=== PATIENT | male | born 1945 | race Caucasian/White ===

== ENCOUNTER → 2019-01-25 | Day surgery (SDC) | payer MEDICARE ==
[~2019-01-25] MED LIST: LACTATED RINGERS 1,000 ML IV SCH; LIDOCAINE 1% 20 ML VIAL (10MG/ML) FOR IV START INTRADERMA PRN; PROPOFOL 10 MG/ML 20 ML VIAL IV ONE
[2019-01-25 07:41] VITALS: TEMP 97.3
[2019-01-25 07:56] LABS: Glucose,Whole Blood 77 mg/dL (75-99)
[2019-01-25 08:38] VITALS: RESP 17
--- NOTE | 2019-01-25 08:40 | P.PCN ---
Date of Procedure: 01/25/19 Procedure(s) Performed: BRIEF HISTORY: Patient is a 73-year-old pleasant male, scheduled for an elective colonoscopy as a part of surveillance of prior history of colon polyps. Last colonoscopy was 5 years ago. PROCEDURE PERFORMED: Colonoscopy with snare polypectomy and Endo Clip placement. PREOPERATIVE DIAGNOSIS: History of colon polyps. IV sedation per Anesthesia. PROCEDURE: After informed consent was obtained, the patient, was brought into the endoscopy unit. IV sedation was administered by Anesthesia under continuous monitoring. Digital rectal examination was normal. Initially the Olympus CF-160 flexible video colonoscope was then inserted in the rectum, gradually advanced into the cecum without any difficulty. Careful examination was performed as the scope was gradually being withdrawn. Ileocecal valve and the appendiceal orifice were visualized and appeared normal. Prep was excellent. In the base of the cecum there was a 3 cm broad-based polyp that was removed by piecemeal snare polypectomy following which an Endo Clip was placed. Almost complete polypectomy was accomplished. Mucosa of the cecum, ascending colon, appeared normal. The transverse colon there was a 5 mm polyp that was removed by snare polypectomy. In the sigmoid colon there was a 1 cm pegylated polyp removed by snare polypectomy. In the mid rectum there was another 1 m polyp removed by snare polypectomy. The rest of the transverse colon, descending colon, sigmoid colon, and rectum appeared normal scattered diffuse diverticulosis seen.. Retroflexion was performed in the rectum and no lesions were seen. The patient tolerated the procedure well. IMPRESSION: 3 cm broad-based cecal polyp in the base of the cecum status post piecemeal snare polypectomy followed by Endo Clip placement 5 mm transverse colon polyp status post polypectomy 1 cm sigmoid colon polyp status post polypectomy 1 cm mid rectal polyp status post polypectomy Diffuse diverticulosis RECOMMENDATIONS: Findings of this examination were discussed with the patient as well as his family. He was advised to follow with the biopsy results. He'll be seen in the office in 10 days and based on the biopsy results will plan a repeat colonoscopy in 3-6 months to ensure complete polypectomy.
[2019-01-25 08:48] VITALS: BP 117/74; PULSE 74
== END ==
LOC: ORWHC2ENDO 07:13
PROVIDERS: ATTEND Internal Medicine Gastroenterology
DX: Z12.11 Encounter for screening for malignant neoplasm of colon (principal); D12.0 Benign neoplasm of cecum; K62.1 Rectal polyp; K62.89 Other specified diseases of anus and rectum; K63.89 Other specified diseases of intestine; K63.3 Ulcer of intestine; K57.90 Diverticulosis of intestine, part unspecified, without perforation or abscess without bleeding; Z86.010 Personal history of colon polyps; I10 Essential (primary) hypertension; E78.5 Hyperlipidemia, unspecified; R60.0 Localized edema; G47.33 Obstructive sleep apnea (adult) (pediatric); E11.9 Type 2 diabetes mellitus without complications; H40.9 Unspecified glaucoma; Z79.84 Long term (current) use of oral hypoglycemic drugs; Z79.82 Long term (current) use of aspirin; Z79.899 Other long term (current) drug therapy; Z91.041 Radiographic dye allergy status
CPT/HCPCS: 45385; 88305; J2704; 45382

== ENCOUNTER → 2024-04-03 | Outpatient (CLI) | payer MEDICARE ==
[2024-04-03 10:26] LABS: African American GFR (CKD) 50 (>60 ml/min/1.73 sqM); Blood Urea Nitrogen 37 mg/dL (9-20); Non-African American GFR(CKD) 43 (>60 ml/min/1.73 sqM)
--- NOTE | 2024-04-03 11:49 | XR ---
EXAMINATION TYPE: XR chest 2V DATE OF EXAM: 04/03/2024 11:14 AM COMPARISON: Chest radiographs from CLINICAL INDICATION: Male, 78 years old with history of, concern for pancreatic cancer, looking for m etastatic disease. TECHNIQUE: XR chest 2V Frontal and lateral views of the chest. FINDINGS: Lungs/Pleura: There is no evidence of pleural effusion, focal consolidation, or pneumothorax. Pulmonary vascularity: Unremarkable. Heart/mediastinum: Cardiomediastinal silhouette is unremarkable. Musculoskeletal: No acute osseous pathology. Other findings: None IMPRESSION: No acute cardiopulmonary disease/process. [facility], , 04/03/2024 11:46 AM
--- NOTE | 2024-04-03 17:27 | CT ---
EXAMINATION TYPE: CT urogram wo/w con CT DLP: 4545 mGycm, Automated exposure control for dose reduction was used. DATE OF EXAM: 04/03/2024 11:13 AM COMPARISON: None CLINICAL INDICATION:Male, 78 years old with history of C61 PROSTATE CANCER; PHH, prostate ca TECHNIQUE: Urogram of the abdomen and pelvis was performed before and after the administration of 80 cc of IV co ntrast Isovue 300 contrast. Delayed imaging was performed. Coronal and sagittal reformats were perfor med. One or more CT dose reduction strategies were utilized during this examination. 2D and 3D recons tructions are performed to assist visualization of the urinary tract on a separate workstation. FINDINGS: GENITOURINARY: RIGHT KIDNEY AND URETER: Couple of nonobstructive calculi with largest measuring up to 3 mm. No hydro nephrosis or hydroureter. Upper pole thin-walled peripherally calcified 3.2 cm nonenhancing cyst. The wall measures up to 3 mm in thickness. Exophytic right lower pole nonenhancing 5.1 cm cyst. No uroth elial lesions: no filling defect, dilation, stricture or wall thickening. LEFT KIDNEY AND URETER: Nonobstructive lower pole 2 mm calculus. No hydronephrosis or hydroureter. Po sterior left mid kidney exophytic 1.8 cm nonenhancing cyst. Additional superior pole nonenhancing 1.1 cm cyst. No urothelial lesions: no filling defect, dilation, stricture or wall thickening. URINARY BLADDER: Not optimally distended. Normal, no calculi, mass or other lesions. REPRODUCTIVE: Mildly enlarged prostate gland measuring 5.0 cm in transverse dimension. Median lobe in dents upon the urinary bladder base. There is some subtle patchy heterogenous enhancement within the left lateral aspect of the prostate gland. Right-sided hydrocele partially visualized. ABDOMEN LIVER: Calcified granuloma within the right hepatic dome. Couple of hepatic cysts with largest measur ing up to 3.2 cm.. Liver is diffusely hypodense tendon consistent with steatosis. GALLBLADDER AND BILE DUCTS: Unremarkable PANCREAS: Unremarkable. SPLEEN: Scattered calcified granulomas. ADRENAL GLANDS: Unremarkable. STOMACH AND BOWEL: Pancolonic diverticulosis. No focal bowel wall thickening or surrounding inflammat ory changes. The appendix is within normal limits. No evidence of bowel obstruction. PERITONEUM: No evidence of pneumoperitoneum, free fluid. No enlarged lymph nodes greater than 1 cent imeter short axis. VASCULATURE: Mild atherosclerotic calcifications are present throughout the abdominal aorta and its b ranches. No abdominal aortic aneurysm. MUSCULOSKELETAL: No acute osseous abnormalities. No aggressive osseous lesion. Postsurgical changes f rom lumbar fusion at L1-S1 with bilateral pedicular screws and rods and disc spaces. Laminectomy post ges identified at L3. [facility] of the lower thoracic spine. Grade 1 anterolisthesis of L3 on L4. Mild ret rolisthesis of L1 on L2. SOFT TISSUE/ABDOMINAL WALL: Small fat filled umbilical hernia. LOWER CHEST: Cardiomegaly. Moderate coronary artery calcifications. Aortic valvular calcifications. B ilateral gynecomastia.. Calcified granuloma within the left lung base. Bibasilar linear scarring or a telectasis. IMPRESSION: 1. No evidence of enhancing renal/urothelial neoplasm. Bilateral simple renal cysts with a right carlos l upper pole 3.2 cm Bosniak IIF cyst without evidence of enhancement. Follow-up CT or MR abdomen (court al mass protocol) in 6 months is recommended. Additional nonobstructive bilateral renal calculi. 2. Prostatomegaly with some patchy enhancement within the left lateral aspect which may represent pro state cancer. No lymphadenopathy. 3. Pancolonic diverticulosis. 4. Sequelae of prior granulomatous disease. 5. Hepatic steatosis. [facility], , 04/03/2024 5:24 PM
== END | disposition home or self-care (01) ==
LOC: RADCTMAIN 09:19
PROVIDERS: ATTEND Urology
CPT/HCPCS: 36415; 71046; 74178; 74400; 82565; 84520

== ENCOUNTER → 2024-05-09 | Outpatient (CLI) | payer MEDICARE ==
--- NOTE | 2024-05-09 21:14 | NM ---
EXAMINATION TYPE: NM bone scan whole body DATE OF EXAM: 05/09/2024 2:04 PM CLINICAL INDICATION:Male, 78 years old with history of C61 PROSTATE CX; COMPARISON: 04/03/2024 TECHNIQUE: Intravenous administration 21.5 mCi Tc 99m MDP followed by multiple scintigraphic images o f the appendicular and axial skeleton. Images acquired 4 hours post injection. FINDINGS: No abnormal uptake is identified within the appendicular or axial skeleton to suggest metastatic dise ase. There is increased uptake within the bilateral shoulder, sternoclavicular, and sacroiliac joints con sistent with degenerative changes. No other photopenic areas or areas of increased activity are ident ified. Physiologic radiotracer activity is demonstrated in the kidneys and bladder. IMPRESSION: Nothing to suggest metastatic disease. [facility], , 05/09/2024 9:12 PM
== END | disposition home or self-care (01) ==
LOC: RADNMMAIN 09:05
PROVIDERS: ATTEND Urology
DX: C61 Malignant neoplasm of prostate (principal)
CPT/HCPCS: 78306; A9503

== ENCOUNTER 2024-08-12 20:22 | Inpatient (IN) | payer MEDICARE ==
--- NOTE | 2024-08-12 20:42 | ED ---
Abdominal Pain HPI - General Chief Complaint: Abdominal Pain Stated Complaint: Abd Pain Time Seen by Provider: 08/12/24 20:41 Source: patient, EMS Mode of arrival: EMS Limitations: no limitations - History of Present Illness Initial Comments: 79-year-old male presented the ER via EMS for evaluation of abdominal pain. 3 hours prior to arrival patient started to experience a sharp epigastric abdominal discomfort. He states it is consistent and rating his pain currently a 10 out of 10. He denies any nausea, vomiting, fevers, chills, diarrhea or urinary complaints. Patient reports his last bowel movement was approximately 3 days ago. He denies any chest pain, shortness of breath, dizziness, lightheadedness, cough, congestion or peripheral edema. Upon examination, patient appears to be in pain and is requesting pain medication. Patient did receive 50 mcg of fentanyl and 4 mg of Zofran by EMS. Patient has prostate cancer and is currently scheduled to begin radiation soon. He is unsure who his oncologist is. No other complaints. - Related Data Home Medications Medication Instructions Recorded Confirmed Aspirin [Adult Low Dose Aspirin EC] 81 mg PO DAILY 01/24/19 01/25/19 Atorvastatin [Lipitor] 20 mg PO QAM 01/24/19 01/25/19 Furosemide [Lasix] 20 mg PO QAM 01/24/19 01/25/19 Glimepiride [Amaryl] 4 mg PO BID 01/24/19 01/25/19 Latanoprost/Pf [Latanoprost 0.005% 1 drops BOTH EYES HS 01/24/19 01/25/19 Eye Drop] Metoprolol Tartrate [Lopressor] 50 g PO BID 01/24/19 01/25/19 Potassium Chloride [K-Tab ER] 10 meq PO QAM 01/24/19 01/25/19 Timolol 0.5% Ophth Soln [Timoptic 1 drop BOTH EYES BID 01/24/19 01/25/19 0.5% Ophth Soln] metFORMIN HCL [Glucophage] 1,000 mg PO BID 01/24/19 01/25/19 Allergies Allergy/AdvReac Type Severity Reaction Status Date / Time Iodinated Contrast Media Allergy Swelling Verified 08/12/24 20:29 [Iodinated Contrast- Oral and IV Dye] Review of Systems ROS Statement: Those systems with pertinent positive or pertinent negative responses have been documented in the HPI. ROS Other: All systems not noted in ROS Statement are negative. Past Medical History Past Medical History: Cancer, Diabetes Mellitus, Eye Disorder, Hyperlipidemia, Hypertension Additional Past Medical History / Comment(s): Glaucoma, Stage 3 pancreatic ca History of Any Multi-Drug Resistant Organisms: None Reported Additional Past Surgical History / Comment(s): NASAL POLYPS. Past Anesthesia/Blood Transfusion Reactions: No Reported Reaction Additional Past Anesthesia/Blood Transfusion Reaction / Comment(s): DAD, POST DENTAL PROCESS (SYNCOPE) Past Psychological History: No Psychological Hx Reported Smoking Status: Never smoker Past Alcohol Use History: Rare Past Drug Use History: None Reported General Exam Limitations: no limitations General appearance: alert, in no apparent distress, other (Appears uncomfortable and in pain) Respiratory exam: Present: normal lung sounds bilaterally. Absent: respiratory distress, wheezes, rales, rhonchi, stridor Cardiovascular Exam: Present: normal rhythm, irregular rhythm, normal heart sounds. Absent: systolic murmur, diastolic murmur, rubs, gallop, clicks GI/Abdominal exam: Present: soft, tenderness (Exquisite epigastric), normal bowel sounds Extremities exam: Present: normal inspection, full ROM, normal capillary refill. Absent: tenderness, pedal edema, joint swelling, calf tenderness Neurological exam: Present: alert, oriented X3, CN II-XII intact Skin exam: Present: warm, dry, intact, normal color. Absent: rash Course Vital Signs 08/12/24 08/12/24 08/12/24 20:25 21:35 22:23 Temperature 98.1 F Pulse Rate 61 71 78 Respiratory 18 18 10 L Rate Blood Pressure 94/47 115/58 93/67 O2 Sat by Pulse 94 L 97 95 Oximetry - Reevaluation(s) Reevaluation #1: 08/12/24 21:45 Case discussed with on-call general surgery, Dr. Raymond, who advised on emergent surgical intervention. Requesting ICU bed post op. 08/12/24 21:47 Patient reevaluated. Family at bedside. No signs of acute distress. Patient currently rating pain 9-10. Patient and family are agreeable for surgical intervention at this time. Medical Decision Making - Medical Decision Making Was pt. sent in by a medical professional or institution (, PA, SLUBBER TENDER, urgent care, hospital, or senior living...) When possible be specific @ -No Did you speak to anyone other than the patient for history (EMS, parent, family, police, friend...)? What history was obtained from this source @ -Family, at bedside, aiding in HPI and past medical history. Did you review nursing and triage notes (agree or disagree)? Why? @ -I reviewed and agree with nursing and triage notes Were old charts reviewed (outside hosp., previous admission, EMS record, old EKG, old radiological studies, urgent care reports/EKG's, senior living records)? Report findings @ -No old charts were reviewed Differential Diagnosis (chest pain, altered mental status, abdominal pain women, abdominal pain men, vaginal bleeding, weakness, fever, dyspnea, syncope, headache, dizziness, GI bleed, back pain, seizure, CVA, palpatations, mental health, musculoskeletal)? @ -Differential Abdominal Pain Men:Appendicitis, cholecystitis, diverticulosis, ischemic bowel, pancreatitis, hepatitis, UTI, gastroenteritis, AAA, incarcerated hernia, bowel obstruction, constipation, inflammatory bowel, hepatitis, peptic ulcer disease, splenic infarction, perforated viscus, testicular torsion, this is not meant to be an all-inclusive list EKG interpreted by me (3pts min.). @ -As above X-rays interpreted by me (1pt min.). @ -None done CT interpreted by me (1pt min.). @ -CT abdomen pelvis showing extensive pneumoperitoneum throughout the abdomen. Likely due to perforation of either the stomach or proximal duodenum. U/S interpreted by me (1pt. min.). @ -None done What testing was considered but not performed or refused? (CT, X-rays, U/S, labs)? Why? @ -None What meds were considered but not given or refused? Why? @ -None Did you discuss the management of the patient with other professionals (professionals i.e. DrJuan José, PA, SLUBBER TENDER, lab, RT, psych nurse, social media sr strategy manager, brilliandeer looper, teacher, deputy juvenile officer, egg caser)? Give summary @ -Yes, case discussed with on-call surgery, Dr. Raymond, who advised on emergent surgical intervention. Also, requesting ICU bed post op. Dr. Le discussed ICU admission, post op, with Dr. Carbajal. Was smoking cessation discussed for >3mins.? @ -No Was critical care preformed (if so, how long)? @ -Yes, 31 minutes Were there social determinants of health that impacted care today? How? (Homelessness, low income, unemployed, alcoholism, drug addiction, transp ortation, low edu. Level, literacy, decrease access to med. care, detention, rehab)? @ -No Was there de-escalation of care discussed even if they declined (Discuss DNR or withdrawal of care, Hospice)? DNR status @ -No What co-morbidities impacted this encounter? (DM, HTN, Smoking, COPD, CAD, Cancer, CVA, ARF, Chemo, Hep., AIDS, mental health diagnosis, sleep apnea, morbid obesity)? @ -Diabetes mellitus, atrial fibrillation on Xarelto, hypertension, prostate cancer not currently on radiation or chemotherapy, Hyperlipidemia Was patient admitted / discharged? Hospital course, mention meds given and route, prescriptions, significant lab abnormalities, going to OR and other pe rtinent info. @ -To OR. 79 year old male presenting to the ER via EMS for evaluation for sudden onset abdominal pain. Vitals upon arrival remarkable for temperature 98.1F, heart rate 61, respiratory rate 18, blood pressure 94/47, oxygen saturation 94% on room air. Patient appears extremely uncomfortable screaming in pain requesting pain medicine upon evaluation. There is exquisite epigastric abdominal tenderness noted. Laboratory studies obtained showing a leukocytosis of 11.0. Microcytic hypochromic anemia with a hemoglobin of 7.0. PT 14.5, INR 1.4, PT APTT 22.5. Lactic 2.3. TY with a BUN of 93, creatinine 2.55 with a GFR 23. Lipase 1098. Troponin elevated at 0.045. EKG showing atrial fibrillation ventricular rate 71. CT abdomen pelvis showing extensive pneumoperitoneum. Laboratory and CT findings discussed with on-call surgery, Dr. Raymond, who advised on emergent surgical intervention. Family is agreeable. Surgery also requesting ICU bed after surgery. Patient given 1 L IV fluid bolus, Toradol, Dilaudid in the emergency department for pain control. Blood pressure improvement to 115/58 after IV fluid bolus. Blood cultures obtained and patient started on Unasyn for infection prophylaxis. Given hemoglobin of 7, 2 units of packed red blood cells ordered. Patient will go to the OR from the emergency department for surgical intervention. Case discussed with ED attending, Dr. Le, who spoke with Dr. Carbajal for ICU admission. Undiagnosed new problem with uncertain prognosis? @ -No Drug Therapy requiring intensive monitoring for toxicity (Heparin, Nitro, Insulin, Cardizem)? @ -No Were any procedures done? @ -No Diagnosis/symptom? @ -Pneumoperitoneum Acute, or Chronic, or Acute on Chronic? @ -Acute Uncomplicated (without systemic symptoms) or Complicated (systemic symptoms)? @ -Complicated Side effects of treatment? @ -No Exacerbation, Progression, or Severe Exacerbation? @ -No Poses a threat to life or bodily function? How? (Chest pain, [place], [place], pneumonia, PE, COPD, DKA, ARF, appy, cholecystitis, CVA, Diverticulitis, Homicidal, Suicidal, threat to staff... and all critical care pts) @ -Yes - Lab Data Result diagrams: 08/12/24 20:30 08/12/24 20:30 Lab Results 08/12/24 08/12/24 08/12/24 Range/Units 20:30 20:30 20:30 WBC 11.0 H (3.8-10.6) k/uL RBC 3.04 L (4.30-5.90) m/uL Hgb 7.0 L (13.0-17.5) gm/dL Hct 23.7 L (39.0-53.0) % MCV 78.1 L (80.0-100.0) fL MCH 23.2 L (25.0-35.0) pg MCHC 29.6 L (31.0-37.0) g/dL RDW 21.6 H (11.5-15.5) % Plt Count 500 H (150-450) k/uL MPV 6.7 Neutrophils % (Manual) 89 % Lymphocytes % (Manual) 9 % Eosinophils % (Manual) 2 % Neutrophils # (Manual) 9.79 H (1.3-7.7) k/uL Lymphocytes # (Manual) 0.99 L (1.0-4.8) k/uL Eosinophils # (Manual) 0.22 (0-0.7) k/uL Nucleated RBCs 0 (0-0) /100 WBC Manual Slide Review Performed Polychromasia Present Hypochromasia Marked Poikilocytosis Slight Poikilocytosis (manual Present Anisocytosis Moderate Anisocytosis (manual) Present Microcytosis Moderate Ovalocytes Present Fragmented RBCs Present PT (10.0-12.5) sec INR (<1.2) APTT (22.0-30.0) sec Sodium 137 (137-145) mmol/L Potassium 4.0 (3.5-5.1) mmol/L Chloride 95 L (98-107) mmol/L Carbon Dioxide 31 H (22-30) mmol/L Anion Gap 11 mmol/L BUN 93 H (9-20) mg/dL Creatinine 2.55 H (0.66-1.25) mg/dL Est GFR (CKD-EPI)AfAm 27 (>60 ml/min/1.73 sqM) Est GFR (CKD-EPI)NonAf 23 (>60 ml/min/1.73 sqM) Glucose 198 H (74-99) mg/dL Plasma Lactic Acid Amari 2.3 H* (0.7-2.0) mmol/L Calcium 8.5 (8.4-10.2) mg/dL Total Bilirubin 1.1 (0.2-1.3) mg/dL AST 25 (17-59) U/L ALT 15 (4-49) U/L Alkaline Phosphatase 70 (38-126) U/L Troponin I (0.000-0.034) ng/mL Total Protein 6.0 L (6.3-8.2) g/dL Albumin 2.9 L (3.5-5.0) g/dL Amylase 66 (30-110) U/L Lipase 1098 H (23-300) U/L Blood Type Recheck Bld Type Recheck Status Crossmatch Spec Expiration Date 08/12/24 08/12/24 08/12/24 Range/Units 20:30 20:30 21:25 WBC (3.8-10.6) k/uL RBC (4.30-5.90) m/uL Hgb (13.0-17.5) gm/dL Hct (39.0-53.0) % MCV (80.0-100.0) fL MCH (25.0-35.0) pg MCHC (31.0-37.0) g/dL RDW (11.5-15.5) % Plt Count (150-450) k/uL MPV Neutrophils % (Manual) % Lymphocytes % (Manual) % Eosinophils % (Manual) % Neutrophils # (Manual) (1.3-7.7) k/uL Lymphocytes # (Manual) (1.0-4.8) k/uL Eosinophils # (Manual) (0-0.7) k/uL Nucleated RBCs (0-0) /100 WBC Manual Slide Review Polychromasia Hypochromasia Poikilocytosis Poikilocytosis (manual Anisocytosis Anisocytosis (manual) Microcytosis Ovalocytes Fragmented RBCs PT 14.5 H (10.0-12.5) sec INR 1.4 H (<1.2) APTT 22.5 (22.0-30.0) sec Sodium (137-145) mmol/L Potassium (3.5-5.1) mmol/L Chloride (98-107) mmol/L Carbon Dioxide (22-30) mmol/L Anion Gap mmol/L BUN (9-20) mg/dL Creatinine (0.66-1.25) mg/dL Est GFR (CKD-EPI)AfAm (>60 ml/min/1.73 sqM) Est GFR (CKD-EPI)NonAf (>60 ml/min/1.73 sqM) Glucose (74-99) mg/dL Plasma Lactic Acid Amari (0.7-2.0) mmol/L Calcium (8.4-10.2) mg/dL Total Bilirubin (0.2-1.3) mg/dL AST (17-59) U/L ALT (4-49) U/L Alkaline Phosphatase (38-126) U/L Troponin I 0.045 H* (0.000-0.034) ng/mL Total Protein (6.3-8.2) g/dL Albumin (3.5-5.0) g/dL Amylase (30-110) U/L Lipase (23-300) U/L Blood Type Recheck No Previous Record Bld Type Recheck Status CABO Indicated Crossmatch See Detail Spec Expiration Date 08/15/2024 2574 - Radiology Data Radiology results: report reviewed, image reviewed Disposition Clinical Impression: Pneumoperitoneum Disposition: ADMITTED IP TO THIS [facility] Condition: Serious Time of Disposition: 21:44
[2024-08-12] MEDS: HYDROmorphone 1 MG/ML 1 ML SYRINGE IVP STA ×2 (20:49→21:50)
[2024-08-12] MEDS: KETOROLAC 15 MG/ML 1 ML VIAL IVP STA (20:49)
[2024-08-12] MEDS: SODIUM CHLORIDE 0.9% 1,000 ML IV ONE ×3 (20:50→23:43)
[2024-08-12 21:03] LABS: Anisocytosis Moderate; HCT 23.7 % (39.0-53.0); Hypochromasia Marked; MCH 23.2 pg (25.0-35.0); MCHC 29.6 g/dL (31.0-37.0); MCV 78.1 fL (80.0-100.0); Mean Platelet Volume 6.7; Microcytosis Moderate; Platelet Count 500 k/uL (150-450); Poikilocytosis Slight; RBC 3.04 m/uL (4.30-5.90); RDW 21.6 % (11.5-15.5)
[2024-08-12 21:13] LABS: INR 1.4 (<1.2); Partial Thromboplastin Time 22.5 sec (22.0-30.0); Prothrombin Time 14.5 sec (10.0-12.5)
[2024-08-12 21:29] LABS: ALT 15 U/L (4-49); AST 25 U/L (17-59); African American GFR (CKD) 27 (>60 ml/min/1.73 sqM); Albumin 2.9 g/dL (3.5-5.0); Alkaline Phosphatase 70 U/L (38-126); Amylase 66 U/L (30-110); Anion Gap 11 mmol/L; Blood Urea Nitrogen 93 mg/dL (9-20); Calcium 8.5 mg/dL (8.4-10.2); Carbon Dioxide 31 mmol/L (22-30); Chloride 95 mmol/L (98-107); Glucose 198 mg/dL (74-99); Lipase 1098 U/L (23-300); Non-African American GFR(CKD) 23 (>60 ml/min/1.73 sqM); Sodium 137 mmol/L (137-145); Total Bilirubin 1.1 mg/dL (0.2-1.3)
--- NOTE | 2024-08-12 21:33 | CT ---
EXAMINATION TYPE: CT abdomen pelvis wo con DATE OF EXAM: 08/12/2024 9:19 PM COMPARISON: PET CT 11/11/2024. CLINICAL INDICATION: Male, 79 years old with history of abdominal pain; Pt presents to ER via EMS. Pt complains of abdominal pain x3 hours, infrequent bowel movements recently. UNABLE TO BRING ARMS ABOV E HEAD DUE TO CONDITION TECHNIQUE: Axial CT abdomen pelvis wo con;Sagittal and coronal reformats were created on a separate workstation. Oral contrast used: without Oral Contrast (none if empty) CT DLP: 1400 mGycm, Automated exposure control for dose reduction was used. FINDINGS: LOWER CHEST: Cardiomegaly and lower lobe atelectasis. ABDOMEN LIVER: Unremarkable GALLBLADDER AND BILE DUCTS: Unremarkable. PANCREAS: Unremarkable. SPLEEN: Unremarkable. ADRENAL GLANDS: Unremarkable. KIDNEYS AND URETERS: No evidence of hydronephrosis or renal calculus. The ureters are unremarkable. Stable peripherally calcified exophytic lesion in the superior right kidney. Additional hypodense les ion in the left kidney. PELVIS BLADDER: No evidence for wall thickening or mass given limitations of exam. REPRODUCTIVE: Unremarkable. ABDOMEN & PELVIS STOMACH AND BOWEL: Extensive colonic diverticulosis without acute diverticulitis. Wall thickening of the distal stomach and proximal duodenum with extensive surrounding free air/pneumoperitoneum. PERITONEUM/RETROPERITONEUM: Extensive free air/pneumoperitoneum. No drainable abscess. VASCULATURE: No evidence of aortic aneurysm. MUSCULOSKELETAL: Multilevel thoracic or lumbar spine degenerative changes with extensive posterior fu enzo hardware visualized spanning L1-S1 with multilevel intervertebral disc spacer devices. LYMPH NODES: No gross evidence for lymphadenopathy. SOFT TISSUE/ABDOMINAL WALL: Unremarkable IMPRESSION: Extensive pneumoperitoneum throughout the abdomen, likely due to perforation of either the stomach or proximal duodenum. Recommend emergent surgical consultation. *Critical findings were relayed to [facility] PAC at approximately 9:25 PM on 08/12/2024. [facility], , 08/12/2024 9:30 PM
[2024-08-12] MEDS: AMPICILLIN-SULBACTAM 3 GM in SODIUM CHLORIDE 0.9% 100 ML IVPB STA (21:54)
[2024-08-12] MEDS ORDERED: NALOXONE 0.4 MG/ML 1 ML VIAL IV PRN (22:01)
[2024-08-12 22:25] LABS: Anisocytosis (M) Present; Eosinophils # (M) 0.22 k/uL (0-0.7); Lymphocytes # (M) 0.99 k/uL (1.0-4.8); Neutrophils # (M) 9.79 k/uL (1.3-7.7); Neutrophils % (M) 89 %; Nucleated Red Blood Cells 0 /100 WBC (0-0); Poikilocytosis (M) Present; Total Cells Counted 100
[2024-08-12 22:26] LABS: Polychromasia Present
[2024-08-12 22:27] LABS: Ovalocytes Present; RBC Fragments Present
[2024-08-12 23:25] LABS: Glucose,Whole Blood 180 mg/dL (70-110)
[2024-08-12] MEDS ORDERED: ROCURONIUM 10 MG/ML (5 ML VIAL) IV ONE (23:42)
[2024-08-12] MEDS ORDERED: PHENYLEPHRINE 10 MG/ML VIAL ONE (23:42)
[2024-08-12] MEDS ORDERED: SUCCINYLCHOLINE CHLORIDE 200 MG/10 ML VIAL IV ONE (23:42)
[2024-08-12] MEDS ORDERED: PROPOFOL 10 MG/ML 20 ML VIAL IV ONE (23:42)
[2024-08-12] MEDS ORDERED: MIDAZOLAM 2 MG/2 ML VIAL ONE (23:42)
[2024-08-12] MEDS ORDERED: LIDOCAINE 1% INJ 10MG/ML (20 ML MDV) ONE (23:42)
[2024-08-12] MEDS ORDERED: fentaNYL (PF) 50 MCG/ML 2 ML AMP ONE (23:42)
[2024-08-13 01:23] LABS: Glucose,Whole Blood 148 mg/dL (70-110)
--- NOTE | 2024-08-13 01:26 | P.ANPRN ---
Procedure Note - Anesthesia - Invasive Line Left Arterial Line Time Out Performed: Yes (2345) Date of Procedure: 08/12/24 Time of Procedure: 23:46 Location of Patient: OR Preparation: Sterile Prep, Sterile Dressing Arterial Line Location: Radial (left) Ultrasound Used: No Purpose - Visualization and Identification of Vasculature: No Needle Guage: 20g Image Stored and Saved: No Narrative: Invasive line placement per sterile protocol utilized. Sterile protocol. Lumen blood and flushed. Secured and dressed
--- NOTE | 2024-08-13 01:27 | P.ANPRN ---
Procedure Note - Anesthesia - Invasive Line Right Central Line Time Out Performed: Yes (1300) Date of Procedure: 08/13/24 Time of Procedure: 13:01 Location of Patient: OR Preparation: Sterile Prep, Sterile Dressing Central Line Location: Internal Jugular (right ij) Ultrasound Used: Yes Purpose - Visualization and Identification of Vasculature: Yes Needle Guage: 18-gauge angio Image Stored and Saved: Yes Narrative: Invasive line placement per sterile protocol utilized. Anesthesia note Procedure: Right internal jugular central venous catheter insertion: Triple- lumen catheter Sterile protocol followed. Right neck prepped. Ultrasound used. Lidocaine 1% used. Using ultrasound local anesthetic was instilled site over right Internal Jugular vein. Angiocath was used to gain access via ultrasound. Once free flow non-pulsatile blood flow was confirmed, 12 inch extension tubing was then placed on Angiocath. Once central venous pressure was confirmed, J-wire was then placed through Angiocath. Angiocath was then withdrawn. Local was instilled at J-wire site. Small skin sreekanth was then made with provided sterile scalpel. After dilating with the dilator, right IJ triple-lumen catheter was then inserted over the wire while maintaining control of wire at all times. Uneventful insertion . Free flow nonpulsatile blood flow through Cordis. Hooked up to IV tubing. Secured with suture. Dressings applied. Drapes Removed. Attempts x1.
[2024-08-13 01:34] LABS: ABG Base Excess -1.1 mmol/L; ABG HCO3 23 mmol/L (21-25); ABG Oxygen Saturation >100.0 % (94-97); ABG PCO2 36 mmHg (35-45); ABG PH 7.42 (7.35-7.45); ABG TCO2 24 mmol/L (19-24); Allen Test Performed? Yes
[2024-08-13 01:36] LABS: ABG PO2 >420 mmHg (83-108)
[2024-08-13] MEDS: NOREPINEPHRINE 4 MG in SODIUM CHLORIDE 0.9% 250 ML IV SCH (01:45)
--- NOTE | 2024-08-13 01:54 | P.GSHP ---
History of Present Illness H&P Date: 08/12/24 79-year-old male presented the ER via EMS for evaluation of abdominal pain. 3 hours prior to arrival patient started to experience a sharp epigastric abdominal discomfort. He states it is consistent and rating his pain currently a 10 out of 10. He denies any nausea, vomiting, fevers, chills, diarrhea or urinary complaints. Patient reports his last bowel movement was approximately 3 days ago. He denies any chest pain, shortness of breath, dizziness, lightheadedness, cough, congestion or peripheral edema. Upon examination, patient appears to be in pain and is requesting pain medication. Patient did receive 50 mcg of fentanyl and 4 mg of Zofran by EMS. Patient has [facility] er and is currently scheduled to begin radiation soon. He is unsure who his oncologist is. No other complaints. CT-AP shows pneumoperitoneum concerning for perforated ulcer. Review of Systems ROS Statement: Those systems with pertinent positive or pertinent negative responses have been documented in the HPI. ROS Other: All systems not noted in ROS Statement are negative. Past Medical History Past Medical History: Cancer, Diabetes Mellitus, Eye Disorder, Hyperlipidemia, Hypertension Additional Past Medical History / Comment(s): Glaucoma, Stage 3 pancreatic ca History of Any Multi-Drug Resistant Organisms: None Reported Additional Past Surgical History / Comment(s): NASAL POLYPS. Past Anesthesia/Blood Transfusion Reactions: No Reported Reaction Additional Past Anesthesia/Blood Transfusion Reaction / Comment(s): DAD, POST DENTAL PROCESS (SYNCOPE) Past Psychological History: No Psychological Hx Reported Smoking Status: Never smoker Past Alcohol Use History: Rare Past Drug Use History: None Reported General Exam Limitations: no limitations General appearance: alert, in no apparent distress, other (Appears uncomfortable and in pain) Respiratory exam: Present: normal lung sounds bilaterally. Absent: respiratory distress, wheezes, rales, rhonchi, stridor Cardiovascular Exam: Present: normal rhythm, irregular rhythm, normal heart sounds. Absent: systolic murmur, diastolic murmur, rubs, gallop, clicks GI/Abdominal exam: Present: soft, tenderness (Exquisite epigastric), normal bowel sounds Extremities exam: Present: normal inspection, full ROM, normal capillary refill. Absent: tenderness, pedal edema, joint swelling, calf tenderness Neurological exam: Present: alert, oriented X3, CN II-XII intact Skin exam: Present: warm, dry, intact, normal color. Absent: rash 79 year old male with Pneumoperitoneum concerning for Perforated Ulcer -OR for Exploratory Laparotomy -Unasyn -Will transfuse 2 units PRBCs [facility] [phone] Past Medical History Past Medical History: Cancer, Diabetes Mellitus, Eye Disorder, Hyperlipidemia, Hypertension Additional Past Medical History / Comment(s): Glaucoma, Stage 3 pancreatic ca History of Any Multi-Drug Resistant Organisms: None Reported Additional Past Surgical History / Comment(s): NASAL POLYPS. Past Anesthesia/Blood Transfusion Reactions: No Reported Reaction Additional Past Anesthesia/Blood Transfusion Reaction / Comment(s): DAD, POST DENTAL PROCESS (SYNCOPE) Past Psychological History: No Psychological Hx Reported Smoking Status: Never smoker Past Alcohol Use History: Rare Past Drug Use History: None Reported Medications and Allergies Home Medications Medication Instructions Recorded Confirmed Type Aspirin [Adult Low Dose Aspirin EC] 81 mg PO DAILY 01/24/19 01/25/19 History Atorvastatin [Lipitor] 20 mg PO QAM 01/24/19 01/25/19 History Furosemide [Lasix] 20 mg PO QAM 01/24/19 01/25/19 History Glimepiride [Amaryl] 4 mg PO BID 01/24/19 01/25/19 History Latanoprost/Pf [Latanoprost 0.005% 1 drops BOTH EYES HS 01/24/19 01/25/19 History Eye Drop] Metoprolol Tartrate [Lopressor] 50 g PO BID 01/24/19 01/25/19 History Potassium Chloride [K-Tab ER] 10 meq PO QAM 01/24/19 01/25/19 History Timolol 0.5% Ophth Soln [Timoptic 1 drop BOTH EYES BID 01/24/19 01/25/19 History 0.5% Ophth Soln] metFORMIN HCL [Glucophage] 1,000 mg PO BID 01/24/19 01/25/19 History Allergies Allergy/AdvReac Type Severity Reaction Status Date / Time Iodinated Contrast Media Allergy Swelling Verified 08/12/24 20:29 [Iodinated Contrast- Oral and IV Dye] Surgical - Exam Vital Signs Temp Pulse Resp BP Pulse Ox 98.1 F 61 18 94/47 94 L 08/12/24 20:25 08/12/24 20:25 08/12/24 20:25 08/12/24 20:25 08/12/24 20:25 Results - Labs 08/12/24 20:30 08/12/24 20:30 Abnormal Lab Results - Last 24 Hours (Table) 08/12/24 08/12/24 08/12/24 Range/Units 20:30 20:30 20:30 WBC 11.0 H (3.8-10.6) k/uL RBC 3.04 L (4.30-5.90) m/uL Hgb 7.0 L (13.0-17.5) gm/dL Hct 23.7 L (39.0-53.0) % MCV 78.1 L (80.0-100.0) fL MCH 23.2 L (25.0-35.0) pg MCHC 29.6 L (31.0-37.0) g/dL RDW 21.6 H (11.5-15.5) % Plt Count 500 H (150-450) k/uL Neutrophils # (Manual) 9.79 H (1.3-7.7) k/uL Lymphocytes # (Manual) 0.99 L (1.0-4.8) k/uL PT (10.0-12.5) sec INR (<1.2) ABG pO2 (83-108) mmHg ABG O2 Saturation (94-97) % Hemoglobin (13.0-17.5) gm/dL Chloride 95 L (98-107) mmol/L Carbon Dioxide 31 H (22-30) mmol/L BUN 93 H (9-20) mg/dL Creatinine 2.55 H (0.66-1.25) mg/dL Glucose 198 H (74-99) mg/dL POC Glucose (mg/dL) (70-110) mg/dL Plasma Lactic Acid Amari 2.3 H* (0.7-2.0) mmol/L Troponin I (0.000-0.034) ng/mL Total Protein 6.0 L (6.3-8.2) g/dL Albumin 2.9 L (3.5-5.0) g/dL Lipase 1098 H (23-300) U/L Crossmatch 08/12/24 08/12/24 08/12/24 Range/Units 20:30 20:30 21:25 WBC (3.8-10.6) k/uL RBC (4.30-5.90) m/uL Hgb (13.0-17.5) gm/dL Hct (39.0-53.0) % MCV (80.0-100.0) fL MCH (25.0-35.0) pg MCHC (31.0-37.0) g/dL RDW (11.5-15.5) % Plt Count (150-450) k/uL Neutrophils # (Manual) (1.3-7.7) k/uL Lymphocytes # (Manual) (1.0-4.8) k/uL PT 14.5 H (10.0-12.5) sec INR 1.4 H (<1.2) ABG pO2 (83-108) mmHg ABG O2 Saturation (94-97) % Hemoglobin (13.0-17.5) gm/dL Chloride (98-107) mmol/L Carbon Dioxide (22-30) mmol/L BUN (9-20) mg/dL Creatinine (0.66-1.25) mg/dL Glucose (74-99) mg/dL POC Glucose (mg/dL) (70-110) mg/dL Plasma Lactic Acid Amari (0.7-2.0) mmol/L Troponin I 0.045 H* (0.000-0.034) ng/mL Total Protein (6.3-8.2) g/dL Albumin (3.5-5.0) g/dL Lipase (23-300) U/L Crossmatch See Detail 08/12/24 08/13/24 08/13/24 Range/Units 23:23 01:22 01:30 WBC (3.8-10.6) k/uL RBC (4.30-5.90) m/uL Hgb (13.0-17.5) gm/dL Hct (39.0-53.0) % MCV (80.0-100.0) fL MCH (25.0-35.0) pg MCHC (31.0-37.0) g/dL RDW (11.5-15.5) % Plt Count (150-450) k/uL Neutrophils # (Manual) (1.3-7.7) k/uL Lymphocytes # (Manual) (1.0-4.8) k/uL PT (10.0-12.5) sec INR (<1.2) ABG pO2 >420 H (83-108) mmHg ABG O2 Saturation >100.0 H (94-97) % Hemoglobin 7.6 L (13.0-17.5) gm/dL Chloride (98-107) mmol/L Carbon Dioxide (22-30) mmol/L BUN (9-20) mg/dL Creatinine (0.66-1.25) mg/dL Glucose (74-99) mg/dL POC Glucose (mg/dL) 180 H 148 H (70-110) mg/dL Plasma Lactic Acid Amari (0.7-2.0) mmol/L Troponin I (0.000-0.034) ng/mL Total Protein (6.3-8.2) g/dL Albumin (3.5-5.0) g/dL Lipase (23-300) U/L Crossmatch Diabetes panel 08/12/24 Range/Units 20:30 Sodium 137 (137-145) mmol/L Potassium 4.0 (3.5-5.1) mmol/L Chloride 95 L (98-107) mmol/L Carbon Dioxide 31 H (22-30) mmol/L BUN 93 H (9-20) mg/dL Creatinine 2.55 H (0.66-1.25) mg/dL Glucose 198 H (74-99) mg/dL Calcium 8.5 (8.4-10.2) mg/dL AST 25 (17-59) U/L ALT 15 (4-49) U/L Alkaline Phosphatase 70 (38-126) U/L Total Protein 6.0 L (6.3-8.2) g/dL Albumin 2.9 L (3.5-5.0) g/dL Calcium panel 08/12/24 Range/Units 20:30 Calcium 8.5 (8.4-10.2) mg/dL Albumin 2.9 L (3.5-5.0) g/dL Pituitary panel 08/12/24 Range/Units 20:30 Sodium 137 (137-145) mmol/L Potassium 4.0 (3.5-5.1) mmol/L Chloride 95 L (98-107) mmol/L Carbon Dioxide 31 H (22-30) mmol/L BUN 93 H (9-20) mg/dL Creatinine 2.55 H (0.66-1.25) mg/dL Glucose 198 H (74-99) mg/dL Calcium 8.5 (8.4-10.2) mg/dL Adrenal panel 08/12/24 Range/Units 20:30 Sodium 137 (137-145) mmol/L Potassium 4.0 (3.5-5.1) mmol/L Chloride 95 L (98-107) mmol/L Carbon Dioxide 31 H (22-30) mmol/L BUN 93 H (9-20) mg/dL Creatinine 2.55 H (0.66-1.25) mg/dL Glucose 198 H (74-99) mg/dL Calcium 8.5 (8.4-10.2) mg/dL Total Bilirubin 1.1 (0.2-1.3) mg/dL AST 25 (17-59) U/L ALT 15 (4-49) U/L Alkaline Phosphatase 70 (38-126) U/L Total Protein 6.0 L (6.3-8.2) g/dL Albumin 2.9 L (3.5-5.0) g/dL
--- NOTE | 2024-08-13 03:12 | P.OP ---
Date of Procedure: 08/13/24 Preoperative Diagnosis: Pneumoperitoneum Postoperative Diagnosis: Perforated Gastric Ulcer Procedure(s) Performed: 1. Exploratory Laparotomy 2. Modified Kiet Patch Anesthesia: RODDY Surgeon: Maik Raymond Estimated Blood Loss (ml): 50 Pathology: none sent Condition: critical Disposition: ICU Description of Procedure: The patient was brought to the operating suite and placed in the supine position. Anesthesia was given and endotracheal intubation was performed. A rosenberg catheter was placed. The abdomen was prepped and draped in usual sterile fashion. A timeout was performed. A #10 blade was used to make a midline incision. Bovie electrocautery was used to dissect through the subcutaenous tissue, fascia, and safely into the peritoneal cavity. There was murky free fluid immediately encountered. The abdomen was thoroughly irrigated. A perforated gastric ulcer was observed. The gastrostomy was closed with interrupted #2-0 Silk Sutures. After this was completed, a piece of omentum was mobilized with a ligasure device and this omentum was laid as a patch over the previously closed gastrostomy. The omentum was sutured in place with #2-0 Silk Suture completing the Modified Kiet Patch Repair. The abdomen was again irrigated with copious amount of saline. There was no active bleeding noted. A #19 F drain was placed in close proximity to the repair and sutured to the abdominal wall with #2-0 Silk Suture. The midline fascia was closed with #1 Looped PDS Suture. The skin was approximated with a skin stapler. A sterile dressing was applied. The patient tolerated the procedure and was sent to the ICU in critical condition.
[2024-08-13 03:13] LABS: Anisocytosis Moderate; HCT 25.7 % (39.0-53.0); HGB 7.9 gm/dL (13.0-17.5); Hypochromasia Marked; MCH 24.6 pg (25.0-35.0); MCHC 30.6 g/dL (31.0-37.0); MCV 80.4 fL (80.0-100.0); Mean Platelet Volume 6.8; Microcytosis Slight; Platelet Count 359 k/uL (150-450); Poikilocytosis Slight; WBC 8.1 k/uL (3.8-10.6)
--- NOTE | 2024-08-13 03:26 | XR ---
EXAM: XR Chest, 1 View CLINICAL HISTORY: ITS.REASON XR Reason: tube placement, central line, og tube TECHNIQUE: Frontal view of the chest. COMPARISON: No relevant prior studies available. IMPRESSION: ET tube, NG tube, and right central line in good position
[2024-08-13] MEDS: LACTATED RINGERS 1,000 ML IV SCH (03:48)
[2024-08-13] MEDS: LACTATED RINGERS 1,000 ML IV ONE (03:56)
[2024-08-13 04:26] LABS: Band Neutrophils % 33 %; Lymphocytes # (M) 0.32 k/uL (1.0-4.8); Metamyelocytes # (M) 0.16 k/uL (0); Metamyelocytes % 2 %; Mixed Population RBC Present; Monocytes # (M) 0.16 k/uL (0-1.0); Neutrophils % (M) 60 %; Nucleated Red Blood Cells 0 /100 WBC (0-0); Ovalocytes Present; Total Cells Counted 200
[2024-08-13 04:27] LABS: Anisocytosis (M) Present; Hypochromasia (M) Present; Poikilocytosis (M) Present; Polychromasia Present
[2024-08-13 04:48] LABS: Anisocytosis Slight; HCT 26.8 % (39.0-53.0); HGB 8.2 gm/dL (13.0-17.5); Hypochromasia Marked; MCH 24.5 pg (25.0-35.0); MCHC 30.5 g/dL (31.0-37.0); MCV 80.3 fL (80.0-100.0); Mean Platelet Volume 7.3; Microcytosis Slight; Platelet Count 386 k/uL (150-450); Poikilocytosis Slight; RBC 3.34 m/uL (4.30-5.90); RDW 19.9 % (11.5-15.5); WBC 7.4 k/uL (3.8-10.6)
[2024-08-13 04:58] LABS: African American GFR (CKD) 30 (>60 ml/min/1.73 sqM); Anion Gap 10 mmol/L; Blood Urea Nitrogen 83 mg/dL (9-20); Calcium 7.2 mg/dL (8.4-10.2); Carbon Dioxide 22 mmol/L (22-30); Chloride 105 mmol/L (98-107); Glucose 117 mg/dL (74-99); Non-African American GFR(CKD) 26 (>60 ml/min/1.73 sqM); Potassium 3.2 mmol/L (3.5-5.1); Sodium 137 mmol/L (137-145)
[2024-08-13 05:25] LABS: Amorphous Sediment,Urine Rare /hpf; Appearance,Urine Cloudy (Clear); Bacteria,Urine Rare /hpf; Bilirubin,Urine Negative (Negative); Blood,Urine Negative (Negative); Color,Urine Yellow; Glucose,Urine (UA) 1+ (Negative); Hyaline Casts,Urine 39 /lpf (0-2); Ketones,Urine Negative (Negative); Leukocyte Esterase,Urine Negative (Negative); Mucus,Urine Occasional /hpf; Nitrite,Urine Negative (Negative); Protein,Urine Trace (Negative); RBC,Urine 7 /hpf (0-5); Squamous Epithelial Cell,Urine 2 /hpf (0-4); WBC,Urine 3 /hpf (0-5)
[2024-08-13] MEDS: POTASSIUM CHLORIDE 10 MEQ in WATER FOR INJECTION 1 100ML.BAG IVPB SCH (05:48)
[2024-08-13 05:55] LABS: ABG Base Excess -1.1 mmol/L; ABG HCO3 23 mmol/L (21-25); ABG Oxygen Saturation 99.9 % (94-97); ABG PCO2 34 mmHg (35-45); ABG PH 7.43 (7.35-7.45); ABG PO2 153 mmHg (83-108); ABG TCO2 24 mmol/L (19-24); Allen Test Performed? Yes
[2024-08-13 06:10] LABS: Band Neutrophils % 33 %; Eosinophils # (M) 0.07 k/uL (0-0.7); Lymphocytes # (M) 0.22 k/uL (1.0-4.8); Metamyelocytes % 4 %; Monocytes # (M) 0.37 k/uL (0-1.0); Myelocytes # (M) 0.07 k/uL (0); Myelocytes % 1 %; Neutrophils % (M) 55 %; Nucleated Red Blood Cells 0 /100 WBC (0-0); Total Cells Counted 200
[2024-08-13 06:11] LABS: Anisocytosis (M) Present; Hypochromasia (M) Present; Mixed Population RBC Present; Ovalocytes Present; Poikilocytosis (M) Present; Polychromasia Present
[2024-08-13] MEDS: IPRATROPIUM-ALBUTEROL 3 ML NEB INHALATION SCH (07:51)
[2024-08-13] MEDS: PIPERACILLIN-TAZOBACTAM 3.375 GM in SODIUM CHLORIDE 0.9% 100 ML IVPB SCH (08:03)
[2024-08-13] MEDS ORDERED: FLUCONAZOLE IN NACL,ISO-OSM 200 MG in SALINE 1 200ML.BAG IVPB SCH (09:00)
[2024-08-13] MEDS: VASOPRESSIN 60 UNIT in SODIUM CHLORIDE 0.9% 150 ML IV SCH (09:34)
--- NOTE | 2024-08-13 10:01 | P.PN ---
Progress Note - Text Progress Note Date: 08/13/24 Patient seen and examined. He is POD #1 Exploratory Laparotomy, Modified Kiet Patch, and Abdominal Washout for Perforated Gastric Ulcer. He remains intubated and sedated. He is hypotensive requiring some levophed. The second unit of blood just finish transfusing. No fevers per nursing staff. ABDIAZIZ is serosang VSS General-NAD Abdomen-soft, NT, minimal distention, Incision C/D/I 79 year old male s/p Modified Kiet Patch for Perforated Ulcer -ICU care regarding extubation -Will check post transfusion hgb. Transfuse prn -NPO -NGT-LIS -IV fluids -Zosyn/Diflucan -Monitor ABDIAZIZ drain -Recommend PICC and TPN Maik Raymond [facility] [phone]
[2024-08-13 10:09] LABS: Anisocytosis Slight; HCT 31.4 % (39.0-53.0); HGB 9.4 gm/dL (13.0-17.5); Hypochromasia Marked; MCH 24.7 pg (25.0-35.0); MCHC 30.1 g/dL (31.0-37.0); MCV 82.1 fL (80.0-100.0); Mean Platelet Volume 7.4; Microcytosis Slight; Platelet Count 453 k/uL (150-450); Poikilocytosis Slight; RBC 3.82 m/uL (4.30-5.90); RDW 19.8 % (11.5-15.5); WBC 17.9 k/uL (3.8-10.6)
[2024-08-13] MEDS: CHLORHEXIDINE GLUCONATE 15 ML CUP MUCOUS MEM SCH (10:09)
[2024-08-13] MEDS: FLUCONAZOLE IN NACL,ISO-OSM 200 MG in SALINE 1 100ML.BAG IVPB SCH (10:09)
--- NOTE | 2024-08-13 11:24 | P.CONS ---
History of Present Illness - History of Present Illness This is a pleasant 79 years old male with past medical history of multiple medical problems. Patient currently cannot provide information as he is intubated and on mechanical ventilation. There is no family members at bedside patient presents last night because of abdominal pain documented for 3 hours on presentation. Patient was afebrile but labs reviewed showing mildly elevated lactic acid 2.3 and 2.9, hemoglobin 8.2 and creatinine 2.3. Troponin mildly elevated at 0.04 and elevated lipase 1098. He had CT of the abdomen and pelvis showing extensive pneumoperitoneum throughout the abdomen due to perforated gastric ulcers versus duodenal ulcers. Chest x-ray showing ET tube, NG tube and right side transfer catheter are in good position. EKG showing A-fib with aberrant conduction or PVC, heart rate was around 71. Patient underwent extensive laparotomy with closure of the gastric ulcer perforation. Currently patient is intubated and sedated, his abdomen looks soft and there is dressing in place. Patient already started on fluconazole, Zosyn normal saline/Ringer lactate at 125 as well as pressors Levophed and vasopressin Review of Systems ROS unobtainable: due to endotracheal tube Past Medical History Past Medical History: Cancer, Diabetes Mellitus, Eye Disorder, Hyperlipidemia, Hypertension Additional Past Medical History / Comment(s): Glaucoma, Stage 3 pancreatic ca History of Any Multi-Drug Resistant Organisms: None Reported Additional Past Surgical History / Comment(s): NASAL POLYPS. Past Anesthesia/Blood Transfusion Reactions: No Reported Reaction Additional Past Anesthesia/Blood Transfusion Reaction / Comm: DAD, POST DENTAL PROCESS (SYNCOPE) Past Psychological History: No Psychological Hx Reported Smoking Status: Never smoker Past Alcohol Use History: Rare Past Drug Use History: None Reported Medications and Allergies Home Medications Medication Instructions Recorded Confirmed Type Aspirin [Adult Low Dose Aspirin EC] 81 mg PO DAILY 01/24/19 01/25/19 History Atorvastatin [Lipitor] 20 mg PO QAM 01/24/19 01/25/19 History Furosemide [Lasix] 20 mg PO QAM 01/24/19 01/25/19 History Glimepiride [Amaryl] 4 mg PO BID 01/24/19 01/25/19 History Latanoprost/Pf [Latanoprost 0.005% 1 drops BOTH EYES HS 01/24/19 01/25/19 History Eye Drop] Metoprolol Tartrate [Lopressor] 50 g PO BID 01/24/19 01/25/19 History Potassium Chloride [K-Tab ER] 10 meq PO QAM 01/24/19 01/25/19 History Timolol 0.5% Ophth Soln [Timoptic 1 drop BOTH EYES BID 01/24/19 01/25/19 History 0.5% Ophth Soln] metFORMIN HCL [Glucophage] 1,000 mg PO BID 01/24/19 01/25/19 History Allergies Allergy/AdvReac Type Severity Reaction Status Date / Time Iodinated Contrast Media Allergy Swelling Verified 08/12/24 20:29 [Iodinated Contrast- Oral and IV Dye] Physical Exam Vitals: Vital Signs Temp Pulse Resp BP Pulse Ox FiO2 08/13/24 09:12 30 08/13/24 09:00 80 18 98 40 08/13/24 08:30 80 18 98 40 08/13/24 08:15 82 08/13/24 08:00 98.0 F 74 18 98/52 98 40 08/13/24 07:51 81 08/13/24 07:30 74 18 91/51 99 08/13/24 07:00 66 18 99 08/13/24 06:53 97.4 F L 75 18 100/51 08/13/24 06:45 73 18 99 08/13/24 06:30 74 18 99 08/13/24 06:15 70 18 100 08/13/24 06:00 79 18 100 08/13/24 05:45 66 18 99 08/13/24 05:41 97.1 F L 69 18 96/47 100 08/13/24 05:30 64 18 100 08/13/24 05:21 97.0 F L 76 18 102/49 100 08/13/24 05:15 66 18 90/56 100 08/13/24 05:00 69 18 100 08/13/24 04:45 71 18 100 08/13/24 04:30 68 18 100 08/13/24 04:15 70 17 95/53 99 08/13/24 04:12 40 08/13/24 04:00 98.0 F 67 18 98 40 08/13/24 03:45 61 18 77/42 100 08/13/24 03:30 61 18 100 08/13/24 03:15 71 18 77/42 100 08/13/24 03:02 62 18 100 08/13/24 01:45 64 18 100 08/13/24 01:36 40 08/13/24 01:30 97.9 F 64 18 100 08/13/24 01:26 100 08/13/24 01:18 67 14 100 08/13/24 00:59 100 08/13/24 00:22 96.9 F L 71 18 109/52 100 08/12/24 23:03 75 12 100/54 96 08/12/24 22:23 78 10 L 93/67 95 08/12/24 21:35 71 18 115/58 97 08/12/24 20:25 98.1 F 61 18 94/47 94 L Intake and Output 08/12/24 08/13/24 08/13/24 21:59 06:59 14:59 Intake Total 766.593 Output Total 140 Balance 626.593 Intake: IV 375 Lactated Ringers 1,000 ml 375 @ 125 mls/hr IV .Q8H [facility] Rx#:[id number] Lactated Ringers 1,000 ml @ 999 mls/hr IV .Q1H1M ONE Rx#:[id number] Intake, IV Titration 391.593 Amount Norepinephrine 4 mg In 217.895 Sodium Chloride 0.9% 250 ml @ 0.03 MCG/KG/MIN 11. 302 mls/hr IV .[id number] [facility] Rx#:[id number] Piperacillin-Tazobactam 3 25 .375 gm In Sodium Chloride 0.9% 100 ml @ 25 mls/hr IVPB Q8HR [facility] Rx# :[id number] Potassium Chloride 10 meq 100 In Water For Injection 1 100ml.bag @ 100 mls/hr IVPB Q1H [facility] Rx#: [id number] propofoL 1,000 mg In 48.698 Empty Bag 1 bag @ 15 MCG/ KG/MIN 8.9 mls/hr IV . [id number] [facility] Rx#:[id number] Blood Product Rc As-1 Unit [id number] Rc As-1 Unit [id number] Output: Drainage Right Anterior Urine 130 Oral Regurgitation 10 Other: Voiding Method Weight ABP, PAP, CO, CI - Last 8 Hours Arterial Blood Pressure 94/42 Arterial Blood Pressure 89/44 Arterial Blood Pressure 94/49 Arterial Blood Pressure 96/48 Arterial Blood Pressure 102/47 Arterial Blood Pressure 101/50 Arterial Blood Pressure 107/49 Arterial Blood Pressure 95/47 Arterial Blood Pressure 101/51 Arterial Blood Pressure 98/48 Arterial Blood Pressure 96/47 Arterial Blood Pressure 106/48 Arterial Blood Pressure 98/46 Arterial Blood Pressure 108/50 Arterial Blood Pressure 103/50 Arterial Blood Pressure 103/51 Arterial Blood Pressure 105/48 Arterial Blood Pressure 67/36 Arterial Blood Pressure 89/43 Arterial Blood Pressure 100/45 Arterial Blood Pressure 126/56 Arterial Blood Pressure 108/51 Arterial Blood Pressure 57/18 -GENERAL: The patient is a intubated HEENT: Pupils are round and equally reacting to light. EOMI. No scleral icterus. No conjunctival pallor. Normocephalic, atraumatic. No pharyngeal erythema. No thyromegaly. CARDIOVASCULAR: S1 and S2 present. No murmurs, rubs, or gallops. PULMONARY: Chest is clear to auscultation, no wheezing , no crackles. -ABDOMEN: Soft, nontender, nondistended, normoactive bowel sounds. No palpable organomegaly. Surgical wound with dressing in place MUSCULOSKELETAL: No joint swelling or deformity. EXTREMITIES: No cyanosis, clubbing, or pedal edema. NEUROLOGICAL: Gross neurological examination did not reveal any focal deficits. SKIN: No rashes. no petechiae. Results CBC & Chem 7: 08/13/24 09:57 08/13/24 04:33 Labs: Abnormal Lab Results - Last 24 Hours (Table) 08/12/24 08/12/24 08/12/24 Range/Units 20:30 20:30 20:30 WBC 11.0 H (3.8-10.6) k/uL RBC 3.04 L (4.30-5.90) m/uL Hgb 7.0 L (13.0-17.5) gm/dL Hct 23.7 L (39.0-53.0) % MCV 78.1 L (80.0-100.0) fL MCH 23.2 L (25.0-35.0) pg MCHC 29.6 L (31.0-37.0) g/dL RDW 21.6 H (11.5-15.5) % Plt Count 500 H (150-450) k/uL Neutrophils # (Manual) 9.79 H (1.3-7.7) k/uL Lymphocytes # (Manual) 0.99 L (1.0-4.8) k/uL Metamyelocytes # (Man) (0) k/uL Myelocytes # (Manual) (0) k/uL PT (10.0-12.5) sec INR (<1.2) ABG pCO2 (35-45) mmHg ABG pO2 (83-108) mmHg ABG O2 Saturation (94-97) % Hemoglobin (13.0-17.5) gm/dL Potassium (3.5-5.1) mmol/L Chloride 95 L (98-107) mmol/L Carbon Dioxide 31 H (22-30) mmol/L BUN 93 H (9-20) mg/dL Creatinine 2.55 H (0.66-1.25) mg/dL Glucose 198 H (74-99) mg/dL POC Glucose (mg/dL) (70-110) mg/dL Plasma Lactic Acid Amari 2.3 H* (0.7-2.0) mmol/L Calcium (8.4-10.2) mg/dL Troponin I (0.000-0.034) ng/mL Total Protein 6.0 L (6.3-8.2) g/dL Albumin 2.9 L (3.5-5.0) g/dL Lipase 1098 H (23-300) U/L Urine Protein (Negative) Urine Glucose (UA) (Negative) Urine RBC (0-5) /hpf Amorphous Sediment (None) /hpf Urine Bacteria (None) /hpf Hyaline Casts (0-2) /lpf Urine Mucus (None) /hpf Crossmatch 08/12/24 08/12/24 08/12/24 Range/Units 20:30 20:30 21:25 WBC (3.8-10.6) k/uL RBC (4.30-5.90) m/uL Hgb (13.0-17.5) gm/dL Hct (39.0-53.0) % MCV (80.0-100.0) fL MCH (25.0-35.0) pg MCHC (31.0-37.0) g/dL RDW (11.5-15.5) % Plt Count (150-450) k/uL Neutrophils # (Manual) (1.3-7.7) k/uL Lymphocytes # (Manual) (1.0-4.8) k/uL Metamyelocytes # (Man) (0) k/uL Myelocytes # (Manual) (0) k/uL PT 14.5 H (10.0-12.5) sec INR 1.4 H (<1.2) ABG pCO2 (35-45) mmHg ABG pO2 (83-108) mmHg ABG O2 Saturation (94-97) % Hemoglobin (13.0-17.5) gm/dL Potassium (3.5-5.1) mmol/L Chloride (98-107) mmol/L Carbon Dioxide (22-30) mmol/L BUN (9-20) mg/dL Creatinine (0.66-1.25) mg/dL Glucose (74-99) mg/dL POC Glucose (mg/dL) (70-110) mg/dL Plasma Lactic Acid Amari (0.7-2.0) mmol/L Calcium (8.4-10.2) mg/dL Troponin I 0.045 H* (0.000-0.034) ng/mL Total Protein (6.3-8.2) g/dL Albumin (3.5-5.0) g/dL Lipase (23-300) U/L Urine Protein (Negative) Urine Glucose (UA) (Negative) Urine RBC (0-5) /hpf Amorphous Sediment (None) /hpf Urine Bacteria (None) /hpf Hyaline Casts (0-2) /lpf Urine Mucus (None) /hpf Crossmatch See Detail 08/12/24 08/13/24 08/13/24 Range/Units 23:23 01:22 01:30 WBC (3.8-10.6) k/uL RBC (4.30-5.90) m/uL Hgb (13.0-17.5) gm/dL Hct (39.0-53.0) % MCV (80.0-100.0) fL MCH (25.0-35.0) pg MCHC (31.0-37.0) g/dL RDW (11.5-15.5) % Plt Count (150-450) k/uL Neutrophils # (Manual) (1.3-7.7) k/uL Lymphocytes # (Manual) (1.0-4.8) k/uL Metamyelocytes # (Man) (0) k/uL Myelocytes # (Manual) (0) k/uL PT (10.0-12.5) sec INR (<1.2) ABG pCO2 (35-45) mmHg ABG pO2 >420 H (83-108) mmHg ABG O2 Saturation >100.0 H (94-97) % Hemoglobin 7.6 L (13.0-17.5) gm/dL Potassium (3.5-5.1) mmol/L Chloride (98-107) mmol/L Carbon Dioxide (22-30) mmol/L BUN (9-20) mg/dL Creatinine (0.66-1.25) mg/dL Glucose (74-99) mg/dL POC Glucose (mg/dL) 180 H 148 H (70-110) mg/dL Plasma Lactic Acid Amari (0.7-2.0) mmol/L Calcium (8.4-10.2) mg/dL Troponin I (0.000-0.034) ng/mL Total Protein (6.3-8.2) g/dL Albumin (3.5-5.0) g/dL Lipase (23-300) U/L Urine Protein (Negative) Urine Glucose (UA) (Negative) Urine RBC (0-5) /hpf Amorphous Sediment (None) /hpf Urine Bacteria (None) /hpf Hyaline Casts (0-2) /lpf Urine Mucus (None) /hpf Crossmatch 08/13/24 08/13/24 08/13/24 Range/Units 01:34 03:15 04:28 WBC (3.8-10.6) k/uL RBC 3.20 L (4.30-5.90) m/uL Hgb 7.9 L (13.0-17.5) gm/dL Hct 25.7 L (39.0-53.0) % MCV (80.0-100.0) fL MCH 24.6 L (25.0-35.0) pg MCHC 30.6 L (31.0-37.0) g/dL RDW 20.0 H (11.5-15.5) % Plt Count (150-450) k/uL Neutrophils # (Manual) (1.3-7.7) k/uL Lymphocytes # (Manual) 0.32 L (1.0-4.8) k/uL Metamyelocytes # (Man) 0.16 H (0) k/uL Myelocytes # (Manual) (0) k/uL PT (10.0-12.5) sec INR (<1.2) ABG pCO2 (35-45) mmHg ABG pO2 (83-108) mmHg ABG O2 Saturation (94-97) % Hemoglobin (13.0-17.5) gm/dL Potassium (3.5-5.1) mmol/L Chloride (98-107) mmol/L Carbon Dioxide (22-30) mmol/L BUN (9-20) mg/dL Creatinine (0.66-1.25) mg/dL Glucose (74-99) mg/dL POC Glucose (mg/dL) (70-110) mg/dL Plasma Lactic Acid Amari 2.9 H* (0.7-2.0) mmol/L Calcium (8.4-10.2) mg/dL Troponin I (0.000-0.034) ng/mL Total Protein (6.3-8.2) g/dL Albumin (3.5-5.0) g/dL Lipase (23-300) U/L Urine Protein Trace H (Negative) Urine Glucose (UA) 1+ H (Negative) Urine RBC 7 H (0-5) /hpf Amorphous Sediment Rare H (None) /hpf Urine Bacteria Rare H (None) /hpf Hyaline Casts 39 H (0-2) /lpf Urine Mucus Occasional H (None) /hpf Crossmatch 08/13/24 08/13/24 08/13/24 Range/Units 04:33 04:33 05:49 WBC (3.8-10.6) k/uL RBC 3.34 L (4.30-5.90) m/uL Hgb 8.2 L (13.0-17.5) gm/dL Hct 26.8 L (39.0-53.0) % MCV (80.0-100.0) fL MCH 24.5 L (25.0-35.0) pg MCHC 30.5 L (31.0-37.0) g/dL RDW 19.9 H (11.5-15.5) % Plt Count (150-450) k/uL Neutrophils # (Manual) (1.3-7.7) k/uL Lymphocytes # (Manual) 0.22 L (1.0-4.8) k/uL Metamyelocytes # (Man) 0.30 H (0) k/uL Myelocytes # (Manual) 0.07 H (0) k/uL PT (10.0-12.5) sec INR (<1.2) ABG pCO2 34 L (35-45) mmHg ABG pO2 153 H (83-108) mmHg ABG O2 Saturation 99.9 H (94-97) % Hemoglobin 8.5 L (13.0-17.5) gm/dL Potassium 3.2 L (3.5-5.1) mmol/L Chloride (98-107) mmol/L Carbon Dioxide (22-30) mmol/L BUN 83 H (9-20) mg/dL Creatinine 2.31 H (0.66-1.25) mg/dL Glucose 117 H (74-99) mg/dL POC Glucose (mg/dL) (70-110) mg/dL Plasma Lactic Acid Amari (0.7-2.0) mmol/L Calcium 7.2 L (8.4-10.2) mg/dL Troponin I (0.000-0.034) ng/mL Total Protein (6.3-8.2) g/dL Albumin (3.5-5.0) g/dL Lipase (23-300) U/L Urine Protein (Negative) Urine Glucose (UA) (Negative) Urine RBC (0-5) /hpf Amorphous Sediment (None) /hpf Urine Bacteria (None) /hpf Hyaline Casts (0-2) /lpf Urine Mucus (None) /hpf Crossmatch Assessment and Plan Assessment: Perforated gastric ulcers with extensive pneumoperitoneum throughout the abdomen status post exploratory laparotomy and closure of the ulcer. Elevated lactic acid secondary to above Patient required intubation and mechanical ventilation because of above and because of his septic shock. Septic shock secondary to above, secondary to intra-abdominal infection A-fib, chronic with controlled heart rate Plan: continue with broad-spectrum antibiotics, currently on Zosyn and fluconazole Continue on on mechanical ventilation Surgery primary team following closely Pulmonary/critical care team consult Continue with extensive IV hydration Continue with pressors as needed Further recommendation based on the clinical course GI prophylaxis: Protonix DVT prophylaxis: Deferred to surgery primary team continue mechanical now Prognosis is guarded
[2024-08-13 11:32] LABS: Glucose,Whole Blood 191 mg/dL (70-110)
--- NOTE | 2024-08-13 12:03 | P.NPCON ---
History of Present Illness - Reason for Consult Consult date: 08/13/24 - Chief Complaint abdominal pain - History of Present Illness 79 yo male patient, presented to ED with severe abdominal pain, CT of the abdomen and pelvis showing extensive pneumoperitoneum throughout the abdomen due to perforated gastric ulcers versus duodenal ulcers. he emergently underwent exploratory laparotomy with closure of the gastric ulcer perforation on 08/13. he is currently intubated and sedated, history was obtained from chart review and RN as no family by bedside. He was started on fluconazole, Zosyn normal saline/Ringer lactate at 130 , he is on 2 vasopressors Levophed and vasopressin. nephrology is consulted for TY, he is making minimal Urine 10-15 ml/hr, cr. 2.5 on admission, now 2.3 Review of Systems as above Past Medical History Past Medical History: Cancer, Diabetes Mellitus, Eye Disorder, Hyperlipidemia, Hypertension Additional Past Medical History / Comment(s): Glaucoma, Stage 3 pancreatic ca History of Any Multi-Drug Resistant Organisms: None Reported Additional Past Surgical History / Comment(s): NASAL POLYPS. Past Anesthesia/Blood Transfusion Reactions: No Reported Reaction Additional Past Anesthesia/Blood Transfusion Reaction / Comment(s): DAD, POST DENTAL PROCESS (SYNCOPE) Past Psychological History: No Psychological Hx Reported Smoking Status: Never smoker Past Alcohol Use History: Rare Past Drug Use History: None Reported Medications and Allergies Home Medications Medication Instructions Recorded Confirmed Type Aspirin [Adult Low Dose Aspirin EC] 81 mg PO DAILY 01/24/19 01/25/19 History Atorvastatin [Lipitor] 20 mg PO QAM 01/24/19 01/25/19 History Furosemide [Lasix] 20 mg PO QAM 01/24/19 01/25/19 History Glimepiride [Amaryl] 4 mg PO BID 01/24/19 01/25/19 History Latanoprost/Pf [Latanoprost 0.005% 1 drops BOTH EYES HS 01/24/19 01/25/19 History Eye Drop] Metoprolol Tartrate [Lopressor] 50 g PO BID 01/24/19 01/25/19 History Potassium Chloride [K-Tab ER] 10 meq PO QAM 01/24/19 01/25/19 History Timolol 0.5% Ophth Soln [Timoptic 1 drop BOTH EYES BID 01/24/19 01/25/19 History 0.5% Ophth Soln] metFORMIN HCL [Glucophage] 1,000 mg PO BID 01/24/19 01/25/19 History Allergies Allergy/AdvReac Type Severity Reaction Status Date / Time Iodinated Contrast Media Allergy Swelling Verified 08/12/24 20:29 [Iodinated Contrast- Oral and IV Dye] Physical Exam Vitals: Vital Signs Temp Pulse Resp BP Pulse Ox FiO2 08/13/24 11:24 30 08/13/24 11:22 77 08/13/24 11:00 79 18 30 08/13/24 10:00 68 18 89/55 98 30 08/13/24 09:12 30 08/13/24 09:00 80 18 98 40 08/13/24 08:30 80 18 98 40 08/13/24 08:15 82 08/13/24 08:00 98.0 F 74 18 98/52 98 30 08/13/24 07:51 81 08/13/24 07:30 74 18 91/51 99 08/13/24 07:00 66 18 99 08/13/24 06:53 97.4 F L 75 18 100/51 08/13/24 06:45 73 18 99 08/13/24 06:30 74 18 99 08/13/24 06:15 70 18 100 08/13/24 06:00 79 18 100 08/13/24 05:45 66 18 99 08/13/24 05:41 97.1 F L 69 18 96/47 100 08/13/24 05:30 64 18 100 08/13/24 05:21 97.0 F L 76 18 102/49 100 08/13/24 05:15 66 18 90/56 100 08/13/24 05:00 69 18 100 08/13/24 04:45 71 18 100 08/13/24 04:30 68 18 100 08/13/24 04:15 70 17 95/53 99 08/13/24 04:12 40 08/13/24 04:00 98.0 F 67 18 98 40 08/13/24 03:45 61 18 77/42 100 08/13/24 03:30 61 18 100 08/13/24 03:15 71 18 77/42 100 08/13/24 03:02 62 18 100 08/13/24 01:45 64 18 100 08/13/24 01:36 40 03/09/25 01:30 97.9 F 64 18 100 08/13/24 01:26 100 08/13/24 01:18 67 14 100 08/13/24 00:59 100 08/13/24 00:22 96.9 F L 71 18 109/52 100 08/12/24 23:03 75 12 100/54 96 08/12/24 22:23 78 10 L 93/67 95 08/12/24 21:35 71 18 115/58 97 08/12/24 20:25 98.1 F 61 18 94/47 94 L Intake and Output 08/12/24 08/13/24 08/13/24 21:59 06:59 14:59 Intake Total 1154.616 Output Total 155 Balance 999.616 Intake: IV 500 Lactated Ringers 1,000 ml 500 @ 125 mls/hr IV .Q8H [facility] Rx#:[id number] Lactated Ringers 1,000 ml @ 999 mls/hr IV .Q1H1M ONE Rx#:[id number] Intake, IV Titration 654.616 Amount Fluconazole in NaCl,Iso- 100 Osm 200 mg In Saline 1 100ml.bag @ 100 mls/hr IVPB DAILY [facility] Rx#: [id number] Norepinephrine 4 mg In 330.918 Sodium Chloride 0.9% 250 ml @ 0.03 MCG/KG/MIN 11. 302 mls/hr IV .[id number] [facility] Rx#:[id number] Piperacillin-Tazobactam 3 75 .375 gm In Sodium Chloride 0.9% 100 ml @ 25 mls/hr IVPB Q8HR [facility] Rx# :[id number] Potassium Chloride 10 meq 100 In Water For Injection 1 100ml.bag @ 100 mls/hr IVPB Q1H [facility] Rx#: [id number] propofoL 1,000 mg In 48.698 Empty Bag 1 bag @ 15 MCG/ KG/MIN 8.9 mls/hr IV . [id number] [facility] Rx#:[id number] Blood Product Rc As-1 Unit [id number] Rc As-1 Unit [id number] Output: Drainage Right Anterior Urine 145 Oral Regurgitation 10 Other: Voiding Method Indwelling Catheter Weight ABP, PAP, CO, CI - Last 8 Hours Arterial Blood Pressure 114/53 Arterial Blood Pressure 99/44 Arterial Blood Pressure 94/42 Arterial Blood Pressure 89/44 Arterial Blood Pressure 94/49 Arterial Blood Pressure 96/48 Arterial Blood Pressure 102/47 Arterial Blood Pressure 101/50 Arterial Blood Pressure 107/49 Arterial Blood Pressure 95/47 Arterial Blood Pressure 101/51 Arterial Blood Pressure 98/48 Arterial Blood Pressure 96/47 Arterial Blood Pressure 106/48 Arterial Blood Pressure 98/46 Arterial Blood Pressure 108/50 Arterial Blood Pressure 103/50 Arterial Blood Pressure 103/51 Arterial Blood Pressure 105/48 Arterial Blood Pressure 67/36 GENERAL: intubated and sedated HEENT: Pupils are round and equally reacting to light. EOMI. No scleral icterus. No conjunctival pallor. Normocephalic, atraumatic. No pharyngeal erythema. No thyromegaly. CARDIOVASCULAR: S1 and S2 present. No murmurs, rubs, or gallops. PULMONARY: Chest is clear to auscultation, no wheezing , no crackles. ABDOMEN: Surgical wound with dressing in place MUSCULOSKELETAL: No joint swelling or deformity. EXTREMITIES: No cyanosis, clubbing, or pedal edema. NEUROLOGICAL: Gross neurological examination did not reveal any focal deficits. SKIN: No rashes. no petechiae. Results - Lab Results Most recent lab results ABG pH 7.43 (7.35-7.45) 08/13/24 05:49 ABG pCO2 34 mmHg (35-45) L 08/13/24 05:49 ABG pO2 153 mmHg (83-108) H 08/13/24 05:49 ABG HCO3 23 mmol/L (21-25) 08/13/24 05:49 ABG O2 Saturation 99.9 % (94-97) H 08/13/24 05:49 Calcium 7.2 mg/dL (8.4-10.2) L 08/13/24 04:33 08/13/24 09:57 08/13/24 04:33 Assessment and Plan Assessment: # oliguric acute kidney injury likely ischemic ATN, creatinine in 01/2024 1.5, presented with cr. 2.5-> 2.3 mg/dl, UA +39 hyaline casts, 7 RBC , trace proteins , CT abdomen ruled out hydronephrosis, stable calcified exophytic lesion on the right side, hypodense lesion o the left side. # perforated gastric ulcers with extensive pneumoperitoneum s/p exploratory laparotomy and closure of the ulcer 08/13 # septic shock , on 2 vasopressors # acute anemia s/p blood transfusion # acute respiratory failure, on mechanical ventilator Plan: -no urgent need to start renal replacement therapy -hypokalemia, received supplement -continue vasopressors and IVF to maintain BP MAP >65 -strict I/O -ABx per primary team -daily renal panel Guarded prognosis Thank you for consulting nephrology, we will continue to follow Time with Patient: Greater than 30
--- NOTE | 2024-08-13 12:16 | P.CNPUL ---
History of Present Illness Consult date: 08/13/24 Requesting physician: Maik Raymond Reason for consult: other (Mechanical ventilator/critical care management) Chief complaint: Abdominal pain History of present illness: This is a 79-year-old male patient with a history of diabetes mellitus, hypertension, hyperlipidemia who presented to the emergency room yesterday with a 3-hour history of sharp epigastric abdominal discomfort. His pain was a 10 out of a 10. CT scan of the abdomen revealed extensive pneumoperitoneum throughout the abdomen likely secondary to perforation of either the stomach or proximal duodenum. Emergent surgery consultation was placed. Exploratory laparotomy and was found to have a perforated gastric ulcer. He had undergone an abdominal washout and modified Kiet patch. Transferred into the intensive care unit after midnight. He is seen today in consultation in the ICU. He remains intubated on the mechanical ventilator currently in assist-control mode at a rate of 18, tidal volume 500, FiO2 40% and a PEEP of 5. Morning blood gases revealed a PaO2 of 153, pCO2 of 34 and a pH of 7.43. He is sedated on propofol 25 mcg/kg/min. Currently on norepinephrine at 31 mcg/min. Lactated Ringer's at 125 mL/h. He remains NPO. White count 17.9. Hemoglobin 9.4. Platelets 453. Sodium 137. Potassium 3.2. Bicarb 22. BUN 83. Creatinine 2.31. Glucose 117. He is currently on Zosyn and fluconazole. He did receive 2 units of packed red blood cells. Review of Systems ROS unobtainable: due to endotracheal tube Past Medical History Past Medical History: Cancer, Diabetes Mellitus, Eye Disorder, Hyperlipidemia, Hypertension Additional Past Medical History / Comment(s): Glaucoma, Stage 3 pancreatic ca History of Any Multi-Drug Resistant Organisms: None Reported Additional Past Surgical History / Comment(s): NASAL POLYPS. Past Anesthesia/Blood Transfusion Reactions: No Reported Reaction Additional Past Anesthesia/Blood Transfusion Reaction / Comment(s): DAD, POST DENTAL PROCESS (SYNCOPE) Past Psychological History: No Psychological Hx Reported Smoking Status: Never smoker Past Alcohol Use History: Rare Past Drug Use History: None Reported Medications and Allergies Home Medications Medication Instructions Recorded Confirmed Type Aspirin [Adult Low Dose Aspirin EC] 81 mg PO DAILY 01/24/19 01/25/19 History Atorvastatin [Lipitor] 20 mg PO QAM 01/24/19 01/25/19 History Furosemide [Lasix] 20 mg PO QAM 01/24/19 01/25/19 History Glimepiride [Amaryl] 4 mg PO BID 01/24/19 01/25/19 History Latanoprost/Pf [Latanoprost 0.005% 1 drops BOTH EYES HS 01/24/19 01/25/19 History Eye Drop] Metoprolol Tartrate [Lopressor] 50 g PO BID 01/24/19 01/25/19 History Potassium Chloride [K-Tab ER] 10 meq PO QAM 01/24/19 01/25/19 History Timolol 0.5% Ophth Soln [Timoptic 1 drop BOTH EYES BID 01/24/19 01/25/19 History 0.5% Ophth Soln] metFORMIN HCL [Glucophage] 1,000 mg PO BID 01/24/19 01/25/19 History Allergies Allergy/AdvReac Type Severity Reaction Status Date / Time Iodinated Contrast Media Allergy Swelling Verified 08/12/24 20:29 [Iodinated Contrast- Oral and IV Dye] Physical Exam Vitals: Vital Signs Temp Pulse Resp BP Pulse Ox FiO2 08/13/24 11:41 84 08/13/24 11:24 30 08/13/24 11:22 77 08/13/24 11:00 79 18 30 08/13/24 10:00 68 18 89/55 98 30 08/13/24 09:12 30 08/13/24 09:00 80 18 98 40 08/13/24 08:30 80 18 98 40 08/13/24 08:15 82 08/13/24 08:00 98.0 F 74 18 98/52 98 30 08/13/24 07:51 81 08/13/24 07:30 74 18 91/51 99 08/13/24 07:00 66 18 99 08/13/24 06:53 97.4 F L 75 18 100/51 08/13/24 06:45 73 18 99 08/13/24 06:30 74 18 99 08/13/24 06:15 70 18 100 08/13/24 06:00 79 18 100 08/13/24 05:45 66 18 99 08/13/24 05:41 97.1 F L 69 18 96/47 100 08/13/24 05:30 64 18 100 08/13/24 05:21 97.0 F L 76 18 102/49 100 08/13/24 05:15 66 18 90/56 100 08/13/24 05:00 69 18 100 08/13/24 04:45 71 18 100 08/13/24 04:30 68 18 100 08/13/24 04:15 70 17 95/53 99 08/13/24 04:12 40 08/13/24 04:00 98.0 F 67 18 98 40 08/13/24 03:45 61 18 77/42 100 08/13/24 03:30 61 18 100 08/13/24 03:15 71 18 77/42 100 08/13/24 03:02 62 18 100 08/13/24 01:45 64 18 100 08/13/24 01:36 40 08/13/24 01:30 97.9 F 64 18 100 08/13/24 01:26 100 08/13/24 01:18 67 14 100 08/13/24 00:59 100 08/13/24 00:22 96.9 F L 71 18 109/52 100 08/12/24 23:03 75 12 100/54 96 08/12/24 22:23 78 10 L 93/67 95 08/12/24 21:35 71 18 115/58 97 08/12/24 20:25 98.1 F 61 18 94/47 94 L Intake and Output 08/12/24 08/13/24 08/13/24 21:59 06:59 14:59 Intake Total 1154.616 Output Total 155 Balance 999.616 Intake: IV 500 Lactated Ringers 1,000 ml 500 @ 125 mls/hr IV .Q8H [facility] Rx#:[id number] Lactated Ringers 1,000 ml @ 999 mls/hr IV .Q1H1M [facility] Rx#:[id number] Intake, IV Titration 654.616 Amount Fluconazole in NaCl,Iso- 100 Osm 200 mg In Saline 1 100ml.bag @ 100 mls/hr IVPB DAILY [facility] Rx#: [id number] Norepinephrine 4 mg In 330.918 Sodium Chloride 0.9% 250 ml @ 0.03 MCG/KG/MIN 11. 302 mls/hr IV .[id number] [facility] Rx#:[id number] Piperacillin-Tazobactam 3 75 .375 gm In Sodium Chloride 0.9% 100 ml @ 25 mls/hr IVPB Q8HR [facility] Rx# :[id number] Potassium Chloride 10 meq 100 In Water For Injection 1 100ml.bag @ 100 mls/hr IVPB Q1H [facility] Rx#: [id number] propofoL 1,000 mg In 48.698 Empty Bag 1 bag @ 15 MCG/ KG/MIN 8.9 mls/hr IV . [id number] [facility] Rx#:[id number] Blood Product As-1 Unit [id number] Rc As-1 Unit [id number] Output: Drainage Right Anterior Urine 145 Oral Regurgitation 10 Other: Voiding Method Indwelling Catheter Weight ABP, PAP, CO, CI - Last 8 Hours Arterial Blood Pressure 114/53 Arterial Blood Pressure 99/44 Arterial Blood Pressure 94/42 Arterial Blood Pressure 89/44 Arterial Blood Pressure 94/49 Arterial Blood Pressure 96/48 Arterial Blood Pressure 102/47 Arterial Blood Pressure 101/50 Arterial Blood Pressure 107/49 Arterial Blood Pressure 95/47 Arterial Blood Pressure 101/51 Arterial Blood Pressure 98/48 Arterial Blood Pressure 96/47 Arterial Blood Pressure 106/48 Arterial Blood Pressure 98/46 Arterial Blood Pressure 108/50 Arterial Blood Pressure 103/50 Arterial Blood Pressure 103/51 GENERAL EXAM: Intubated, sedated 79-year-old male patient, on mechanical ventilator. HEAD: Normocephalic. EYES: Sluggish reaction of pupils, equal size. NOSE: Clear with pink turbinates. THROAT: Oral endotracheal and gastric tube secured in place. No erythema or exudates. NECK: No masses, no JVD. Right IJ triple-lumen catheter in place. CHEST: No chest wall deformity. LUNGS: Equal air entry with no crackles, wheeze, rhonchi or dullness. CVS: S1 and S2 normal with no audible murmur, irregular rhythm. ABDOMEN: Abdominal dressing dry and intact. ABDIAZIZ drain in place. No hepatospleno megaly. SPINE: No scoliosis or deformity SKIN: No rashes CENTRAL NERVOUS SYSTEM: Sedated, tone is normal in all 4 extremities. EXTREMITIES: Left radial arterial line in place. There is no peripheral edema. No clubbing, no cyanosis. Peripheral pulses are intact. Results - Laboratory Findings CBC and BMP: 08/13/24 09:57 08/13/24 04:33 ABG ABG pH 7.43 (7.35-7.45) 08/13/24 05:49 ABG pCO2 34 mmHg (35-45) L 08/13/24 05:49 ABG pO2 153 mmHg (83-108) H 08/13/24 05:49 ABG O2 Saturation 99.9 % (94-97) H 08/13/24 05:49 PT/INR, D-dimer PT 14.5 sec (10.0-12.5) H 08/12/24 20:30 INR 1.4 (<1.2) H 08/12/24 20:30 Abnormal lab findings: Abnormal Labs 08/12/24 08/12/24 08/12/24 20:30 20:30 20:30 WBC 11.0 H RBC 3.04 L Hgb 7.0 L Hct 23.7 L MCV 78.1 L MCH 23.2 L MCHC 29.6 L RDW 21.6 H Plt Count 500 H Neutrophils # (Manual) 9.79 H Lymphocytes # (Manual) 0.99 L Metamyelocytes # (Man) Myelocytes # (Manual) PT INR ABG pCO2 ABG pO2 ABG O2 Saturation ABG Lactic Acid Hemoglobin Potassium Chloride 95 L Carbon Dioxide 31 H BUN 93 H Creatinine 2.55 H Glucose 198 H POC Glucose (mg/dL) Plasma Lactic Acid Amari 2.3 H* Calcium Troponin I Total Protein 6.0 L Albumin 2.9 L Lipase 1098 H Urine Protein Urine Glucose (UA) Urine RBC Amorphous Sediment Urine Bacteria Hyaline Casts Urine Mucus Crossmatch 08/12/24 08/12/24 08/12/24 20:30 20:30 21:25 WBC RBC Hgb Hct MCV MCH MCHC RDW Plt Count Neutrophils # (Manual) Lymphocytes # (Manual) Metamyelocytes # (Man) Myelocytes # (Manual) PT 14.5 H INR 1.4 H ABG pCO2 ABG pO2 ABG O2 Saturation ABG Lactic Acid Hemoglobin Potassium Chloride Carbon Dioxide BUN Creatinine Glucose POC Glucose (mg/dL) Plasma Lactic Acid Amari Calcium Troponin I 0.045 H* Total Protein Albumin Lipase Urine Protein Urine Glucose (UA) Urine RBC Amorphous Sediment Urine Bacteria Hyaline Casts Urine Mucus Crossmatch See Detail 08/12/24 08/13/24 08/13/24 23:23 01:22 01:30 WBC RBC Hgb Hct MCV MCH MCHC RDW Plt Count Neutrophils # (Manual) Lymphocytes # (Manual) Metamyelocytes # (Man) Myelocytes # (Manual) PT INR ABG pCO2 ABG pO2 >420 H ABG O2 Saturation >100.0 H ABG Lactic Acid Hemoglobin 7.6 L Potassium Chloride Carbon Dioxide BUN Creatinine Glucose POC Glucose (mg/dL) 180 H 148 H Plasma Lactic Acid Amari Calcium Troponin I Total Protein Albumin Lipase Urine Protein Urine Glucose (UA) Urine RBC Amorphous Sediment Urine Bacteria Hyaline Casts Urine Mucus Crossmatch 08/13/24 08/13/24 08/13/24 01:34 03:15 04:28 WBC RBC 3.20 L Hgb 7.9 L Hct 25.7 L MCV MCH 24.6 L MCHC 30.6 L RDW 20.0 H Plt Count Neutrophils # (Manual) Lymphocytes # (Manual) 0.32 L Metamyelocytes # (Man) 0.16 H Myelocytes # (Manual) PT INR ABG pCO2 ABG pO2 ABG O2 Saturation ABG Lactic Acid Hemoglobin Potassium Chloride Carbon Dioxide BUN Creatinine Glucose POC Glucose (mg/dL) Plasma Lactic Acid Amari 2.9 H* Calcium Troponin I Total Protein Albumin Lipase Urine Protein Trace H Urine Glucose (UA) 1+ H Urine RBC 7 H Amorphous Sediment Rare H Urine Bacteria Rare H Hyaline Casts 39 H Urine Mucus Occasional H Crossmatch 08/13/24 08/13/24 08/13/24 04:33 04:33 05:49 WBC RBC 3.34 L Hgb 8.2 L Hct 26.8 L MCV MCH 24.5 L MCHC 30.5 L RDW 19.9 H Plt Count Neutrophils # (Manual) Lymphocytes # (Manual) 0.22 L Metamyelocytes # (Man) 0.30 H Myelocytes # (Manual) 0.07 H PT INR ABG pCO2 34 L ABG pO2 153 H ABG O2 Saturation 99.9 H ABG Lactic Acid Hemoglobin 8.5 L Potassium 3.2 L Chloride Carbon Dioxide BUN 83 H Creatinine 2.31 H Glucose 117 H POC Glucose (mg/dL) Plasma Lactic Acid Amari Calcium 7.2 L Troponin I Total Protein Albumin Lipase Urine Protein Urine Glucose (UA) Urine RBC Amorphous Sediment Urine Bacteria Hyaline Casts Urine Mucus Crossmatch 08/13/24 08/13/24 08/13/24 09:57 10:01 11:30 WBC 17.9 H RBC 3.82 L Hgb 9.4 L Hct 31.4 L MCV MCH 24.7 L MCHC 30.1 L RDW 19.8 H Plt Count 453 H Neutrophils # (Manual) Lymphocytes # (Manual) Metamyelocytes # (Man) Myelocytes # (Manual) PT INR ABG pCO2 ABG pO2 ABG O2 Saturation ABG Lactic Acid 1.8 H Hemoglobin Potassium Chloride Carbon Dioxide BUN Creatinine Glucose POC Glucose (mg/dL) 191 H Plasma Lactic Acid Amari Calcium Troponin I Total Protein Albumin Lipase Urine Protein Urine Glucose (UA) Urine RBC Amorphous Sediment Urine Bacteria Hyaline Casts Urine Mucus Crossmatch - Diagnostic Findings Chest x-ray: image reviewed Assessment and Plan Assessment: Acute abdominal pain secondary to perforated gastric ulcer with pneumoperitoneum. Status post exploratory laparotomy, abdominal washout and modified Kiet patch. Postoperative day #1 Acute sepsis with hypotension secondary to above Hypotension requiring pressor support Acute blood loss anemia, received 2 units of packed red blood cells Leukocytosis secondary to above Acute kidney injury secondary to above She will fibrillation Mechanical ventilator management, expected outcome of surgery History of hypertension Non-smoker History of prostate cancer Plan: The patient was seen and evaluated Imaging, labs and medications reviewed ABGs were reviewed Decrease the FiO2 to 30% Add DuoNeb and elations every 4 hours Continue norepinephrine Add vasopressin Continue propofol Lactated Ringer's at 125 mL/h Continue Zosyn and fluconazole Received 2 units of packed red blood cells Plan is for PICC line placement and TPN for nutritional support We will continue to follow and make further recommendations based on his clinical status I have personally seen and examined the patient, performed the documentation and the assessment and plan as written. Number of minutes spent on the visit: 20 Dictation was produced using [employer] dictation software. Please excuse any grammatical, word or spelling errors.
[2024-08-13 17:38] LABS: Glucose,Whole Blood 244 mg/dL (70-110)
[2024-08-13] MEDS ORDERED: DEXTROSE 50% SYRINGE 50 ML IVP PRN ×2 (18:39)
[2024-08-13] MEDS: INSULIN LISPRO (HumaLOG) 100 UNIT/ML 10 mL VL SQ SCH (19:00)
[2024-08-13] MEDS ORDERED: CHLORHEXIDINE GLUCONATE 15 ML CUP MUCOUS MEM SCH (21:00)
[2024-08-13] MEDS: NOREPINEPHRINE 32 MG in SODIUM CHLORIDE 0.9% 218 ML IV SCH (21:44)
[2024-08-13] MEDS: HYDROmorphone 1 MG/ML 1 ML SYRINGE IVP PRN (23:08)
[2024-08-13 23:13] LABS: Glucose,Whole Blood 203 mg/dL (70-110)
[2024-08-14 00:34] LABS: Glucose,Whole Blood 193 mg/dL (70-110)
[2024-08-14 05:19] LABS: Glucose,Whole Blood 219 mg/dL (70-110)
[2024-08-14 05:28] LABS: ABG Base Excess -4.8 mmol/L; ABG HCO3 20 mmol/L (21-25); ABG Oxygen Saturation 96.1 % (94-97); ABG PCO2 33 mmHg (35-45); ABG PH 7.38 (7.35-7.45); ABG PO2 79 mmHg (83-108); ABG TCO2 21 mmol/L (19-24); Allen Test Performed? Yes
[2024-08-14 05:51] LABS: African American GFR (CKD) 27 (>60 ml/min/1.73 sqM); Anion Gap 12 mmol/L; Blood Urea Nitrogen 71 mg/dL (9-20); Calcium 6.8 mg/dL (8.4-10.2); Carbon Dioxide 18 mmol/L (22-30); Chloride 109 mmol/L (98-107); Glucose 199 mg/dL (74-99); Non-African American GFR(CKD) 23 (>60 ml/min/1.73 sqM); Potassium 4.1 mmol/L (3.5-5.1); Sodium 139 mmol/L (137-145)
--- NOTE | 2024-08-14 06:00 | XR ---
EXAMINATION TYPE: XR chest 1V portable DATE OF EXAM: 08/14/2024 CLINICAL INDICATION: Male, 79 years old with history of Tube placement, progress study. TECHNIQUE: Single AP portable semiupright view of the chest is obtained. COMPARISON: Chest x-ray from one day earlier. FINDINGS: Stable endotracheal and orogastric tubes. Stable right internal jugular central venous cat heter. Persistent low lung volumes with mild central vascular congestion and small bilateral pleural effusio ns along with cardiomegaly. Osseous structures are intact. IMPRESSION: Findings suggest continued CHF exacerbation/fluid overload state. No significant change f rom one day earlier. Correlate clinically. [facility], , 08/14/2024 5:58 AM
[2024-08-14 06:18] LABS: Anisocytosis Slight; HCT 32.5 % (39.0-53.0); HGB 9.5 gm/dL (13.0-17.5); Hypochromasia Marked; MCH 24.3 pg (25.0-35.0); MCHC 29.1 g/dL (31.0-37.0); MCV 83.5 fL (80.0-100.0); Mean Platelet Volume 8.1; Microcytosis Slight; Platelet Count 457 k/uL (150-450); Poikilocytosis Moderate; RDW 19.8 % (11.5-15.5); WBC 26.7 k/uL (3.8-10.6)
[2024-08-14 08:51] LABS: Monocytes # (M) 1.07 k/uL (0-1.0); Nucleated Red Blood Cells 0 /100 WBC (0-0)
[2024-08-14 08:55] LABS: Band Neutrophils % 12 %; Metamyelocytes # (M) 0.27 k/uL (0); Metamyelocytes % 1 %; Neutrophils % (M) 81 %; Total Cells Counted 200
[2024-08-14 08:59] LABS: Basophilic Stippling Present; Polychromasia Present
--- NOTE | 2024-08-14 10:12 | P.PN ---
Subjective Progress Note Date: 08/14/24 On 08/14/2024, this patient is being seen for a follow-up. The patient is postop day #2. The patient was found to have a perforated gastric ulcer with pneumoperitoneum. The patient underwent expected laparotomy abdominal washout and a modified Kiet patch. The patient is postop day #2. This morning, the patient remains intubated on mechanical ventilator. The patient on propofol running at 40 mcg/kg/min. Remains on active drinking at 125 cc an hour. Remains on norepinephrine running at 0.11 mcg/kg/min and vasopressin physiologic dose. On a mechanical ventilator, assist-control mode with rate of 18, tidal volume of 500, FiO2 30% with a PEEP of 5. Blood gas with a pH of 7.38 with a pCO2 of 33 and pO2 of 79. The patient's rhythm is atrial fibrillation. The patient has a ABDIAZIZ drain output is minimal at this point, the patient is covered with a combination of Zosyn and Diflucan. The patient received a total of 2 units of packed RBC postop. Blood work from today shows a WBC count of 26, hemoglobin 9.5 and a platelet count of 457. Sodium is at 139, BUN is 18 with a creatinine of 2.5 and a BUN of 71. Serum bicarbonate of 18. The patient does have an underlying acute on top of chronic kidney disease. He is febrile with a temperature of 101.7. He remains tachycardic. Objective - Vital Signs Vital signs: Vital Signs Temp 98.7 F 08/14/24 06:00 Pulse 112 H 08/14/24 07:56 Resp 18 08/14/24 07:00 BP 108/58 08/13/24 19:00 Pulse Ox 93 L 08/14/24 07:00 FiO2 30 08/14/24 07:38 Intake & Output 08/13/24 08/14/24 08/14/24 18:59 06:59 18:59 Intake Total 3295.356 2448.295 Output Total 410 730 Balance 2885.356 1718.295 Intake: IV 1375 1625 Lactated Ringers 1,000 ml 1375 1625 @ 125 mls/hr IV .Q8H [facility] Rx#:[id number] Intake, IV Titration 1560.356 823.295 Amount Fluconazole in NaCl,Iso- 100 Osm 200 mg In Saline 1 100ml.bag @ 100 mls/hr IVPB DAILY [facility] Rx#: [id number] Norepinephrine 32 mg In 111.315 Sodium Chloride 0.9% 218 ml @ 0.03 MCG/KG/MIN 2.06 mls/hr IV .Q24H [facility] Rx#: [id number] Norepinephrine 4 mg In 1067.475 434.258 Sodium Chloride 0.9% 250 ml @ 0.03 MCG/KG/MIN 11. 302 mls/hr IV .[id number] [facility] Rx#:[id number] Piperacillin-Tazobactam 3 150 25 .375 gm In Sodium Chloride 0.9% 100 ml @ 25 mls/hr IVPB Q8HR [facility] Rx# :[id number] Potassium Chloride 10 meq 100 In Water For Injection 1 100ml.bag @ 100 mls/hr IVPB Q1H [facility] Rx#: [id number] propofoL 1,000 mg In 142.881 252.722 Empty Bag 1 bag @ 15 MCG/ KG/MIN 8.9 mls/hr IV . [id number] [facility] Rx#:[id number] Blood Product 310 Rc As-1 Unit 310 [id number] Other 50 Rc As-1 Unit 50 [id number] Output: Drainage 50 Right abdominal ABDIAZIZ drain 50 Urine 400 680 Oral Regurgitation 10 Other: Voiding Method Indwelling Catheter Indwelling Catheter ABP, PAP, CO, CI - Last Documented Arterial Blood Pressure 122/46 - Exam GENERAL EXAM: Intubated, sedated 79-year-old male patient, on mechanical ventilator. HEAD: Normocephalic. EYES: Sluggish reaction of pupils, equal size. NOSE: Clear with pink turbinates. THROAT: Oral endotracheal and gastric tube secured in place. No erythema or exudates. NECK: No masses, no JVD. Right IJ triple-lumen catheter in place. CHEST: No chest wall deformity. LUNGS: Equal air entry with no crackles, wheeze, rhonchi or dullness. CVS: S1 and S irregular consistent with atrial fibrillation with no audible murmur, irregular rhythm. ABDOMEN: Abdominal dressing dry and intact. ABDIAZIZ drain in place. No hepat osplenomegaly. SPINE: No scoliosis or deformity SKIN: No rashes CENTRAL NERVOUS SYSTEM: Sedated, tone is normal in all 4 extremities. EXTREMITIES: Left radial arterial line in place. There is no peripheral edema. No clubbing, no cyanosis. Peripheral pulses are intact. - Labs CBC & Chem 7: 08/14/24 04:40 08/14/24 04:40 Labs: Abnormal Lab Results - Last 24 Hours (Table) 08/12/24 08/13/24 08/13/24 Range/Units 21:25 09:57 09:57 WBC 17.9 H (3.8-10.6) k/uL RBC 3.82 L (4.30-5.90) m/uL Hgb 9.4 L (13.0-17.5) gm/dL Hct 31.4 L (39.0-53.0) % MCH 24.7 L (25.0-35.0) pg MCHC 30.1 L (31.0-37.0) g/dL RDW 19.8 H (11.5-15.5) % Plt Count 453 H (150-450) k/uL ABG pCO2 (35-45) mmHg ABG pO2 (83-108) mmHg ABG HCO3 (21-25) mmol/L ABG Lactic Acid (0.5-1.6) mmol/L Hemoglobin (13.0-17.5) gm/dL Chloride (98-107) mmol/L Carbon Dioxide (22-30) mmol/L BUN (9-20) mg/dL Creatinine (0.66-1.25) mg/dL Glucose (74-99) mg/dL POC Glucose (mg/dL) (70-110) mg/dL Calcium (8.4-10.2) mg/dL Cortisol 45.5 H (3.1-22.4) UG/DL Crossmatch See Detail 08/13/24 08/13/24 08/13/24 Range/Units 10:01 11:30 17:36 WBC (3.8-10.6) k/uL RBC (4.30-5.90) m/uL Hgb (13.0-17.5) gm/dL Hct (39.0-53.0) % MCH (25.0-35.0) pg MCHC (31.0-37.0) g/dL RDW (11.5-15.5) % Plt Count (150-450) k/uL ABG pCO2 (35-45) mmHg ABG pO2 (83-108) mmHg ABG HCO3 (21-25) mmol/L ABG Lactic Acid 1.8 H (0.5-1.6) mmol/L Hemoglobin (13.0-17.5) gm/dL Chloride (98-107) mmol/L Carbon Dioxide (22-30) mmol/L BUN (9-20) mg/dL Creatinine (0.66-1.25) mg/dL Glucose (74-99) mg/dL POC Glucose (mg/dL) 191 H 244 H (70-110) mg/dL Calcium (8.4-10.2) mg/dL Cortisol (3.1-22.4) UG/DL Crossmatch 08/13/24 08/14/24 08/14/24 Range/Units 23:11 00:32 04:40 WBC 26.7 H (3.8-10.6) k/uL RBC 3.90 L (4.30-5.90) m/uL Hgb 9.5 L (13.0-17.5) gm/dL Hct 32.5 L (39.0-53.0) % MCH 24.3 L (25.0-35.0) pg MCHC 29.1 L (31.0-37.0) g/dL RDW 19.8 H (11.5-15.5) % Plt Count 457 H (150-450) k/uL ABG pCO2 (35-45) mmHg ABG pO2 (83-108) mmHg ABG HCO3 (21-25) mmol/L ABG Lactic Acid (0.5-1.6) mmol/L Hemoglobin (13.0-17.5) gm/dL Chloride (98-107) mmol/L Carbon Dioxide (22-30) mmol/L BUN (9-20) mg/dL Creatinine (0.66-1.25) mg/dL Glucose (74-99) mg/dL POC Glucose (mg/dL) 203 H 193 H (70-110) mg/dL Calcium (8.4-10.2) mg/dL Cortisol (3.1-22.4) UG/DL Crossmatch 08/14/24 08/14/24 08/14/24 Range/Units 04:40 05:17 05:25 WBC (3.8-10.6) k/uL RBC (4.30-5.90) m/uL Hgb (13.0-17.5) gm/dL Hct (39.0-53.0) % MCH (25.0-35.0) pg MCHC (31.0-37.0) g/dL RDW (11.5-15.5) % Plt Count (150-450) k/uL ABG pCO2 33 L (35-45) mmHg ABG pO2 79 L (83-108) mmHg ABG HCO3 20 L (21-25) mmol/L ABG Lactic Acid (0.5-1.6) mmol/L Hemoglobin 9.5 L (13.0-17.5) gm/dL Chloride 109 H (98-107) mmol/L Carbon Dioxide 18 L (22-30) mmol/L BUN 71 H (9-20) mg/dL Creatinine 2.52 H (0.66-1.25) mg/dL Glucose 199 H (74-99) mg/dL POC Glucose (mg/dL) 219 H (70-110) mg/dL Calcium 6.8 L (8.4-10.2) mg/dL Cortisol (3.1-22.4) UG/DL Crossmatch Assessment and Plan Plan: Acute abdominal pain secondary to perforated gastric ulcer with pneumoperitoneum. Status post exploratory laparotomy, abdominal washout and modified Kiet patch. Postoperative day # 2 Acute sepsis with hypotension secondary to above, patient remains hypotensive and the patient continues to have leukocytosis. Covered with a combination of Zosyn and Diflucan. Has been adequately fluid resuscitated. Hypotension requiring pressor support, currently on norepinephrine and vasopressin Acute hypoxic respiratory failure secondary to above. This is an expected outcome of gastric perforation and sepsis. Acute blood loss anemia, received 2 units of packed red blood cells Leukocytosis secondary to above Acute kidney injury secondary to above on top of chronic kidney disease Chronic atrial fibrillation History of hypertension Non-smoker History of prostate cancer Plan: Continue vent support no changes Continue LR at the rate of 125 cc an hour Monitor renal function Monitor white cell count Monitor cultures Continue Zosyn and Diflucan Continue norepinephrine and vasopressin physiologic dose Keep the patient sedated on propofol Transfused with 2 units of packed RBCs Patient is atrial fibrillation. The patient will be seen by cardiology. Not using any anticoagulants yet. Will start the patient on IV heparin once cleared by general surgery. Obtain echocardiogram We will continue to follow and make further recommendations based on his clinical status Critical care evaluation, 32 minutes. Time with Patient: Greater than 30
[2024-08-14] MEDS: ACETAMINOPHEN IV (For NPO) 1,000 MG in EMPTY BAG 1 BAG IVPB PRN (10:19)
[2024-08-14] MEDS: SODIUM BICARB 8.4% 50 ML SYR (1 MEQ/ML) IV STA (10:20)
[2024-08-14] MEDS: PANTOPRAZOLE 40 MG/10 ML VIAL IVP SCH (10:20)
--- NOTE | 2024-08-14 10:25 | P.PN ---
Subjective Patient is seen in follow-up for acute kidney injury. Renal function fairly stable. Nonoliguric. On Levophed and vasopressin. Receiving IV fluids. Vital signs -in A-fib. On vasopressor support. General: Resting in bed. HEENT: Intubated. LUNGS: Scattered rhonchi. HEART: Irregular rate and rhythm. ABDOMEN: ABDIAZIZ drain noted. EXTREMITITES: 1+ edema. Objective - Vital Signs Vital signs: Vital Signs Temp 101.7 F H 08/14/24 09:00 Pulse 121 H 08/14/24 09:15 Resp 18 08/14/24 09:15 BP 122/70 08/14/24 09:15 Pulse Ox 93 L 08/14/24 09:15 FiO2 30 08/14/24 09:00 Intake & Output 08/13/24 08/14/24 08/14/24 18:59 06:59 18:59 Intake Total 3295.356 2448.295 298.255 Output Total 410 730 160 Balance 2885.356 1718.295 138.255 Intake: IV 1375 1625 250 Lactated Ringers 1,000 ml 1375 1625 250 @ 125 mls/hr IV .Q8H [facility] Rx#:[id number] Intake, IV Titration 1560.356 823.295 48.255 Amount Fluconazole in NaCl,Iso- 100 Osm 200 mg In Saline 1 100ml.bag @ 100 mls/hr IVPB DAILY [facility] Rx#: [id number] Norepinephrine 32 mg In 111.315 Sodium Chloride 0.9% 218 ml @ 0.03 MCG/KG/MIN 2.06 mls/hr IV .Q24H [facility] Rx#: [id number] Norepinephrine 4 mg In 1067.475 434.258 Sodium Chloride 0.9% 250 ml @ 0.03 MCG/KG/MIN 11. 302 mls/hr IV .[id number] [facility] Rx#:[id number] Piperacillin-Tazobactam 3 150 25 .375 gm In Sodium Chloride 0.9% 100 ml @ 25 mls/hr IVPB Q8HR [facility] Rx# :[id number] Potassium Chloride 10 meq 100 In Water For Injection 1 100ml.bag @ 100 mls/hr IVPB Q1H [facility] Rx#: [id number] propofoL 1,000 mg In 142.881 252.722 48.255 Empty Bag 1 bag @ 15 MCG/ KG/MIN 8.9 mls/hr IV . [id number] [facility] Rx#:[id number] Blood Product 310 Rc As-1 Unit 310 [id number] Other 50 Rc As-1 Unit 50 [id number] Output: Drainage 50 Right abdominal ABDIAZIZ drain 50 Urine 400 680 160 Oral Regurgitation 10 Other: Voiding Method Indwelling Catheter Indwelling Catheter ABP, PAP, CO, CI - Last Documented Arterial Blood Pressure 131/49 - Labs CBC & Chem 7: 08/14/24 04:40 08/14/24 04:40 Labs: Abnormal Lab Results - Last 24 Hours (Table) 08/12/24 08/13/24 08/13/24 Range/Units 21:25 09:57 10:01 WBC (3.8-10.6) k/uL RBC (4.30-5.90) m/uL Hgb (13.0-17.5) gm/dL Hct (39.0-53.0) % MCH (25.0-35.0) pg MCHC (31.0-37.0) g/dL RDW (11.5-15.5) % Plt Count (150-450) k/uL Neutrophils # (Manual) (1.3-7.7) k/uL Lymphocytes # (Manual) (1.0-4.8) k/uL Monocytes # (Manual) (0-1.0) k/uL Metamyelocytes # (Man) (0) k/uL ABG pCO2 (35-45) mmHg ABG pO2 (83-108) mmHg ABG HCO3 (21-25) mmol/L ABG Lactic Acid 1.8 H (0.5-1.6) mmol/L Hemoglobin (13.0-17.5) gm/dL Chloride (98-107) mmol/L Carbon Dioxide (22-30) mmol/L BUN (9-20) mg/dL Creatinine (0.66-1.25) mg/dL Glucose (74-99) mg/dL POC Glucose (mg/dL) (70-110) mg/dL Calcium (8.4-10.2) mg/dL Cortisol 45.5 H (3.1-22.4) UG/DL Crossmatch See Detail 08/13/24 08/13/24 08/13/24 Range/Units 11:30 17:36 23:11 WBC (3.8-10.6) k/uL RBC (4.30-5.90) m/uL Hgb (13.0-17.5) gm/dL Hct (39.0-53.0) % MCH (25.0-35.0) pg MCHC (31.0-37.0) g/dL RDW (11.5-15.5) % Plt Count (150-450) k/uL Neutrophils # (Manual) (1.3-7.7) k/uL Lymphocytes # (Manual) (1.0-4.8) k/uL Monocytes # (Manual) (0-1.0) k/uL Metamyelocytes # (Man) (0) k/uL ABG pCO2 (35-45) mmHg ABG pO2 (83-108) mmHg ABG HCO3 (21-25) mmol/L ABG Lactic Acid (0.5-1.6) mmol/L Hemoglobin (13.0-17.5) gm/dL Chloride (98-107) mmol/L Carbon Dioxide (22-30) mmol/L BUN (9-20) mg/dL Creatinine (0.66-1.25) mg/dL Glucose (74-99) mg/dL POC Glucose (mg/dL) 191 H 244 H 203 H (70-110) mg/dL Calcium (8.4-10.2) mg/dL Cortisol (3.1-22.4) UG/DL Crossmatch 08/14/24 08/14/24 08/14/24 Range/Units 00:32 04:40 04:40 WBC 26.7 H (3.8-10.6) k/uL RBC 3.90 L (4.30-5.90) m/uL Hgb 9.5 L (13.0-17.5) gm/dL Hct 32.5 L (39.0-53.0) % MCH 24.3 L (25.0-35.0) pg MCHC 29.1 L (31.0-37.0) g/dL RDW 19.8 H (11.5-15.5) % Plt Count 457 H (150-450) k/uL Neutrophils # (Manual) 24.80 H (1.3-7.7) k/uL Lymphocytes # (Manual) 0.80 L (1.0-4.8) k/uL Monocytes # (Manual) 1.07 H (0-1.0) k/uL Metamyelocytes # (Man) 0.27 H (0) k/uL ABG pCO2 (35-45) mmHg ABG pO2 (83-108) mmHg ABG HCO3 (21-25) mmol/L ABG Lactic Acid (0.5-1.6) mmol/L Hemoglobin (13.0-17.5) gm/dL Chloride 109 H (98-107) mmol/L Carbon Dioxide 18 L (22-30) mmol/L BUN 71 H (9-20) mg/dL Creatinine 2.52 H (0.66-1.25) mg/dL Glucose 199 H (74-99) mg/dL POC Glucose (mg/dL) 193 H (70-110) mg/dL Calcium 6.8 L (8.4-10.2) mg/dL Cortisol (3.1-22.4) UG/DL Crossmatch 08/14/24 08/14/24 Range/Units 05:17 05:25 WBC (3.8-10.6) k/uL RBC (4.30-5.90) m/uL Hgb (13.0-17.5) gm/dL Hct (39.0-53.0) % MCH (25.0-35.0) pg MCHC (31.0-37.0) g/dL RDW (11.5-15.5) % Plt Count (150-450) k/uL Neutrophils # (Manual) (1.3-7.7) k/uL Lymphocytes # (Manual) (1.0-4.8) k/uL Monocytes # (Manual) (0-1.0) k/uL Metamyelocytes # (Man) (0) k/uL ABG pCO2 33 L (35-45) mmHg ABG pO2 79 L (83-108) mmHg ABG HCO3 20 L (21-25) mmol/L ABG Lactic Acid (0.5-1.6) mmol/L Hemoglobin 9.5 L (13.0-17.5) gm/dL Chloride (98-107) mmol/L Carbon Dioxide (22-30) mmol/L BUN (9-20) mg/dL Creatinine (0.66-1.25) mg/dL Glucose (74-99) mg/dL POC Glucose (mg/dL) 219 H (70-110) mg/dL Calcium (8.4-10.2) mg/dL Cortisol (3.1-22.4) UG/DL Crossmatch Assessment and Plan Plan: Assessment: 1. Acute kidney injury secondary to ATN. Creatinine 1.5 in January 2024 and 2.5 this admission. Fairly stable today. Nonoliguric. No hydronephrosis noted on CT. 2. Perforated gastric ulcer with pneumoperitoneum status post ex lap with closure of ulcer August 13, 2024. 3. Septic shock on vasopressor support. 4. Metabolic acidosis secondary to acute kidney injury and lactic acidosis. 5. Diabetes mellitus. 6. A-fib with RVR. Cardizem drip being started today. Cardiology following. Plan: Maintain IV fluids. Wean FiO2 and vasopressors. 2 amp sodium bicarb IV push today. Continue to monitor renal function and urine output.
--- NOTE | 2024-08-14 11:17 | CONS ---
CONSULTATION HISTORY OF PRESENT ILLNESS: Clinton is a 79-year-old gentleman with history of diabetes, hypertension, dyslipidemia, who presented to the hospital with severe abdominal pain and had pneumoperitoneum and underwent surgery for perforated viscus. He had a perforated gastric ulcer. He developed atrial fibrillation with rapid ventricular rate, for which Cardiology has been consulted. He is hypotensive and is currently on pressors for the same. At the time of my evaluation this morning, the patient is in atrial fibrillation with a heart rate of 126 beats per minute. I am not able to obtain any information from him. I am starting him on IV intravenous Cardizem for rate control. He is not a candidate for anticoagulation at this time. We are awaiting for surgeon rosa it. PAST MEDICAL HISTORY: Significant for ozm-wrggclu-riievwpfc diabetes, paroxysmal atrial fibrillation, hypertension, dyslipidemia. MEDICATIONS AT HOME: Include: 1. Metformin 1000 b.i.d. 2. Flomax. 3. Xarelto. 4. Lopressor. 5. Lexapro. 6. Farxiga. 7. Lipitor. 8. Lanoxin. ALLERGIES: Allergic to IV dye. FAMILY HISTORY: I am unable to obtain from the patient. SOCIAL HISTORY: I am unable to obtain from the patient. REVIEW OF SYSTEMS: I am unable to obtain from the patient. PHYSICAL EXAMINATION: VITAL SIGNS: T-max is 101.7, heart rate is 120 beats per minute, blood pressure is 100/73, respiratory rate of 18, O2 saturation is 93% with mechanical ventilation. CHEST: Reveals good air entry bilaterally. HEART: Reveals first and second heart sounds. No gallop. No murmur. ABDOMEN: Soft. EXTREMITIES: Did not reveal any edema. LABORATORY DATA: Labs show a BUN of 70, creatinine of 2.5, potassium is 4.1. Hemoglobin is 9.5, platelet count is 457. ASSESSMENT AND PLAN: Persistent atrial fibrillation with rapid ventricular rate. I will start the patient on Cardizem. Obtain an echocardiogram and find out from surgeon when we can start the patient on anticoagulant. MMODL / HERBERTN: [id number] /
[2024-08-14] MEDS: DILTIAZEM DRIP BOLUS FROM BAG 1 MG SOLN IV ONE (11:57)
[2024-08-14] MEDS: DILTIAZEM 125 MG in SODIUM CHLORIDE 0.9% 100 ML IV SCH (11:57)
[2024-08-14 12:06] LABS: Glucose,Whole Blood 222 mg/dL (70-110)
[2024-08-14] MEDS: INSULIN LISPRO (HumaLOG) 100 UNIT/ML 10 mL VL SQ SCH (12:15)
[2024-08-14] MEDS: TIMOLOL 0.5% OPHTH DROPS 5 ML BTL BOTH EYES SCH (12:41)
[2024-08-14] MEDS: CALCIUM GLUCONATE IN NACL 1 GM in SALINE 1 100ML.BAG IVPB ONE (13:45)
--- NOTE | 2024-08-14 15:10 | P.PN ---
Subjective Progress Note Date: 08/14/24 This is a 79-year-old male who was monitored in the intensive care unit. He is postoperative day #2 repair of perforated gastric ulcer with Kiet patch. He remains sedated and intubated on the mechanical ventilator. Patient has been febrile with a Tmax of 101.7 axillary in the last 24 hours. He was noted to be in atrial fibrillation with RVR and has been started on IV Cardizem. Eliquis remains on hold postsurgically. Patient continues on multiple antibiotic therapy including IV fluconazole IV Zosyn with infectious disease following closely. He is currently sedated with propofol he is requiring Levophed and vasopressin support. Blood culture remains negative so far. Labs reveal a white blood cell complement 3.7, hemoglobin 9.5, sodium 139, potassium 4.1, BUN of 31 creatinine 3.52 calcium of 6.8 chest x-ray today reveals continued CHF exacerbation and fluid overload state with no significant for 1 day earlier. Patient does have hypotensive bowel sounds. To complete a review of systems as patient is currently intubated and sedated in the intensive care unit PHYSICAL EXAMINATION: GENERAL: The patient is sedated, not in any acute distress. Well developed, well nourished. Pale HEENT: Pupils are round and equally reacting to light. EOMI. No scleral icterus. No conjunctival pallor. Normocephalic, atraumatic. No pharyngeal erythema. No thyromegaly. CARDIOVASCULAR: S1 and S2 present. No murmurs, rubs, or gallops. PULMONARY: Chest is clear to auscultation, no wheezing or crackles. ABDOMEN: Soft, nontender, nondistended, Hypoactive bowel sounds. No palpable organomegaly. Mid line incision intact no surrounding erythema or drainage MUSCULOSKELETAL: No joint swelling or deformity. EXTREMITIES: No cyanosis, clubbing, or pedal edema. NEUROLOGICAL: Gross neurological examination did not reveal any focal deficits. SKIN: No rashes. Assessment and plan Perforated gastric ulcer pneumoperitoneum postoperative day #2 surgical repair with Kiet patch Septic shock secondary to above Acute kidney injury due to acute tubular necrosis from infection Atrial fibrillation with rapid ventricular rate History of fibrillation anticoagulant Eliquis Diabetes mellitus type 2 History of stage III pancreatic cancer History hypertension Hyperlipidemia VTE prophylaxis as per primary GI prophylaxis Full code Plan Patient has been started on IV cardizem Continue IV fluconazole IV Zosyn; ID following cultures Mechanical ventilator per portfolio management marketing Continue pressor support Monitor renal function The impression and plan of care has been dictated by Linda Keenan, Nurse Practitioner as directed. Dr. Cam MD I have performed a history and physical examination and medical decision making of this patient, discussed the same with the dictator, and agree with the dictators assessment and plan as written, documented as a scribe. Based on total visit time, I have performed more than 50% of this visit. Objective - Vital Signs Vital signs: Vital Signs Temp 101.4 F H 08/14/24 12:00 Pulse 102 H 08/14/24 13:00 Resp 19 08/14/24 13:00 BP 135/65 08/14/24 12:15 Pulse Ox 94 L 08/14/24 13:00 FiO2 30 08/14/24 13:00 Intake & Output 08/13/24 08/14/24 08/14/24 18:59 06:59 18:59 Intake Total 3295.356 2448.295 1347.610 Output Total 410 730 680 Balance 2885.356 1718.295 667.610 Weight 146.5 kg Intake: IV 1375 1625 1050 ACETAMINOPHEN IV (For NPO 100 ) 1,000 mg In Empty Bag 1 bag @ 400 mls/hr IVPB Q6HR PRN Rx#:[id number] Fluconazole in NaCl,Iso- 100 Osm 200 mg In Saline 1 100ml.bag @ 100 mls/hr IVPB DAILY [facility] Rx#: [id number] Lactated Ringers 1,000 ml 1375 1625 750 @ 125 mls/hr IV .Q8H [facility] Rx#:[id number] Piperacillin-Tazobactam 3 100 .375 gm In Sodium Chloride 0.9% 100 ml @ 25 mls/hr IVPB Q8HR [facility] Rx# :[id number] Intake, IV Titration 1560.356 823.295 297.610 Amount Fluconazole in NaCl,Iso- 100 Osm 200 mg In Saline 1 100ml.bag @ 100 mls/hr IVPB DAILY [facility] Rx#: [id number] Norepinephrine 32 mg In 111.315 42.348 Sodium Chloride 0.9% 218 ml @ 0.03 MCG/KG/MIN 2.06 mls/hr IV .Q24H [facility] Rx#: [id number] Norepinephrine 4 mg In 1067.475 434.258 Sodium Chloride 0.9% 250 ml @ 0.03 MCG/KG/MIN 11. 302 mls/hr IV .[id number] [facility] Rx#:[id number] Piperacillin-Tazobactam 3 150 25 .375 gm In Sodium Chloride 0.9% 100 ml @ 25 mls/hr IVPB Q8HR [facility] Rx# :[id number] Potassium Chloride 10 meq 100 In Water For Injection 1 100ml.bag @ 100 mls/hr IVPB Q1H [facility] Rx#: [id number] Vasopressin 60 unit In 121.176 Sodium Chloride 0.9% 150 ml @ 0.03 UNITS/MIN 4.59 mls/hr IV .Q24H [facility] Rx#: [id number] propofoL 1,000 mg In 142.881 252.722 134.086 Empty Bag 1 bag @ 15 MCG/ KG/MIN 8.9 mls/hr IV . [id number] [facility] Rx#:[id number] Blood Product 310 Rc As-1 Unit 310 [id number] Other 50 Rc As-1 Unit 50 [id number] Output: Gastric Drainage 250 Drainage 50 20 Right abdominal ABDIAZIZ drain 50 20 Urine 400 680 410 Oral Regurgitation 10 Other: Voiding Method Indwelling Catheter Indwelling Catheter ABP, PAP, CO, CI - Last Documented Arterial Blood Pressure 123/44 - Labs CBC & Chem 7: 08/14/24 04:40 08/14/24 04:40 Labs: Abnormal Lab Results - Last 24 Hours (Table) 08/13/24 08/13/24 08/14/24 Range/Units 17:36 23:11 00:32 WBC (3.8-10.6) k/uL RBC (4.30-5.90) m/uL Hgb (13.0-17.5) gm/dL Hct (39.0-53.0) % MCH (25.0-35.0) pg MCHC (31.0-37.0) g/dL RDW (11.5-15.5) % Plt Count (150-450) k/uL Neutrophils # (Manual) (1.3-7.7) k/uL Lymphocytes # (Manual) (1.0-4.8) k/uL Monocytes # (Manual) (0-1.0) k/uL Metamyelocytes # (Man) (0) k/uL ABG pCO2 (35-45) mmHg ABG pO2 (83-108) mmHg ABG HCO3 (21-25) mmol/L Hemoglobin (13.0-17.5) gm/dL Chloride (98-107) mmol/L Carbon Dioxide (22-30) mmol/L BUN (9-20) mg/dL Creatinine (0.66-1.25) mg/dL Glucose (74-99) mg/dL POC Glucose (mg/dL) 244 H 203 H 193 H (70-110) mg/dL Calcium (8.4-10.2) mg/dL Ionized Calcium Yohannes (4.5-5.3) mg/dL 08/14/24 08/14/24 08/14/24 Range/Units 04:40 04:40 05:17 WBC 26.7 H (3.8-10.6) k/uL RBC 3.90 L (4.30-5.90) m/uL Hgb 9.5 L (13.0-17.5) gm/dL Hct 32.5 L (39.0-53.0) % MCH 24.3 L (25.0-35.0) pg MCHC 29.1 L (31.0-37.0) g/dL RDW 19.8 H (11.5-15.5) % Plt Count 457 H (150-450) k/uL Neutrophils # (Manual) 24.80 H (1.3-7.7) k/uL Lymphocytes # (Manual) 0.80 L (1.0-4.8) k/uL Monocytes # (Manual) 1.07 H (0-1.0) k/uL Metamyelocytes # (Man) 0.27 H (0) k/uL ABG pCO2 (35-45) mmHg ABG pO2 (83-108) mmHg ABG HCO3 (21-25) mmol/L Hemoglobin (13.0-17.5) gm/dL Chloride 109 H (98-107) mmol/L Carbon Dioxide 18 L (22-30) mmol/L BUN 71 H (9-20) mg/dL Creatinine 2.52 H (0.66-1.25) mg/dL Glucose 199 H (74-99) mg/dL POC Glucose (mg/dL) 219 H (70-110) mg/dL Calcium 6.8 L (8.4-10.2) mg/dL Ionized Calcium Yohannes (4.5-5.3) mg/dL 08/14/24 08/14/24 08/14/24 Range/Units 05:25 12:05 12:13 WBC (3.8-10.6) k/uL RBC (4.30-5.90) m/uL Hgb (13.0-17.5) gm/dL Hct (39.0-53.0) % MCH (25.0-35.0) pg MCHC (31.0-37.0) g/dL RDW (11.5-15.5) % Plt Count (150-450) k/uL Neutrophils # (Manual) (1.3-7.7) k/uL Lymphocytes # (Manual) (1.0-4.8) k/uL Monocytes # (Manual) (0-1.0) k/uL Metamyelocytes # (Man) (0) k/uL ABG pCO2 33 L (35-45) mmHg ABG pO2 79 L (83-108) mmHg ABG HCO3 20 L (21-25) mmol/L Hemoglobin 9.5 L (13.0-17.5) gm/dL Chloride (98-107) mmol/L Carbon Dioxide (22-30) mmol/L BUN (9-20) mg/dL Creatinine (0.66-1.25) mg/dL Glucose (74-99) mg/dL POC Glucose (mg/dL) 222 H (70-110) mg/dL Calcium (8.4-10.2) mg/dL Ionized Calcium Yohannes 3.9 L (4.5-5.3) mg/dL Microbiology - Last 24 Hours (Table) 08/12/24 21:50 Blood Culture - Preliminary Blood Assessment and Plan Time with Patient: Less than 30
--- NOTE | 2024-08-14 16:09 | P.PN ---
Progress Note - Text Progress Note Date: 08/14/24 Patient seen and examined. He is POD #2 Exploratory Laparotomy, Modified Kiet Patch, and Abdominal Washout for Perforated Gastric Ulcer. He remains intubated and sedated. He is hypotensive requiring some levophed. Patient is having fevers per nursing staff. ABDIAZIZ is serosang VSS General-NAD Abdomen-soft, NT, minimal distention, Incision C/D/I 79 year old male s/p Modified Kiet Patch for Perforated Ulcer -ICU care regarding extubation -Monitor Hemoglobin -NPO -NGT-LIS -IV fluids -Zosyn/Diflucan -Monitor ABDIAZIZ drain -PICC line ordered for TPN Maik Raymond DO [facility] [phone]
--- NOTE | 2024-08-14 17:00 | CA ---
Transthoracic Echo Report Name: Clinton Simmons Age: 79 Gender: M : 1945 Exam Date: 08/14/2024 11:25 Exam Location: [place] [facility] Ht (in): 70 Wt (lb): 322 Ordering Physician: Alley Gu Attending/Referring Phys: [id number], Brittanie Managed Care Specialist Vicki Sanchez RDCS Procedure CPT: Indications: LVF Cardiac Hx: Technical Quality: Poor, Technically difficult study, Pt supine and on vent Contrast 1: Definity Total Dose (mL): 2 Contrast 2: Total Dose (mL): MEASUREMENTS (Male / Female) Normal Values 2D ECHO LV Diastolic Diameter PLAX 4.5 cm 4.2 - 5.9 / 3.9 - 5.3 cm LV Systolic Diameter PLAX 3.8 cm IVS Diastolic Thickness 1.3 cm 0.6 - 1.0 / 0.6 - 0.9 cm LVPW Diastolic Thickness 1.5 cm 0.6 - 1.0 / 0.6 - 0.9 cm LV Relative Wall Thickness 0.6 RV Internal Dim ED PLAX 2.1 cm LA Systolic Diameter LX 4.4 cm 3.0 - 4.0 / 2.7 - 3.8 cm M-MODE Aortic Root Diameter MM 3.6 cm LA Systolic Diameter MM 3.9 cm LA Ao Ratio MM 1.1 AV Cusp Separation MM 2.2 cm DOPPLER AV Peak Velocity 160.3 cm/s AV Peak Gradient 10.3 mmHg MV E' Velocity 7.3 cm/s TR Peak Velocity 313.8 cm/s TR Peak Gradient 39.4 mmHg Right Atrial Pressure 15.0 mmHg Pulmonary Artery Systolic Pressu 54.4 mmHg Right Ventricular Systolic Press 54.4 mmHg FINDINGS Left Ventricle Left ventricular ejection fraction is estimated at 35-40 %. Mildly increased septal wall thickness. Moderately reduced global left ventricular systolic function. Left ventricular cavity size normal. Right Ventricle Mild right ventricular dilatation. Moderate to severe pulmonary hypertension. Right Atrium Mild right atrial dilatation. Left Atrium Mildly increased left atrial diameter. Mitral Valve Structurally normal mitral valve. Mild mitral regurgitation. No mitral stenosis. Aortic Valve Trileaflet aortic valve. Diffuse thickening (sclerosis) of the aortic valve cusps without reduced excursion. No aortic regurgitation. Tricuspid Valve Structurally normal tricuspid valve. Mild tricuspid regurgitation. No tricuspid stenosis. Pulmonic Valve Structurally normal pulmonic valve. No pulmonic stenosis. Trace pulmonic regurgitation. Pericardium Echo free space anterior to the right ventricle likely represents a fat pad. Aorta Aorta at upper limits of normal. CONCLUSIONS Left ventricular ejection fraction 35-40% Mildly dilated left atrium RVSP 54 Mild tricuspid regurgitation Trace pulmonic regurgitation Previewed by: Dr. Acosta Grewal DO (Electronically Signed) Final Date: 14 August 2024 16:59
[2024-08-14 17:07] LABS: INR 1.3 (<1.2); Prothrombin Time 13.4 sec (10.0-12.5)
[2024-08-14] MEDS: HEPARIN SOD,PORK IN 0.45% NACL 25,000 UNIT in 0.45% NACL 1 250ML.BAG IV SCH (17:34)
[2024-08-14 17:56] LABS: Glucose,Whole Blood 220 mg/dL (70-110)
[2024-08-14 20:54] LABS: African American GFR (CKD) 31 (>60 ml/min/1.73 sqM); Anion Gap 11 mmol/L; Blood Urea Nitrogen 64 mg/dL (9-20); Carbon Dioxide 23 mmol/L (22-30); Chloride 107 mmol/L (98-107); Glucose 174 mg/dL (74-99); Magnesium 1.9 mg/dL (1.6-2.3); Non-African American GFR(CKD) 27 (>60 ml/min/1.73 sqM); Potassium 3.6 mmol/L (3.5-5.1); Sodium 141 mmol/L (137-145)
[2024-08-14] MEDS: POTASSIUM CHLORIDE 10 MEQ in WATER FOR INJECTION 1 100ML.BAG IVPB SCH (21:58)
[2024-08-15 00:25] LABS: Glucose,Whole Blood 196 mg/dL (70-110)
[2024-08-15 04:42] LABS: ABG Base Excess 0.8 mmol/L; ABG HCO3 25 mmol/L (21-25); ABG Oxygen Saturation 96.5 % (94-97); ABG PCO2 35 mmHg (35-45); ABG PH 7.45 (7.35-7.45); ABG PO2 75 mmHg (83-108); ABG TCO2 26 mmol/L (19-24)
[2024-08-15 05:33] LABS: Allen Test Performed? no
[2024-08-15 05:37] LABS: Anisocytosis Slight; HCT 28.7 % (39.0-53.0); HGB 8.5 gm/dL (13.0-17.5); Hypochromasia Marked; MCH 24.4 pg (25.0-35.0); MCHC 29.7 g/dL (31.0-37.0); MCV 82.1 fL (80.0-100.0); Mean Platelet Volume 7.5; Microcytosis Slight; Platelet Count 407 k/uL (150-450); Poikilocytosis Moderate; RBC 3.49 m/uL (4.30-5.90); RDW 19.8 % (11.5-15.5); WBC 27.7 k/uL (3.8-10.6)
[2024-08-15 05:44] LABS: INR 1.2 (<1.2); Prothrombin Time 12.8 sec (10.0-12.5)
[2024-08-15 06:02] LABS: African American GFR (CKD) 34 (>60 ml/min/1.73 sqM); Anion Gap 9 mmol/L; Blood Urea Nitrogen 58 mg/dL (9-20); Carbon Dioxide 23 mmol/L (22-30); Chloride 109 mmol/L (98-107); Glucose 170 mg/dL (74-99); Non-African American GFR(CKD) 29 (>60 ml/min/1.73 sqM); Potassium 3.9 mmol/L (3.5-5.1); Sodium 141 mmol/L (137-145)
[2024-08-15 06:08] LABS: Glucose,Whole Blood 184 mg/dL (70-110)
--- NOTE | 2024-08-15 06:09 | XR ---
EXAMINATION TYPE: XR chest 1V portable DATE OF EXAM: 08/15/2024 CLINICAL INDICATION: Male, 79 years old with history of Tube placement, progress study. TECHNIQUE: Single AP portable semiupright view of the chest is obtained. COMPARISON: Chest x-ray from one day earlier. FINDINGS: Stable endotracheal and orogastric tubes. Stable right internal jugular central venous cat heter. Persistent low lung volumes with mild central vascular congestion and left basilar opacity along with cardiomegaly. Osseous structures are intact. IMPRESSION: Findings suggest continued CHF exacerbation/fluid overload state. Worsening left basilar opacity could reflect acute infiltrate and/or atelectasis. Correlate clinically. [facility], , 08/15/2024 6:07 AM
[2024-08-15 06:33] LABS: Band Neutrophils % 9 %; Lymphocytes # (M) 1.66 k/uL (1.0-4.8); Metamyelocytes # (M) 0.83 k/uL (0); Metamyelocytes % 3 %; Monocytes # (M) 1.66 k/uL (0-1.0); Myelocytes # (M) 0.83 k/uL (0); Myelocytes % 3 %; Neutrophils % (M) 76 %; Nucleated Red Blood Cells 0 /100 WBC (0-0); Total Cells Counted 200
[2024-08-15 06:34] LABS: Anisocytosis (M) Present; Hypochromasia (M) Present; Mixed Population RBC Present; Ovalocytes Present; Polychromasia Present; RBC Fragments Present
[2024-08-15] MEDS: ATORVASTATIN 20 MG TAB PO SCH (08:10)
[2024-08-15] MEDS: ESCITALOPRAM 10 MG TAB PO SCH (08:11)
[2024-08-15 10:12] LABS: Magnesium 1.8 mg/dL (1.6-2.3); Phosphorus 3.9 mg/dL (2.5-4.5)
--- NOTE | 2024-08-15 10:32 | PN ---
PROGRESS NOTE SUBJECTIVE: Clinton is a 79-year-old gentleman, who is admitted to hospital with perforated bowel and underwent surgery for the same. We are involved in his care because of atrial fibrillation. He had an echocardiogram on this admission that revealed an ejection fraction of 35% to 40% with moderate pulmonary hypertension. The patient is intubated on vent. Heart rate is much better controlled on Cardizem 5 mg. I am going to cut it down to 2.5. He is on Lipitor, Levophed, and blood pressures have improved compared to where we were yesterday. The patient is currently on IV heparin. OBJECTIVE: VITAL SIGNS: Heart rate is 70 to 80 beats per minute, blood pressure is 130/50, respiratory rate is 18. He is mechanically ventilated with an O2 saturation of 94%. CHEST: Reveals bilateral occasional rhonchi and diminished air entry. HEART: Reveals first and second heart sounds. No gallop. ABDOMEN: Soft. EXTREMITIES: Reveals mild edema. LABORATORY DATA: Show a white cell count of 27, platelet count of 407, hemoglobin is 8.5. Potassium is 3.9, BUN is 58, creatinine is 2.1. ASSESSMENT: 1. Persistent atrial fibrillation with controlled ventricular rate. 2. Perforated gastric ulcer, status post surgery. PLAN: I will continue the patient on heparin and Cardizem. MMODL / IJN: [id number] /
--- NOTE | 2024-08-15 10:34 | CDI ---
Documentation Clarification Form Date: 08/15/2024 10:07:46 AM From: Kathy Mauricio RN CCDS Phone: [phone] Admit Date: 08/12/2024 10:10:00 PM Patient Name: Clinton Simmons Visit Number: [id number] Discharge Date: ATTENTION: The Clinical Documentation Specialists (CDI) and [facility] Coding Staff appreciate your assistance in clarifying documentation. Please respond to the clarification below the line at the bottom and electronically sign. The CDI & [facility] Coding staff will review the response and follow-up if needed. Please note: Queries are made part of the Legal Health Record. If you have any questions, please contact the author of this message via ITS. Doctor: Maik Raymond The patient has Acute sepsis with hypotension secondary to Acute perforated gastric ulcer with pneumoperitoneum 08/13, Pulmonary consult. Based on this information and the findings below, is there an additional diagnosis that is clinically appropriate for this patient? History/Risk Factors: 79 year old male presents to the ED for evaluation for abdominal pain, three hours prior to arrival started to experience a sharp epigastric abdominal discomfort. Medical History: Prostate cancer, DM, HLD, HTN Clinical Indicators: Labs, 08/13: WBC 11.0; Lactic acid 2.3 Blood cultures: 08/14 No growth after 24 hours Vitals signs, 08/12: B/P 94/47; HR 61; Temp 98.1F Oral; RR 18; SpO2 94% ra Medicine Consult, 08/13: Septic shock secondary to perforated gastric ulcers with extensive pneumoperitoneum throughout the abdomen, secondary to intra-abdominal infection. Treatment: 08/13 Propfol IV; 08/13 Norepinephrine Bitrartrate IV; 08/13- Lactated Ringers 125cc/hr IV; 08/13 Fluconazole IVPB Daily; 08/13 Vasopressin IV; Antibiotics: 08/12 Apicillin IVPB x 1; 08/13 Piperacillin [id number]; IV Bolus: 08/12 0.9NS 1L IV Bolus x 1; 08/13 1L Lactated Ringers IV x 1; Is there an additional diagnosis that is clinically appropriate for this patient? [ ] Sepsis, with septic shock present on admission [ ] Severe Sepsis with organ failure [ ] No additional diagnosis/not clinically significant [ ] Other, please specify [ x ] Unable to determine SIRS Criteria: 2 or more of the following may indicate SIRS Temperature < 96.8F (36C) or > 101.0F (38.3C) Heart Rate > 90 bpm Respiratory Rate > 20 breaths/min or PaCO2 < 32 mmHg White Blood Cell Count > 12,000 or < 4,000 cells/mm3 or > 10% bands (Template Last Reviewed: June 2022) MTDD
--- NOTE | 2024-08-15 11:05 | P.PN ---
Subjective Patient is seen in follow-up for acute kidney injury. Renal function improving. Nonoliguric. On Levophed. Off vasopressin. Receiving IV fluids. TPN to be started later today. On Cardizem drip for A-fib. Vital signs - On vasopressor support. General: Resting in bed. HEENT: Intubated. LUNGS: Scattered rhonchi. HEART: Regular rate and rhythm. ABDOMEN: ABDIAZIZ drain noted. EXTREMITITES: 1+ edema. Objective - Vital Signs Vital signs: Vital Signs Temp 99.6 F 08/15/24 08:00 Pulse 86 08/15/24 08:45 Resp 18 08/15/24 08:45 BP 104/51 08/15/24 08:00 Pulse Ox 94 L 08/15/24 08:45 FiO2 30 08/15/24 08:00 Intake & Output 08/14/24 08/15/24 08/15/24 18:59 06:59 18:59 Intake Total 2323.189 2139.738 545 Output Total 1145 910 160 Balance 2358.191 5738.738 385 Weight 146.5 kg 142.3 kg Intake: IV 1900 1675 525 ACETAMINOPHEN IV (For NPO 100 ) 1,000 mg In Empty Bag 1 bag @ 400 mls/hr IVPB Q6HR PRN Rx#:[id number] Fluconazole in NaCl,Iso- 100 100 Osm 200 mg In Saline 1 100ml.bag @ 100 mls/hr IVPB DAILY [facility] Rx#: [id number] Lactated Ringers 1,000 ml 1500 1375 375 @ 125 mls/hr IV .Q8H [facility] Rx#:[id number] Piperacillin-Tazobactam 3 200 50 .375 gm In Sodium Chloride 0.9% 100 ml @ 25 mls/hr IVPB Q8HR [facility] Rx# :[id number] Potassium Chloride 10 meq 300 In Water For Injection 1 100ml.bag @ 100 mls/hr IVPB Q1H [facility] Rx#: [id number] Intake, IV Titration 423.189 464.738 20 Amount Diltiazem 125 mg In 79 20 Sodium Chloride 0.9% 100 ml @ Per Protocol IV .Q0M [facility] Rx#:[id number] Norepinephrine 32 mg In 42.348 117.637 Sodium Chloride 0.9% 218 ml @ 0.03 MCG/KG/MIN 2.06 mls/hr IV .Q24H [facility] Rx#: [id number] Vasopressin 60 unit In 152.618 Sodium Chloride 0.9% 150 ml @ 0.03 UNITS/MIN 4.59 mls/hr IV .Q24H [facility] Rx#: [id number] propofoL 1,000 mg In 228.223 268.101 Empty Bag 1 bag @ 15 MCG/ KG/MIN 8.9 mls/hr IV . [id number] [facility]A Rx#:[id number] Output: Gastric Drainage 250 Drainage 40 Right abdominal ABDIAZIZ drain 40 Urine 855 910 160 Other: Voiding Method Indwelling Catheter Indwelling Catheter ABP, PAP, CO, CI - Last Documented Arterial Blood Pressure 131/51 - Labs CBC & Chem 7: 08/15/24 05:30 08/15/24 06:00 Labs: Abnormal Lab Results - Last 24 Hours (Table) 08/14/24 08/14/24 08/14/24 Range/Units 12:05 12:13 16:30 WBC (3.8-10.6) k/uL RBC (4.30-5.90) m/uL Hgb (13.0-17.5) gm/dL Hct (39.0-53.0) % MCH (25.0-35.0) pg MCHC (31.0-37.0) g/dL RDW (11.5-15.5) % Neutrophils # (Manual) (1.3-7.7) k/uL Monocytes # (Manual) (0-1.0) k/uL Metamyelocytes # (Man) (0) k/uL Myelocytes # (Manual) (0) k/uL PT 13.4 H (10.0-12.5) sec INR 1.3 H (<1.2) APTT (22.0-30.0) sec ABG pO2 (83-108) mmHg ABG Total CO2 (19-24) mmol/L Hemoglobin (13.0-17.5) gm/dL Chloride (98-107) mmol/L BUN (9-20) mg/dL Creatinine (0.66-1.25) mg/dL Glucose (74-99) mg/dL POC Glucose (mg/dL) 222 H (70-110) mg/dL Calcium (8.4-10.2) mg/dL Ionized Calcium Yohannes 3.9 L (4.5-5.3) mg/dL Albumin (3.5-5.0) g/dL 08/14/24 08/14/24 08/15/24 Range/Units 17:54 20:15 00:24 WBC (3.8-10.6) k/uL RBC (4.30-5.90) m/uL Hgb (13.0-17.5) gm/dL Hct (39.0-53.0) % MCH (25.0-35.0) pg MCHC (31.0-37.0) g/dL RDW (11.5-15.5) % Neutrophils # (Manual) (1.3-7.7) k/uL Monocytes # (Manual) (0-1.0) k/uL Metamyelocytes # (Man) (0) k/uL Myelocytes # (Manual) (0) k/uL PT (10.0-12.5) sec INR (<1.2) APTT (22.0-30.0) sec ABG pO2 (83-108) mmHg ABG Total CO2 (19-24) mmol/L Hemoglobin (13.0-17.5) gm/dL Chloride (98-107) mmol/L BUN 64 H (9-20) mg/dL Creatinine 2.27 H (0.66-1.25) mg/dL Glucose 174 H (74-99) mg/dL POC Glucose (mg/dL) 220 H 196 H (70-110) mg/dL Calcium 7.0 L (8.4-10.2) mg/dL Ionized Calcium Yohannes (4.5-5.3) mg/dL Albumin (3.5-5.0) g/dL 08/15/24 08/15/24 08/15/24 Range/Units 00:24 04:40 05:00 WBC (3.8-10.6) k/uL RBC (4.30-5.90) m/uL Hgb (13.0-17.5) gm/dL Hct (39.0-53.0) % MCH (25.0-35.0) pg MCHC (31.0-37.0) g/dL RDW (11.5-15.5) % Neutrophils # (Manual) (1.3-7.7) k/uL Monocytes # (Manual) (0-1.0) k/uL Metamyelocytes # (Man) (0) k/uL Myelocytes # (Manual) (0) k/uL PT 12.8 H (10.0-12.5) sec INR 1.2 H (<1.2) APTT 47.7 H (22.0-30.0) sec ABG pO2 75 L (83-108) mmHg ABG Total CO2 26 H (19-24) mmol/L Hemoglobin 8.4 L (13.0-17.5) gm/dL Chloride (98-107) mmol/L BUN (9-20) mg/dL Creatinine (0.66-1.25) mg/dL Glucose (74-99) mg/dL POC Glucose (mg/dL) (70-110) mg/dL Calcium (8.4-10.2) mg/dL Ionized Calcium Yohannes (4.5-5.3) mg/dL Albumin (3.5-5.0) g/dL 08/15/24 08/15/24 08/15/24 Range/Units 05:06 05:30 06:00 WBC 27.7 H (3.8-10.6) k/uL RBC 3.49 L (4.30-5.90) m/uL Hgb 8.5 L (13.0-17.5) gm/dL Hct 28.7 L (39.0-53.0) % MCH 24.4 L (25.0-35.0) pg MCHC 29.7 L (31.0-37.0) g/dL RDW 19.8 H (11.5-15.5) % Neutrophils # (Manual) 23.50 H (1.3-7.7) k/uL Monocytes # (Manual) 1.66 H (0-1.0) k/uL Metamyelocytes # (Man) 0.83 H (0) k/uL Myelocytes # (Manual) 0.83 H (0) k/uL PT (10.0-12.5) sec INR (<1.2) APTT 44.5 H (22.0-30.0) sec ABG pO2 (83-108) mmHg ABG Total CO2 (19-24) mmol/L Hemoglobin (13.0-17.5) gm/dL Chloride 109 H (98-107) mmol/L BUN 58 H (9-20) mg/dL Creatinine 2.10 H (0.66-1.25) mg/dL Glucose 170 H (74-99) mg/dL POC Glucose (mg/dL) (70-110) mg/dL Calcium 7.0 L (8.4-10.2) mg/dL Ionized Calcium Yohannes (4.5-5.3) mg/dL Albumin (3.5-5.0) g/dL 08/15/24 08/15/24 Range/Units 06:00 06:06 WBC (3.8-10.6) k/uL RBC (4.30-5.90) m/uL Hgb (13.0-17.5) gm/dL Hct (39.0-53.0) % MCH (25.0-35.0) pg MCHC (31.0-37.0) g/dL RDW (11.5-15.5) % Neutrophils # (Manual) (1.3-7.7) k/uL Monocytes # (Manual) (0-1.0) k/uL Metamyelocytes # (Man) (0) k/uL Myelocytes # (Manual) (0) k/uL PT (10.0-12.5) sec INR (<1.2) APTT (22.0-30.0) sec ABG pO2 (83-108) mmHg ABG Total CO2 (19-24) mmol/L Hemoglobin (13.0-17.5) gm/dL Chloride (98-107) mmol/L BUN (9-20) mg/dL Creatinine (0.66-1.25) mg/dL Glucose (74-99) mg/dL POC Glucose (mg/dL) 184 H (70-110) mg/dL Calcium (8.4-10.2) mg/dL Ionized Calcium Yohannes (4.5-5.3) mg/dL Albumin 2.0 L (3.5-5.0) g/dL Microbiology - Last 24 Hours (Table) 08/12/24 21:50 Blood Culture - Preliminary Blood Assessment and Plan Plan: Assessment: 1. Acute kidney injury secondary to ATN. Creatinine 1.5 in January 2024 and 2.5 this admission. Fairly stable at 2.1 today. Nonoliguric. No hydronephrosis noted on CT. 2. Perforated gastric ulcer with pneumoperitoneum status post ex lap with closure of ulcer August 13, 2024. 3. Septic shock on vasopressor support. 4. Metabolic acidosis secondary to acute kidney injury and lactic acidosis. Improved. 5. Diabetes mellitus. 6. A-fib with RVR. On Cardizem drip. Cardiology following. Plan: Maintain IV fluids. Decrease rate to 50 cc an hour. TPN pending. Wean FiO2 and vasopressors. Continue to monitor renal function and urine output. Monitor volume status closely. Will need diuresis once off vasopressors.
[2024-08-15 11:41] LABS: Glucose,Whole Blood 181 mg/dL (70-110)
[2024-08-15] MEDS: MVI, ADULT NO.4 WITH VIT K 10 ML, TRACE (CONC-1ML/DOSE) 1 ML, SODIUM ACETATE 30 MEQ, PO... IV SCH (12:55)
--- NOTE | 2024-08-15 15:12 | P.PN ---
Subjective Progress Note Date: 08/15/24 On 08/14/2024, this patient is being seen for a follow-up. The patient is postop day #2. The patient was found to have a perforated gastric ulcer with pneumoperitoneum. The patient underwent expected laparotomy abdominal washout and a modified Kiet patch. The patient is postop day #2. This morning, the patient remains intubated on mechanical ventilator. The patient on propofol running at 40 mcg/kg/min. Remains on active drinking at 125 cc an hour. Remains on norepinephrine running at 0.11 mcg/kg/min and vasopressin physiologic dose. On a mechanical ventilator, assist-control mode with rate of 18, tidal volume of 500, FiO2 30% with a PEEP of 5. Blood gas with a pH of 7.38 with a pCO2 of 33 and pO2 of 79. The patient's rhythm is atrial fibrillation. The patient has a ABDIAZIZ drain output is minimal at this point, the patient is covered with a combination of Zosyn and Diflucan. The patient received a total of 2 units of packed RBC postop. Blood work from today shows a WBC count of 26, hemoglobin 9.5 and a platelet count of 457. Sodium is at 139, BUN is 18 with a creatinine of 2.5 and a BUN of 71. Serum bicarbonate of 18. The patient does have an underlying acute on top of chronic kidney disease. He is febrile with a temperature of 101.7. He remains tachycardic. On 08/15/2024, the patient is being seen for a follow-up. This morning, the patient is still intubated on the mechanical ventilator. The patient sedated on propofol which is running at 40 mcg/kg/min. Remains on a mechanical ventilator assist-control mode at rate of 18, tidal volume of 500, FiO2 of 30% with a PEEP of 5. Blood gas from today showed a pH of 7.45 with a pCO2 of 35 and pO2 of 75. Chest x-ray from today shows ET tube in adequate location. Findings are consistent with CHF and volume overload and some worsening in the left basilar opacity/atelectasis. Hemodynamically, the patient remains in atrial fibrillation. Heart rate is under better control. The patient is on Cardizem drip that this has been weaned down to 2.5 mg an hour and the patient remains on IV heparin this was tolerated yesterday. At the same time, the patient remains on norepinephrine running at 0.1 mcg/kg/min and vasopressin physiologic dose. Lactated Ringer's running at a rate of 125 cc an hour and the patient is a positive fluid balance of 2.4 L. ABDIAZIZ output is minimal in the order of 5 to 10 cc over the past 12 hours. NG output is also minimal. Rest of the blood work showed a white cell count of 27.7, hemoglobin 8.5 and a platelet count of 407. The sodium levels at 141, BUN 58 with a creatinine of 2.1. Serum bicarb is at 23 and the chloride is 109. Glucose is 870. The blood cultures are still negat venkata.Echocardiogram showed a impaired LV function with ejection fraction of 35 to 40%. Right ventricular systolic pressure is at 54. Objective - Vital Signs Vital signs: Vital Signs Temp 99.6 F 08/15/24 08:00 Pulse 86 08/15/24 08:45 Resp 18 08/15/24 08:45 BP 104/51 08/15/24 08:00 Pulse Ox 94 L 08/15/24 08:45 FiO2 30 08/15/24 08:00 Intake & Output 08/14/24 08/15/24 08/15/24 18:59 06:59 18:59 Intake Total 2323.189 2139.738 545 Output Total 1145 910 160 Balance 1468.488 3707.738 385 Weight 146.5 kg 142.3 kg Intake: IV 1900 1675 525 ACETAMINOPHEN IV (For NPO 100 ) 1,000 mg In Empty Bag 1 bag @ 400 mls/hr IVPB Q6HR PRN Rx#:[id number] Fluconazole in NaCl,Iso- 100 100 Osm 200 mg In Saline 1 100ml.bag @ 100 mls/hr IVPB DAILY ROSA Rx#: [id number] Lactated Ringers 1,000 ml 1500 1375 375 @ 125 mls/hr IV .Q8H [facility]A Rx#:[id number] Piperacillin-Tazobactam 3 200 50 .375 gm In Sodium Chloride 0.9% 100 ml @ 25 mls/hr IVPB Q8HR [facility] Rx# :[id number] Potassium Chloride 10 meq 300 In Water For Injection 1 100ml.bag @ 100 mls/hr IVPB Q1H [facility] Rx#: [id number] Intake, IV Titration 423.189 464.738 20 Amount Diltiazem 125 mg In 79 20 Sodium Chloride 0.9% 100 ml @ Per Protocol IV .Q0M [facility]A Rx#:[id number] Norepinephrine 32 mg In 42.348 117.637 Sodium Chloride 0.9% 218 ml @ 0.03 MCG/KG/MIN 2.06 mls/hr IV .Q24H [facility] Rx#: [id number] Vasopressin 60 unit In 152.618 Sodium Chloride 0.9% 150 ml @ 0.03 UNITS/MIN 4.59 mls/hr IV .Q24H [facility]A Rx#: [id number] propofoL 1,000 mg In 228.223 268.101 Empty Bag 1 bag @ 15 MCG/ KG/MIN 8.9 mls/hr IV . [id number] [facility]A Rx#:[id number] Output: Gastric Drainage 250 Drainage 40 Right abdominal ABDIAZIZ drain 40 Urine 855 910 160 Other: Voiding Method Indwelling Catheter Indwelling Catheter ABP, PAP, CO, CI - Last Documented Arterial Blood Pressure 131/51 - Exam GENERAL EXAM: Intubated, sedated 79-year-old male patient, on mechanical ventilator. HEAD: Normocephalic. EYES: Sluggish reaction of pupils, equal size. NOSE: Clear with pink turbinates. THROAT: Oral endotracheal and gastric tube secured in place. No erythema or exudates. NECK: No masses, no JVD. Right IJ triple-lumen catheter in place. CHEST: No chest wall deformity. LUNGS: Equal air entry with no crackles, wheeze, rhonchi or dullness. CVS: S1 and S irregular consistent with atrial fibrillation with no audible murmur, irregular rhythm. ABDOMEN: Abdominal dressing dry and intact. ABDIAZIZ drain in place. No hepatosplenomegaly. SPINE: No scoliosis or deformity SKIN: No rashes CENTRAL NERVOUS SYSTEM: Sedated, tone is normal in all 4 extremities. EXTREMITIES: Left radial arterial line in place. There is no peripheral edema. No clubbing, no cyanosis. Peripheral pulses are intact. - Labs CBC & Chem 7: 08/15/24 05:30 08/15/24 06:00 Labs: Abnormal Lab Results - Last 24 Hours (Table) 08/14/24 08/14/24 08/14/24 Range/Units 12:05 12:13 16:30 WBC (3.8-10.6) k/uL RBC (4.30-5.90) m/uL Hgb (13.0-17.5) gm/dL Hct (39.0-53.0) % MCH (25.0-35.0) pg MCHC (31.0-37.0) g/dL RDW (11.5-15.5) % Neutrophils # (Manual) (1.3-7.7) k/uL Monocytes # (Manual) (0-1.0) k/uL Metamyelocytes # (Man) (0) k/uL Myelocytes # (Manual) (0) k/uL PT 13.4 H (10.0-12.5) sec INR 1.3 H (<1.2) APTT (22.0-30.0) sec ABG pO2 (83-108) mmHg ABG Total CO2 (19-24) mmol/L Hemoglobin (13.0-17.5) gm/dL Chloride (98-107) mmol/L BUN (9-20) mg/dL Creatinine (0.66-1.25) mg/dL Glucose (74-99) mg/dL POC Glucose (mg/dL) 222 H (70-110) mg/dL Calcium (8.4-10.2) mg/dL Ionized Calcium Yohannes 3.9 L (4.5-5.3) mg/dL 08/14/24 08/14/24 08/15/24 Range/Units 17:54 20:15 00:24 WBC (3.8-10.6) k/uL RBC (4.30-5.90) m/uL Hgb (13.0-17.5) gm/dL Hct (39.0-53.0) % MCH (25.0-35.0) pg MCHC (31.0-37.0) g/dL RDW (11.5-15.5) % Neutrophils # (Manual) (1.3-7.7) k/uL Monocytes # (Manual) (0-1.0) k/uL Metamyelocytes # (Man) (0) k/uL Myelocytes # (Manual) (0) k/uL PT (10.0-12.5) sec INR (<1.2) APTT (22.0-30.0) sec ABG pO2 (83-108) mmHg ABG Total CO2 (19-24) mmol/L Hemoglobin (13.0-17.5) gm/dL Chloride (98-107) mmol/L BUN 64 H (9-20) mg/dL Creatinine 2.27 H (0.66-1.25) mg/dL Glucose 174 H (74-99) mg/dL POC Glucose (mg/dL) 220 H 196 H (70-110) mg/dL Calcium 7.0 L (8.4-10.2) mg/dL Ionized Calcium Yohannes (4.5-5.3) mg/dL 08/15/24 08/15/24 08/15/24 Range/Units 00:24 04:40 05:00 WBC (3.8-10.6) k/uL RBC (4.30-5.90) m/uL Hgb (13.0-17.5) gm/dL Hct (39.0-53.0) % MCH (25.0-35.0) pg MCHC (31.0-37.0) g/dL RDW (11.5-15.5) % Neutrophils # (Manual) (1.3-7.7) k/uL Monocytes # (Manual) (0-1.0) k/uL Metamyelocytes # (Man) (0) k/uL Myelocytes # (Manual) (0) k/uL PT 12.8 H (10.0-12.5) sec INR 1.2 H (<1.2) APTT 47.7 H (22.0-30.0) sec ABG pO2 75 L (83-108) mmHg ABG Total CO2 26 H (19-24) mmol/L Hemoglobin 8.4 L (13.0-17.5) gm/dL Chloride (98-107) mmol/L BUN (9-20) mg/dL Creatinine (0.66-1.25) mg/dL Glucose (74-99) mg/dL POC Glucose (mg/dL) (70-110) mg/dL Calcium (8.4-10.2) mg/dL Ionized Calcium Yohannes (4.5-5.3) mg/dL 08/15/24 08/15/24 08/15/24 Range/Units 05:06 05:30 06:00 WBC 27.7 H (3.8-10.6) k/uL RBC 3.49 L (4.30-5.90) m/uL Hgb 8.5 L (13.0-17.5) gm/dL Hct 28.7 L (39.0-53.0) % MCH 24.4 L (25.0-35.0) pg MCHC 29.7 L (31.0-37.0) g/dL RDW 19.8 H (11.5-15.5) % Neutrophils # (Manual) 23.50 H (1.3-7.7) k/uL Monocytes # (Manual) 1.66 H (0-1.0) k/uL Metamyelocytes # (Man) 0.83 H (0) k/uL Myelocytes # (Manual) 0.83 H (0) k/uL PT (10.0-12.5) sec INR (<1.2) APTT 44.5 H (22.0-30.0) sec ABG pO2 (83-108) mmHg ABG Total CO2 (19-24) mmol/L Hemoglobin (13.0-17.5) gm/dL Chloride 109 H (98-107) mmol/L BUN 58 H (9-20) mg/dL Creatinine 2.10 H (0.66-1.25) mg/dL Glucose 170 H (74-99) mg/dL POC Glucose (mg/dL) (70-110) mg/dL Calcium 7.0 L (8.4-10.2) mg/dL Ionized Calcium Yohannes (4.5-5.3) mg/dL 08/15/24 Range/Units 06:06 WBC (3.8-10.6) k/uL RBC (4.30-5.90) m/uL Hgb (13.0-17.5) gm/dL Hct (39.0-53.0) % MCH (25.0-35.0) pg MCHC (31.0-37.0) g/dL RDW (11.5-15.5) % Neutrophils # (Manual) (1.3-7.7) k/uL Monocytes # (Manual) (0-1.0) k/uL Metamyelocytes # (Man) (0) k/uL Myelocytes # (Manual) (0) k/uL PT (10.0-12.5) sec INR (<1.2) APTT (22.0-30.0) sec ABG pO2 (83-108) mmHg ABG Total CO2 (19-24) mmol/L Hemoglobin (13.0-17.5) gm/dL Chloride (98-107) mmol/L BUN (9-20) mg/dL Creatinine (0.66-1.25) mg/dL Glucose (74-99) mg/dL POC Glucose (mg/dL) 184 H (70-110) mg/dL Calcium (8.4-10.2) mg/dL Ionized Calcium Yohannes (4.5-5.3) mg/dL Microbiology - Last 24 Hours (Table) 08/12/24 21:50 Blood Culture - Preliminary Blood Assessment and Plan Plan: Acute abdominal pain secondary to perforated gastric ulcer with pneumoperitoneum. Status post exploratory laparotomy, abdominal washout and modified Kiet patch. Postoperative day # 3 Acute sepsis with hypotension secondary to above, patient remains hypotensive and the patient continues to have leukocytosis. Covered with a combination of Zosyn and Diflucan. Has been adequately fluid resuscitated. The patient continues to be on pressors and a combination of norepinephrine and vasopressin and the patient is also on lactated Ringer at rate of 125 cc an hour Hypotension requiring pressor support, currently on norepinephrine and vasopressin Acute hypoxic respiratory failure secondary to above. This is an expected outcome of gastric perforation and sepsis. The patient remains intubated on the mechanical ventilator Systolic heart failure with ejection fraction of 35% Acute blood loss anemia, received 2 units of packed red blood cells Leukocytosis secondary to above Acute kidney injury secondary to above on top of chronic kidney disease Chronic atrial fibrillation, rate controlled on Cardizem drip at 2.5 mg an hour and the patient is also on IV heparin History of hypertension Non-smoker History of prostate cancer Plan: Continue vent support no changes Continue LR at the rate of 125 cc an hour Continue Cardizem drip at 2.5 mg an hour Continue IV heparin watch for any signs of bleeding The patient remains on pressors and the patient is on a combination of norepinephrine and vasopressin physiologic dose Monitor renal function Monitor white cell count Monitor cultures Continue Zosyn and Diflucan Keep the patient sedated on propofol, give the patient a sedation holiday TPN to be initiated for nutritional support The patient remains septic and hemodynamically unstable. Not ready for weaning at this point in time. Monitor the NG output and the output from the ABDIAZIZ drain We will continue to follow and make further recommendations based on his clinical status Critical care evaluation, 32 minutes. Time with Patient: Greater than 30
[2024-08-15 17:36] LABS: Glucose,Whole Blood 198 mg/dL (70-110)
--- NOTE | 2024-08-15 20:52 | P.PN ---
Subjective Patient seen and evaluated at bedside. resting comfortably, no reported issues. Objective - Vital Signs Vital signs: Vital Signs Temp 98.9 F 08/15/24 20:00 Pulse 70 08/15/24 20:00 Resp 18 08/15/24 20:00 BP 106/56 08/15/24 20:00 Pulse Ox 95 08/15/24 20:00 FiO2 30 08/15/24 20:00 Intake & Output 08/15/24 08/15/24 08/16/24 06:59 18:59 06:59 Intake Total 2139.738 2049.225 172.892 Output Total 910 910 170 Balance 9080.405 2995.225 2.892 Weight 142.3 kg Intake: IV 1675 1550 50 Fluconazole in NaCl,Iso- 100 Osm 200 mg In Saline 1 100ml.bag @ 100 mls/hr IVPB DAILY [facility] Rx#: [id number] Lactated Ringers 1,000 ml 1375 1250 50 @ 50 mls/hr IV .Q20H [facility] Rx#:[id number] Piperacillin-Tazobactam 3 200 .375 gm In Sodium Chloride 0.9% 100 ml @ 25 mls/hr IVPB Q8HR [facility] Rx# :[id number] Potassium Chloride 10 meq 300 In Water For Injection 1 100ml.bag @ 100 mls/hr IVPB Q1H [facility] Rx#: [id number] Intake, IV Titration 464.738 499.225 122.892 Amount Diltiazem 125 mg In 79 20 Sodium Chloride 0.9% 100 ml @ Per Protocol IV .Q0M [facility] Rx#:[id number] Heparin Sod,Pork in 0.45% 225.5 NaCl 25,000 unit In 0.45 % NaCl 1 250ml.bag @ 6. 826 UNITS/KG/HR 10 mls/hr IV .Q24H [facility] Rx#: [id number] Norepinephrine 32 mg In 117.637 63.863 32.710 Sodium Chloride 0.9% 218 ml @ 0.03 MCG/KG/MIN 2.06 mls/hr IV .Q24H [facility] Rx#: [id number] Vasopressin 60 unit In 89.862 Sodium Chloride 0.9% 150 ml @ 0.03 UNITS/MIN 4.59 mls/hr IV .Q24H [facility] Rx#: [id number] propofoL 1,000 mg In 268.101 100 90.182 Empty Bag 1 bag @ 15 MCG/ KG/MIN 8.9 mls/hr IV . [id number] [facility] Rx#:[id number] Output: Drainage 10 20 Right abdominal ABDIAZIZ drain 10 20 Urine 910 900 150 Other: Voiding Method Indwelling Catheter Indwelling Catheter Indwelling Catheter ABP, PAP, CO, CI - Last Documented Arterial Blood Pressure 110/39 - Exam gen: nad cv: rrr pul: non labored on vent abd: soft, distended, tenderness to palpation - Labs CBC & Chem 7: 08/15/24 05:30 08/15/24 06:00 Labs: Abnormal Lab Results - Last 24 Hours (Table) 08/14/24 08/15/24 08/15/24 Range/Units 20:15 00:24 00:24 WBC (3.8-10.6) k/uL RBC (4.30-5.90) m/uL Hgb (13.0-17.5) gm/dL Hct (39.0-53.0) % MCH (25.0-35.0) pg MCHC (31.0-37.0) g/dL RDW (11.5-15.5) % Neutrophils # (Manual) (1.3-7.7) k/uL Monocytes # (Manual) (0-1.0) k/uL Metamyelocytes # (Man) (0) k/uL Myelocytes # (Manual) (0) k/uL PT (10.0-12.5) sec INR (<1.2) APTT 47.7 H (22.0-30.0) sec ABG pO2 (83-108) mmHg ABG Total CO2 (19-24) mmol/L Hemoglobin (13.0-17.5) gm/dL Chloride (98-107) mmol/L BUN 64 H (9-20) mg/dL Creatinine 2.27 H (0.66-1.25) mg/dL Glucose 174 H (74-99) mg/dL POC Glucose (mg/dL) 196 H (70-110) mg/dL Calcium 7.0 L (8.4-10.2) mg/dL Albumin (3.5-5.0) g/dL 08/15/24 08/15/24 08/15/24 Range/Units 04:40 05:00 05:06 WBC (3.8-10.6) k/uL RBC (4.30-5.90) m/uL Hgb (13.0-17.5) gm/dL Hct (39.0-53.0) % MCH (25.0-35.0) pg MCHC (31.0-37.0) g/dL RDW (11.5-15.5) % Neutrophils # (Manual) (1.3-7.7) k/uL Monocytes # (Manual) (0-1.0) k/uL Metamyelocytes # (Man) (0) k/uL Myelocytes # (Manual) (0) k/uL PT 12.8 H (10.0-12.5) sec INR 1.2 H (<1.2) APTT 44.5 H (22.0-30.0) sec ABG pO2 75 L (83-108) mmHg ABG Total CO2 26 H (19-24) mmol/L Hemoglobin 8.4 L (13.0-17.5) gm/dL Chloride (98-107) mmol/L BUN (9-20) mg/dL Creatinine (0.66-1.25) mg/dL Glucose (74-99) mg/dL POC Glucose (mg/dL) (70-110) mg/dL Calcium (8.4-10.2) mg/dL Albumin (3.5-5.0) g/dL 08/15/24 08/15/24 08/15/24 Range/Units 05:30 06:00 06:00 WBC 27.7 H (3.8-10.6) k/uL RBC 3.49 L (4.30-5.90) m/uL Hgb 8.5 L (13.0-17.5) gm/dL Hct 28.7 L (39.0-53.0) % MCH 24.4 L (25.0-35.0) pg MCHC 29.7 L (31.0-37.0) g/dL RDW 19.8 H (11.5-15.5) % Neutrophils # (Manual) 23.50 H (1.3-7.7) k/uL Monocytes # (Manual) 1.66 H (0-1.0) k/uL Metamyelocytes # (Man) 0.83 H (0) k/uL Myelocytes # (Manual) 0.83 H (0) k/uL PT (10.0-12.5) sec INR (<1.2) APTT (22.0-30.0) sec ABG pO2 (83-108) mmHg ABG Total CO2 (19-24) mmol/L Hemoglobin (13.0-17.5) gm/dL Chloride 109 H (98-107) mmol/L BUN 58 H (9-20) mg/dL Creatinine 2.10 H (0.66-1.25) mg/dL Glucose 170 H (74-99) mg/dL POC Glucose (mg/dL) (70-110) mg/dL Calcium 7.0 L (8.4-10.2) mg/dL Albumin 2.0 L (3.5-5.0) g/dL 08/15/24 08/15/24 08/15/24 Range/Units 06:06 11:40 17:34 WBC (3.8-10.6) k/uL RBC (4.30-5.90) m/uL Hgb (13.0-17.5) gm/dL Hct (39.0-53.0) % MCH (25.0-35.0) pg MCHC (31.0-37.0) g/dL RDW (11.5-15.5) % Neutrophils # (Manual) (1.3-7.7) k/uL Monocytes # (Manual) (0-1.0) k/uL Metamyelocytes # (Man) (0) k/uL Myelocytes # (Manual) (0) k/uL PT (10.0-12.5) sec INR (<1.2) APTT (22.0-30.0) sec ABG pO2 (83-108) mmHg ABG Total CO2 (19-24) mmol/L Hemoglobin (13.0-17.5) gm/dL Chloride (98-107) mmol/L BUN (9-20) mg/dL Creatinine (0.66-1.25) mg/dL Glucose (74-99) mg/dL POC Glucose (mg/dL) 184 H 181 H 198 H (70-110) mg/dL Calcium (8.4-10.2) mg/dL Albumin (3.5-5.0) g/dL Microbiology - Last 24 Hours (Table) 08/12/24 21:50 Blood Culture - Preliminary Blood Assessment and Plan Assessment: 79 year old male s/p Modified Kiet Patch for Perforated Ulcer -ICU care regarding extubation -Monitor Hemoglobin -NPO -NGT-LIS -IV fluids -Zosyn/Diflucan -Monitor ABDIAZIZ drain -PICC line ordered for TPN General Surgery [facility] Román Lucero DO [id number] Time with Patient: Less than 30
[2024-08-15 23:17] LABS: Glucose,Whole Blood 231 mg/dL (70-110)
[2024-08-16 04:17] LABS: ABG Base Excess 1.5 mmol/L; ABG HCO3 25 mmol/L (21-25); ABG Oxygen Saturation 95.2 % (94-97); ABG PCO2 36 mmHg (35-45); ABG PH 7.46 (7.35-7.45); ABG PO2 71 mmHg (83-108); ABG TCO2 27 mmol/L (19-24)
[2024-08-16 04:27] LABS: Anisocytosis Slight; HCT 26.7 % (39.0-53.0); Hypochromasia Marked; MCH 24.6 pg (25.0-35.0); MCHC 29.8 g/dL (31.0-37.0); MCV 82.5 fL (80.0-100.0); Microcytosis Slight; Platelet Count 345 k/uL (150-450); Poikilocytosis Moderate; RBC 3.23 m/uL (4.30-5.90); RDW 19.7 % (11.5-15.5); WBC 20.9 k/uL (3.8-10.6)
[2024-08-16 04:36] LABS: African American GFR (CKD) 39 (>60 ml/min/1.73 sqM); Anion Gap 8 mmol/L; Blood Urea Nitrogen 49 mg/dL (9-20); Calcium 7.3 mg/dL (8.4-10.2); Carbon Dioxide 24 mmol/L (22-30); Chloride 110 mmol/L (98-107); Glucose 224 mg/dL (74-99); Non-African American GFR(CKD) 34 (>60 ml/min/1.73 sqM); Phosphorus 3.1 mg/dL (2.5-4.5); Potassium 3.4 mmol/L (3.5-5.1); Sodium 142 mmol/L (137-145)
[2024-08-16 05:10] LABS: Glucose,Whole Blood 241 mg/dL (70-110)
[2024-08-16 05:21] LABS: Allen Test Performed? no
[2024-08-16] MEDS: HEPARIN SODIUM 1,000 UN/ML (10ML VL) IV PRN (05:51)
[2024-08-16] MEDS ORDERED: POTASSIUM CHLORIDE 10 MEQ in WATER FOR INJECTION 1 100ML.BAG IVPB SCH (06:00)
--- NOTE | 2024-08-16 06:03 | XR ---
EXAMINATION TYPE: XR chest 1V portable DATE OF EXAM: 08/16/2024 CLINICAL INDICATION: Male, 79 years old with history of mechanical ventilation, progress study. Shor tness of breath TECHNIQUE: Single AP portable semiupright view of the chest is obtained. COMPARISON: Chest x-ray from one day earlier. FINDINGS: Stable endotracheal and orogastric tubes. Stable right internal jugular central venous cat heter. Persistent low lung volumes with more prominent central vascular congestion and new small to borderli ne moderate size bilateral pleural effusions. Associated bibasilar opacity favors compressive atelect asis. Osseous structures are intact. IMPRESSION: Findings suggest worsening CHF exacerbation/fluid overload state. Correlate clinically. [facility], , 08/16/2024 6:01 AM
[2024-08-16] MEDS: POTASSIUM CHLORIDE 10 MEQ in WATER FOR INJECTION 1 100ML.BAG IVPB SCH ×3 (06:34→20:29)
--- NOTE | 2024-08-16 07:03 | P.PN ---
Subjective Progress Note Date: 08/15/24 This is a 79-year-old male who was monitored in the intensive care unit. He is postoperative day #2 repair of perforated gastric ulcer with Kiet patch. He remains sedated and intubated on the mechanical ventilator. Patient has been febrile with a Tmax of 101.7 axillary in the last 24 hours. He was noted to be in atrial fibrillation with RVR and has been started on IV Cardizem. Eliquis remains on hold postsurgically. Patient continues on multiple antibiotic therapy including IV fluconazole IV Zosyn with infectious disease following closely. He is currently sedated with propofol he is requiring Levophed and vasopressin support. Blood culture remains negative so far. Labs reveal a white blood cell complement 3.7, hemoglobin 9.5, sodium 139, potassium 4.1, BUN of 31 creatinine 3.52 calcium of 6.8 chest x-ray today reveals continued CHF exacerbation and fluid overload state with no significant for 1 day earlier. Patient does have hypotensive bowel sounds. 08/15/2024 Patient is evaluated in the ICU he remains on the mechanical ventilator with PEEP of 5 and FiO2 of 30%. He is postoperative day #3 repair of perforated gastric ulcer with kiet patch. Currently sedated with propofol. Chest xray findings suggest continued CHF exacerbation fluid over load state. worsening left basilar opacity could reflect acute infiltrate and or atelectasis. Correlate clinically. White blood cell count 27.7, hgb 8.5, sodium 141, potassium 3.9, BUN 58, creatinine 2.10. Magnesium 1.8. To complete a review of systems as patient is currently intubated and sedated in the intensive care unit PHYSICAL EXAMINATION: GENERAL: The patient is sedated, not in any acute distress. Well developed, well nourished. Pale HEENT: Pupils are round and equally reacting to light. EOMI. No scleral icterus. No conjunctival pallor. Normocephalic, atraumatic. No pharyngeal erythema. No thyromegaly. CARDIOVASCULAR: S1 and S2 present. No murmurs, rubs, or gallops. PULMONARY: Chest is clear to auscultation, no wheezing or crackles. ABDOMEN: Soft, nontender, nondistended, Hypoactive bowel sounds. No palpable organomegaly. Mid line incision intact no surrounding erythema or drainage MUSCULOSKELETAL: No joint swelling or deformity. EXTREMITIES: No cyanosis, clubbing, or pedal edema. NEUROLOGICAL: Gross neurological examination did not reveal any focal deficits. SKIN: No rashes. Assessment and plan Perforated gastric ulcer pneumoperitoneum postoperative day #2 surgical repair with Kiet patch Septic shock secondary to above Acute kidney injury due to acute tubular necrosis from infection Atrial fibrillation with rapid ventricular rate History of fibrillation anticoagulant Eliquis Diabetes mellitus type 2 History of stage III pancreatic cancer History hypertension Hyperlipidemia VTE prophylaxis as per primary GI prophylaxis Full code Plan Patient has been started on IV cardizem, heart rate now controlled Patient on IV heparin Continue IV fluconazole IV Zosyn; ID following cultures Mechanical ventilator per diabetes education coordinator Continue pressor support Monitor renal function Patient to be started on TPN The impression and plan of care has been dictated by Linda Keenan, Nurse Practitioner as directed. Dr. Cam MD I have performed a history and physical examination and medical decision making of this patient, discussed the same with the dictator, and agree with the dictators assessment and plan as written, documented as a scribe. Based on total visit time, I have performed more than 50% of this visit. Objective - Vital Signs Vital signs: Vital Signs Temp 99.0 F 08/16/24 04:00 Pulse 70 08/16/24 06:00 Resp 18 08/16/24 06:00 BP 113/56 08/15/24 23:00 Pulse Ox 93 L 08/16/24 06:00 FiO2 30 08/16/24 04:00 Intake & Output 08/15/24 08/15/24 08/16/24 06:59 18:59 06:59 Intake Total 2139.738 2049.225 1080.776 Output Total 444 178 1439 Balance 0899.702 4526.225 -194.224 Weight 142.3 kg 141.5 kg Intake: IV 1675 1550 550 Fluconazole in NaCl,Iso- 100 Osm 200 mg In Saline 1 100ml.bag @ 100 mls/hr IVPB DAILY [facility] Rx#: [id number] Lactated Ringers 1,000 ml 1375 1250 550 @ 50 mls/hr IV .Q20H [facility] Rx#:[id number] Piperacillin-Tazobactam 3 200 .375 gm In Sodium Chloride 0.9% 100 ml @ 25 mls/hr IVPB Q8HR [facility] Rx# :[id number] Potassium Chloride 10 meq 300 In Water For Injection 1 100ml.bag @ 100 mls/hr IVPB Q1H [facility] Rx#: [id number] Intake, IV Titration 464.738 499.225 530.776 Amount Diltiazem 125 mg In 79 20 Sodium Chloride 0.9% 100 ml @ Per Protocol IV .Q0M [facility] Rx#:[id number] Heparin Sod,Pork in 0.45% 225.5 137.333 NaCl 25,000 unit In 0.45 % NaCl 1 250ml.bag @ 6. 826 UNITS/KG/HR 10 mls/hr IV .Q24H [facility] Rx#: [id number] Norepinephrine 32 mg In 117.637 63.863 80.576 Sodium Chloride 0.9% 218 ml @ 0.03 MCG/KG/MIN 2.06 mls/hr IV .Q24H [facility] Rx#: [id number] Vasopressin 60 unit In 89.862 Sodium Chloride 0.9% 150 ml @ 0.03 UNITS/MIN 4.59 mls/hr IV .Q24H [facility] Rx#: [id number] propofoL 1,000 mg In 268.101 100 312.867 Empty Bag 1 bag @ 15 MCG/ KG/MIN 8.9 mls/hr IV . [id number] [facility] Rx#:[id number] Output: Drainage 10 20 Right abdominal ABDIAZIZ drain 10 20 Urine 742 107 2721 Other: Voiding Method Indwelling Catheter Indwelling Catheter Indwelling Catheter ABP, PAP, CO, CI - Last Documented Arterial Blood Pressure 127/43 - Labs CBC & Chem 7: 08/16/24 04:08 08/16/24 04:08 Labs: Abnormal Lab Results - Last 24 Hours (Table) 08/15/24 08/15/24 08/15/24 Range/Units 05:06 06:00 11:40 WBC (3.8-10.6) k/uL RBC (4.30-5.90) m/uL Hgb (13.0-17.5) gm/dL Hct (39.0-53.0) % MCH (25.0-35.0) pg MCHC (31.0-37.0) g/dL RDW (11.5-15.5) % APTT 44.5 H (22.0-30.0) sec ABG pH (7.35-7.45) ABG pO2 (83-108) mmHg ABG Total CO2 (19-24) mmol/L Hemoglobin (13.0-17.5) gm/dL Potassium (3.5-5.1) mmol/L Chloride (98-107) mmol/L BUN (9-20) mg/dL Creatinine (0.66-1.25) mg/dL Glucose (74-99) mg/dL POC Glucose (mg/dL) 181 H (70-110) mg/dL Calcium (8.4-10.2) mg/dL Albumin 2.0 L (3.5-5.0) g/dL 08/15/24 08/15/24 08/16/24 Range/Units 17:34 23:16 04:08 WBC (3.8-10.6) k/uL RBC (4.30-5.90) m/uL Hgb (13.0-17.5) gm/dL Hct (39.0-53.0) % MCH (25.0-35.0) pg MCHC (31.0-37.0) g/dL RDW (11.5-15.5) % APTT (22.0-30.0) sec ABG pH (7.35-7.45) ABG pO2 (83-108) mmHg ABG Total CO2 (19-24) mmol/L Hemoglobin (13.0-17.5) gm/dL Potassium 3.4 L (3.5-5.1) mmol/L Chloride 110 H (98-107) mmol/L BUN 49 H (9-20) mg/dL Creatinine 1.87 H (0.66-1.25) mg/dL Glucose 224 H (74-99) mg/dL POC Glucose (mg/dL) 198 H 231 H (70-110) mg/dL Calcium 7.3 L (8.4-10.2) mg/dL Albumin (3.5-5.0) g/dL 08/16/24 08/16/24 08/16/24 Range/Units 04:08 04:08 04:13 WBC 20.9 H (3.8-10.6) k/uL RBC 3.23 L (4.30-5.90) m/uL Hgb 8.0 L (13.0-17.5) gm/dL Hct 26.7 L (39.0-53.0) % MCH 24.6 L (25.0-35.0) pg MCHC 29.8 L (31.0-37.0) g/dL RDW 19.7 H (11.5-15.5) % APTT 38.8 H (22.0-30.0) sec ABG pH 7.46 H (7.35-7.45) ABG pO2 71 L (83-108) mmHg ABG Total CO2 27 H (19-24) mmol/L Hemoglobin 7.8 L (13.0-17.5) gm/dL Potassium (3.5-5.1) mmol/L Chloride (98-107) mmol/L BUN (9-20) mg/dL Creatinine (0.66-1.25) mg/dL Glucose (74-99) mg/dL POC Glucose (mg/dL) (70-110) mg/dL Calcium (8.4-10.2) mg/dL Albumin (3.5-5.0) g/dL 08/16/24 Range/Units 05:09 WBC (3.8-10.6) k/uL RBC (4.30-5.90) m/uL Hgb (13.0-17.5) gm/dL Hct (39.0-53.0) % MCH (25.0-35.0) pg MCHC (31.0-37.0) g/dL RDW (11.5-15.5) % APTT (22.0-30.0) sec ABG pH (7.35-7.45) ABG pO2 (83-108) mmHg ABG Total CO2 (19-24) mmol/L Hemoglobin (13.0-17.5) gm/dL Potassium (3.5-5.1) mmol/L Chloride (98-107) mmol/L BUN (9-20) mg/dL Creatinine (0.66-1.25) mg/dL Glucose (74-99) mg/dL POC Glucose (mg/dL) 241 H (70-110) mg/dL Calcium (8.4-10.2) mg/dL Albumin (3.5-5.0) g/dL Microbiology - Last 24 Hours (Table) 08/12/24 21:50 Blood Culture - Preliminary Blood Assessment and Plan Time with Patient: Less than 30
[2024-08-16 08:39] LABS: Lymphocytes # (M) 1.46 k/uL (1.0-4.8); Monocytes # (M) 0.84 k/uL (0-1.0); Neutrophils % (M) 89 %; Nucleated Red Blood Cells 0 /100 WBC (0-0); Total Cells Counted 100
[2024-08-16] MEDS: LACTATED RINGERS 1,000 ML IV SCH (09:48)
--- NOTE | 2024-08-16 09:52 | P.PN ---
Subjective Patient is seen in follow-up for acute kidney injury. Renal function improving. Nonoliguric. On Levophed. Off vasopressin. Receiving IV fluids. Receiving TPN. On Cardizem drip for A-fib. Vital signs - On vasopressor support. General: Resting in bed. HEENT: Intubated. LUNGS: Scattered rhonchi. HEART: Regular rate and rhythm. ABDOMEN: ABDIAZIZ drain noted. EXTREMITITES: 1+ edema. Objective - Vital Signs Vital signs: Vital Signs Temp 99.6 F 08/16/24 08:00 Pulse 72 08/16/24 09:24 Resp 18 08/16/24 08:45 BP 106/52 08/16/24 08:15 Pulse Ox 93 L 08/16/24 08:45 FiO2 30 08/16/24 09:05 Intake & Output 08/15/24 08/16/24 08/16/24 18:59 06:59 18:59 Intake Total 2049.225 1080.776 569.909 Output Total 910 1275 250 Balance 1139.225 -194.224 319.909 Weight 141.5 kg Intake: IV 1550 550 150 Fluconazole in NaCl,Iso- 100 Osm 200 mg In Saline 1 100ml.bag @ 100 mls/hr IVPB DAILY [facility] Rx#: [id number] Lactated Ringers 1,000 ml 1250 550 150 @ 50 mls/hr IV .Q20H [facility] Rx#:[id number] Piperacillin-Tazobactam 3 200 .375 gm In Sodium Chloride 0.9% 100 ml @ 25 mls/hr IVPB Q8HR [facility] Rx# :[id number] Intake, IV Titration 499.225 530.776 419.909 Amount Diltiazem 125 mg In 20 Sodium Chloride 0.9% 100 ml @ Per Protocol IV .Q0M [facility] Rx#:[id number] Heparin Sod,Pork in 0.45% 225.5 137.333 NaCl 25,000 unit In 0.45 % NaCl 1 250ml.bag @ 6. 826 UNITS/KG/HR 10 mls/hr IV .Q24H [facility] Rx#: [id number] Mvi, Adult No.4 with Vit 90 K 10 ml Trace (Conc-1Ml/ Dose) 1 ml Sodium Acetate 30 meq Potassium Phosphate 15 mmol Magnesium Sulfate gm 1 gm Calcium Gluconate 1 gm In Amino Acids 5 %/ Dextrose 20 % 1,000 ml @ 30 mls/hr IV .Q24H [facility] Rx #:[id number] Norepinephrine 32 mg In 63.863 80.576 48.034 Sodium Chloride 0.9% 218 ml @ 0.03 MCG/KG/MIN 2.06 mls/hr IV .Q24H [facility] Rx#: [id number] Potassium Chloride 10 meq 200 In Water For Injection 1 100ml.bag @ 100 mls/hr IVPB Q1HR [facility] Rx#: [id number] Vasopressin 60 unit In 89.862 Sodium Chloride 0.9% 150 ml @ 0.03 UNITS/MIN 4.59 mls/hr IV .Q24H [facility] Rx#: [id number] propofoL 1,000 mg In 100 312.867 81.875 Empty Bag 1 bag @ 15 MCG/ KG/MIN 8.9 mls/hr IV . [id number] [facility] Rx#:[id number] Output: Gastric Drainage 10 Drainage 10 20 Right abdominal ABDIAZIZ drain 10 20 Urine 900 1255 240 Other: Voiding Method Indwelling Catheter Indwelling Catheter ABP, PAP, CO, CI - Last Documented Arterial Blood Pressure 138/47 - Labs CBC & Chem 7: 08/16/24 04:08 08/16/24 04:08 Labs: Abnormal Lab Results - Last 24 Hours (Table) 08/15/24 08/15/24 08/15/24 Range/Units 06:00 11:40 17:34 WBC (3.8-10.6) k/uL RBC (4.30-5.90) m/uL Hgb (13.0-17.5) gm/dL Hct (39.0-53.0) % MCH (25.0-35.0) pg MCHC (31.0-37.0) g/dL RDW (11.5-15.5) % Neutrophils # (Manual) (1.3-7.7) k/uL APTT (22.0-30.0) sec ABG pH (7.35-7.45) ABG pO2 (83-108) mmHg ABG Total CO2 (19-24) mmol/L Hemoglobin (13.0-17.5) gm/dL Potassium (3.5-5.1) mmol/L Chloride (98-107) mmol/L BUN (9-20) mg/dL Creatinine (0.66-1.25) mg/dL Glucose (74-99) mg/dL POC Glucose (mg/dL) 181 H 198 H (70-110) mg/dL Calcium (8.4-10.2) mg/dL Albumin 2.0 L (3.5-5.0) g/dL Triglycerides (0.00-149.00) mg/dL 08/15/24 08/16/24 08/16/24 Range/Units 23:16 04:08 04:08 WBC (3.8-10.6) k/uL RBC (4.30-5.90) m/uL Hgb (13.0-17.5) gm/dL Hct (39.0-53.0) % MCH (25.0-35.0) pg MCHC (31.0-37.0) g/dL RDW (11.5-15.5) % Neutrophils # (Manual) (1.3-7.7) k/uL APTT (22.0-30.0) sec ABG pH (7.35-7.45) ABG pO2 (83-108) mmHg ABG Total CO2 (19-24) mmol/L Hemoglobin (13.0-17.5) gm/dL Potassium 3.4 L (3.5-5.1) mmol/L Chloride 110 H (98-107) mmol/L BUN 49 H (9-20) mg/dL Creatinine 1.87 H (0.66-1.25) mg/dL Glucose 224 H (74-99) mg/dL POC Glucose (mg/dL) 231 H (70-110) mg/dL Calcium 7.3 L (8.4-10.2) mg/dL Albumin (3.5-5.0) g/dL Triglycerides 359.00 H (0.00-149.00) mg/dL 08/16/24 08/16/24 08/16/24 Range/Units 04:08 04:08 04:13 WBC 20.9 H (3.8-10.6) k/uL RBC 3.23 L (4.30-5.90) m/uL Hgb 8.0 L (13.0-17.5) gm/dL Hct 26.7 L (39.0-53.0) % MCH 24.6 L (25.0-35.0) pg MCHC 29.8 L (31.0-37.0) g/dL RDW 19.7 H (11.5-15.5) % Neutrophils # (Manual) 18.60 H (1.3-7.7) k/uL APTT 38.8 H (22.0-30.0) sec ABG pH 7.46 H (7.35-7.45) ABG pO2 71 L (83-108) mmHg ABG Total CO2 27 H (19-24) mmol/L Hemoglobin 7.8 L (13.0-17.5) gm/dL Potassium (3.5-5.1) mmol/L Chloride (98-107) mmol/L BUN (9-20) mg/dL Creatinine (0.66-1.25) mg/dL Glucose (74-99) mg/dL POC Glucose (mg/dL) (70-110) mg/dL Calcium (8.4-10.2) mg/dL Albumin (3.5-5.0) g/dL Triglycerides (0.00-149.00) mg/dL 08/16/24 Range/Units 05:09 WBC (3.8-10.6) k/uL RBC (4.30-5.90) m/uL Hgb (13.0-17.5) gm/dL Hct (39.0-53.0) % MCH (25.0-35.0) pg MCHC (31.0-37.0) g/dL RDW (11.5-15.5) % Neutrophils # (Manual) (1.3-7.7) k/uL APTT (22.0-30.0) sec ABG pH (7.35-7.45) ABG pO2 (83-108) mmHg ABG Total CO2 (19-24) mmol/L Hemoglobin (13.0-17.5) gm/dL Potassium (3.5-5.1) mmol/L Chloride (98-107) mmol/L BUN (9-20) mg/dL Creatinine (0.66-1.25) mg/dL Glucose (74-99) mg/dL POC Glucose (mg/dL) 241 H (70-110) mg/dL Calcium (8.4-10.2) mg/dL Albumin (3.5-5.0) g/dL Triglycerides (0.00-149.00) mg/dL Microbiology - Last 24 Hours (Table) 08/12/24 21:50 Blood Culture - Preliminary Blood Assessment and Plan Plan: Assessment: 1. Acute kidney injury secondary to ATN. Creatinine 1.5 in January 2024 and 2.5 this admission. Improved to 1.87 today. Nonoliguric. No hydronephrosis noted on CT. 2. Perforated gastric ulcer with pneumoperitoneum status post ex lap with closure of ulcer August 13, 2024. 3. Septic shock on vasopressor support. 4. Metabolic acidosis secondary to acute kidney injury and lactic acidosis. Improved. 5. Diabetes mellitus. 6. A-fib with RVR. On Cardizem drip. Cardiology following. 7. Volume overload. Plan: Hep-Lock IV fluids. Lasix 20 mg IV once today. TPN per surgery. Potassium replaced. Wean FiO2 and vasopressors. Continue to monitor renal function and urine output.
[2024-08-16] MEDS: FUROSEMIDE 10 MG/ML 2 ML VIAL IV ONE (10:07)
[2024-08-16] MEDS: INSULIN GLARGINE (LANTUS) 100 UNIT/ML SYR SQ SCH (10:07)
[2024-08-16] MEDS: METOPROLOL TARTRATE 5 MG/5 ML VIAL IVP SCH (10:27)
[2024-08-16 11:50] LABS: Glucose,Whole Blood 244 mg/dL (70-110)
[2024-08-16] MEDS ORDERED: 1: MVI, ADULT NO.4 WITH VIT K 10 ML, TRACE (CONC-1ML/DOSE) 1 ML, SODIUM ACETATE 30 MEQ, IV SCH (12:00)
--- NOTE | 2024-08-16 12:21 | PN ---
PROGRESS NOTE SUBJECTIVE: A 79-year-old gentleman, who is admitted to the hospital with a perforated viscus. We are following because of atrial fibrillation. His heart rate is well controlled, but he is having frequent ventricular ectopy and runs of nonsustained VT. I am going to stop the IV Cardizem and start him on IV Lopressor. He is also on IV heparin. PHYSICAL EXAMINATION: VITAL SIGNS: Heart rate is 77 beats per minute, blood pressure is 134/52, respiratory rate is 18, CHEST: Reveals diminished air entry at the bases. HEART: Reveals first and second heart sounds. Irregular rhythm. EXTREMITIES: Examination of the extremities reveals mild edema bilaterally. Labs show a hemoglobin of 8, platelet count is 345. Potassium is 3.4, creatinine is 1.8. ASSESSMENT: 1. Atrial fibrillation with controlled ventricular rate. 2. Frequent ventricular ectopy. 3. Status post bowel perforation. PLAN: I will start him on IV Lopressor, stop the Cardizem, continue the heparin. MMODL / IJN: [id number] /
[2024-08-16] MEDS ORDERED: Potassium Replacement Protocol 1 EACH MISC MISCELLANE PRN (12:49)
--- NOTE | 2024-08-16 14:20 | P.PN ---
Subjective Progress Note Date: 08/16/24 SURGICAL PROGRESS NOTE CHIEF COMPLAINT: Perforated gastric ulcer HISTORY OF PRESENT ILLNESS: Patient is postop day #3 status post exploratory laparotomy and modified Kiet patch for perforated gastric ulcer. Patient remains in the ICU intubated. NG tube output 300 mL. ABDIAZIZ drain 30 mL serosanguineous output. He remains on Levophed. He has TPN for nutrition support. Afebrile. White count is down from 27-20. Creatinine is down from 2.10-1.87. Cardiology following in regards to his A-fib and runs of nonsustained V. tach. They have adjusted medications. Patient is on IV heparin. Patient receiving Lasix for fluid overload. Chest x-ray had reported findings worsening of CHF. They have hep-locked fluids. PHYSICAL EXAM: VITAL SIGNS: Reviewed. GENERAL: no acute distress. ABDOMEN: Soft. Nondistended. Incisional dressing clean dry and intact NEUROLOGIC: Intubated and sedated ASSESSMENT: 1. Perforated gastric ulcer status post exploratory laparotomy and modified Kiet patch 2. Hypokalemia improved PLAN: -Recommend upper GI on postop day #5 if patient is extubated -Continue TPN for nutrition support -Continue ICU management -Continue supportive care -Continue NG tube to low intermittent suction -Keep n.p.o. -Continue antibiotics -Continue to monitor ABDIAZIZ drain -Continue IV Protonix Physician [employer] Working Supervisor note has been reviewed by physician. Signing provider agrees with the documented findings, assessment, and plan of care. Objective - Vital Signs Vital signs: Vital Signs Temp 99.9 F H 08/16/24 12:30 Pulse 96 08/16/24 13:00 Resp 19 08/16/24 13:00 BP 106/52 08/16/24 08:15 Pulse Ox 93 L 08/16/24 13:00 FiO2 30 08/16/24 13:00 Intake & Output 08/15/24 08/16/24 08/16/24 18:59 06:59 18:59 Intake Total 2049.225 4122.157 8542.118 Output Total 910 1275 1030 Balance 1139.225 -194.224 343.118 Weight 141.5 kg 141.5 kg Intake: IV 1550 550 430 Fluconazole in NaCl,Iso- 100 100 Osm 200 mg In Saline 1 100ml.bag @ 100 mls/hr IVPB DAILY [facility] Rx#: [id number] Lactated Ringers 1,000 ml 80 @ 20 mls/hr IV .Q24H [facility] Rx#:[id number] Lactated Ringers 1,000 ml 1250 550 150 @ 50 mls/hr IV .Q20H [facility] Rx#:[id number] Piperacillin-Tazobactam 3 200 100 .375 gm In Sodium Chloride 0.9% 100 ml @ 25 mls/hr IVPB Q8HR [facility] Rx# :[id number] Intake, IV Titration 499.225 530.776 943.118 Amount Diltiazem 125 mg In 20 Sodium Chloride 0.9% 100 ml @ Per Protocol IV .Q0M [facility] Rx#:[id number] Heparin Sod,Pork in 0.45% 225.5 137.333 102.363 NaCl 25,000 unit In 0.45 % NaCl 1 250ml.bag @ 6. 826 UNITS/KG/HR 10 mls/hr IV .Q24H [facility] Rx#: [id number] Mvi, Adult No.4 with Vit 120 K 10 ml Trace (Conc-1Ml/ Dose) 1 ml Sodium Acetate 30 meq Potassium Phosphate 15 mmol Magnesium Sulfate gm 1 gm Calcium Gluconate 1 gm In Amino Acids 5 %/ Dextrose 20 % 1,000 ml @ 30 mls/hr IV .Q24H [facility] Rx #:[id number] Mvi, Adult No.4 with Vit 30 K 10 ml Trace (Conc-1Ml/ Dose) 1 ml Sodium Acetate 30 meq Potassium Phosphate 15 mmol Magnesium Sulfate gm 1 gm Calcium Gluconate 1 gm In Amino Acids 5 %/ Dextrose 20 % 1,000 ml @ 65 mls/hr IV .BY DURATION [facility] Rx#:[id number] Norepinephrine 32 mg In 63.863 80.576 60.280 Sodium Chloride 0.9% 218 ml @ 0.03 MCG/KG/MIN 2.06 mls/hr IV .Q24H [facility] Rx#: [id number] Potassium Chloride 10 meq 100 In Water For Injection 1 100ml.bag @ 100 mls/hr IVPB Q1H [facility] Rx#: [id number] Potassium Chloride 10 meq 300 In Water For Injection 1 100ml.bag @ 100 mls/hr IVPB Q1HR [facility] Rx#: [id number] Sodium Acetate 30 meq 60 Potassium Phosphate 15 mmol Magnesium Sulfate gm 1 gm Calcium Gluconate 1 gm In Amino Acids 5 %/ Dextrose 20 % 1,000 ml @ 65 mls/hr IV .BY DURATION [facility] Rx#:[id number] Vasopressin 60 unit In 89.862 Sodium Chloride 0.9% 150 ml @ 0.03 UNITS/MIN 4.59 mls/hr IV .Q24H [facility] Rx#: [id number] propofoL 1,000 mg In 100 312.867 170.475 Empty Bag 1 bag @ 15 MCG/ KG/MIN 8.9 mls/hr IV . [id number] [facility] Rx#:[id number] Output: Gastric Drainage 10 Drainage 10 20 30 Right abdominal ABDIAZIZ drain 10 20 30 Urine 900 1255 990 Other: Voiding Method Indwelling Catheter Indwelling Catheter Indwelling Catheter ABP, PAP, CO, CI - Last Documented Arterial Blood Pressure 135/43 - Labs CBC & Chem 7: 08/16/24 04:08 08/16/24 17:33 Labs: Abnormal Lab Results - Last 24 Hours (Table) 08/15/24 08/15/24 08/16/24 Range/Units 17:34 23:16 04:08 WBC (3.8-10.6) k/uL RBC (4.30-5.90) m/uL Hgb (13.0-17.5) gm/dL Hct (39.0-53.0) % MCH (25.0-35.0) pg MCHC (31.0-37.0) g/dL RDW (11.5-15.5) % Neutrophils # (Manual) (1.3-7.7) k/uL APTT (22.0-30.0) sec ABG pH (7.35-7.45) ABG pO2 (83-108) mmHg ABG Total CO2 (19-24) mmol/L Hemoglobin (13.0-17.5) gm/dL Potassium 3.4 L (3.5-5.1) mmol/L Chloride 110 H (98-107) mmol/L BUN 49 H (9-20) mg/dL Creatinine 1.87 H (0.66-1.25) mg/dL Glucose 224 H (74-99) mg/dL POC Glucose (mg/dL) 198 H 231 H (70-110) mg/dL Calcium 7.3 L (8.4-10.2) mg/dL Triglycerides (0.00-149.00) mg/dL 08/16/24 08/16/24 08/16/24 Range/Units 04:08 04:08 04:08 WBC 20.9 H (3.8-10.6) k/uL RBC 3.23 L (4.30-5.90) m/uL Hgb 8.0 L (13.0-17.5) gm/dL Hct 26.7 L (39.0-53.0) % MCH 24.6 L (25.0-35.0) pg MCHC 29.8 L (31.0-37.0) g/dL RDW 19.7 H (11.5-15.5) % Neutrophils # (Manual) 18.60 H (1.3-7.7) k/uL APTT 38.8 H (22.0-30.0) sec ABG pH (7.35-7.45) ABG pO2 (83-108) mmHg ABG Total CO2 (19-24) mmol/L Hemoglobin (13.0-17.5) gm/dL Potassium (3.5-5.1) mmol/L Chloride (98-107) mmol/L BUN (9-20) mg/dL Creatinine (0.66-1.25) mg/dL Glucose (74-99) mg/dL POC Glucose (mg/dL) (70-110) mg/dL Calcium (8.4-10.2) mg/dL Triglycerides 359.00 H (0.00-149.00) mg/dL 08/16/24 08/16/24 08/16/24 Range/Units 04:13 05:09 11:48 WBC (3.8-10.6) k/uL RBC (4.30-5.90) m/uL Hgb (13.0-17.5) gm/dL Hct (39.0-53.0) % MCH (25.0-35.0) pg MCHC (31.0-37.0) g/dL RDW (11.5-15.5) % Neutrophils # (Manual) (1.3-7.7) k/uL APTT (22.0-30.0) sec ABG pH 7.46 H (7.35-7.45) ABG pO2 71 L (83-108) mmHg ABG Total CO2 27 H (19-24) mmol/L Hemoglobin 7.8 L (13.0-17.5) gm/dL Potassium (3.5-5.1) mmol/L Chloride (98-107) mmol/L BUN (9-20) mg/dL Creatinine (0.66-1.25) mg/dL Glucose (74-99) mg/dL POC Glucose (mg/dL) 241 H 244 H (70-110) mg/dL Calcium (8.4-10.2) mg/dL Triglycerides (0.00-149.00) mg/dL 08/16/24 Range/Units 12:05 WBC (3.8-10.6) k/uL RBC (4.30-5.90) m/uL Hgb (13.0-17.5) gm/dL Hct (39.0-53.0) % MCH (25.0-35.0) pg MCHC (31.0-37.0) g/dL RDW (11.5-15.5) % Neutrophils # (Manual) (1.3-7.7) k/uL APTT 52.4 H (22.0-30.0) sec ABG pH (7.35-7.45) ABG pO2 (83-108) mmHg ABG Total CO2 (19-24) mmol/L Hemoglobin (13.0-17.5) gm/dL Potassium (3.5-5.1) mmol/L Chloride (98-107) mmol/L BUN (9-20) mg/dL Creatinine (0.66-1.25) mg/dL Glucose (74-99) mg/dL POC Glucose (mg/dL) (70-110) mg/dL Calcium (8.4-10.2) mg/dL Triglycerides (0.00-149.00) mg/dL Microbiology - Last 24 Hours (Table) 08/12/24 21:50 Blood Culture - Preliminary Blood Assessment and Plan Assessment: still intubated plan for ugi on pod#5 to test/evaluate integrity of repair continue tpn Time with Patient: Less than 30
[2024-08-16] MEDS: MVI, ADULT NO.4 WITH VIT K 10 ML, TRACE (CONC-1ML/DOSE) 1 ML, SODIUM ACETATE 30 MEQ, PO... IV SCH (15:08)
--- NOTE | 2024-08-16 15:48 | P.PN ---
Subjective Progress Note Date: 08/16/24 This is a 79-year-old male who was monitored in the intensive care unit. He is postoperative day #2 repair of perforated gastric ulcer with Kiet patch. He remains sedated and intubated on the mechanical ventilator. Patient has been febrile with a Tmax of 101.7 axillary in the last 24 hours. He was noted to be in atrial fibrillation with RVR and has been started on IV Cardizem. Eliquis remains on hold postsurgically. Patient continues on multiple antibiotic therapy including IV fluconazole IV Zosyn with infectious disease following closely. He is currently sedated with propofol he is requiring Levophed and vasopressin support. Blood culture remains negative so far. Labs reveal a white blood cell complement 3.7, hemoglobin 9.5, sodium 139, potassium 4.1, BUN of 31 creatinine 3.52 calcium of 6.8 chest x-ray today reveals continued CHF exacerbation and fluid overload state with no significant for 1 day earlier. Patient does have hypotensive bowel sounds. 08/15/2024 Patient is evaluated in the ICU he remains on the mechanical ventilator with PEEP of 5 and FiO2 of 30%. He is postoperative day #3 repair of perforated gastric ulcer with kiet patch. Currently sedated with propofol. Chest xray findings suggest continued CHF exacerbation fluid over load state. worsening left basilar opacity could reflect acute infiltrate and or atelectasis. Correlate clinically. White blood cell count 27.7, hgb 8.5, sodium 141, potassium 3.9, BUN 58, creatinine 2.10. Magnesium 1.8. 08/16/2024 Patient is evaluated today in the intensive care unit he is postoperative day #4 to get with Kiet patch. Patient remains sedated with propofol. He is currently intubated and on mechanical ventilator with a PEEP of 5 and FiO2 of 30%. Chest x-ray today reveals worsening CHF. His white blood cell count today is 20.9, hemoglobin 8, BUN of 49 creatinine of 1.87. Patient remains on room. He was having runs of V. tach and was taken off IV Cardizem started on an oral metoprolol on an outpatient basis. his heart rate is controlled. He continues on IV Zosyn. He remains on IV fluconazole. Blood sugars are elevated after the start of TPN. He was started on a small dose of Lantus and we will continue to monitor and make adjustments as needed. To complete a review of systems as patient is currently intubated and sedated in the intensive care unit PHYSICAL EXAMINATION: GENERAL: The patient is sedated, not in any acute distress. Well developed, well nourished. Pale HEENT: Pupils are round and equally reacting to light. EOMI. No scleral icterus. No conjunctival pallor. Normocephalic, atraumatic. No pharyngeal erythema. No thyromegaly. CARDIOVASCULAR: S1 and S2 present. No murmurs, rubs, or gallops. PULMONARY: Chest is clear to auscultation, no wheezing or crackles. ABDOMEN: Soft, nontender, nondistended, Hypoactive bowel sounds. No palpable organomegaly. Mid line incision intact no surrounding erythema or drainage MUSCULOSKELETAL: No joint swelling or deformity. EXTREMITIES: No cyanosis, clubbing, or pedal edema. NEUROLOGICAL: Gross neurological examination did not reveal any focal deficits. SKIN: No rashes. Assessment and plan Perforated gastric ulcer pneumoperitoneum postoperative day #4 surgical repair with Kiet patch Septic shock secondary to above Acute kidney injury due to acute tubular necrosis from infection Atrial fibrillation with rapid ventricular rate History of fibrillation anticoagulant Eliquis Diabetes mellitus type 2 History of stage III pancreatic cancer History hypertension Hyperlipidemia VTE prophylaxis as per primary GI prophylaxis Xarelto remains on hold and patient continues on IV heparin Full code Plan Due to runs of V. tach Cardizem has been discontinued patient is been started on IV push Lopressor Cardiology following Patient on IV heparin Continue IV fluconazole IV Zosyn; ID following cultures Mechanical ventilator per strip cutter Continue pressor support Patient remains n.p.o. and unable to take his oral home medications at this time Patient to be started on TPN blood sugars are elevated patient was started on Lantus 10 units daily and will continue to monitor blood glucose remains elevated will increase Lantus continues on Accu-Cheks every 6 hours sliding scale insulin. Monitor electrolytes and renal function. The impression and plan of care has been dictated by Linda Keenan Nurse Practitioner as directed. Dr. Cam MD I have performed a history and physical examination and medical decision making of this patient, discussed the same with the dictator, and agree with the dictators assessment and plan as written, documented as a scribe. Based on total visit time, I have performed more than 50% of this visit. Objective - Vital Signs Vital signs: Vital Signs Temp 99.6 F 08/16/24 08:00 Pulse 72 08/16/24 09:24 Resp 18 08/16/24 08:45 BP 106/52 08/16/24 08:15 Pulse Ox 93 L 08/16/24 08:45 FiO2 30 08/16/24 09:05 Intake & Output 08/15/24 08/16/24 08/16/24 18:59 06:59 18:59 Intake Total 2049.225 1080.776 569.909 Output Total 910 1275 250 Balance 1139.225 -194.224 319.909 Weight 141.5 kg Intake: IV 1550 550 150 Fluconazole in NaCl,Iso- 100 Osm 200 mg In Saline 1 100ml.bag @ 100 mls/hr IVPB DAILY [facility] Rx#: [id number] Lactated Ringers 1,000 ml 1250 550 150 @ 50 mls/hr IV .Q20H [facility] Rx#:[id number] Piperacillin-Tazobactam 3 200 .375 gm In Sodium Chloride 0.9% 100 ml @ 25 mls/hr IVPB Q8HR [facility] Rx# :[id number] Intake, IV Titration 499.225 530.776 419.909 Amount Diltiazem 125 mg In 20 Sodium Chloride 0.9% 100 ml @ Per Protocol IV .Q0M [facility] Rx#:[id number] Heparin Sod,Pork in 0.45% 225.5 137.333 NaCl 25,000 unit In 0.45 % NaCl 1 250ml.bag @ 6. 826 UNITS/KG/HR 10 mls/hr IV .Q24H [facility] Rx#: [id number] Mvi, Adult No.4 with Vit 90 K 10 ml Trace (Conc-1Ml/ Dose) 1 ml Sodium Acetate 30 meq Potassium Phosphate 15 mmol Magnesium Sulfate gm 1 gm Calcium Gluconate 1 gm In Amino Acids 5 %/ Dextrose 20 % 1,000 ml @ 30 mls/hr IV .Q24H [facility] Rx #:[id number] Norepinephrine 32 mg In 63.863 80.576 48.034 Sodium Chloride 0.9% 218 ml @ 0.03 MCG/KG/MIN 2.06 mls/hr IV .Q24H [facility] Rx#: [id number] Potassium Chloride 10 meq 200 In Water For Injection 1 100ml.bag @ 100 mls/hr IVPB Q1HR [facility] Rx#: [id number] Vasopressin 60 unit In 89.862 Sodium Chloride 0.9% 150 ml @ 0.03 UNITS/MIN 4.59 mls/hr IV .Q24H [facility] Rx#: [id number] propofoL 1,000 mg In 100 312.867 81.875 Empty Bag 1 bag @ 15 MCG/ KG/MIN 8.9 mls/hr IV . [id number] [facility] Rx#:[id number] Output: Gastric Drainage 10 Drainage 10 20 Right abdominal ABDIAZIZ drain 10 20 Urine 900 1255 240 Other: Voiding Method Indwelling Catheter Indwelling Catheter ABP, PAP, CO, CI - Last Documented Arterial Blood Pressure 138/47 - Labs CBC & Chem 7: 08/16/24 04:08 08/16/24 12:05 Labs: Abnormal Lab Results - Last 24 Hours (Table) 08/15/24 08/15/24 08/15/24 Range/Units 06:00 11:40 17:34 WBC (3.8-10.6) k/uL RBC (4.30-5.90) m/uL Hgb (13.0-17.5) gm/dL Hct (39.0-53.0) % MCH (25.0-35.0) pg MCHC (31.0-37.0) g/dL RDW (11.5-15.5) % Neutrophils # (Manual) (1.3-7.7) k/uL APTT (22.0-30.0) sec ABG pH (7.35-7.45) ABG pO2 (83-108) mmHg ABG Total CO2 (19-24) mmol/L Hemoglobin (13.0-17.5) gm/dL Potassium (3.5-5.1) mmol/L Chloride (98-107) mmol/L BUN (9-20) mg/dL Creatinine (0.66-1.25) mg/dL Glucose (74-99) mg/dL POC Glucose (mg/dL) 181 H 198 H (70-110) mg/dL Calcium (8.4-10.2) mg/dL Albumin 2.0 L (3.5-5.0) g/dL Triglycerides (0.00-149.00) mg/dL 08/15/24 08/16/24 08/16/24 Range/Units 23:16 04:08 04:08 WBC (3.8-10.6) k/uL RBC (4.30-5.90) m/uL Hgb (13.0-17.5) gm/dL Hct (39.0-53.0) % MCH (25.0-35.0) pg MCHC (31.0-37.0) g/dL RDW (11.5-15.5) % Neutrophils # (Manual) (1.3-7.7) k/uL APTT (22.0-30.0) sec ABG pH (7.35-7.45) ABG pO2 (83-108) mmHg ABG Total CO2 (19-24) mmol/L Hemoglobin (13.0-17.5) gm/dL Potassium 3.4 L (3.5-5.1) mmol/L Chloride 110 H (98-107) mmol/L BUN 49 H (9-20) mg/dL Creatinine 1.87 H (0.66-1.25) mg/dL Glucose 224 H (74-99) mg/dL POC Glucose (mg/dL) 231 H (70-110) mg/dL Calcium 7.3 L (8.4-10.2) mg/dL Albumin (3.5-5.0) g/dL Triglycerides 359.00 H (0.00-149.00) mg/dL 08/16/24 08/16/24 08/16/24 Range/Units 04:08 04:08 04:13 WBC 20.9 H (3.8-10.6) k/uL RBC 3.23 L (4.30-5.90) m/uL Hgb 8.0 L (13.0-17.5) gm/dL Hct 26.7 L (39.0-53.0) % MCH 24.6 L (25.0-35.0) pg MCHC 29.8 L (31.0-37.0) g/dL RDW 19.7 H (11.5-15.5) % Neutrophils # (Manual) 18.60 H (1.3-7.7) k/uL APTT 38.8 H (22.0-30.0) sec ABG pH 7.46 H (7.35-7.45) ABG pO2 71 L (83-108) mmHg ABG Total CO2 27 H (19-24) mmol/L Hemoglobin 7.8 L (13.0-17.5) gm/dL Potassium (3.5-5.1) mmol/L Chloride (98-107) mmol/L BUN (9-20) mg/dL Creatinine (0.66-1.25) mg/dL Glucose (74-99) mg/dL POC Glucose (mg/dL) (70-110) mg/dL Calcium (8.4-10.2) mg/dL Albumin (3.5-5.0) g/dL Triglycerides (0.00-149.00) mg/dL 08/16/24 Range/Units 05:09 WBC (3.8-10.6) k/uL RBC (4.30-5.90) m/uL Hgb (13.0-17.5) gm/dL Hct (39.0-53.0) % MCH (25.0-35.0) pg MCHC (31.0-37.0) g/dL RDW (11.5-15.5) % Neutrophils # (Manual) (1.3-7.7) k/uL APTT (22.0-30.0) sec ABG pH (7.35-7.45) ABG pO2 (83-108) mmHg ABG Total CO2 (19-24) mmol/L Hemoglobin (13.0-17.5) gm/dL Potassium (3.5-5.1) mmol/L Chloride (98-107) mmol/L BUN (9-20) mg/dL Creatinine (0.66-1.25) mg/dL Glucose (74-99) mg/dL POC Glucose (mg/dL) 241 H (70-110) mg/dL Calcium (8.4-10.2) mg/dL Albumin (3.5-5.0) g/dL Triglycerides (0.00-149.00) mg/dL Microbiology - Last 24 Hours (Table) 08/12/24 21:50 Blood Culture - Preliminary Blood Assessment and Plan Time with Patient: Less than 30
--- NOTE | 2024-08-16 16:11 | P.PN ---
Subjective Progress Note Date: 08/16/24 On 08/14/2024, this patient is being seen for a follow-up. The patient is postop day #2. The patient was found to have a perforated gastric ulcer with pneumoperitoneum. The patient underwent expected laparotomy abdominal washout and a modified Kiet patch. The patient is postop day #2. This morning, the patient remains intubated on mechanical ventilator. The patient on propofol running at 40 mcg/kg/min. Remains on active drinking at 125 cc an hour. Remains on norepinephrine running at 0.11 mcg/kg/min and vasopressin physiologic dose. On a mechanical ventilator, assist-control mode with rate of 18, tidal volume of 500, FiO2 30% with a PEEP of 5. Blood gas with a pH of 7.38 with a pCO2 of 33 and pO2 of 79. The patient's rhythm is atrial fibrillation. The patient has a ABDIAZIZ drain output is minimal at this point, the patient is covered with a combination of Zosyn and Diflucan. The patient received a total of 2 units of packed RBC postop. Blood work from today shows a WBC count of 26, hemoglobin 9.5 and a platelet count of 457. Sodium is at 139, BUN is 18 with a creatinine of 2.5 and a BUN of 71. Serum bicarbonate of 18. The patient does have an underlying acute on top of chronic kidney disease. He is febrile with a temperature of 101.7. He remains tachycardic. On 08/15/2024, the patient is being seen for a follow-up. This morning, the patient is still intubated on the mechanical ventilator. The patient sedated on propofol which is running at 40 mcg/kg/min. Remains on a mechanical ventilator assist-control mode at rate of 18, tidal volume of 500, FiO2 of 30% with a PEEP of 5. Blood gas from today showed a pH of 7.45 with a pCO2 of 35 and pO2 of 75. Chest x-ray from today shows ET tube in adequate location. Findings are consistent with CHF and volume overload and some worsening in the left basilar opacity/atelectasis. Hemodynamically, the patient remains in atrial fibrillation. Heart rate is under better control. The patient is on Cardizem drip that this has been weaned down to 2.5 mg an hour and the patient remains on IV heparin this was tolerated yesterday. At the same time, the patient remains on norepinephrine running at 0.1 mcg/kg/min and vasopressin physiologic dose. Lactated Ringer's running at a rate of 125 cc an hour and the patient is a positive fluid balance of 2.4 L. ABDIAZIZ output is minimal in the order of 5 to 10 cc over the past 12 hours. NG output is also minimal. Rest of the blood work showed a white cell count of 27.7, hemoglobin 8.5 and a platelet count of 407. The sodium levels at 141, BUN 58 with a creatinine of 2.1. Serum bicarb is at 23 and the chloride is 109. Glucose is 870. The blood cultures are still negat venkata.Echocardiogram showed a impaired LV function with ejection fraction of 35 to 40%. Right ventricular systolic pressure is at 54. 08/16/2024, patient is being seen for a follow-up in the intensive care unit. This morning, the patient remains intubated on mechanical ventilator. The patient sedated on propofol running at 40 mcg/kg/min. The patient is on assist- control mode with rate of 18, tidal volume of 500, FiO2 30% with a PEEP of 5. Blood gas showed a pH of 7.46 with a pCO2 of 37 and pO2 of 71. Chest x-ray from this morning shows worsening pulmonary vascular congestion and cardiomegaly with development of bilateral pleural effusions. There are some atelectatic changes in lung bases bilaterally. The patient was started on TPN which is currently running at 30 cc an hour. IV fluids are currently at KVO. Output from the NG tube is minimal in the order of 10 cc over the past 8 hours, output from the ABDIAZIZ is minimal in the order of 10 cc an hour. The patient is in atrial fibrill ation. The patient is having occasional PVCs. Remains on Cardizem drip at 2.5 mg an hour and the patient is also on IV heparin. Norepinephrine is running at 0.09 mcg/kg/min. The white cell count is improved and is currently down to 20 with a hemoglobin of 8 and a platelet count of 345. BUN is 49 with a creatinine of 1.87. Sodium levels at 142, potassium level is at 3.7, chloride is 110. Rem ains on a combination of Zosyn and Diflucan. Objective - Vital Signs Vital signs: Vital Signs Temp 99.6 F 08/16/24 08:00 Pulse 78 08/16/24 08:45 Resp 18 08/16/24 08:45 BP 106/52 08/16/24 08:15 Pulse Ox 93 L 08/16/24 08:45 FiO2 30 08/16/24 09:05 Intake & Output 08/15/24 08/16/24 08/16/24 18:59 06:59 18:59 Intake Total 2049.225 1080.776 560.330 Output Total 910 1275 250 Balance 1139.225 -194.224 310.330 Weight 141.5 kg Intake: IV 1550 550 150 Fluconazole in NaCl,Iso- 100 Osm 200 mg In Saline 1 100ml.bag @ 100 mls/hr IVPB DAILY [facility] Rx#: [id number] Lactated Ringers 1,000 ml 1250 550 150 @ 50 mls/hr IV .Q20H [facility] Rx#:[id number] Piperacillin-Tazobactam 3 200 .375 gm In Sodium Chloride 0.9% 100 ml @ 25 mls/hr IVPB Q8HR [facility] Rx# :[id number] Intake, IV Titration 499.225 530.776 410.330 Amount Diltiazem 125 mg In 20 Sodium Chloride 0.9% 100 ml @ Per Protocol IV .Q0M [facility] Rx#:[id number] Heparin Sod,Pork in 0.45% 225.5 137.333 NaCl 25,000 unit In 0.45 % NaCl 1 250ml.bag @ 6. 826 UNITS/KG/HR 10 mls/hr IV .Q24H [facility] Rx#: [id number] Mvi, Adult No.4 with Vit 90 K 10 ml Trace (Conc-1Ml/ Dose) 1 ml Sodium Acetate 30 meq Potassium Phosphate 15 mmol Magnesium Sulfate gm 1 gm Calcium Gluconate 1 gm In Amino Acids 5 %/ Dextrose 20 % 1,000 ml @ 30 mls/hr IV .Q24H [facility] Rx #:[id number] Norepinephrine 32 mg In 63.863 80.576 38.455 Sodium Chloride 0.9% 218 ml @ 0.03 MCG/KG/MIN 2.06 mls/hr IV .Q24H [facility] Rx#: [id number] Potassium Chloride 10 meq 200 In Water For Injection 1 100ml.bag @ 100 mls/hr IVPB Q1HR [facility] Rx#: [id number] Vasopressin 60 unit In 89.862 Sodium Chloride 0.9% 150 ml @ 0.03 UNITS/MIN 4.59 mls/hr IV .Q24H [facility] Rx#: [id number] propofoL 1,000 mg In 100 312.867 81.875 Empty Bag 1 bag @ 15 MCG/ KG/MIN 8.9 mls/hr IV . [id number] [facility] Rx#:[id number] Output: Gastric Drainage 10 Drainage 10 20 Right abdominal ABDIAZIZ drain 10 20 Urine 900 1255 240 Other: Voiding Method Indwelling Catheter Indwelling Catheter ABP, PAP, CO, CI - Last Documented Arterial Blood Pressure 138/47 - Exam GENERAL EXAM: Intubated, sedated 79-year-old male patient, on mechanical ventilator. HEAD: Normocephalic. EYES: Sluggish reaction of pupils, equal size. NOSE: Clear with pink turbinates. THROAT: Oral endotracheal and gastric tube secured in place. No erythema or exudates. NECK: No masses, no JVD. Right IJ triple-lumen catheter in place. CHEST: No chest wall deformity. LUNGS: Equal air entry with no crackles, wheeze, rhonchi or dullness. CVS: S1 and S irregular consistent with atrial fibrillation with no audible murmur, irregular rhythm. ABDOMEN: Abdominal dressing dry and intact. ABDIAZIZ drain in place. No hepatosplenomegaly. SPINE: No scoliosis or deformity SKIN: No rashes CENTRAL NERVOUS SYSTEM: Sedated, tone is normal in all 4 extremities. EXTREMITIES: Left radial arterial line in place. There is no peripheral edema. No clubbing, no cyanosis. Peripheral pulses are intact. - Labs CBC & Chem 7: 08/16/24 04:08 08/16/24 12:05 Labs: Abnormal Lab Results - Last 24 Hours (Table) 08/15/24 08/15/24 08/15/24 Range/Units 06:00 11:40 17:34 WBC (3.8-10.6) k/uL RBC (4.30-5.90) m/uL Hgb (13.0-17.5) gm/dL Hct (39.0-53.0) % MCH (25.0-35.0) pg MCHC (31.0-37.0) g/dL RDW (11.5-15.5) % Neutrophils # (Manual) (1.3-7.7) k/uL APTT (22.0-30.0) sec ABG pH (7.35-7.45) ABG pO2 (83-108) mmHg ABG Total CO2 (19-24) mmol/L Hemoglobin (13.0-17.5) gm/dL Potassium (3.5-5.1) mmol/L Chloride (98-107) mmol/L BUN (9-20) mg/dL Creatinine (0.66-1.25) mg/dL Glucose (74-99) mg/dL POC Glucose (mg/dL) 181 H 198 H (70-110) mg/dL Calcium (8.4-10.2) mg/dL Albumin 2.0 L (3.5-5.0) g/dL Triglycerides (0.00-149.00) mg/dL 08/15/24 08/16/24 08/16/24 Range/Units 23:16 04:08 04:08 WBC (3.8-10.6) k/uL RBC (4.30-5.90) m/uL Hgb (13.0-17.5) gm/dL Hct (39.0-53.0) % MCH (25.0-35.0) pg MCHC (31.0-37.0) g/dL RDW (11.5-15.5) % Neutrophils # (Manual) (1.3-7.7) k/uL APTT (22.0-30.0) sec ABG pH (7.35-7.45) ABG pO2 (83-108) mmHg ABG Total CO2 (19-24) mmol/L Hemoglobin (13.0-17.5) gm/dL Potassium 3.4 L (3.5-5.1) mmol/L Chloride 110 H (98-107) mmol/L BUN 49 H (9-20) mg/dL Creatinine 1.87 H (0.66-1.25) mg/dL Glucose 224 H (74-99) mg/dL POC Glucose (mg/dL) 231 H (70-110) mg/dL Calcium 7.3 L (8.4-10.2) mg/dL Albumin (3.5-5.0) g/dL Triglycerides 359.00 H (0.00-149.00) mg/dL 08/16/24 08/16/24 08/16/24 Range/Units 04:08 04:08 04:13 WBC 20.9 H (3.8-10.6) k/uL RBC 3.23 L (4.30-5.90) m/uL Hgb 8.0 L (13.0-17.5) gm/dL Hct 26.7 L (39.0-53.0) % MCH 24.6 L (25.0-35.0) pg MCHC 29.8 L (31.0-37.0) g/dL RDW 19.7 H (11.5-15.5) % Neutrophils # (Manual) 18.60 H (1.3-7.7) k/uL APTT 38.8 H (22.0-30.0) sec ABG pH 7.46 H (7.35-7.45) ABG pO2 71 L (83-108) mmHg ABG Total CO2 27 H (19-24) mmol/L Hemoglobin 7.8 L (13.0-17.5) gm/dL Potassium (3.5-5.1) mmol/L Chloride (98-107) mmol/L BUN (9-20) mg/dL Creatinine (0.66-1.25) mg/dL Glucose (74-99) mg/dL POC Glucose (mg/dL) (70-110) mg/dL Calcium (8.4-10.2) mg/dL Albumin (3.5-5.0) g/dL Triglycerides (0.00-149.00) mg/dL 08/16/24 Range/Units 05:09 WBC (3.8-10.6) k/uL RBC (4.30-5.90) m/uL Hgb (13.0-17.5) gm/dL Hct (39.0-53.0) % MCH (25.0-35.0) pg MCHC (31.0-37.0) g/dL RDW (11.5-15.5) % Neutrophils # (Manual) (1.3-7.7) k/uL APTT (22.0-30.0) sec ABG pH (7.35-7.45) ABG pO2 (83-108) mmHg ABG Total CO2 (19-24) mmol/L Hemoglobin (13.0-17.5) gm/dL Potassium (3.5-5.1) mmol/L Chloride (98-107) mmol/L BUN (9-20) mg/dL Creatinine (0.66-1.25) mg/dL Glucose (74-99) mg/dL POC Glucose (mg/dL) 241 H (70-110) mg/dL Calcium (8.4-10.2) mg/dL Albumin (3.5-5.0) g/dL Triglycerides (0.00-149.00) mg/dL Microbiology - Last 24 Hours (Table) 08/12/24 21:50 Blood Culture - Preliminary Blood Assessment and Plan Plan: Acute abdominal pain secondary to perforated gastric ulcer with pneumoperitoneum. Status post exploratory laparotomy, abdominal washout and modified Kiet patch. Postoperative day # 4 Acute sepsis with hypotension secondary to above, patient remains hypotensive and the patient continues to have leukocytosis. Covered with a combination of Zosyn and Diflucan. Has been adequately fluid resuscitated. The patient is currently on low-dose norepinephrine. Vasopressin has been discontinued Hypotension requiring pressor support, still on low-dose norepinephrine Acute hypoxic respiratory failure secondary to above. This is an expected outcome of gastric perforation and sepsis. The patient remains intubated on the mechanical ventilator and the patient has developed bilateral pleural effusion and atelectatic change in lung bases along with pulm vessel congestion. Systolic heart failure with ejection fraction of 35% Acute blood loss anemia, received 2 units of packed red blood cells, hemoglobin stable at 8 Leukocytosis secondary to above, improving Acute kidney injury secondary to above on top of chronic kidney disease, improving Chronic atrial fibrillation, rate controlled on Cardizem drip at 2.5 mg an hour and the patient is also on IV heparin History of hypertension Non-smoker History of prostate cancer Plan: Continue vent support no changes Change IV fluids to KVO Continue Cardizem drip at 2.5 mg an hour Continue IV heparin watch for any signs of bleeding The patient remains on pressors and the patient is on low-dose norepinephrine Monitor renal function, improving Monitor white cell count, improving Monitor cultures Continue Zosyn and Diflucan Keep the patient sedated on propofol, give the patient a sedation holiday TPN initiated currently at rate of 30 cc an hour Monitor the NG output and the output from the ABDIAZIZ drain Started Lantus insulin 10 units daily along with a sliding scale coverage We will continue to follow and make further recommendations based on his clinical status Critical care evaluation, 32 minutes. Time with Patient: Greater than 30
[2024-08-16 17:33] LABS: Glucose,Whole Blood 236 mg/dL (70-110)
[2024-08-16 23:15] LABS: Glucose,Whole Blood 233 mg/dL (70-110)
[2024-08-17 03:58] LABS: Glucose,Whole Blood 247 mg/dL (70-110)
[2024-08-17 04:10] LABS: Anisocytosis Slight; HCT 25.9 % (39.0-53.0); HGB 7.5 gm/dL (13.0-17.5); Hypochromasia Marked; MCH 23.7 pg (25.0-35.0); MCHC 28.7 g/dL (31.0-37.0); MCV 82.5 fL (80.0-100.0); Mean Platelet Volume 9.1; Microcytosis Slight; Platelet Count 305 k/uL (150-450); Poikilocytosis Moderate; RBC 3.14 m/uL (4.30-5.90); RDW 19.9 % (11.5-15.5)
[2024-08-17 04:40] LABS: Band Neutrophils % 2 %; Eosinophils # (M) 0.18 k/uL (0-0.7); Lymphocytes # (M) 1.62 k/uL (1.0-4.8); Monocytes # (M) 1.08 k/uL (0-1.0); Neutrophils % (M) 82 %; Nucleated Red Blood Cells 0 /100 WBC (0-0); Total Cells Counted 100
[2024-08-17 04:42] LABS: ALT 10 U/L (4-49); AST 15 U/L (17-59); African American GFR (CKD) 46 (>60 ml/min/1.73 sqM); Albumin 1.8 g/dL (3.5-5.0); Alkaline Phosphatase 81 U/L (38-126); Anion Gap 6 mmol/L; Blood Urea Nitrogen 39 mg/dL (9-20); Calcium 7.3 mg/dL (8.4-10.2); Carbon Dioxide 24 mmol/L (22-30); Chloride 112 mmol/L (98-107); Glucose 217 mg/dL (74-99); Magnesium 2.1 mg/dL (1.6-2.3); Non-African American GFR(CKD) 40 (>60 ml/min/1.73 sqM); Phosphorus 2.8 mg/dL (2.5-4.5); Potassium 3.7 mmol/L (3.5-5.1); Sodium 142 mmol/L (137-145); Total Bilirubin 0.4 mg/dL (0.2-1.3); Total Protein 4.4 g/dL (6.3-8.2)
[2024-08-17 04:43] LABS: Anisocytosis (M) Present; Polychromasia Present
[2024-08-17] MEDS: POTASSIUM CHLORIDE 10 MEQ in WATER FOR INJECTION 1 100ML.BAG IVPB SCH ×3 (05:02→21:47)
[2024-08-17 05:13] LABS: ABG Base Excess 0.9 mmol/L; ABG HCO3 25 mmol/L (21-25); ABG Oxygen Saturation 95.2 % (94-97); ABG PCO2 35 mmHg (35-45); ABG PH 7.46 (7.35-7.45); ABG PO2 70 mmHg (83-108); ABG TCO2 26 mmol/L (19-24)
[2024-08-17 05:31] LABS: Allen Test Performed? no
[2024-08-17 05:56] LABS: Glucose,Whole Blood 259 mg/dL (70-110)
--- NOTE | 2024-08-17 06:01 | XR ---
EXAMINATION TYPE: XR chest 1V portable DATE OF EXAM: 08/17/2024 CLINICAL INDICATION: Male, 79 years old with history of mechanical ventilation, progress study. SOB. TECHNIQUE: Single AP portable upright view of the chest is obtained. COMPARISON: Chest x-ray from one day earlier. FINDINGS: Stable endotracheal and orogastric tubes. Stable right internal jugular central venous cat heter. Persistent low lung volumes with central vascular congestion and small to borderline moderate size bi lateral pleural effusions. Associated bibasilar opacity redemonstrated. Osseous structures are intact . IMPRESSION: Findings suggest continued CHF exacerbation/fluid overload state. Correlate clinically. [facility], , 08/17/2024 5:59 AM
[2024-08-17] MEDS: INSULIN GLARGINE (LANTUS) 100 UNIT/ML SYR SQ ONE (09:25)
[2024-08-17] MEDS ORDERED: INSULIN GLARGINE (LANTUS) 100 UNIT/ML SYR SQ ONE (09:40)
[2024-08-17] MEDS: FUROSEMIDE 10 MG/ML 4 ML VIAL IV SCH (10:02)
--- NOTE | 2024-08-17 11:14 | P.PN ---
Subjective Patient is seen in follow-up for acute kidney injury. Renal function improving. Nonoliguric. On low-dose Levophed. Receiving TPN. Receiving TPN. Intubated. Vital signs - On vasopressor support. General: Resting in bed. HEENT: Intubated. LUNGS: Scattered rhonchi. HEART: Regular rate and rhythm. ABDOMEN: ABDIAZIZ drain noted. EXTREMITITES: 1+ edema. Objective - Vital Signs Vital signs: Vital Signs Temp 99.1 F 08/17/24 08:00 Pulse 86 08/17/24 09:15 Resp 19 08/17/24 09:15 BP 101/63 08/17/24 04:45 Pulse Ox 94 L 08/17/24 09:15 FiO2 30 08/17/24 08:00 Intake & Output 08/16/24 08/17/24 08/17/24 18:59 06:59 18:59 Intake Total 2100.328 1054.780 621.097 Output Total 1690 1390 305 Balance 410.328 -335.220 316.097 Weight 141.5 kg Intake: IV 630 520 285 .9NS KVO 60 Fluconazole in NaCl,Iso- 100 50 Osm 200 mg In Saline 1 100ml.bag @ 100 mls/hr IVPB DAILY [facility] Rx#: [id number] Lactated Ringers 1,000 ml 180 20 @ 20 mls/hr IV .Q24H [facility] Rx#:[id number] Lactated Ringers 1,000 ml 150 @ 50 mls/hr IV .Q20H [facility] Rx#:[id number] Piperacillin-Tazobactam 3 200 100 75 .375 gm In Sodium Chloride 0.9% 100 ml @ 25 mls/hr IVPB Q8HR [facility] Rx# :[id number] Potassium Chloride 10 meq 400 100 In Water For Injection 1 100ml.bag @ 100 mls/hr IVPB Q1H [facility] Rx#: [id number] Intake, IV Titration 1470.328 534.780 336.097 Amount Heparin Sod,Pork in 0.45% 102.363 205.156 39.813 NaCl 25,000 unit In 0.45 % NaCl 1 250ml.bag @ 6. 826 UNITS/KG/HR 10 mls/hr IV .Q24H [facility] Rx#: [id number] Mvi, Adult No.4 with Vit 240 K 10 ml Trace (Conc-1Ml/ Dose) 1 ml Sodium Acetate 30 meq Potassium Phosphate 15 mmol Magnesium Sulfate gm 1 gm Calcium Gluconate 1 gm In Amino Acids 5 %/ Dextrose 20 % 1,000 ml @ 30 mls/hr IV .Q24H [facility] Rx #:[id number] Mvi, Adult No.4 with Vit 100 100 150 K 10 ml Trace (Conc-1Ml/ Dose) 1 ml Sodium Acetate 30 meq Potassium Phosphate 15 mmol Magnesium Sulfate gm 1 gm Calcium Gluconate 1 gm In Amino Acids 5 %/ Dextrose 20 % 1,000 ml @ 50 mls/hr IV .[id number] [facility] Rx#:[id number] Mvi, Adult No.4 with Vit 30 K 10 ml Trace (Conc-1Ml/ Dose) 1 ml Sodium Acetate 30 meq Potassium Phosphate 15 mmol Magnesium Sulfate gm 1 gm Calcium Gluconate 1 gm In Amino Acids 5 %/ Dextrose 20 % 1,000 ml @ 65 mls/hr IV .BY DURATION [facility] Rx#:[id number] Norepinephrine 32 mg In 67.490 42.933 5.721 Sodium Chloride 0.9% 218 ml @ 0.03 MCG/KG/MIN 2.06 mls/hr IV .Q24H [facility] Rx#: [id number] Potassium Chloride 10 meq 300 In Water For Injection 1 100ml.bag @ 100 mls/hr IVPB Q1H [facility] Rx#: [id number] Potassium Chloride 10 meq 300 In Water For Injection 1 100ml.bag @ 100 mls/hr IVPB Q1HR [facility] Rx#: [id number] Sodium Acetate 30 meq 60 Potassium Phosphate 15 mmol Magnesium Sulfate gm 1 gm Calcium Gluconate 1 gm In Amino Acids 5 %/ Dextrose 20 % 1,000 ml @ 65 mls/hr IV .BY DURATION [facility] Rx#:[id number] propofoL 1,000 mg In 270.475 186.691 140.563 Empty Bag 1 bag @ 15 MCG/ KG/MIN 8.9 mls/hr IV . [id number] [facility] Rx#:[id number] Output: Gastric Drainage 110 200 Drainage 30 60 Right abdominal ABDIAZIZ drain 30 60 Urine 1550 1130 305 Other: Voiding Method Indwelling Catheter Indwelling Catheter ABP, PAP, CO, CI - Last Documented Arterial Blood Pressure 111/44 - Labs CBC & Chem 7: 08/17/24 04:00 08/17/24 04:00 Labs: Abnormal Lab Results - Last 24 Hours (Table) 08/16/24 08/16/24 08/16/24 Range/Units 11:48 12:05 17:31 WBC (3.8-10.6) k/uL RBC (4.30-5.90) m/uL Hgb (13.0-17.5) gm/dL Hct (39.0-53.0) % MCH (25.0-35.0) pg MCHC (31.0-37.0) g/dL RDW (11.5-15.5) % Neutrophils # (Manual) (1.3-7.7) k/uL Monocytes # (Manual) (0-1.0) k/uL APTT 52.4 H (22.0-30.0) sec ABG pH (7.35-7.45) ABG pO2 (83-108) mmHg ABG Total CO2 (19-24) mmol/L Hemoglobin (13.0-17.5) gm/dL Chloride (98-107) mmol/L BUN (9-20) mg/dL Creatinine (0.66-1.25) mg/dL Glucose (74-99) mg/dL POC Glucose (mg/dL) 244 H 236 H (70-110) mg/dL Calcium (8.4-10.2) mg/dL AST (17-59) U/L Total Protein (6.3-8.2) g/dL Albumin (3.5-5.0) g/dL 08/16/24 08/17/24 08/17/24 Range/Units 23:14 03:56 04:00 WBC (3.8-10.6) k/uL RBC (4.30-5.90) m/uL Hgb (13.0-17.5) gm/dL Hct (39.0-53.0) % MCH (25.0-35.0) pg MCHC (31.0-37.0) g/dL RDW (11.5-15.5) % Neutrophils # (Manual) (1.3-7.7) k/uL Monocytes # (Manual) (0-1.0) k/uL APTT (22.0-30.0) sec ABG pH (7.35-7.45) ABG pO2 (83-108) mmHg ABG Total CO2 (19-24) mmol/L Hemoglobin (13.0-17.5) gm/dL Chloride 112 H (98-107) mmol/L BUN 39 H (9-20) mg/dL Creatinine 1.64 H (0.66-1.25) mg/dL Glucose 217 H (74-99) mg/dL POC Glucose (mg/dL) 233 H 247 H (70-110) mg/dL Calcium 7.3 L (8.4-10.2) mg/dL AST 15 L (17-59) U/L Total Protein 4.4 L (6.3-8.2) g/dL Albumin 1.8 L (3.5-5.0) g/dL 08/17/24 08/17/24 08/17/24 Range/Units 04:00 05:05 05:11 WBC 18.0 H (3.8-10.6) k/uL RBC 3.14 L (4.30-5.90) m/uL Hgb 7.5 L (13.0-17.5) gm/dL Hct 25.9 L (39.0-53.0) % MCH 23.7 L (25.0-35.0) pg MCHC 28.7 L (31.0-37.0) g/dL RDW 19.9 H (11.5-15.5) % Neutrophils # (Manual) 15.10 H (1.3-7.7) k/uL Monocytes # (Manual) 1.08 H (0-1.0) k/uL APTT 36.8 H (22.0-30.0) sec ABG pH 7.46 H (7.35-7.45) ABG pO2 70 L (83-108) mmHg ABG Total CO2 26 H (19-24) mmol/L Hemoglobin 7.3 L (13.0-17.5) gm/dL Chloride (98-107) mmol/L BUN (9-20) mg/dL Creatinine (0.66-1.25) mg/dL Glucose (74-99) mg/dL POC Glucose (mg/dL) (70-110) mg/dL Calcium (8.4-10.2) mg/dL AST (17-59) U/L Total Protein (6.3-8.2) g/dL Albumin (3.5-5.0) g/dL 08/17/24 Range/Units 05:55 WBC (3.8-10.6) k/uL RBC (4.30-5.90) m/uL Hgb (13.0-17.5) gm/dL Hct (39.0-53.0) % MCH (25.0-35.0) pg MCHC (31.0-37.0) g/dL RDW (11.5-15.5) % Neutrophils # (Manual) (1.3-7.7) k/uL Monocytes # (Manual) (0-1.0) k/uL APTT (22.0-30.0) sec ABG pH (7.35-7.45) ABG pO2 (83-108) mmHg ABG Total CO2 (19-24) mmol/L Hemoglobin (13.0-17.5) gm/dL Chloride (98-107) mmol/L BUN (9-20) mg/dL Creatinine (0.66-1.25) mg/dL Glucose (74-99) mg/dL POC Glucose (mg/dL) 259 H (70-110) mg/dL Calcium (8.4-10.2) mg/dL AST (17-59) U/L Total Protein (6.3-8.2) g/dL Albumin (3.5-5.0) g/dL Microbiology - Last 24 Hours (Table) 08/12/24 21:50 Blood Culture - Preliminary Blood Assessment and Plan Plan: Assessment: 1. Acute kidney injury secondary to ATN. Creatinine 1.5 in January 2024 and 2.5 this admission. Improved to 1.64 today. Nonoliguric. No hydronephrosis noted on CT. 2. Perforated gastric ulcer with pneumoperitoneum status post ex lap with closure of ulcer August 13, 2024. 3. Septic shock on vasopressor support. 4. Metabolic acidosis secondary to acute kidney injury and lactic acidosis. Improved. 5. Diabetes mellitus. 6. A-fib with RVR. On Cardizem drip. Cardiology following. 7. Volume overload. Plan: Add IV Lasix. TPN per surgery. Replace potassium as needed. Wean FiO2 and vasopressors. Continue to monitor renal function and urine output.
[2024-08-17 12:03] LABS: Glucose,Whole Blood 282 mg/dL (70-110)
--- NOTE | 2024-08-17 12:23 | PN ---
PROGRESS NOTE SUBJECTIVE: Clinton is a 79-year-old gentleman, who is admitted to hospital with perforated bowel and pneumoperitoneum, whom we are following because of atrial fibrillation. He had frequent ventricular ectopy that has improved ever since I started him on IV Lopressor. He is also on IV heparin. PHYSICAL EXAMINATION: VITAL SIGNS: Heart rate is 86 beats per minute, blood pressure is 111/44, respiratory rate is 18, O2 saturation is 94%. CHEST: Reveals good air entry bilaterally. HEART: Reveals first and second heart sounds, irregular rhythm. ABDOMEN: Soft. EXTREMITIES: Did not reveal any edema. Peripheral pulses are felt. LABORATORY DATA: Recent labs showed BUN is 39, creatinine is 1.6, potassium is 3.7. Hemoglobin is 7.5. ASSESSMENT: 1. Vent requiring respiratory failure. 2. Perforated gastric ulcer. 3. Persistent atrial fibrillation. PLAN: The patient will continue with the IV heparin along with IV Lopressor. MMODL / IJN: [id number] /
--- NOTE | 2024-08-17 14:14 | P.PN ---
Subjective Progress Note Date: 08/17/24 SURGICAL PROGRESS NOTE CHIEF COMPLAINT: Perforated gastric ulcer HISTORY OF PRESENT ILLNESS: Patient is postop day #4 status post exploratory laparotomy and modified Kiet patch for perforated gastric ulcer. Patient remains in the ICU intubated. Patient undergoing weaning trial today. He did receive a dose of Lasix for fluid overload. Remains on a small dose of Levophed. ABDIAZIZ drain 60 mL serous output. Afebrile. WBC down from 20-18 Hgb 8- 7.5 creatinine 1.6. NG tube 300 mL output PHYSICAL EXAM: VITAL SIGNS: Reviewed. GENERAL: no acute distress. ABDOMEN: Soft. Nondistended. Incisional dressing clean dry and intact. ABDIAZIZ drain serous output NEUROLOGIC: Intubated and sedated ASSESSMENT: 1. Perforated gastric ulcer status post exploratory laparotomy and modified Kiet patch 2. Hypokalemia improved 3. A-fib on IV heparin PLAN: -Recommend upper GI on postop day #5 if patient is extubated -Continue TPN for nutrition support -Continue ICU management -Continue supportive care -Continue NG tube to low intermittent suction -Keep n.p.o. -Continue antibiotics -Continue to monitor ABDIAZIZ drain -Continue IV Protonix -Continue to monitor hemoglobin Physician Want Ad Clerk note has been reviewed by physician. Signing provider agrees with the documented findings, assessment, and plan of care. Objective - Vital Signs Vital signs: Vital Signs Temp 99.3 F 08/17/24 12:00 Pulse 98 08/17/24 13:15 Resp 15 08/17/24 13:15 BP 101/63 08/17/24 04:45 Pulse Ox 93 L 08/17/24 13:15 FiO2 30 08/17/24 12:00 Intake & Output 08/16/24 08/17/24 08/17/24 18:59 06:59 18:59 Intake Total 2100.328 1905.543 1097.344 Output Total 1690 1390 1830 Balance 410.328 -335.220 -778.656 Weight 141.5 kg Intake: IV 630 520 515 .9NS KVO 140 Fluconazole in NaCl,Iso- 100 50 Osm 200 mg In Saline 1 100ml.bag @ 100 mls/hr IVPB DAILY [facility] Rx#: [id number] Lactated Ringers 1,000 ml 180 20 @ 20 mls/hr IV .Q24H [facility] Rx#:[id number] Lactated Ringers 1,000 ml 150 @ 50 mls/hr IV .Q20H [facility] Rx#:[id number] Piperacillin-Tazobactam 3 200 100 125 .375 gm In Sodium Chloride 0.9% 100 ml @ 25 mls/hr IVPB Q8HR [facility] Rx# :[id number] Potassium Chloride 10 meq 400 200 In Water For Injection 1 100ml.bag @ 100 mls/hr IVPB Q1H [facility] Rx#: [id number] Intake, IV Titration 1470.328 534.780 536.344 Amount Heparin Sod,Pork in 0.45% 102.363 205.156 39.813 NaCl 25,000 unit In 0.45 % NaCl 1 250ml.bag @ 6. 826 UNITS/KG/HR 10 mls/hr IV .Q24H [facility] Rx#: [id number] Mvi, Adult No.4 with Vit 200 K 10 ml Trace (Conc-1Ml/ Dose) 1 ml Sodium Acetate 16 meq Potassium Acetate 14 meq Potassium Phosphate 21 mmol Magnesium Sulfate gm 0.75 gm Calcium Gluconate 1 gm In Amino Acids 5 %/ Dextrose 20 % 1,000 ml @ 50 mls/hr IV .[id number] [facility] Rx#:[id number] Mvi, Adult No.4 with Vit 240 K 10 ml Trace (Conc-1Ml/ Dose) 1 ml Sodium Acetate 30 meq Potassium Phosphate 15 mmol Magnesium Sulfate gm 1 gm Calcium Gluconate 1 gm In Amino Acids 5 %/ Dextrose 20 % 1,000 ml @ 30 mls/hr IV .Q24H [facility] Rx #:[id number] Mvi, Adult No.4 with Vit 100 100 150 K 10 ml Trace (Conc-1Ml/ Dose) 1 ml Sodium Acetate 30 meq Potassium Phosphate 15 mmol Magnesium Sulfate gm 1 gm Calcium Gluconate 1 gm In Amino Acids 5 %/ Dextrose 20 % 1,000 ml @ 50 mls/hr IV .[id number] [facility] Rx#:[id number] Mvi, Adult No.4 with Vit 30 K 10 ml Trace (Conc-1Ml/ Dose) 1 ml Sodium Acetate 30 meq Potassium Phosphate 15 mmol Magnesium Sulfate gm 1 gm Calcium Gluconate 1 gm In Amino Acids 5 %/ Dextrose 20 % 1,000 ml @ 65 mls/hr IV .BY DURATION [facility] Rx#:[id number] Norepinephrine 32 mg In 67.490 42.933 5.721 Sodium Chloride 0.9% 218 ml @ 0.03 MCG/KG/MIN 2.06 mls/hr IV .Q24H [facility] Rx#: [id number] Potassium Chloride 10 meq 300 In Water For Injection 1 100ml.bag @ 100 mls/hr IVPB Q1H [facility] Rx#: [id number] Potassium Chloride 10 meq 300 In Water For Injection 1 100ml.bag @ 100 mls/hr IVPB Q1HR [facility] Rx#: [id number] Sodium Acetate 30 meq 60 Potassium Phosphate 15 mmol Magnesium Sulfate gm 1 gm Calcium Gluconate 1 gm In Amino Acids 5 %/ Dextrose 20 % 1,000 ml @ 65 mls/hr IV .BY DURATION [facility] Rx#:[id number] propofoL 1,000 mg In 270.475 186.691 140.810 Empty Bag 1 bag @ 15 MCG/ KG/MIN 8.9 mls/hr IV . [id number] [facility] Rx#:[id number] Output: Gastric Drainage 110 200 Drainage 30 60 Right abdominal ABDIAZIZ drain 30 60 Urine 1550 1130 1830 Other: Voiding Method Indwelling Catheter Indwelling Catheter Indwelling Catheter ABP, PAP, CO, CI - Last Documented Arterial Blood Pressure 132/40 - Labs CBC & Chem 7: 08/17/24 04:00 08/17/24 12:01 Labs: Abnormal Lab Results - Last 24 Hours (Table) 08/16/24 08/16/24 08/17/24 Range/Units 17:31 23:14 03:56 WBC (3.8-10.6) k/uL RBC (4.30-5.90) m/uL Hgb (13.0-17.5) gm/dL Hct (39.0-53.0) % MCH (25.0-35.0) pg MCHC (31.0-37.0) g/dL RDW (11.5-15.5) % Neutrophils # (Manual) (1.3-7.7) k/uL Monocytes # (Manual) (0-1.0) k/uL APTT (22.0-30.0) sec ABG pH (7.35-7.45) ABG pO2 (83-108) mmHg ABG Total CO2 (19-24) mmol/L Hemoglobin (13.0-17.5) gm/dL Chloride (98-107) mmol/L BUN (9-20) mg/dL Creatinine (0.66-1.25) mg/dL Glucose (74-99) mg/dL POC Glucose (mg/dL) 236 H 233 H 247 H (70-110) mg/dL Calcium (8.4-10.2) mg/dL AST (17-59) U/L Total Protein (6.3-8.2) g/dL Albumin (3.5-5.0) g/dL 08/17/24 08/17/24 08/17/24 Range/Units 04:00 04:00 05:05 WBC 18.0 H (3.8-10.6) k/uL RBC 3.14 L (4.30-5.90) m/uL Hgb 7.5 L (13.0-17.5) gm/dL Hct 25.9 L (39.0-53.0) % MCH 23.7 L (25.0-35.0) pg MCHC 28.7 L (31.0-37.0) g/dL RDW 19.9 H (11.5-15.5) % Neutrophils # (Manual) 15.10 H (1.3-7.7) k/uL Monocytes # (Manual) 1.08 H (0-1.0) k/uL APTT 36.8 H (22.0-30.0) sec ABG pH (7.35-7.45) ABG pO2 (83-108) mmHg ABG Total CO2 (19-24) mmol/L Hemoglobin (13.0-17.5) gm/dL Chloride 112 H (98-107) mmol/L BUN 39 H (9-20) mg/dL Creatinine 1.64 H (0.66-1.25) mg/dL Glucose 217 H (74-99) mg/dL POC Glucose (mg/dL) (70-110) mg/dL Calcium 7.3 L (8.4-10.2) mg/dL AST 15 L (17-59) U/L Total Protein 4.4 L (6.3-8.2) g/dL Albumin 1.8 L (3.5-5.0) g/dL 08/17/24 08/17/24 08/17/24 Range/Units 05:11 05:55 11:59 WBC (3.8-10.6) k/uL RBC (4.30-5.90) m/uL Hgb (13.0-17.5) gm/dL Hct (39.0-53.0) % MCH (25.0-35.0) pg MCHC (31.0-37.0) g/dL RDW (11.5-15.5) % Neutrophils # (Manual) (1.3-7.7) k/uL Monocytes # (Manual) (0-1.0) k/uL APTT (22.0-30.0) sec ABG pH 7.46 H (7.35-7.45) ABG pO2 70 L (83-108) mmHg ABG Total CO2 26 H (19-24) mmol/L Hemoglobin 7.3 L (13.0-17.5) gm/dL Chloride (98-107) mmol/L BUN (9-20) mg/dL Creatinine (0.66-1.25) mg/dL Glucose (74-99) mg/dL POC Glucose (mg/dL) 259 H 282 H (70-110) mg/dL Calcium (8.4-10.2) mg/dL AST (17-59) U/L Total Protein (6.3-8.2) g/dL Albumin (3.5-5.0) g/dL 08/17/24 Range/Units 12:01 WBC (3.8-10.6) k/uL RBC (4.30-5.90) m/uL Hgb (13.0-17.5) gm/dL Hct (39.0-53.0) % MCH (25.0-35.0) pg MCHC (31.0-37.0) g/dL RDW (11.5-15.5) % Neutrophils # (Manual) (1.3-7.7) k/uL Monocytes # (Manual) (0-1.0) k/uL APTT 53.0 H (22.0-30.0) sec ABG pH (7.35-7.45) ABG pO2 (83-108) mmHg ABG Total CO2 (19-24) mmol/L Hemoglobin (13.0-17.5) gm/dL Chloride (98-107) mmol/L BUN (9-20) mg/dL Creatinine (0.66-1.25) mg/dL Glucose (74-99) mg/dL POC Glucose (mg/dL) (70-110) mg/dL Calcium (8.4-10.2) mg/dL AST (17-59) U/L Total Protein (6.3-8.2) g/dL Albumin (3.5-5.0) g/dL Microbiology - Last 24 Hours (Table) 08/12/24 21:50 Blood Culture - Preliminary Blood
[2024-08-17 17:33] LABS: Glucose,Whole Blood 238 mg/dL (70-110)
--- NOTE | 2024-08-17 17:55 | P.PN ---
Subjective Progress Note Date: 08/17/24 On 08/14/2024, this patient is being seen for a follow-up. The patient is postop day #2. The patient was found to have a perforated gastric ulcer with pneumoperitoneum. The patient underwent expected laparotomy abdominal washout and a modified Kiet patch. The patient is postop day #2. This morning, the patient remains intubated on mechanical ventilator. The patient on propofol running at 40 mcg/kg/min. Remains on active drinking at 125 cc an hour. Remains on norepinephrine running at 0.11 mcg/kg/min and vasopressin physiologic dose. On a mechanical ventilator, assist-control mode with rate of 18, tidal volume of 500, FiO2 30% with a PEEP of 5. Blood gas with a pH of 7.38 with a pCO2 of 33 and pO2 of 79. The patient's rhythm is atrial fibrillation. The patient has a ABDIAZIZ drain output is minimal at this point, the patient is covered with a combination of Zosyn and Diflucan. The patient received a total of 2 units of packed RBC postop. Blood work from today shows a WBC count of 26, hemoglobin 9.5 and a platelet count of 457. Sodium is at 139, BUN is 18 with a creatinine of 2.5 and a BUN of 71. Serum bicarbonate of 18. The patient does have an underlying acute on top of chronic kidney disease. He is febrile with a temperature of 101.7. He remains tachycardic. On 08/15/2024, the patient is being seen for a follow-up. This morning, the patient is still intubated on the mechanical ventilator. The patient sedated on propofol which is running at 40 mcg/kg/min. Remains on a mechanical ventilator assist-control mode at rate of 18, tidal volume of 500, FiO2 of 30% with a PEEP of 5. Blood gas from today showed a pH of 7.45 with a pCO2 of 35 and pO2 of 75. Chest x-ray from today shows ET tube in adequate location. Findings are consistent with CHF and volume overload and some worsening in the left basilar opacity/atelectasis. Hemodynamically, the patient remains in atrial fibrillation. Heart rate is under better control. The patient is on Cardizem drip that this has been weaned down to 2.5 mg an hour and the patient remains on IV heparin this was tolerated yesterday. At the same time, the patient remains on norepinephrine running at 0.1 mcg/kg/min and vasopressin physiologic dose. Lactated Ringer's running at a rate of 125 cc an hour and the patient is a positive fluid balance of 2.4 L. ABDIAZIZ output is minimal in the order of 5 to 10 cc over the past 12 hours. NG output is also minimal. Rest of the blood work showed a white cell count of 27.7, hemoglobin 8.5 and a platelet count of 407. The sodium levels at 141, BUN 58 with a creatinine of 2.1. Serum bicarb is at 23 and the chloride is 109. Glucose is 870. The blood cultures are still negat venkata.Echocardiogram showed a impaired LV function with ejection fraction of 35 to 40%. Right ventricular systolic pressure is at 54. 08/16/2024, patient is being seen for a follow-up in the intensive care unit. This morning, the patient remains intubated on mechanical ventilator. The patient sedated on propofol running at 40 mcg/kg/min. The patient is on assist- control mode with rate of 18, tidal volume of 500, FiO2 30% with a PEEP of 5. Blood gas showed a pH of 7.46 with a pCO2 of 37 and pO2 of 71. Chest x-ray from this morning shows worsening pulmonary vascular congestion and cardiomegaly with development of bilateral pleural effusions. There are some atelectatic changes in lung bases bilaterally. The patient was started on TPN which is currently running at 30 cc an hour. IV fluids are currently at KVO. Output from the NG tube is minimal in the order of 10 cc over the past 8 hours, output from the ABDIAZIZ is minimal in the order of 10 cc an hour. The patient is in atrial fibrill ation. The patient is having occasional PVCs. Remains on Cardizem drip at 2.5 mg an hour and the patient is also on IV heparin. Norepinephrine is running at 0.09 mcg/kg/min. The white cell count is improved and is currently down to 20 with a hemoglobin of 8 and a platelet count of 345. BUN is 49 with a creatinine of 1.87. Sodium levels at 142, potassium level is at 3.7, chloride is 110. Rem ains on a combination of Zosyn and Diflucan. On 08/17/2024, patient is being seen for a follow-up. This morning, the patient remains on propofol which is running at 40 mcg/kg/min. The patient was given sedation holiday yesterday. This was reported as the patient started having significant activities. The cardiac rhythm remains atrial fibrillation with controlled rate. This morning, the patient is calm and comfortable on propofol. He is on assist-control mode of mechanical ventilation at rate of 14, tidal volume of 500, FiO2 of 30% with a PEEP of 5. IV fluids are currently at KVO and the patient remains on TPN at a rate of 50 cc an hour. The patient is on low- dose norepinephrine running at 0.01 mcg/kg/min. The blood gas showed a pH of 7.46 with a pCO2 35 and pO2 of 70. Chest x-ray shows atelectatic changes and bilateral pleural effusions. NG tube output is in order of 100 cc over the past 8 hours. ABDIAZIZ output is in the order of 60 cc over the past 12 hours. The patient remains on IV heparin. The patient is off the Cardizem drip for now. The rest of the blood work shows a white cell count of 18, hemoglobin of 7.5 and a platelet count of 305. The sodium levels at 142, potassium level 3.8, chloride 112 and the bicarbonate is a 24. BUN 39 and a creatinine of 1.6. Blood sugars are elevated and the Lantus insulin dose will be further adjusted. No fever. No other significant events. Abdominal wound is dry clean and intact. Objective - Vital Signs Vital signs: Vital Signs Temp 99.1 F 08/17/24 08:00 Pulse 86 08/17/24 09:15 Resp 19 08/17/24 09:15 BP 101/63 08/17/24 04:45 Pulse Ox 94 L 08/17/24 09:15 FiO2 30 08/17/24 08:00 Intake & Output 08/16/24 08/17/24 08/17/24 18:59 06:59 18:59 Intake Total 2100.328 1054.780 428.036 Output Total 1690 1390 255 Balance 410.328 -335.220 173.036 Weight 141.5 kg Intake: IV 630 520 190 .9NS KVO 40 Fluconazole in NaCl,Iso- 100 Osm 200 mg In Saline 1 100ml.bag @ 100 mls/hr IVPB DAILY [facility] Rx#: [id number] Lactated Ringers 1,000 ml 180 20 @ 20 mls/hr IV .Q24H [facility] Rx#:[id number] Lactated Ringers 1,000 ml 150 @ 50 mls/hr IV .Q20H [facility] Rx#:[id number] Piperacillin-Tazobactam 3 200 100 50 .375 gm In Sodium Chloride 0.9% 100 ml @ 25 mls/hr IVPB Q8HR [facility] Rx# :[id number] Potassium Chloride 10 meq 400 100 In Water For Injection 1 100ml.bag @ 100 mls/hr IVPB Q1H [facility] Rx#: [id number] Intake, IV Titration 1470.328 534.780 238.036 Amount Heparin Sod,Pork in 0.45% 102.363 205.156 39.813 NaCl 25,000 unit In 0.45 % NaCl 1 250ml.bag @ 6. 826 UNITS/KG/HR 10 mls/hr IV .Q24H [facility] Rx#: [id number] Mvi, Adult No.4 with Vit 240 K 10 ml Trace (Conc-1Ml/ Dose) 1 ml Sodium Acetate 30 meq Potassium Phosphate 15 mmol Magnesium Sulfate gm 1 gm Calcium Gluconate 1 gm In Amino Acids 5 %/ Dextrose 20 % 1,000 ml @ 30 mls/hr IV .Q24H [facility] Rx #:[id number] Mvi, Adult No.4 with Vit 100 100 100 K 10 ml Trace (Conc-1Ml/ Dose) 1 ml Sodium Acetate 30 meq Potassium Phosphate 15 mmol Magnesium Sulfate gm 1 gm Calcium Gluconate 1 gm In Amino Acids 5 %/ Dextrose 20 % 1,000 ml @ 50 mls/hr IV .[id number] [facility] Rx#:[id number] Mvi, Adult No.4 with Vit 30 K 10 ml Trace (Conc-1Ml/ Dose) 1 ml Sodium Acetate 30 meq Potassium Phosphate 15 mmol Magnesium Sulfate gm 1 gm Calcium Gluconate 1 gm In Amino Acids 5 %/ Dextrose 20 % 1,000 ml @ 65 mls/hr IV .BY DURATION [facility] Rx#:[id number] Norepinephrine 32 mg In 67.490 42.933 3.295 Sodium Chloride 0.9% 218 ml @ 0.03 MCG/KG/MIN 2.06 mls/hr IV .Q24H [facility] Rx#: [id number] Potassium Chloride 10 meq 300 In Water For Injection 1 100ml.bag @ 100 mls/hr IVPB Q1H [facility] Rx#: [id number] Potassium Chloride 10 meq 300 In Water For Injection 1 100ml.bag @ 100 mls/hr IVPB Q1HR [facility] Rx#: [id number] Sodium Acetate 30 meq 60 Potassium Phosphate 15 mmol Magnesium Sulfate gm 1 gm Calcium Gluconate 1 gm In Amino Acids 5 %/ Dextrose 20 % 1,000 ml @ 65 mls/hr IV .BY DURATION [facility] Rx#:[id number] propofoL 1,000 mg In 270.475 186.691 94.928 Empty Bag 1 bag @ 15 MCG/ KG/MIN 8.9 mls/hr IV . [id number] [facility] Rx#:[id number] Output: Gastric Drainage 110 200 Drainage 30 60 Right abdominal ABDIAZIZ drain 30 60 Urine 1550 1130 255 Other: Voiding Method Indwelling Catheter Indwelling Catheter ABP, PAP, CO, CI - Last Documented Arterial Blood Pressure 111/44 - Exam GENERAL EXAM: Intubated, sedated 79-year-old male patient, on mechanical ventilator. Calm and comfortable on propofol. HEAD: Normocephalic. EYES: Sluggish reaction of pupils, equal size. NOSE: Clear with pink turbinates. THROAT: Oral endotracheal and gastric tube secured in place. No erythema or exu dates. NECK: No masses, no JVD. Right IJ triple-lumen catheter in place. CHEST: No chest wall deformity. LUNGS: Equal air entry with no crackles, wheeze, rhonchi or dullness. CVS: S1 and S irregular consistent with atrial fibrillation with no audible murmur, irregular rhythm. The rate is controlled. No significant ectopy is on today's evaluation. ABDOMEN: Abdominal dressing dry and intact. ABDIAZIZ drain in place. No hepatosplenomegaly. SPINE: No scoliosis or deformity SKIN: No rashes CENTRAL NERVOUS SYSTEM: Sedated, tone is normal in all 4 extremities. EXTREMITIES: Left radial arterial line in place. There is no peripheral edema. No clubbing, no cyanosis. Peripheral pulses are intact. - Labs CBC & Chem 7: 08/17/24 04:00 08/17/24 12:01 Labs: Abnormal Lab Results - Last 24 Hours (Table) 08/16/24 08/16/24 08/16/24 Range/Units 11:48 12:05 17:31 WBC (3.8-10.6) k/uL RBC (4.30-5.90) m/uL Hgb (13.0-17.5) gm/dL Hct (39.0-53.0) % MCH (25.0-35.0) pg MCHC (31.0-37.0) g/dL RDW (11.5-15.5) % Neutrophils # (Manual) (1.3-7.7) k/uL Monocytes # (Manual) (0-1.0) k/uL APTT 52.4 H (22.0-30.0) sec ABG pH (7.35-7.45) ABG pO2 (83-108) mmHg ABG Total CO2 (19-24) mmol/L Hemoglobin (13.0-17.5) gm/dL Chloride (98-107) mmol/L BUN (9-20) mg/dL Creatinine (0.66-1.25) mg/dL Glucose (74-99) mg/dL POC Glucose (mg/dL) 244 H 236 H (70-110) mg/dL Calcium (8.4-10.2) mg/dL AST (17-59) U/L Total Protein (6.3-8.2) g/dL Albumin (3.5-5.0) g/dL 08/16/24 08/17/24 08/17/24 Range/Units 23:14 03:56 04:00 WBC (3.8-10.6) k/uL RBC (4.30-5.90) m/uL Hgb (13.0-17.5) gm/dL Hct (39.0-53.0) % MCH (25.0-35.0) pg MCHC (31.0-37.0) g/dL RDW (11.5-15.5) % Neutrophils # (Manual) (1.3-7.7) k/uL Monocytes # (Manual) (0-1.0) k/uL APTT (22.0-30.0) sec ABG pH (7.35-7.45) ABG pO2 (83-108) mmHg ABG Total CO2 (19-24) mmol/L Hemoglobin (13.0-17.5) gm/dL Chloride 112 H (98-107) mmol/L BUN 39 H (9-20) mg/dL Creatinine 1.64 H (0.66-1.25) mg/dL Glucose 217 H (74-99) mg/dL POC Glucose (mg/dL) 233 H 247 H (70-110) mg/dL Calcium 7.3 L (8.4-10.2) mg/dL AST 15 L (17-59) U/L Total Protein 4.4 L (6.3-8.2) g/dL Albumin 1.8 L (3.5-5.0) g/dL 08/17/24 08/17/24 08/17/24 Range/Units 04:00 05:05 05:11 WBC 18.0 H (3.8-10.6) k/uL RBC 3.14 L (4.30-5.90) m/uL Hgb 7.5 L (13.0-17.5) gm/dL Hct 25.9 L (39.0-53.0) % MCH 23.7 L (25.0-35.0) pg MCHC 28.7 L (31.0-37.0) g/dL RDW 19.9 H (11.5-15.5) % Neutrophils # (Manual) 15.10 H (1.3-7.7) k/uL Monocytes # (Manual) 1.08 H (0-1.0) k/uL APTT 36.8 H (22.0-30.0) sec ABG pH 7.46 H (7.35-7.45) ABG pO2 70 L (83-108) mmHg ABG Total CO2 26 H (19-24) mmol/L Hemoglobin 7.3 L (13.0-17.5) gm/dL Chloride (98-107) mmol/L BUN (9-20) mg/dL Creatinine (0.66-1.25) mg/dL Glucose (74-99) mg/dL POC Glucose (mg/dL) (70-110) mg/dL Calcium (8.4-10.2) mg/dL AST (17-59) U/L Total Protein (6.3-8.2) g/dL Albumin (3.5-5.0) g/dL 08/17/24 Range/Units 05:55 WBC (3.8-10.6) k/uL RBC (4.30-5.90) m/uL Hgb (13.0-17.5) gm/dL Hct (39.0-53.0) % MCH (25.0-35.0) pg MCHC (31.0-37.0) g/dL RDW (11.5-15.5) % Neutrophils # (Manual) (1.3-7.7) k/uL Monocytes # (Manual) (0-1.0) k/uL APTT (22.0-30.0) sec ABG pH (7.35-7.45) ABG pO2 (83-108) mmHg ABG Total CO2 (19-24) mmol/L Hemoglobin (13.0-17.5) gm/dL Chloride (98-107) mmol/L BUN (9-20) mg/dL Creatinine (0.66-1.25) mg/dL Glucose (74-99) mg/dL POC Glucose (mg/dL) 259 H (70-110) mg/dL Calcium (8.4-10.2) mg/dL AST (17-59) U/L Total Protein (6.3-8.2) g/dL Albumin (3.5-5.0) g/dL Microbiology - Last 24 Hours (Table) 08/12/24 21:50 Blood Culture - Preliminary Blood Assessment and Plan Plan: Acute abdominal pain secondary to perforated gastric ulcer with pneumoperitoneum. Status post exploratory laparotomy, abdominal washout and modified Kiet patch. Postoperative day # 5 Acute sepsis with hypotension secondary to above, patient remains hypotensive and the patient continues to have leukocytosis. Covered with a combination of Zosyn and Diflucan. Has been adequately fluid resuscitated. The patient is currently on low-dose norepinephrine. Vasopressin has been discontinued Hypotension requiring pressor support, still on low-dose norepinephrine Acute hypoxic respiratory failure secondary to above. This is an expected outcome of gastric perforation and sepsis. The patient remains intubated on the mechanical ventilator and the patient has developed bilateral pleural effusion and atelectatic change in lung bases along with pulm vessel congestion. Systolic heart failure with ejection fraction of 35% Acute blood loss anemia, received 2 units of packed red blood cells, hemoglobin stable at 7.5 Leukocytosis secondary to above, improving Acute kidney injury secondary to above on top of chronic kidney disease, improving Chronic atrial fibrillation, rate controlled on IV Lopressor 5 mg every 8 hours and IV heparin History of hypertension Non-smoker History of prostate cancer Plan: Continue vent support no changes Change IV fluids to KVO Continue IV heparin watch for any signs of bleeding The patient remains on pressors and the patient is on low-dose norepinephrine Monitor renal function, improving Monitor white cell count, improving Monitor cultures Continue Zosyn and Diflucan Start the patient on Lasix 40 mg IV every 12 hours Keep the patient sedated on propofol, give the patient a sedation holiday TPN at a rate of 50 cc an hour Monitor the NG output and the output from the ABDIAZIZ drain Change Lantus to 20 units a day along with a sliding scale insulin coverage Sedation holiday and assess mentation We will continue to follow and make further recommendations based on his clinical status Critical care evaluation, 32 minutes. Time with Patient: Greater than 30
--- NOTE | 2024-08-17 18:57 | P.PN ---
Subjective Progress Note Date: 08/17/24 This is a 79-year-old male who was monitored in the intensive care unit. He is postoperative day #2 repair of perforated gastric ulcer with Kiet patch. He remains sedated and intubated on the mechanical ventilator. Patient has been febrile with a Tmax of 101.7 axillary in the last 24 hours. He was noted to be in atrial fibrillation with RVR and has been started on IV Cardizem. Eliquis remains on hold postsurgically. Patient continues on multiple antibiotic therapy including IV fluconazole IV Zosyn with infectious disease following closely. He is currently sedated with propofol he is requiring Levophed and vasopressin support. Blood culture remains negative so far. Labs reveal a white blood cell complement 3.7, hemoglobin 9.5, sodium 139, potassium 4.1, BUN of 31 creatinine 3.52 calcium of 6.8 chest x-ray today reveals continued CHF exacerbation and fluid overload state with no significant for 1 day earlier. Patient does have hypotensive bowel sounds. 08/15/2024 Patient is evaluated in the ICU he remains on the mechanical ventilator with PEEP of 5 and FiO2 of 30%. He is postoperative day #3 repair of perforated gastric ulcer with kiet patch. Currently sedated with propofol. Chest xray findings suggest continued CHF exacerbation fluid over load state. worsening left basilar opacity could reflect acute infiltrate and or atelectasis. Correlate clinically. White blood cell count 27.7, hgb 8.5, sodium 141, potassium 3.9, BUN 58, creatinine 2.10. Magnesium 1.8. 08/16/2024 Patient is evaluated today in the intensive care unit he is postoperative day #4 to get with Kiet patch. Patient remains sedated with propofol. He is currently intubated and on mechanical ventilator with a PEEP of 5 and FiO2 of 30%. Chest x-ray today reveals worsening CHF. His white blood cell count today is 20.9, hemoglobin 8, BUN of 49 creatinine of 1.87. Patient remains on room. He was having runs of V. tach and was taken off IV Cardizem started on an oral metoprolol on an outpatient basis. his heart rate is controlled. He continues on IV Zosyn. He remains on IV fluconazole. Blood sugars are elevated after the start of TPN. He was started on a small dose of Lantus and we will continue to monitor and make adjustments as needed. 08/17/2024 Patient is evaluated today in the ICU. He remains sedated and intubated on the mechanical ventilator. PEEP of 5 and FiO2 of 40%. Patient currently undergoing sedation holiday and has not been responsive. Patient received IV lasix x 1 and has since been started on IV lasix 40 mg [id number]. Patient remains on IV heparin. Continues on IV metoprolol and no further reports of ectopi noted. White blood cell count 18.0, hgb 7.5, BUN 39, creatinine 1.64. Blood glucose remains elevated in the 200s. Chest xray today reveals continued CHF. To complete a review of systems as patient is currently intubated and sedated in the intensive care unit PHYSICAL EXAMINATION: GENERAL: The patient is sedated, not in any acute distress. Well developed, well nourished. Pale HEENT: Pupils are round and equally reacting to light. EOMI. No scleral icterus. No conjunctival pallor. Normocephalic, atraumatic. No pharyngeal erythema. No thyromegaly. CARDIOVASCULAR: S1 and S2 present. No murmurs, rubs, or gallops. PULMONARY: Chest is clear to auscultation, no wheezing or crackles. ABDOMEN: Soft, nontender, nondistended, Hypoactive bowel sounds. No palpable organomegaly. Mid line incision intact no surrounding erythema or drainage MUSCULOSKELETAL: No joint swelling or deformity. EXTREMITIES: No cyanosis, clubbing, or pedal edema. NEUROLOGICAL: Gross neurological examination did not reveal any focal deficits. SKIN: No rashes. Assessment and plan Perforated gastric ulcer pneumoperitoneum postoperative day #4 surgical repair with Kiet patch Septic shock secondary to above Acute kidney injury due to acute tubular necrosis from infection Atrial fibrillation with rapid ventricular rate Acute CHF exacerbation, systolic dysfunction EF 35-40%. History of fibrillation anticoagulant Eliquis Diabetes mellitus type 2 History of stage III pancreatic cancer History hypertension Hyperlipidemia VTE prophylaxis as per primary GI prophylaxis Xarelto remains on hold and patient continues on IV heparin Full code Plan Due to runs of V. tach Cardizem has been discontinued patient is been started on IV push Lopressor Cardiology following Patient on IV heparin Started on IV lasix 40 mg Q12 hour Continue IV fluconazole IV Zosyn; ID following cultures Mechanical ventilator per counter stitcher Patient remains n.p.o. and unable to take his oral home medications at this time Patient to be started on TPN blood sugars are elevated patient was started on Lantus 10 units daily and will continue to monitor blood glucose remains elevated will increase Lantus continues on Accu-Cheks every 6 hours sliding scale insulin. Monitor electrolytes and renal function. The impression and plan of care has been dictated by Linda Keenan, Nurse Practitioner as directed. Dr. Cam MD I have performed a history and physical examination and medical decision making of this patient, discussed the same with the dictator, and agree with the dictators assessment and plan as written, documented as a scribe. Based on total visit time, I have performed more than 50% of this visit. Objective - Vital Signs Vital signs: Vital Signs Temp 99.3 F 08/17/24 12:00 Pulse 106 H 08/17/24 12:01 Resp 22 08/17/24 12:00 BP 101/63 08/17/24 04:45 Pulse Ox 94 L 08/17/24 12:00 FiO2 30 08/17/24 11:42 Intake & Output 08/16/24 08/17/24 08/17/24 18:59 06:59 18:59 Intake Total 2100.328 1054.780 881.344 Output Total 1690 1390 1530 Balance 410.328 -335.220 -648.656 Weight 141.5 kg Intake: IV 630 520 395 .9NS KVO 120 Fluconazole in NaCl,Iso- 100 50 Osm 200 mg In Saline 1 100ml.bag @ 100 mls/hr IVPB DAILY [facility] Rx#: [id number] Lactated Ringers 1,000 ml 180 20 @ 20 mls/hr IV .Q24H [facility] Rx#:[id number] Lactated Ringers 1,000 ml 150 @ 50 mls/hr IV .Q20H [facility] Rx#:[id number] Piperacillin-Tazobactam 3 200 100 125 .375 gm In Sodium Chloride 0.9% 100 ml @ 25 mls/hr IVPB Q8HR [facility] Rx# :[id number] Potassium Chloride 10 meq 400 100 In Water For Injection 1 100ml.bag @ 100 mls/hr IVPB Q1H [facility] Rx#: [id number] Intake, IV Titration 1470.328 534.780 486.344 Amount Heparin Sod,Pork in 0.45% 102.363 205.156 39.813 NaCl 25,000 unit In 0.45 % NaCl 1 250ml.bag @ 6. 826 UNITS/KG/HR 10 mls/hr IV .Q24H [facility] Rx#: [id number] Mvi, Adult No.4 with Vit 150 K 10 ml Trace (Conc-1Ml/ Dose) 1 ml Sodium Acetate 16 meq Potassium Acetate 14 meq Potassium Phosphate 21 mmol Magnesium Sulfate gm 0.75 gm Calcium Gluconate 1 gm In Amino Acids 5 %/ Dextrose 20 % 1,000 ml @ 50 mls/hr IV .[id number] [facility] Rx#:[id number] Mvi, Adult No.4 with Vit 240 K 10 ml Trace (Conc-1Ml/ Dose) 1 ml Sodium Acetate 30 meq Potassium Phosphate 15 mmol Magnesium Sulfate gm 1 gm Calcium Gluconate 1 gm In Amino Acids 5 %/ Dextrose 20 % 1,000 ml @ 30 mls/hr IV .Q24H [facility] Rx #:[id number] Mvi, Adult No.4 with Vit 100 100 150 K 10 ml Trace (Conc-1Ml/ Dose) 1 ml Sodium Acetate 30 meq Potassium Phosphate 15 mmol Magnesium Sulfate gm 1 gm Calcium Gluconate 1 gm In Amino Acids 5 %/ Dextrose 20 % 1,000 ml @ 50 mls/hr IV .[id number] [facility] Rx#:[id number] Mvi, Adult No.4 with Vit 30 K 10 ml Trace (Conc-1Ml/ Dose) 1 ml Sodium Acetate 30 meq Potassium Phosphate 15 mmol Magnesium Sulfate gm 1 gm Calcium Gluconate 1 gm In Amino Acids 5 %/ Dextrose 20 % 1,000 ml @ 65 mls/hr IV .BY DURATION [facility] Rx#:[id number] Norepinephrine 32 mg In 67.490 42.933 5.721 Sodium Chloride 0.9% 218 ml @ 0.03 MCG/KG/MIN 2.06 mls/hr IV .Q24H [facility] Rx#: [id number] Potassium Chloride 10 meq 300 In Water For Injection 1 100ml.bag @ 100 mls/hr IVPB Q1H [facility] Rx#: [id number] Potassium Chloride 10 meq 300 In Water For Injection 1 100ml.bag @ 100 mls/hr IVPB Q1HR [facility] Rx#: [id number] Sodium Acetate 30 meq 60 Potassium Phosphate 15 mmol Magnesium Sulfate gm 1 gm Calcium Gluconate 1 gm In Amino Acids 5 %/ Dextrose 20 % 1,000 ml @ 65 mls/hr IV .BY DURATION [facility] Rx#:[id number] propofoL 1,000 mg In 270.475 186.691 140.810 Empty Bag 1 bag @ 15 MCG/ KG/MIN 8.9 mls/hr IV . [id number] [facility] Rx#:[id number] Output: Gastric Drainage 110 200 Drainage 30 60 Right abdominal ABDIAZIZ drain 30 60 Urine 1550 1130 1530 Other: Voiding Method Indwelling Catheter Indwelling Catheter ABP, PAP, CO, CI - Last Documented Arterial Blood Pressure 130/47 - Labs CBC & Chem 7: 08/17/24 04:00 08/17/24 12:01 Labs: Abnormal Lab Results - Last 24 Hours (Table) 08/16/24 08/16/24 08/17/24 Range/Units 17:31 23:14 03:56 WBC (3.8-10.6) k/uL RBC (4.30-5.90) m/uL Hgb (13.0-17.5) gm/dL Hct (39.0-53.0) % MCH (25.0-35.0) pg MCHC (31.0-37.0) g/dL RDW (11.5-15.5) % Neutrophils # (Manual) (1.3-7.7) k/uL Monocytes # (Manual) (0-1.0) k/uL APTT (22.0-30.0) sec ABG pH (7.35-7.45) ABG pO2 (83-108) mmHg ABG Total CO2 (19-24) mmol/L Hemoglobin (13.0-17.5) gm/dL Chloride (98-107) mmol/L BUN (9-20) mg/dL Creatinine (0.66-1.25) mg/dL Glucose (74-99) mg/dL POC Glucose (mg/dL) 236 H 233 H 247 H (70-110) mg/dL Calcium (8.4-10.2) mg/dL AST (17-59) U/L Total Protein (6.3-8.2) g/dL Albumin (3.5-5.0) g/dL 08/17/24 08/17/24 08/17/24 Range/Units 04:00 04:00 05:05 WBC 18.0 H (3.8-10.6) k/uL RBC 3.14 L (4.30-5.90) m/uL Hgb 7.5 L (13.0-17.5) gm/dL Hct 25.9 L (39.0-53.0) % MCH 23.7 L (25.0-35.0) pg MCHC 28.7 L (31.0-37.0) g/dL RDW 19.9 H (11.5-15.5) % Neutrophils # (Manual) 15.10 H (1.3-7.7) k/uL Monocytes # (Manual) 1.08 H (0-1.0) k/uL APTT 36.8 H (22.0-30.0) sec ABG pH (7.35-7.45) ABG pO2 (83-108) mmHg ABG Total CO2 (19-24) mmol/L Hemoglobin (13.0-17.5) gm/dL Chloride 112 H (98-107) mmol/L BUN 39 H (9-20) mg/dL Creatinine 1.64 H (0.66-1.25) mg/dL Glucose 217 H (74-99) mg/dL POC Glucose (mg/dL) (70-110) mg/dL Calcium 7.3 L (8.4-10.2) mg/dL AST 15 L (17-59) U/L Total Protein 4.4 L (6.3-8.2) g/dL Albumin 1.8 L (3.5-5.0) g/dL 08/17/24 08/17/24 08/17/24 Range/Units 05:11 05:55 11:59 WBC (3.8-10.6) k/uL RBC (4.30-5.90) m/uL Hgb (13.0-17.5) gm/dL Hct (39.0-53.0) % MCH (25.0-35.0) pg MCHC (31.0-37.0) g/dL RDW (11.5-15.5) % Neutrophils # (Manual) (1.3-7.7) k/uL Monocytes # (Manual) (0-1.0) k/uL APTT (22.0-30.0) sec ABG pH 7.46 H (7.35-7.45) ABG pO2 70 L (83-108) mmHg ABG Total CO2 26 H (19-24) mmol/L Hemoglobin 7.3 L (13.0-17.5) gm/dL Chloride (98-107) mmol/L BUN (9-20) mg/dL Creatinine (0.66-1.25) mg/dL Glucose (74-99) mg/dL POC Glucose (mg/dL) 259 H 282 H (70-110) mg/dL Calcium (8.4-10.2) mg/dL AST (17-59) U/L Total Protein (6.3-8.2) g/dL Albumin (3.5-5.0) g/dL 08/17/24 Range/Units 12:01 WBC (3.8-10.6) k/uL RBC (4.30-5.90) m/uL Hgb (13.0-17.5) gm/dL Hct (39.0-53.0) % MCH (25.0-35.0) pg MCHC (31.0-37.0) g/dL RDW (11.5-15.5) % Neutrophils # (Manual) (1.3-7.7) k/uL Monocytes # (Manual) (0-1.0) k/uL APTT 53.0 H (22.0-30.0) sec ABG pH (7.35-7.45) ABG pO2 (83-108) mmHg ABG Total CO2 (19-24) mmol/L Hemoglobin (13.0-17.5) gm/dL Chloride (98-107) mmol/L BUN (9-20) mg/dL Creatinine (0.66-1.25) mg/dL Glucose (74-99) mg/dL POC Glucose (mg/dL) (70-110) mg/dL Calcium (8.4-10.2) mg/dL AST (17-59) U/L Total Protein (6.3-8.2) g/dL Albumin (3.5-5.0) g/dL Microbiology - Last 24 Hours (Table) 08/12/24 21:50 Blood Culture - Preliminary Blood Assessment and Plan Time with Patient: Less than 30
[2024-08-17 23:40] LABS: Glucose,Whole Blood 230 mg/dL (70-110)
[2024-08-18] MEDS: HYDROmorphone 0.5 MG/0.5 ML SYRINGE IVP PRN (00:34)
[2024-08-18 04:11] LABS: ABG Base Excess 1.1 mmol/L; ABG HCO3 26 mmol/L (21-25); ABG Oxygen Saturation 97.7 % (94-97); ABG PCO2 39 mmHg (35-45); ABG PH 7.43 (7.35-7.45); ABG PO2 88 mmHg (83-108); ABG TCO2 27 mmol/L (19-24)
[2024-08-18 04:14] LABS: Allen Test Performed? no
[2024-08-18 04:31] LABS: Anisocytosis Moderate; HCT 25.6 % (39.0-53.0); HGB 7.4 gm/dL (13.0-17.5); Hypochromasia Marked; MCH 24.2 pg (25.0-35.0); MCHC 29.1 g/dL (31.0-37.0); MCV 83.3 fL (80.0-100.0); Mean Platelet Volume 8.8; Microcytosis Slight; Platelet Count 335 k/uL (150-450); Poikilocytosis Moderate; RBC 3.08 m/uL (4.30-5.90); RDW 20.1 % (11.5-15.5); WBC 18.4 k/uL (3.8-10.6)
[2024-08-18 04:34] LABS: African American GFR (CKD) 53 (>60 ml/min/1.73 sqM); Anion Gap 6 mmol/L; Blood Urea Nitrogen 38 mg/dL (9-20); Calcium 7.5 mg/dL (8.4-10.2); Carbon Dioxide 24 mmol/L (22-30); Chloride 112 mmol/L (98-107); Glucose 227 mg/dL (74-99); Non-African American GFR(CKD) 46 (>60 ml/min/1.73 sqM); Phosphorus 3.3 mg/dL (2.5-4.5); Potassium 3.9 mmol/L (3.5-5.1); Sodium 142 mmol/L (137-145)
[2024-08-18] MEDS: POTASSIUM CHLORIDE 10 MEQ in WATER FOR INJECTION 1 100ML.BAG IVPB SCH (05:12)
[2024-08-18 06:02] LABS: Glucose,Whole Blood 275 mg/dL (70-110)
[2024-08-18] MEDS: INSULIN GLARGINE (LANTUS) 100 UNIT/ML SYR SQ SCH ×2 (06:23→20:36)
[2024-08-18 06:26] LABS: Eosinophils # (M) 0.18 k/uL (0-0.7); Lymphocytes # (M) 2.02 k/uL (1.0-4.8); Monocytes # (M) 0.37 k/uL (0-1.0); Neutrophils # (M) 15.82 k/uL (1.3-7.7); Neutrophils % (M) 86 %; Nucleated Red Blood Cells 0 /100 WBC (0-0); Total Cells Counted 100
--- NOTE | 2024-08-18 07:01 | XR ---
EXAMINATION TYPE: XR chest 1V portable DATE OF EXAM: 08/18/2024 CLINICAL INDICATION: Male, 79 years old with history of mechanical ventilation, progress study. TECHNIQUE: Single AP portable semiupright view of the chest is obtained. COMPARISON: Chest x-ray from one day earlier and older studies. FINDINGS: Stable endotracheal and orogastric tubes. Stable right internal jugular central venous cat heter. Persistent low lung volumes with central vascular congestion and small to borderline moderate size bi lateral pleural effusions. Associated bibasilar opacity redemonstrated. Surgical changes in the lumba r spine is partially imaged. IMPRESSION: Findings suggest continued CHF exacerbation/fluid overload state. Correlate clinically. N o significant change from one day earlier. [facility], , 08/18/2024 6:59 AM
--- NOTE | 2024-08-18 09:50 | P.PN ---
Subjective Patient is seen in follow-up for acute kidney injury. Renal function improving. Nonoliguric. On low-dose Levophed. Receiving TPN. Intubated. Vital signs - On vasopressor support. General: Resting in bed. HEENT: Intubated. LUNGS: Scattered rhonchi. HEART: Regular rate and rhythm. ABDOMEN: ABDIAZIZ drain noted. EXTREMITITES: 1+ edema. Objective - Vital Signs Vital signs: Vital Signs Temp 98.8 F 08/18/24 08:00 Pulse 105 H 08/18/24 09:15 Resp 19 08/18/24 09:15 BP 90/48 08/18/24 09:00 Pulse Ox 95 08/18/24 09:15 FiO2 30 08/18/24 08:15 Intake & Output 08/17/24 08/18/24 08/18/24 18:59 06:59 18:59 Intake Total 8913.169 6014.857 439.540 Output Total 2330 1715 250 Balance -910.922 -477.143 189.540 Weight 111.8 kg Intake: IV 670 185 345 .9NS KVO 220 160 45 Fluconazole in NaCl,Iso- 50 100 Osm 200 mg In Saline 1 100ml.bag @ 100 mls/hr IVPB DAILY [facility] Rx#: [id number] Mvi, Adult No.4 with Vit 100 K 10 ml Trace (Conc-1Ml/ Dose) 1 ml Sodium Acetate 16 meq Potassium Acetate 14 meq Potassium Phosphate 21 mmol Magnesium Sulfate gm 0.75 gm Calcium Gluconate 1 gm In Amino Acids 5 %/ Dextrose 20 % 1,000 ml @ 50 mls/hr IV .[id number] [facility] Rx#:[id number] Piperacillin-Tazobactam 3 200 25 100 .375 gm In Sodium Chloride 0.9% 100 ml @ 25 mls/hr IVPB Q8HR [facility] Rx# :[id number] Potassium Chloride 10 meq 200 In Water For Injection 1 100ml.bag @ 100 mls/hr IVPB Q1H [facility] Rx#: [id number] Intake, IV Titration 997.093 6356.857 94.540 Amount Heparin Sod,Pork in 0.45% 39.813 310.285 NaCl 25,000 unit In 0.45 % NaCl 1 250ml.bag @ 6. 826 UNITS/KG/HR 10 mls/hr IV .Q24H [facility] Rx#: [id number] Mvi, Adult No.4 with Vit 400 600 50 K 10 ml Trace (Conc-1Ml/ Dose) 1 ml Sodium Acetate 16 meq Potassium Acetate 14 meq Potassium Phosphate 21 mmol Magnesium Sulfate gm 0.75 gm Calcium Gluconate 1 gm In Amino Acids 5 %/ Dextrose 20 % 1,000 ml @ 50 mls/hr IV .[id number] [facility] Rx#:[id number] Mvi, Adult No.4 with Vit 150 K 10 ml Trace (Conc-1Ml/ Dose) 1 ml Sodium Acetate 30 meq Potassium Phosphate 15 mmol Magnesium Sulfate gm 1 gm Calcium Gluconate 1 gm In Amino Acids 5 %/ Dextrose 20 % 1,000 ml @ 50 mls/hr IV .[id number] [facility] Rx#:[id number] Norepinephrine 32 mg In 6.786 13.850 7.954 Sodium Chloride 0.9% 218 ml @ 0.03 MCG/KG/MIN 2.06 mls/hr IV .Q24H [facility] Rx#: [id number] propofoL 1,000 mg In 152.479 128.722 36.586 Empty Bag 1 bag @ 15 MCG/ KG/MIN 8.9 mls/hr IV . [id number] [facility] Rx#:[id number] Output: Drainage 45 Right abdominal ABDIAZIZ drain 45 Urine 2330 1670 250 Other: Voiding Method Indwelling Catheter Indwelling Catheter ABP, PAP, CO, CI - Last Documented Arterial Blood Pressure 93/35 - Labs CBC & Chem 7: 08/18/24 04:02 08/18/24 04:02 Labs: Abnormal Lab Results - Last 24 Hours (Table) 08/17/24 08/17/24 08/17/24 Range/Units 11:59 12:01 17:32 WBC (3.8-10.6) k/uL RBC (4.30-5.90) m/uL Hgb (13.0-17.5) gm/dL Hct (39.0-53.0) % MCH (25.0-35.0) pg MCHC (31.0-37.0) g/dL RDW (11.5-15.5) % Neutrophils # (Manual) (1.3-7.7) k/uL APTT 53.0 H (22.0-30.0) sec ABG HCO3 (21-25) mmol/L ABG Total CO2 (19-24) mmol/L ABG O2 Saturation (94-97) % Hemoglobin (13.0-17.5) gm/dL Chloride (98-107) mmol/L BUN (9-20) mg/dL Creatinine (0.66-1.25) mg/dL Glucose (74-99) mg/dL POC Glucose (mg/dL) 282 H 238 H (70-110) mg/dL Calcium (8.4-10.2) mg/dL 08/17/24 08/18/24 08/18/24 Range/Units 23:38 04:02 04:02 WBC 18.4 H (3.8-10.6) k/uL RBC 3.08 L (4.30-5.90) m/uL Hgb 7.4 L (13.0-17.5) gm/dL Hct 25.6 L (39.0-53.0) % MCH 24.2 L (25.0-35.0) pg MCHC 29.1 L (31.0-37.0) g/dL RDW 20.1 H (11.5-15.5) % Neutrophils # (Manual) 15.82 H (1.3-7.7) k/uL APTT (22.0-30.0) sec ABG HCO3 (21-25) mmol/L ABG Total CO2 (19-24) mmol/L ABG O2 Saturation (94-97) % Hemoglobin (13.0-17.5) gm/dL Chloride 112 H (98-107) mmol/L BUN 38 H (9-20) mg/dL Creatinine 1.45 H (0.66-1.25) mg/dL Glucose 227 H (74-99) mg/dL POC Glucose (mg/dL) 230 H (70-110) mg/dL Calcium 7.5 L (8.4-10.2) mg/dL 08/18/24 08/18/24 08/18/24 Range/Units 04:02 04:09 06:01 WBC (3.8-10.6) k/uL RBC (4.30-5.90) m/uL Hgb (13.0-17.5) gm/dL Hct (39.0-53.0) % MCH (25.0-35.0) pg MCHC (31.0-37.0) g/dL RDW (11.5-15.5) % Neutrophils # (Manual) (1.3-7.7) k/uL APTT 38.3 H (22.0-30.0) sec ABG HCO3 26 H (21-25) mmol/L ABG Total CO2 27 H (19-24) mmol/L ABG O2 Saturation 97.7 H (94-97) % Hemoglobin 7.5 L (13.0-17.5) gm/dL Chloride (98-107) mmol/L BUN (9-20) mg/dL Creatinine (0.66-1.25) mg/dL Glucose (74-99) mg/dL POC Glucose (mg/dL) 275 H (70-110) mg/dL Calcium (8.4-10.2) mg/dL Assessment and Plan Plan: Assessment: 1. Acute kidney injury secondary to ATN. Creatinine 1.5 in January 2024 and 2.5 this admission. Improved to 1.45 today. Nonoliguric. No hydronephrosis noted on CT. 2. Perforated gastric ulcer with pneumoperitoneum status post ex lap with closure of ulcer August 13, 2024. 3. Septic shock on vasopressor support. 4. Metabolic acidosis secondary to acute kidney injury and lactic acidosis. Improved. 5. Diabetes mellitus. 6. A-fib with RVR. On oral meds. Cardiology following. 7. Volume overload. Plan: Maintain Lasix. TPN per surgery. Replace potassium as needed. Wean FiO2 and vasopressors. Continue to monitor renal function and urine output.
[2024-08-18 10:44] LABS: Glucose,Whole Blood 230 mg/dL (70-110)
--- NOTE | 2024-08-18 15:03 | P.PN ---
Subjective Progress Note Date: 08/18/24 SURGICAL PROGRESS NOTE CHIEF COMPLAINT: Perforated gastric ulcer HISTORY OF PRESENT ILLNESS: Patient is postop day #5 status post exploratory laparotomy and modified Kiet patch for perforated gastric ulcer. Patient remains in the ICU intubated. Patient undergoing a sedation holiday today. He is on IV heparin for A-fib. ABDIAZIZ drain with 45 mL serous output. NG tube with 250 mL output. He did have a low-grade temp of 100.1 last night. White count remaining the same at 18.4. Hgb 7.4 creatinine improving 1.45 PHYSICAL EXAM: VITAL SIGNS: Reviewed. GENERAL: no acute distress. ABDOMEN: Soft. Nondistended. Incisional dressing clean dry and intact. ABDIAZIZ drain serous output NEUROLOGIC: Intubated and sedated ASSESSMENT: 1. Perforated gastric ulcer status post exploratory laparotomy and modified Kiet patch 2. Hypokalemia improved 3. A-fib on IV heparin PLAN: -Recommend upper GI after patient is extubated -Continue TPN for nutrition support -Continue ICU management -Continue supportive care -Continue NG tube to low intermittent suction -Keep n.p.o. -Continue antibiotics -Continue to monitor ABDIAZIZ drain -Continue IV Protonix -Continue to monitor hemoglobin Physician [employer] note has been reviewed by physician. Signing provider agrees with the documented findings, assessment, and plan of care. Attestation Patient seen and examined at bedside in the ICU. Status post laparotomy and modified Kiet patch repair for perforated gastric ulcer. ABDIAZIZ drain with serous output. Sedation holiday by ICU. IV heparin for atrial fibrillation. TPN for nutritional support at this time. When patient is extubated, plan for upper GI prior to advancing diet. Will continue nasogastric tube during intubation. Continue IV antibiotics. Alise Gallardo DO Objective - Vital Signs Vital signs: Vital Signs Temp 98.9 F 08/18/24 12:00 Pulse 112 H 08/18/24 13:00 Resp 20 08/18/24 13:00 BP 90/48 08/18/24 09:00 Pulse Ox 95 08/18/24 13:00 FiO2 30 08/18/24 12:00 Intake & Output 08/17/24 08/18/24 08/18/24 18:59 06:59 18:59 Intake Total 7509.450 9274.857 1983.014 Output Total 2330 1715 1275 Balance -910.922 -477.143 708.014 Weight 111.8 kg 111.8 kg Intake: IV 670 185 655 .9NS KVO 220 160 105 Fluconazole in NaCl,Iso- 50 100 Osm 200 mg In Saline 1 100ml.bag @ 100 mls/hr IVPB DAILY [facility] Rx#: [id number] Mvi, Adult No.4 with Vit 350 K 10 ml Trace (Conc-1Ml/ Dose) 1 ml Sodium Acetate 16 meq Potassium Acetate 14 meq Potassium Phosphate 21 mmol Magnesium Sulfate gm 0.75 gm Calcium Gluconate 1 gm In Amino Acids 5 %/ Dextrose 20 % 1,000 ml @ 75 mls/hr IV .[id number] [facility] Rx#:[id number] Piperacillin-Tazobactam 3 200 25 100 .375 gm In Sodium Chloride 0.9% 100 ml @ 25 mls/hr IVPB Q8HR [facility] Rx# :[id number] Potassium Chloride 10 meq 200 In Water For Injection 1 100ml.bag @ 100 mls/hr IVPB Q1H [facility] Rx#: [id number] Intake, IV Titration 240.081 5969.857 1328.014 Amount Heparin Sod,Pork in 0.45% 39.813 310.285 170.544 NaCl 25,000 unit In 0.45 % NaCl 1 250ml.bag @ 6. 826 UNITS/KG/HR 10 mls/hr IV .Q24H [facility] Rx#: [id number] Mvi, Adult No.4 with Vit 065 776 3359.167 K 10 ml Trace (Conc-1Ml/ Dose) 1 ml Sodium Acetate 16 meq Potassium Acetate 14 meq Potassium Phosphate 21 mmol Magnesium Sulfate gm 0.75 gm Calcium Gluconate 1 gm In Amino Acids 5 %/ Dextrose 20 % 1,000 ml @ 75 mls/hr IV .[id number] [facility] Rx#:[id number] Mvi, Adult No.4 with Vit 150 K 10 ml Trace (Conc-1Ml/ Dose) 1 ml Sodium Acetate 30 meq Potassium Phosphate 15 mmol Magnesium Sulfate gm 1 gm Calcium Gluconate 1 gm In Amino Acids 5 %/ Dextrose 20 % 1,000 ml @ 50 mls/hr IV .[id number] [facility] Rx#:[id number] Norepinephrine 32 mg In 6.786 13.850 16.581 Sodium Chloride 0.9% 218 ml @ 0.03 MCG/KG/MIN 2.06 mls/hr IV .Q24H [facility] Rx#: [id number] propofoL 1,000 mg In 152.479 128.722 46.722 Empty Bag 1 bag @ 15 MCG/ KG/MIN 8.9 mls/hr IV . [id number] [facility] Rx#:[id number] Output: Drainage 45 Right abdominal ABDIAZIZ drain 45 Urine 2330 1670 1275 Other: Voiding Method Indwelling Catheter Indwelling Catheter Indwelling Catheter ABP, PAP, CO, CI - Last Documented Arterial Blood Pressure 143/49 - Labs CBC & Chem 7: 08/18/24 04:02 08/18/24 04:02 Labs: Abnormal Lab Results - Last 24 Hours (Table) 08/17/24 08/17/24 08/18/24 Range/Units 17:32 23:38 04:02 WBC 18.4 H (3.8-10.6) k/uL RBC 3.08 L (4.30-5.90) m/uL Hgb 7.4 L (13.0-17.5) gm/dL Hct 25.6 L (39.0-53.0) % MCH 24.2 L (25.0-35.0) pg MCHC 29.1 L (31.0-37.0) g/dL RDW 20.1 H (11.5-15.5) % Neutrophils # (Manual) 15.82 H (1.3-7.7) k/uL APTT (22.0-30.0) sec ABG HCO3 (21-25) mmol/L ABG Total CO2 (19-24) mmol/L ABG O2 Saturation (94-97) % Hemoglobin (13.0-17.5) gm/dL Chloride (98-107) mmol/L BUN (9-20) mg/dL Creatinine (0.66-1.25) mg/dL Glucose (74-99) mg/dL POC Glucose (mg/dL) 238 H 230 H (70-110) mg/dL Calcium (8.4-10.2) mg/dL 08/18/24 08/18/24 08/18/24 Range/Units 04:02 04:02 04:09 WBC (3.8-10.6) k/uL RBC (4.30-5.90) m/uL Hgb (13.0-17.5) gm/dL Hct (39.0-53.0) % MCH (25.0-35.0) pg MCHC (31.0-37.0) g/dL RDW (11.5-15.5) % Neutrophils # (Manual) (1.3-7.7) k/uL APTT 38.3 H (22.0-30.0) sec ABG HCO3 26 H (21-25) mmol/L ABG Total CO2 27 H (19-24) mmol/L ABG O2 Saturation 97.7 H (94-97) % Hemoglobin 7.5 L (13.0-17.5) gm/dL Chloride 112 H (98-107) mmol/L BUN 38 H (9-20) mg/dL Creatinine 1.45 H (0.66-1.25) mg/dL Glucose 227 H (74-99) mg/dL POC Glucose (mg/dL) (70-110) mg/dL Calcium 7.5 L (8.4-10.2) mg/dL 08/18/24 08/18/24 08/18/24 Range/Units 06:01 10:43 10:45 WBC (3.8-10.6) k/uL RBC (4.30-5.90) m/uL Hgb (13.0-17.5) gm/dL Hct (39.0-53.0) % MCH (25.0-35.0) pg MCHC (31.0-37.0) g/dL RDW (11.5-15.5) % Neutrophils # (Manual) (1.3-7.7) k/uL APTT 47.1 H (22.0-30.0) sec ABG HCO3 (21-25) mmol/L ABG Total CO2 (19-24) mmol/L ABG O2 Saturation (94-97) % Hemoglobin (13.0-17.5) gm/dL Chloride (98-107) mmol/L BUN (9-20) mg/dL Creatinine (0.66-1.25) mg/dL Glucose (74-99) mg/dL POC Glucose (mg/dL) 275 H 230 H (70-110) mg/dL Calcium (8.4-10.2) mg/dL Microbiology - Last 24 Hours (Table) 08/12/24 21:50 Blood Culture - Final Blood
--- NOTE | 2024-08-18 15:50 | P.PN ---
Subjective Progress Note Date: 08/18/24 On 08/14/2024, this patient is being seen for a follow-up. The patient is postop day #2. The patient was found to have a perforated gastric ulcer with pneumoperitoneum. The patient underwent expected laparotomy abdominal washout and a modified Kiet patch. The patient is postop day #2. This morning, the patient remains intubated on mechanical ventilator. The patient on propofol running at 40 mcg/kg/min. Remains on active drinking at 125 cc an hour. Remains on norepinephrine running at 0.11 mcg/kg/min and vasopressin physiologic dose. On a mechanical ventilator, assist-control mode with rate of 18, tidal volume of 500, FiO2 30% with a PEEP of 5. Blood gas with a pH of 7.38 with a pCO2 of 33 and pO2 of 79. The patient's rhythm is atrial fibrillation. The patient has a ABDIAZIZ drain output is minimal at this point, the patient is covered with a combination of Zosyn and Diflucan. The patient received a total of 2 units of packed RBC postop. Blood work from today shows a WBC count of 26, hemoglobin 9.5 and a platelet count of 457. Sodium is at 139, BUN is 18 with a creatinine of 2.5 and a BUN of 71. Serum bicarbonate of 18. The patient does have an underlying acute on top of chronic kidney disease. He is febrile with a temperature of 101.7. He remains tachycardic. On 08/15/2024, the patient is being seen for a follow-up. This morning, the patient is still intubated on the mechanical ventilator. The patient sedated on propofol which is running at 40 mcg/kg/min. Remains on a mechanical ventilator assist-control mode at rate of 18, tidal volume of 500, FiO2 of 30% with a PEEP of 5. Blood gas from today showed a pH of 7.45 with a pCO2 of 35 and pO2 of 75. Chest x-ray from today shows ET tube in adequate location. Findings are consistent with CHF and volume overload and some worsening in the left basilar opacity/atelectasis. Hemodynamically, the patient remains in atrial fibrillation. Heart rate is under better control. The patient is on Cardizem drip that this has been weaned down to 2.5 mg an hour and the patient remains on IV heparin this was tolerated yesterday. At the same time, the patient remains on norepinephrine running at 0.1 mcg/kg/min and vasopressin physiologic dose. Lactated Ringer's running at a rate of 125 cc an hour and the patient is a positive fluid balance of 2.4 L. ABDIAZIZ output is minimal in the order of 5 to 10 cc over the past 12 hours. NG output is also minimal. Rest of the blood work showed a white cell count of 27.7, hemoglobin 8.5 and a platelet count of 407. The sodium levels at 141, BUN 58 with a creatinine of 2.1. Serum bicarb is at 23 and the chloride is 109. Glucose is 870. The blood cultures are still negat venkata.Echocardiogram showed a impaired LV function with ejection fraction of 35 to 40%. Right ventricular systolic pressure is at 54. 08/16/2024, patient is being seen for a follow-up in the intensive care unit. This morning, the patient remains intubated on mechanical ventilator. The patient sedated on propofol running at 40 mcg/kg/min. The patient is on assist- control mode with rate of 18, tidal volume of 500, FiO2 30% with a PEEP of 5. Blood gas showed a pH of 7.46 with a pCO2 of 37 and pO2 of 71. Chest x-ray from this morning shows worsening pulmonary vascular congestion and cardiomegaly with development of bilateral pleural effusions. There are some atelectatic changes in lung bases bilaterally. The patient was started on TPN which is currently running at 30 cc an hour. IV fluids are currently at KVO. Output from the NG tube is minimal in the order of 10 cc over the past 8 hours, output from the ABDIAZIZ is minimal in the order of 10 cc an hour. The patient is in atrial fibrill ation. The patient is having occasional PVCs. Remains on Cardizem drip at 2.5 mg an hour and the patient is also on IV heparin. Norepinephrine is running at 0.09 mcg/kg/min. The white cell count is improved and is currently down to 20 with a hemoglobin of 8 and a platelet count of 345. BUN is 49 with a creatinine of 1.87. Sodium levels at 142, potassium level is at 3.7, chloride is 110. Rem ains on a combination of Zosyn and Diflucan. On 08/17/2024, patient is being seen for a follow-up. This morning, the patient remains on propofol which is running at 40 mcg/kg/min. The patient was given sedation holiday yesterday. This was reported as the patient started having significant activities. The cardiac rhythm remains atrial fibrillation with controlled rate. This morning, the patient is calm and comfortable on propofol. He is on assist-control mode of mechanical ventilation at rate of 14, tidal volume of 500, FiO2 of 30% with a PEEP of 5. IV fluids are currently at KVO and the patient remains on TPN at a rate of 50 cc an hour. The patient is on low- dose norepinephrine running at 0.01 mcg/kg/min. The blood gas showed a pH of 7.46 with a pCO2 35 and pO2 of 70. Chest x-ray shows atelectatic changes and bilateral pleural effusions. NG tube output is in order of 100 cc over the past 8 hours. ABDIAZIZ output is in the order of 60 cc over the past 12 hours. The patient remains on IV heparin. The patient is off the Cardizem drip for now. The rest of the blood work shows a white cell count of 18, hemoglobin of 7.5 and a platelet count of 305. The sodium levels at 142, potassium level 3.8, chloride 112 and the bicarbonate is a 24. BUN 39 and a creatinine of 1.6. Blood sugars are elevated and the Lantus insulin dose will be further adjusted. No fever. No other significant events. Abdominal wound is dry clean and intact. 08/18/2024, the patient is being seen for a follow-up. She had another sedation holiday because of tachypnea and restlessness and asynchrony with a mechanical ventilator. This morning, he is on propofol. Will do a gradual propofol wean and use Precedex if needed. He is currently on propofol running at 20 mcg/kg/min. Remains on assist-control mode at rate of 14, tidal volume of 500, FiO2 of 30% with a PEEP of 5. Blood gas showed a pH of 7.43 with a pCO2 of 39 and pO2 of 88. Chest x-ray is unchanged and there is atelectatic change in the fusion lung base bilaterally. Remains on TPN for nutritional support with rate of 50 cc an hour. IV fluids are KVO. NG output is in the order of 200 cc over the past 24 hours. ABDIAZIZ output is in the order of 45 cc. Remains on norepinephrine at a dose of 0.01 mcg/kg/min. The fluid balance is -1.2 L over the past 24 hours and the patient remains on IV Lasix 40 mg every 12 hours. The patient is also on Zosyn and Diflucan. Afebrile. Hemodynamically stable with low-dose pressors. The white cell count is 18, hemoglobin 7.4 and a platelet count of 335. The BUN is 38 with a creatinine of 1.4. Sodium is at 142, bicarb is at 24. Blood sugars at 230 and Lantus dose has been modified. No other significant events overnight. Objective - Vital Signs Vital signs: Vital Signs Temp 98.9 F 08/18/24 12:00 Pulse 99 08/18/24 15:00 Resp 21 08/18/24 15:00 BP 121/80 08/18/24 15:00 Pulse Ox 95 08/18/24 15:00 FiO2 30 08/18/24 12:00 Intake & Output 08/17/24 08/18/24 08/18/24 18:59 06:59 18:59 Intake Total 2556.834 4664.857 2163.014 Output Total 2330 1715 1550 Balance -910.922 -477.143 613.014 Weight 111.8 kg 111.8 kg Intake: IV 670 185 835 .9NS KVO 220 160 135 Fluconazole in NaCl,Iso- 50 100 Osm 200 mg In Saline 1 100ml.bag @ 100 mls/hr IVPB DAILY [facility] Rx#: [id number] Mvi, Adult No.4 with Vit 500 K 10 ml Trace (Conc-1Ml/ Dose) 1 ml Sodium Acetate 16 meq Potassium Acetate 14 meq Potassium Phosphate 21 mmol Magnesium Sulfate gm 0.75 gm Calcium Gluconate 1 gm In Amino Acids 5 %/ Dextrose 20 % 1,000 ml @ 75 mls/hr IV .[id number] [facility] Rx#:[id number] Piperacillin-Tazobactam 3 200 25 100 .375 gm In Sodium Chloride 0.9% 100 ml @ 25 mls/hr IVPB Q8HR [facility] Rx# :[id number] Potassium Chloride 10 meq 200 In Water For Injection 1 100ml.bag @ 100 mls/hr IVPB Q1H [facility] Rx#: [id number] Intake, IV Titration 950.714 6596.857 1328.014 Amount Heparin Sod,Pork in 0.45% 39.813 310.285 170.544 NaCl 25,000 unit In 0.45 % NaCl 1 250ml.bag @ 6. 826 UNITS/KG/HR 10 mls/hr IV .Q24H [facility] Rx#: [id number] Mvi, Adult No.4 with Vit 826 167 1228.167 K 10 ml Trace (Conc-1Ml/ Dose) 1 ml Sodium Acetate 16 meq Potassium Acetate 14 meq Potassium Phosphate 21 mmol Magnesium Sulfate gm 0.75 gm Calcium Gluconate 1 gm In Amino Acids 5 %/ Dextrose 20 % 1,000 ml @ 75 mls/hr IV .[id number] [facility] Rx#:[id number] Mvi, Adult No.4 with Vit 150 K 10 ml Trace (Conc-1Ml/ Dose) 1 ml Sodium Acetate 30 meq Potassium Phosphate 15 mmol Magnesium Sulfate gm 1 gm Calcium Gluconate 1 gm In Amino Acids 5 %/ Dextrose 20 % 1,000 ml @ 50 mls/hr IV .[id number] [facility] Rx#:[id number] Norepinephrine 32 mg In 6.786 13.850 16.581 Sodium Chloride 0.9% 218 ml @ 0.03 MCG/KG/MIN 2.06 mls/hr IV .Q24H [facility] Rx#: [id number] propofoL 1,000 mg In 152.479 128.722 46.722 Empty Bag 1 bag @ 15 MCG/ KG/MIN 8.9 mls/hr IV . [id number] [facility] Rx#:[id number] Output: Drainage 45 Right abdominal ABDIAZIZ drain 45 Urine 2330 1670 1550 Other: Voiding Method Indwelling Catheter Indwelling Catheter Indwelling Catheter ABP, PAP, CO, CI - Last Documented Arterial Blood Pressure 125/46 - Exam GENERAL EXAM: Intubated, sedated 79-year-old male patient, on mechanical venti lator. Calm and comfortable on propofol. HEAD: Normocephalic. EYES: Sluggish reaction of pupils, equal size. NOSE: Clear with pink turbinates. THROAT: Oral endotracheal and gastric tube secured in place. No erythema or exudates. NECK: No masses, no JVD. Right IJ triple-lumen catheter in place. CHEST: No chest wall deformity. LUNGS: Equal air entry with no crackles, wheeze, rhonchi or dullness. CVS: S1 and S irregular consistent with atrial fibrillation with no audible murmur, irregular rhythm. The rate is controlled. No significant ectopy is on today's evaluation. ABDOMEN: Abdominal dressing dry and intact. ABDIAZIZ drain in place. No hepatosplenomegaly. SPINE: No scoliosis or deformity SKIN: No rashes CENTRAL NERVOUS SYSTEM: Sedated, tone is normal in all 4 extremities. EXTREMITIES: Left radial arterial line in place. There is no peripheral edema. No clubbing, no cyanosis. Peripheral pulses are intact. - Labs CBC & Chem 7: 08/18/24 04:02 08/18/24 04:02 Labs: Abnormal Lab Results - Last 24 Hours (Table) 08/17/24 08/17/24 08/18/24 Range/Units 17:32 23:38 04:02 WBC 18.4 H (3.8-10.6) k/uL RBC 3.08 L (4.30-5.90) m/uL Hgb 7.4 L (13.0-17.5) gm/dL Hct 25.6 L (39.0-53.0) % MCH 24.2 L (25.0-35.0) pg MCHC 29.1 L (31.0-37.0) g/dL RDW 20.1 H (11.5-15.5) % Neutrophils # (Manual) 15.82 H (1.3-7.7) k/uL APTT (22.0-30.0) sec ABG HCO3 (21-25) mmol/L ABG Total CO2 (19-24) mmol/L ABG O2 Saturation (94-97) % Hemoglobin (13.0-17.5) gm/dL Chloride (98-107) mmol/L BUN (9-20) mg/dL Creatinine (0.66-1.25) mg/dL Glucose (74-99) mg/dL POC Glucose (mg/dL) 238 H 230 H (70-110) mg/dL Calcium (8.4-10.2) mg/dL 08/18/24 08/18/24 08/18/24 Range/Units 04:02 04:02 04:09 WBC (3.8-10.6) k/uL RBC (4.30-5.90) m/uL Hgb (13.0-17.5) gm/dL Hct (39.0-53.0) % MCH (25.0-35.0) pg MCHC (31.0-37.0) g/dL RDW (11.5-15.5) % Neutrophils # (Manual) (1.3-7.7) k/uL APTT 38.3 H (22.0-30.0) sec ABG HCO3 26 H (21-25) mmol/L ABG Total CO2 27 H (19-24) mmol/L ABG O2 Saturation 97.7 H (94-97) % Hemoglobin 7.5 L (13.0-17.5) gm/dL Chloride 112 H (98-107) mmol/L BUN 38 H (9-20) mg/dL Creatinine 1.45 H (0.66-1.25) mg/dL Glucose 227 H (74-99) mg/dL POC Glucose (mg/dL) (70-110) mg/dL Calcium 7.5 L (8.4-10.2) mg/dL 08/18/24 08/18/24 08/18/24 Range/Units 06:01 10:43 10:45 WBC (3.8-10.6) k/uL RBC (4.30-5.90) m/uL Hgb (13.0-17.5) gm/dL Hct (39.0-53.0) % MCH (25.0-35.0) pg MCHC (31.0-37.0) g/dL RDW (11.5-15.5) % Neutrophils # (Manual) (1.3-7.7) k/uL APTT 47.1 H (22.0-30.0) sec ABG HCO3 (21-25) mmol/L ABG Total CO2 (19-24) mmol/L ABG O2 Saturation (94-97) % Hemoglobin (13.0-17.5) gm/dL Chloride (98-107) mmol/L BUN (9-20) mg/dL Creatinine (0.66-1.25) mg/dL Glucose (74-99) mg/dL POC Glucose (mg/dL) 275 H 230 H (70-110) mg/dL Calcium (8.4-10.2) mg/dL Microbiology - Last 24 Hours (Table) 08/12/24 21:50 Blood Culture - Final Blood Assessment and Plan Plan: Acute abdominal pain secondary to perforated gastric ulcer with pneumoperitoneum. Status post exploratory laparotomy, abdominal washout and modified Kiet patch. Postoperative day # 6 Acute sepsis with hypotension secondary to above, patient remains hypotensive and the patient continues to have leukocytosis. Covered with a combination of Zosyn and Diflucan. Has been adequately fluid resuscitated. The patient is currently on low-dose norepinephrine. Vasopressin has been discontinued Hypotension requiring pressor support, still on low-dose norepinephrine Acute hypoxic respiratory failure secondary to above. This is an expected outcome of gastric perforation and sepsis. The patient remains intubated on the mechanical ventilator and the patient has developed bilateral pleural effusion and atelectatic change in lung bases along with pulm vessel congestion. Systolic heart failure with ejection fraction of 35% Acute blood loss anemia, received 2 units of packed red blood cells, hemoglobin stable at 7.4 Leukocytosis secondary to above,, white cell count remains elevated Acute kidney injury secondary to above on top of chronic kidney disease, improving Chronic atrial fibrillation, rate controlled on IV Lopressor 5 mg every 8 hours and IV heparin History of hypertension Non-smoker History of prostate cancer Plan: Continue vent support no changes Change IV fluids to KVO Continue IV heparin watch for any signs of bleeding The patient remains on pressors and the patient is on low-dose norepinephrine Monitor renal function, improving Monitor white cell count, improving Monitor cultures Continue Zosyn and Diflucan Continue Lasix 40 mg IV every 12 hours Keep the patient sedated on propofol, give the patient a sedation holiday and use Precedex if needed TPN at a rate of 50 cc an hour Monitor the NG output and the output from the ABDIAZIZ drain Change Lantus to 20 units twice daily along with a sliding scale insulin coverage Sedation holiday and assess mentation We will continue to follow and make further recommendations based on his clinical status Critical care evaluation, 33 minutes. Time with Patient: Greater than 30
--- NOTE | 2024-08-18 16:10 | P.PN ---
Subjective Progress Note Date: 08/18/24 This is a 79-year-old male who was monitored in the intensive care unit. He is postoperative day #2 repair of perforated gastric ulcer with Kiet patch. He remains sedated and intubated on the mechanical ventilator. Patient has been febrile with a Tmax of 101.7 axillary in the last 24 hours. He was noted to be in atrial fibrillation with RVR and has been started on IV Cardizem. Eliquis remains on hold postsurgically. Patient continues on multiple antibiotic therapy including IV fluconazole IV Zosyn with infectious disease following closely. He is currently sedated with propofol he is requiring Levophed and vasopressin support. Blood culture remains negative so far. Labs reveal a white blood cell complement 3.7, hemoglobin 9.5, sodium 139, potassium 4.1, BUN of 31 creatinine 3.52 calcium of 6.8 chest x-ray today reveals continued CHF exacerbation and fluid overload state with no significant for 1 day earlier. Patient does have hypotensive bowel sounds. 08/15/2024 Patient is evaluated in the ICU he remains on the mechanical ventilator with PEEP of 5 and FiO2 of 30%. He is postoperative day #3 repair of perforated gastric ulcer with kiet patch. Currently sedated with propofol. Chest xray findings suggest continued CHF exacerbation fluid over load state. worsening left basilar opacity could reflect acute infiltrate and or atelectasis. Correlate clinically. White blood cell count 27.7, hgb 8.5, sodium 141, potassium 3.9, BUN 58, creatinine 2.10. Magnesium 1.8. 08/16/2024 Patient is evaluated today in the intensive care unit he is postoperative day #4 to get with Kiet patch. Patient remains sedated with propofol. He is currently intubated and on mechanical ventilator with a PEEP of 5 and FiO2 of 30%. Chest x-ray today reveals worsening CHF. His white blood cell count today is 20.9, hemoglobin 8, BUN of 49 creatinine of 1.87. Patient remains on room. He was having runs of V. tach and was taken off IV Cardizem started on an oral metoprolol on an outpatient basis. his heart rate is controlled. He continues on IV Zosyn. He remains on IV fluconazole. Blood sugars are elevated after the start of TPN. He was started on a small dose of Lantus and we will continue to monitor and make adjustments as needed. 08/17/2024 Patient is evaluated today in the ICU. He remains sedated and intubated on the mechanical ventilator. PEEP of 5 and FiO2 of 40%. Patient currently undergoing sedation holiday and has not been responsive. Patient received IV lasix x 1 and has since been started on IV lasix 40 mg [id number]. Patient remains on IV heparin. Continues on IV metoprolol and no further reports of ectopi noted. White blood cell count 18.0, hgb 7.5, BUN 39, creatinine 1.64. Blood glucose remains elevated in the 200s. Chest xray today reveals continued CHF. 08/18/2024 Patient is evaluated in follow-up in the intensive care unit. He remains sedated and intubated on mechanical ventilator. Patient is a PEEP of 5 and FiO2 of 40%. Labs today reveals white blood cell count 18.4, hgb 7.4, BUN 38, creatinine 1.45. Blood glucose in the 200s. Patient remains on IV fluconazole and IV zosyn. Remains on IV heparin. Patient on small dose of levo. Continues on TPN. Patient had low grade fever 100.1 overnight. To complete a review of systems as patient is currently intubated and sedated in the intensive care unit PHYSICAL EXAMINATION: GENERAL: The patient is sedated, not in any acute distress. Well developed, well nourished. Pale HEENT: Pupils are round and equally reacting to light. EOMI. No scleral icterus. No conjunctival pallor. Normocephalic, atraumatic. No pharyngeal erythema. No thyromegaly. CARDIOVASCULAR: S1 and S2 present. No murmurs, rubs, or gallops. PULMONARY: Chest is clear to auscultation, no wheezing or crackles. ABDOMEN: Soft, nontender, nondistended, Hypoactive bowel sounds. No palpable organomegaly. Mid line incision intact no surrounding erythema or drainage MUSCULOSKELETAL: No joint swelling or deformity. EXTREMITIES: No cyanosis, clubbing, or pedal edema. NEUROLOGICAL: Gross neurological examination did not reveal any focal deficits. SKIN: No rashes. Assessment and plan Perforated gastric ulcer pneumoperitoneum postoperative day #6 surgical repair with Kiet patch Septic shock secondary to above Acute kidney injury due to acute tubular necrosis from infection Atrial fibrillation with rapid ventricular rate Acute CHF exacerbation, systolic dysfunction EF 35-40%. History of fibrillation anticoagulant Eliquis Diabetes mellitus type 2 History of stage III pancreatic cancer History hypertension Hyperlipidemia VTE prophylaxis as per primary GI prophylaxis Xarelto remains on hold and patient continues on IV heparin Full code Plan Due to runs of V. tach Cardizem has been discontinued patient is been started on IV push Lopressor Cardiology following Patient on IV heparin Started on IV lasix 40 mg Q12 hour Continue IV fluconazole IV Zosyn; ID following cultures Mechanical ventilator per machine heel sprayer Patient remains n.p.o. and unable to take his oral home medications at this time Patient to be started on TPN blood sugars are elevated patient was started on Lantus 10 units daily and will continue to monitor blood glucose remains elevated will increase Lantus continues on Accu-Cheks every 6 hours sliding scale insulin. Monitor electrolytes and renal function. The impression and plan of care has been dictated by Linda Keenan, Nurse Practitioner as directed. Dr. Cam MD I have performed a history and physical examination and medical decision making of this patient, discussed the same with the dictator, and agree with the dictators assessment and plan as written, documented as a scribe. Based on total visit time, I have performed more than 50% of this visit. Objective - Vital Signs Vital signs: Vital Signs Temp 98.9 F 08/18/24 12:00 Pulse 104 H 08/18/24 15:58 Resp 21 08/18/24 15:00 BP 121/80 08/18/24 15:00 Pulse Ox 95 08/18/24 15:00 FiO2 30 08/18/24 15:58 Intake & Output 08/17/24 08/18/24 08/18/24 18:59 06:59 18:59 Intake Total 2383.606 4489.857 2166.001 Output Total 2330 1715 1550 Balance -910.922 -477.143 616.001 Weight 111.8 kg 111.8 kg Intake: IV 670 185 835 .9NS KVO 220 160 135 Fluconazole in NaCl,Iso- 50 100 Osm 200 mg In Saline 1 100ml.bag @ 100 mls/hr IVPB DAILY [facility] Rx#: [id number] Mvi, Adult No.4 with Vit 500 K 10 ml Trace (Conc-1Ml/ Dose) 1 ml Sodium Acetate 16 meq Potassium Acetate 14 meq Potassium Phosphate 21 mmol Magnesium Sulfate gm 0.75 gm Calcium Gluconate 1 gm In Amino Acids 5 %/ Dextrose 20 % 1,000 ml @ 75 mls/hr IV .[id number] [facility] Rx#:[id number] Piperacillin-Tazobactam 3 200 25 100 .375 gm In Sodium Chloride 0.9% 100 ml @ 25 mls/hr IVPB Q8HR [facility] Rx# :[id number] Potassium Chloride 10 meq 200 In Water For Injection 1 100ml.bag @ 100 mls/hr IVPB Q1H [facility] Rx#: [id number] Intake, IV Titration 604.069 6055.857 1331.001 Amount Heparin Sod,Pork in 0.45% 39.813 310.285 170.544 NaCl 25,000 unit In 0.45 % NaCl 1 250ml.bag @ 6. 826 UNITS/KG/HR 10 mls/hr IV .Q24H [facility] Rx#: [id number] Mvi, Adult No.4 with Vit 663 180 6340.167 K 10 ml Trace (Conc-1Ml/ Dose) 1 ml Sodium Acetate 16 meq Potassium Acetate 14 meq Potassium Phosphate 21 mmol Magnesium Sulfate gm 0.75 gm Calcium Gluconate 1 gm In Amino Acids 5 %/ Dextrose 20 % 1,000 ml @ 75 mls/hr IV .[id number] [facility] Rx#:[id number] Mvi, Adult No.4 with Vit 150 K 10 ml Trace (Conc-1Ml/ Dose) 1 ml Sodium Acetate 30 meq Potassium Phosphate 15 mmol Magnesium Sulfate gm 1 gm Calcium Gluconate 1 gm In Amino Acids 5 %/ Dextrose 20 % 1,000 ml @ 50 mls/hr IV .[id number] [facility] Rx#:[id number] Norepinephrine 32 mg In 6.786 13.850 19.568 Sodium Chloride 0.9% 218 ml @ 0.03 MCG/KG/MIN 2.06 mls/hr IV .Q24H [facility] Rx#: [id number] propofoL 1,000 mg In 152.479 128.722 46.722 Empty Bag 1 bag @ 15 MCG/ KG/MIN 8.9 mls/hr IV . [id number] [facility] Rx#:[id number] Output: Drainage 45 Right abdominal ABDIAZIZ drain 45 Urine 2330 1670 1550 Other: Voiding Method Indwelling Catheter Indwelling Catheter Indwelling Catheter ABP, PAP, CO, CI - Last Documented Arterial Blood Pressure 125/46 - Labs CBC & Chem 7: 08/18/24 04:02 08/18/24 04:02 Labs: Abnormal Lab Results - Last 24 Hours (Table) 08/17/24 08/17/24 08/18/24 Range/Units 17:32 23:38 04:02 WBC 18.4 H (3.8-10.6) k/uL RBC 3.08 L (4.30-5.90) m/uL Hgb 7.4 L (13.0-17.5) gm/dL Hct 25.6 L (39.0-53.0) % MCH 24.2 L (25.0-35.0) pg MCHC 29.1 L (31.0-37.0) g/dL RDW 20.1 H (11.5-15.5) % Neutrophils # (Manual) 15.82 H (1.3-7.7) k/uL APTT (22.0-30.0) sec ABG HCO3 (21-25) mmol/L ABG Total CO2 (19-24) mmol/L ABG O2 Saturation (94-97) % Hemoglobin (13.0-17.5) gm/dL Chloride (98-107) mmol/L BUN (9-20) mg/dL Creatinine (0.66-1.25) mg/dL Glucose (74-99) mg/dL POC Glucose (mg/dL) 238 H 230 H (70-110) mg/dL Calcium (8.4-10.2) mg/dL 08/18/24 08/18/24 08/18/24 Range/Units 04:02 04:02 04:09 WBC (3.8-10.6) k/uL RBC (4.30-5.90) m/uL Hgb (13.0-17.5) gm/dL Hct (39.0-53.0) % MCH (25.0-35.0) pg MCHC (31.0-37.0) g/dL RDW (11.5-15.5) % Neutrophils # (Manual) (1.3-7.7) k/uL APTT 38.3 H (22.0-30.0) sec ABG HCO3 26 H (21-25) mmol/L ABG Total CO2 27 H (19-24) mmol/L ABG O2 Saturation 97.7 H (94-97) % Hemoglobin 7.5 L (13.0-17.5) gm/dL Chloride 112 H (98-107) mmol/L BUN 38 H (9-20) mg/dL Creatinine 1.45 H (0.66-1.25) mg/dL Glucose 227 H (74-99) mg/dL POC Glucose (mg/dL) (70-110) mg/dL Calcium 7.5 L (8.4-10.2) mg/dL 08/18/24 08/18/24 08/18/24 Range/Units 06:01 10:43 10:45 WBC (3.8-10.6) k/uL RBC (4.30-5.90) m/uL Hgb (13.0-17.5) gm/dL Hct (39.0-53.0) % MCH (25.0-35.0) pg MCHC (31.0-37.0) g/dL RDW (11.5-15.5) % Neutrophils # (Manual) (1.3-7.7) k/uL APTT 47.1 H (22.0-30.0) sec ABG HCO3 (21-25) mmol/L ABG Total CO2 (19-24) mmol/L ABG O2 Saturation (94-97) % Hemoglobin (13.0-17.5) gm/dL Chloride (98-107) mmol/L BUN (9-20) mg/dL Creatinine (0.66-1.25) mg/dL Glucose (74-99) mg/dL POC Glucose (mg/dL) 275 H 230 H (70-110) mg/dL Calcium (8.4-10.2) mg/dL Microbiology - Last 24 Hours (Table) 08/12/24 21:50 Blood Culture - Final Blood Assessment and Plan Time with Patient: Less than 30
[2024-08-18 17:41] LABS: Glucose,Whole Blood 320 mg/dL (70-110)
[2024-08-18 17:41] LABS: Glucose,Whole Blood 340 mg/dL (70-110)
[2024-08-18 20:33] LABS: Glucose,Whole Blood 289 mg/dL (70-110)
--- NOTE | 2024-08-18 22:23 | PN ---
PROGRESS NOTE SUBJECTIVE: Clinton is a 79-year-old gentleman admitted to hospital with perforated gastric ulcer and we are following because of atrial fibrillation with rapid ventricular rate. He remains in atrial fibrillation with a heart rate of around 100 beats per minute. OBJECTIVE: VITAL SIGNS: Blood pressure is 114/45, respiratory rate is 18. CHEST: Reveals diminished air entry at the bases. HEART: Reveals first and second heart sounds, irregular rhythm. ABDOMEN: Soft. EXTREMITIES: Reveals mild edema bilaterally. Labs show a potassium of 3.9, creatinine of 1.4. Hemoglobin is 7.4. ASSESSMENT: 1. Persistent atrial fibrillation. 2. Perforated gastric ulcer, status post surgery. 3. Anemia. PLAN: The patient will continue the heparin and beta blockers. Heparin has been okayed by Surgery. MMILANAL / HERBERTN: [id number] /
[2024-08-18 23:55] LABS: Glucose,Whole Blood 274 mg/dL (70-110)
[2024-08-19 04:32] LABS: ABG Base Excess 1.5 mmol/L; ABG HCO3 26 mmol/L (21-25); ABG PCO2 39 mmHg (35-45); ABG PH 7.43 (7.35-7.45); ABG PO2 95 mmHg (83-108); ABG TCO2 27 mmol/L (19-24)
[2024-08-19 04:33] LABS: Allen Test Performed? No
[2024-08-19 05:14] LABS: Anisocytosis Moderate; HCT 25.2 % (39.0-53.0); HGB 7.3 gm/dL (13.0-17.5); Hypochromasia Marked; MCH 24.2 pg (25.0-35.0); MCHC 28.9 g/dL (31.0-37.0); MCV 83.7 fL (80.0-100.0); Mean Platelet Volume 8.7; Microcytosis Slight; Platelet Count 319 k/uL (150-450); Poikilocytosis Slight; RBC 3.01 m/uL (4.30-5.90); RDW 20.5 % (11.5-15.5); WBC 17.2 k/uL (3.8-10.6)
[2024-08-19 05:38] LABS: ALT 11 U/L (4-49); AST 21 U/L (17-59); African American GFR (CKD) 53 (>60 ml/min/1.73 sqM); Albumin 1.9 g/dL (3.5-5.0); Alkaline Phosphatase 108 U/L (38-126); Anion Gap 7 mmol/L; Blood Urea Nitrogen 37 mg/dL (9-20); Calcium 7.8 mg/dL (8.4-10.2); Carbon Dioxide 26 mmol/L (22-30); Chloride 110 mmol/L (98-107); Glucose 238 mg/dL (74-99); Non-African American GFR(CKD) 46 (>60 ml/min/1.73 sqM); Phosphorus 3.8 mg/dL (2.5-4.5); Sodium 143 mmol/L (137-145); Total Bilirubin 0.5 mg/dL (0.2-1.3); Total Protein 4.7 g/dL (6.3-8.2)
[2024-08-19 05:48] LABS: Glucose,Whole Blood 281 mg/dL (70-110)
--- NOTE | 2024-08-19 07:13 | XR ---
EXAMINATION TYPE: XR chest 1V portable DATE OF EXAM: 08/19/2024 4:38 AM COMPARISON: Multiple radiographs, with the most recent on 08/18/2024. TECHNIQUE: XR chest 1V portable Portable AP radiograph of the chest. CLINICAL INDICATION:Male, 79 years old with history of tube placement; FINDINGS: Lungs/Pleura: Persistent low lung volumes with small left and moderate right pleural effusions. Pulmonary vascularity: Similar central vascular congestion. Heart/mediastinum: Cardiomediastinal silhouette is enlarged and stable. Musculoskeletal: No acute osseous pathology. Multilevel degenerative disc disease. Other findings: None Lines/Tubes: Endotracheal tube with distal tip 3.2 cm above the shakira Nasogastric tube with its distal tip and side-port projecting under the diaphragm. Stable right IJ central venous catheter at the low SVC. IMPRESSION: 1. Overall similar finding suggestive continued CHF exacerbation/fluid overload state. 2. Stable support lines and tubes. [facility], , 08/19/2024 7:10 AM
--- NOTE | 2024-08-19 09:50 | P.PN ---
Subjective Patient is seen in follow-up for acute kidney injury. Renal function stable. Nonoliguric. On Levophed. Receiving TPN. Intubated. Vital signs - On vasopressor support. General: Resting in bed. HEENT: Intubated. LUNGS: Scattered rhonchi. HEART: Regular rate and rhythm. ABDOMEN: ABDIAZIZ drain noted. EXTREMITITES: 2+ edema. Objective - Vital Signs Vital signs: Vital Signs Temp 99.8 F H 08/19/24 08:00 Pulse 98 08/19/24 09:04 Resp 16 08/19/24 09:00 BP 108/62 08/19/24 09:00 Pulse Ox 96 08/19/24 09:00 FiO2 30 08/19/24 09:00 Intake & Output 08/18/24 08/19/24 08/19/24 18:59 06:59 18:59 Intake Total 2538.005 1433.923 325 Output Total 2230 1980 607 Balance 308.005 -546.077 -282 Weight 111.8 kg 113.6 kg Intake: IV 1205 730 245 .9NS KVO 180 180 35 Fluconazole in NaCl,Iso- 100 Osm 200 mg In Saline 1 100ml.bag @ 100 mls/hr IVPB DAILY [facility] Rx#: [id number] Mvi, Adult No.4 with Vit 725 450 160 K 10 ml Trace (Conc-1Ml/ Dose) 1 ml Sodium Acetate 16 meq Potassium Acetate 14 meq Potassium Phosphate 21 mmol Magnesium Sulfate gm 0.75 gm Calcium Gluconate 1 gm In Amino Acids 5 %/ Dextrose 20 % 1,000 ml @ 75 mls/hr IV .[id number] [facility] Rx#:[id number] Piperacillin-Tazobactam 3 200 100 50 .375 gm In Sodium Chloride 0.9% 100 ml @ 25 mls/hr IVPB Q8HR [facility] Rx# :[id number] Intake, IV Titration 1333.005 703.923 80 Amount Heparin Sod,Pork in 0.45% 170.544 269.953 NaCl 25,000 unit In 0.45 % NaCl 1 250ml.bag @ 6. 826 UNITS/KG/HR 10 mls/hr IV .Q24H [facility] Rx#: [id number] Mvi, Adult No.4 with Vit 1094.167 K 10 ml Trace (Conc-1Ml/ Dose) 1 ml Sodium Acetate 16 meq Potassium Acetate 14 meq Potassium Phosphate 21 mmol Magnesium Sulfate gm 0.75 gm Calcium Gluconate 1 gm In Amino Acids 5 %/ Dextrose 20 % 1,000 ml @ 75 mls/hr IV .[id number] [facility] Rx#:[id number] Norepinephrine 32 mg In 21.572 33.970 Sodium Chloride 0.9% 218 ml @ 0.03 MCG/KG/MIN 2.06 mls/hr IV .Q24H [facility] Rx#: [id number] Sodium Acetate 16 meq 400 80 Potassium Acetate 14 meq Potassium Phosphate 9 mmol Magnesium Sulfate gm 0.5 gm Calcium Gluconate 1 gm In Amino Acid 5%- D15w 1,000 ml @ 80 mls/hr IV .BY DURATION [facility] Rx#: [id number] propofoL 1,000 mg In 46.722 Empty Bag 1 bag @ 15 MCG/ KG/MIN 8.9 mls/hr IV . [id number] [facility] Rx#:[id number] Oral 0 Output: Gastric Drainage 250 100 Drainage 50 10 2 Right abdominal ABDIAZIZ drain 50 10 2 Urine 1930 1870 605 Other: Voiding Method Indwelling Catheter Indwelling Catheter # Voids 100 ABP, PAP, CO, CI - Last Documented Arterial Blood Pressure 125/53 - Labs CBC & Chem 7: 08/19/24 04:36 08/19/24 04:36 Labs: Abnormal Lab Results - Last 24 Hours (Table) 08/18/24 08/18/24 08/18/24 Range/Units 10:43 10:45 17:38 WBC (3.8-10.6) k/uL RBC (4.30-5.90) m/uL Hgb (13.0-17.5) gm/dL Hct (39.0-53.0) % MCH (25.0-35.0) pg MCHC (31.0-37.0) g/dL RDW (11.5-15.5) % APTT 47.1 H (22.0-30.0) sec ABG HCO3 (21-25) mmol/L ABG Total CO2 (19-24) mmol/L ABG O2 Saturation (94-97) % Hemoglobin (13.0-17.5) gm/dL Chloride (98-107) mmol/L BUN (9-20) mg/dL Creatinine (0.66-1.25) mg/dL Glucose (74-99) mg/dL POC Glucose (mg/dL) 230 H 320 H (70-110) mg/dL Calcium (8.4-10.2) mg/dL Total Protein (6.3-8.2) g/dL Albumin (3.5-5.0) g/dL 08/18/24 08/18/24 08/18/24 Range/Units 17:39 20:31 23:48 WBC (3.8-10.6) k/uL RBC (4.30-5.90) m/uL Hgb (13.0-17.5) gm/dL Hct (39.0-53.0) % MCH (25.0-35.0) pg MCHC (31.0-37.0) g/dL RDW (11.5-15.5) % APTT (22.0-30.0) sec ABG HCO3 (21-25) mmol/L ABG Total CO2 (19-24) mmol/L ABG O2 Saturation (94-97) % Hemoglobin (13.0-17.5) gm/dL Chloride (98-107) mmol/L BUN (9-20) mg/dL Creatinine (0.66-1.25) mg/dL Glucose (74-99) mg/dL POC Glucose (mg/dL) 340 H 289 H 274 H (70-110) mg/dL Calcium (8.4-10.2) mg/dL Total Protein (6.3-8.2) g/dL Albumin (3.5-5.0) g/dL 08/19/24 08/19/24 08/19/24 Range/Units 04:24 04:36 04:36 WBC (3.8-10.6) k/uL RBC (4.30-5.90) m/uL Hgb (13.0-17.5) gm/dL Hct (39.0-53.0) % MCH (25.0-35.0) pg MCHC (31.0-37.0) g/dL RDW (11.5-15.5) % APTT 36.8 H (22.0-30.0) sec ABG HCO3 26 H (21-25) mmol/L ABG Total CO2 27 H (19-24) mmol/L ABG O2 Saturation 98.0 H (94-97) % Hemoglobin 7.4 L (13.0-17.5) gm/dL Chloride 110 H (98-107) mmol/L BUN 37 H (9-20) mg/dL Creatinine 1.45 H (0.66-1.25) mg/dL Glucose 238 H (74-99) mg/dL POC Glucose (mg/dL) (70-110) mg/dL Calcium 7.8 L (8.4-10.2) mg/dL Total Protein 4.7 L (6.3-8.2) g/dL Albumin 1.9 L (3.5-5.0) g/dL 08/19/24 08/19/24 Range/Units 04:36 05:47 WBC 17.2 H (3.8-10.6) k/uL RBC 3.01 L (4.30-5.90) m/uL Hgb 7.3 L (13.0-17.5) gm/dL Hct 25.2 L (39.0-53.0) % MCH 24.2 L (25.0-35.0) pg MCHC 28.9 L (31.0-37.0) g/dL RDW 20.5 H (11.5-15.5) % APTT (22.0-30.0) sec ABG HCO3 (21-25) mmol/L ABG Total CO2 (19-24) mmol/L ABG O2 Saturation (94-97) % Hemoglobin (13.0-17.5) gm/dL Chloride (98-107) mmol/L BUN (9-20) mg/dL Creatinine (0.66-1.25) mg/dL Glucose (74-99) mg/dL POC Glucose (mg/dL) 281 H (70-110) mg/dL Calcium (8.4-10.2) mg/dL Total Protein (6.3-8.2) g/dL Albumin (3.5-5.0) g/dL Microbiology - Last 24 Hours (Table) 08/12/24 21:50 Blood Culture - Final Blood Assessment and Plan Plan: Assessment: 1. Acute kidney injury secondary to ATN. Creatinine 1.5 in January 2024 and 2.5 this admission. Stable at 1.45 today. Nonoliguric. No hydronephrosis noted on CT. 2. Perforated gastric ulcer with pneumoperitoneum status post ex lap with closure of ulcer August 13, 2024. 3. Septic shock on vasopressor support. 4. Metabolic acidosis secondary to acute kidney injury and lactic acidosis. Improved. 5. Diabetes mellitus. 6. A-fib with RVR. On oral meds. Cardiology following. 7. Volume overload. Plan: Maintain Lasix. Frequency increased to every 8 hours. TPN per surgery. Replace potassium as needed. Wean FiO2 and vasopressors. Continue to monitor renal function and urine output.
[2024-08-19 12:12] LABS: Glucose,Whole Blood 283 mg/dL (70-110)
--- NOTE | 2024-08-19 12:39 | P.PN ---
Subjective Progress Note Date: 08/19/24 On 08/14/2024, this patient is being seen for a follow-up. The patient is postop day #2. The patient was found to have a perforated gastric ulcer with pneumoperitoneum. The patient underwent expected laparotomy abdominal washout and a modified Kiet patch. The patient is postop day #2. This morning, the patient remains intubated on mechanical ventilator. The patient on propofol running at 40 mcg/kg/min. Remains on active drinking at 125 cc an hour. Remains on norepinephrine running at 0.11 mcg/kg/min and vasopressin physiologic dose. On a mechanical ventilator, assist-control mode with rate of 18, tidal volume of 500, FiO2 30% with a PEEP of 5. Blood gas with a pH of 7.38 with a pCO2 of 33 and pO2 of 79. The patient's rhythm is atrial fibrillation. The patient has a ABDIAZIZ drain output is minimal at this point, the patient is covered with a combination of Zosyn and Diflucan. The patient received a total of 2 units of packed RBC postop. Blood work from today shows a WBC count of 26, hemoglobin 9.5 and a platelet count of 457. Sodium is at 139, BUN is 18 with a creatinine of 2.5 and a BUN of 71. Serum bicarbonate of 18. The patient does have an underlying acute on top of chronic kidney disease. He is febrile with a temperature of 101.7. He remains tachycardic. On 08/15/2024, the patient is being seen for a follow-up. This morning, the patient is still intubated on the mechanical ventilator. The patient sedated on propofol which is running at 40 mcg/kg/min. Remains on a mechanical ventilator assist-control mode at rate of 18, tidal volume of 500, FiO2 of 30% with a PEEP of 5. Blood gas from today showed a pH of 7.45 with a pCO2 of 35 and pO2 of 75. Chest x-ray from today shows ET tube in adequate location. Findings are consistent with CHF and volume overload and some worsening in the left basilar opacity/atelectasis. Hemodynamically, the patient remains in atrial fibrillation. Heart rate is under better control. The patient is on Cardizem drip that this has been weaned down to 2.5 mg an hour and the patient remains on IV heparin this was tolerated yesterday. At the same time, the patient remains on norepinephrine running at 0.1 mcg/kg/min and vasopressin physiologic dose. Lactated Ringer's running at a rate of 125 cc an hour and the patient is a positive fluid balance of 2.4 L. ABDIAZIZ output is minimal in the order of 5 to 10 cc over the past 12 hours. NG output is also minimal. Rest of the blood work showed a white cell count of 27.7, hemoglobin 8.5 and a platelet count of 407. The sodium levels at 141, BUN 58 with a creatinine of 2.1. Serum bicarb is at 23 and the chloride is 109. Glucose is 870. The blood cultures are still negat venkata.Echocardiogram showed a impaired LV function with ejection fraction of 35 to 40%. Right ventricular systolic pressure is at 54. 08/16/2024, patient is being seen for a follow-up in the intensive care unit. This morning, the patient remains intubated on mechanical ventilator. The patient sedated on propofol running at 40 mcg/kg/min. The patient is on assist- control mode with rate of 18, tidal volume of 500, FiO2 30% with a PEEP of 5. Blood gas showed a pH of 7.46 with a pCO2 of 37 and pO2 of 71. Chest x-ray from this morning shows worsening pulmonary vascular congestion and cardiomegaly with development of bilateral pleural effusions. There are some atelectatic changes in lung bases bilaterally. The patient was started on TPN which is currently running at 30 cc an hour. IV fluids are currently at KVO. Output from the NG tube is minimal in the order of 10 cc over the past 8 hours, output from the ABDIAZIZ is minimal in the order of 10 cc an hour. The patient is in atrial fibrill ation. The patient is having occasional PVCs. Remains on Cardizem drip at 2.5 mg an hour and the patient is also on IV heparin. Norepinephrine is running at 0.09 mcg/kg/min. The white cell count is improved and is currently down to 20 with a hemoglobin of 8 and a platelet count of 345. BUN is 49 with a creatinine of 1.87. Sodium levels at 142, potassium level is at 3.7, chloride is 110. Rem ains on a combination of Zosyn and Diflucan. On 08/17/2024, patient is being seen for a follow-up. This morning, the patient remains on propofol which is running at 40 mcg/kg/min. The patient was given sedation holiday yesterday. This was reported as the patient started having significant activities. The cardiac rhythm remains atrial fibrillation with controlled rate. This morning, the patient is calm and comfortable on propofol. He is on assist-control mode of mechanical ventilation at rate of 14, tidal volume of 500, FiO2 of 30% with a PEEP of 5. IV fluids are currently at KVO and the patient remains on TPN at a rate of 50 cc an hour. The patient is on low- dose norepinephrine running at 0.01 mcg/kg/min. The blood gas showed a pH of 7.46 with a pCO2 35 and pO2 of 70. Chest x-ray shows atelectatic changes and bilateral pleural effusions. NG tube output is in order of 100 cc over the past 8 hours. ABDIAZIZ output is in the order of 60 cc over the past 12 hours. The patient remains on IV heparin. The patient is off the Cardizem drip for now. The rest of the blood work shows a white cell count of 18, hemoglobin of 7.5 and a platelet count of 305. The sodium levels at 142, potassium level 3.8, chloride 112 and the bicarbonate is a 24. BUN 39 and a creatinine of 1.6. Blood sugars are elevated and the Lantus insulin dose will be further adjusted. No fever. No other significant events. Abdominal wound is dry clean and intact. 08/18/2024, the patient is being seen for a follow-up. She had another sedation holiday because of tachypnea and restlessness and asynchrony with a mechanical ventilator. This morning, he is on propofol. Will do a gradual propofol wean and use Precedex if needed. He is currently on propofol running at 20 mcg/kg/min. Remains on assist-control mode at rate of 14, tidal volume of 500, FiO2 of 30% with a PEEP of 5. Blood gas showed a pH of 7.43 with a pCO2 of 39 and pO2 of 88. Chest x-ray is unchanged and there is atelectatic change in the fusion lung base bilaterally. Remains on TPN for nutritional support with rate of 50 cc an hour. IV fluids are KVO. NG output is in the order of 200 cc over the past 24 hours. ABDIAZIZ output is in the order of 45 cc. Remains on norepinephrine at a dose of 0.01 mcg/kg/min. The fluid balance is -1.2 L over the past 24 hours and the patient remains on IV Lasix 40 mg every 12 hours. The patient is also on Zosyn and Diflucan. Afebrile. Hemodynamically stable with low-dose pressors. The white cell count is 18, hemoglobin 7.4 and a platelet count of 335. The BUN is 38 with a creatinine of 1.4. Sodium is at 142, bicarb is at 24. Blood sugars at 230 and Lantus dose has been modified. No other significant events overnight. On 08/19/2024, the patient is being seen for a follow-up. Remains intubated on mechanical ventilatory patient has been off propofol for the past 24 hours. He is opening his eyes and moving. Nevertheless, is not following commands yet. He continues to be quite sedated. As such, no weaning trials have been done awaiting further improvement in his mentation. Cardiac rhythm is atrial fibrillation and the patient remains on IV heparin. Rate is controlled. Remains on low-dose norepinephrine which is running at 0.05 mcg/kg/min. He is on TPN at rate of 80 cc an hour. He is on the IV Lasix 40 mg every 12 hours and the fluid balance -238 cc over the past 24 hours. He is on the mechanical ventilator assist-control mode at rate of 14, tidal volume of 500, FiO2 of 30% with a PEEP of 5. Blood gas showed a pH of 7.43 with a pCO2 of 39 and pO2 of 95. NG tube output has been 50 cc over the past 12 hours. ABDIAZIZ output is minimal. Blood work from today shows a white cell count of 17, hemoglobin 7.3 and a platelet count of 319. Sodium is at 143, BUN 37 and the creatinine is at 1.45. Remains on Zosyn and Diflucan. Blood sugar control with Lantus. Objective - Vital Signs Vital signs: Vital Signs Temp 99.8 F H 08/19/24 08:00 Pulse 96 08/19/24 08:51 Resp 13 08/19/24 08:45 BP 108/62 08/19/24 08:45 Pulse Ox 97 08/19/24 08:45 FiO2 30 08/19/24 08:00 Intake & Output 08/18/24 08/19/24 08/19/24 18:59 06:59 18:59 Intake Total 2538.005 1433.923 325 Output Total 9710 5855 607 Balance 308.005 -546.077 -282 Weight 111.8 kg 113.6 kg Intake: IV 1205 730 245 .9NS KVO 180 180 35 Fluconazole in NaCl,Iso- 100 Osm 200 mg In Saline 1 100ml.bag @ 100 mls/hr IVPB DAILY [facility] Rx#: [id number] Mvi, Adult No.4 with Vit 725 450 160 K 10 ml Trace (Conc-1Ml/ Dose) 1 ml Sodium Acetate 16 meq Potassium Acetate 14 meq Potassium Phosphate 21 mmol Magnesium Sulfate gm 0.75 gm Calcium Gluconate 1 gm In Amino Acids 5 %/ Dextrose 20 % 1,000 ml @ 75 mls/hr IV .[id number] [facility] Rx#:[id number] Piperacillin-Tazobactam 3 200 100 50 .375 gm In Sodium Chloride 0.9% 100 ml @ 25 mls/hr IVPB Q8HR [facility] Rx# :[id number] Intake, IV Titration 1333.005 703.923 80 Amount Heparin Sod,Pork in 0.45% 170.544 269.953 NaCl 25,000 unit In 0.45 % NaCl 1 250ml.bag @ 6. 826 UNITS/KG/HR 10 mls/hr IV .Q24H [facility] Rx#: [id number] Mvi, Adult No.4 with Vit 1094.167 K 10 ml Trace (Conc-1Ml/ Dose) 1 ml Sodium Acetate 16 meq Potassium Acetate 14 meq Potassium Phosphate 21 mmol Magnesium Sulfate gm 0.75 gm Calcium Gluconate 1 gm In Amino Acids 5 %/ Dextrose 20 % 1,000 ml @ 75 mls/hr IV .[id number] [facility] Rx#:[id number] Norepinephrine 32 mg In 21.572 33.970 Sodium Chloride 0.9% 218 ml @ 0.03 MCG/KG/MIN 2.06 mls/hr IV .Q24H [facility] Rx#: [id number] Sodium Acetate 16 meq 400 80 Potassium Acetate 14 meq Potassium Phosphate 9 mmol Magnesium Sulfate gm 0.5 gm Calcium Gluconate 1 gm In Amino Acid 5%- D15w 1,000 ml @ 80 mls/hr IV .BY DURATION [facility] Rx#: [id number] propofoL 1,000 mg In 46.722 Empty Bag 1 bag @ 15 MCG/ KG/MIN 8.9 mls/hr IV . [id number] [facility] Rx#:[id number] Oral 0 Output: Gastric Drainage 250 100 Drainage 50 10 2 Right abdominal ABDIAZIZ drain 50 10 2 Urine 1929 1870 605 Other: Voiding Method Indwelling Catheter Indwelling Catheter # Voids 100 ABP, PAP, CO, CI - Last Documented Arterial Blood Pressure 125/51 - Exam GENERAL EXAM: Intubated, sedated 79-year-old male patient, on mechanical ventilator. Calm and comfortable on propofol. HEAD: Normocephalic. EYES: Sluggish reaction of pupils, equal size. NOSE: Clear with pink turbinates. THROAT: Oral endotracheal and gastric tube secured in place. No erythema or exudates. NECK: No masses, no JVD. Right IJ triple-lumen catheter in place. CHEST: No chest wall deformity. LUNGS: Equal air entry with no crackles, wheeze, rhonchi or dullness. CVS: S1 and S irregular consistent with atrial fibrillation with no audible murmur, irregular rhythm. The rate is controlled. No significant ectopy is on today's evaluation. ABDOMEN: Abdominal dressing dry and intact. ABDIAZIZ drain in place. No hepatosplenomegaly. SPINE: No scoliosis or deformity SKIN: No rashes CENTRAL NERVOUS SYSTEM: Sedated, tone is normal in all 4 extremities. EXTREMITIES: Left radial arterial line in place. There is no peripheral edema. No clubbing, no cyanosis. Peripheral pulses are intact. - Labs CBC & Chem 7: 08/19/24 04:36 08/19/24 04:36 Labs: Abnormal Lab Results - Last 24 Hours (Table) 08/18/24 08/18/24 08/18/24 Range/Units 10:43 10:45 17:38 WBC (3.8-10.6) k/uL RBC (4.30-5.90) m/uL Hgb (13.0-17.5) gm/dL Hct (39.0-53.0) % MCH (25.0-35.0) pg MCHC (31.0-37.0) g/dL RDW (11.5-15.5) % APTT 47.1 H (22.0-30.0) sec ABG HCO3 (21-25) mmol/L ABG Total CO2 (19-24) mmol/L ABG O2 Saturation (94-97) % Hemoglobin (13.0-17.5) gm/dL Chloride (98-107) mmol/L BUN (9-20) mg/dL Creatinine (0.66-1.25) mg/dL Glucose (74-99) mg/dL POC Glucose (mg/dL) 230 H 320 H (70-110) mg/dL Calcium (8.4-10.2) mg/dL Total Protein (6.3-8.2) g/dL Albumin (3.5-5.0) g/dL 08/18/24 08/18/24 08/18/24 Range/Units 17:39 20:31 23:48 WBC (3.8-10.6) k/uL RBC (4.30-5.90) m/uL Hgb (13.0-17.5) gm/dL Hct (39.0-53.0) % MCH (25.0-35.0) pg MCHC (31.0-37.0) g/dL RDW (11.5-15.5) % APTT (22.0-30.0) sec ABG HCO3 (21-25) mmol/L ABG Total CO2 (19-24) mmol/L ABG O2 Saturation (94-97) % Hemoglobin (13.0-17.5) gm/dL Chloride (98-107) mmol/L BUN (9-20) mg/dL Creatinine (0.66-1.25) mg/dL Glucose (74-99) mg/dL POC Glucose (mg/dL) 340 H 289 H 274 H (70-110) mg/dL Calcium (8.4-10.2) mg/dL Total Protein (6.3-8.2) g/dL Albumin (3.5-5.0) g/dL 08/19/24 08/19/24 08/19/24 Range/Units 04:24 04:36 04:36 WBC (3.8-10.6) k/uL RBC (4.30-5.90) m/uL Hgb (13.0-17.5) gm/dL Hct (39.0-53.0) % MCH (25.0-35.0) pg MCHC (31.0-37.0) g/dL RDW (11.5-15.5) % APTT 36.8 H (22.0-30.0) sec ABG HCO3 26 H (21-25) mmol/L ABG Total CO2 27 H (19-24) mmol/L ABG O2 Saturation 98.0 H (94-97) % Hemoglobin 7.4 L (13.0-17.5) gm/dL Chloride 110 H (98-107) mmol/L BUN 37 H (9-20) mg/dL Creatinine 1.45 H (0.66-1.25) mg/dL Glucose 238 H (74-99) mg/dL POC Glucose (mg/dL) (70-110) mg/dL Calcium 7.8 L (8.4-10.2) mg/dL Total Protein 4.7 L (6.3-8.2) g/dL Albumin 1.9 L (3.5-5.0) g/dL 08/19/24 08/19/24 Range/Units 04:36 05:47 WBC 17.2 H (3.8-10.6) k/uL RBC 3.01 L (4.30-5.90) m/uL Hgb 7.3 L (13.0-17.5) gm/dL Hct 25.2 L (39.0-53.0) % MCH 24.2 L (25.0-35.0) pg MCHC 28.9 L (31.0-37.0) g/dL RDW 20.5 H (11.5-15.5) % APTT (22.0-30.0) sec ABG HCO3 (21-25) mmol/L ABG Total CO2 (19-24) mmol/L ABG O2 Saturation (94-97) % Hemoglobin (13.0-17.5) gm/dL Chloride (98-107) mmol/L BUN (9-20) mg/dL Creatinine (0.66-1.25) mg/dL Glucose (74-99) mg/dL POC Glucose (mg/dL) 281 H (70-110) mg/dL Calcium (8.4-10.2) mg/dL Total Protein (6.3-8.2) g/dL Albumin (3.5-5.0) g/dL Microbiology - Last 24 Hours (Table) 08/12/24 21:50 Blood Culture - Final Blood Assessment and Plan Plan: Acute abdominal pain secondary to perforated gastric ulcer with pneumoperitoneum. Status post exploratory laparotomy, abdominal washout and modified Kiet patch. Postoperative day # 7. Hemodynamically improved and the patient is currently off sedation. Mental status is gradually recovering. The patient is quite sleepy and is not following simple commands yet. He has been off propofol for the past 24 hours. Acute sepsis with hypotension secondary to above, patient remains hypotensive a nd the patient continues to have leukocytosis. Covered with a combination of Zosyn and Diflucan. Has been adequately fluid resuscitated. The patient is currently on low-dose norepinephrine. Vasopressin has been discontinued Hypotension requiring pressor support, still on low-dose norepinephrine Third spacing and edema in all 4 extremities, currently on IV Lasix. Chest x- ray also shows some atelectatic changes and bilateral pleural effusions. Acute hypoxic respiratory failure secondary to above. This is an expected outcome of gastric perforation and sepsis. The patient remains intubated on the mechanical ventilator and the patient has developed bilateral pleural effusion and atelectatic change in lung bases along with pulm vessel congestion. Systolic heart failure with ejection fraction of 35% Acute blood loss anemia, received 2 units of packed red blood cells, hemoglobin stable Leukocytosis secondary to above,, white cell count remains elevated, slowly improving Acute kidney injury secondary to above on top of chronic kidney disease, creatinine stable on today's evaluation Chronic atrial fibrillation, rate controlled on IV Lopressor 5 mg every 8 hours and IV heparin History of hypertension Non-smoker History of prostate cancer Plan: Keep the patient off propofol and monitor mentation. Continue vent support no changes Chest x-ray findings are stable and the patient could be potentially weaned off to mechanical ventilator once he is mental status further recovers. Change IV fluids to KVO Continue IV heparin watch for any signs of bleeding The patient remains on pressors and the patient is on low-dose norepinephrine Monitor renal function, improving Monitor white cell count, improving Monitor cultures Continue Zosyn and Diflucan Continue Lasix 40 mg IV every 8 hours and a dose of the increased Keep the patient sedated on propofol, give the patient a sedation holiday and use Precedex if needed TPN at a rate of 80 cc an hour Monitor the NG output and the output from the ABDIAZIZ drain Change Lantus to 20 units twice daily along with a sliding scale insulin coverage Sedation holiday and assess mentation We will continue to follow and make further recommendations based on his clinical status Critical care evaluation, 33 minutes. Time with Patient: Greater than 30
--- NOTE | 2024-08-19 12:52 | P.PN ---
Progress Note - Text Progress Note Date: 08/19/24 CHIEF COMPLAINT: Perforated gastric ulcer HISTORY OF PRESENT ILLNESS: Patient is postop day #6 status post exploratory laparotomy and modified Kiet patch for perforated gastric ulcer. Patient remains in the ICU intubated. He is on IV heparin for A-fib. ABDIAZIZ drain with serous output. No acute events overnight. PHYSICAL EXAM: VITAL SIGNS: Reviewed. GENERAL: no acute distress. ABDOMEN: Soft. Nondistended. Incisional dressing clean dry and intact. ABDIAZIZ drain serous output NEUROLOGIC: Intubated and sedated ASSESSMENT: 1. Perforated gastric ulcer status post exploratory laparotomy and modified Kiet patch 2. Hypokalemia improved 3. A-fib on IV heparin PLAN: -Recommend upper GI after patient is extubated -Continue TPN for nutrition support -Continue ICU management -Continue supportive care -Continue NG tube to low intermittent suction -Keep NPO -Continue antibiotics -Continue to monitor ABDIAZIZ drain -Continue IV Protonix -Continue to monitor hemoglobin Maik Raymond DO [facility] [phone]
[2024-08-19] MEDS: FUROSEMIDE 10 MG/ML 4 ML VIAL IV SCH (16:03)
--- NOTE | 2024-08-19 16:43 | P.PN ---
Subjective Progress Note Date: 08/19/24 This is a 79-year-old male who was monitored in the intensive care unit. He is postoperative day #2 repair of perforated gastric ulcer with Kiet patch. He remains sedated and intubated on the mechanical ventilator. Patient has been febrile with a Tmax of 101.7 axillary in the last 24 hours. He was noted to be in atrial fibrillation with RVR and has been started on IV Cardizem. Eliquis remains on hold postsurgically. Patient continues on multiple antibiotic therapy including IV fluconazole IV Zosyn with infectious disease following closely. He is currently sedated with propofol he is requiring Levophed and vasopressin support. Blood culture remains negative so far. Labs reveal a white blood cell complement 3.7, hemoglobin 9.5, sodium 139, potassium 4.1, BUN of 31 creatinine 3.52 calcium of 6.8 chest x-ray today reveals continued CHF exacerbation and fluid overload state with no significant for 1 day earlier. Patient does have hypotensive bowel sounds. 08/15/2024 Patient is evaluated in the ICU he remains on the mechanical ventilator with PEEP of 5 and FiO2 of 30%. He is postoperative day #3 repair of perforated gastric ulcer with kiet patch. Currently sedated with propofol. Chest xray findings suggest continued CHF exacerbation fluid over load state. worsening left basilar opacity could reflect acute infiltrate and or atelectasis. Correlate clinically. White blood cell count 27.7, hgb 8.5, sodium 141, potassium 3.9, BUN 58, creatinine 2.10. Magnesium 1.8. 08/16/2024 Patient is evaluated today in the intensive care unit he is postoperative day #4 to get with Kiet patch. Patient remains sedated with propofol. He is currently intubated and on mechanical ventilator with a PEEP of 5 and FiO2 of 30%. Chest x-ray today reveals worsening CHF. His white blood cell count today is 20.9, hemoglobin 8, BUN of 49 creatinine of 1.87. Patient remains on room. He was having runs of V. tach and was taken off IV Cardizem started on an oral metoprolol on an outpatient basis. his heart rate is controlled. He continues on IV Zosyn. He remains on IV fluconazole. Blood sugars are elevated after the start of TPN. He was started on a small dose of Lantus and we will continue to monitor and make adjustments as needed. 08/17/2024 Patient is evaluated today in the ICU. He remains sedated and intubated on the mechanical ventilator. PEEP of 5 and FiO2 of 40%. Patient currently undergoing sedation holiday and has not been responsive. Patient received IV lasix x 1 and has since been started on IV lasix 40 mg [id number]. Patient remains on IV heparin. Continues on IV metoprolol and no further reports of ectopi noted. White blood cell count 18.0, hgb 7.5, BUN 39, creatinine 1.64. Blood glucose remains elevated in the 200s. Chest xray today reveals continued CHF. 08/18/2024 Patient is evaluated in follow-up in the intensive care unit. He remains sedated and intubated on mechanical ventilator. Patient is a PEEP of 5 and FiO2 of 40%. Labs today reveals white blood cell count 18.4, hgb 7.4, BUN 38, creatinine 1.45. Blood glucose in the 200s. Patient remains on IV fluconazole and IV zosyn. Remains on IV heparin. Patient on small dose of levo. Continues on TPN. Patient had low grade fever 100.1 overnight. 08/19/2024 Patient is eval seen in follow-up in the intensive care unit. He remains sedated and intubated on mechanical ventilator. He is any sedation held today and is more awake alert with spontaneous eye opening and tracking. His daughter is at the bedside. Ventilator settings were adjusted and he continues on a PEEP of 5 with an FiO2 of 30%. He remains on IV fluconazole and IV Zosyn. Chest x- ray today reveals stable findings suggestive of CHF overload state. He continues on IV Lasix which was increased to 40 mg every 8 hours. He continues on IV heparin. He is on a small dose of Levophed. To complete a review of systems as patient is currently intubated and sedated in the intensive care unit PHYSICAL EXAMINATION: GENERAL: The patient is sedated, not in any acute distress. Well developed, well nourished. Pale HEENT: Pupils are round and equally reacting to light. EOMI. No scleral icterus. No conjunctival pallor. Normocephalic, atraumatic. No pharyngeal erythema. No thyromegaly. CARDIOVASCULAR: S1 and S2 present. No murmurs, rubs, or gallops. PULMONARY: Chest is clear to auscultation, no wheezing or crackles. ABDOMEN: Soft, nontender, nondistended, Hypoactive bowel sounds. No palpable organomegaly. Mid line incision intact no surrounding erythema or drainage MUSCULOSKELETAL: No joint swelling or deformity. EXTREMITIES: No cyanosis, clubbing, or pedal edema. NEUROLOGICAL: Gross neurological examination did not reveal any focal deficits. SKIN: No rashes. Assessment and plan Perforated gastric ulcer pneumoperitoneum postoperative day #7 surgical repair with Kiet patch Septic shock secondary to above Acute kidney injury due to acute tubular necrosis from infection Atrial fibrillation with rapid ventricular rate Acute CHF exacerbation, systolic dysfunction EF 35-40%. History of fibrillation anticoagulant Eliquis Diabetes mellitus type 2 History of stage III pancreatic cancer History hypertension Hyperlipidemia VTE prophylaxis as per primary GI prophylaxis Xarelto remains on hold and patient continues on IV heparin Full code Plan Due to runs of V. tach Cardizem has been discontinued patient is been started on IV push Lopressor Cardiology following Patient on IV heparin Started on IV lasix 40 mg Q8 hour Continue IV fluconazole IV Zosyn; ID following cultures Mechanical ventilator per tank terminal gauger Patient remains n.p.o. and unable to take his oral home medications at this time Patient to be started on TPN blood sugars are elevated patient was started on Lantus 10 units daily and will continue to monitor blood glucose remains elevated will increase Lantus continues on Accu-Cheks every 6 hours sliding scale insulin. Monitor electrolytes and renal function. The impression and plan of care has been dictated by Linda Keenan Nurse Practitioner as directed. Dr. Cam MD I have performed a history and physical examination and medical decision making of this patient, discussed the same with the dictator, and agree with the dictators assessment and plan as written, documented as a scribe. Based on total visit time, I have performed more than 50% of this visit. Objective - Vital Signs Vital signs: Vital Signs Temp 99.6 F 08/19/24 16:00 Pulse 93 08/19/24 16:00 Resp 14 08/19/24 16:00 BP 103/63 08/19/24 16:00 Pulse Ox 97 08/19/24 16:00 FiO2 30 08/19/24 16:00 Intake & Output 08/18/24 08/19/24 08/19/24 18:59 06:59 18:59 Intake Total 2538.005 4066.838 7809.502 Output Total 2230 1980 1582 Balance 308.005 -546.077 -339.498 Weight 111.8 kg 113.6 kg Intake: IV 1205 730 935 .9NS KVO 180 180 95 Fluconazole in NaCl,Iso- 100 100 Osm 200 mg In Saline 1 100ml.bag @ 100 mls/hr IVPB DAILY [facility] Rx#: [id number] Mvi, Adult No.4 with Vit 725 450 640 K 10 ml Trace (Conc-1Ml/ Dose) 1 ml Sodium Acetate 16 meq Potassium Acetate 14 meq Potassium Phosphate 21 mmol Magnesium Sulfate gm 0.75 gm Calcium Gluconate 1 gm In Amino Acids 5 %/ Dextrose 20 % 1,000 ml @ 75 mls/hr IV .[id number] [facility] Rx#:[id number] Piperacillin-Tazobactam 3 200 100 100 .375 gm In Sodium Chloride 0.9% 100 ml @ 25 mls/hr IVPB Q8HR [facility] Rx# :[id number] Intake, IV Titration 1333.005 703.923 307.502 Amount Heparin Sod,Pork in 0.45% 170.544 269.953 213.423 NaCl 25,000 unit In 0.45 % NaCl 1 250ml.bag @ 6. 826 UNITS/KG/HR 10 mls/hr IV .Q24H [facility] Rx#: [id number] Mvi, Adult No.4 with Vit 1094.167 K 10 ml Trace (Conc-1Ml/ Dose) 1 ml Sodium Acetate 16 meq Potassium Acetate 14 meq Potassium Phosphate 21 mmol Magnesium Sulfate gm 0.75 gm Calcium Gluconate 1 gm In Amino Acids 5 %/ Dextrose 20 % 1,000 ml @ 75 mls/hr IV .[id number] [facility] Rx#:[id number] Norepinephrine 32 mg In 21.572 33.970 14.079 Sodium Chloride 0.9% 218 ml @ 0.03 MCG/KG/MIN 2.06 mls/hr IV .Q24H [facility] Rx#: [id number] Sodium Acetate 16 meq 400 80 Potassium Acetate 14 meq Potassium Phosphate 9 mmol Magnesium Sulfate gm 0.5 gm Calcium Gluconate 1 gm In Amino Acid 5%- D15w 1,000 ml @ 80 mls/hr IV .BY DURATION [facility] Rx#: [id number] propofoL 1,000 mg In 46.722 Empty Bag 1 bag @ 15 MCG/ KG/MIN 8.9 mls/hr IV . [id number] [facility] Rx#:[id number] Oral 0 Output: Gastric Drainage 250 100 Drainage 50 10 2 Right abdominal ABDIAZIZ drain 50 10 2 Urine 1930 1870 1580 Other: Voiding Method Indwelling Catheter Indwelling Catheter Indwelling Catheter # Voids 100 ABP, PAP, CO, CI - Last Documented Arterial Blood Pressure 122/48 - Labs CBC & Chem 7: 08/19/24 04:36 08/19/24 04:36 Labs: Abnormal Lab Results - Last 24 Hours (Table) 08/18/24 08/18/24 08/18/24 Range/Units 17:38 17:39 20:31 WBC (3.8-10.6) k/uL RBC (4.30-5.90) m/uL Hgb (13.0-17.5) gm/dL Hct (39.0-53.0) % MCH (25.0-35.0) pg MCHC (31.0-37.0) g/dL RDW (11.5-15.5) % APTT (22.0-30.0) sec ABG HCO3 (21-25) mmol/L ABG Total CO2 (19-24) mmol/L ABG O2 Saturation (94-97) % Hemoglobin (13.0-17.5) gm/dL Chloride (98-107) mmol/L BUN (9-20) mg/dL Creatinine (0.66-1.25) mg/dL Glucose (74-99) mg/dL POC Glucose (mg/dL) 320 H 340 H 289 H (70-110) mg/dL Calcium (8.4-10.2) mg/dL Total Protein (6.3-8.2) g/dL Albumin (3.5-5.0) g/dL 08/18/24 08/19/24 08/19/24 Range/Units 23:48 04:24 04:36 WBC (3.8-10.6) k/uL RBC (4.30-5.90) m/uL Hgb (13.0-17.5) gm/dL Hct (39.0-53.0) % MCH (25.0-35.0) pg MCHC (31.0-37.0) g/dL RDW (11.5-15.5) % APTT (22.0-30.0) sec ABG HCO3 26 H (21-25) mmol/L ABG Total CO2 27 H (19-24) mmol/L ABG O2 Saturation 98.0 H (94-97) % Hemoglobin 7.4 L (13.0-17.5) gm/dL Chloride 110 H (98-107) mmol/L BUN 37 H (9-20) mg/dL Creatinine 1.45 H (0.66-1.25) mg/dL Glucose 238 H (74-99) mg/dL POC Glucose (mg/dL) 274 H (70-110) mg/dL Calcium 7.8 L (8.4-10.2) mg/dL Total Protein 4.7 L (6.3-8.2) g/dL Albumin 1.9 L (3.5-5.0) g/dL 08/19/24 08/19/24 08/19/24 Range/Units 04:36 04:36 05:47 WBC 17.2 H (3.8-10.6) k/uL RBC 3.01 L (4.30-5.90) m/uL Hgb 7.3 L (13.0-17.5) gm/dL Hct 25.2 L (39.0-53.0) % MCH 24.2 L (25.0-35.0) pg MCHC 28.9 L (31.0-37.0) g/dL RDW 20.5 H (11.5-15.5) % APTT 36.8 H (22.0-30.0) sec ABG HCO3 (21-25) mmol/L ABG Total CO2 (19-24) mmol/L ABG O2 Saturation (94-97) % Hemoglobin (13.0-17.5) gm/dL Chloride (98-107) mmol/L BUN (9-20) mg/dL Creatinine (0.66-1.25) mg/dL Glucose (74-99) mg/dL POC Glucose (mg/dL) 281 H (70-110) mg/dL Calcium (8.4-10.2) mg/dL Total Protein (6.3-8.2) g/dL Albumin (3.5-5.0) g/dL 08/19/24 08/19/24 Range/Units 12:11 13:49 WBC (3.8-10.6) k/uL RBC (4.30-5.90) m/uL Hgb (13.0-17.5) gm/dL Hct (39.0-53.0) % MCH (25.0-35.0) pg MCHC (31.0-37.0) g/dL RDW (11.5-15.5) % APTT 49.2 H (22.0-30.0) sec ABG HCO3 (21-25) mmol/L ABG Total CO2 (19-24) mmol/L ABG O2 Saturation (94-97) % Hemoglobin (13.0-17.5) gm/dL Chloride (98-107) mmol/L BUN (9-20) mg/dL Creatinine (0.66-1.25) mg/dL Glucose (74-99) mg/dL POC Glucose (mg/dL) 283 H (70-110) mg/dL Calcium (8.4-10.2) mg/dL Total Protein (6.3-8.2) g/dL Albumin (3.5-5.0) g/dL Microbiology - Last 24 Hours (Table) 08/12/24 21:50 Blood Culture - Final Blood Assessment and Plan Time with Patient: Less than 30
[2024-08-19 18:10] LABS: Glucose,Whole Blood 284 mg/dL (70-110)
--- NOTE | 2024-08-19 19:50 | PN ---
PROGRESS NOTE SUBJECTIVE: Clinton is a 79-year-old gentleman with history of perforated gastric ulcer, pneumoperitoneum, whom we are following because of atrial fibrillation. He is intubated on vent. Remains in atrial fibrillation with at times poorly controlled ventricular rate. He is on Lopressor 5 mg IV q.8 and also on IV heparin. PHYSICAL EXAMINATION: VITAL SIGNS: Heart rate is around 90 to 110 beats per minute, blood pressure is 130/70, respiratory rate is 18. CHEST: Reveals occasional rhonchi bilaterally. HEART: Reveals first and second heart sounds are regular rhythm. EXTREMITIES: Reveal mild edema bilaterally. LABORATORY DATA: Shows a hemoglobin of 7.3, platelet count is 319. Potassium is 4, BUN is 37, creatinine is 1.45. ASSESSMENT: 1. Persistent atrial fibrillation with controlled ventricular rate. 2. Vent requiring respiratory failure. 3. History of perforated gastric ulcer, status post surgery. PLAN: I will continue the patient on Lopressor and IV heparin. MMODL / IJN: [id number] /
[2024-08-19 20:21] LABS: Glucose,Whole Blood 282 mg/dL (70-110)
[2024-08-19 23:42] LABS: Glucose,Whole Blood 258 mg/dL (70-110)
[2024-08-20] MEDS: HYDROmorphone 1 MG/ML 1 ML SYRINGE IVP PRN (00:22)
[2024-08-20 05:01] LABS: ABG Base Excess 3.1 mmol/L; ABG HCO3 28 mmol/L (21-25); ABG Oxygen Saturation 98.4 % (94-97); ABG PCO2 41 mmHg (35-45); ABG PH 7.44 (7.35-7.45); ABG PO2 97 mmHg (83-108); ABG TCO2 29 mmol/L (19-24)
[2024-08-20 05:02] LABS: Allen Test Performed? No
[2024-08-20 05:26] LABS: Glucose,Whole Blood 261 mg/dL (70-110)
[2024-08-20 06:08] LABS: ALT 11 U/L (4-49); AST 41 U/L (17-59); African American GFR (CKD) 60 (>60 ml/min/1.73 sqM); Alkaline Phosphatase 105 U/L (38-126); Anion Gap 9 mmol/L; Blood Urea Nitrogen 42 mg/dL (9-20); Carbon Dioxide 27 mmol/L (22-30); Chloride 107 mmol/L (98-107); Glucose 229 mg/dL (74-99); Magnesium 1.9 mg/dL (1.6-2.3); Non-African American GFR(CKD) 52 (>60 ml/min/1.73 sqM); Phosphorus 3.5 mg/dL (2.5-4.5); Potassium 3.6 mmol/L (3.5-5.1); Sodium 143 mmol/L (137-145); Total Bilirubin 0.4 mg/dL (0.2-1.3); Total Protein 4.8 g/dL (6.3-8.2)
[2024-08-20] MEDS ORDERED: Potassium Replacement Protocol 1 EACH MISC MISCELLANE PRN (06:15)
[2024-08-20] MEDS: POTASSIUM CHLORIDE 10 MEQ in WATER FOR INJECTION 1 100ML.BAG IVPB SCH (06:43)
--- NOTE | 2024-08-20 07:22 | XR ---
EXAMINATION TYPE: XR chest 1V DATE OF EXAM: 08/20/2024 4:36 AM COMPARISON: Multiple radiographs, with the most recent on 08/19/2024 TECHNIQUE: XR chest 1V Portable AP radiograph of the chest. CLINICAL INDICATION:Male, 79 years old with history of vent; FINDINGS: The patient is rotated which limits evaluation. Lungs/Pleura: Persistent low lung volumes with small left and small to moderate right pleural effusio ns. Elevation of the right hemidiaphragm. Pulmonary vascularity: Similar central vascular congestion. Heart/mediastinum: Cardiomediastinal silhouette is enlarged and stable. Musculoskeletal: No acute osseous pathology. Multilevel degenerative disc disease. Other findings: None Lines/Tubes: Endotracheal tube with distal tip 4.1 cm above the shakira Nasogastric tube with its distal tip and side-port projecting under the diaphragm. Stable right IJ central venous catheter at the low SVC. IMPRESSION: 1. Overall similar findings suggestive of continued CHF exacerbation/fluid overload state. 2. Stable support lines and tubes. [facility], , 08/20/2024 7:20 AM
[2024-08-20] MEDS: MAGNESIUM SULFATE-D5W PMX 1 GM in DEXTROSE/WATER 1 100ML.BAG IVPB ONE (07:30)
[2024-08-20 07:34] LABS: Anisocytosis Moderate; HCT 25.6 % (39.0-53.0); HGB 7.1 gm/dL (13.0-17.5); Hypochromasia Marked; MCH 23.4 pg (25.0-35.0); MCHC 27.6 g/dL (31.0-37.0); MCV 84.6 fL (80.0-100.0); Mean Platelet Volume 9.4; Microcytosis Slight; Platelet Count 352 k/uL (150-450); Poikilocytosis Slight; RBC 3.03 m/uL (4.30-5.90); RDW 20.1 % (11.5-15.5); WBC 14.8 k/uL (3.8-10.6)
[2024-08-20 08:22] LABS: Band Neutrophils % 3 %; Lymphocytes # (M) 1.33 k/uL (1.0-4.8); Monocytes # (M) 0.74 k/uL (0-1.0); Neutrophils % (M) 81 %; Nucleated Red Blood Cells 0 /100 WBC (0-0); Total Cells Counted 100
--- NOTE | 2024-08-20 09:26 | P.PN ---
Progress Note - Text Progress Note Date: 08/20/24 HISTORY OF PRESENT ILLNESS: Patient is postop day #7 status post exploratory laparotomy and modified Kiet patch for perforated gastric ulcer. Patient remains in the ICU intubated. He is on IV heparin for A-fib. ABDIAZIZ drain with serous output. No acute events overnight. PHYSICAL EXAM: VITAL SIGNS: Reviewed. GENERAL: no acute distress. ABDOMEN: Soft. Nondistended. Incisional dressing clean dry and intact. ABDIAZIZ drain serous output NEUROLOGIC: Intubated and sedated ASSESSMENT: 1. Perforated gastric ulcer status post exploratory laparotomy and modified Kiet patch 2. Hypokalemia improved 3. A-fib on IV heparin PLAN: -Recommend upper GI after patient is extubated -Continue TPN for nutrition support -Continue ICU management -Continue supportive care -Continue NG tube to low intermittent suction -Keep NPO -Continue antibiotics -Continue to monitor ABDIAZIZ drain -Continue IV Protonix -Continue to monitor hemoglobin Maik Raymond DO [facility] [phone]
--- NOTE | 2024-08-20 09:50 | P.PN ---
Subjective Patient is seen in follow-up for acute kidney injury. Renal function better. Nonoliguric. On IV Lasix. On low-dose Levophed. Receiving TPN. Intubated. Vital signs - On vasopressor support. General: Resting in bed. HEENT: Intubated. LUNGS: Scattered rhonchi. HEART: Regular rate and rhythm. ABDOMEN: ABDIAZIZ drain noted. EXTREMITITES: 1+ edema. Objective - Vital Signs Vital signs: Vital Signs Temp 100.1 F H 08/20/24 08:00 Pulse 99 08/20/24 09:30 Resp 15 08/20/24 09:30 BP 131/74 08/20/24 09:00 Pulse Ox 95 08/20/24 09:30 FiO2 30 08/20/24 08:00 Intake & Output 08/19/24 08/20/24 08/20/24 18:59 06:59 18:59 Intake Total 2640.035 1455 598.359 Output Total 2087 2220 475 Balance 553.035 -765 123.359 Weight 114 kg Intake: IV 1280 1205 570 .9NS KVO 125 120 30 Fluconazole in NaCl,Iso- 100 100 Osm 200 mg In Saline 1 100ml.bag @ 100 mls/hr IVPB DAILY [facility] Rx#: [id number] Magnesium Sulfate-D5w Pmx 100 1 gm In Dextrose/Water 1 100ml.bag @ 100 mls/hr IVPB ONCE [facility] Rx#: [id number] Mvi, Adult No.4 with Vit 880 960 240 K 10 ml Trace (Conc-1Ml/ Dose) 1 ml Sodium Acetate 16 meq Potassium Acetate 14 meq Potassium Phosphate 21 mmol Magnesium Sulfate gm 0.75 gm Calcium Gluconate 1 gm In Amino Acids 5 %/ Dextrose 20 % 1,000 ml @ 75 mls/hr IV .[id number] [facility] Rx#:[id number] Piperacillin-Tazobactam 3 175 125 .375 gm In Sodium Chloride 0.9% 100 ml @ 25 mls/hr IVPB Q8HR [facility] Rx# :[id number] Potassium Chloride 10 meq 100 In Water For Injection 1 100ml.bag @ 100 mls/hr IVPB Q1H [facility] Rx#: [id number] Intake, IV Titration 1360.035 250 28.359 Amount Heparin Sod,Pork in 0.45% 213.423 250 NaCl 25,000 unit In 0.45 % NaCl 1 250ml.bag @ 6. 826 UNITS/KG/HR 10 mls/hr IV .Q24H [facility] Rx#: [id number] Norepinephrine 32 mg In 37.612 28.359 Sodium Chloride 0.9% 218 ml @ 0.03 MCG/KG/MIN 2.06 mls/hr IV .Q24H [facility] Rx#: [id number] Sodium Acetate 16 meq 1109 Potassium Acetate 14 meq Potassium Phosphate 9 mmol Magnesium Sulfate gm 0.5 gm Calcium Gluconate 1 gm In Amino Acid 5%- D15w 1,000 ml @ 80 mls/hr IV .BY DURATION [facility] Rx#: [id number] Output: Gastric Drainage 150 Drainage 2 20 Right abdominal ABDIAZIZ drain 2 20 Urine 2084 2049 475 Other: Voiding Method Indwelling Catheter Indwelling Catheter ABP, PAP, CO, CI - Last Documented Arterial Blood Pressure 107/43 - Labs CBC & Chem 7: 08/20/24 04:45 08/20/24 04:45 Labs: Abnormal Lab Results - Last 24 Hours (Table) 08/19/24 08/19/24 08/19/24 Range/Units 12:11 13:49 18:09 WBC (3.8-10.6) k/uL RBC (4.30-5.90) m/uL Hgb (13.0-17.5) gm/dL Hct (39.0-53.0) % MCH (25.0-35.0) pg MCHC (31.0-37.0) g/dL RDW (11.5-15.5) % Neutrophils # (Manual) (1.3-7.7) k/uL APTT 49.2 H (22.0-30.0) sec ABG HCO3 (21-25) mmol/L ABG Total CO2 (19-24) mmol/L ABG O2 Saturation (94-97) % Hemoglobin (13.0-17.5) gm/dL BUN (9-20) mg/dL Creatinine (0.66-1.25) mg/dL Glucose (74-99) mg/dL POC Glucose (mg/dL) 283 H 284 H (70-110) mg/dL Calcium (8.4-10.2) mg/dL Total Protein (6.3-8.2) g/dL Albumin (3.5-5.0) g/dL 08/19/24 08/19/24 08/20/24 Range/Units 20:19 23:39 04:45 WBC (3.8-10.6) k/uL RBC (4.30-5.90) m/uL Hgb (13.0-17.5) gm/dL Hct (39.0-53.0) % MCH (25.0-35.0) pg MCHC (31.0-37.0) g/dL RDW (11.5-15.5) % Neutrophils # (Manual) (1.3-7.7) k/uL APTT (22.0-30.0) sec ABG HCO3 (21-25) mmol/L ABG Total CO2 (19-24) mmol/L ABG O2 Saturation (94-97) % Hemoglobin (13.0-17.5) gm/dL BUN 42 H (9-20) mg/dL Creatinine 1.31 H (0.66-1.25) mg/dL Glucose 229 H (74-99) mg/dL POC Glucose (mg/dL) 282 H 258 H (70-110) mg/dL Calcium 8.0 L (8.4-10.2) mg/dL Total Protein 4.8 L (6.3-8.2) g/dL Albumin 2.0 L (3.5-5.0) g/dL 08/20/24 08/20/24 08/20/24 Range/Units 04:45 04:53 05:25 WBC 14.8 H (3.8-10.6) k/uL RBC 3.03 L (4.30-5.90) m/uL Hgb 7.1 L (13.0-17.5) gm/dL Hct 25.6 L (39.0-53.0) % MCH 23.4 L (25.0-35.0) pg MCHC 27.6 L (31.0-37.0) g/dL RDW 20.1 H (11.5-15.5) % Neutrophils # (Manual) 12.40 H (1.3-7.7) k/uL APTT (22.0-30.0) sec ABG HCO3 28 H (21-25) mmol/L ABG Total CO2 29 H (19-24) mmol/L ABG O2 Saturation 98.4 H (94-97) % Hemoglobin 7.1 L (13.0-17.5) gm/dL BUN (9-20) mg/dL Creatinine (0.66-1.25) mg/dL Glucose (74-99) mg/dL POC Glucose (mg/dL) 261 H (70-110) mg/dL Calcium (8.4-10.2) mg/dL Total Protein (6.3-8.2) g/dL Albumin (3.5-5.0) g/dL 08/20/24 Range/Units 06:55 WBC (3.8-10.6) k/uL RBC (4.30-5.90) m/uL Hgb (13.0-17.5) gm/dL Hct (39.0-53.0) % MCH (25.0-35.0) pg MCHC (31.0-37.0) g/dL RDW (11.5-15.5) % Neutrophils # (Manual) (1.3-7.7) k/uL APTT 54.4 H (22.0-30.0) sec ABG HCO3 (21-25) mmol/L ABG Total CO2 (19-24) mmol/L ABG O2 Saturation (94-97) % Hemoglobin (13.0-17.5) gm/dL BUN (9-20) mg/dL Creatinine (0.66-1.25) mg/dL Glucose (74-99) mg/dL POC Glucose (mg/dL) (70-110) mg/dL Calcium (8.4-10.2) mg/dL Total Protein (6.3-8.2) g/dL Albumin (3.5-5.0) g/dL Assessment and Plan Plan: Assessment: 1. Acute kidney injury secondary to ATN. Creatinine 1.5 in January 2024 and 2.5 this admission. Renal function improving. Creatinine 1.31. Nonoliguric. No hydronephrosis noted on CT. 2. Perforated gastric ulcer with pneumoperitoneum status post ex lap with closure of ulcer August 13, 2024. 3. Septic shock on vasopressor support. 4. Metabolic acidosis secondary to acute kidney injury and lactic acidosis. Improved. 5. Diabetes mellitus. 6. A-fib with RVR. On oral meds. Cardiology following. 7. Volume overload. Improving with diuresis. Plan: Maintain Lasix. TPN per surgery. Potassium being replaced. Wean FiO2 and vasopressors. Continue to monitor renal function and urine output.
[2024-08-20 12:18] LABS: Glucose,Whole Blood 265 mg/dL (70-110)
--- NOTE | 2024-08-20 12:29 | P.PN ---
Subjective Progress Note Date: 08/20/24 On 08/14/2024, this patient is being seen for a follow-up. The patient is postop day #2. The patient was found to have a perforated gastric ulcer with pneumoperitoneum. The patient underwent expected laparotomy abdominal washout and a modified Kiet patch. The patient is postop day #2. This morning, the patient remains intubated on mechanical ventilator. The patient on propofol running at 40 mcg/kg/min. Remains on active drinking at 125 cc an hour. Remains on norepinephrine running at 0.11 mcg/kg/min and vasopressin physiologic dose. On a mechanical ventilator, assist-control mode with rate of 18, tidal volume of 500, FiO2 30% with a PEEP of 5. Blood gas with a pH of 7.38 with a pCO2 of 33 and pO2 of 79. The patient's rhythm is atrial fibrillation. The patient has a ABDIAZIZ drain output is minimal at this point, the patient is covered with a combination of Zosyn and Diflucan. The patient received a total of 2 units of packed RBC postop. Blood work from today shows a WBC count of 26, hemoglobin 9.5 and a platelet count of 457. Sodium is at 139, BUN is 18 with a creatinine of 2.5 and a BUN of 71. Serum bicarbonate of 18. The patient does have an underlying acute on top of chronic kidney disease. He is febrile with a temperature of 101.7. He remains tachycardic. On 08/15/2024, the patient is being seen for a follow-up. This morning, the patient is still intubated on the mechanical ventilator. The patient sedated on propofol which is running at 40 mcg/kg/min. Remains on a mechanical ventilator assist-control mode at rate of 18, tidal volume of 500, FiO2 of 30% with a PEEP of 5. Blood gas from today showed a pH of 7.45 with a pCO2 of 35 and pO2 of 75. Chest x-ray from today shows ET tube in adequate location. Findings are consistent with CHF and volume overload and some worsening in the left basilar opacity/atelectasis. Hemodynamically, the patient remains in atrial fibrillation. Heart rate is under better control. The patient is on Cardizem drip that this has been weaned down to 2.5 mg an hour and the patient remains on IV heparin this was tolerated yesterday. At the same time, the patient remains on norepinephrine running at 0.1 mcg/kg/min and vasopressin physiologic dose. Lactated Ringer's running at a rate of 125 cc an hour and the patient is a positive fluid balance of 2.4 L. ABDIAZIZ output is minimal in the order of 5 to 10 cc over the past 12 hours. NG output is also minimal. Rest of the blood work showed a white cell count of 27.7, hemoglobin 8.5 and a platelet count of 407. The sodium levels at 141, BUN 58 with a creatinine of 2.1. Serum bicarb is at 23 and the chloride is 109. Glucose is 870. The blood cultures are still negat venkata.Echocardiogram showed a impaired LV function with ejection fraction of 35 to 40%. Right ventricular systolic pressure is at 54. 08/16/2024, patient is being seen for a follow-up in the intensive care unit. This morning, the patient remains intubated on mechanical ventilator. The patient sedated on propofol running at 40 mcg/kg/min. The patient is on assist- control mode with rate of 18, tidal volume of 500, FiO2 30% with a PEEP of 5. Blood gas showed a pH of 7.46 with a pCO2 of 37 and pO2 of 71. Chest x-ray from this morning shows worsening pulmonary vascular congestion and cardiomegaly with development of bilateral pleural effusions. There are some atelectatic changes in lung bases bilaterally. The patient was started on TPN which is currently running at 30 cc an hour. IV fluids are currently at KVO. Output from the NG tube is minimal in the order of 10 cc over the past 8 hours, output from the ABDIAZIZ is minimal in the order of 10 cc an hour. The patient is in atrial fibrill ation. The patient is having occasional PVCs. Remains on Cardizem drip at 2.5 mg an hour and the patient is also on IV heparin. Norepinephrine is running at 0.09 mcg/kg/min. The white cell count is improved and is currently down to 20 with a hemoglobin of 8 and a platelet count of 345. BUN is 49 with a creatinine of 1.87. Sodium levels at 142, potassium level is at 3.7, chloride is 110. Rem ains on a combination of Zosyn and Diflucan. On 08/17/2024, patient is being seen for a follow-up. This morning, the patient remains on propofol which is running at 40 mcg/kg/min. The patient was given sedation holiday yesterday. This was reported as the patient started having significant activities. The cardiac rhythm remains atrial fibrillation with controlled rate. This morning, the patient is calm and comfortable on propofol. He is on assist-control mode of mechanical ventilation at rate of 14, tidal volume of 500, FiO2 of 30% with a PEEP of 5. IV fluids are currently at KVO and the patient remains on TPN at a rate of 50 cc an hour. The patient is on low- dose norepinephrine running at 0.01 mcg/kg/min. The blood gas showed a pH of 7.46 with a pCO2 35 and pO2 of 70. Chest x-ray shows atelectatic changes and bilateral pleural effusions. NG tube output is in order of 100 cc over the past 8 hours. ABDIAZIZ output is in the order of 60 cc over the past 12 hours. The patient remains on IV heparin. The patient is off the Cardizem drip for now. The rest of the blood work shows a white cell count of 18, hemoglobin of 7.5 and a platelet count of 305. The sodium levels at 142, potassium level 3.8, chloride 112 and the bicarbonate is a 24. BUN 39 and a creatinine of 1.6. Blood sugars are elevated and the Lantus insulin dose will be further adjusted. No fever. No other significant events. Abdominal wound is dry clean and intact. 08/18/2024, the patient is being seen for a follow-up. She had another sedation holiday because of tachypnea and restlessness and asynchrony with a mechanical ventilator. This morning, he is on propofol. Will do a gradual propofol wean and use Precedex if needed. He is currently on propofol running at 20 mcg/kg/min. Remains on assist-control mode at rate of 14, tidal volume of 500, FiO2 of 30% with a PEEP of 5. Blood gas showed a pH of 7.43 with a pCO2 of 39 and pO2 of 88. Chest x-ray is unchanged and there is atelectatic change in the fusion lung base bilaterally. Remains on TPN for nutritional support with rate of 50 cc an hour. IV fluids are KVO. NG output is in the order of 200 cc over the past 24 hours. ABDIAZIZ output is in the order of 45 cc. Remains on norepinephrine at a dose of 0.01 mcg/kg/min. The fluid balance is -1.2 L over the past 24 hours and the patient remains on IV Lasix 40 mg every 12 hours. The patient is also on Zosyn and Diflucan. Afebrile. Hemodynamically stable with low-dose pressors. The white cell count is 18, hemoglobin 7.4 and a platelet count of 335. The BUN is 38 with a creatinine of 1.4. Sodium is at 142, bicarb is at 24. Blood sugars at 230 and Lantus dose has been modified. No other significant events overnight. On 08/19/2024, the patient is being seen for a follow-up. Remains intubated on mechanical ventilatory patient has been off propofol for the past 24 hours. He is opening his eyes and moving. Nevertheless, is not following commands yet. He continues to be quite sedated. As such, no weaning trials have been done awaiting further improvement in his mentation. Cardiac rhythm is atrial fibrillation and the patient remains on IV heparin. Rate is controlled. Remains on low-dose norepinephrine which is running at 0.05 mcg/kg/min. He is on TPN at rate of 80 cc an hour. He is on the IV Lasix 40 mg every 12 hours and the fluid balance -238 cc over the past 24 hours. He is on the mechanical ventilator assist-control mode at rate of 14, tidal volume of 500, FiO2 of 30% with a PEEP of 5. Blood gas showed a pH of 7.43 with a pCO2 of 39 and pO2 of 95. NG tube output has been 50 cc over the past 12 hours. ABDIAZIZ output is minimal. Blood work from today shows a white cell count of 17, hemoglobin 7.3 and a platelet count of 319. Sodium is at 143, BUN 37 and the creatinine is at 1.45. Remains on Zosyn and Diflucan. Blood sugar control with Lantus. On 08/20/2024, the patient is off sedation the patient has been off propofol for the past 48 hours. He is still not fully awake. He moves around. Withdraws to painful stimulation. At times, he gets slightly restless. Nevertheless, he is not awake and he is not following any commands and his level of alertness remains quite diminished. For that reason, I recommended a CAT scan of the head to investigate ongoing altered mentation. The patient remains on the mechanical ventilator assist-control mode rate of 14, tidal volume of 500, FiO2 30% with a PEEP of 5. Blood gas showed a pH of 7.44 with pCO2 41 and pO2 of 97. Fluid balance is negative to 11 cc over the past 24 hours. Hemoglobin stable at 7.1 and the creatinine is down to 1.3. The patient remains on low-dose norepinephrine running at 0.02 mcg/kg/min. NG tube output is in the order of 150 cc over the past 24 hours and the patient was started on TPN for additional support. IV fluids are currently at KVO. The patient continues to be in atrial fibrillation with a controlled rate. The patient is having frequent ectopies. The patient remains on IV heparin. Antibiotic coverage include Zosyn and anticoagulation with Diflucan. He is being diuresed with IV Lasix 40 mg p.o. 12 hours and a dose will be modified. The patient is on Lantus insulin 20 units twice a day and sliding scale coverage. No other significant events overnight. Objective - Vital Signs Vital signs: Vital Signs Temp 98.6 F 08/20/24 04:00 Pulse 104 H 08/20/24 08:14 Resp 12 08/20/24 07:45 BP 118/66 08/20/24 07:45 Pulse Ox 96 08/20/24 07:45 FiO2 30 08/20/24 07:59 Intake & Output 08/19/24 08/20/24 08/20/24 18:59 06:59 18:59 Intake Total 2640.035 1455 90 Output Total 2087 2220 150 Balance 553.035 -765 -60 Weight 114 kg Intake: IV 1280 1205 90 .9NS KVO 125 120 10 Fluconazole in NaCl,Iso- 100 Osm 200 mg In Saline 1 100ml.bag @ 100 mls/hr IVPB DAILY [facility] Rx#: [id number] Mvi, Adult No.4 with Vit 880 960 80 K 10 ml Trace (Conc-1Ml/ Dose) 1 ml Sodium Acetate 16 meq Potassium Acetate 14 meq Potassium Phosphate 21 mmol Magnesium Sulfate gm 0.75 gm Calcium Gluconate 1 gm In Amino Acids 5 %/ Dextrose 20 % 1,000 ml @ 75 mls/hr IV .[id number] [facility] Rx#:[id number] Piperacillin-Tazobactam 3 175 125 .375 gm In Sodium Chloride 0.9% 100 ml @ 25 mls/hr IVPB Q8HR [facility] Rx# :[id number] Intake, IV Titration 1360.035 250 Amount Heparin Sod,Pork in 0.45% 213.423 250 NaCl 25,000 unit In 0.45 % NaCl 1 250ml.bag @ 6. 826 UNITS/KG/HR 10 mls/hr IV .Q24H [facility] Rx#: [id number] Norepinephrine 32 mg In 37.612 Sodium Chloride 0.9% 218 ml @ 0.03 MCG/KG/MIN 2.06 mls/hr IV .Q24H [facility] Rx#: [id number] Sodium Acetate 16 meq 1109 Potassium Acetate 14 meq Potassium Phosphate 9 mmol Magnesium Sulfate gm 0.5 gm Calcium Gluconate 1 gm In Amino Acid 5%- D15w 1,000 ml @ 80 mls/hr IV .BY DURATION [facility] Rx#: [id number] Output: Gastric Drainage 50 Drainage 2 20 Right abdominal ABDIAZIZ drain 2 20 Urine 2084 2049 150 Emesis 100 Other: Voiding Method Indwelling Catheter Indwelling Catheter ABP, PAP, CO, CI - Last Documented Arterial Blood Pressure 81/57 - Exam GENERAL EXAM: Intubated, sedated 79-year-old male patient, on mechanical alphonso tilator. Calm and comfortable off propofol, mental status clear remains quite diminished and the patient is not following any commands yet. He moves all 4 extremities without any limitation. HEAD: Normocephalic. EYES: Sluggish reaction of pupils, equal size. NOSE: Clear with pink turbinates. THROAT: Oral endotracheal and gastric tube secured in place. No erythema or exudates. NECK: No masses, no JVD. Right IJ triple-lumen catheter in place. CHEST: No chest wall deformity. LUNGS: Equal air entry with no crackles, wheeze, rhonchi or dullness. CVS: S1 and S irregular consistent with atrial fibrillation with no audible murmur, irregular rhythm. The rate is controlled. No significant ectopy is on today's evaluation. ABDOMEN: Abdominal dressing dry and intact. ABDIAZIZ drain in place. No hepat osplenomegaly. SPINE: No scoliosis or deformity SKIN: No rashes CENTRAL NERVOUS SYSTEM: Sedated, tone is normal in all 4 extremities. EXTREMITIES: Left radial arterial line in place. There is no peripheral edema. No clubbing, no cyanosis. Peripheral pulses are intact. - Labs CBC & Chem 7: 08/20/24 04:45 08/20/24 04:45 Labs: Abnormal Lab Results - Last 24 Hours (Table) 08/19/24 08/19/24 08/19/24 Range/Units 12:11 13:49 18:09 WBC (3.8-10.6) k/uL RBC (4.30-5.90) m/uL Hgb (13.0-17.5) gm/dL Hct (39.0-53.0) % MCH (25.0-35.0) pg MCHC (31.0-37.0) g/dL RDW (11.5-15.5) % Neutrophils # (Manual) (1.3-7.7) k/uL APTT 49.2 H (22.0-30.0) sec ABG HCO3 (21-25) mmol/L ABG Total CO2 (19-24) mmol/L ABG O2 Saturation (94-97) % Hemoglobin (13.0-17.5) gm/dL BUN (9-20) mg/dL Creatinine (0.66-1.25) mg/dL Glucose (74-99) mg/dL POC Glucose (mg/dL) 283 H 284 H (70-110) mg/dL Calcium (8.4-10.2) mg/dL Total Protein (6.3-8.2) g/dL Albumin (3.5-5.0) g/dL 08/19/24 08/19/24 08/20/24 Range/Units 20:19 23:39 04:45 WBC (3.8-10.6) k/uL RBC (4.30-5.90) m/uL Hgb (13.0-17.5) gm/dL Hct (39.0-53.0) % MCH (25.0-35.0) pg MCHC (31.0-37.0) g/dL RDW (11.5-15.5) % Neutrophils # (Manual) (1.3-7.7) k/uL APTT (22.0-30.0) sec ABG HCO3 (21-25) mmol/L ABG Total CO2 (19-24) mmol/L ABG O2 Saturation (94-97) % Hemoglobin (13.0-17.5) gm/dL BUN 42 H (9-20) mg/dL Creatinine 1.31 H (0.66-1.25) mg/dL Glucose 229 H (74-99) mg/dL POC Glucose (mg/dL) 282 H 258 H (70-110) mg/dL Calcium 8.0 L (8.4-10.2) mg/dL Total Protein 4.8 L (6.3-8.2) g/dL Albumin 2.0 L (3.5-5.0) g/dL 08/20/24 08/20/24 08/20/24 Range/Units 04:45 04:53 05:25 WBC 14.8 H (3.8-10.6) k/uL RBC 3.03 L (4.30-5.90) m/uL Hgb 7.1 L (13.0-17.5) gm/dL Hct 25.6 L (39.0-53.0) % MCH 23.4 L (25.0-35.0) pg MCHC 27.6 L (31.0-37.0) g/dL RDW 20.1 H (11.5-15.5) % Neutrophils # (Manual) 12.40 H (1.3-7.7) k/uL APTT (22.0-30.0) sec ABG HCO3 28 H (21-25) mmol/L ABG Total CO2 29 H (19-24) mmol/L ABG O2 Saturation 98.4 H (94-97) % Hemoglobin 7.1 L (13.0-17.5) gm/dL BUN (9-20) mg/dL Creatinine (0.66-1.25) mg/dL Glucose (74-99) mg/dL POC Glucose (mg/dL) 261 H (70-110) mg/dL Calcium (8.4-10.2) mg/dL Total Protein (6.3-8.2) g/dL Albumin (3.5-5.0) g/dL 08/20/24 Range/Units 06:55 WBC (3.8-10.6) k/uL RBC (4.30-5.90) m/uL Hgb (13.0-17.5) gm/dL Hct (39.0-53.0) % MCH (25.0-35.0) pg MCHC (31.0-37.0) g/dL RDW (11.5-15.5) % Neutrophils # (Manual) (1.3-7.7) k/uL APTT 54.4 H (22.0-30.0) sec ABG HCO3 (21-25) mmol/L ABG Total CO2 (19-24) mmol/L ABG O2 Saturation (94-97) % Hemoglobin (13.0-17.5) gm/dL BUN (9-20) mg/dL Creatinine (0.66-1.25) mg/dL Glucose (74-99) mg/dL POC Glucose (mg/dL) (70-110) mg/dL Calcium (8.4-10.2) mg/dL Total Protein (6.3-8.2) g/dL Albumin (3.5-5.0) g/dL Assessment and Plan Plan: Acute abdominal pain secondary to perforated gastric ulcer with pneumoperitoneum. Status post exploratory laparotomy, abdominal washout and modified Kiet patch. Postoperative day # 8. Hemodynamically improved and the patient is currently off sedation for the past 48 hours.. Mental status is not fully recovered and the patient is not following commands yet. Acute sepsis with hypotension secondary to above, patient remains hypotensive and the patient continues to have leukocytosis. Covered with a combination of Zosyn and Diflucan. Has been adequately fluid resuscitated. The patient remains on low-dose norepinephrine running at 0.02 mcg/kg/min. Hypotension requiring pressor support, still on low-dose norepinephrine Third spacing and edema in all 4 extremities, currently on IV Lasix. Chest x- ray also shows some atelectatic changes and bilateral pleural effusions. The patient is currently on IV Lasix Acute hypoxic respiratory failure secondary to above. This is an expected outcome of gastric perforation and sepsis. The patient remains intubated on the mechanical ventilator and the patient has developed bilateral pleural effusion and atelectatic change in lung bases along with pulm vessel congestion. Systolic heart failure with ejection fraction of 35% Acute blood loss anemia, received 2 units of packed red blood cells, hemoglobin stable Leukocytosis secondary to above,, white cell count remains elevated, slowly improving Acute kidney injury secondary to above on top of chronic kidney disease, creatinine is improving and the creatinine is down to 1.3 Chronic atrial fibrillation, rate controlled on IV Lopressor 5 mg every 8 hours and IV heparin History of hypertension Non-smoker History of prostate cancer Plan: Keep the patient off propofol and monitor mentation. Obtain a noncontrast CAT scan of the chest Continue vent support no changes Chest x-ray findings are stable Change IV fluids to KVO Continue IV heparin watch for any signs of bleeding The patient remains on pressors and the patient is on low-dose norepinephrine Monitor renal function, improving Monitor white cell count, improving Monitor cultures Continue Zosyn and Diflucan Continue Lasix 40 mg IV every 8 hours and a dose of the increased TPN at a rate of 80 cc an hour Monitor the NG output and the output from the ABDIAZIZ drain Change Lantus to 20 units twice daily along with a sliding scale insulin coverage We will continue to follow and make further recommendations based on his clinical status Critical care evaluation, 33 minutes. Time with Patient: Greater than 30
--- NOTE | 2024-08-20 13:24 | CT ---
EXAMINATION TYPE: CT brain wo con CT DLP: 1261.4 mGycm, Automated exposure control for dose reduction was used. DATE OF EXAM: 08/20/2024 1:19 PM COMPARISON: PET CT 07/13/2024 CLINICAL INDICATION:Male, 79 years old with history of altered mental status, no sedation >48 hours, AMS no sedation > 48 hours post op TECHNIQUE: Brain: Multiple axial CT images of the brain were obtained without IV contrast. . Coronal and sagitta l reformats reviewed. FINDINGS: Brain: Extra-axial spaces: No abnormal extra-axial fluid collections. Ventricular system: Dilatation in proportion to cerebral atrophy. Cerebral parenchyma: Cerebral atrophy. No acute intraparenchymal hemorrhage or mass effect. The carrasquillo -white junction is well differentiated. Confluent hypoattenuating areas are seen within the subcortic al and periventricular white matter. Cerebellum: Unremarkable. Mass effect: No evidence of midline shift. Intracranial vasculature: Atherosclerotic calcifications of the intracranial vessels. Soft tissues: Normal. Calvarium/osseous structures: No depressed skull fracture. Paranasal sinuses and mastoid air cells: Mild scattered paranasal sinus disease. The mastoid air cell s are clear. Visualized orbits: Orbital contents are intact. Other: Partial visualization of NG and endotracheal tubes. IMPRESSION: 1. No acute intracranial process. 2. Advanced nonspecific white matter changes, likely secondary to chronic small vessel ischemic disea se. [facility], , 08/20/2024 1:22 PM
--- NOTE | 2024-08-20 14:10 | P.PN ---
Subjective Progress Note Date: 08/20/24 This is a 79-year-old male who was monitored in the intensive care unit. He is postoperative day #2 repair of perforated gastric ulcer with Kiet patch. He remains sedated and intubated on the mechanical ventilator. Patient has been febrile with a Tmax of 101.7 axillary in the last 24 hours. He was noted to be in atrial fibrillation with RVR and has been started on IV Cardizem. Eliquis remains on hold postsurgically. Patient continues on multiple antibiotic therapy including IV fluconazole IV Zosyn with infectious disease following closely. He is currently sedated with propofol he is requiring Levophed and vasopressin support. Blood culture remains negative so far. Labs reveal a white blood cell complement 3.7, hemoglobin 9.5, sodium 139, potassium 4.1, BUN of 31 creatinine 3.52 calcium of 6.8 chest x-ray today reveals continued CHF exacerbation and fluid overload state with no significant for 1 day earlier. Patient does have hypotensive bowel sounds. 08/15/2024 Patient is evaluated in the ICU he remains on the mechanical ventilator with PEEP of 5 and FiO2 of 30%. He is postoperative day #3 repair of perforated gastric ulcer with kiet patch. Currently sedated with propofol. Chest xray findings suggest continued CHF exacerbation fluid over load state. worsening left basilar opacity could reflect acute infiltrate and or atelectasis. Correlate clinically. White blood cell count 27.7, hgb 8.5, sodium 141, potassium 3.9, BUN 58, creatinine 2.10. Magnesium 1.8. 08/16/2024 Patient is evaluated today in the intensive care unit he is postoperative day #4 to get with Kiet patch. Patient remains sedated with propofol. He is currently intubated and on mechanical ventilator with a PEEP of 5 and FiO2 of 30%. Chest x-ray today reveals worsening CHF. His white blood cell count today is 20.9, hemoglobin 8, BUN of 49 creatinine of 1.87. Patient remains on room. He was having runs of V. tach and was taken off IV Cardizem started on an oral metoprolol on an outpatient basis. his heart rate is controlled. He continues on IV Zosyn. He remains on IV fluconazole. Blood sugars are elevated after the start of TPN. He was started on a small dose of Lantus and we will continue to monitor and make adjustments as needed. 08/17/2024 Patient is evaluated today in the ICU. He remains sedated and intubated on the mechanical ventilator. PEEP of 5 and FiO2 of 40%. Patient currently undergoing sedation holiday and has not been responsive. Patient received IV lasix x 1 and has since been started on IV lasix 40 mg [id number]. Patient remains on IV heparin. Continues on IV metoprolol and no further reports of ectopi noted. White blood cell count 18.0, hgb 7.5, BUN 39, creatinine 1.64. Blood glucose remains elevated in the 200s. Chest xray today reveals continued CHF. 08/18/2024 Patient is evaluated in follow-up in the intensive care unit. He remains sedated and intubated on mechanical ventilator. Patient is a PEEP of 5 and FiO2 of 40%. Labs today reveals white blood cell count 18.4, hgb 7.4, BUN 38, creatinine 1.45. Blood glucose in the 200s. Patient remains on IV fluconazole and IV zosyn. Remains on IV heparin. Patient on small dose of levo. Continues on TPN. Patient had low grade fever 100.1 overnight. 08/19/2024 Patient is eval seen in follow-up in the intensive care unit. He remains sedated and intubated on mechanical ventilator. He is any sedation held today and is more awake alert with spontaneous eye opening and tracking. His daughter is at the bedside. Ventilator settings were adjusted and he continues on a PEEP of 5 with an FiO2 of 30%. He remains on IV fluconazole and IV Zosyn. Chest x- ray today reveals stable findings suggestive of CHF overload state. He continues on IV Lasix which was increased to 40 mg every 8 hours. He continues on IV heparin. He is on a small dose of Levophed. 08/20/2024 Patient is evaluated in follow-up in the intensive care unit. Patient remains a sedated intubated on the mechanical ventilator his FiO2 remains at 30%. He is more awake alert and oriented. Family at the bedside. Patient continues on a course of IV fluconazole and IV Zosyn. ID following closely. He remains on IV heparin. Patient continues with TPN. He remains on IV Lasix 40 mg every 8 hours. Chest x-ray today reveals CHF. Labs today white blood cell count 14.8, hemoglobin 7.1, BUN of 42 creatinine of 1.31 sodium of 143. To complete a review of systems as patient is currently intubated and sedated in the intensive care unit PHYSICAL EXAMINATION: GENERAL: The patient is sedated, not in any acute distress. Well developed, well nourished. Pale HEENT: Pupils are round and equally reacting to light. EOMI. No scleral icterus. No conjunctival pallor. Normocephalic, atraumatic. No pharyngeal erythema. No thyromegaly. CARDIOVASCULAR: S1 and S2 present. No murmurs, rubs, or gallops. PULMONARY: Chest is clear to auscultation, no wheezing or crackles. ABDOMEN: Soft, nontender, nondistended, Hypoactive bowel sounds. No palpable organomegaly. Mid line incision intact no surrounding erythema or drainage MUSCULOSKELETAL: No joint swelling or deformity. EXTREMITIES: No cyanosis, clubbing, or pedal edema. NEUROLOGICAL: Gross neurological examination did not reveal any focal deficits. SKIN: No rashes. Assessment and plan Perforated gastric ulcer pneumoperitoneum postoperative day #7 surgical repair with Kiet patch Septic shock secondary to above Acute kidney injury due to acute tubular necrosis from infection Atrial fibrillation with rapid ventricular rate Acute CHF exacerbation, systolic dysfunction EF 35-40%. History of fibrillation anticoagulant Eliquis Diabetes mellitus type 2 History of stage III pancreatic cancer History hypertension Hyperlipidemia VTE prophylaxis as per primary GI prophylaxis Xarelto remains on hold and patient continues on IV heparin Full code Plan Due to runs of V. tach Cardizem has been discontinued patient is been started on IV push Lopressor Cardiology following Patient on IV heparin Started on IV lasix 40 mg Q8 hour Continue IV fluconazole IV Zosyn; ID following cultures Mechanical ventilator per fast food sales assistant Patient remains n.p.o. and unable to take his oral home medications at this time Continue on TPN Patient to be started on TPN blood sugars are elevated patient was started on Lantus 10 units daily and will continue to monitor blood glucose remains elevated will increase Lantus continues on Accu-Cheks every 6 hours sliding scale insulin. Monitor electrolytes and renal function. The impression and plan of care has been dictated by Linda Keenan Nurse Practitioner as directed. Dr. Cam MD I have performed a history and physical examination and medical decision making of this patient, discussed the same with the dictator, and agree with the dictators assessment and plan as written, documented as a scribe. Based on total visit time, I have performed more than 50% of this visit. Objective - Vital Signs Vital signs: Vital Signs Temp 98.6 F 08/20/24 04:00 Pulse 104 H 08/20/24 08:14 Resp 12 08/20/24 07:45 BP 118/66 08/20/24 07:45 Pulse Ox 96 08/20/24 07:45 FiO2 30 08/20/24 07:59 Intake & Output 08/19/24 08/20/24 08/20/24 18:59 06:59 18:59 Intake Total 2640.035 1455 118.359 Output Total 2087 2220 150 Balance 553.035 -765 -31.641 Weight 114 kg Intake: IV 1280 1205 90 .9NS KVO 125 120 10 Fluconazole in NaCl,Iso- 100 Osm 200 mg In Saline 1 100ml.bag @ 100 mls/hr IVPB DAILY [facility] Rx#: [id number] Mvi, Adult No.4 with Vit 880 960 80 K 10 ml Trace (Conc-1Ml/ Dose) 1 ml Sodium Acetate 16 meq Potassium Acetate 14 meq Potassium Phosphate 21 mmol Magnesium Sulfate gm 0.75 gm Calcium Gluconate 1 gm In Amino Acids 5 %/ Dextrose 20 % 1,000 ml @ 75 mls/hr IV .[id number] [facility] Rx#:[id number] Piperacillin-Tazobactam 3 175 125 .375 gm In Sodium Chloride 0.9% 100 ml @ 25 mls/hr IVPB Q8HR [facility] Rx# :[id number] Intake, IV Titration 1360.035 250 28.359 Amount Heparin Sod,Pork in 0.45% 213.423 250 NaCl 25,000 unit In 0.45 % NaCl 1 250ml.bag @ 6. 826 UNITS/KG/HR 10 mls/hr IV .Q24H [facility] Rx#: [id number] Norepinephrine 32 mg In 37.612 28.359 Sodium Chloride 0.9% 218 ml @ 0.03 MCG/KG/MIN 2.06 mls/hr IV .Q24H [facility] Rx#: [id number] Sodium Acetate 16 meq 1109 Potassium Acetate 14 meq Potassium Phosphate 9 mmol Magnesium Sulfate gm 0.5 gm Calcium Gluconate 1 gm In Amino Acid 5%- D15w 1,000 ml @ 80 mls/hr IV .BY DURATION [facility] Rx#: [id number] Output: Gastric Drainage 50 Drainage 2 20 Right abdominal ABDIAZIZ drain 2 20 Urine 2084 2049 150 Emesis 100 Other: Voiding Method Indwelling Catheter Indwelling Catheter ABP, PAP, CO, CI - Last Documented Arterial Blood Pressure 81/57 - Labs CBC & Chem 7: 08/20/24 04:45 08/20/24 04:45 Labs: Abnormal Lab Results - Last 24 Hours (Table) 08/19/24 08/19/24 08/19/24 Range/Units 12:11 13:49 18:09 WBC (3.8-10.6) k/uL RBC (4.30-5.90) m/uL Hgb (13.0-17.5) gm/dL Hct (39.0-53.0) % MCH (25.0-35.0) pg MCHC (31.0-37.0) g/dL RDW (11.5-15.5) % Neutrophils # (Manual) (1.3-7.7) k/uL APTT 49.2 H (22.0-30.0) sec ABG HCO3 (21-25) mmol/L ABG Total CO2 (19-24) mmol/L ABG O2 Saturation (94-97) % Hemoglobin (13.0-17.5) gm/dL BUN (9-20) mg/dL Creatinine (0.66-1.25) mg/dL Glucose (74-99) mg/dL POC Glucose (mg/dL) 283 H 284 H (70-110) mg/dL Calcium (8.4-10.2) mg/dL Total Protein (6.3-8.2) g/dL Albumin (3.5-5.0) g/dL 08/19/24 08/19/24 08/20/24 Range/Units 20:19 23:39 04:45 WBC (3.8-10.6) k/uL RBC (4.30-5.90) m/uL Hgb (13.0-17.5) gm/dL Hct (39.0-53.0) % MCH (25.0-35.0) pg MCHC (31.0-37.0) g/dL RDW (11.5-15.5) % Neutrophils # (Manual) (1.3-7.7) k/uL APTT (22.0-30.0) sec ABG HCO3 (21-25) mmol/L ABG Total CO2 (19-24) mmol/L ABG O2 Saturation (94-97) % Hemoglobin (13.0-17.5) gm/dL BUN 42 H (9-20) mg/dL Creatinine 1.31 H (0.66-1.25) mg/dL Glucose 229 H (74-99) mg/dL POC Glucose (mg/dL) 282 H 258 H (70-110) mg/dL Calcium 8.0 L (8.4-10.2) mg/dL Total Protein 4.8 L (6.3-8.2) g/dL Albumin 2.0 L (3.5-5.0) g/dL 08/20/24 08/20/24 08/20/24 Range/Units 04:45 04:53 05:25 WBC 14.8 H (3.8-10.6) k/uL RBC 3.03 L (4.30-5.90) m/uL Hgb 7.1 L (13.0-17.5) gm/dL Hct 25.6 L (39.0-53.0) % MCH 23.4 L (25.0-35.0) pg MCHC 27.6 L (31.0-37.0) g/dL RDW 20.1 H (11.5-15.5) % Neutrophils # (Manual) 12.40 H (1.3-7.7) k/uL APTT (22.0-30.0) sec ABG HCO3 28 H (21-25) mmol/L ABG Total CO2 29 H (19-24) mmol/L ABG O2 Saturation 98.4 H (94-97) % Hemoglobin 7.1 L (13.0-17.5) gm/dL BUN (9-20) mg/dL Creatinine (0.66-1.25) mg/dL Glucose (74-99) mg/dL POC Glucose (mg/dL) 261 H (70-110) mg/dL Calcium (8.4-10.2) mg/dL Total Protein (6.3-8.2) g/dL Albumin (3.5-5.0) g/dL 08/20/24 Range/Units 06:55 WBC (3.8-10.6) k/uL RBC (4.30-5.90) m/uL Hgb (13.0-17.5) gm/dL Hct (39.0-53.0) % MCH (25.0-35.0) pg MCHC (31.0-37.0) g/dL RDW (11.5-15.5) % Neutrophils # (Manual) (1.3-7.7) k/uL APTT 54.4 H (22.0-30.0) sec ABG HCO3 (21-25) mmol/L ABG Total CO2 (19-24) mmol/L ABG O2 Saturation (94-97) % Hemoglobin (13.0-17.5) gm/dL BUN (9-20) mg/dL Creatinine (0.66-1.25) mg/dL Glucose (74-99) mg/dL POC Glucose (mg/dL) (70-110) mg/dL Calcium (8.4-10.2) mg/dL Total Protein (6.3-8.2) g/dL Albumin (3.5-5.0) g/dL Assessment and Plan Time with Patient: Less than 30
--- NOTE | 2024-08-20 17:29 | PN ---
PROGRESS NOTE SUBJECTIVE: Clinton is a 79-year-old gentleman, who is admitted to hospital with perforated gastric ulcer and vent requiring respiratory failure. He remains intubated on vent, remains on IV heparin. Heart rate is reasonably well controlled on intravenous Lopressor. PHYSICAL EXAMINATION: VITAL SIGNS: Heart rate is 90 beats per minute, blood pressure is , respiratory rate is 18, O2, saturation is 97%. CHEST: Reveals good air entry bilaterally. HEART: Reveals first and second heart sounds. No gallop. EXTREMITIES: Reveals 1+ edema. LABORATORY DATA: Labs show a potassium of 3.6, creatinine is 1.3, hemoglobin is 7.1, which has remained stable over the last several days. ASSESSMENT AND PLAN: 1. Persistent atrial fibrillation. 2. Perforated gastric ulcer, status post surgery. 3. Vent requiring respiratory failure. MMODL / IJN: [id number] /
[2024-08-20 18:08] LABS: Glucose,Whole Blood 300 mg/dL (70-110)
[2024-08-21 01:17] LABS: Glucose,Whole Blood 258 mg/dL (70-110)
[2024-08-21 04:44] LABS: ABG Base Excess 4.9 mmol/L; ABG HCO3 29 mmol/L (21-25); ABG Oxygen Saturation 99.8 % (94-97); ABG PCO2 40 mmHg (35-45); ABG PH 7.47 (7.35-7.45); ABG PO2 136 mmHg (83-108); ABG TCO2 30 mmol/L (19-24); Allen Test Performed? Yes
[2024-08-21 05:06] LABS: Anisocytosis Moderate; HCT 24.1 % (39.0-53.0); Hypochromasia Marked; MCHC 28.6 g/dL (31.0-37.0); MCV 83.9 fL (80.0-100.0); Mean Platelet Volume 8.6; Microcytosis Slight; Platelet Count 315 k/uL (150-450); Poikilocytosis Slight; RBC 2.88 m/uL (4.30-5.90); RDW 20.3 % (11.5-15.5); WBC 13.7 k/uL (3.8-10.6)
[2024-08-21 05:10] LABS: HGB 6.9 gm/dL (13.0-17.5)
[2024-08-21 05:13] LABS: ALT 11 U/L (4-49); AST 23 U/L (17-59); African American GFR (CKD) 62 (>60 ml/min/1.73 sqM); Alkaline Phosphatase 93 U/L (38-126); Anion Gap 3 mmol/L; Blood Urea Nitrogen 44 mg/dL (9-20); Carbon Dioxide 32 mmol/L (22-30); Chloride 105 mmol/L (98-107); Glucose 178 mg/dL (74-99); Non-African American GFR(CKD) 53 (>60 ml/min/1.73 sqM); Phosphorus 3.5 mg/dL (2.5-4.5); Potassium 3.5 mmol/L (3.5-5.1); Sodium 140 mmol/L (137-145); Total Bilirubin 0.4 mg/dL (0.2-1.3); Total Protein 4.8 g/dL (6.3-8.2)
[2024-08-21 05:34] LABS: Band Neutrophils % 12 %; Eosinophils # (M) 0.14 k/uL (0-0.7); Lymphocytes # (M) 0.82 k/uL (1.0-4.8); Monocytes # (M) 0.41 k/uL (0-1.0); Neutrophils % (M) 78 %; Nucleated Red Blood Cells 0 /100 WBC (0-0); Total Cells Counted 200
[2024-08-21 05:36] LABS: Polychromasia Present
[2024-08-21] MEDS: POTASSIUM CHLORIDE 20 MEQ in WATER FOR INJECTION 1 100ML.BAG IVPB SCH (06:06)
[2024-08-21 06:21] LABS: Glucose,Whole Blood 245 mg/dL (70-110)
--- NOTE | 2024-08-21 07:11 | XR ---
EXAMINATION TYPE: XR chest 1V portable DATE OF EXAM: 08/21/2024 4:16 AM COMPARISON: Chest radiograph from one day prior. CLINICAL INDICATION: Male, 79 years old with history of Intubated; [facility] TECHNIQUE: XR chest 1V portable Frontal view of the chest. FINDINGS: Lungs/Pleura: Blunting of the right costophrenic angle. There is no evidence of left pleural effusio n, focal consolidation, or pneumothorax Pulmonary vascularity: Unremarkable. Heart/mediastinum: Cardiomediastinal silhouette is unremarkable. Musculoskeletal: No acute osseous pathology. Other findings: None Lines/Tubes: Endotracheal tube with distal tip 3.1 cm above the shakira. Nasogastric tube with its distal tip and side-port projecting under the diaphragm. Right internal jugular central venous catheter with distal tip at the cavoatrial junction. IMPRESSION: 1. Right pleural effusion. 2. Stable support jorge and tubes. [facility], , 08/21/2024 7:09 AM
--- NOTE | 2024-08-21 09:31 | P.PN ---
Subjective Progress Note Date: 08/21/24 The patient is a 79-year-old male who is currently admitted for perforated gastric ulcer. Patient remains intubated in the ICU. Cardiology has been consulted for atrial fibrillation management. He is currently on a heparin drip, as well as as needed metoprolol. Heart rates remain reasonably well-controlled. Echocardiogram revealed EF at 35 to 40%. GENERAL: Well-appearing, well-nourished and in no acute distress. Currently sedated on ventilator NECK: Supple without JVD or thyromegaly. LUNGS: Breath sounds clear to auscultation bilaterally. Respiration equal and unlabored. No wheezes, rales or rhonchi. HEART: Irregular rate and rhythm without murmurs, rubs or gallops. S1 and S2 heard. EXTREMITIES: Normal range of motion, mild edema. No clubbing or cyanosis. Peripheral pulses intact and strong. TELEMETRY: Atrial fibrillation, rate controlled LABS: WBC 13.7, hemoglobin 6.9, hematocrit 24.1, sodium 140, potassium 3.5, BUN 44, creatinine 1.28 IMPRESSION: Persistent atrial fibrillation Perforated gastric ulcer, status post exploratory laparotomy with modified Kiet patch repair Cardiomyopathy, EF 35 to 40% Pulmonary hypertension Hypoxic respiratory failure, currently ventilated Anemia, defer to primary team PLAN: Continue supportive treatment and wean from ventilator Continue heparin drip and transition to oral anticoagulation when able to take p.o. medications Further recommendations to be based on clinical course I am dictating on behalf of Dr Rui Pham's history/physical and assessment/plan. Objective - Vital Signs Vital signs: Vital Signs Temp 99.1 F 08/21/24 09:19 Pulse 97 08/21/24 09:19 Resp 14 08/21/24 09:19 BP 81/44 08/21/24 09:19 Pulse Ox 98 08/21/24 09:19 FiO2 30 08/21/24 04:28 Intake & Output 08/20/24 08/21/24 08/21/24 18:59 06:59 18:59 Intake Total 0585.120 9863.171 195 Output Total 1875 1620 100 Balance -168.849 -129.829 95 Weight 111.5 kg Intake: IV 1415 1240 195 .9NS KVO 155 180 15 Fluconazole in NaCl,Iso- 100 Osm 200 mg In Saline 1 100ml.bag @ 100 mls/hr IVPB DAILY [facility] Rx#: [id number] Magnesium Sulfate-D5w Pmx 100 1 gm In Dextrose/Water 1 100ml.bag @ 100 mls/hr IVPB ONCE ONE Rx#: [id number] Mvi, Adult No.4 with Vit 960 960 80 K 10 ml Trace (Conc-1Ml/ Dose) 1 ml Sodium Acetate 16 meq Potassium Acetate 14 meq Potassium Phosphate 21 mmol Magnesium Sulfate gm 0.75 gm Calcium Gluconate 1 gm In Amino Acids 5 %/ Dextrose 20 % 1,000 ml @ 75 mls/hr IV .[id number] [facility] Rx#:[id number] Potassium Chloride 10 meq 100 In Water For Injection 1 100ml.bag @ 100 mls/hr IVPB Q1H [facility] Rx#: [id number] Potassium Chloride 20 meq 100 100 In Water For Injection 1 100ml.bag @ 50 mls/hr IVPB Q2H [facility] Rx#: [id number] Intake, IV Titration 291.151 250.171 Amount Heparin Sod,Pork in 0.45% 250 250 NaCl 25,000 unit In 0.45 % NaCl 1 250ml.bag @ 6. 826 UNITS/KG/HR 10 mls/hr IV .Q24H [facility] Rx#: [id number] Norepinephrine 32 mg In 41.151 0.171 Sodium Chloride 0.9% 218 ml @ 0.03 MCG/KG/MIN 2.06 mls/hr IV .Q24H [facility] Rx#: [id number] Blood Product 0 Unit 0 Output: Drainage 20 Right abdominal ABDIAZIZ drain 20 Urine 1875 1600 100 Other: Voiding Method Indwelling Catheter Indwelling Catheter ABP, PAP, CO, CI - Last Documented Arterial Blood Pressure 126/54 - Labs CBC & Chem 7: 08/21/24 04:09 08/21/24 04:09 Labs: Abnormal Lab Results - Last 24 Hours (Table) 08/20/24 08/20/24 08/21/24 Range/Units 12:17 18:07 01:16 WBC (3.8-10.6) k/uL RBC (4.30-5.90) m/uL Hgb (13.0-17.5) gm/dL Hct (39.0-53.0) % MCH (25.0-35.0) pg MCHC (31.0-37.0) g/dL RDW (11.5-15.5) % Neutrophils # (Manual) (1.3-7.7) k/uL Lymphocytes # (Manual) (1.0-4.8) k/uL APTT (22.0-30.0) sec ABG pH (7.35-7.45) ABG pO2 (83-108) mmHg ABG HCO3 (21-25) mmol/L ABG Total CO2 (19-24) mmol/L ABG O2 Saturation (94-97) % Hemoglobin (13.0-17.5) gm/dL Carbon Dioxide (22-30) mmol/L BUN (9-20) mg/dL Creatinine (0.66-1.25) mg/dL Glucose (74-99) mg/dL POC Glucose (mg/dL) 265 H 300 H 258 H (70-110) mg/dL Calcium (8.4-10.2) mg/dL Total Protein (6.3-8.2) g/dL Albumin (3.5-5.0) g/dL Crossmatch 08/21/24 08/21/24 08/21/24 Range/Units 03:31 04:09 04:09 WBC 13.7 H (3.8-10.6) k/uL RBC 2.88 L (4.30-5.90) m/uL Hgb 6.9 L* (13.0-17.5) gm/dL Hct 24.1 L (39.0-53.0) % MCH 24.0 L (25.0-35.0) pg MCHC 28.6 L (31.0-37.0) g/dL RDW 20.3 H (11.5-15.5) % Neutrophils # (Manual) 12.30 H (1.3-7.7) k/uL Lymphocytes # (Manual) 0.82 L (1.0-4.8) k/uL APTT (22.0-30.0) sec ABG pH 7.47 H (7.35-7.45) ABG pO2 136 H (83-108) mmHg ABG HCO3 29 H (21-25) mmol/L ABG Total CO2 30 H (19-24) mmol/L ABG O2 Saturation 99.8 H (94-97) % Hemoglobin 6.7 L* (13.0-17.5) gm/dL Carbon Dioxide 32 H (22-30) mmol/L BUN 44 H (9-20) mg/dL Creatinine 1.28 H (0.66-1.25) mg/dL Glucose 178 H (74-99) mg/dL POC Glucose (mg/dL) (70-110) mg/dL Calcium 8.0 L (8.4-10.2) mg/dL Total Protein 4.8 L (6.3-8.2) g/dL Albumin 2.0 L (3.5-5.0) g/dL Crossmatch 08/21/24 08/21/24 08/21/24 Range/Units 04:09 05:29 06:19 WBC (3.8-10.6) k/uL RBC (4.30-5.90) m/uL Hgb (13.0-17.5) gm/dL Hct (39.0-53.0) % MCH (25.0-35.0) pg MCHC (31.0-37.0) g/dL RDW (11.5-15.5) % Neutrophils # (Manual) (1.3-7.7) k/uL Lymphocytes # (Manual) (1.0-4.8) k/uL APTT 43.0 H (22.0-30.0) sec ABG pH (7.35-7.45) ABG pO2 (83-108) mmHg ABG HCO3 (21-25) mmol/L ABG Total CO2 (19-24) mmol/L ABG O2 Saturation (94-97) % Hemoglobin (13.0-17.5) gm/dL Carbon Dioxide (22-30) mmol/L BUN (9-20) mg/dL Creatinine (0.66-1.25) mg/dL Glucose (74-99) mg/dL POC Glucose (mg/dL) 245 H (70-110) mg/dL Calcium (8.4-10.2) mg/dL Total Protein (6.3-8.2) g/dL Albumin (3.5-5.0) g/dL Crossmatch See Detail
[2024-08-21] MEDS: HYDROmorphone 0.5 MG/0.5 ML SYRINGE IVP PRN (11:31)
[2024-08-21 12:19] LABS: Glucose,Whole Blood 254 mg/dL (70-110)
--- NOTE | 2024-08-21 12:44 | P.PN ---
Subjective Progress Note Date: 08/21/24 Principal diagnosis: Acute pneumoperitoneum secondary to perforated gastric ulcer status post exploratory laparotomy, abdominal washout and modified Kiet patch procedure postoperative day #9 On 08/14/2024, this patient is being seen for a follow-up. The patient is postop day #2. The patient was found to have a perforated gastric ulcer with pneumoperitoneum. The patient underwent expected laparotomy abdominal washout and a modified Kiet patch. The patient is postop day #2. This morning, the patient remains intubated on mechanical ventilator. The patient on propofol running at 40 mcg/kg/min. Remains on active drinking at 125 cc an hour. Remains on norepinephrine running at 0.11 mcg/kg/min and vasopressin physiologic dose. On a mechanical ventilator, assist-control mode with rate of 18, tidal volume of 500, FiO2 30% with a PEEP of 5. Blood gas with a pH of 7.38 with a pCO2 of 33 and pO2 of 79. The patient's rhythm is atrial fibrillation. The patient has a ABDIAZIZ drain output is minimal at this point, the patient is covered with a combination of Zosyn and Diflucan. The patient received a total of 2 units of packed RBC postop. Blood work from today shows a WBC count of 26, hemoglobin 9.5 and a platelet count of 457. Sodium is at 139, BUN is 18 with a creatinine of 2.5 and a BUN of 71. Serum bicarbonate of 18. The patient does have an underlying acute on top of chronic kidney disease. He is febrile with a temperature of 101.7. He remains tachycardic. On 08/15/2024, the patient is being seen for a follow-up. This morning, the patient is still intubated on the mechanical ventilator. The patient sedated on propofol which is running at 40 mcg/kg/min. Remains on a mechanical ventilator assist-control mode at rate of 18, tidal volume of 500, FiO2 of 30% with a PEEP of 5. Blood gas from today showed a pH of 7.45 with a pCO2 of 35 and pO2 of 75. Chest x-ray from today shows ET tube in adequate location. Findings are consistent with CHF and volume overload and some worsening in the left basilar opacity/atelectasis. Hemodynamically, the patient remains in atrial fibrillation. Heart rate is under better control. The patient is on Cardizem drip that this has been weaned down to 2.5 mg an hour and the patient remains on IV heparin this was tolerated yesterday. At the same time, the patient remains on norepinephrine running at 0.1 mcg/kg/min and vasopressin physiologic dose. Lactated Ringer's running at a rate of 125 cc an hour and the patient is a positive fluid balance of 2.4 L. ABDIAZIZ output is minimal in the order of 5 to 10 cc over the past 12 hours. NG output is also minimal. Rest of the blood work showed a white cell count of 27.7, hemoglobin 8.5 and a platelet count of 407. The sodium levels at 141, BUN 58 with a creatinine of 2.1. Serum bicarb is at 23 and the chloride is 109. Glucose is 870. The blood cultures are still negative.Echocardiogram showed a impaired LV function with ejection fraction of 35 to 40%. Right ventricular systolic pressure is at 54. 08/16/2024, patient is being seen for a follow-up in the intensive care unit. This morning, the patient remains intubated on mechanical ventilator. The patient sedated on propofol running at 40 mcg/kg/min. The patient is on assist- control mode with rate of 18, tidal volume of 500, FiO2 30% with a PEEP of 5. Blood gas showed a pH of 7.46 with a pCO2 of 37 and pO2 of 71. Chest x-ray from this morning shows worsening pulmonary vascular congestion and cardiomegaly with development of bilateral pleural effusions. There are some atelectatic changes in lung bases bilaterally. The patient was started on TPN which is currently running at 30 cc an hour. IV fluids are currently at KVO. Output from the NG tube is minimal in the order of 10 cc over the past 8 hours, output from the ABDIAZIZ is minimal in the order of 10 cc an hour. The patient is in atrial fibrillation. The patient is having occasional PVCs. Remains on Cardizem drip at 2.5 mg an hour and the patient is also on IV heparin. Norepinephrine is running at 0.09 mcg/kg/min. The white cell count is improved and is currently down to 20 with a hemoglobin of 8 and a platelet count of 345. BUN is 49 with a creatinine of 1.87. Sodium levels at 142, potassium level is at 3.7, chloride is 110. Remains on a combination of Zosyn and Diflucan. On 08/17/2024, patient is being seen for a follow-up. This morning, the patient remains on propofol which is running at 40 mcg/kg/min. The patient was given sedation holiday yesterday. This was reported as the patient started having significant activities. The cardiac rhythm remains atrial fibrillation with controlled rate. This morning, the patient is calm and comfortable on propofol. He is on assist-control mode of mechanical ventilation at rate of 14, tidal volume of 500, FiO2 of 30% with a PEEP of 5. IV fluids are currently at KVO and the patient remains on TPN at a rate of 50 cc an hour. The patient is on low-dose norepinephrine running at 0.01 mcg/kg/min. The blood gas showed a pH of 7.46 with a pCO2 35 and pO2 of 70. Chest x-ray shows atelectatic changes and bilateral pleural effusions. NG tube output is in order of 100 cc over the past 8 hours. ABDIAZIZ output is in the order of 60 cc over the past 12 hours. The patient remains on IV heparin. The patient is off the Cardizem drip for now. The rest of the blood work shows a white cell count of 18, hemoglobin of 7.5 and a platelet count of 305. The sodium levels at 142, potassium level 3.8, chloride 112 and the bicarbonate is a 24. BUN 39 and a creatinine of 1.6. Blood sugars are elevated and the Lantus insulin dose will be further adjusted. No fever. No other significant events. Abdominal wound is dry clean and intact. 08/18/2024, the patient is being seen for a follow-up. She had another sedation holiday because of tachypnea and restlessness and asynchrony with a mechanical ventilator. This morning, he is on propofol. Will do a gradual propofol wean and use Precedex if needed. He is currently on propofol running at 20 mcg/kg/min. Remains on assist-control mode at rate of 14, tidal volume of 500, FiO2 of 30% with a PEEP of 5. Blood gas showed a pH of 7.43 with a pCO2 of 39 and pO2 of 88. Chest x-ray is unchanged and there is atelectatic change in the fusion lung base bilaterally. Remains on TPN for nutritional support with rate of 50 cc an hour. IV fluids are KVO. NG output is in the order of 200 cc over the past 24 hours. ABDIAZIZ output is in the order of 45 cc. Remains on norepinephrine at a dose of 0.01 mcg/kg/min. The fluid balance is -1.2 L over the past 24 hours and the patient remains on IV Lasix 40 mg every 12 hours. The patient is also on Zosyn and Diflucan. Afebrile. Hemodynamically stable with low-dose pressors. The white cell count is 18, hemoglobin 7.4 and a platelet count of 335. The BUN is 38 with a creatinine of 1.4. Sodium is at 142, bicarb is at 24. Blood sugars at 230 and Lantus dose has been modified. No other significant events overnight. On 08/19/2024, the patient is being seen for a follow-up. Remains intubated on mechanical ventilatory patient has been off propofol for the past 24 hours. He is opening his eyes and moving. Nevertheless, is not following commands yet. He continues to be quite sedated. As such, no weaning trials have been done awaiting further improvement in his mentation. Cardiac rhythm is atrial fibrillation and the patient remains on IV heparin. Rate is controlled. Remains on low-dose norepinephrine which is running at 0.05 mcg/kg/min. He is on TPN at rate of 80 cc an hour. He is on the IV Lasix 40 mg every 12 hours and the fluid balance -238 cc over the past 24 hours. He is on the mechanical ventilator assist-control mode at rate of 14, tidal volume of 500, FiO2 of 30% with a PEEP of 5. Blood gas showed a pH of 7.43 with a pCO2 of 39 and pO2 of 95. NG tube output has been 50 cc over the past 12 hours. ABDIAZIZ output is minimal. Blood work from today shows a white cell count of 17, hemoglobin 7.3 and a platelet count of 319. Sodium is at 143, BUN 37 and the creatinine is at 1.45. Remains on Zosyn and Diflucan. Blood sugar control with Lantus. On 08/20/2024, the patient is off sedation the patient has been off propofol for the past 48 hours. He is still not fully awake. He moves around. Withdraws to painful stimulation. At times, he gets slightly restless. Nevertheless, he is not awake and he is not following any commands and his level of alertness remains quite diminished. For that reason, I recommended a CAT scan of the head to investigate ongoing altered mentation. The patient remains on the mechanical ventilator assist-control mode rate of 14, tidal volume of 500, FiO2 30% with a PEEP of 5. Blood gas showed a pH of 7.44 with pCO2 41 and pO2 of 97. Fluid balance is negative to 11 cc over the past 24 hours. Hemoglobin stable at 7.1 and the creatinine is down to 1.3. The patient remains on low-dose norepinephrine running at 0.02 mcg/kg/min. NG tube output is in the order of 150 cc over the past 24 hours and the patient was started on TPN for additional support. IV fluids are currently at KVO. The patient continues to be in atrial fibrillation with a controlled rate. The patient is having frequent ectopies. The patient remains on IV heparin. Antibiotic coverage include Zosyn and anticoagulation with Diflucan. He is being diuresed with IV Lasix 40 mg p.o. 12 hours and a dose will be modified. The patient is on Lantus insulin 20 units twice a day and sliding scale coverage. No other significant events overnight. Patient was evaluated today on 08/21/2024, remains in the ICU intubated and mechanically ventilated, on assist-control rate of 14 tidal volume 500 FiO2 30% and PEEP of 5. Patient is now postoperative day #8, his ABG showed a pO2 of 136 pCO2 4 0 pH of 7.47 hence I did not make any ventilator changes. Patient remains on TPN, he is off propofol today, and I would like to give him a trial of weaning if we need to place on Precedex, will keep placed on Precedex, and give the patient a trial of weaning possibly today. We tried this today, and the patient became extremely agitated restless, he had to be placed back on mechanical ventilation/assist-control rate, he was tried on a pressure support of 10 and CPAP, tolerated for less than half an hour. But then as he got agitated patient required Dilaudid, and now I am recommending Precedex trial on this patient. His hemoglobin today is 6.9, hence he will receive 1 unit of packed RBCs. Remains on Zosyn and Diflucan, remains on Lasix 40 mg IV push every 8 hours. His ABDIAZIZ drain is showing minimal drainage, CT of the abdomen is negative. Patient is now postoperative day #8, had a perforated gastric ulcer. The goal today is to hopefully address weaning, his chest x-ray shows a good sized right-sided pleural effusion, may eventually require thoracentesis. Continues to have leukocytosis with WC BC count of 13.7 hemoglobin 6.9 basic metabolic profile is normal bicarb is 32 BUN is 44 creatinine 1.28, steadily improving compared to creatinine of 2.55 on admission. Objective - Vital Signs Vital signs: Vital Signs Temp 98.6 F 08/21/24 11:45 Pulse 98 08/21/24 11:45 Resp 14 08/21/24 11:45 BP 118/85 08/21/24 11:45 Pulse Ox 98 08/21/24 11:45 FiO2 30 08/21/24 10:03 Intake & Output 08/20/24 08/21/24 08/21/24 18:59 06:59 18:59 Intake Total 8066.601 1492.171 489.592 Output Total 1875 1620 100 Balance -168.849 -129.829 389.592 Weight 111.5 kg Intake: IV 1415 1240 195 .9NS KVO 155 180 15 Fluconazole in NaCl,Iso- 100 Osm 200 mg In Saline 1 100ml.bag @ 100 mls/hr IVPB DAILY [facility] Rx#: [id number] Magnesium Sulfate-D5w Pmx 100 1 gm In Dextrose/Water 1 100ml.bag @ 100 mls/hr IVPB ONCE ONE Rx#: [id number] Mvi, Adult No.4 with Vit 960 960 80 K 10 ml Trace (Conc-1Ml/ Dose) 1 ml Sodium Acetate 16 meq Potassium Acetate 14 meq Potassium Phosphate 21 mmol Magnesium Sulfate gm 0.75 gm Calcium Gluconate 1 gm In Amino Acids 5 %/ Dextrose 20 % 1,000 ml @ 75 mls/hr IV .[id number] [facility] Rx#:[id number] Potassium Chloride 10 meq 100 In Water For Injection 1 100ml.bag @ 100 mls/hr IVPB Q1H [facility] Rx#: [id number] Potassium Chloride 20 meq 100 100 In Water For Injection 1 100ml.bag @ 50 mls/hr IVPB Q2H [facility] Rx#: [id number] Intake, IV Titration 291.151 250.171 6.592 Amount Heparin Sod,Pork in 0.45% 250 250 NaCl 25,000 unit In 0.45 % NaCl 1 250ml.bag @ 6. 826 UNITS/KG/HR 10 mls/hr IV .Q24H [facility] Rx#: [id number] Norepinephrine 32 mg In 41.151 0.171 6.592 Sodium Chloride 0.9% 218 ml @ 0.03 MCG/KG/MIN 2.06 mls/hr IV .Q24H [facility] Rx#: [id number] Blood Product 288 Rc Pheresis 2 As3 Unit 288 [id number] Output: Drainage 20 Right abdominal ABDIAZIZ drain 20 Urine 1875 1600 100 Other: Voiding Method Indwelling Catheter Indwelling Catheter ABP, PAP, CO, CI - Last Documented Arterial Blood Pressure 126/54 - Exam GENERAL EXAM: Revealed 79-year-old white male intubated mechanically ventilated, follows simple instructions remains on propofol which I plan to hold and use Precedex instead. HEAD: Normocephalic. EYES: Sluggish reaction of pupils, equal size. NOSE: Clear with pink turbinates. THROAT: No erythema or exudates. Orogastric tube and endotracheal tube are intact. NECK: No masses, no JVD. Right IJ triple-lumen catheter in place. CHEST: No chest wall deformity. LUNGS: Diminished breath sounds at the right base no crackles rhonchi or wheezes CVS: S1 and S irregular consistent with atrial fibrillation with no audible murmur, irregular rhythm. The rate is controlled. Yeah ABDOMEN: Abdominal dressing dry and intact. ABDIAZIZ drain in place. No hepa tosplenomegaly. NERVOUS SYSTEM: Sedated, tone is normal in all 4 extremities. EXTREMITIES: Left radial arterial line in place. 1+ bipedal edema - Labs CBC & Chem 7: 08/21/24 04:09 08/21/24 04:09 Labs: Abnormal Lab Results - Last 24 Hours (Table) 08/20/24 08/21/24 08/21/24 Range/Units 18:07 01:16 03:31 WBC (3.8-10.6) k/uL RBC (4.30-5.90) m/uL Hgb (13.0-17.5) gm/dL Hct (39.0-53.0) % MCH (25.0-35.0) pg MCHC (31.0-37.0) g/dL RDW (11.5-15.5) % Neutrophils # (Manual) (1.3-7.7) k/uL Lymphocytes # (Manual) (1.0-4.8) k/uL APTT (22.0-30.0) sec ABG pH 7.47 H (7.35-7.45) ABG pO2 136 H (83-108) mmHg ABG HCO3 29 H (21-25) mmol/L ABG Total CO2 30 H (19-24) mmol/L ABG O2 Saturation 99.8 H (94-97) % Hemoglobin 6.7 L* (13.0-17.5) gm/dL Carbon Dioxide (22-30) mmol/L BUN (9-20) mg/dL Creatinine (0.66-1.25) mg/dL Glucose (74-99) mg/dL POC Glucose (mg/dL) 300 H 258 H (70-110) mg/dL Calcium (8.4-10.2) mg/dL Total Protein (6.3-8.2) g/dL Albumin (3.5-5.0) g/dL Crossmatch 08/21/24 08/21/24 08/21/24 Range/Units 04:09 04:09 04:09 WBC 13.7 H (3.8-10.6) k/uL RBC 2.88 L (4.30-5.90) m/uL Hgb 6.9 L* (13.0-17.5) gm/dL Hct 24.1 L (39.0-53.0) % MCH 24.0 L (25.0-35.0) pg MCHC 28.6 L (31.0-37.0) g/dL RDW 20.3 H (11.5-15.5) % Neutrophils # (Manual) 12.30 H (1.3-7.7) k/uL Lymphocytes # (Manual) 0.82 L (1.0-4.8) k/uL APTT 43.0 H (22.0-30.0) sec ABG pH (7.35-7.45) ABG pO2 (83-108) mmHg ABG HCO3 (21-25) mmol/L ABG Total CO2 (19-24) mmol/L ABG O2 Saturation (94-97) % Hemoglobin (13.0-17.5) gm/dL Carbon Dioxide 32 H (22-30) mmol/L BUN 44 H (9-20) mg/dL Creatinine 1.28 H (0.66-1.25) mg/dL Glucose 178 H (74-99) mg/dL POC Glucose (mg/dL) (70-110) mg/dL Calcium 8.0 L (8.4-10.2) mg/dL Total Protein 4.8 L (6.3-8.2) g/dL Albumin 2.0 L (3.5-5.0) g/dL Crossmatch 08/21/24 08/21/24 08/21/24 Range/Units 05:29 06:19 12:18 WBC (3.8-10.6) k/uL RBC (4.30-5.90) m/uL Hgb (13.0-17.5) gm/dL Hct (39.0-53.0) % MCH (25.0-35.0) pg MCHC (31.0-37.0) g/dL RDW (11.5-15.5) % Neutrophils # (Manual) (1.3-7.7) k/uL Lymphocytes # (Manual) (1.0-4.8) k/uL APTT (22.0-30.0) sec ABG pH (7.35-7.45) ABG pO2 (83-108) mmHg ABG HCO3 (21-25) mmol/L ABG Total CO2 (19-24) mmol/L ABG O2 Saturation (94-97) % Hemoglobin (13.0-17.5) gm/dL Carbon Dioxide (22-30) mmol/L BUN (9-20) mg/dL Creatinine (0.66-1.25) mg/dL Glucose (74-99) mg/dL POC Glucose (mg/dL) 245 H 254 H (70-110) mg/dL Calcium (8.4-10.2) mg/dL Total Protein (6.3-8.2) g/dL Albumin (3.5-5.0) g/dL Crossmatch See Detail Assessment and Plan Assessment: Impression: Acute hypoxic respiratory failure secondary to acute surgical abdomen and abdominal sepsis with septic shock Acute pneumoperitoneum secondary to perforated gastric ulcer, status post exploratory laparotomy abdominal washout and modified Kiet patch postoperative day #9 Acute abdominal sepsis and septic shock remains on antibiotics, remains on norepinephrine at 0.03 mcg/kg/min., Remains on antibiotics including Zosyn and Diflucan Hypotension, secondary to abdominal sepsis and septic shock still requiring norepinephrine Right-sided pleural effusion and bipedal edema patient is demonstrating third spacing most likely secondary to hypoalbuminemia Severe LV dysfunction with ejection fraction of 35% Acute blood loss anemia patient received so far 2 units of packed RBCs since admission Leukocytosis secondary to abdominal sepsis Acute kidney injury secondary to sepsis and septic shock Chronic atrial fibrillation, rate controlled History of hypertension History of prostate cancer Recommendation: Continue to monitor in the ICU Continue ventilatory support however the patient will be given trials of weaning if possible assuming the patient could do well with pressure support and CPAP without requiring propofol may consider using Precedex Continue antibiotics and antifungal for his abdominal sepsis Continue GI and DVT prophylaxis, Continue to monitor renal status and address accordingly and monitor electrolytes Continue Lasix as the patient seems to be quite edematous he is on Lasix 40 mg IV push every 8 hours Continue TPN at 80 cc/h Continue to closely monitor I's and O's. Continue insulin and sliding scale coverage Continue hemodynamic support/norepinephrine and titrate accordingly Continue to monitor all cultures Continue to monitor hemoglobin Daily x-rays and daily labs Consider ultrasound of the right chest and possible right-sided thoracentesis Patient remains critically ill. Critical care time is 32 minutes Time with Patient: Greater than 30
--- NOTE | 2024-08-21 12:44 | P.PN ---
Subjective Progress Note Date: 08/21/24 SURGICAL PROGRESS NOTE CHIEF COMPLAINT: Perforated gastric ulcer HISTORY OF PRESENT ILLNESS: Patient is postop day #8 status post exploratory laparotomy and modified Kiet patch for perforated gastric ulcer. Patient remains in the ICU intubated. Patient may be extubated today. He is on Levophed. He is on IV heparin for his A-fib. He did have about 50 mL bright red blood from the NG tube yesterday. This has now resolved. Hemoglobin low at 6.9 and is getting a unit of blood today. WBC down from 14 to 13.7. ABDIAZIZ drain 20 mL serosanguineous output. Patient has been requiring IV Dilaudid. Patient did go into SVT and cardiology has added metoprolol. Patient also given pain medication. PHYSICAL EXAM: VITAL SIGNS: Reviewed. GENERAL: no acute distress. ABDOMEN: Soft. Nondistended. Incisional dressing clean dry and intact. ABDIAZIZ drain serosanguineous output NEUROLOGIC: Intubated ASSESSMENT: 1. Perforated gastric ulcer status post exploratory laparotomy and modified Kiet patch 2. Hypokalemia improved 3. A-fib on IV heparin PLAN: -Recommend upper GI after patient is extubated -Continue TPN for nutrition support -Continue ICU management -Continue supportive care -Continue NG tube to low intermittent suction -Keep n.p.o. -Continue antibiotics -Continue to monitor ABDIAZIZ drain -Continue IV Protonix -Continue to monitor hemoglobin -IV Tylenol added for pain management Physician Optometry Assistant note has been reviewed by physician. Signing provider agrees with the documented findings, assessment, and plan of care. Attestation Patient seen and examined at bedside. Still intubated and working on extubation. Per nursing, weaning from Levophed. Started on Precedex. White count at 13.7. ABDIAZIZ drain with minimal output. Once extubated, plan for upper GI study for evaluation of any leak. Continue ICU management at this time. Alise Gallardo, Objective - Vital Signs Vital signs: Vital Signs Temp 98.6 F 08/21/24 11:45 Pulse 86 08/21/24 12:40 Resp 14 08/21/24 11:45 BP 118/85 08/21/24 11:45 Pulse Ox 98 08/21/24 11:45 FiO2 30 08/21/24 10:03 Intake & Output 08/20/24 08/21/24 08/21/24 18:59 06:59 18:59 Intake Total 7326.615 1094.171 489.592 Output Total 1875 1620 100 Balance -168.849 -129.829 389.592 Weight 111.5 kg Intake: IV 1415 1240 195 .9NS KVO 155 180 15 Fluconazole in NaCl,Iso- 100 Osm 200 mg In Saline 1 100ml.bag @ 100 mls/hr IVPB DAILY [facility] Rx#: [id number] Magnesium Sulfate-D5w Pmx 100 1 gm In Dextrose/Water 1 100ml.bag @ 100 mls/hr IVPB ONCE ONE Rx#: [id number] Mvi, Adult No.4 with Vit 960 960 80 K 10 ml Trace (Conc-1Ml/ Dose) 1 ml Sodium Acetate 16 meq Potassium Acetate 14 meq Potassium Phosphate 21 mmol Magnesium Sulfate gm 0.75 gm Calcium Gluconate 1 gm In Amino Acids 5 %/ Dextrose 20 % 1,000 ml @ 75 mls/hr IV .[id number] [facility] Rx#:[id number] Potassium Chloride 10 meq 100 In Water For Injection 1 100ml.bag @ 100 mls/hr IVPB Q1H [facility] Rx#: [id number] Potassium Chloride 20 meq 100 100 In Water For Injection 1 100ml.bag @ 50 mls/hr IVPB Q2H [facility] Rx#: [id number] Intake, IV Titration 291.151 250.171 6.592 Amount Heparin Sod,Pork in 0.45% 250 250 NaCl 25,000 unit In 0.45 % NaCl 1 250ml.bag @ 6. 826 UNITS/KG/HR 10 mls/hr IV .Q24H [facility] Rx#: [id number] Norepinephrine 32 mg In 41.151 0.171 6.592 Sodium Chloride 0.9% 218 ml @ 0.03 MCG/KG/MIN 2.06 mls/hr IV .Q24H [facility] Rx#: [id number] Blood Product 288 Rc Pheresis 2 As3 Unit 288 [id number] Output: Drainage 20 Right abdominal ABDIAZIZ drain 20 Urine 1875 1600 100 Other: Voiding Method Indwelling Catheter Indwelling Catheter ABP, PAP, CO, CI - Last Documented Arterial Blood Pressure 126/54 - Labs CBC & Chem 7: 08/22/24 05:19 08/22/24 05:19 Labs: Abnormal Lab Results - Last 24 Hours (Table) 08/20/24 08/21/24 08/21/24 Range/Units 18:07 01:16 03:31 WBC (3.8-10.6) k/uL RBC (4.30-5.90) m/uL Hgb (13.0-17.5) gm/dL Hct (39.0-53.0) % MCH (25.0-35.0) pg MCHC (31.0-37.0) g/dL RDW (11.5-15.5) % Neutrophils # (Manual) (1.3-7.7) k/uL Lymphocytes # (Manual) (1.0-4.8) k/uL APTT (22.0-30.0) sec ABG pH 7.47 H (7.35-7.45) ABG pO2 136 H (83-108) mmHg ABG HCO3 29 H (21-25) mmol/L ABG Total CO2 30 H (19-24) mmol/L ABG O2 Saturation 99.8 H (94-97) % Hemoglobin 6.7 L* (13.0-17.5) gm/dL Carbon Dioxide (22-30) mmol/L BUN (9-20) mg/dL Creatinine (0.66-1.25) mg/dL Glucose (74-99) mg/dL POC Glucose (mg/dL) 300 H 258 H (70-110) mg/dL Calcium (8.4-10.2) mg/dL Total Protein (6.3-8.2) g/dL Albumin (3.5-5.0) g/dL Crossmatch 08/21/24 08/21/24 08/21/24 Range/Units 04:09 04:09 04:09 WBC 13.7 H (3.8-10.6) k/uL RBC 2.88 L (4.30-5.90) m/uL Hgb 6.9 L* (13.0-17.5) gm/dL Hct 24.1 L (39.0-53.0) % MCH 24.0 L (25.0-35.0) pg MCHC 28.6 L (31.0-37.0) g/dL RDW 20.3 H (11.5-15.5) % Neutrophils # (Manual) 12.30 H (1.3-7.7) k/uL Lymphocytes # (Manual) 0.82 L (1.0-4.8) k/uL APTT 43.0 H (22.0-30.0) sec ABG pH (7.35-7.45) ABG pO2 (83-108) mmHg ABG HCO3 (21-25) mmol/L ABG Total CO2 (19-24) mmol/L ABG O2 Saturation (94-97) % Hemoglobin (13.0-17.5) gm/dL Carbon Dioxide 32 H (22-30) mmol/L BUN 44 H (9-20) mg/dL Creatinine 1.28 H (0.66-1.25) mg/dL Glucose 178 H (74-99) mg/dL POC Glucose (mg/dL) (70-110) mg/dL Calcium 8.0 L (8.4-10.2) mg/dL Total Protein 4.8 L (6.3-8.2) g/dL Albumin 2.0 L (3.5-5.0) g/dL Crossmatch 08/21/24 08/21/24 08/21/24 Range/Units 05:29 06:19 12:18 WBC (3.8-10.6) k/uL RBC (4.30-5.90) m/uL Hgb (13.0-17.5) gm/dL Hct (39.0-53.0) % MCH (25.0-35.0) pg MCHC (31.0-37.0) g/dL RDW (11.5-15.5) % Neutrophils # (Manual) (1.3-7.7) k/uL Lymphocytes # (Manual) (1.0-4.8) k/uL APTT (22.0-30.0) sec ABG pH (7.35-7.45) ABG pO2 (83-108) mmHg ABG HCO3 (21-25) mmol/L ABG Total CO2 (19-24) mmol/L ABG O2 Saturation (94-97) % Hemoglobin (13.0-17.5) gm/dL Carbon Dioxide (22-30) mmol/L BUN (9-20) mg/dL Creatinine (0.66-1.25) mg/dL Glucose (74-99) mg/dL POC Glucose (mg/dL) 245 H 254 H (70-110) mg/dL Calcium (8.4-10.2) mg/dL Total Protein (6.3-8.2) g/dL Albumin (3.5-5.0) g/dL Crossmatch See Detail
--- NOTE | 2024-08-21 13:43 | P.PN ---
Subjective Patient is seen for follow-up for acute kidney injury. Maintained on IV Lasix Serum creatinine at 1.2 mg/dL up from 1.3 yesterday. Maintained on the vent FiO2 at 30%. Good urine output noted. Objective - Vital Signs Vital signs: Vital Signs Temp 98.6 F 08/21/24 11:45 Pulse 89 08/21/24 12:53 Resp 14 08/21/24 11:45 BP 118/85 08/21/24 11:45 Pulse Ox 98 08/21/24 11:45 FiO2 30 08/21/24 12:40 Intake & Output 08/20/24 08/21/24 08/21/24 18:59 06:59 18:59 Intake Total 8073.893 6941.171 489.592 Output Total 1875 1620 100 Balance -168.849 -129.829 389.592 Weight 111.5 kg Intake: IV 1415 1240 195 .9NS KVO 155 180 15 Fluconazole in NaCl,Iso- 100 Osm 200 mg In Saline 1 100ml.bag @ 100 mls/hr IVPB DAILY [facility] Rx#: [id number] Magnesium Sulfate-D5w Pmx 100 1 gm In Dextrose/Water 1 100ml.bag @ 100 mls/hr IVPB ONCE ONE Rx#: [id number] Mvi, Adult No.4 with Vit 960 960 80 K 10 ml Trace (Conc-1Ml/ Dose) 1 ml Sodium Acetate 16 meq Potassium Acetate 14 meq Potassium Phosphate 21 mmol Magnesium Sulfate gm 0.75 gm Calcium Gluconate 1 gm In Amino Acids 5 %/ Dextrose 20 % 1,000 ml @ 75 mls/hr IV .[id number] [facility] Rx#:[id number] Potassium Chloride 10 meq 100 In Water For Injection 1 100ml.bag @ 100 mls/hr IVPB Q1H [facility] Rx#: [id number] Potassium Chloride 20 meq 100 100 In Water For Injection 1 100ml.bag @ 50 mls/hr IVPB Q2H [facility] Rx#: [id number] Intake, IV Titration 291.151 250.171 6.592 Amount Heparin Sod,Pork in 0.45% 250 250 NaCl 25,000 unit In 0.45 % NaCl 1 250ml.bag @ 6. 826 UNITS/KG/HR 10 mls/hr IV .Q24H [facility] Rx#: [id number] Norepinephrine 32 mg In 41.151 0.171 6.592 Sodium Chloride 0.9% 218 ml @ 0.03 MCG/KG/MIN 2.06 mls/hr IV .Q24H [facility] Rx#: [id number] Blood Product 288 Rc Pheresis 2 As3 Unit 288 [id number] Output: Drainage 20 Right abdominal ABDIAZIZ drain 20 Urine 1875 1600 100 Other: Voiding Method Indwelling Catheter Indwelling Catheter ABP, PAP, CO, CI - Last Documented Arterial Blood Pressure 126/54 - Exam Patient is sedated and on the vent. Examination of the heart S1 and S2 Examination of the lungs bilateral breath sounds are heard Abdomen is dressed Examination lower extremity shows edema 1+ bilateral - Labs CBC & Chem 7: 08/21/24 04:09 08/21/24 04:09 Labs: Abnormal Lab Results - Last 24 Hours (Table) 08/20/24 08/21/24 08/21/24 Range/Units 18:07 01:16 03:31 WBC (3.8-10.6) k/uL RBC (4.30-5.90) m/uL Hgb (13.0-17.5) gm/dL Hct (39.0-53.0) % MCH (25.0-35.0) pg MCHC (31.0-37.0) g/dL RDW (11.5-15.5) % Neutrophils # (Manual) (1.3-7.7) k/uL Lymphocytes # (Manual) (1.0-4.8) k/uL APTT (22.0-30.0) sec ABG pH 7.47 H (7.35-7.45) ABG pO2 136 H (83-108) mmHg ABG HCO3 29 H (21-25) mmol/L ABG Total CO2 30 H (19-24) mmol/L ABG O2 Saturation 99.8 H (94-97) % Hemoglobin 6.7 L* (13.0-17.5) gm/dL Carbon Dioxide (22-30) mmol/L BUN (9-20) mg/dL Creatinine (0.66-1.25) mg/dL Glucose (74-99) mg/dL POC Glucose (mg/dL) 300 H 258 H (70-110) mg/dL Calcium (8.4-10.2) mg/dL Total Protein (6.3-8.2) g/dL Albumin (3.5-5.0) g/dL Crossmatch 08/21/24 08/21/24 08/21/24 Range/Units 04:09 04:09 04:09 WBC 13.7 H (3.8-10.6) k/uL RBC 2.88 L (4.30-5.90) m/uL Hgb 6.9 L* (13.0-17.5) gm/dL Hct 24.1 L (39.0-53.0) % MCH 24.0 L (25.0-35.0) pg MCHC 28.6 L (31.0-37.0) g/dL RDW 20.3 H (11.5-15.5) % Neutrophils # (Manual) 12.30 H (1.3-7.7) k/uL Lymphocytes # (Manual) 0.82 L (1.0-4.8) k/uL APTT 43.0 H (22.0-30.0) sec ABG pH (7.35-7.45) ABG pO2 (83-108) mmHg ABG HCO3 (21-25) mmol/L ABG Total CO2 (19-24) mmol/L ABG O2 Saturation (94-97) % Hemoglobin (13.0-17.5) gm/dL Carbon Dioxide 32 H (22-30) mmol/L BUN 44 H (9-20) mg/dL Creatinine 1.28 H (0.66-1.25) mg/dL Glucose 178 H (74-99) mg/dL POC Glucose (mg/dL) (70-110) mg/dL Calcium 8.0 L (8.4-10.2) mg/dL Total Protein 4.8 L (6.3-8.2) g/dL Albumin 2.0 L (3.5-5.0) g/dL Crossmatch 08/21/24 08/21/24 08/21/24 Range/Units 05:29 06:19 12:18 WBC (3.8-10.6) k/uL RBC (4.30-5.90) m/uL Hgb (13.0-17.5) gm/dL Hct (39.0-53.0) % MCH (25.0-35.0) pg MCHC (31.0-37.0) g/dL RDW (11.5-15.5) % Neutrophils # (Manual) (1.3-7.7) k/uL Lymphocytes # (Manual) (1.0-4.8) k/uL APTT (22.0-30.0) sec ABG pH (7.35-7.45) ABG pO2 (83-108) mmHg ABG HCO3 (21-25) mmol/L ABG Total CO2 (19-24) mmol/L ABG O2 Saturation (94-97) % Hemoglobin (13.0-17.5) gm/dL Carbon Dioxide (22-30) mmol/L BUN (9-20) mg/dL Creatinine (0.66-1.25) mg/dL Glucose (74-99) mg/dL POC Glucose (mg/dL) 245 H 254 H (70-110) mg/dL Calcium (8.4-10.2) mg/dL Total Protein (6.3-8.2) g/dL Albumin (3.5-5.0) g/dL Crossmatch See Detail Assessment and Plan Assessment: 1. Acute kidney injury secondary to ATN. Creatinine 1.5 in January 2024 and 2.5 this admission. Renal function improving. Creatinine 1.2. Nonoliguric. No hydronephrosis noted on CT. 2. Perforated gastric ulcer with pneumoperitoneum status post ex lap with closure of ulcer August 13, 2024. 3. Septic shock on vasopressor support. 4. Metabolic acidosis secondary to acute kidney injury and lactic acidosis. Improved. 5. Diabetes mellitus. 6. A-fib with RVR. On oral meds. Cardiology following. 7. Volume overload. Improving with diuresis. Plan: Continue with IV Lasix Maintained on TPN Monitor electrolytes
[2024-08-21] MEDS: DEXMEDETOMIDINE/0.9% NACL(PMX) 400 MCG in EMPTY BAG 1 BAG IV SCH (14:20)
[2024-08-21 14:43] LABS: Anisocytosis Slight; HCT 28.4 % (39.0-53.0); HGB 8.2 gm/dL (13.0-17.5); Hypochromasia Marked; MCH 24.2 pg (25.0-35.0); MCV 83.7 fL (80.0-100.0); Mean Platelet Volume 8.9; Microcytosis Slight; Platelet Count 331 k/uL (150-450); Poikilocytosis Moderate
[2024-08-21 15:05] LABS: Amylase 42 U/L (30-110); Lipase 168 U/L (23-300)
[2024-08-21] MEDS: PIPERACILLIN-TAZOBACTAM 3.375 GM in SODIUM CHLORIDE 0.9% 100 ML IVPB SCH (15:36)
[2024-08-21 15:39] LABS: Eosinophils # (M) 0.47 k/uL (0-0.7); Lymphocytes # (M) 1.55 k/uL (1.0-4.8); Monocytes # (M) 0.31 k/uL (0-1.0); Neutrophils # (M) 13.33 k/uL (1.3-7.7); Neutrophils % (M) 86 %; Nucleated Red Blood Cells 0 /100 WBC (0-0); Total Cells Counted 200
[2024-08-21 15:40] LABS: Stomatocytes Present
[2024-08-21 15:59] LABS: WBC 15.5 k/uL (3.8-10.6)
[2024-08-21] MEDS: METOPROLOL TARTRATE 5 MG/5 ML VIAL IVP SCH (17:11)
[2024-08-21] MEDS: ACETAMINOPHEN IV (For NPO) 1,000 MG in EMPTY BAG 1 BAG IVPB SCH (17:12)
[2024-08-21 17:54] LABS: Glucose,Whole Blood 177 mg/dL (70-110)
[2024-08-21 20:25] LABS: Anisocytosis Slight; HCT 30.5 % (39.0-53.0); Hypochromasia Marked; MCH 24.9 pg (25.0-35.0); MCHC 29.6 g/dL (31.0-37.0); MCV 84.3 fL (80.0-100.0); Mean Platelet Volume 8.8; Microcytosis Slight; Platelet Count 337 k/uL (150-450); Poikilocytosis Moderate; RBC 3.61 m/uL (4.30-5.90); RDW 19.3 % (11.5-15.5); WBC 17.1 k/uL (3.8-10.6)
[2024-08-22 00:51] LABS: Glucose,Whole Blood 278 mg/dL (70-110)
[2024-08-22 04:30] LABS: ABG Base Excess 3.8 mmol/L; ABG HCO3 28 mmol/L (21-25); ABG PCO2 37 mmHg (35-45); ABG PH 7.48 (7.35-7.45); ABG PO2 79 mmHg (83-108); ABG TCO2 29 mmol/L (19-24); Allen Test Performed? Yes
--- NOTE | 2024-08-22 05:38 | P.PN ---
Subjective Progress Note Date: 08/21/24 This is a 79-year-old male who was monitored in the intensive care unit. He is postoperative day #2 repair of perforated gastric ulcer with Kiet patch. He remains sedated and intubated on the mechanical ventilator. Patient has been febrile with a Tmax of 101.7 axillary in the last 24 hours. He was noted to be in atrial fibrillation with RVR and has been started on IV Cardizem. Eliquis remains on hold postsurgically. Patient continues on multiple antibiotic therapy including IV fluconazole IV Zosyn with infectious disease following closely. He is currently sedated with propofol he is requiring Levophed and vasopressin support. Blood culture remains negative so far. Labs reveal a white blood cell complement 3.7, hemoglobin 9.5, sodium 139, potassium 4.1, BUN of 31 creatinine 3.52 calcium of 6.8 chest x-ray today reveals continued CHF exacerbation and fluid overload state with no significant for 1 day earlier. Patient does have hypotensive bowel sounds. 08/15/2024 Patient is evaluated in the ICU he remains on the mechanical ventilator with PEEP of 5 and FiO2 of 30%. He is postoperative day #3 repair of perforated gastric ulcer with kiet patch. Currently sedated with propofol. Chest xray findings suggest continued CHF exacerbation fluid over load state. worsening left basilar opacity could reflect acute infiltrate and or atelectasis. Correlate clinically. White blood cell count 27.7, hgb 8.5, sodium 141, potassium 3.9, BUN 58, creatinine 2.10. Magnesium 1.8. 08/16/2024 Patient is evaluated today in the intensive care unit he is postoperative day #4 to get with Kiet patch. Patient remains sedated with propofol. He is currently intubated and on mechanical ventilator with a PEEP of 5 and FiO2 of 30%. Chest x-ray today reveals worsening CHF. His white blood cell count today is 20.9, hemoglobin 8, BUN of 49 creatinine of 1.87. Patient remains on room. He was having runs of V. tach and was taken off IV Cardizem started on an oral metoprolol on an outpatient basis. his heart rate is controlled. He continues on IV Zosyn. He remains on IV fluconazole. Blood sugars are elevated after the start of TPN. He was started on a small dose of Lantus and we will continue to monitor and make adjustments as needed. 08/17/2024 Patient is evaluated today in the ICU. He remains sedated and intubated on the mechanical ventilator. PEEP of 5 and FiO2 of 40%. Patient currently undergoing sedation holiday and has not been responsive. Patient received IV lasix x 1 and has since been started on IV lasix 40 mg [id number]. Patient remains on IV heparin. Continues on IV metoprolol and no further reports of ectopi noted. White blood cell count 18.0, hgb 7.5, BUN 39, creatinine 1.64. Blood glucose remains elevated in the 200s. Chest xray today reveals continued CHF. 08/18/2024 Patient is evaluated in follow-up in the intensive care unit. He remains sedated and intubated on mechanical ventilator. Patient is a PEEP of 5 and FiO2 of 40%. Labs today reveals white blood cell count 18.4, hgb 7.4, BUN 38, creatinine 1.45. Blood glucose in the 200s. Patient remains on IV fluconazole and IV zosyn. Remains on IV heparin. Patient on small dose of levo. Continues on TPN. Patient had low grade fever 100.1 overnight. 08/19/2024 Patient is eval seen in follow-up in the intensive care unit. He remains sedated and intubated on mechanical ventilator. He is any sedation held today and is more awake alert with spontaneous eye opening and tracking. His daughter is at the bedside. Ventilator settings were adjusted and he continues on a PEEP of 5 with an FiO2 of 30%. He remains on IV fluconazole and IV Zosyn. Chest x- ray today reveals stable findings suggestive of CHF overload state. He continues on IV Lasix which was increased to 40 mg every 8 hours. He continues on IV heparin. He is on a small dose of Levophed. 08/20/2024 Patient is evaluated in follow-up in the intensive care unit. Patient remains a sedated intubated on the mechanical ventilator his FiO2 remains at 30%. He is more awake alert and oriented. Family at the bedside. Patient continues on a course of IV fluconazole and IV Zosyn. ID following closely. He remains on IV heparin. Patient continues with TPN. He remains on IV Lasix 40 mg every 8 hours. Chest x-ray today reveals CHF. Labs today white blood cell count 14.8, hemoglobin 7.1, BUN of 42 creatinine of 1.31 sodium of 143. 08/21/2024 Patient is seen in follow-up remains in the ICU on mechanical ventilation. Per nursing staff attempting to wean and extubate although unsuccessful and patient is currently maintained on mechanical ventilation FiO2 is 50% with a PEEP of 5. Patient is to continue on IV Lasix and would recommend continuing as there is significant overload noted. Patient only on fluconazole and will repeat blood cultures also reinitiate Zosyn as patient is having elevated white count and low-grade temps. Unable to complete a review of systems as patient is currently intubated and sedated in the intensive care unit Active Medications Albuterol/Ipratropium (Ipratropium-Albuterol 3 Ml Neb) 3 ml INHALATION RT-Q4H [facility] Last Admin: 08/22/24 04:33 Dose: 3 ml Atorvastatin Calcium (Atorvastatin 20 Mg Tab) 20 mg PO DAILY [facility] Last Admin: 08/21/24 08:41 Dose: Not Given Chlorhexidine Gluconate (Chlorhexidine Gluconate 15 Ml Cup) 15 ml MUCOUS MEM BID [facility] Last Admin: 08/21/24 20:16 Dose: 15 ml Dextrose/Water (Dextrose 50% Syringe 50 Ml) 25 ml IVP PER PROTOCOL PRN; Protocol PRN Reason: Hypoglycemia Dextrose/Water (Dextrose 50% Syringe 50 Ml) 50 ml IVP PER PROTOCOL PRN; Protocol PRN Reason: Hypoglycemia Escitalopram Oxalate (Escitalopram 10 Mg Tab) 10 mg PO DAILY [facility] Last Admin: 08/21/24 08:41 Dose: Not Given Furosemide (Furosemide 10 Mg/Ml 4 Ml Vial) 40 mg IV Q8HR [facility] Last Admin: 08/22/24 00:46 Dose: 40 mg Heparin Sodium (Porcine) (Heparin Sodium 1,000 Un/Ml (10ml Vl)) 0 unit IV PER PROTOCOL PRN; Protocol PRN Reason: Low PTT Last Admin: 08/19/24 05:53 Dose: 2,840 unit Hydromorphone HCl (Hydromorphone 0.5 Mg/0.5 Ml Syringe) 0.5 mg IVP Q4HR PRN PRN Reason: Moderate Pain (Scale 4 to 6) Last Admin: 08/22/24 00:44 Dose: 0.5 mg Hydromorphone HCl (Hydromorphone 1 Mg/Ml 1 Ml Syringe) 1 mg IVP Q4HR PRN PRN Reason: Severe Pain (Scale 7 to 10) Last Admin: 08/21/24 06:57 Dose: 1 mg Fluconazole/Sodium Chloride (200 mg/ IV Solution) 100 mls @ 100 mls/hr IVPB DAILY [facility]; Protocol Last Admin: 08/21/24 08:41 Dose: 100 mls/hr Norepinephrine Bitartrate 32 (mg/ Sodium Chloride) 250 mls @ 2.06 mls/hr IV .Q24H [facility]; Protocol Last Titration: 08/22/24 05:01 Dose: 0 mcg/kg/min, 0 mls/hr Heparin Sodium/Sodium Chloride (25,000 unit/ Sodium Chloride) 250 mls @ 10 mls/hr IV .Q24H [facility]; Protocol Last Admin: 08/21/24 18:53 Dose: 14.19 units/kg/hr, 20.788 mls/hr Lactated Ringer's (Lactated Ringers) 1,000 mls @ 20 mls/hr IV .Q24H [facility] Last Admin: 08/21/24 12:47 Dose: Not Given Parenteral Vitamin Supplement 10 ml/ Zinc/Copper/Manganese/Selenium 1 ml/ Sodium Acetate 16 meq/ Potassium Phosphate 9 mmol/ Magnesium Sulfate 0.75 gm/ Potassium Chloride 30 meq/Calcium Gluconate 1 gm/ Amino Acids/Dextrose 1,048.5 mls @ 80 mls/hr IV .BY DURATION [facility] Last Admin: 08/21/24 17:13 Dose: 80 mls/hr Sodium Acetate 16 meq/Potassium Phosphate 9 mmol/Magnesium Sulfate 0.75 gm/Potassium Chloride 30 meq/Calcium Gluconate 1 gm/ Amino Acids/Dextrose 1,037.5 mls @ 80 mls/hr IV .BY DURATION [facility] Fat Emulsion Intravenous 250 (ml/ IV Solution) 250 mls @ 21 mls/hr IV Q72H [facility] Acetaminophen 1,000 mg/ IV (Solution) 100 mls @ 400 mls/hr IVPB Q6HR [facility] Stop: 08/22/24 12:01 Last Admin: 08/22/24 05:00 Dose: 400 mls/hr Dexmedetomidine HCl 400 mcg/ (IV Solution) 100 mls @ 5.575 mls/hr IV .[id number] [facility]; Protocol Last Admin: 08/22/24 05:20 Dose: 0.4 mcg/kg/hr, 11.15 mls/hr Piperacillin Sod/Tazobactam (Sod 3.375 gm/ Sodium Chloride) 100 mls @ 25 mls/hr IVPB Q8HR [facility]; Protocol Last Admin: 08/22/24 00:46 Dose: 25 mls/hr Insulin Glargine (Insulin Glargine (Lantus) 100 Unit/Ml Syr) 20 unit SQ DAILY@0700 [facility] Last Admin: 08/21/24 08:42 Dose: 20 unit Insulin Glargine (Insulin Glargine (Lantus) 100 Unit/Ml Syr) 20 unit SQ HS [facility] Last Admin: 08/21/24 20:17 Dose: 20 unit Insulin Human Lispro (Insulin Lispro (Humalog) 100 Unit/Ml 10 Ml Vl) 0 unit SQ Q6HR [facility]; Protocol Last Admin: 08/22/24 00:52 Dose: 12 unit Metoprolol Tartrate (Metoprolol Tartrate 5 Mg/5 Ml Vial) 5 mg IVP Q6H [facility] Last Admin: 08/22/24 03:55 Dose: Not Given Miscellaneous Information (Potassium Replacement Protocol 1 Each Misc) 1 each MISCELLANE DAILY PRN; Protocol PRN Reason: Per Protocol Naloxone HCl (Naloxone 0.4 Mg/Ml 1 Ml Vial) 0.2 mg IV Q2M PRN PRN Reason: Opioid Reversal Pantoprazole Sodium (Pantoprazole 40 Mg/10 Ml Vial) 40 mg IVP BID [facility] Last Admin: 08/21/24 20:16 Dose: 40 mg Timolol Maleate (Timolol 0.5% Ophth Drops 5 Ml Btl) 1 drops BOTH EYES DAILY [facility] Last Admin: 08/21/24 08:43 Dose: 1 drops PHYSICAL EXAMINATION: GENERAL: The patient is sedated, remains on mechanical ventilation with an FiO2 is 50%. Well developed, ill-appearing, elderly appearing, obese. Pale HEENT: Pupils are round and equally reacting to light. EOMI. No scleral icterus. No conjunctival pallor. Normocephalic, atraumatic. No pharyngeal erythema. No thyromegaly. CARDIOVASCULAR: S1 and S2 muffled PULMONARY: Diminished breath sounds bilaterally with some faint crackles noted ABDOMEN: Soft, obese, nontender, nondistended, Hypoactive bowel sounds. No palpable organomegaly. Mid line incision intact no surrounding erythema or drainage MUSCULOSKELETAL: No joint swelling or deformity. EXTREMITIES: No cyanosis, clubbing, or pedal edema. Upper and lower generalized edema, 1+ pitting NEUROLOGICAL: Gross neurological examination did not reveal any focal deficits. Diffusely weak SKIN: No rashes. Pale Assessment: Perforated gastric ulcer pneumoperitoneum postoperative day #8 surgical repair with Kiet patch Septic shock secondary to above Acute kidney injury due to acute tubular necrosis from infection Atrial fibrillation with rapid ventricular rate, currently rate controlled Acute CHF exacerbation, systolic dysfunction EF 35-40%. History of atrial fibrillation, maintained on oral anticoagulant outpatient Diabetes mellitus type 2 History of stage III pancreatic cancer History hypertension Hyperlipidemia Obesity with a BMI of 35.1 VTE prophylaxis as per primary GI prophylaxis continues on IV heparin Full code Plan: Due to runs of V. tach Cardizem has been discontinued patient is been started on IV push Lopressor with cardiology following and also requiring low-dose pressor support which is being weaned as tolerated. Continue IV heparin for now Patient with significant fluid overload noted in upper and lower extremities, continue IV Lasix 40 mg every 8 hours Patient is continued on fluconazole and will reinitiate Zosyn as patient is having increased white count and low-grade temps. Repeat cultures ordered and pending Patient maintained in the ICU and will continue as there were attempts to extubate the patient although unsuccessful and patient is currently maintained on FiO2 of 50% with a PEEP of 5 Continue on TPN Recommend to monitor Accu-Cheks ACHS and will continue with sliding scale and adjust insulins accordingly Recommend repeat labs in the a.m. We will continue to follow with general surgery during hospitalization. Thank you for this consultation. Overall prognosis is guarded at this time The impression and plan of care has been dictated by Chinyere Pruitt, Nurse Practitioner as directed. Dr. Miky MD I have performed a history and physical examination and medical decision making of this patient, discussed the same with the dictator, and agree with the dictators assessment and plan as written, documented as a scribe. Based on total visit time, I have performed more than 50% of this visit. Objective - Vital Signs Vital signs: Vital Signs Temp 99.6 F 08/22/24 04:00 Pulse 82 08/22/24 05:15 Resp 19 08/22/24 04:45 BP 107/56 08/22/24 05:15 Pulse Ox 100 08/22/24 05:15 FiO2 30 08/22/24 04:34 Intake & Output 08/21/24 08/21/24 08/22/24 06:59 18:59 06:59 Intake Total 0181.201 7786.433 1294.385 Output Total 1620 2305 1530 Balance -129.829 373.433 -235.615 Weight 111.5 kg 111.5 kg 111.1 kg Intake: IV 1240 1495 1200 .9NS KVO 180 255 200 ACETAMINOPHEN IV (For NPO 100 ) 1,000 mg In Empty Bag 1 bag @ 400 mls/hr IVPB Q6HR PRN Rx#:[id number] Mvi, Adult No.4 with Vit 960 1040 800 K 10 ml Trace (Conc-1Ml/ Dose) 1 ml Sodium Acetate 16 meq Potassium Acetate 14 meq Potassium Phosphate 21 mmol Magnesium Sulfate gm 0.75 gm Calcium Gluconate 1 gm In Amino Acids 5 %/ Dextrose 20 % 1,000 ml @ 75 mls/hr IV .[id number] [facility] Rx#:[id number] Piperacillin-Tazobactam 3 100 .375 gm In Sodium Chloride 0.9% 100 ml @ 25 mls/hr IVPB Q8HR [facility] Rx# :[id number] Potassium Chloride 20 meq 100 200 In Water For Injection 1 100ml.bag @ 50 mls/hr IVPB Q2H [facility] Rx#: [id number] Intake, IV Titration 250.171 585.433 94.385 Amount ACETAMINOPHEN IV (For NPO 100 ) 1,000 mg In Empty Bag 1 bag @ 400 mls/hr IVPB Q6HR [facility] Rx#:[id number] Dexmedetomidine/0.9% NaCl 15.890 62.210 (Pmx) 400 mcg In Empty Bag 1 bag @ 0.2 MCG/KG/HR 5.575 mls/hr IV .[id number] [facility] Rx#:[id number] Fluconazole in NaCl,Iso- 100 Osm 200 mg In Saline 1 100ml.bag @ 100 mls/hr IVPB DAILY [facility] Rx#: [id number] Heparin Sod,Pork in 0.45% 250 245.991 NaCl 25,000 unit In 0.45 % NaCl 1 250ml.bag @ 6. 826 UNITS/KG/HR 10 mls/hr IV .Q24H [facility] Rx#: [id number] Norepinephrine 32 mg In 0.171 23.552 32.175 Sodium Chloride 0.9% 218 ml @ 0.03 MCG/KG/MIN 2.06 mls/hr IV .Q24H [facility] Rx#: [id number] Piperacillin-Tazobactam 3 100 .375 gm In Sodium Chloride 0.9% 100 ml @ 25 mls/hr IVPB Q8HR [facility] Rx# :[id number] Blood Product 598 Rc As-1 Unit 310 [id number] Rc Pheresis 2 As3 Unit 288 [id number] Output: Drainage 20 20 0 Right abdominal ABDIAZIZ drain 20 20 0 Urine 1600 2285 1530 Other: Voiding Method Indwelling Catheter Indwelling Catheter Indwelling Catheter ABP, PAP, CO, CI - Last Documented Arterial Blood Pressure 126/54 - Labs CBC & Chem 7: 08/21/24 20:02 08/21/24 20:02 Labs: Abnormal Lab Results - Last 24 Hours (Table) 08/21/24 08/21/24 08/21/24 Range/Units 04:09 05:29 06:19 WBC (3.8-10.6) k/uL RBC (4.30-5.90) m/uL Hgb (13.0-17.5) gm/dL Hct (39.0-53.0) % MCH (25.0-35.0) pg MCHC (31.0-37.0) g/dL RDW (11.5-15.5) % Neutrophils # (Manual) 12.30 H (1.3-7.7) k/uL Lymphocytes # (Manual) 0.82 L (1.0-4.8) k/uL ABG pH (7.35-7.45) ABG pO2 (83-108) mmHg ABG HCO3 (21-25) mmol/L ABG Total CO2 (19-24) mmol/L Hemoglobin (13.0-17.5) gm/dL POC Glucose (mg/dL) 245 H (70-110) mg/dL Crossmatch See Detail 08/21/24 08/21/24 08/21/24 Range/Units 12:18 14:05 17:52 WBC 15.5 H (3.8-10.6) k/uL RBC 3.40 L (4.30-5.90) m/uL Hgb 8.2 L (13.0-17.5) gm/dL Hct 28.4 L (39.0-53.0) % MCH 24.2 L (25.0-35.0) pg MCHC 29.0 L (31.0-37.0) g/dL RDW 20.0 H (11.5-15.5) % Neutrophils # (Manual) 13.33 H (1.3-7.7) k/uL Lymphocytes # (Manual) (1.0-4.8) k/uL ABG pH (7.35-7.45) ABG pO2 (83-108) mmHg ABG HCO3 (21-25) mmol/L ABG Total CO2 (19-24) mmol/L Hemoglobin (13.0-17.5) gm/dL POC Glucose (mg/dL) 254 H 177 H (70-110) mg/dL Crossmatch 08/21/24 08/22/24 08/22/24 Range/Units 20:02 00:49 04:24 WBC 17.1 H (3.8-10.6) k/uL RBC 3.61 L (4.30-5.90) m/uL Hgb 9.0 L (13.0-17.5) gm/dL Hct 30.5 L (39.0-53.0) % MCH 24.9 L (25.0-35.0) pg MCHC 29.6 L (31.0-37.0) g/dL RDW 19.3 H (11.5-15.5) % Neutrophils # (Manual) (1.3-7.7) k/uL Lymphocytes # (Manual) (1.0-4.8) k/uL ABG pH 7.48 H (7.35-7.45) ABG pO2 79 L (83-108) mmHg ABG HCO3 28 H (21-25) mmol/L ABG Total CO2 29 H (19-24) mmol/L Hemoglobin 8.8 L (13.0-17.5) gm/dL POC Glucose (mg/dL) 278 H (70-110) mg/dL Crossmatch
[2024-08-22 05:45] LABS: Glucose,Whole Blood 249 mg/dL (70-110)
[2024-08-22 06:14] LABS: Anisocytosis Slight; HCT 31.6 % (39.0-53.0); HGB 9.1 gm/dL (13.0-17.5); Hypochromasia Marked; MCH 24.5 pg (25.0-35.0); MCV 84.7 fL (80.0-100.0); Mean Platelet Volume 8.6; Microcytosis Slight; Platelet Count 303 k/uL (150-450); Poikilocytosis Moderate; RBC 3.73 m/uL (4.30-5.90); RDW 19.2 % (11.5-15.5); WBC 13.1 k/uL (3.8-10.6)
[2024-08-22 06:29] LABS: African American GFR (CKD) 69 (>60 ml/min/1.73 sqM); Anion Gap 6 mmol/L; Blood Urea Nitrogen 44 mg/dL (9-20); Calcium 8.1 mg/dL (8.4-10.2); Carbon Dioxide 27 mmol/L (22-30); Chloride 104 mmol/L (98-107); Glucose 237 mg/dL (74-99); Magnesium 2.1 mg/dL (1.6-2.3); Non-African American GFR(CKD) 59 (>60 ml/min/1.73 sqM); Phosphorus 3.8 mg/dL (2.5-4.5); Potassium 3.9 mmol/L (3.5-5.1); Sodium 137 mmol/L (137-145)
[2024-08-22] MEDS: POTASSIUM CHLORIDE 10 MEQ in WATER FOR INJECTION 1 100ML.BAG IVPB SCH (07:09)
--- NOTE | 2024-08-22 07:24 | XR ---
EXAMINATION TYPE: XR chest 1V portable DATE OF EXAM: 08/22/2024 5:38 AM COMPARISON: Chest radiograph from one day prior. CLINICAL INDICATION: Male, 79 years old with history of Mechanical ventilation; [facility] TECHNIQUE: XR chest 1V portable Frontal view of the chest. FINDINGS: Lungs/Pleura: Blunting of the right costophrenic angle. There is no evidence of left pleural effusio n, focal consolidation, or pneumothorax Pulmonary vascularity: Unremarkable. Heart/mediastinum: Cardiomediastinal silhouette is unremarkable. Musculoskeletal: No acute osseous pathology. Other findings: None Lines/Tubes: Endotracheal tube with distal tip 3.8cm above the shakira. Nasogastric tube with its distal tip and side-port projecting under the diaphragm. Right internal jugular central venous catheter with distal tip at the cavoatrial junction. IMPRESSION: 1. Right pleural effusion. 2. Stable support jorge and tubes. [facility], , 08/22/2024 7:22 AM
[2024-08-22 10:31] LABS: Band Neutrophils % 1 %; Eosinophils # (M) 0.26 k/uL (0-0.7); Lymphocytes # (M) 1.97 k/uL (1.0-4.8); Monocytes # (M) 0.52 k/uL (0-1.0); Neutrophils % (M) 78 %; Nucleated Red Blood Cells 0 /100 WBC (0-0); Total Cells Counted 100
--- NOTE | 2024-08-22 12:18 | CA ---
Transthoracic Echo Report Name: Clinton Simmons Age: 79 Gender: M : 1945 Exam Date: 08/22/2024 08:10 Exam Location: [place] [facility] Ht (in): 70 Wt (lb): 245 Ordering Physician: Chinyere Pruitt Attending/Referring Phys: [employer] Vicki Sanchez RDCS Procedure CPT: Indications: Hypotension Cardiac Hx: Technical Quality: Fair Contrast 1: Total Dose (mL): Contrast 2: Total Dose (mL): MEASUREMENTS (Male / Female) Normal Values 2D ECHO LV Diastolic Diameter PLAX 5.5 cm 4.2 - 5.9 / 3.9 - 5.3 cm LV Systolic Diameter PLAX 4.5 cm IVS Diastolic Thickness 1.0 cm 0.6 - 1.0 / 0.6 - 0.9 cm LVPW Diastolic Thickness 1.1 cm 0.6 - 1.0 / 0.6 - 0.9 cm LV Relative Wall Thickness 0.4 RV Internal Dim ED PLAX 2.8 cm LA Systolic Diameter LX 5.0 cm 3.0 - 4.0 / 2.7 - 3.8 cm LV Diastolic Volume MOD BP 87.1 cm??? 67 - 155 / 56 - 104 cm??? LV Systolic Volume MOD BP 66.1 cm??? 22 - 58 / 19 - 49 cm??? LV Ejection Fraction MOD BP 24.2 % >= 55 % LV Cardiac Index MOD BP 1343.5 cm???/min???m??? LV Diastolic Volume MOD 4C 79.9 cm??? LV Systolic Volume MOD 4C 61.0 cm??? LV Ejection Fraction MOD 4C 23.7 % LV Cardiac Index MOD 4C 1207.2 cm???/min???m??? LV Diastolic Length 4C 7.4 cm LV Systolic Length 4C 7.6 cm LV Diastolic Volume MOD 2C 94.6 cm??? LV Systolic Volume MOD 2C 69.2 cm??? LV Ejection Fraction MOD 2C 26.8 % LV Cardiac Index MOD 2C 1615.8 cm???/min???m??? LV Diastolic Length 2C 7.5 cm LV Systolic Length 2C 7.9 cm FINDINGS Left Ventricle Left ventricular ejection fraction is estimated at 35-40 %. Mildly increased left ventricular systolic volume. Severely decreased left ventricular ejection fraction. Patient is in atrial fibrillation Right Ventricle Right Atrium Left Atrium Moderately increased left atrial diameter. Mitral Valve Aortic Valve Tricuspid Valve Pulmonic Valve Pericardium Aorta CONCLUSIONS Ejection fraction is 35 to 40% patient is in atrial fibrillation. No pericardial effusion Previewed by: Dr. Lisa Ho MD (Electronically Signed) Final Date: 22 August 2024 12:17
--- NOTE | 2024-08-22 12:41 | P.PN ---
Subjective Progress Note Date: 08/22/24 SURGICAL PROGRESS NOTE CHIEF COMPLAINT: Perforated gastric ulcer HISTORY OF PRESENT ILLNESS: Patient is postop day #9 status post exploratory laparotomy and modified Kiet patch for perforated gastric ulcer. Patient remains in the ICU and on mechanical ventilation. He is currently CPAP being. He is on Precedex, small more on Levophed and IV heparin. ABDIAZIZ drain with 5 mL serosanguineous output. He did have low-grade temps last night Tmax of 100.7. WBC is down from 17-13 hemoglobin 9.1 from 6.9 after 2 units of blood. No further bleeding noted from NG tube PHYSICAL EXAM: VITAL SIGNS: Reviewed. GENERAL: no acute distress. ABDOMEN: Soft. Nondistended. Incisional dressing dry and intact. Couple areas of shadowing noted on dressing. ABDIAZIZ drain serosanguineous output NEUROLOGIC: Intubated ASSESSMENT: 1. Perforated gastric ulcer status post exploratory laparotomy and modified Kiet patch 2. Hypokalemia improved 3. A-fib on IV heparin PLAN: -Recommend upper GI after patient is extubated -Continue TPN for nutrition support -Continue ICU management -Continue supportive care -Continue NG tube to low intermittent suction -Keep n.p.o. -Continue antibiotics -Continue to monitor ABDIAZIZ drain -Continue IV Protonix -Continue to monitor hemoglobin -Resume IV Tylenol Physician [employer] note has been reviewed by physician. Signing provider agrees with the documented findings, assessment, and plan of care. Attestation Patient seen and examined at bedside. Weaned off of Levophed. ABDIAZIZ output extremely minimal. Hemoglobin stabilized. ICU still working on extubation. Continue nasogastric tube at this time and plan for upper GI once patient is extubated. Continue TPN for nutritional support. Alise aGllardo DO Objective - Vital Signs Vital signs: Vital Signs Temp 99.6 F 08/22/24 04:00 Pulse 84 08/22/24 12:28 Resp 10 L 08/22/24 05:30 BP 121/68 08/22/24 07:00 Pulse Ox 97 08/22/24 06:15 FiO2 30 08/22/24 12:18 Intake & Output 08/21/24 08/22/24 08/22/24 18:59 06:59 18:59 Intake Total 2678.433 1642.907 190 Output Total 2305 1630 95 Balance 373.433 12.907 95 Weight 111.5 kg 111.1 kg Intake: IV 1495 1290 190 .9NS KVO 255 210 10 ACETAMINOPHEN IV (For NPO 100 ) 1,000 mg In Empty Bag 1 bag @ 400 mls/hr IVPB Q6HR PRN Rx#:[id number] Mvi, Adult No.4 with Vit 1040 880 80 K 10 ml Trace (Conc-1Ml/ Dose) 1 ml Sodium Acetate 16 meq Potassium Acetate 14 meq Potassium Phosphate 21 mmol Magnesium Sulfate gm 0.75 gm Calcium Gluconate 1 gm In Amino Acids 5 %/ Dextrose 20 % 1,000 ml @ 75 mls/hr IV .[id number] [facility] Rx#:[id number] Piperacillin-Tazobactam 3 100 .375 gm In Sodium Chloride 0.9% 100 ml @ 25 mls/hr IVPB Q8HR [facility] Rx# :[id number] Potassium Chloride 10 meq 100 In Water For Injection 1 100ml.bag @ 100 mls/hr IVPB Q1H [facility] Rx#: [id number] Potassium Chloride 20 meq 200 In Water For Injection 1 100ml.bag @ 50 mls/hr IVPB Q2H [facility] Rx#: [id number] Intake, IV Titration 585.433 352.907 Amount ACETAMINOPHEN IV (For NPO 100 ) 1,000 mg In Empty Bag 1 bag @ 400 mls/hr IVPB Q6HR [facility] Rx#:[id number] Dexmedetomidine/0.9% NaCl 15.890 67.413 (Pmx) 400 mcg In Empty Bag 1 bag @ 0.2 MCG/KG/HR 5.575 mls/hr IV .[id number] [facility] Rx#:[id number] Fluconazole in NaCl,Iso- 100 Osm 200 mg In Saline 1 100ml.bag @ 100 mls/hr IVPB DAILY [facility] Rx#: [id number] Heparin Sod,Pork in 0.45% 245.991 250 NaCl 25,000 unit In 0.45 % NaCl 1 250ml.bag @ 6. 826 UNITS/KG/HR 10 mls/hr IV .Q24H [facility] Rx#: [id number] Norepinephrine 32 mg In 23.552 35.494 Sodium Chloride 0.9% 218 ml @ 0.03 MCG/KG/MIN 2.06 mls/hr IV .Q24H [facility] Rx#: [id number] Piperacillin-Tazobactam 3 100 .375 gm In Sodium Chloride 0.9% 100 ml @ 25 mls/hr IVPB Q8HR [facility] Rx# :[id number] Blood Product 598 Rc As-1 Unit 310 [id number] Rc Pheresis 2 As3 Unit 288 [id number] Output: Drainage 20 0 5 Right abdominal ABDIAZIZ drain 20 0 5 Urine 2285 1630 90 Other: Voiding Method Indwelling Catheter Indwelling Catheter ABP, PAP, CO, CI - Last Documented Arterial Blood Pressure 126/54 - Labs CBC & Chem 7: 08/22/24 05:19 08/22/24 05:19 Labs: Abnormal Lab Results - Last 24 Hours (Table) 08/21/24 08/21/24 08/21/24 Range/Units 05:29 14:05 17:52 WBC 15.5 H (3.8-10.6) k/uL RBC 3.40 L (4.30-5.90) m/uL Hgb 8.2 L (13.0-17.5) gm/dL Hct 28.4 L (39.0-53.0) % MCH 24.2 L (25.0-35.0) pg MCHC 29.0 L (31.0-37.0) g/dL RDW 20.0 H (11.5-15.5) % Neutrophils # (Manual) 13.33 H (1.3-7.7) k/uL APTT (22.0-30.0) sec ABG pH (7.35-7.45) ABG pO2 (83-108) mmHg ABG HCO3 (21-25) mmol/L ABG Total CO2 (19-24) mmol/L Hemoglobin (13.0-17.5) gm/dL BUN (9-20) mg/dL Glucose (74-99) mg/dL POC Glucose (mg/dL) 177 H (70-110) mg/dL Calcium (8.4-10.2) mg/dL Crossmatch See Detail 08/21/24 08/22/24 08/22/24 Range/Units 20:02 00:49 04:24 WBC 17.1 H (3.8-10.6) k/uL RBC 3.61 L (4.30-5.90) m/uL Hgb 9.0 L (13.0-17.5) gm/dL Hct 30.5 L (39.0-53.0) % MCH 24.9 L (25.0-35.0) pg MCHC 29.6 L (31.0-37.0) g/dL RDW 19.3 H (11.5-15.5) % Neutrophils # (Manual) (1.3-7.7) k/uL APTT (22.0-30.0) sec ABG pH 7.48 H (7.35-7.45) ABG pO2 79 L (83-108) mmHg ABG HCO3 28 H (21-25) mmol/L ABG Total CO2 29 H (19-24) mmol/L Hemoglobin 8.8 L (13.0-17.5) gm/dL BUN (9-20) mg/dL Glucose (74-99) mg/dL POC Glucose (mg/dL) 278 H (70-110) mg/dL Calcium (8.4-10.2) mg/dL Crossmatch 08/22/24 08/22/24 08/22/24 Range/Units 05:19 05:19 05:19 WBC 13.1 H (3.8-10.6) k/uL RBC 3.73 L (4.30-5.90) m/uL Hgb 9.1 L (13.0-17.5) gm/dL Hct 31.6 L (39.0-53.0) % MCH 24.5 L (25.0-35.0) pg MCHC 29.0 L (31.0-37.0) g/dL RDW 19.2 H (11.5-15.5) % Neutrophils # (Manual) 10.30 H (1.3-7.7) k/uL APTT 44.7 H (22.0-30.0) sec ABG pH (7.35-7.45) ABG pO2 (83-108) mmHg ABG HCO3 (21-25) mmol/L ABG Total CO2 (19-24) mmol/L Hemoglobin (13.0-17.5) gm/dL BUN 44 H (9-20) mg/dL Glucose 237 H (74-99) mg/dL POC Glucose (mg/dL) (70-110) mg/dL Calcium 8.1 L (8.4-10.2) mg/dL Crossmatch 08/22/24 Range/Units 05:43 WBC (3.8-10.6) k/uL RBC (4.30-5.90) m/uL Hgb (13.0-17.5) gm/dL Hct (39.0-53.0) % MCH (25.0-35.0) pg MCHC (31.0-37.0) g/dL RDW (11.5-15.5) % Neutrophils # (Manual) (1.3-7.7) k/uL APTT (22.0-30.0) sec ABG pH (7.35-7.45) ABG pO2 (83-108) mmHg ABG HCO3 (21-25) mmol/L ABG Total CO2 (19-24) mmol/L Hemoglobin (13.0-17.5) gm/dL BUN (9-20) mg/dL Glucose (74-99) mg/dL POC Glucose (mg/dL) 249 H (70-110) mg/dL Calcium (8.4-10.2) mg/dL Crossmatch
--- NOTE | 2024-08-22 13:40 | P.PN ---
Subjective Progress Note Date: 08/22/24 Principal diagnosis: Acute pneumoperitoneum secondary to perforated gastric ulcer status post exploratory laparotomy, abdominal washout and modified Kiet patch procedure postoperative day #10 On 08/14/2024, this patient is being seen for a follow-up. The patient is postop day #2. The patient was found to have a perforated gastric ulcer with pneumoperitoneum. The patient underwent expected laparotomy abdominal washout and a modified Kiet patch. The patient is postop day #2. This morning, the patient remains intubated on mechanical ventilator. The patient on propofol running at 40 mcg/kg/min. Remains on active drinking at 125 cc an hour. Remains on norepinephrine running at 0.11 mcg/kg/min and vasopressin physiologic dose. On a mechanical ventilator, assist-control mode with rate of 18, tidal volume of 500, FiO2 30% with a PEEP of 5. Blood gas with a pH of 7.38 with a pCO2 of 33 and pO2 of 79. The patient's rhythm is atrial fibrillation. The patient has a ABDIAZIZ drain output is minimal at this point, the patient is covered with a combination of Zosyn and Diflucan. The patient received a total of 2 units of packed RBC postop. Blood work from today shows a WBC count of 26, hemoglobin 9.5 and a platelet count of 457. Sodium is at 139, BUN is 18 with a creatinine of 2.5 and a BUN of 71. Serum bicarbonate of 18. The patient does have an underlying acute on top of chronic kidney disease. He is febrile with a temperature of 101.7. He remains tachycardic. On 08/15/2024, the patient is being seen for a follow-up. This morning, the patient is still intubated on the mechanical ventilator. The patient sedated on propofol which is running at 40 mcg/kg/min. Remains on a mechanical ventilator assist-control mode at rate of 18, tidal volume of 500, FiO2 of 30% with a PEEP of 5. Blood gas from today showed a pH of 7.45 with a pCO2 of 35 and pO2 of 75. Chest x-ray from today shows ET tube in adequate location. Findings are consistent with CHF and volume overload and some worsening in the left basilar opacity/atelectasis. Hemodynamically, the patient remains in atrial fibrillation. Heart rate is under better control. The patient is on Cardizem drip that this has been weaned down to 2.5 mg an hour and the patient remains on IV heparin this was tolerated yesterday. At the same time, the patient remains on norepinephrine running at 0.1 mcg/kg/min and vasopressin physiologic dose. Lactated Ringer's running at a rate of 125 cc an hour and the patient is a positive fluid balance of 2.4 L. ABDIAZIZ output is minimal in the order of 5 to 10 cc over the past 12 hours. NG output is also minimal. Rest of the blood work showed a white cell count of 27.7, hemoglobin 8.5 and a platelet count of 407. The sodium levels at 141, BUN 58 with a creatinine of 2.1. Serum bicarb is at 23 and the chloride is 109. Glucose is 870. The blood cultures are still negative.Echocardiogram showed a impaired LV function with ejection fraction of 35 to 40%. Right ventricular systolic pressure is at 54. 08/16/2024, patient is being seen for a follow-up in the intensive care unit. This morning, the patient remains intubated on mechanical ventilator. The patient sedated on propofol running at 40 mcg/kg/min. The patient is on assist- control mode with rate of 18, tidal volume of 500, FiO2 30% with a PEEP of 5. Blood gas showed a pH of 7.46 with a pCO2 of 37 and pO2 of 71. Chest x-ray from this morning shows worsening pulmonary vascular congestion and cardiomegaly with development of bilateral pleural effusions. There are some atelectatic changes in lung bases bilaterally. The patient was started on TPN which is currently running at 30 cc an hour. IV fluids are currently at KVO. Output from the NG tube is minimal in the order of 10 cc over the past 8 hours, output from the ABDIAZIZ is minimal in the order of 10 cc an hour. The patient is in atrial fibrillation. The patient is having occasional PVCs. Remains on Cardizem drip at 2.5 mg an hour and the patient is also on IV heparin. Norepinephrine is running at 0.09 mcg/kg/min. The white cell count is improved and is currently down to 20 with a hemoglobin of 8 and a platelet count of 345. BUN is 49 with a creatinine of 1.87. Sodium levels at 142, potassium level is at 3.7, chloride is 110. Remains on a combination of Zosyn and Diflucan. On 08/17/2024, patient is being seen for a follow-up. This morning, the patient remains on propofol which is running at 40 mcg/kg/min. The patient was given sedation holiday yesterday. This was reported as the patient started having significant activities. The cardiac rhythm remains atrial fibrillation with controlled rate. This morning, the patient is calm and comfortable on propofol. He is on assist-control mode of mechanical ventilation at rate of 14, tidal volume of 500, FiO2 of 30% with a PEEP of 5. IV fluids are currently at KVO and the patient remains on TPN at a rate of 50 cc an hour. The patient is on low-dose norepinephrine running at 0.01 mcg/kg/min. The blood gas showed a pH of 7.46 with a pCO2 35 and pO2 of 70. Chest x-ray shows atelectatic changes and bilateral pleural effusions. NG tube output is in order of 100 cc over the past 8 hours. ABDIAZIZ output is in the order of 60 cc over the past 12 hours. The patient remains on IV heparin. The patient is off the Cardizem drip for now. The rest of the blood work shows a white cell count of 18, hemoglobin of 7.5 and a platelet count of 305. The sodium levels at 142, potassium level 3.8, chloride 112 and the bicarbonate is a 24. BUN 39 and a creatinine of 1.6. Blood sugars are elevated and the Lantus insulin dose will be further adjusted. No fever. No other significant events. Abdominal wound is dry clean and intact. 08/18/2024, the patient is being seen for a follow-up. She had another sedation holiday because of tachypnea and restlessness and asynchrony with a mechanical ventilator. This morning, he is on propofol. Will do a gradual propofol wean and use Precedex if needed. He is currently on propofol running at 20 mcg/kg/min. Remains on assist-control mode at rate of 14, tidal volume of 500, FiO2 of 30% with a PEEP of 5. Blood gas showed a pH of 7.43 with a pCO2 of 39 and pO2 of 88. Chest x-ray is unchanged and there is atelectatic change in the fusion lung base bilaterally. Remains on TPN for nutritional support with rate of 50 cc an hour. IV fluids are KVO. NG output is in the order of 200 cc over the past 24 hours. ABDIAZIZ output is in the order of 45 cc. Remains on norepinephrine at a dose of 0.01 mcg/kg/min. The fluid balance is -1.2 L over the past 24 hours and the patient remains on IV Lasix 40 mg every 12 hours. The patient is also on Zosyn and Diflucan. Afebrile. Hemodynamically stable with low-dose pressors. The white cell count is 18, hemoglobin 7.4 and a platelet count of 335. The BUN is 38 with a creatinine of 1.4. Sodium is at 142, bicarb is at 24. Blood sugars at 230 and Lantus dose has been modified. No other significant events overnight. On 08/19/2024, the patient is being seen for a follow-up. Remains intubated on mechanical ventilatory patient has been off propofol for the past 24 hours. He is opening his eyes and moving. Nevertheless, is not following commands yet. Bobbi coronado continues to be quite sedated. As such, no weaning trials have been done awaiting further improvement in his mentation. Cardiac rhythm is atrial fibrillation and the patient remains on IV heparin. Rate is controlled. Remains on low-dose norepinephrine which is running at 0.05 mcg/kg/min. He is on TPN at rate of 80 cc an hour. He is on the IV Lasix 40 mg every 12 hours and the fluid balance -238 cc over the past 24 hours. He is on the mechanical ventilator assist-control mode at rate of 14, tidal volume of 500, FiO2 of 30% with a PEEP of 5. Blood gas showed a pH of 7.43 with a pCO2 of 39 and pO2 of 95. NG tube output has been 50 cc over the past 12 hours. ABDIAZIZ output is minimal. Blood work from today shows a white cell count of 17, hemoglobin 7.3 and a platelet count of 319. Sodium is at 143, BUN 37 and the creatinine is at 1.45. Remains on Zosyn and Diflucan. Blood sugar control with Lantus. On 08/20/2024, the patient is off sedation the patient has been off propofol for the past 48 hours. He is still not fully awake. He moves around. Withdraws to painful stimulation. At times, he gets slightly restless. Nevertheless, he is not awake and he is not following any commands and his level of alertness remains quite diminished. For that reason, I recommended a CAT scan of the head to investigate ongoing altered mentation. The patient remains on the mechanical ventilator assist-control mode rate of 14, tidal volume of 500, FiO2 30% with a PEEP of 5. Blood gas showed a pH of 7.44 with pCO2 41 and pO2 of 97. Fluid balance is negative to 11 cc over the past 24 hours. Hemoglobin stable at 7.1 and the creatinine is down to 1.3. The patient remains on low-dose norepinephrine running at 0.02 mcg/kg/min. NG tube output is in the order of 150 cc over the past 24 hours and the patient was started on TPN for additional support. IV fluids are currently at KVO. The patient continues to be in atrial fibrillation with a controlled rate. The patient is having frequent ectopies. The patient remains on IV heparin. Antibiotic coverage include Zosyn and antico agulation with Diflucan. He is being diuresed with IV Lasix 40 mg p.o. 12 hours and a dose will be modified. The patient is on Lantus insulin 20 units twice a day and sliding scale coverage. No other significant events overnight. Patient was evaluated today on 08/21/2024, remains in the ICU intubated and mechanically ventilated, on assist-control rate of 14 tidal volume 500 FiO2 30% and PEEP of 5. Patient is now postoperative day #8, his ABG showed a pO2 of 136 pCO2 4 0 pH of 7.47 hence I did not make any ventilator changes. Patient remains on TPN, he is off propofol today, and I would like to give him a trial of weaning if we need to place on Precedex, will keep placed on Precedex, and give the patient a trial of weaning possibly today. We tried this today, and the patient became extremely agitated restless, he had to be placed back on mechanical ventilation/assist-control rate, he was tried on a pressure support of 10 and CPAP, tolerated for less than half an hour. But then as he got agitated patient required Dilaudid, and now I am recommending Precedex trial on this patient. His hemoglobin today is 6.9, hence he will receive 1 unit of packed RBCs. Remains on Zosyn and Diflucan, remains on Lasix 40 mg IV push every 8 hours. His ABDIAZIZ drain is showing minimal drainage, CT of the abdomen is negative. Patient is now postoperative day #8, had a perforated gastric ulcer. The goal today is to hopefully address weaning, his chest x-ray shows a good sized right-sided pleural effusion, may eventually require thoracentesis. Continues to have leukocytosis with WC BC count of 13.7 hemoglobin 6.9 basic metabolic profile is normal bicarb is 32 BUN is 44 creatinine 1.28, steadily improving compared to creatinine of 2.55 on admission. Patient was seen today on 08/22/2024, remains in the ICU, intubated and mechanically ventilated. On assist-control rate of 14 tidal volume 500 FiO2 30% PEEP of 5 ABG showed a pO2 of 79 pCO2 37 pH of 7.48, hence patient was kept on the same vent settings, and considering the patient is calm on Precedex today, I am recommending that we give him a trial of pressure support of 12 and CPAP. If tolerated will go to a pressure support of 8 and CPAP for about half an hour and then if tolerated we could consider checking weaning parameters, ABG on pressure support of 8 and CPAP, and if he continues to do well may even proceed to extubation. His hemoglobin today is 9.1, patient received a total of 4 units of packed RBCs since this admission. Patient is still requiring norepinephrine at 0.03 mcg per kilo per minute he is also on TPN at 80 cc/h he is on heparin drip, Precedex, and off propofol. Labs were all reviewed, WBC count is 13.1 hemoglobin is 9.1. Basic metabolic profile is normal BUN is 44 creatinine 1.17, steadily improving since his admission with creatinine of 2.55 initially. Chest x-ray showed right lower lobe atelectasis and possibly a small right-sided pleural effusion Objective - Vital Signs Vital signs: Vital Signs Temp 97.9 F 08/22/24 12:00 Pulse 94 08/22/24 13:00 Resp 0 L 08/22/24 12:45 BP 107/60 08/22/24 13:00 Pulse Ox 95 08/22/24 13:00 FiO2 30 08/22/24 12:18 Intake & Output 08/21/24 08/22/24 08/22/24 18:59 06:59 18:59 Intake Total 2678.433 1642.907 250 Output Total 2305 1630 570 Balance 373.433 12.907 -320 Weight 111.5 kg 111.1 kg Intake: IV 1495 1290 250 .9NS KVO 255 210 70 ACETAMINOPHEN IV (For NPO 100 ) 1,000 mg In Empty Bag 1 bag @ 400 mls/hr IVPB Q6HR PRN Rx#:[id number] Mvi, Adult No.4 with Vit 1040 880 80 K 10 ml Trace (Conc-1Ml/ Dose) 1 ml Sodium Acetate 16 meq Potassium Acetate 14 meq Potassium Phosphate 21 mmol Magnesium Sulfate gm 0.75 gm Calcium Gluconate 1 gm In Amino Acids 5 %/ Dextrose 20 % 1,000 ml @ 75 mls/hr IV .[id number] [facility] Rx#:[id number] Piperacillin-Tazobactam 3 100 .375 gm In Sodium Chloride 0.9% 100 ml @ 25 mls/hr IVPB Q8HR [facility] Rx# :[id number] Potassium Chloride 10 meq 100 In Water For Injection 1 100ml.bag @ 100 mls/hr IVPB Q1H [facility] Rx#: [id number] Potassium Chloride 20 meq 200 In Water For Injection 1 100ml.bag @ 50 mls/hr IVPB Q2H [facility] Rx#: [id number] Intake, IV Titration 585.433 352.907 Amount ACETAMINOPHEN IV (For NPO 100 ) 1,000 mg In Empty Bag 1 bag @ 400 mls/hr IVPB Q6HR [facility] Rx#:[id number] Dexmedetomidine/0.9% NaCl 15.890 67.413 (Pmx) 400 mcg In Empty Bag 1 bag @ 0.2 MCG/KG/HR 5.575 mls/hr IV .[id number] [facility] Rx#:[id number] Fluconazole in NaCl,Iso- 100 Osm 200 mg In Saline 1 100ml.bag @ 100 mls/hr IVPB DAILY [facility] Rx#: [id number] Heparin Sod,Pork in 0.45% 245.991 250 NaCl 25,000 unit In 0.45 % NaCl 1 250ml.bag @ 6. 826 UNITS/KG/HR 10 mls/hr IV .Q24H [facility] Rx#: [id number] Norepinephrine 32 mg In 23.552 35.494 Sodium Chloride 0.9% 218 ml @ 0.03 MCG/KG/MIN 2.06 mls/hr IV .Q24H [facility] Rx#: [id number] Piperacillin-Tazobactam 3 100 .375 gm In Sodium Chloride 0.9% 100 ml @ 25 mls/hr IVPB Q8HR [facility] Rx# :[id number] Blood Product 598 Rc As-1 Unit 310 [id number] Rc Pheresis 2 As3 Unit 288 [id number] Output: Drainage 20 0 5 Right abdominal ABDIAZIZ drain 20 0 5 Urine 2285 1630 565 Other: Voiding Method Indwelling Catheter Indwelling Catheter Indwelling Catheter ABP, PAP, CO, CI - Last Documented Arterial Blood Pressure 126/54 - Exam GENERAL EXAM: Revealed 79-year-old white male intubated mechanically ventilated, sedated, on Precedex HEAD: Normocephalic. EYES: Sluggish reaction of pupils, equal size. NOSE: Clear with pink turbinates. THROAT: No erythema or exudates. Orogastric tube and endotracheal tube are intact. NECK: No masses, no JVD. Right IJ triple-lumen catheter in place. CHEST: No chest wall deformity. LUNGS: Diminished breath sounds at the right base no crackles rhonchi or wheezes CVS: S1 and S irregular consistent with atrial fibrillation with no audible murmur, irregular rhythm. The rate is controlled. Yeah ABDOMEN: Abdominal dressing dry and intact. ABDIAZIZ drain in place. No hepatosplenomegaly. NERVOUS SYSTEM: Sedated, tone is normal in all 4 extremities. EXTREMITIES: Left radial arterial line in place. 1+ bipedal edema - Labs CBC & Chem 7: 08/22/24 05:19 08/22/24 05:19 Labs: Abnormal Lab Results - Last 24 Hours (Table) 08/21/24 08/21/24 08/21/24 Range/Units 05:29 14:05 17:52 WBC 15.5 H (3.8-10.6) k/uL RBC 3.40 L (4.30-5.90) m/uL Hgb 8.2 L (13.0-17.5) gm/dL Hct 28.4 L (39.0-53.0) % MCH 24.2 L (25.0-35.0) pg MCHC 29.0 L (31.0-37.0) g/dL RDW 20.0 H (11.5-15.5) % Neutrophils # (Manual) 13.33 H (1.3-7.7) k/uL APTT (22.0-30.0) sec ABG pH (7.35-7.45) ABG pO2 (83-108) mmHg ABG HCO3 (21-25) mmol/L ABG Total CO2 (19-24) mmol/L Hemoglobin (13.0-17.5) gm/dL BUN (9-20) mg/dL Glucose (74-99) mg/dL POC Glucose (mg/dL) 177 H (70-110) mg/dL Calcium (8.4-10.2) mg/dL Crossmatch See Detail 08/21/24 08/22/24 08/22/24 Range/Units 20:02 00:49 04:24 WBC 17.1 H (3.8-10.6) k/uL RBC 3.61 L (4.30-5.90) m/uL Hgb 9.0 L (13.0-17.5) gm/dL Hct 30.5 L (39.0-53.0) % MCH 24.9 L (25.0-35.0) pg MCHC 29.6 L (31.0-37.0) g/dL RDW 19.3 H (11.5-15.5) % Neutrophils # (Manual) (1.3-7.7) k/uL APTT (22.0-30.0) sec ABG pH 7.48 H (7.35-7.45) ABG pO2 79 L (83-108) mmHg ABG HCO3 28 H (21-25) mmol/L ABG Total CO2 29 H (19-24) mmol/L Hemoglobin 8.8 L (13.0-17.5) gm/dL BUN (9-20) mg/dL Glucose (74-99) mg/dL POC Glucose (mg/dL) 278 H (70-110) mg/dL Calcium (8.4-10.2) mg/dL Crossmatch 08/22/24 08/22/24 08/22/24 Range/Units 05:19 05:19 05:19 WBC 13.1 H (3.8-10.6) k/uL RBC 3.73 L (4.30-5.90) m/uL Hgb 9.1 L (13.0-17.5) gm/dL Hct 31.6 L (39.0-53.0) % MCH 24.5 L (25.0-35.0) pg MCHC 29.0 L (31.0-37.0) g/dL RDW 19.2 H (11.5-15.5) % Neutrophils # (Manual) 10.30 H (1.3-7.7) k/uL APTT 44.7 H (22.0-30.0) sec ABG pH (7.35-7.45) ABG pO2 (83-108) mmHg ABG HCO3 (21-25) mmol/L ABG Total CO2 (19-24) mmol/L Hemoglobin (13.0-17.5) gm/dL BUN 44 H (9-20) mg/dL Glucose 237 H (74-99) mg/dL POC Glucose (mg/dL) (70-110) mg/dL Calcium 8.1 L (8.4-10.2) mg/dL Crossmatch 08/22/24 Range/Units 05:43 WBC (3.8-10.6) k/uL RBC (4.30-5.90) m/uL Hgb (13.0-17.5) gm/dL Hct (39.0-53.0) % MCH (25.0-35.0) pg MCHC (31.0-37.0) g/dL RDW (11.5-15.5) % Neutrophils # (Manual) (1.3-7.7) k/uL APTT (22.0-30.0) sec ABG pH (7.35-7.45) ABG pO2 (83-108) mmHg ABG HCO3 (21-25) mmol/L ABG Total CO2 (19-24) mmol/L Hemoglobin (13.0-17.5) gm/dL BUN (9-20) mg/dL Glucose (74-99) mg/dL POC Glucose (mg/dL) 249 H (70-110) mg/dL Calcium (8.4-10.2) mg/dL Crossmatch Assessment and Plan Assessment: Impression: Acute hypoxic respiratory failure secondary to acute surgical abdomen and abdominal sepsis with septic shock Acute pneumoperitoneum secondary to perforated gastric ulcer, status post exploratory laparotomy abdominal washout and modified Kiet patch postoperative day # 10 Acute abdominal sepsis and septic shock remains on antibiotics, remains on norepinephrine at 0.03 mcg/kg/min., Remains on antibiotics including Zosyn and Diflucan Hypotension, secondary to abdominal sepsis and septic shock still requiring norepinephrine Right-sided pleural effusion and bipedal edema patient is demonstrating third spacing most likely secondary to hypoalbuminemia Severe LV dysfunction with ejection fraction of 35% Acute blood loss anemia patient received so far 2 units of packed RBCs since admission Leukocytosis secondary to abdominal sepsis Acute kidney injury secondary to sepsis and septic shock Chronic atrial fibrillation, rate controlled History of hypertension History of prostate cancer Recommendation: Continue to monitor in the ICU Continue ventilatory support however the patient will have a trial of pressure support of 12 and CPAP and will hopefully lower down this pressure support further down depending on how well he tolerates pressure support. Continue antibiotics and antifungal for his abdominal sepsis Continue GI and DVT prophylaxis, Continue to monitor renal status and address accordingly and monitor electrolytes Continue Lasix Continue TPN at 80 cc/h/nutritional support Continue insulin and sliding scale coverage Continue hemodynamic today the patient is still on norepinephrine at 0.03 mcg/kg/min Continue to monitor all cultures, continue antibiotics empirically for abdominal sepsis Continue to monitor hemoglobin Daily x-rays and daily labs May eventually require right-sided thoracentesis Patient remains critically ill. Critical care time is 33 minutes Time with Patient: Greater than 30
[2024-08-22 14:04] LABS: Glucose,Whole Blood 292 mg/dL (70-110)
[2024-08-22] MEDS: FAT EMULSION 20% 250 ML in EMPTY BAG 1 BAG IV SCH (14:24)
[2024-08-22] MEDS: ACETAMINOPHEN IV (For NPO) 1,000 MG in EMPTY BAG 1 BAG IVPB SCH (14:25)
--- NOTE | 2024-08-22 14:30 | P.PN ---
Subjective Progress Note Date: 08/22/24 The patient is a 79-year-old male who is currently admitted for perforated gastric ulcer. Patient remains intubated in the ICU. Cardiology has been consulted for atrial fibrillation management. He is currently on a heparin drip, as well as as needed metoprolol. Heart rates remain reasonably well-controlled. Echocardiogram revealed EF at 35 to 40%. According to nursing staff there is difficulty weaning from the ventilator. Another attempt will be made today. From a cardiac standpoint he has been rate controlled with the use of IV medications. GENERAL: Well-appearing, well-nourished and in no acute distress. Currently sedated on ventilator NECK: Supple without JVD or thyromegaly. LUNGS: Breath sounds clear to auscultation bilaterally. Respiration equal and unlabored. No wheezes, rales or rhonchi. HEART: Irregular rate and rhythm without murmurs, rubs or gallops. S1 and S2 heard. EXTREMITIES: Normal range of motion, mild edema. No clubbing or cyanosis. Peripheral pulses intact and strong. TELEMETRY: Atrial fibrillation, rate controlled LABS: WBC 13.1, hemoglobin 9.1 hematocrit 31.6, platelet 303, sodium 137, potassium 3.9, BUN 44, creatinine 1.17, magnesium 2.1 IMPRESSION: Persistent atrial fibrillation Perforated gastric ulcer, status post exploratory laparotomy with modified Kiet patch repair Cardiomyopathy, EF 35 to 40% Pulmonary hypertension Hypoxic respiratory failure, currently ventilated Anemia, defer to primary team PLAN: Continue supportive treatment and wean from ventilator Continue heparin drip and transition to oral anticoagulation when able to take p.o. medications No further recommendations from the cardiac standpoint. Reconsult if necessary. I am dictating on behalf of Dr Rui Pham's history/physical and assessment/plan. Objective - Vital Signs Vital signs: Vital Signs Temp 97.9 F 08/22/24 12:00 Pulse 94 08/22/24 13:00 Resp 0 L 08/22/24 12:45 BP 107/60 08/22/24 13:00 Pulse Ox 95 08/22/24 13:00 FiO2 30 08/22/24 12:18 Intake & Output 08/21/24 08/22/24 08/22/24 18:59 06:59 18:59 Intake Total 2678.433 1642.907 250 Output Total 2305 1630 570 Balance 373.433 12.907 -320 Weight 111.5 kg 111.1 kg Intake: IV 1495 1290 250 .9NS KVO 255 210 70 ACETAMINOPHEN IV (For NPO 100 ) 1,000 mg In Empty Bag 1 bag @ 400 mls/hr IVPB Q6HR PRN Rx#:[id number] Mvi, Adult No.4 with Vit 1040 880 80 K 10 ml Trace (Conc-1Ml/ Dose) 1 ml Sodium Acetate 16 meq Potassium Acetate 14 meq Potassium Phosphate 21 mmol Magnesium Sulfate gm 0.75 gm Calcium Gluconate 1 gm In Amino Acids 5 %/ Dextrose 20 % 1,000 ml @ 75 mls/hr IV .[id number] [facility] Rx#:[id number] Piperacillin-Tazobactam 3 100 .375 gm In Sodium Chloride 0.9% 100 ml @ 25 mls/hr IVPB Q8HR [facility] Rx# :[id number] Potassium Chloride 10 meq 100 In Water For Injection 1 100ml.bag @ 100 mls/hr IVPB Q1H [facility] Rx#: [id number] Potassium Chloride 20 meq 200 In Water For Injection 1 100ml.bag @ 50 mls/hr IVPB Q2H [facility] Rx#: [id number] Intake, IV Titration 585.433 352.907 Amount ACETAMINOPHEN IV (For NPO 100 ) 1,000 mg In Empty Bag 1 bag @ 400 mls/hr IVPB Q6HR [facility] Rx#:[id number] Dexmedetomidine/0.9% NaCl 15.890 67.413 (Pmx) 400 mcg In Empty Bag 1 bag @ 0.2 MCG/KG/HR 5.575 mls/hr IV .[id number] [facility] Rx#:[id number] Fluconazole in NaCl,Iso- 100 Osm 200 mg In Saline 1 100ml.bag @ 100 mls/hr IVPB DAILY [facility] Rx#: [id number] Heparin Sod,Pork in 0.45% 245.991 250 NaCl 25,000 unit In 0.45 % NaCl 1 250ml.bag @ 6. 826 UNITS/KG/HR 10 mls/hr IV .Q24H [facility] Rx#: [id number] Norepinephrine 32 mg In 23.552 35.494 Sodium Chloride 0.9% 218 ml @ 0.03 MCG/KG/MIN 2.06 mls/hr IV .Q24H [facility] Rx#: [id number] Piperacillin-Tazobactam 3 100 .375 gm In Sodium Chloride 0.9% 100 ml @ 25 mls/hr IVPB Q8HR [facility] Rx# :[id number] Blood Product 598 Rc As-1 Unit 310 [id number] Rc Pheresis 2 As3 Unit 288 [id number] Output: Drainage 20 0 5 Right abdominal ABDIAZIZ drain 20 0 5 Urine 2285 1630 565 Other: Voiding Method Indwelling Catheter Indwelling Catheter Indwelling Catheter ABP, PAP, CO, CI - Last Documented Arterial Blood Pressure 126/54 - Labs CBC & Chem 7: 08/22/24 05:19 08/22/24 05:19 Labs: Abnormal Lab Results - Last 24 Hours (Table) 08/21/24 08/21/24 08/21/24 Range/Units 05:29 14:05 17:52 WBC 15.5 H (3.8-10.6) k/uL RBC 3.40 L (4.30-5.90) m/uL Hgb 8.2 L (13.0-17.5) gm/dL Hct 28.4 L (39.0-53.0) % MCH 24.2 L (25.0-35.0) pg MCHC 29.0 L (31.0-37.0) g/dL RDW 20.0 H (11.5-15.5) % Neutrophils # (Manual) 13.33 H (1.3-7.7) k/uL APTT (22.0-30.0) sec ABG pH (7.35-7.45) ABG pO2 (83-108) mmHg ABG HCO3 (21-25) mmol/L ABG Total CO2 (19-24) mmol/L Hemoglobin (13.0-17.5) gm/dL BUN (9-20) mg/dL Glucose (74-99) mg/dL POC Glucose (mg/dL) 177 H (70-110) mg/dL Calcium (8.4-10.2) mg/dL Crossmatch See Detail 08/21/24 08/22/24 08/22/24 Range/Units 20:02 00:49 04:24 WBC 17.1 H (3.8-10.6) k/uL RBC 3.61 L (4.30-5.90) m/uL Hgb 9.0 L (13.0-17.5) gm/dL Hct 30.5 L (39.0-53.0) % MCH 24.9 L (25.0-35.0) pg MCHC 29.6 L (31.0-37.0) g/dL RDW 19.3 H (11.5-15.5) % Neutrophils # (Manual) (1.3-7.7) k/uL APTT (22.0-30.0) sec ABG pH 7.48 H (7.35-7.45) ABG pO2 79 L (83-108) mmHg ABG HCO3 28 H (21-25) mmol/L ABG Total CO2 29 H (19-24) mmol/L Hemoglobin 8.8 L (13.0-17.5) gm/dL BUN (9-20) mg/dL Glucose (74-99) mg/dL POC Glucose (mg/dL) 278 H (70-110) mg/dL Calcium (8.4-10.2) mg/dL Crossmatch 08/22/24 08/22/24 08/22/24 Range/Units 05:19 05:19 05:19 WBC 13.1 H (3.8-10.6) k/uL RBC 3.73 L (4.30-5.90) m/uL Hgb 9.1 L (13.0-17.5) gm/dL Hct 31.6 L (39.0-53.0) % MCH 24.5 L (25.0-35.0) pg MCHC 29.0 L (31.0-37.0) g/dL RDW 19.2 H (11.5-15.5) % Neutrophils # (Manual) 10.30 H (1.3-7.7) k/uL APTT 44.7 H (22.0-30.0) sec ABG pH (7.35-7.45) ABG pO2 (83-108) mmHg ABG HCO3 (21-25) mmol/L ABG Total CO2 (19-24) mmol/L Hemoglobin (13.0-17.5) gm/dL BUN 44 H (9-20) mg/dL Glucose 237 H (74-99) mg/dL POC Glucose (mg/dL) (70-110) mg/dL Calcium 8.1 L (8.4-10.2) mg/dL Crossmatch 08/22/24 08/22/24 Range/Units 05:43 14:03 WBC (3.8-10.6) k/uL RBC (4.30-5.90) m/uL Hgb (13.0-17.5) gm/dL Hct (39.0-53.0) % MCH (25.0-35.0) pg MCHC (31.0-37.0) g/dL RDW (11.5-15.5) % Neutrophils # (Manual) (1.3-7.7) k/uL APTT (22.0-30.0) sec ABG pH (7.35-7.45) ABG pO2 (83-108) mmHg ABG HCO3 (21-25) mmol/L ABG Total CO2 (19-24) mmol/L Hemoglobin (13.0-17.5) gm/dL BUN (9-20) mg/dL Glucose (74-99) mg/dL POC Glucose (mg/dL) 249 H 292 H (70-110) mg/dL Calcium (8.4-10.2) mg/dL Crossmatch
--- NOTE | 2024-08-22 16:42 | P.PN ---
Subjective Patient is seen for follow-up for acute kidney injury. Maintained on IV Lasix Serum creatinine at 1.17 mg/dL Patient remains on the vent. FiO2 at 30%. He is on CPAP currently. Good urine output noted. Objective - Vital Signs Vital signs: Vital Signs Temp 97.9 F 08/22/24 12:00 Pulse 108 H 08/22/24 16:05 Resp 31 H 08/22/24 15:00 BP 117/81 08/22/24 15:00 Pulse Ox 94 L 08/22/24 15:00 FiO2 30 08/22/24 15:54 Intake & Output 08/21/24 08/22/24 08/22/24 18:59 06:59 18:59 Intake Total 2678.433 1642.907 270 Output Total 2305 1630 2395 Balance 373.433 12.907 -2125 Weight 111.5 kg 111.1 kg Intake: IV 1495 1290 270 .9NS KVO 255 210 90 ACETAMINOPHEN IV (For NPO 100 ) 1,000 mg In Empty Bag 1 bag @ 400 mls/hr IVPB Q6HR PRN Rx#:[id number] Mvi, Adult No.4 with Vit 1040 880 80 K 10 ml Trace (Conc-1Ml/ Dose) 1 ml Sodium Acetate 16 meq Potassium Acetate 14 meq Potassium Phosphate 21 mmol Magnesium Sulfate gm 0.75 gm Calcium Gluconate 1 gm In Amino Acids 5 %/ Dextrose 20 % 1,000 ml @ 75 mls/hr IV .[id number] [facility] Rx#:[id number] Piperacillin-Tazobactam 3 100 .375 gm In Sodium Chloride 0.9% 100 ml @ 25 mls/hr IVPB Q8HR [facility] Rx# :[id number] Potassium Chloride 10 meq 100 In Water For Injection 1 100ml.bag @ 100 mls/hr IVPB Q1H [facility] Rx#: [id number] Potassium Chloride 20 meq 200 In Water For Injection 1 100ml.bag @ 50 mls/hr IVPB Q2H [facility] Rx#: [id number] Intake, IV Titration 585.433 352.907 Amount ACETAMINOPHEN IV (For NPO 100 ) 1,000 mg In Empty Bag 1 bag @ 400 mls/hr IVPB Q6HR [facility] Rx#:[id number] Dexmedetomidine/0.9% NaCl 15.890 67.413 (Pmx) 400 mcg In Empty Bag 1 bag @ 0.2 MCG/KG/HR 5.575 mls/hr IV .[id number] [facility] Rx#:[id number] Fluconazole in NaCl,Iso- 100 Osm 200 mg In Saline 1 100ml.bag @ 100 mls/hr IVPB DAILY [facility] Rx#: [id number] Heparin Sod,Pork in 0.45% 245.991 250 NaCl 25,000 unit In 0.45 % NaCl 1 250ml.bag @ 6. 826 UNITS/KG/HR 10 mls/hr IV .Q24H [facility] Rx#: [id number] Norepinephrine 32 mg In 23.552 35.494 Sodium Chloride 0.9% 218 ml @ 0.03 MCG/KG/MIN 2.06 mls/hr IV .Q24H [facility] Rx#: [id number] Piperacillin-Tazobactam 3 100 .375 gm In Sodium Chloride 0.9% 100 ml @ 25 mls/hr IVPB Q8HR [facility] Rx# :[id number] Blood Product 598 Rc As-1 Unit 310 [id number] Rc Pheresis 2 As3 Unit 288 [id number] Output: Drainage 20 0 5 Right abdominal ABDIAZIZ drain 20 0 5 Urine 2285 1630 2390 Other: Voiding Method Indwelling Catheter Indwelling Catheter Indwelling Catheter ABP, PAP, CO, CI - Last Documented Arterial Blood Pressure 126/54 - Exam Patient is sedated and on the vent. Examination of the heart S1 and S2 Examination of the lungs bilateral breath sounds are heard Abdomen is dressed Examination lower extremity shows edema 1+ bilateral - Labs CBC & Chem 7: 08/22/24 05:19 08/22/24 05:19 Labs: Abnormal Lab Results - Last 24 Hours (Table) 08/21/24 08/21/24 08/21/24 Range/Units 05:29 17:52 20:02 WBC 17.1 H (3.8-10.6) k/uL RBC 3.61 L (4.30-5.90) m/uL Hgb 9.0 L (13.0-17.5) gm/dL Hct 30.5 L (39.0-53.0) % MCH 24.9 L (25.0-35.0) pg MCHC 29.6 L (31.0-37.0) g/dL RDW 19.3 H (11.5-15.5) % Neutrophils # (Manual) (1.3-7.7) k/uL APTT (22.0-30.0) sec ABG pH (7.35-7.45) ABG pO2 (83-108) mmHg ABG HCO3 (21-25) mmol/L ABG Total CO2 (19-24) mmol/L Hemoglobin (13.0-17.5) gm/dL BUN (9-20) mg/dL Glucose (74-99) mg/dL POC Glucose (mg/dL) 177 H (70-110) mg/dL Calcium (8.4-10.2) mg/dL Crossmatch See Detail 08/22/24 08/22/24 08/22/24 Range/Units 00:49 04:24 05:19 WBC 13.1 H (3.8-10.6) k/uL RBC 3.73 L (4.30-5.90) m/uL Hgb 9.1 L (13.0-17.5) gm/dL Hct 31.6 L (39.0-53.0) % MCH 24.5 L (25.0-35.0) pg MCHC 29.0 L (31.0-37.0) g/dL RDW 19.2 H (11.5-15.5) % Neutrophils # (Manual) 10.30 H (1.3-7.7) k/uL APTT (22.0-30.0) sec ABG pH 7.48 H (7.35-7.45) ABG pO2 79 L (83-108) mmHg ABG HCO3 28 H (21-25) mmol/L ABG Total CO2 29 H (19-24) mmol/L Hemoglobin 8.8 L (13.0-17.5) gm/dL BUN (9-20) mg/dL Glucose (74-99) mg/dL POC Glucose (mg/dL) 278 H (70-110) mg/dL Calcium (8.4-10.2) mg/dL Crossmatch 08/22/24 08/22/24 08/22/24 Range/Units 05:19 05:19 05:43 WBC (3.8-10.6) k/uL RBC (4.30-5.90) m/uL Hgb (13.0-17.5) gm/dL Hct (39.0-53.0) % MCH (25.0-35.0) pg MCHC (31.0-37.0) g/dL RDW (11.5-15.5) % Neutrophils # (Manual) (1.3-7.7) k/uL APTT 44.7 H (22.0-30.0) sec ABG pH (7.35-7.45) ABG pO2 (83-108) mmHg ABG HCO3 (21-25) mmol/L ABG Total CO2 (19-24) mmol/L Hemoglobin (13.0-17.5) gm/dL BUN 44 H (9-20) mg/dL Glucose 237 H (74-99) mg/dL POC Glucose (mg/dL) 249 H (70-110) mg/dL Calcium 8.1 L (8.4-10.2) mg/dL Crossmatch 08/22/24 Range/Units 14:03 WBC (3.8-10.6) k/uL RBC (4.30-5.90) m/uL Hgb (13.0-17.5) gm/dL Hct (39.0-53.0) % MCH (25.0-35.0) pg MCHC (31.0-37.0) g/dL RDW (11.5-15.5) % Neutrophils # (Manual) (1.3-7.7) k/uL APTT (22.0-30.0) sec ABG pH (7.35-7.45) ABG pO2 (83-108) mmHg ABG HCO3 (21-25) mmol/L ABG Total CO2 (19-24) mmol/L Hemoglobin (13.0-17.5) gm/dL BUN (9-20) mg/dL Glucose (74-99) mg/dL POC Glucose (mg/dL) 292 H (70-110) mg/dL Calcium (8.4-10.2) mg/dL Crossmatch Assessment and Plan Assessment: 1. Acute kidney injury secondary to ATN. Creatinine 1.5 in January 2024 and 2.5 this admission. Renal function improving. Creatinine 1.17. Nonoliguric. No hydronephrosis noted on CT. 2. Perforated gastric ulcer with pneumoperitoneum status post ex lap with closure of ulcer August 13, 2024. 3. Septic shock on vasopressor support. 4. Metabolic acidosis secondary to acute kidney injury and lactic acidosis. Im proved. 5. Diabetes mellitus. 6. A-fib with RVR. On oral meds. Cardiology following. 7. Volume overload. Improving with diuresis. Plan: Continue with IV Lasix Maintained on TPN Monitor electrolytes
[2024-08-22 17:21] LABS: Glucose,Whole Blood 248 mg/dL (70-110)
[2024-08-22] MEDS: ANIDULAFUNGIN 200 MG in SODIUM CHLORIDE 0.9% 200 ML IVPB ONE (20:18)
[2024-08-22] MEDS: [UNRECOGNIZED DRUG - REMARK] IV SCH (21:23)
[2024-08-23 01:02] LABS: Glucose,Whole Blood 292 mg/dL (70-110)
[2024-08-23 05:29] LABS: ABG Base Excess 2.6 mmol/L; ABG HCO3 25 mmol/L (21-25); ABG Oxygen Saturation 96.9 % (94-97); ABG PCO2 32 mmHg (35-45); ABG PH 7.51 (7.35-7.45); ABG PO2 80 mmHg (83-108); ABG TCO2 26 mmol/L (19-24); Allen Test Performed? Yes
[2024-08-23 05:37] LABS: Glucose,Whole Blood 302 mg/dL (70-110)
[2024-08-23 05:43] LABS: Anisocytosis Slight; HCT 32.8 % (39.0-53.0); HGB 9.8 gm/dL (13.0-17.5); Hypochromasia Marked; MCH 25.2 pg (25.0-35.0); MCHC 29.9 g/dL (31.0-37.0); MCV 84.3 fL (80.0-100.0); Microcytosis Slight; Platelet Count 317 k/uL (150-450); Poikilocytosis Moderate; RBC 3.89 m/uL (4.30-5.90); RDW 19.5 % (11.5-15.5); WBC 14.3 k/uL (3.8-10.6)
[2024-08-23 05:59] LABS: African American GFR (CKD) 60 (>60 ml/min/1.73 sqM); Anion Gap 7 mmol/L; Blood Urea Nitrogen 45 mg/dL (9-20); Carbon Dioxide 24 mmol/L (22-30); Chloride 104 mmol/L (98-107); Glucose 270 mg/dL (74-99); Non-African American GFR(CKD) 52 (>60 ml/min/1.73 sqM); Sodium 135 mmol/L (137-145)
--- NOTE | 2024-08-23 06:34 | P.PN ---
Subjective Progress Note Date: 08/22/24 This is a 79-year-old male who was monitored in the intensive care unit. He is postoperative day #2 repair of perforated gastric ulcer with Kiet patch. He remains sedated and intubated on the mechanical ventilator. Patient has been febrile with a Tmax of 101.7 axillary in the last 24 hours. He was noted to be in atrial fibrillation with RVR and has been started on IV Cardizem. Eliquis remains on hold postsurgically. Patient continues on multiple antibiotic therapy including IV fluconazole IV Zosyn with infectious disease following closely. He is currently sedated with propofol he is requiring Levophed and vasopressin support. Blood culture remains negative so far. Labs reveal a white blood cell complement 3.7, hemoglobin 9.5, sodium 139, potassium 4.1, BUN of 31 creatinine 3.52 calcium of 6.8 chest x-ray today reveals continued CHF exacerbation and fluid overload state with no significant for 1 day earlier. Patient does have hypotensive bowel sounds. 08/15/2024 Patient is evaluated in the ICU he remains on the mechanical ventilator with PEEP of 5 and FiO2 of 30%. He is postoperative day #3 repair of perforated gastric ulcer with kiet patch. Currently sedated with propofol. Chest xray findings suggest continued CHF exacerbation fluid over load state. worsening left basilar opacity could reflect acute infiltrate and or atelectasis. Correlate clinically. White blood cell count 27.7, hgb 8.5, sodium 141, potassium 3.9, BUN 58, creatinine 2.10. Magnesium 1.8. 08/16/2024 Patient is evaluated today in the intensive care unit he is postoperative day #4 to get with Kiet patch. Patient remains sedated with propofol. He is currently intubated and on mechanical ventilator with a PEEP of 5 and FiO2 of 30%. Chest x-ray today reveals worsening CHF. His white blood cell count today is 20.9, hemoglobin 8, BUN of 49 creatinine of 1.87. Patient remains on room. He was having runs of V. tach and was taken off IV Cardizem started on an oral metoprolol on an outpatient basis. his heart rate is controlled. He continues on IV Zosyn. He remains on IV fluconazole. Blood sugars are elevated after the start of TPN. He was started on a small dose of Lantus and we will continue to monitor and make adjustments as needed. 08/17/2024 Patient is evaluated today in the ICU. He remains sedated and intubated on the mechanical ventilator. PEEP of 5 and FiO2 of 40%. Patient currently undergoing sedation holiday and has not been responsive. Patient received IV lasix x 1 and has since been started on IV lasix 40 mg [id number]. Patient remains on IV heparin. Continues on IV metoprolol and no further reports of ectopi noted. White blood cell count 18.0, hgb 7.5, BUN 39, creatinine 1.64. Blood glucose remains elevated in the 200s. Chest xray today reveals continued CHF. 08/18/2024 Patient is evaluated in follow-up in the intensive care unit. He remains sedated and intubated on mechanical ventilator. Patient is a PEEP of 5 and FiO2 of 40%. Labs today reveals white blood cell count 18.4, hgb 7.4, BUN 38, creatinine 1.45. Blood glucose in the 200s. Patient remains on IV fluconazole and IV zosyn. Remains on IV heparin. Patient on small dose of levo. Continues on TPN. Patient had low grade fever 100.1 overnight. 08/19/2024 Patient is eval seen in follow-up in the intensive care unit. He remains sedated and intubated on mechanical ventilator. He is any sedation held today and is more awake alert with spontaneous eye opening and tracking. His daughter is at the bedside. Ventilator settings were adjusted and he continues on a PEEP of 5 with an FiO2 of 30%. He remains on IV fluconazole and IV Zosyn. Chest x- ray today reveals stable findings suggestive of CHF overload state. He continues on IV Lasix which was increased to 40 mg every 8 hours. He continues on IV heparin. He is on a small dose of Levophed. 08/20/2024 Patient is evaluated in follow-up in the intensive care unit. Patient remains a sedated intubated on the mechanical ventilator his FiO2 remains at 30%. He is more awake alert and oriented. Family at the bedside. Patient continues on a course of IV fluconazole and IV Zosyn. ID following closely. He remains on IV heparin. Patient continues with TPN. He remains on IV Lasix 40 mg every 8 hours. Chest x-ray today reveals CHF. Labs today white blood cell count 14.8, hemoglobin 7.1, BUN of 42 creatinine of 1.31 sodium of 143. 08/21/2024 Patient is seen in follow-up remains in the ICU on mechanical ventilation. Per nursing staff attempting to wean and extubate although unsuccessful and patient is currently maintained on mechanical ventilation FiO2 is 50% with a PEEP of 5. Patient is to continue on IV Lasix and would recommend continuing as there is significant overload noted. Patient only on fluconazole and will repeat blood cultures also reinitiate Zosyn as patient is having elevated white count and low-grade temps. 08/22/2024 Patient seen in the ICU remains on mechanical ventilation with an FiO2 of 50% and PEEP is 5. White count is trending down at 14 today and patient is afebrile. Patient is continued on Zosyn and also fluconazole although will transition to Eraxis. Patient continues on Lasix continues with significant swelling although somewhat improved. Family at bedside with questions and concerns that were answered. Will attempt sedation trials to monitor mentation with no plans of extubation at this time. Unable to complete a review of systems as patient is currently intubated and sedated in the intensive care unit PHYSICAL EXAMINATION: GENERAL: The patient is sedated, remains on mechanical ventilation with an FiO2 is 50%. Well developed, ill-appearing, elderly appearing, obese. Pale HEENT: Pupils are round and equally reacting to light. EOMI. No scleral icterus. No conjunctival pallor. Normocephalic, atraumatic. No pharyngeal erythema. No thyromegaly. CARDIOVASCULAR: S1 and S2 muffled PULMONARY: Diminished breath sounds bilaterally with some faint crackles noted ABDOMEN: Soft, obese, nontender, nondistended, Hypoactive bowel sounds. No palpable organomegaly. Mid line incision intact no surrounding erythema or drainage MUSCULOSKELETAL: No joint swelling or deformity. EXTREMITIES: No cyanosis, clubbing, or pedal edema. Upper and lower generalized edema, 1+ pitting NEUROLOGICAL: Gross neurological examination did not reveal any focal deficits. Diffusely weak SKIN: No rashes. Pale Assessment: Perforated gastric ulcer pneumoperitoneum postoperative day #8 surgical repair with Kiet patch Septic shock secondary to above Acute kidney injury due to acute tubular necrosis from infection Atrial fibrillation with rapid ventricular rate, currently rate controlled Acute CHF exacerbation, systolic dysfunction EF 35-40%. History of atrial fibrillation, maintained on oral anticoagulant outpatient Diabetes mellitus type 2 History of stage III pancreatic cancer History hypertension Hyperlipidemia Obesity with a BMI of 35.1 VTE prophylaxis as per primary GI prophylaxis continues on IV heparin Full code Plan: Patient continues in the ICU with multiple consultations following maintained on mechanical ventilation with an FiO2 of 50% and PEEP is 5. Cardiology following making adjustments to medications and is maintained on low- dose pressor support and weaning as tolerated White count is trending down and will follow-up on repeat labs, continue Zosyn and also added Eraxis as patient was on fluconazole Continue IV Lasix and monitor kidney functions closely as patient is significantly edematous Recommend aspiration precautions with head of the bed elevated 30 to 45 degrees at all times Continue TPN with pharmacy and dietary to dose Replace electrolytes per protocol Continue monitoring Accu-Cheks before meals and at bedtime and will adjust ins ulins as blood sugars have been elevated. Patient is also on long-acting twice daily. We will continue to follow with general surgery during hospitalization. Thank you for this consultation. Overall prognosis is guarded at this time The impression and plan of care has been dictated by Chinyere Pruitt, Nurse Practitioner as directed. Dr. Miky MD I have performed a history and physical examination and medical decision making of this patient, discussed the same with the dictator, and agree with the dictators assessment and plan as written, documented as a scribe. Based on total visit time, I have performed more than 50% of this visit. Objective - Vital Signs Vital signs: Vital Signs Temp 100.5 F H 08/23/24 04:00 Pulse 76 08/23/24 06:00 Resp 14 08/23/24 06:00 BP 111/57 08/23/24 06:00 Pulse Ox 95 08/23/24 06:00 FiO2 30 08/23/24 05:17 Intake & Output 08/22/24 08/22/24 08/23/24 06:59 18:59 06:59 Intake Total 1642.907 124.255 8151 Output Total 1630 2495 2055 Balance 12.907 -4746.803 -866 Weight 111.1 kg 109.8 kg Intake: IV 3942 656 4651 .9NS KVO 210 120 120 ACETAMINOPHEN IV (For NPO 100 ) 1,000 mg In Empty Bag 1 bag @ 400 mls/hr IVPB Q6HR [facility] Rx#:[id number] Fat Emulsion 20% 250 ml 189 In Empty Bag 1 bag @ 21 mls/hr IV Q72H [facility] Rx#: [id number] Mvi, Adult No.4 with Vit 880 80 880 K 10 ml Trace (Conc-1Ml/ Dose) 1 ml Sodium Acetate 16 meq Potassium Acetate 14 meq Potassium Phosphate 21 mmol Magnesium Sulfate gm 0.75 gm Calcium Gluconate 1 gm In Amino Acids 5 %/ Dextrose 20 % 1,000 ml @ 75 mls/hr IV .[id number] [facility] Rx#:[id number] Piperacillin-Tazobactam 3 100 .375 gm In Sodium Chloride 0.9% 100 ml @ 25 mls/hr IVPB Q8HR [facility] Rx# :[id number] Potassium Chloride 10 meq 100 In Water For Injection 1 100ml.bag @ 100 mls/hr IVPB Q1H [facility] Rx#: [id number] Intake, IV Titration 352.907 307.197 Amount Dexmedetomidine/0.9% NaCl 67.413 94.797 (Pmx) 400 mcg In Empty Bag 1 bag @ 0.2 MCG/KG/HR 5.575 mls/hr IV .[id number] [facility] Rx#:[id number] Heparin Sod,Pork in 0.45% 250 NaCl 25,000 unit In 0.45 % NaCl 1 250ml.bag @ 6. 826 UNITS/KG/HR 10 mls/hr IV .Q24H [facility] Rx#: [id number] Norepinephrine 32 mg In 35.494 212.4 Sodium Chloride 0.9% 218 ml @ 0.03 MCG/KG/MIN 2.06 mls/hr IV .Q24H [facility] Rx#: [id number] Output: Drainage 0 5 Right abdominal ABDIAZIZ drain 0 5 Urine 1630 2490 2055 Other: Voiding Method Indwelling Catheter Indwelling Catheter Indwelling Catheter ABP, PAP, CO, CI - Last Documented Arterial Blood Pressure 126/54 - Labs CBC & Chem 7: 08/23/24 05:30 08/22/24 05:19 Labs: Abnormal Lab Results - Last 24 Hours (Table) 08/22/24 08/22/24 08/22/24 Range/Units 05:19 05:19 05:19 WBC 13.1 H (3.8-10.6) k/uL RBC 3.73 L (4.30-5.90) m/uL Hgb 9.1 L (13.0-17.5) gm/dL Hct 31.6 L (39.0-53.0) % MCH 24.5 L (25.0-35.0) pg MCHC 29.0 L (31.0-37.0) g/dL RDW 19.2 H (11.5-15.5) % Neutrophils # (Manual) 10.30 H (1.3-7.7) k/uL APTT 44.7 H (22.0-30.0) sec ABG pH (7.35-7.45) ABG pCO2 (35-45) mmHg ABG pO2 (83-108) mmHg ABG Total CO2 (19-24) mmol/L Hemoglobin (13.0-17.5) gm/dL BUN 44 H (9-20) mg/dL Glucose 237 H (74-99) mg/dL POC Glucose (mg/dL) (70-110) mg/dL Calcium 8.1 L (8.4-10.2) mg/dL 08/22/24 08/22/24 08/23/24 Range/Units 14:03 17:20 01:00 WBC (3.8-10.6) k/uL RBC (4.30-5.90) m/uL Hgb (13.0-17.5) gm/dL Hct (39.0-53.0) % MCH (25.0-35.0) pg MCHC (31.0-37.0) g/dL RDW (11.5-15.5) % Neutrophils # (Manual) (1.3-7.7) k/uL APTT (22.0-30.0) sec ABG pH (7.35-7.45) ABG pCO2 (35-45) mmHg ABG pO2 (83-108) mmHg ABG Total CO2 (19-24) mmol/L Hemoglobin (13.0-17.5) gm/dL BUN (9-20) mg/dL Glucose (74-99) mg/dL POC Glucose (mg/dL) 292 H 248 H 292 H (70-110) mg/dL Calcium (8.4-10.2) mg/dL 08/23/24 08/23/24 08/23/24 Range/Units 05:20 05:30 05:36 WBC 14.3 H (3.8-10.6) k/uL RBC 3.89 L (4.30-5.90) m/uL Hgb 9.8 L (13.0-17.5) gm/dL Hct 32.8 L (39.0-53.0) % MCH (25.0-35.0) pg MCHC 29.9 L (31.0-37.0) g/dL RDW 19.5 H (11.5-15.5) % Neutrophils # (Manual) (1.3-7.7) k/uL APTT (22.0-30.0) sec ABG pH 7.51 H (7.35-7.45) ABG pCO2 32 L (35-45) mmHg ABG pO2 80 L (83-108) mmHg ABG Total CO2 26 H (19-24) mmol/L Hemoglobin 9.5 L (13.0-17.5) gm/dL BUN (9-20) mg/dL Glucose (74-99) mg/dL POC Glucose (mg/dL) 302 H (70-110) mg/dL Calcium (8.4-10.2) mg/dL Microbiology - Last 24 Hours (Table) 08/21/24 14:35 Blood Culture - Preliminary Blood
[2024-08-23 06:40] LABS: Phosphorus 3.8 mg/dL (2.5-4.5); Potassium 3.9 mmol/L (3.5-5.1)
[2024-08-23] MEDS: INSULIN GLARGINE (LANTUS) 100 UNIT/ML SYR SQ ONE (07:00)
[2024-08-23] MEDS ORDERED: INSULIN GLARGINE (LANTUS) 100 UNIT/ML SYR SQ SCH (07:00)
--- NOTE | 2024-08-23 07:43 | XR ---
EXAMINATION TYPE: XR chest 1V portable DATE OF EXAM: 08/23/2024 5:27 AM COMPARISON: Chest radiograph from one day prior. CLINICAL INDICATION: Male, 79 years old with history of Mechanical ventilation; [facility] TECHNIQUE: XR chest 1V portable Frontal view of the chest. FINDINGS: Rotated exam. Lungs/Pleura: Blunting of the right costophrenic angle. There is no evidence of left pleural effusio n, focal consolidation, or pneumothorax Pulmonary vascularity: Unremarkable. Heart/mediastinum: Cardiomediastinal silhouette is unremarkable. Musculoskeletal: No acute osseous pathology. There is lower spine fixation hardware is present. Other findings: None Lines/Tubes: Endotracheal tube with distal tip 4.6 cm above the shakira. Nasogastric tube with its distal tip and side-port projecting under the diaphragm. Right internal jugular central venous catheter with distal tip at the cavoatrial junction. IMPRESSION: Rotated exam. 1. Right pleural effusion. 2. Stable support line and tubes. [facility], , 08/23/2024 7:40 AM
[2024-08-23] MEDS: POTASSIUM CHLORIDE 10 MEQ in WATER FOR INJECTION 1 100ML.BAG IVPB SCH (08:04)
--- NOTE | 2024-08-23 10:42 | P.PN ---
Subjective Patient is seen for follow-up for acute kidney injury. Maintained on IV Lasix Serum creatinine at 1.3 mg/dL Patient remains on the vent. FiO2 at 30%. He is on CPAP currently. Good urine output noted. Objective - Vital Signs Vital signs: Vital Signs Temp 100.5 F H 08/23/24 04:00 Pulse 71 08/23/24 08:33 Resp 23 08/23/24 08:33 BP 113/72 08/23/24 07:00 Pulse Ox 98 08/23/24 07:00 FiO2 30 08/23/24 10:17 Intake & Output 08/22/24 08/23/24 08/23/24 18:59 06:59 18:59 Intake Total 698.324 4509 1.820 Output Total 2495 2165 Balance -1887.803 -636 1.820 Weight 109.8 kg Intake: IV 300 1279 .9NS KVO 120 130 Fat Emulsion 20% 250 ml 189 In Empty Bag 1 bag @ 21 mls/hr IV Q72H [facility] Rx#: [id number] Mvi, Adult No.4 with Vit 80 960 K 10 ml Trace (Conc-1Ml/ Dose) 1 ml Sodium Acetate 16 meq Potassium Acetate 14 meq Potassium Phosphate 21 mmol Magnesium Sulfate gm 0.75 gm Calcium Gluconate 1 gm In Amino Acids 5 %/ Dextrose 20 % 1,000 ml @ 75 mls/hr IV .[id number] [facility] Rx#:[id number] Potassium Chloride 10 meq 100 In Water For Injection 1 100ml.bag @ 100 mls/hr IVPB Q1H [facility] Rx#: [id number] Intake, IV Titration 307.197 250 1.820 Amount Dexmedetomidine/0.9% NaCl 94.797 (Pmx) 400 mcg In Empty Bag 1 bag @ 0.2 MCG/KG/HR 5.575 mls/hr IV .[id number] [facility] Rx#:[id number] Heparin Sod,Pork in 0.45% 250 NaCl 25,000 unit In 0.45 % NaCl 1 250ml.bag @ 6. 826 UNITS/KG/HR 10 mls/hr IV .Q24H [facility] Rx#: [id number] Norepinephrine 32 mg In 212.4 1.820 Sodium Chloride 0.9% 218 ml @ 0.03 MCG/KG/MIN 2.06 mls/hr IV .Q24H [facility] Rx#: [id number] Output: Drainage 5 10 Right abdominal ABDIAZIZ drain 5 10 Urine 2490 2155 Other: Voiding Method Indwelling Catheter Indwelling Catheter ABP, PAP, CO, CI - Last Documented Arterial Blood Pressure 126/54 - Exam Patient is sedated and on the vent. Examination of the heart S1 and S2 Examination of the lungs bilateral breath sounds are heard Abdomen is dressed Examination lower extremity shows edema 1+ bilateral - Labs CBC & Chem 7: 08/23/24 05:30 08/23/24 05:30 Labs: Abnormal Lab Results - Last 24 Hours (Table) 08/22/24 08/22/24 08/23/24 Range/Units 14:03 17:20 01:00 WBC (3.8-10.6) k/uL RBC (4.30-5.90) m/uL Hgb (13.0-17.5) gm/dL Hct (39.0-53.0) % MCHC (31.0-37.0) g/dL RDW (11.5-15.5) % APTT (22.0-30.0) sec ABG pH (7.35-7.45) ABG pCO2 (35-45) mmHg ABG pO2 (83-108) mmHg ABG Total CO2 (19-24) mmol/L Hemoglobin (13.0-17.5) gm/dL Sodium (137-145) mmol/L BUN (9-20) mg/dL Creatinine (0.66-1.25) mg/dL Glucose (74-99) mg/dL POC Glucose (mg/dL) 292 H 248 H 292 H (70-110) mg/dL Calcium (8.4-10.2) mg/dL 08/23/24 08/23/24 08/23/24 Range/Units 05:20 05:30 05:30 WBC 14.3 H (3.8-10.6) k/uL RBC 3.89 L (4.30-5.90) m/uL Hgb 9.8 L (13.0-17.5) gm/dL Hct 32.8 L (39.0-53.0) % MCHC 29.9 L (31.0-37.0) g/dL RDW 19.5 H (11.5-15.5) % APTT (22.0-30.0) sec ABG pH 7.51 H (7.35-7.45) ABG pCO2 32 L (35-45) mmHg ABG pO2 80 L (83-108) mmHg ABG Total CO2 26 H (19-24) mmol/L Hemoglobin 9.5 L (13.0-17.5) gm/dL Sodium 135 L (137-145) mmol/L BUN 45 H (9-20) mg/dL Creatinine 1.32 H (0.66-1.25) mg/dL Glucose 270 H (74-99) mg/dL POC Glucose (mg/dL) (70-110) mg/dL Calcium 8.0 L (8.4-10.2) mg/dL 08/23/24 08/23/24 Range/Units 05:30 05:36 WBC (3.8-10.6) k/uL RBC (4.30-5.90) m/uL Hgb (13.0-17.5) gm/dL Hct (39.0-53.0) % MCHC (31.0-37.0) g/dL RDW (11.5-15.5) % APTT 52.8 H (22.0-30.0) sec ABG pH (7.35-7.45) ABG pCO2 (35-45) mmHg ABG pO2 (83-108) mmHg ABG Total CO2 (19-24) mmol/L Hemoglobin (13.0-17.5) gm/dL Sodium (137-145) mmol/L BUN (9-20) mg/dL Creatinine (0.66-1.25) mg/dL Glucose (74-99) mg/dL POC Glucose (mg/dL) 302 H (70-110) mg/dL Calcium (8.4-10.2) mg/dL Microbiology - Last 24 Hours (Table) 08/21/24 14:35 Blood Culture - Preliminary Blood Assessment and Plan Assessment: 1. Acute kidney injury secondary to ATN. Creatinine 1.5 in January 2024 and 2.5 this admission. Renal function improving. Currently being diuresed. Creatinine 1.3. Nonoliguric. No hydronephrosis noted on CT. 2. Perforated gastric ulcer with pneumoperitoneum status post ex lap with closure of ulcer August 13, 2024. 3. Septic shock on vasopressor support. 4. Metabolic acidosis secondary to acute kidney injury and lactic acidosis. Improved. 5. Diabetes mellitus. 6. A-fib with RVR. On oral meds. Cardiology following. 7. Volume overload. Improving with diuresis. Plan: Continue with IV Lasix, decrease dose in a.m. if serum creatinine is higher Maintained on TPN Monitor electrolytes
[2024-08-23 12:45] LABS: Glucose,Whole Blood 198 mg/dL (70-110)
[2024-08-23 13:03] LABS: ABG Base Excess 2.9 mmol/L; ABG HCO3 27 mmol/L (21-25); ABG Oxygen Saturation 94.1 % (94-97); ABG PCO2 37 mmHg (35-45); ABG PH 7.47 (7.35-7.45); ABG PO2 68 mmHg (83-108); ABG TCO2 28 mmol/L (19-24); Allen Test Performed? Yes
[2024-08-23] MEDS: ACETAMINOPHEN IV (For NPO) 1,000 MG in EMPTY BAG 1 BAG IVPB SCH ×2 (13:28→20:05)
--- NOTE | 2024-08-23 13:30 | P.PN ---
Subjective Progress Note Date: 08/23/24 SURGICAL PROGRESS NOTE CHIEF COMPLAINT: Perforated gastric ulcer HISTORY OF PRESENT ILLNESS: Patient is postop day #10 status post exploratory laparotomy and modified Kiet patch for perforated gastric ulcer. Patient remains in the ICU and on mechanical ventilation. Patient having fevers as high as 102.1 during the night. And a fever of 101.2 this morning. White count is up from 13-14. He is on a small amount of Levophed. Chest x-ray reports right pleural effusion. ABDIAZIZ drain 10 mL serosanguineous output PHYSICAL EXAM: VITAL SIGNS: Reviewed. GENERAL: no acute distress. ABDOMEN: Soft. Nondistended. Incisional dressing dry and intact. Couple areas of shadowing noted on dressing. ABDIAZIZ drain serosanguineous output NEUROLOGIC: Intubated ASSESSMENT: 1. Perforated gastric ulcer status post exploratory laparotomy and modified Kiet patch 2. Hypokalemia improved 3. A-fib on IV heparin PLAN: -Recommend upper GI after patient is extubated -Continue TPN for nutrition support -Continue ICU management -Continue supportive care -Continue NG tube to low intermittent suction -Keep n.p.o. -Continue antibiotics -Continue to monitor ABDIAZIZ drain -Continue IV Protonix -Continue to monitor hemoglobin -Continue IV Tylenol for pain management and fevers Physician Card Game Operator note has been reviewed by physician. Signing provider agrees with the documented findings, assessment, and plan of care. Attestation Patient seen and examined at bedside with ICU nurse. Postoperative status post exploratory laparotomy and modified Kiet patch repair. Continues to require low-dose Levophed. Leukocytosis still present and patient did have febrile episodes overnight. ICU to manage. If any concern for intra-abdominal source, recommend CT of the abdomen and pelvis. ICU management with ventilation. Once extubated, we can plan for upper GI for evaluation of leak prior to advancing diet. Alise Gallardo, Objective - Vital Signs Vital signs: Vital Signs Temp 101.2 F H 08/23/24 08:00 Pulse 110 H 08/23/24 13:00 Resp 25 H 08/23/24 13:00 BP 125/61 08/23/24 13:00 Pulse Ox 95 08/23/24 13:00 FiO2 30 08/23/24 13:05 Intake & Output 08/22/24 08/23/24 08/23/24 18:59 06:59 18:59 Intake Total 971.457 5171 841.820 Output Total 2495 2165 1400 Balance -1887.803 -636 -558.180 Weight 109.8 kg Intake: IV 300 1279 840 .9NS KVO 120 130 60 Fat Emulsion 20% 250 ml 189 In Empty Bag 1 bag @ 21 mls/hr IV Q72H [facility] Rx#: [id number] Mvi, Adult No.4 with Vit 80 960 480 K 10 ml Trace (Conc-1Ml/ Dose) 1 ml Sodium Acetate 16 meq Potassium Acetate 14 meq Potassium Phosphate 21 mmol Magnesium Sulfate gm 0.75 gm Calcium Gluconate 1 gm In Amino Acids 5 %/ Dextrose 20 % 1,000 ml @ 75 mls/hr IV .[id number] [facility] Rx#:[id number] Piperacillin-Tazobactam 3 100 .375 gm In Sodium Chloride 0.9% 100 ml @ 25 mls/hr IVPB Q8HR [facility] Rx# :[id number] Potassium Chloride 10 meq 100 In Water For Injection 1 100ml.bag @ 100 mls/hr IVPB Q1H [facility] Rx#: [id number] Potassium Chloride 10 meq 200 In Water For Injection 1 100ml.bag @ 100 mls/hr IVPB Q1H [facility] Rx#: [id number] Intake, IV Titration 307.197 250 1.820 Amount Dexmedetomidine/0.9% NaCl 94.797 (Pmx) 400 mcg In Empty Bag 1 bag @ 0.2 MCG/KG/HR 5.575 mls/hr IV .[id number] [facility] Rx#:[id number] Heparin Sod,Pork in 0.45% 250 NaCl 25,000 unit In 0.45 % NaCl 1 250ml.bag @ 6. 826 UNITS/KG/HR 10 mls/hr IV .Q24H [facility] Rx#: [id number] Norepinephrine 32 mg In 212.4 1.820 Sodium Chloride 0.9% 218 ml @ 0.03 MCG/KG/MIN 2.06 mls/hr IV .Q24H [facility] Rx#: [id number] Output: Drainage 5 10 Right abdominal ABDIAZIZ drain 5 10 Urine 2490 2155 1400 Other: Voiding Method Indwelling Catheter Indwelling Catheter ABP, PAP, CO, CI - Last Documented Arterial Blood Pressure 126/54 - Labs CBC & Chem 7: 08/23/24 05:30 08/23/24 05:30 Labs: Abnormal Lab Results - Last 24 Hours (Table) 08/22/24 08/22/24 08/23/24 Range/Units 14:03 17:20 01:00 WBC (3.8-10.6) k/uL RBC (4.30-5.90) m/uL Hgb (13.0-17.5) gm/dL Hct (39.0-53.0) % MCHC (31.0-37.0) g/dL RDW (11.5-15.5) % APTT (22.0-30.0) sec ABG pH (7.35-7.45) ABG pCO2 (35-45) mmHg ABG pO2 (83-108) mmHg ABG HCO3 (21-25) mmol/L ABG Total CO2 (19-24) mmol/L Hemoglobin (13.0-17.5) gm/dL Sodium (137-145) mmol/L BUN (9-20) mg/dL Creatinine (0.66-1.25) mg/dL Glucose (74-99) mg/dL POC Glucose (mg/dL) 292 H 248 H 292 H (70-110) mg/dL Calcium (8.4-10.2) mg/dL 08/23/24 08/23/24 08/23/24 Range/Units 05:20 05:30 05:30 WBC 14.3 H (3.8-10.6) k/uL RBC 3.89 L (4.30-5.90) m/uL Hgb 9.8 L (13.0-17.5) gm/dL Hct 32.8 L (39.0-53.0) % MCHC 29.9 L (31.0-37.0) g/dL RDW 19.5 H (11.5-15.5) % APTT (22.0-30.0) sec ABG pH 7.51 H (7.35-7.45) ABG pCO2 32 L (35-45) mmHg ABG pO2 80 L (83-108) mmHg ABG HCO3 (21-25) mmol/L ABG Total CO2 26 H (19-24) mmol/L Hemoglobin 9.5 L (13.0-17.5) gm/dL Sodium 135 L (137-145) mmol/L BUN 45 H (9-20) mg/dL Creatinine 1.32 H (0.66-1.25) mg/dL Glucose 270 H (74-99) mg/dL POC Glucose (mg/dL) (70-110) mg/dL Calcium 8.0 L (8.4-10.2) mg/dL 08/23/24 08/23/24 08/23/24 Range/Units 05:30 05:36 12:43 WBC (3.8-10.6) k/uL RBC (4.30-5.90) m/uL Hgb (13.0-17.5) gm/dL Hct (39.0-53.0) % MCHC (31.0-37.0) g/dL RDW (11.5-15.5) % APTT 52.8 H (22.0-30.0) sec ABG pH (7.35-7.45) ABG pCO2 (35-45) mmHg ABG pO2 (83-108) mmHg ABG HCO3 (21-25) mmol/L ABG Total CO2 (19-24) mmol/L Hemoglobin (13.0-17.5) gm/dL Sodium (137-145) mmol/L BUN (9-20) mg/dL Creatinine (0.66-1.25) mg/dL Glucose (74-99) mg/dL POC Glucose (mg/dL) 302 H 198 H (70-110) mg/dL Calcium (8.4-10.2) mg/dL 08/23/24 Range/Units 13:00 WBC (3.8-10.6) k/uL RBC (4.30-5.90) m/uL Hgb (13.0-17.5) gm/dL Hct (39.0-53.0) % MCHC (31.0-37.0) g/dL RDW (11.5-15.5) % APTT (22.0-30.0) sec ABG pH 7.47 H (7.35-7.45) ABG pCO2 (35-45) mmHg ABG pO2 68 L (83-108) mmHg ABG HCO3 27 H (21-25) mmol/L ABG Total CO2 28 H (19-24) mmol/L Hemoglobin 9.3 L (13.0-17.5) gm/dL Sodium (137-145) mmol/L BUN (9-20) mg/dL Creatinine (0.66-1.25) mg/dL Glucose (74-99) mg/dL POC Glucose (mg/dL) (70-110) mg/dL Calcium (8.4-10.2) mg/dL Microbiology - Last 24 Hours (Table) 08/21/24 14:35 Blood Culture - Preliminary Blood
--- NOTE | 2024-08-23 13:44 | P.PN ---
Subjective Progress Note Date: 08/23/24 Principal diagnosis: Acute pneumoperitoneum secondary to perforated gastric ulcer status post exploratory laparotomy, abdominal washout and modified Kiet patch procedure postoperative day #11 On 08/14/2024, this patient is being seen for a follow-up. The patient is postop day #2. The patient was found to have a perforated gastric ulcer with pneumoperitoneum. The patient underwent expected laparotomy abdominal washout and a modified Kiet patch. The patient is postop day #2. This morning, the patient remains intubated on mechanical ventilator. The patient on propofol running at 40 mcg/kg/min. Remains on active drinking at 125 cc an hour. Remains on norepinephrine running at 0.11 mcg/kg/min and vasopressin physiologic dose. On a mechanical ventilator, assist-control mode with rate of 18, tidal volume of 500, FiO2 30% with a PEEP of 5. Blood gas with a pH of 7.38 with a pCO2 of 33 and pO2 of 79. The patient's rhythm is atrial fibrillation. The patient has a ABDIAZIZ drain output is minimal at this point, the patient is covered with a combination of Zosyn and Diflucan. The patient received a total of 2 units of packed RBC postop. Blood work from today shows a WBC count of 26, hemoglobin 9.5 and a platelet count of 457. Sodium is at 139, BUN is 18 with a creatinine of 2.5 and a BUN of 71. Serum bicarbonate of 18. The patient does have an underlying acute on top of chronic kidney disease. He is febrile with a temperature of 101.7. He remains tachycardic. On 08/15/2024, the patient is being seen for a follow-up. This morning, the patient is still intubated on the mechanical ventilator. The patient sedated on propofol which is running at 40 mcg/kg/min. Remains on a mechanical ventilator assist-control mode at rate of 18, tidal volume of 500, FiO2 of 30% with a PEEP of 5. Blood gas from today showed a pH of 7.45 with a pCO2 of 35 and pO2 of 75. Chest x-ray from today shows ET tube in adequate location. Findings are consistent with CHF and volume overload and some worsening in the left basilar opacity/atelectasis. Hemodynamically, the patient remains in atrial fibrillation. Heart rate is under better control. The patient is on Cardizem drip that this has been weaned down to 2.5 mg an hour and the patient remains on IV heparin this was tolerated yesterday. At the same time, the patient remains on norepinephrine running at 0.1 mcg/kg/min and vasopressin physiologic dose. Lactated Ringer's running at a rate of 125 cc an hour and the patient is a positive fluid balance of 2.4 L. ABDIAZIZ output is minimal in the order of 5 to 10 cc over the past 12 hours. NG output is also minimal. Rest of the blood work showed a white cell count of 27.7, hemoglobin 8.5 and a platelet count of 407. The sodium levels at 141, BUN 58 with a creatinine of 2.1. Serum bicarb is at 23 and the chloride is 109. Glucose is 870. The blood cultures are still negative.Echocardiogram showed a impaired LV function with ejection fraction of 35 to 40%. Right ventricular systolic pressure is at 54. 08/16/2024, patient is being seen for a follow-up in the intensive care unit. This morning, the patient remains intubated on mechanical ventilator. The patient sedated on propofol running at 40 mcg/kg/min. The patient is on assist- control mode with rate of 18, tidal volume of 500, FiO2 30% with a PEEP of 5. Blood gas showed a pH of 7.46 with a pCO2 of 37 and pO2 of 71. Chest x-ray from this morning shows worsening pulmonary vascular congestion and cardiomegaly with development of bilateral pleural effusions. There are some atelectatic changes in lung bases bilaterally. The patient was started on TPN which is currently running at 30 cc an hour. IV fluids are currently at KVO. Output from the NG tube is minimal in the order of 10 cc over the past 8 hours, output from the ABDIAZIZ is minimal in the order of 10 cc an hour. The patient is in atrial fibrillation. The patient is having occasional PVCs. Remains on Cardizem drip at 2.5 mg an hour and the patient is also on IV heparin. Norepinephrine is running at 0.09 mcg/kg/min. The white cell count is improved and is currently down to 20 with a hemoglobin of 8 and a platelet count of 345. BUN is 49 with a creatinine of 1.87. Sodium levels at 142, potassium level is at 3.7, chloride is 110. Remains on a combination of Zosyn and Diflucan. On 08/17/2024, patient is being seen for a follow-up. This morning, the patient remains on propofol which is running at 40 mcg/kg/min. The patient was given sedation holiday yesterday. This was reported as the patient started having significant activities. The cardiac rhythm remains atrial fibrillation with controlled rate. This morning, the patient is calm and comfortable on propofol. He is on assist-control mode of mechanical ventilation at rate of 14, tidal volume of 500, FiO2 of 30% with a PEEP of 5. IV fluids are currently at KVO and the patient remains on TPN at a rate of 50 cc an hour. The patient is on low-dose norepinephrine running at 0.01 mcg/kg/min. The blood gas showed a pH of 7.46 with a pCO2 35 and pO2 of 70. Chest x-ray shows atelectatic changes and bilateral pleural effusions. NG tube output is in order of 100 cc over the past 8 hours. ABDIAZIZ output is in the order of 60 cc over the past 12 hours. The patient remains on IV heparin. The patient is off the Cardizem drip for now. The rest of the blood work shows a white cell count of 18, hemoglobin of 7.5 and a platelet count of 305. The sodium levels at 142, potassium level 3.8, chloride 112 and the bicarbonate is a 24. BUN 39 and a creatinine of 1.6. Blood sugars are elevated and the Lantus insulin dose will be further adjusted. No fever. No other significant events. Abdominal wound is dry clean and intact. 08/18/2024, the patient is being seen for a follow-up. She had another sedation holiday because of tachypnea and restlessness and asynchrony with a mechanical ventilator. This morning, he is on propofol. Will do a gradual propofol wean and use Precedex if needed. He is currently on propofol running at 20 mcg/kg/min. Remains on assist-control mode at rate of 14, tidal volume of 500, FiO2 of 30% with a PEEP of 5. Blood gas showed a pH of 7.43 with a pCO2 of 39 and pO2 of 88. Chest x-ray is unchanged and there is atelectatic change in the fusion lung base bilaterally. Remains on TPN for nutritional support with rate of 50 cc an hour. IV fluids are KVO. NG output is in the order of 200 cc over the past 24 hours. ABDIAZIZ output is in the order of 45 cc. Remains on norepinephrine at a dose of 0.01 mcg/kg/min. The fluid balance is -1.2 L over the past 24 hours and the patient remains on IV Lasix 40 mg every 12 hours. The patient is also on Zosyn and Diflucan. Afebrile. Hemodynamically stable with low-dose pressors. The white cell count is 18, hemoglobin 7.4 and a platelet count of 335. The BUN is 38 with a creatinine of 1.4. Sodium is at 142, bicarb is at 24. Blood sugars at 230 and Lantus dose has been modified. No other significant events overnight. On 08/19/2024, the patient is being seen for a follow-up. Remains intubated on mechanical ventilatory patient has been off propofol for the past 24 hours. He is opening his eyes and moving. Nevertheless, is not following commands yet. Bobbi coronado continues to be quite sedated. As such, no weaning trials have been done awaiting further improvement in his mentation. Cardiac rhythm is atrial fibrillation and the patient remains on IV heparin. Rate is controlled. Remains on low-dose norepinephrine which is running at 0.05 mcg/kg/min. He is on TPN at rate of 80 cc an hour. He is on the IV Lasix 40 mg every 12 hours and the fluid balance -238 cc over the past 24 hours. He is on the mechanical ventilator assist-control mode at rate of 14, tidal volume of 500, FiO2 of 30% with a PEEP of 5. Blood gas showed a pH of 7.43 with a pCO2 of 39 and pO2 of 95. NG tube output has been 50 cc over the past 12 hours. ABDIAZIZ output is minimal. Blood work from today shows a white cell count of 17, hemoglobin 7.3 and a platelet count of 319. Sodium is at 143, BUN 37 and the creatinine is at 1.45. Remains on Zosyn and Diflucan. Blood sugar control with Lantus. On 08/20/2024, the patient is off sedation the patient has been off propofol for the past 48 hours. He is still not fully awake. He moves around. Withdraws to painful stimulation. At times, he gets slightly restless. Nevertheless, he is not awake and he is not following any commands and his level of alertness remains quite diminished. For that reason, I recommended a CAT scan of the head to investigate ongoing altered mentation. The patient remains on the mechanical ventilator assist-control mode rate of 14, tidal volume of 500, FiO2 30% with a PEEP of 5. Blood gas showed a pH of 7.44 with pCO2 41 and pO2 of 97. Fluid balance is negative to 11 cc over the past 24 hours. Hemoglobin stable at 7.1 and the creatinine is down to 1.3. The patient remains on low-dose norepinephrine running at 0.02 mcg/kg/min. NG tube output is in the order of 150 cc over the past 24 hours and the patient was started on TPN for additional support. IV fluids are currently at KVO. The patient continues to be in atrial fibrillation with a controlled rate. The patient is having frequent ectopies. The patient remains on IV heparin. Antibiotic coverage include Zosyn and antico agulation with Diflucan. He is being diuresed with IV Lasix 40 mg p.o. 12 hours and a dose will be modified. The patient is on Lantus insulin 20 units twice a day and sliding scale coverage. No other significant events overnight. Patient was evaluated today on 08/21/2024, remains in the ICU intubated and mechanically ventilated, on assist-control rate of 14 tidal volume 500 FiO2 30% and PEEP of 5. Patient is now postoperative day #8, his ABG showed a pO2 of 136 pCO2 4 0 pH of 7.47 hence I did not make any ventilator changes. Patient remains on TPN, he is off propofol today, and I would like to give him a trial of weaning if we need to place on Precedex, will keep placed on Precedex, and give the patient a trial of weaning possibly today. We tried this today, and the patient became extremely agitated restless, he had to be placed back on mechanical ventilation/assist-control rate, he was tried on a pressure support of 10 and CPAP, tolerated for less than half an hour. But then as he got agitated patient required Dilaudid, and now I am recommending Precedex trial on this patient. His hemoglobin today is 6.9, hence he will receive 1 unit of packed RBCs. Remains on Zosyn and Diflucan, remains on Lasix 40 mg IV push every 8 hours. His ABDIAZIZ drain is showing minimal drainage, CT of the abdomen is negative. Patient is now postoperative day #8, had a perforated gastric ulcer. The goal today is to hopefully address weaning, his chest x-ray shows a good sized right-sided pleural effusion, may eventually require thoracentesis. Continues to have leukocytosis with WC BC count of 13.7 hemoglobin 6.9 basic metabolic profile is normal bicarb is 32 BUN is 44 creatinine 1.28, steadily improving compared to creatinine of 2.55 on admission. Patient was seen today on 08/22/2024, remains in the ICU, intubated and mechanically ventilated. On assist-control rate of 14 tidal volume 500 FiO2 30% PEEP of 5 ABG showed a pO2 of 79 pCO2 37 pH of 7.48, hence patient was kept on the same vent settings, and considering the patient is calm on Precedex today, I am recommending that we give him a trial of pressure support of 12 and CPAP. If tolerated will go to a pressure support of 8 and CPAP for about half an hour and then if tolerated we could consider checking weaning parameters, ABG on pressure support of 8 and CPAP, and if he continues to do well may even proceed to extubation. His hemoglobin today is 9.1, patient received a total of 4 units of packed RBCs since this admission. Patient is still requiring norepinephrine at 0.03 mcg per kilo per minute he is also on TPN at 80 cc/h he is on heparin drip, Precedex, and off propofol. Labs were all reviewed, WBC count is 13.1 hemoglobin is 9.1. Basic metabolic profile is normal BUN is 44 creatinine 1.17, steadily improving since his admission with creatinine of 2.55 initially. Chest x-ray showed right lower lobe atelectasis and possibly a small right-sided pleural effusion Patient was seen today on 08/23/2024, remains in ICU, intubated, mechanically ventilated, he is on assist-control rate of 14 tidal volume 500 FiO2 30% PEEP of 5. Yesterday the patient tolerated about 7 hours of pressure support of 8 and CPAP, however patient had very poor weaning parameters very marginal, and he was noted to be extremely weak, and sleepy hence patient was not extubated yesterday and I will try to do the same thing today. As a matter fact patient went for 1 hour on pressure support of 10 and CPAP, did fairly well except he remains very weak, and sleepy, and I did not feel that the patient is ready to be extubated. In addition to this the patient does have a temp of 102, white count is up to 14, and debating whether to consider CT of the abdomen and pelvis, although clinically his abdominal exam seems to be relatively benign. No tenderness, no rebound, no guarding. Patient is not requiring any norepinephrine at this point, however he is on heparin he is on Precedex at 0.3 TPN at 80 mL/h, and his chest x-ray continues to show right lower lobe atelectasis and small pleural effusion. Patient is on fluconazole and Zosyn. Again abdomen is soft, and does not seem to be surgical at this point. ABG showed a pO2 of 68 pCO2 37 pH of 7.47 and this was done on a pressure support of 10 and CPAP after 1 hour. WBC count is 14.3 hemoglobin 9.8 electrolytes are normal BUN is 45 creatinine 1.32. Objective - Vital Signs Vital signs: Vital Signs Temp 101.2 F H 08/23/24 08:00 Pulse 110 H 08/23/24 13:00 Resp 25 H 08/23/24 13:00 BP 125/61 08/23/24 13:00 Pulse Ox 95 08/23/24 13:00 FiO2 30 08/23/24 13:23 Intake & Output 08/22/24 08/23/24 08/23/24 18:59 06:59 18:59 Intake Total 654.775 2831 841.820 Output Total 2495 2165 1400 Balance -1887.803 -636 -558.180 Weight 109.8 kg 109.8 kg Intake: IV 300 1279 840 .9NS KVO 120 130 60 Fat Emulsion 20% 250 ml 189 In Empty Bag 1 bag @ 21 mls/hr IV Q72H [facility] Rx#: [id number] Mvi, Adult No.4 with Vit 80 960 480 K 10 ml Trace (Conc-1Ml/ Dose) 1 ml Sodium Acetate 16 meq Potassium Acetate 14 meq Potassium Phosphate 21 mmol Magnesium Sulfate gm 0.75 gm Calcium Gluconate 1 gm In Amino Acids 5 %/ Dextrose 20 % 1,000 ml @ 75 mls/hr IV .[id number] [facility] Rx#:[id number] Piperacillin-Tazobactam 3 100 .375 gm In Sodium Chloride 0.9% 100 ml @ 25 mls/hr IVPB Q8HR [facility] Rx# :[id number] Potassium Chloride 10 meq 100 In Water For Injection 1 100ml.bag @ 100 mls/hr IVPB Q1H [facility] Rx#: [id number] Potassium Chloride 10 meq 200 In Water For Injection 1 100ml.bag @ 100 mls/hr IVPB Q1H [facility] Rx#: [id number] Intake, IV Titration 307.197 250 1.820 Amount Dexmedetomidine/0.9% NaCl 94.797 (Pmx) 400 mcg In Empty Bag 1 bag @ 0.2 MCG/KG/HR 5.575 mls/hr IV .[id number] [facility] Rx#:[id number] Heparin Sod,Pork in 0.45% 250 NaCl 25,000 unit In 0.45 % NaCl 1 250ml.bag @ 6. 826 UNITS/KG/HR 10 mls/hr IV .Q24H [facility] Rx#: [id number] Norepinephrine 32 mg In 212.4 1.820 Sodium Chloride 0.9% 218 ml @ 0.03 MCG/KG/MIN 2.06 mls/hr IV .Q24H [facility] Rx#: [id number] Output: Drainage 5 10 Right abdominal ABDIAZIZ drain 5 10 Urine 2490 2155 1400 Other: Voiding Method Indwelling Catheter Indwelling Catheter ABP, PAP, CO, CI - Last Documented Arterial Blood Pressure 126/54 - Exam GENERAL EXAM: Revealed 79-year-old white male intubated mechanically ventilated, on Precedex, arousable, follows simple instructions but very sleepy. HEAD: Normocephalic. EYES: Sluggish reaction of pupils, equal size. NOSE: Clear with pink turbinates. THROAT: No erythema or exudates. Orogastric tube and endotracheal tube are intact. NECK: No masses, no JVD. Right IJ triple-lumen catheter in place. CHEST: No chest wall deformity. LUNGS: Diminished breath sounds at the right base no crackles rhonchi or wheezes CVS: S1 and S irregular consistent with atrial fibrillation with no audible murmur, irregular rhythm. The rate is controlled. Yeah ABDOMEN: Abdominal dressing dry and intact. ABDIAZIZ drain in place. No hepatosplenomegaly. No rebound, no guarding. No tenderness. NERVOUS SYSTEM: Arousable but feels generally weak and tends to sleep easily. But follows simple instructions like squeezing hands and wiggling toes. EXTREMITIES: 1+ bipedal edema, no cyanosis. - Labs CBC & Chem 7: 08/23/24 05:30 08/23/24 05:30 Labs: Abnormal Lab Results - Last 24 Hours (Table) 08/22/24 08/22/24 08/23/24 Range/Units 14:03 17:20 01:00 WBC (3.8-10.6) k/uL RBC (4.30-5.90) m/uL Hgb (13.0-17.5) gm/dL Hct (39.0-53.0) % MCHC (31.0-37.0) g/dL RDW (11.5-15.5) % APTT (22.0-30.0) sec ABG pH (7.35-7.45) ABG pCO2 (35-45) mmHg ABG pO2 (83-108) mmHg ABG HCO3 (21-25) mmol/L ABG Total CO2 (19-24) mmol/L Hemoglobin (13.0-17.5) gm/dL Sodium (137-145) mmol/L BUN (9-20) mg/dL Creatinine (0.66-1.25) mg/dL Glucose (74-99) mg/dL POC Glucose (mg/dL) 292 H 248 H 292 H (70-110) mg/dL Calcium (8.4-10.2) mg/dL 08/23/24 08/23/24 08/23/24 Range/Units 05:20 05:30 05:30 WBC 14.3 H (3.8-10.6) k/uL RBC 3.89 L (4.30-5.90) m/uL Hgb 9.8 L (13.0-17.5) gm/dL Hct 32.8 L (39.0-53.0) % MCHC 29.9 L (31.0-37.0) g/dL RDW 19.5 H (11.5-15.5) % APTT (22.0-30.0) sec ABG pH 7.51 H (7.35-7.45) ABG pCO2 32 L (35-45) mmHg ABG pO2 80 L (83-108) mmHg ABG HCO3 (21-25) mmol/L ABG Total CO2 26 H (19-24) mmol/L Hemoglobin 9.5 L (13.0-17.5) gm/dL Sodium 135 L (137-145) mmol/L BUN 45 H (9-20) mg/dL Creatinine 1.32 H (0.66-1.25) mg/dL Glucose 270 H (74-99) mg/dL POC Glucose (mg/dL) (70-110) mg/dL Calcium 8.0 L (8.4-10.2) mg/dL 08/23/24 08/23/24 08/23/24 Range/Units 05:30 05:36 12:43 WBC (3.8-10.6) k/uL RBC (4.30-5.90) m/uL Hgb (13.0-17.5) gm/dL Hct (39.0-53.0) % MCHC (31.0-37.0) g/dL RDW (11.5-15.5) % APTT 52.8 H (22.0-30.0) sec ABG pH (7.35-7.45) ABG pCO2 (35-45) mmHg ABG pO2 (83-108) mmHg ABG HCO3 (21-25) mmol/L ABG Total CO2 (19-24) mmol/L Hemoglobin (13.0-17.5) gm/dL Sodium (137-145) mmol/L BUN (9-20) mg/dL Creatinine (0.66-1.25) mg/dL Glucose (74-99) mg/dL POC Glucose (mg/dL) 302 H 198 H (70-110) mg/dL Calcium (8.4-10.2) mg/dL 08/23/24 Range/Units 13:00 WBC (3.8-10.6) k/uL RBC (4.30-5.90) m/uL Hgb (13.0-17.5) gm/dL Hct (39.0-53.0) % MCHC (31.0-37.0) g/dL RDW (11.5-15.5) % APTT (22.0-30.0) sec ABG pH 7.47 H (7.35-7.45) ABG pCO2 (35-45) mmHg ABG pO2 68 L (83-108) mmHg ABG HCO3 27 H (21-25) mmol/L ABG Total CO2 28 H (19-24) mmol/L Hemoglobin 9.3 L (13.0-17.5) gm/dL Sodium (137-145) mmol/L BUN (9-20) mg/dL Creatinine (0.66-1.25) mg/dL Glucose (74-99) mg/dL POC Glucose (mg/dL) (70-110) mg/dL Calcium (8.4-10.2) mg/dL Microbiology - Last 24 Hours (Table) 08/21/24 14:35 Blood Culture - Preliminary Blood Assessment and Plan Assessment: Impression: Acute hypoxic respiratory failure secondary to acute surgical abdomen and abdominal sepsis with septic shock Acute pneumoperitoneum secondary to perforated gastric ulcer, status post exploratory laparotomy abdominal washout and modified Kiet patch postoperative day #11 Acute abdominal sepsis and septic shock remains on antibiotics, remains on norepinephrine at 0.03 mcg/kg/min., Remains on antibiotics including Zosyn and Diflucan Hypotension, secondary to abdominal sepsis and septic shock still requiring norepinephrine Right-sided pleural effusion and bipedal edema patient is demonstrating third spacing most likely secondary to hypoalbuminemia Severe LV dysfunction with ejection fraction of 35% Acute blood loss anemia patient received so far 2 units of packed RBCs since admission Leukocytosis secondary to abdominal sepsis Acute kidney injury secondary to sepsis and septic shock Chronic atrial fibrillation, rate controlled History of hypertension History of prostate cancer Recommendation: Continue to monitor in the ICU, patient did go on 7 hours of pressure support and CPAP yesterday, but remained with very marginal weaning parameters, hence he was not extubated and will try to do the same today. As a matter fact I did try him on pressure support and CPAP for 1 hour, ABG is marginal, weaning parameters are marginal, hence will place back on AC mode and will hold on weaning and extubation for now. Consider CT of the abdomen but clinically at this point I do not see value of the CT of the abdomen unless we notice persistent fever and worsening leukocytosis with worsening abdominal findings. Continue ventilatory support Continue antibiotics and antifungal for his abdominal sepsis Continue GI and DVT prophylaxis, Continue to monitor renal status and address accordingly and monitor electrolytes Continue Lasix Continue TPN at 80 cc/h/nutritional support Continue insulin and sliding scale coverage Continue to hold norepinephrine presently is not required as he seems to be more hemodynamically stable compared to the last few days. Continue to monitor all cultures, continue antibiotics empirically for abdominal sepsis Continue to monitor hemoglobin, consider transfusion if hemoglobin drifts below 7. Daily x-rays and daily labs Patient remains critically ill. Updated on his condition today. Critical care time is 34 minutes Time with Patient: Greater than 30
[2024-08-23] MEDS: NOREPINEPHRINE 4 MG in SODIUM CHLORIDE 0.9% 250 ML IV SCH (15:20)
[2024-08-23 18:16] LABS: Glucose,Whole Blood 232 mg/dL (70-110)
[2024-08-23] MEDS: ANIDULAFUNGIN 100 MG in SODIUM CHLORIDE 0.9% 100 ML IVPB SCH (20:07)
[2024-08-23 23:58] LABS: Glucose,Whole Blood 246 mg/dL (70-110)
[2024-08-24 03:48] LABS: Anisocytosis Slight; HCT 30.7 % (39.0-53.0); HGB 9.1 gm/dL (13.0-17.5); Hypochromasia Marked; MCH 24.6 pg (25.0-35.0); MCHC 29.6 g/dL (31.0-37.0); MCV 83.2 fL (80.0-100.0); Mean Platelet Volume 9.2; Microcytosis Slight; Platelet Count 341 k/uL (150-450); Poikilocytosis Slight; RBC 3.68 m/uL (4.30-5.90); RDW 19.6 % (11.5-15.5)
[2024-08-24 04:26] LABS: Ionized Calcium 4.6 mg/dL (4.5-5.3)
--- NOTE | 2024-08-24 05:14 | P.PN ---
Subjective Progress Note Date: 08/23/24 This is a 79-year-old male who was monitored in the intensive care unit. He is postoperative day #2 repair of perforated gastric ulcer with Kiet patch. He remains sedated and intubated on the mechanical ventilator. Patient has been febrile with a Tmax of 101.7 axillary in the last 24 hours. He was noted to be in atrial fibrillation with RVR and has been started on IV Cardizem. Eliquis remains on hold postsurgically. Patient continues on multiple antibiotic therapy including IV fluconazole IV Zosyn with infectious disease following closely. He is currently sedated with propofol he is requiring Levophed and vasopressin support. Blood culture remains negative so far. Labs reveal a white blood cell complement 3.7, hemoglobin 9.5, sodium 139, potassium 4.1, BUN of 31 creatinine 3.52 calcium of 6.8 chest x-ray today reveals continued CHF exacerbation and fluid overload state with no significant for 1 day earlier. Patient does have hypotensive bowel sounds. 08/15/2024 Patient is evaluated in the ICU he remains on the mechanical ventilator with PEEP of 5 and FiO2 of 30%. He is postoperative day #3 repair of perforated gastric ulcer with kiet patch. Currently sedated with propofol. Chest xray findings suggest continued CHF exacerbation fluid over load state. worsening left basilar opacity could reflect acute infiltrate and or atelectasis. Correlate clinically. White blood cell count 27.7, hgb 8.5, sodium 141, potassium 3.9, BUN 58, creatinine 2.10. Magnesium 1.8. 08/16/2024 Patient is evaluated today in the intensive care unit he is postoperative day #4 to get with Kiet patch. Patient remains sedated with propofol. He is currently intubated and on mechanical ventilator with a PEEP of 5 and FiO2 of 30%. Chest x-ray today reveals worsening CHF. His white blood cell count today is 20.9, hemoglobin 8, BUN of 49 creatinine of 1.87. Patient remains on room. He was having runs of V. tach and was taken off IV Cardizem started on an oral metoprolol on an outpatient basis. his heart rate is controlled. He continues on IV Zosyn. He remains on IV fluconazole. Blood sugars are elevated after the start of TPN. He was started on a small dose of Lantus and we will continue to monitor and make adjustments as needed. 08/17/2024 Patient is evaluated today in the ICU. He remains sedated and intubated on the mechanical ventilator. PEEP of 5 and FiO2 of 40%. Patient currently undergoing sedation holiday and has not been responsive. Patient received IV lasix x 1 and has since been started on IV lasix 40 mg [id number]. Patient remains on IV heparin. Continues on IV metoprolol and no further reports of ectopi noted. White blood cell count 18.0, hgb 7.5, BUN 39, creatinine 1.64. Blood glucose remains elevated in the 200s. Chest xray today reveals continued CHF. 08/18/2024 Patient is evaluated in follow-up in the intensive care unit. He remains sedated and intubated on mechanical ventilator. Patient is a PEEP of 5 and FiO2 of 40%. Labs today reveals white blood cell count 18.4, hgb 7.4, BUN 38, creatinine 1.45. Blood glucose in the 200s. Patient remains on IV fluconazole and IV zosyn. Remains on IV heparin. Patient on small dose of levo. Continues on TPN. Patient had low grade fever 100.1 overnight. 08/19/2024 Patient is eval seen in follow-up in the intensive care unit. He remains sedated and intubated on mechanical ventilator. He is any sedation held today and is more awake alert with spontaneous eye opening and tracking. His daughter is at the bedside. Ventilator settings were adjusted and he continues on a PEEP of 5 with an FiO2 of 30%. He remains on IV fluconazole and IV Zosyn. Chest x- ray today reveals stable findings suggestive of CHF overload state. He continues on IV Lasix which was increased to 40 mg every 8 hours. He continues on IV heparin. He is on a small dose of Levophed. 08/20/2024 Patient is evaluated in follow-up in the intensive care unit. Patient remains a sedated intubated on the mechanical ventilator his FiO2 remains at 30%. He is more awake alert and oriented. Family at the bedside. Patient continues on a course of IV fluconazole and IV Zosyn. ID following closely. He remains on IV heparin. Patient continues with TPN. He remains on IV Lasix 40 mg every 8 hours. Chest x-ray today reveals CHF. Labs today white blood cell count 14.8, hemoglobin 7.1, BUN of 42 creatinine of 1.31 sodium of 143. 08/21/2024 Patient is seen in follow-up remains in the ICU on mechanical ventilation. Per nursing staff attempting to wean and extubate although unsuccessful and patient is currently maintained on mechanical ventilation FiO2 is 50% with a PEEP of 5. Patient is to continue on IV Lasix and would recommend continuing as there is significant overload noted. Patient only on fluconazole and will repeat blood cultures also reinitiate Zosyn as patient is having elevated white count and low-grade temps. 08/22/2024 Patient seen in the ICU remains on mechanical ventilation with an FiO2 of 50% and PEEP is 5. White count is trending down at 14 today and patient is afebrile. Patient is continued on Zosyn and also fluconazole although will transition to Eraxis. Patient continues on Lasix continues with significant swelling although somewhat improved. Family at bedside with questions and concerns that were answered. Will attempt sedation trials to monitor mentation with no plans of extubation at this time. 08/23/2024 Patient continues in the ICU on mechanical ventilation and PEEP is at 5 with an FiO2 of 30%. Patient is waking up on sedation trials and per at the bedside has been biting on the OG tube although not following commands. No plans of extubation at this time. Patient is continued on Zosyn and also Eraxis and white count is elevated above 14 and having fevers overnight. Patient will continue on antibiotics and follow-up on cultures along with repeat CBC in AM. Patient continues on IV Lasix showing some improvement in of upper lower extremities although continues to be significantly edematous. Unable to complete a review of systems as patient is currently intubated and sedated in the intensive care unit PHYSICAL EXAMINATION: GENERAL: The patient is sedated, remains on mechanical ventilation with an FiO2 is 30%. Well developed, ill-appearing, elderly appearing, obese. Pale HEENT: Pupils are round and equally reacting to light. EOMI. No scleral icterus. No conjunctival pallor. Normocephalic, atraumatic. No pharyngeal erythema. No thyromegaly. CARDIOVASCULAR: S1 and S2 muffled PULMONARY: Diminished breath sounds bilaterally with some faint crackles noted ABDOMEN: Soft, obese, nontender, nondistended, Hypoactive bowel sounds. No palpable organomegaly. Mid line incision intact no surrounding erythema or drainage MUSCULOSKELETAL: No joint swelling or deformity. EXTREMITIES: No cyanosis, clubbing, or pedal edema. Upper and lower generalized edema, 1+ pitting NEUROLOGICAL: Gross neurological examination did not reveal any focal deficits. Diffusely weak SKIN: No rashes. Pale Assessment: Perforated gastric ulcer pneumoperitoneum postoperative day #10 surgical repair with Kiet patch Septic shock secondary to above Acute kidney injury due to acute tubular necrosis from infection Atrial fibrillation with rapid ventricular rate, currently rate controlled Acute CHF exacerbation, systolic dysfunction EF 35-40%. History of atrial fibrillation, maintained on oral anticoagulant outpatient, currently on heparin Diabetes mellitus type 2, uncontrolled with hyperglycemia History of stage III pancreatic cancer History hypertension Hyperlipidemia Obesity with a BMI of 35.1 VTE prophylaxis continues on IV heparin GI prophylaxis Full code Plan: Patient continues in the ICU with multiple consultations following maintained on mechanical ventilation with an FiO2 of 30% and PEEP is 5. Undergoing sedation trials with no plans of extubation at this time Cardiology following making adjustments to medications and is maintained on low- dose pressor support and weaning as tolerated White count remains elevated and patient having fevers overnight recommend repeat labs and will follow-up on repeat labs, continue Zosyn and Eraxis Continue IV Lasix and monitor kidney functions closely as patient is significantly edematous Recommend aspiration precautions with head of the bed elevated 30 to 45 degrees at all times Continue TPN with pharmacy and dietary to dose Replace electrolytes per protocol Continue monitoring Accu-Cheks before meals and at bedtime and will adjust insulins as blood sugars have been elevated. Patient is also on long-acting twice daily which has been increased. We will continue to follow with general surgery during hospitalization. Thank you for this consultation. Overall prognosis is guarded at this time The impression and plan of care has been dictated by Chinyere Pruitt, Nurse Pract itioner as directed. Dr. Miky MD I have performed a history and physical examination and medical decision making of this patient, discussed the same with the dictator, and agree with the dictators assessment and plan as written, documented as a scribe. Based on total visit time, I have performed more than 50% of this visit. Objective - Vital Signs Vital signs: Vital Signs Temp 100.1 F H 08/24/24 04:00 Pulse 92 08/24/24 05:00 Resp 20 08/24/24 05:00 BP 104/62 08/24/24 05:00 Pulse Ox 97 08/24/24 05:00 FiO2 30 03/20/25 04:05 Intake & Output 08/23/24 08/23/24 08/24/24 06:59 18:59 06:59 Intake Total 1529 2637.353 1860.945 Output Total 2165 1999 3080 Balance -636 637.353 -1219.055 Weight 109.8 kg 109.8 kg 109 kg Intake: IV 1279 1465 1260 .9NS KVO 130 110 110 ACETAMINOPHEN IV (For NPO 100 100 ) 1,000 mg In Empty Bag 1 bag @ 400 mls/hr IVPB Q6HR PRN Rx#:[id number] Anidulafungin 100 mg In 100 Sodium Chloride 0.9% 100 ml @ 84 mls/hr IVPB DAILY @1999 [facility] Rx#:[id number] Fat Emulsion 20% 250 ml 189 In Empty Bag 1 bag @ 21 mls/hr IV Q72H [facility] Rx#: [id number] Mvi, Adult No.4 with Vit 960 880 800 K 10 ml Trace (Conc-1Ml/ Dose) 1 ml Sodium Acetate 16 meq Potassium Acetate 14 meq Potassium Phosphate 21 mmol Magnesium Sulfate gm 0.75 gm Calcium Gluconate 1 gm In Amino Acids 5 %/ Dextrose 20 % 1,000 ml @ 75 mls/hr IV .[id number] [facility] Rx#:[id number] Piperacillin-Tazobactam 3 175 150 .375 gm In Sodium Chloride 0.9% 100 ml @ 25 mls/hr IVPB Q8HR [facility] Rx# :[id number] Potassium Chloride 10 meq 200 In Water For Injection 1 100ml.bag @ 100 mls/hr IVPB Q1H [facility] Rx#: [id number] Intake, IV Titration 250 1172.353 600.945 Amount Dexmedetomidine/0.9% NaCl 119.033 72.960 (Pmx) 400 mcg In Empty Bag 1 bag @ 0.2 MCG/KG/HR 5.575 mls/hr IV .[id number] [facility] Rx#:[id number] Heparin Sod,Pork in 0.45% 250 396.555 NaCl 25,000 unit In 0.45 % NaCl 1 250ml.bag @ 6. 826 UNITS/KG/HR 10 mls/hr IV .Q24H [facility] Rx#: [id number] Mvi, Adult No.4 with Vit 1051.5 K 10 ml Trace (Conc-1Ml/ Dose) 1 ml Sodium Acetate 22 meq Potassium Phosphate 9 mmol Magnesium Sulfate gm 0.75 gm Potassium Chloride 30 meq Calcium Gluconate 1 gm In Amino Acid 5%-D15w 1,000 ml @ 80 mls/hr IV . BY DURATION [facility] Rx#: [id number] Norepinephrine 32 mg In 1.820 Sodium Chloride 0.9% 218 ml @ 0.03 MCG/KG/MIN 2.06 mls/hr IV .Q24H [facility] Rx#: [id number] Norepinephrine 4 mg In 131.430 Sodium Chloride 0.9% 250 ml @ 0.03 MCG/KG/MIN 12. 55 mls/hr IV .[id number] [facility] Rx#:[id number] Output: Drainage 10 Right abdominal ABDIAZIZ drain 10 Urine 2155 2000 3080 Other: Voiding Method Indwelling Catheter Indwelling Catheter Indwelling Catheter ABP, PAP, CO, CI - Last Documented Arterial Blood Pressure 126/54 - Labs CBC & Chem 7: 08/24/24 03:11 08/23/24 05:30 Labs: Abnormal Lab Results - Last 24 Hours (Table) 08/23/24 08/23/24 08/23/24 Range/Units 05:20 05:30 05:30 WBC 14.3 H (3.8-10.6) k/uL RBC 3.89 L (4.30-5.90) m/uL Hgb 9.8 L (13.0-17.5) gm/dL Hct 32.8 L (39.0-53.0) % MCH (25.0-35.0) pg MCHC 29.9 L (31.0-37.0) g/dL RDW 19.5 H (11.5-15.5) % APTT (22.0-30.0) sec ABG pH 7.51 H (7.35-7.45) ABG pCO2 32 L (35-45) mmHg ABG pO2 80 L (83-108) mmHg ABG HCO3 (21-25) mmol/L ABG Total CO2 26 H (19-24) mmol/L Hemoglobin 9.5 L (13.0-17.5) gm/dL Sodium 135 L (137-145) mmol/L BUN 45 H (9-20) mg/dL Creatinine 1.32 H (0.66-1.25) mg/dL Glucose 270 H (74-99) mg/dL POC Glucose (mg/dL) (70-110) mg/dL Calcium 8.0 L (8.4-10.2) mg/dL 08/23/24 08/23/24 08/23/24 Range/Units 05:30 05:36 12:43 WBC (3.8-10.6) k/uL RBC (4.30-5.90) m/uL Hgb (13.0-17.5) gm/dL Hct (39.0-53.0) % MCH (25.0-35.0) pg MCHC (31.0-37.0) g/dL RDW (11.5-15.5) % APTT 52.8 H (22.0-30.0) sec ABG pH (7.35-7.45) ABG pCO2 (35-45) mmHg ABG pO2 (83-108) mmHg ABG HCO3 (21-25) mmol/L ABG Total CO2 (19-24) mmol/L Hemoglobin (13.0-17.5) gm/dL Sodium (137-145) mmol/L BUN (9-20) mg/dL Creatinine (0.66-1.25) mg/dL Glucose (74-99) mg/dL POC Glucose (mg/dL) 302 H 198 H (70-110) mg/dL Calcium (8.4-10.2) mg/dL 08/23/24 08/23/24 08/23/24 Range/Units 13:00 18:15 23:56 WBC (3.8-10.6) k/uL RBC (4.30-5.90) m/uL Hgb (13.0-17.5) gm/dL Hct (39.0-53.0) % MCH (25.0-35.0) pg MCHC (31.0-37.0) g/dL RDW (11.5-15.5) % APTT (22.0-30.0) sec ABG pH 7.47 H (7.35-7.45) ABG pCO2 (35-45) mmHg ABG pO2 68 L (83-108) mmHg ABG HCO3 27 H (21-25) mmol/L ABG Total CO2 28 H (19-24) mmol/L Hemoglobin 9.3 L (13.0-17.5) gm/dL Sodium (137-145) mmol/L BUN (9-20) mg/dL Creatinine (0.66-1.25) mg/dL Glucose (74-99) mg/dL POC Glucose (mg/dL) 232 H 246 H (70-110) mg/dL Calcium (8.4-10.2) mg/dL 08/24/24 Range/Units 03:11 WBC 16.0 H (3.8-10.6) k/uL RBC 3.68 L (4.30-5.90) m/uL Hgb 9.1 L (13.0-17.5) gm/dL Hct 30.7 L (39.0-53.0) % MCH 24.6 L (25.0-35.0) pg MCHC 29.6 L (31.0-37.0) g/dL RDW 19.6 H (11.5-15.5) % APTT (22.0-30.0) sec ABG pH (7.35-7.45) ABG pCO2 (35-45) mmHg ABG pO2 (83-108) mmHg ABG HCO3 (21-25) mmol/L ABG Total CO2 (19-24) mmol/L Hemoglobin (13.0-17.5) gm/dL Sodium (137-145) mmol/L BUN (9-20) mg/dL Creatinine (0.66-1.25) mg/dL Glucose (74-99) mg/dL POC Glucose (mg/dL) (70-110) mg/dL Calcium (8.4-10.2) mg/dL Microbiology - Last 24 Hours (Table) 08/21/24 14:35 Blood Culture - Preliminary Blood
[2024-08-24 05:31] LABS: ABG HCO3 25 mmol/L (21-25); ABG Oxygen Saturation 94.8 % (94-97); ABG PCO2 32 mmHg (35-45); ABG PO2 68 mmHg (83-108); ABG TCO2 26 mmol/L (19-24); Allen Test Performed? Yes
[2024-08-24 05:48] LABS: African American GFR (CKD) 64 (>60 ml/min/1.73 sqM); Anion Gap 10 mmol/L; Blood Urea Nitrogen 46 mg/dL (9-20); Calcium 8.3 mg/dL (8.4-10.2); Carbon Dioxide 22 mmol/L (22-30); Chloride 103 mmol/L (98-107); Glucose 219 mg/dL (74-99); Non-African American GFR(CKD) 55 (>60 ml/min/1.73 sqM); Phosphorus 4.3 mg/dL (2.5-4.5); Potassium 3.9 mmol/L (3.5-5.1); Sodium 135 mmol/L (137-145)
[2024-08-24 06:02] LABS: Glucose,Whole Blood 295 mg/dL (70-110)
[2024-08-24] MEDS: POTASSIUM CHLORIDE 10 MEQ in WATER FOR INJECTION 1 100ML.BAG IVPB SCH (06:07)
--- NOTE | 2024-08-24 07:18 | XR ---
EXAMINATION TYPE: XR chest 1V portable DATE OF EXAM: 08/24/2024 5:39 AM COMPARISON: Chest radiograph from one day prior. CLINICAL INDICATION: Male, 79 years old with history of intubated; [facility] TECHNIQUE: XR chest 1V portable Frontal view of the chest. FINDINGS: Lungs/Pleura: Blunting of the right costophrenic angle. There is no evidence of left pleural effusio n, focal consolidation, or pneumothorax Pulmonary vascularity: Unremarkable. Heart/mediastinum: Cardiomediastinal silhouette is unremarkable. Musculoskeletal: No acute osseous pathology. There is lower spine fixation hardware is present. Other findings: None Lines/Tubes: Endotracheal tube with distal tip 3.4 cm above the shakira. Nasogastric tube with its distal tip and side-port projecting under the diaphragm. Right internal jugular central venous catheter with distal tip at the cavoatrial junction. IMPRESSION: 1. Right pleural effusion. 2. Stable support line and tubes. [facility], , 08/24/2024 7:16 AM
[2024-08-24 07:24] LABS: Ionized Calcium 4.6 mg/dL (4.5-5.3)
[2024-08-24] MEDS ORDERED: ACETAMINOPHEN IV (For NPO) 1,000 MG in EMPTY BAG 1 BAG IVPB SCH (08:15)
[2024-08-24] MEDS: INSULIN GLARGINE (LANTUS) 100 UNIT/ML SYR SQ SCH (08:20)
[2024-08-24 08:42] LABS: African American GFR (CKD) 63 (>60 ml/min/1.73 sqM); Anion Gap 10 mmol/L; Blood Urea Nitrogen 47 mg/dL (9-20); Calcium 7.8 mg/dL (8.4-10.2); Carbon Dioxide 24 mmol/L (22-30); Chloride 101 mmol/L (98-107); Glucose 238 mg/dL (74-99); Non-African American GFR(CKD) 54 (>60 ml/min/1.73 sqM); Phosphorus 4.7 mg/dL (2.5-4.5); Potassium 4.3 mmol/L (3.5-5.1); Sodium 135 mmol/L (137-145)
--- NOTE | 2024-08-24 11:53 | P.PN ---
Subjective Progress Note Date: 08/24/24 Principal diagnosis: Acute pneumoperitoneum secondary to perforated gastric ulcer status post exploratory laparotomy, abdominal washout and modified Kiet patch procedure postoperative day #12 On 08/14/2024, this patient is being seen for a follow-up. The patient is postop day #2. The patient was found to have a perforated gastric ulcer with pneumoperitoneum. The patient underwent expected laparotomy abdominal washout and a modified Kiet patch. The patient is postop day #2. This morning, the patient remains intubated on mechanical ventilator. The patient on propofol running at 40 mcg/kg/min. Remains on active drinking at 125 cc an hour. Remains on norepinephrine running at 0.11 mcg/kg/min and vasopressin physiologic dose. On a mechanical ventilator, assist-control mode with rate of 18, tidal volume of 500, FiO2 30% with a PEEP of 5. Blood gas with a pH of 7.38 with a pCO2 of 33 and pO2 of 79. The patient's rhythm is atrial fibrillation. The patient has a ABDIAZIZ drain output is minimal at this point, the patient is covered with a combination of Zosyn and Diflucan. The patient received a total of 2 units of packed RBC postop. Blood work from today shows a WBC count of 26, hemoglobin 9.5 and a platelet count of 457. Sodium is at 139, BUN is 18 with a creatinine of 2.5 and a BUN of 71. Serum bicarbonate of 18. The patient does have an underlying acute on top of chronic kidney disease. He is febrile with a temperature of 101.7. He remains tachycardic. On 08/15/2024, the patient is being seen for a follow-up. This morning, the patient is still intubated on the mechanical ventilator. The patient sedated on propofol which is running at 40 mcg/kg/min. Remains on a mechanical ventilator assist-control mode at rate of 18, tidal volume of 500, FiO2 of 30% with a PEEP of 5. Blood gas from today showed a pH of 7.45 with a pCO2 of 35 and pO2 of 75. Chest x-ray from today shows ET tube in adequate location. Findings are consistent with CHF and volume overload and some worsening in the left basilar opacity/atelectasis. Hemodynamically, the patient remains in atrial fibrillation. Heart rate is under better control. The patient is on Cardizem drip that this has been weaned down to 2.5 mg an hour and the patient remains on IV heparin this was tolerated yesterday. At the same time, the patient remains on norepinephrine running at 0.1 mcg/kg/min and vasopressin physiologic dose. Lactated Ringer's running at a rate of 125 cc an hour and the patient is a positive fluid balance of 2.4 L. ABDIAZIZ output is minimal in the order of 5 to 10 cc over the past 12 hours. NG output is also minimal. Rest of the blood work showed a white cell count of 27.7, hemoglobin 8.5 and a platelet count of 407. The sodium levels at 141, BUN 58 with a creatinine of 2.1. Serum bicarb is at 23 and the chloride is 109. Glucose is 870. The blood cultures are still negative.Echocardiogram showed a impaired LV function with ejection fraction of 35 to 40%. Right ventricular systolic pressure is at 54. 08/16/2024, patient is being seen for a follow-up in the intensive care unit. This morning, the patient remains intubated on mechanical ventilator. The patient sedated on propofol running at 40 mcg/kg/min. The patient is on assist- control mode with rate of 18, tidal volume of 500, FiO2 30% with a PEEP of 5. Blood gas showed a pH of 7.46 with a pCO2 of 37 and pO2 of 71. Chest x-ray from this morning shows worsening pulmonary vascular congestion and cardiomegaly with development of bilateral pleural effusions. There are some atelectatic changes in lung bases bilaterally. The patient was started on TPN which is currently running at 30 cc an hour. IV fluids are currently at KVO. Output from the NG tube is minimal in the order of 10 cc over the past 8 hours, output from the ABDIAZIZ is minimal in the order of 10 cc an hour. The patient is in atrial fibrillation. The patient is having occasional PVCs. Remains on Cardizem drip at 2.5 mg an hour and the patient is also on IV heparin. Norepinephrine is running at 0.09 mcg/kg/min. The white cell count is improved and is currently down to 20 with a hemoglobin of 8 and a platelet count of 345. BUN is 49 with a creatinine of 1.87. Sodium levels at 142, potassium level is at 3.7, chloride is 110. Remains on a combination of Zosyn and Diflucan. On 08/17/2024, patient is being seen for a follow-up. This morning, the patient remains on propofol which is running at 40 mcg/kg/min. The patient was given sedation holiday yesterday. This was reported as the patient started having significant activities. The cardiac rhythm remains atrial fibrillation with controlled rate. This morning, the patient is calm and comfortable on propofol. He is on assist-control mode of mechanical ventilation at rate of 14, tidal volume of 500, FiO2 of 30% with a PEEP of 5. IV fluids are currently at KVO and the patient remains on TPN at a rate of 50 cc an hour. The patient is on low-dose norepinephrine running at 0.01 mcg/kg/min. The blood gas showed a pH of 7.46 with a pCO2 35 and pO2 of 70. Chest x-ray shows atelectatic changes and bilateral pleural effusions. NG tube output is in order of 100 cc over the past 8 hours. ABDIAZIZ output is in the order of 60 cc over the past 12 hours. The patient remains on IV heparin. The patient is off the Cardizem drip for now. The rest of the blood work shows a white cell count of 18, hemoglobin of 7.5 and a platelet count of 305. The sodium levels at 142, potassium level 3.8, chloride 112 and the bicarbonate is a 24. BUN 39 and a creatinine of 1.6. Blood sugars are elevated and the Lantus insulin dose will be further adjusted. No fever. No other significant events. Abdominal wound is dry clean and intact. 08/18/2024, the patient is being seen for a follow-up. She had another sedation holiday because of tachypnea and restlessness and asynchrony with a mechanical ventilator. This morning, he is on propofol. Will do a gradual propofol wean and use Precedex if needed. He is currently on propofol running at 20 mcg/kg/min. Remains on assist-control mode at rate of 14, tidal volume of 500, FiO2 of 30% with a PEEP of 5. Blood gas showed a pH of 7.43 with a pCO2 of 39 and pO2 of 88. Chest x-ray is unchanged and there is atelectatic change in the fusion lung base bilaterally. Remains on TPN for nutritional support with rate of 50 cc an hour. IV fluids are KVO. NG output is in the order of 200 cc over the past 24 hours. ABDIAZIZ output is in the order of 45 cc. Remains on norepinephrine at a dose of 0.01 mcg/kg/min. The fluid balance is -1.2 L over the past 24 hours and the patient remains on IV Lasix 40 mg every 12 hours. The patient is also on Zosyn and Diflucan. Afebrile. Hemodynamically stable with low-dose pressors. The white cell count is 18, hemoglobin 7.4 and a platelet count of 335. The BUN is 38 with a creatinine of 1.4. Sodium is at 142, bicarb is at 24. Blood sugars at 230 and Lantus dose has been modified. No other significant events overnight. On 08/19/2024, the patient is being seen for a follow-up. Remains intubated on mechanical ventilatory patient has been off propofol for the past 24 hours. He is opening his eyes and moving. Nevertheless, is not following commands yet. Bobbi coronado continues to be quite sedated. As such, no weaning trials have been done awaiting further improvement in his mentation. Cardiac rhythm is atrial fibrillation and the patient remains on IV heparin. Rate is controlled. Remains on low-dose norepinephrine which is running at 0.05 mcg/kg/min. He is on TPN at rate of 80 cc an hour. He is on the IV Lasix 40 mg every 12 hours and the fluid balance -238 cc over the past 24 hours. He is on the mechanical ventilator assist-control mode at rate of 14, tidal volume of 500, FiO2 of 30% with a PEEP of 5. Blood gas showed a pH of 7.43 with a pCO2 of 39 and pO2 of 95. NG tube output has been 50 cc over the past 12 hours. ABDIAZIZ output is minimal. Blood work from today shows a white cell count of 17, hemoglobin 7.3 and a platelet count of 319. Sodium is at 143, BUN 37 and the creatinine is at 1.45. Remains on Zosyn and Diflucan. Blood sugar control with Lantus. On 08/20/2024, the patient is off sedation the patient has been off propofol for the past 48 hours. He is still not fully awake. He moves around. Withdraws to painful stimulation. At times, he gets slightly restless. Nevertheless, he is not awake and he is not following any commands and his level of alertness remains quite diminished. For that reason, I recommended a CAT scan of the head to investigate ongoing altered mentation. The patient remains on the mechanical ventilator assist-control mode rate of 14, tidal volume of 500, FiO2 30% with a PEEP of 5. Blood gas showed a pH of 7.44 with pCO2 41 and pO2 of 97. Fluid balance is negative to 11 cc over the past 24 hours. Hemoglobin stable at 7.1 and the creatinine is down to 1.3. The patient remains on low-dose norepinephrine running at 0.02 mcg/kg/min. NG tube output is in the order of 150 cc over the past 24 hours and the patient was started on TPN for additional support. IV fluids are currently at KVO. The patient continues to be in atrial fibrillation with a controlled rate. The patient is having frequent ectopies. The patient remains on IV heparin. Antibiotic coverage include Zosyn and antico agulation with Diflucan. He is being diuresed with IV Lasix 40 mg p.o. 12 hours and a dose will be modified. The patient is on Lantus insulin 20 units twice a day and sliding scale coverage. No other significant events overnight. Patient was evaluated today on 08/21/2024, remains in the ICU intubated and mechanically ventilated, on assist-control rate of 14 tidal volume 500 FiO2 30% and PEEP of 5. Patient is now postoperative day #8, his ABG showed a pO2 of 136 pCO2 4 0 pH of 7.47 hence I did not make any ventilator changes. Patient remains on TPN, he is off propofol today, and I would like to give him a trial of weaning if we need to place on Precedex, will keep placed on Precedex, and give the patient a trial of weaning possibly today. We tried this today, and the patient became extremely agitated restless, he had to be placed back on mechanical ventilation/assist-control rate, he was tried on a pressure support of 10 and CPAP, tolerated for less than half an hour. But then as he got agitated patient required Dilaudid, and now I am recommending Precedex trial on this patient. His hemoglobin today is 6.9, hence he will receive 1 unit of packed RBCs. Remains on Zosyn and Diflucan, remains on Lasix 40 mg IV push every 8 hours. His ABDIAZIZ drain is showing minimal drainage, CT of the abdomen is negative. Patient is now postoperative day #8, had a perforated gastric ulcer. The goal today is to hopefully address weaning, his chest x-ray shows a good sized right-sided pleural effusion, may eventually require thoracentesis. Continues to have leukocytosis with WC BC count of 13.7 hemoglobin 6.9 basic metabolic profile is normal bicarb is 32 BUN is 44 creatinine 1.28, steadily improving compared to creatinine of 2.55 on admission. Patient was seen today on 08/22/2024, remains in the ICU, intubated and mechanically ventilated. On assist-control rate of 14 tidal volume 500 FiO2 30% PEEP of 5 ABG showed a pO2 of 79 pCO2 37 pH of 7.48, hence patient was kept on the same vent settings, and considering the patient is calm on Precedex today, I am recommending that we give him a trial of pressure support of 12 and CPAP. If tolerated will go to a pressure support of 8 and CPAP for about half an hour and then if tolerated we could consider checking weaning parameters, ABG on pressure support of 8 and CPAP, and if he continues to do well may even proceed to extubation. His hemoglobin today is 9.1, patient received a total of 4 units of packed RBCs since this admission. Patient is still requiring norepinephrine at 0.03 mcg per kilo per minute he is also on TPN at 80 cc/h he is on heparin drip, Precedex, and off propofol. Labs were all reviewed, WBC count is 13.1 hemoglobin is 9.1. Basic metabolic profile is normal BUN is 44 creatinine 1.17, steadily improving since his admission with creatinine of 2.55 initially. Chest x-ray showed right lower lobe atelectasis and possibly a small right-sided pleural effusion Patient was seen today on 08/23/2024, remains in ICU, intubated, mechanically ventilated, he is on assist-control rate of 14 tidal volume 500 FiO2 30% PEEP of 5. Yesterday the patient tolerated about 7 hours of pressure support of 8 and CPAP, however patient had very poor weaning parameters very marginal, and he was noted to be extremely weak, and sleepy hence patient was not extubated yesterday and I will try to do the same thing today. As a matter fact patient went for 1 hour on pressure support of 10 and CPAP, did fairly well except he remains very weak, and sleepy, and I did not feel that the patient is ready to be extubated. In addition to this the patient does have a temp of 102, white count is up to 14, and debating whether to consider CT of the abdomen and pelvis, although clinically his abdominal exam seems to be relatively benign. No tenderness, no rebound, no guarding. Patient is not requiring any norepinephrine at this point, however he is on heparin he is on Precedex at 0.3 TPN at 80 mL/h, and his chest x-ray continues to show right lower lobe atelectasis and small pleural effusion. Patient is on fluconazole and Zosyn. Again abdomen is soft, and does not seem to be surgical at this point. ABG showed a pO2 of 68 pCO2 37 pH of 7.47 and this was done on a pressure support of 10 and CPAP after 1 hour. WBC count is 14.3 hemoglobin 9.8 electrolytes are normal BUN is 45 creatinine 1.32. Patient was seen today on 08/24/2024, patient remains intubated and mechanically ventilated, remains on the same vent settings including tidal volume of 500 rate 14 FiO2 30% and PEEP of 5. However as I walked in to see the patient, minutes earlier apparently the patient extubated himself, and the tube has to be ad vanced by respiratory therapy back, and it was already pulled almost 5 cm proximally. Patient is having anxiety and agitation, there is some air leak, patient is not getting his tidal volumes, hence I recommended that we proceed to extubating the patient to BiPAP. Patient is following instructions, but he seems to be generally weak and slow. He is on Precedex he is on TPN, he is also on heparin and norepinephrine is presently on hold. Reviewed his chest x-ray today, showed mostly atelectasis and small right-sided pleural effusion which may or may not require thoracentesis. Reviewed his labs, and ABG this morning showed a pO2 of 68 pCO2 32 pH of 7.50 his basic metabolic profile is normal. Creatinine 1.26, blood sugar is 238. Considering the patient was marginal for extubation and considering the event this morning, I went ahead and recommended extubating the patient to BiPAP. And this was done, patient seemed to tolerate that better than being on mechanical ventilation at this point. Objective - Vital Signs Vital signs: Vital Signs Temp 101.3 F H 08/24/24 08:00 Pulse 88 08/24/24 11:28 Resp 30 H 03/20/25 11:28 BP 108/58 08/24/24 11:00 Pulse Ox 96 08/24/24 11:35 FiO2 40 08/24/24 11:19 Intake & Output 08/23/24 08/24/24 08/24/24 18:59 06:59 18:59 Intake Total 2637.353 2134.238 615.553 Output Total 1999 3300 590 Balance 637.353 -1165.762 25.553 Weight 109.8 kg 109 kg Intake: IV 1465 1440 460 .9NS KVO 110 130 40 ACETAMINOPHEN IV (For NPO 100 100 ) 1,000 mg In Empty Bag 1 bag @ 400 mls/hr IVPB Q6HR PRN Rx#:[id number] Anidulafungin 100 mg In 100 Sodium Chloride 0.9% 100 ml @ 84 mls/hr IVPB DAILY @1999 ROSA Rx#:[id number] Mvi, Adult No.4 with Vit 880 960 320 K 10 ml Trace (Conc-1Ml/ Dose) 1 ml Sodium Acetate 16 meq Potassium Acetate 14 meq Potassium Phosphate 21 mmol Magnesium Sulfate gm 0.75 gm Calcium Gluconate 1 gm In Amino Acids 5 %/ Dextrose 20 % 1,000 ml @ 75 mls/hr IV .[id number] ROSA Rx#:[id number] Piperacillin-Tazobactam 3 175 150 100 .375 gm In Sodium Chloride 0.9% 100 ml @ 25 mls/hr IVPB Q8HR ROSA Rx# :[id number] Potassium Chloride 10 meq 200 In Water For Injection 1 100ml.bag @ 100 mls/hr IVPB Q1H ROSA Rx#: [id number] Intake, IV Titration 1172.353 694.238 155.553 Amount Dexmedetomidine/0.9% NaCl 119.033 161.931 45.206 (Pmx) 400 mcg In Empty Bag 1 bag @ 0.2 MCG/KG/HR 5.575 mls/hr IV .[id number] ROSA Rx#:[id number] Heparin Sod,Pork in 0.45% 396.555 103.445 NaCl 25,000 unit In 0.45 % NaCl 1 250ml.bag @ 6. 826 UNITS/KG/HR 10 mls/hr IV .Q24H ROSA Rx#: [id number] Mvi, Adult No.4 with Vit 1051.5 K 10 ml Trace (Conc-1Ml/ Dose) 1 ml Sodium Acetate 22 meq Potassium Phosphate 9 mmol Magnesium Sulfate gm 0.75 gm Potassium Chloride 30 meq Calcium Gluconate 1 gm In Amino Acid 5%-D15w 1,000 ml @ 80 mls/hr IV . BY DURATION ROSA Rx#: [id number] Norepinephrine 32 mg In 1.820 Sodium Chloride 0.9% 218 ml @ 0.03 MCG/KG/MIN 2.06 mls/hr IV .Q24H ROSA Rx#: [id number] Norepinephrine 4 mg In 135.752 6.902 Sodium Chloride 0.9% 250 ml @ 0.03 MCG/KG/MIN 12. 55 mls/hr IV .[id number] ROSA Rx#:[id number] Output: Drainage 20 Right abdominal ABDIAZIZ drain 20 Urine 2000 3280 590 Other: Voiding Method Indwelling Catheter Indwelling Catheter ABP, PAP, CO, CI - Last Documented Arterial Blood Pressure 126/54 - Exam GENERAL EXAM: Revealed 79-year-old white male intubated mechanically ventilated, weak, follows simple instructions HEAD: Normocephalic. EYES: Sluggish reaction of pupils, equal size. NOSE: Clear with pink turbinates. THROAT: No erythema or exudates. Orogastric tube and endotracheal tube are intact. NECK: No masses, no JVD. Right IJ triple-lumen catheter in place. CHEST: No chest wall deformity. LUNGS: Diminished breath sounds at the right base no crackles rhonchi or wheezes CVS: S1 and S irregular consistent with atrial fibrillation with no audible murmur, irregular rhythm. The rate is controlled. Yeah ABDOMEN: Abdominal dressing dry and intact. ABDIAZIZ drain in place. No hepatosplenomegaly. No rebound, no guarding. No tenderness. NERVOUS SYSTEM: Arousable follows simple instructions but seems to be generally weak EXTREMITIES: 1+ bipedal edema, no cyanosis. - Labs CBC & Chem 7: 08/24/24 03:11 08/24/24 05:23 Labs: Abnormal Lab Results - Last 24 Hours (Table) 08/23/24 08/23/24 08/23/24 Range/Units 12:43 13:00 18:15 WBC (3.8-10.6) k/uL RBC (4.30-5.90) m/uL Hgb (13.0-17.5) gm/dL Hct (39.0-53.0) % MCH (25.0-35.0) pg MCHC (31.0-37.0) g/dL RDW (11.5-15.5) % APTT (22.0-30.0) sec ABG pH 7.47 H (7.35-7.45) ABG pCO2 (35-45) mmHg ABG pO2 68 L (83-108) mmHg ABG HCO3 27 H (21-25) mmol/L ABG Total CO2 28 H (19-24) mmol/L Hemoglobin 9.3 L (13.0-17.5) gm/dL Sodium (137-145) mmol/L BUN (9-20) mg/dL Creatinine (0.66-1.25) mg/dL Glucose (74-99) mg/dL POC Glucose (mg/dL) 198 H 232 H (70-110) mg/dL Calcium (8.4-10.2) mg/dL Phosphorus (2.5-4.5) mg/dL 08/23/24 08/24/24 08/24/24 Range/Units 23:56 03:11 03:11 WBC 16.0 H (3.8-10.6) k/uL RBC 3.68 L (4.30-5.90) m/uL Hgb 9.1 L (13.0-17.5) gm/dL Hct 30.7 L (39.0-53.0) % MCH 24.6 L (25.0-35.0) pg MCHC 29.6 L (31.0-37.0) g/dL RDW 19.6 H (11.5-15.5) % APTT (22.0-30.0) sec ABG pH (7.35-7.45) ABG pCO2 (35-45) mmHg ABG pO2 (83-108) mmHg ABG HCO3 (21-25) mmol/L ABG Total CO2 (19-24) mmol/L Hemoglobin (13.0-17.5) gm/dL Sodium 135 L (137-145) mmol/L BUN 46 H (9-20) mg/dL Creatinine (0.66-1.25) mg/dL Glucose 219 H (74-99) mg/dL POC Glucose (mg/dL) 246 H (70-110) mg/dL Calcium 8.3 L (8.4-10.2) mg/dL Phosphorus (2.5-4.5) mg/dL 08/24/24 08/24/24 08/24/24 Range/Units 05:23 05:28 06:00 WBC (3.8-10.6) k/uL RBC (4.30-5.90) m/uL Hgb (13.0-17.5) gm/dL Hct (39.0-53.0) % MCH (25.0-35.0) pg MCHC (31.0-37.0) g/dL RDW (11.5-15.5) % APTT (22.0-30.0) sec ABG pH 7.50 H (7.35-7.45) ABG pCO2 32 L (35-45) mmHg ABG pO2 68 L (83-108) mmHg ABG HCO3 (21-25) mmol/L ABG Total CO2 26 H (19-24) mmol/L Hemoglobin 8.8 L (13.0-17.5) gm/dL Sodium 135 L (137-145) mmol/L BUN 47 H (9-20) mg/dL Creatinine 1.26 H (0.66-1.25) mg/dL Glucose 238 H (74-99) mg/dL POC Glucose (mg/dL) 295 H (70-110) mg/dL Calcium 7.8 L (8.4-10.2) mg/dL Phosphorus 4.7 H (2.5-4.5) mg/dL 08/24/24 Range/Units 10:39 WBC (3.8-10.6) k/uL RBC (4.30-5.90) m/uL Hgb (13.0-17.5) gm/dL Hct (39.0-53.0) % MCH (25.0-35.0) pg MCHC (31.0-37.0) g/dL RDW (11.5-15.5) % APTT 82.1 H (22.0-30.0) sec ABG pH (7.35-7.45) ABG pCO2 (35-45) mmHg ABG pO2 (83-108) mmHg ABG HCO3 (21-25) mmol/L ABG Total CO2 (19-24) mmol/L Hemoglobin (13.0-17.5) gm/dL Sodium (137-145) mmol/L BUN (9-20) mg/dL Creatinine (0.66-1.25) mg/dL Glucose (74-99) mg/dL POC Glucose (mg/dL) (70-110) mg/dL Calcium (8.4-10.2) mg/dL Phosphorus (2.5-4.5) mg/dL Microbiology - Last 24 Hours (Table) 08/21/24 14:35 Blood Culture - Preliminary Blood Assessment and Plan Assessment: Impression: Acute hypoxic respiratory failure secondary to acute surgical abdomen and abdominal sepsis with septic shock Acute pneumoperitoneum secondary to perforated gastric ulcer, status post exploratory laparotomy abdominal washout and modified Kiet patch postoperative day #12 Acute abdominal sepsis and septic shock remains on antibiotics, remains on norepinephrine at 0.03 mcg/kg/min., Remains on antibiotics including Zosyn and Diflucan Hypotension, secondary to abdominal sepsis and septic shock still requiring norepinephrine Right-sided pleural effusion and bipedal edema patient is demonstrating third spacing most likely secondary to hypoalbuminemia Severe LV dysfunction with ejection fraction of 35% Acute blood loss anemia patient received so far 2 units of packed RBCs since admission Leukocytosis secondary to abdominal sepsis Acute kidney injury secondary to sepsis and septic shock Chronic atrial fibrillation, rate controlled History of hypertension History of prostate cancer Recommendation: Patient was extubated to BiPAP, 05/11/40% Continue to monitor in the ICU, Consider CT of the abdomen however considering the abdomen is clinically soft I will hold on CT of the abdomen and pelvis for now. Continue antibiotics and antifungal for his abdominal sepsis Continue to hold narcotics and sedatives, but continue Precedex and titrate accordingly Continue GI and DVT prophylaxis, Continue to monitor renal status Continue Lasix Continue TPN at 80 cc/h/nutritional support Continue insulin and sliding scale coverage Use norepinephrine as needed presently on hold Continue to monitor hemoglobin, consider transfusion if hemoglobin drifts below 7. Repeat chest x-ray in a.m., consider ultrasound of the chest if no significant improvement noted in his right side pleural effusion Patient remains critically ill. Critical care time is 32 minutes Time with Patient: Greater than 30
[2024-08-24 11:59] LABS: Glucose,Whole Blood 253 mg/dL (70-110)
--- NOTE | 2024-08-24 12:15 | P.PN ---
Subjective Patient is seen for follow-up for acute kidney injury. Maintained on IV Lasix Serum creatinine at 1.26 mg/dL Patient has been extubated. Good urine output noted. Objective - Vital Signs Vital signs: Vital Signs Temp 101.3 F H 08/24/24 08:00 Pulse 88 08/24/24 11:28 Resp 30 H 08/24/24 11:28 BP 108/58 08/24/24 11:00 Pulse Ox 96 08/24/24 11:35 FiO2 40 08/24/24 11:19 Intake & Output 08/23/24 08/24/24 08/24/24 18:59 06:59 18:59 Intake Total 2637.353 2134.238 615.553 Output Total 1999 3300 590 Balance 637.353 -1165.762 25.553 Weight 109.8 kg 109 kg Intake: IV 1465 1440 460 .9NS KVO 110 130 40 ACETAMINOPHEN IV (For NPO 100 100 ) 1,000 mg In Empty Bag 1 bag @ 400 mls/hr IVPB Q6HR PRN Rx#:[id number] Anidulafungin 100 mg In 100 Sodium Chloride 0.9% 100 ml @ 84 mls/hr IVPB DAILY @1999 [facility] Rx#:[id number] Mvi, Adult No.4 with Vit 880 960 320 K 10 ml Trace (Conc-1Ml/ Dose) 1 ml Sodium Acetate 16 meq Potassium Acetate 14 meq Potassium Phosphate 21 mmol Magnesium Sulfate gm 0.75 gm Calcium Gluconate 1 gm In Amino Acids 5 %/ Dextrose 20 % 1,000 ml @ 75 mls/hr IV .[id number] [facility] Rx#:[id number] Piperacillin-Tazobactam 3 175 150 100 .375 gm In Sodium Chloride 0.9% 100 ml @ 25 mls/hr IVPB Q8HR [facility] Rx# :[id number] Potassium Chloride 10 meq 200 In Water For Injection 1 100ml.bag @ 100 mls/hr IVPB Q1H [facility] Rx#: [id number] Intake, IV Titration 1172.353 694.238 155.553 Amount Dexmedetomidine/0.9% NaCl 119.033 161.931 45.206 (Pmx) 400 mcg In Empty Bag 1 bag @ 0.2 MCG/KG/HR 5.575 mls/hr IV .[id number] [facility] Rx#:[id number] Heparin Sod,Pork in 0.45% 396.555 103.445 NaCl 25,000 unit In 0.45 % NaCl 1 250ml.bag @ 6. 826 UNITS/KG/HR 10 mls/hr IV .Q24H [facility] Rx#: [id number] Mvi, Adult No.4 with Vit 1051.5 K 10 ml Trace (Conc-1Ml/ Dose) 1 ml Sodium Acetate 22 meq Potassium Phosphate 9 mmol Magnesium Sulfate gm 0.75 gm Potassium Chloride 30 meq Calcium Gluconate 1 gm In Amino Acid 5%-D15w 1,000 ml @ 80 mls/hr IV . BY DURATION [facility] Rx#: [id number] Norepinephrine 32 mg In 1.820 Sodium Chloride 0.9% 218 ml @ 0.03 MCG/KG/MIN 2.06 mls/hr IV .Q24H [facility] Rx#: [id number] Norepinephrine 4 mg In 135.752 6.902 Sodium Chloride 0.9% 250 ml @ 0.03 MCG/KG/MIN 12. 55 mls/hr IV .[id number] [facility] Rx#:[id number] Output: Drainage 20 Right abdominal ABDIAZIZ drain 20 Urine 2000 3280 590 Other: Voiding Method Indwelling Catheter Indwelling Catheter ABP, PAP, CO, CI - Last Documented Arterial Blood Pressure 126/54 - Exam Patient is awake, on BiPAP Examination of the heart S1 and S2 Examination of the lungs bilateral breath sounds are heard Abdomen is dressed Examination lower extremity shows edema 1+ bilateral - Labs CBC & Chem 7: 08/24/24 03:11 08/24/24 05:23 Labs: Abnormal Lab Results - Last 24 Hours (Table) 08/23/24 08/23/24 08/23/24 Range/Units 12:43 13:00 18:15 WBC (3.8-10.6) k/uL RBC (4.30-5.90) m/uL Hgb (13.0-17.5) gm/dL Hct (39.0-53.0) % MCH (25.0-35.0) pg MCHC (31.0-37.0) g/dL RDW (11.5-15.5) % APTT (22.0-30.0) sec ABG pH 7.47 H (7.35-7.45) ABG pCO2 (35-45) mmHg ABG pO2 68 L (83-108) mmHg ABG HCO3 27 H (21-25) mmol/L ABG Total CO2 28 H (19-24) mmol/L Hemoglobin 9.3 L (13.0-17.5) gm/dL Sodium (137-145) mmol/L BUN (9-20) mg/dL Creatinine (0.66-1.25) mg/dL Glucose (74-99) mg/dL POC Glucose (mg/dL) 198 H 232 H (70-110) mg/dL Calcium (8.4-10.2) mg/dL Phosphorus (2.5-4.5) mg/dL 08/23/24 08/24/24 08/24/24 Range/Units 23:56 03:11 03:11 WBC 16.0 H (3.8-10.6) k/uL RBC 3.68 L (4.30-5.90) m/uL Hgb 9.1 L (13.0-17.5) gm/dL Hct 30.7 L (39.0-53.0) % MCH 24.6 L (25.0-35.0) pg MCHC 29.6 L (31.0-37.0) g/dL RDW 19.6 H (11.5-15.5) % APTT (22.0-30.0) sec ABG pH (7.35-7.45) ABG pCO2 (35-45) mmHg ABG pO2 (83-108) mmHg ABG HCO3 (21-25) mmol/L ABG Total CO2 (19-24) mmol/L Hemoglobin (13.0-17.5) gm/dL Sodium 135 L (137-145) mmol/L BUN 46 H (9-20) mg/dL Creatinine (0.66-1.25) mg/dL Glucose 219 H (74-99) mg/dL POC Glucose (mg/dL) 246 H (70-110) mg/dL Calcium 8.3 L (8.4-10.2) mg/dL Phosphorus (2.5-4.5) mg/dL 08/24/24 08/24/24 08/24/24 Range/Units 05:23 05:28 06:00 WBC (3.8-10.6) k/uL RBC (4.30-5.90) m/uL Hgb (13.0-17.5) gm/dL Hct (39.0-53.0) % MCH (25.0-35.0) pg MCHC (31.0-37.0) g/dL RDW (11.5-15.5) % APTT (22.0-30.0) sec ABG pH 7.50 H (7.35-7.45) ABG pCO2 32 L (35-45) mmHg ABG pO2 68 L (83-108) mmHg ABG HCO3 (21-25) mmol/L ABG Total CO2 26 H (19-24) mmol/L Hemoglobin 8.8 L (13.0-17.5) gm/dL Sodium 135 L (137-145) mmol/L BUN 47 H (9-20) mg/dL Creatinine 1.26 H (0.66-1.25) mg/dL Glucose 238 H (74-99) mg/dL POC Glucose (mg/dL) 295 H (70-110) mg/dL Calcium 7.8 L (8.4-10.2) mg/dL Phosphorus 4.7 H (2.5-4.5) mg/dL 08/24/24 08/24/24 Range/Units 10:39 11:57 WBC (3.8-10.6) k/uL RBC (4.30-5.90) m/uL Hgb (13.0-17.5) gm/dL Hct (39.0-53.0) % MCH (25.0-35.0) pg MCHC (31.0-37.0) g/dL RDW (11.5-15.5) % APTT 82.1 H (22.0-30.0) sec ABG pH (7.35-7.45) ABG pCO2 (35-45) mmHg ABG pO2 (83-108) mmHg ABG HCO3 (21-25) mmol/L ABG Total CO2 (19-24) mmol/L Hemoglobin (13.0-17.5) gm/dL Sodium (137-145) mmol/L BUN (9-20) mg/dL Creatinine (0.66-1.25) mg/dL Glucose (74-99) mg/dL POC Glucose (mg/dL) 253 H (70-110) mg/dL Calcium (8.4-10.2) mg/dL Phosphorus (2.5-4.5) mg/dL Microbiology - Last 24 Hours (Table) 08/21/24 14:35 Blood Culture - Preliminary Blood Assessment and Plan Assessment: 1. Acute kidney injury secondary to ATN. Creatinine 1.5 in January 2024 and 2.5 this admission. Renal function improving. Currently being diuresed. Creatinine 1.26. Nonoliguric. No hydronephrosis noted on CT. 2. Perforated gastric ulcer with pneumoperitoneum status post ex lap with closure of ulcer August 13, 2024. 3. Septic shock on vasopressor support. 4. Metabolic acidosis secondary to acute kidney injury and lactic acidosis. Improved. 5. Diabetes mellitus. 6. A-fib with RVR. On oral meds. Cardiology following. 7. Volume overload. Improving with diuresis. Plan: Continue with IV Lasix Maintained on TPN Monitor electrolytes
[2024-08-24] MEDS: ACETAMINOPHEN IV (For NPO) 1,000 MG in EMPTY BAG 1 BAG IVPB SCH (12:18)
--- NOTE | 2024-08-24 12:57 | P.PN ---
Subjective Progress Note Date: 08/24/24 SURGICAL PROGRESS NOTE CHIEF COMPLAINT: Perforated gastric ulcer HISTORY OF PRESENT ILLNESS: Patient is postop day #11 status post exploratory laparotomy and modified Kiet patch for perforated gastric ulcer. Patient extubated this morning and on BiPAP. Patient continues to have fevers. Tmax of 101.8. White count did go up from 14-16. His BP has been on the lower side. ABDIAZIZ drain 20 mL serosanguineous output PHYSICAL EXAM: VITAL SIGNS: Reviewed. GENERAL: no acute distress. ABDOMEN: Soft. Nondistended. Incisional dressing pulled down. Incision clean dry and intact. Small amount of dried blood noted. NEUROLOGIC: Awake. Sleepy ASSESSMENT: 1. Perforated gastric ulcer status post exploratory laparotomy and modified Kiet patch 2. Hypokalemia improved 3. A-fib on IV heparin PLAN: -Recommend upper GI after patient is more awake -Also tomorrow will consider CT with oral Gastrografin contrast to further investigate source of fevers -Continue TPN for nutrition support -Continue ICU management -Continue supportive care -Continue NG tube to low intermittent suction -Keep n.p.o. -Continue antibiotics -Continue to monitor ABDIAZIZ drain output -Continue IV Protonix -Continue to monitor hemoglobin -Continue IV Tylenol for pain management and fevers Physician Clinical Laboratory Technologist note has been reviewed by physician. Signing provider agrees with the documented findings, assessment, and plan of care. Attestation Patient seen and examined at bedside on 08/24/2024. Patient finally extubated. Recommend upper GI after patient is more awake. Possibility of CT with oral Gastrografin depending on workup for fevers. Continue TPN. Continue ICU management. Alise Gallardo DO Objective - Vital Signs Vital signs: Vital Signs Temp 101.3 F H 08/24/24 08:00 Pulse 88 08/24/24 11:28 Resp 30 H 08/24/24 11:28 BP 108/58 08/24/24 11:00 Pulse Ox 96 08/24/24 11:35 FiO2 40 08/24/24 11:19 Intake & Output 08/23/24 08/24/24 08/24/24 18:59 06:59 18:59 Intake Total 2637.353 2134.238 615.553 Output Total 1999 3300 590 Balance 637.353 -1165.762 25.553 Weight 109.8 kg 109 kg Intake: IV 1465 1440 460 .9NS KVO 110 130 40 ACETAMINOPHEN IV (For NPO 100 100 ) 1,000 mg In Empty Bag 1 bag @ 400 mls/hr IVPB Q6HR PRN Rx#:[id number] Anidulafungin 100 mg In 100 Sodium Chloride 0.9% 100 ml @ 84 mls/hr IVPB DAILY @2000 [facility] Rx#:[id number] Mvi, Adult No.4 with Vit 880 960 320 K 10 ml Trace (Conc-1Ml/ Dose) 1 ml Sodium Acetate 16 meq Potassium Acetate 14 meq Potassium Phosphate 21 mmol Magnesium Sulfate gm 0.75 gm Calcium Gluconate 1 gm In Amino Acids 5 %/ Dextrose 20 % 1,000 ml @ 75 mls/hr IV .[id number] [facility] Rx#:[id number] Piperacillin-Tazobactam 3 175 150 100 .375 gm In Sodium Chloride 0.9% 100 ml @ 25 mls/hr IVPB Q8HR [facility] Rx# :[id number] Potassium Chloride 10 meq 200 In Water For Injection 1 100ml.bag @ 100 mls/hr IVPB Q1H [facility] Rx#: [id number] Intake, IV Titration 1172.353 694.238 155.553 Amount Dexmedetomidine/0.9% NaCl 119.033 161.931 45.206 (Pmx) 400 mcg In Empty Bag 1 bag @ 0.2 MCG/KG/HR 5.575 mls/hr IV .[id number] [facility] Rx#:[id number] Heparin Sod,Pork in 0.45% 396.555 103.445 NaCl 25,000 unit In 0.45 % NaCl 1 250ml.bag @ 6. 826 UNITS/KG/HR 10 mls/hr IV .Q24H [facility] Rx#: [id number] Mvi, Adult No.4 with Vit 1051.5 K 10 ml Trace (Conc-1Ml/ Dose) 1 ml Sodium Acetate 22 meq Potassium Phosphate 9 mmol Magnesium Sulfate gm 0.75 gm Potassium Chloride 30 meq Calcium Gluconate 1 gm In Amino Acid 5%-D15w 1,000 ml @ 80 mls/hr IV . BY DURATION [facility] Rx#: [id number] Norepinephrine 32 mg In 1.820 Sodium Chloride 0.9% 218 ml @ 0.03 MCG/KG/MIN 2.06 mls/hr IV .Q24H [facility] Rx#: [id number] Norepinephrine 4 mg In 135.752 6.902 Sodium Chloride 0.9% 250 ml @ 0.03 MCG/KG/MIN 12. 55 mls/hr IV .[id number] [facility] Rx#:[id number] Output: Drainage 20 Right abdominal ABDIAZIZ drain 20 Urine 2000 3280 590 Other: Voiding Method Indwelling Catheter Indwelling Catheter ABP, PAP, CO, CI - Last Documented Arterial Blood Pressure 126/54 - Labs CBC & Chem 7: 08/27/24 05:22 08/28/24 05:28 Labs: Abnormal Lab Results - Last 24 Hours (Table) 08/23/24 08/23/24 08/23/24 Range/Units 12:43 13:00 18:15 WBC (3.8-10.6) k/uL RBC (4.30-5.90) m/uL Hgb (13.0-17.5) gm/dL Hct (39.0-53.0) % MCH (25.0-35.0) pg MCHC (31.0-37.0) g/dL RDW (11.5-15.5) % APTT (22.0-30.0) sec ABG pH 7.47 H (7.35-7.45) ABG pCO2 (35-45) mmHg ABG pO2 68 L (83-108) mmHg ABG HCO3 27 H (21-25) mmol/L ABG Total CO2 28 H (19-24) mmol/L Hemoglobin 9.3 L (13.0-17.5) gm/dL Sodium (137-145) mmol/L BUN (9-20) mg/dL Creatinine (0.66-1.25) mg/dL Glucose (74-99) mg/dL POC Glucose (mg/dL) 198 H 232 H (70-110) mg/dL Calcium (8.4-10.2) mg/dL Phosphorus (2.5-4.5) mg/dL 08/23/24 08/24/24 08/24/24 Range/Units 23:56 03:11 03:11 WBC 16.0 H (3.8-10.6) k/uL RBC 3.68 L (4.30-5.90) m/uL Hgb 9.1 L (13.0-17.5) gm/dL Hct 30.7 L (39.0-53.0) % MCH 24.6 L (25.0-35.0) pg MCHC 29.6 L (31.0-37.0) g/dL RDW 19.6 H (11.5-15.5) % APTT (22.0-30.0) sec ABG pH (7.35-7.45) ABG pCO2 (35-45) mmHg ABG pO2 (83-108) mmHg ABG HCO3 (21-25) mmol/L ABG Total CO2 (19-24) mmol/L Hemoglobin (13.0-17.5) gm/dL Sodium 135 L (137-145) mmol/L BUN 46 H (9-20) mg/dL Creatinine (0.66-1.25) mg/dL Glucose 219 H (74-99) mg/dL POC Glucose (mg/dL) 246 H (70-110) mg/dL Calcium 8.3 L (8.4-10.2) mg/dL Phosphorus (2.5-4.5) mg/dL 08/24/24 08/24/24 08/24/24 Range/Units 05:23 05:28 06:00 WBC (3.8-10.6) k/uL RBC (4.30-5.90) m/uL Hgb (13.0-17.5) gm/dL Hct (39.0-53.0) % MCH (25.0-35.0) pg MCHC (31.0-37.0) g/dL RDW (11.5-15.5) % APTT (22.0-30.0) sec ABG pH 7.50 H (7.35-7.45) ABG pCO2 32 L (35-45) mmHg ABG pO2 68 L (83-108) mmHg ABG HCO3 (21-25) mmol/L ABG Total CO2 26 H (19-24) mmol/L Hemoglobin 8.8 L (13.0-17.5) gm/dL Sodium 135 L (137-145) mmol/L BUN 47 H (9-20) mg/dL Creatinine 1.26 H (0.66-1.25) mg/dL Glucose 238 H (74-99) mg/dL POC Glucose (mg/dL) 295 H (70-110) mg/dL Calcium 7.8 L (8.4-10.2) mg/dL Phosphorus 4.7 H (2.5-4.5) mg/dL 08/24/24 08/24/24 Range/Units 10:39 11:57 WBC (3.8-10.6) k/uL RBC (4.30-5.90) m/uL Hgb (13.0-17.5) gm/dL Hct (39.0-53.0) % MCH (25.0-35.0) pg MCHC (31.0-37.0) g/dL RDW (11.5-15.5) % APTT 82.1 H (22.0-30.0) sec ABG pH (7.35-7.45) ABG pCO2 (35-45) mmHg ABG pO2 (83-108) mmHg ABG HCO3 (21-25) mmol/L ABG Total CO2 (19-24) mmol/L Hemoglobin (13.0-17.5) gm/dL Sodium (137-145) mmol/L BUN (9-20) mg/dL Creatinine (0.66-1.25) mg/dL Glucose (74-99) mg/dL POC Glucose (mg/dL) 253 H (70-110) mg/dL Calcium (8.4-10.2) mg/dL Phosphorus (2.5-4.5) mg/dL Microbiology - Last 24 Hours (Table) 08/21/24 14:35 Blood Culture - Preliminary Blood
[2024-08-24] MEDS: FOLIC ACID 1 MG TAB PO SCH (16:21)
[2024-08-24] MEDS: THIAMINE 100 MG TAB PO SCH (16:22)
[2024-08-24] MEDS: MULTIVITAMINS, THERA 1 EACH TAB PO SCH (16:22)
[2024-08-24 23:31] LABS: Glucose,Whole Blood 134 mg/dL (70-110)
[2024-08-25 03:38] LABS: Anisocytosis Slight; HCT 28.5 % (39.0-53.0); HGB 8.7 gm/dL (13.0-17.5); Hypochromasia Marked; MCH 25.6 pg (25.0-35.0); MCHC 30.5 g/dL (31.0-37.0); Mean Platelet Volume 8.6; Microcytosis Slight; Platelet Count 312 k/uL (150-450); Poikilocytosis Slight; RBC 3.39 m/uL (4.30-5.90); RDW 19.6 % (11.5-15.5); WBC 18.8 k/uL (3.8-10.6)
[2024-08-25 03:51] LABS: African American GFR (CKD) 69 (>60 ml/min/1.73 sqM); Anion Gap 9 mmol/L; Blood Urea Nitrogen 44 mg/dL (9-20); Calcium 8.2 mg/dL (8.4-10.2); Carbon Dioxide 23 mmol/L (22-30); Chloride 103 mmol/L (98-107); Glucose 143 mg/dL (74-99); Non-African American GFR(CKD) 59 (>60 ml/min/1.73 sqM); Phosphorus 4.3 mg/dL (2.5-4.5); Potassium 3.7 mmol/L (3.5-5.1); Sodium 135 mmol/L (137-145)
--- NOTE | 2024-08-25 05:36 | P.PN ---
Subjective Progress Note Date: 08/24/24 This is a 79-year-old male who was monitored in the intensive care unit. He is postoperative day #2 repair of perforated gastric ulcer with Kiet patch. He remains sedated and intubated on the mechanical ventilator. Patient has been febrile with a Tmax of 101.7 axillary in the last 24 hours. He was noted to be in atrial fibrillation with RVR and has been started on IV Cardizem. Eliquis remains on hold postsurgically. Patient continues on multiple antibiotic therapy including IV fluconazole IV Zosyn with infectious disease following closely. He is currently sedated with propofol he is requiring Levophed and vasopressin support. Blood culture remains negative so far. Labs reveal a white blood cell complement 3.7, hemoglobin 9.5, sodium 139, potassium 4.1, BUN of 31 creatinine 3.52 calcium of 6.8 chest x-ray today reveals continued CHF exacerbation and fluid overload state with no significant for 1 day earlier. Patient does have hypotensive bowel sounds. 08/15/2024 Patient is evaluated in the ICU he remains on the mechanical ventilator with PEEP of 5 and FiO2 of 30%. He is postoperative day #3 repair of perforated gastric ulcer with kiet patch. Currently sedated with propofol. Chest xray findings suggest continued CHF exacerbation fluid over load state. worsening left basilar opacity could reflect acute infiltrate and or atelectasis. Correlate clinically. White blood cell count 27.7, hgb 8.5, sodium 141, potassium 3.9, BUN 58, creatinine 2.10. Magnesium 1.8. 08/16/2024 Patient is evaluated today in the intensive care unit he is postoperative day #4 to get with Kiet patch. Patient remains sedated with propofol. He is currently intubated and on mechanical ventilator with a PEEP of 5 and FiO2 of 30%. Chest x-ray today reveals worsening CHF. His white blood cell count today is 20.9, hemoglobin 8, BUN of 49 creatinine of 1.87. Patient remains on room. He was having runs of V. tach and was taken off IV Cardizem started on an oral metoprolol on an outpatient basis. his heart rate is controlled. He continues on IV Zosyn. He remains on IV fluconazole. Blood sugars are elevated after the start of TPN. He was started on a small dose of Lantus and we will continue to monitor and make adjustments as needed. 08/17/2024 Patient is evaluated today in the ICU. He remains sedated and intubated on the mechanical ventilator. PEEP of 5 and FiO2 of 40%. Patient currently undergoing sedation holiday and has not been responsive. Patient received IV lasix x 1 and has since been started on IV lasix 40 mg [id number]. Patient remains on IV heparin. Continues on IV metoprolol and no further reports of ectopi noted. White blood cell count 18.0, hgb 7.5, BUN 39, creatinine 1.64. Blood glucose remains elevated in the 200s. Chest xray today reveals continued CHF. 08/18/2024 Patient is evaluated in follow-up in the intensive care unit. He remains sedated and intubated on mechanical ventilator. Patient is a PEEP of 5 and FiO2 of 40%. Labs today reveals white blood cell count 18.4, hgb 7.4, BUN 38, creatinine 1.45. Blood glucose in the 200s. Patient remains on IV fluconazole and IV zosyn. Remains on IV heparin. Patient on small dose of levo. Continues on TPN. Patient had low grade fever 100.1 overnight. 08/19/2024 Patient is eval seen in follow-up in the intensive care unit. He remains sedated and intubated on mechanical ventilator. He is any sedation held today and is more awake alert with spontaneous eye opening and tracking. His daughter is at the bedside. Ventilator settings were adjusted and he continues on a PEEP of 5 with an FiO2 of 30%. He remains on IV fluconazole and IV Zosyn. Chest x- ray today reveals stable findings suggestive of CHF overload state. He continues on IV Lasix which was increased to 40 mg every 8 hours. He continues on IV heparin. He is on a small dose of Levophed. 08/20/2024 Patient is evaluated in follow-up in the intensive care unit. Patient remains a sedated intubated on the mechanical ventilator his FiO2 remains at 30%. He is more awake alert and oriented. Family at the bedside. Patient continues on a course of IV fluconazole and IV Zosyn. ID following closely. He remains on IV heparin. Patient continues with TPN. He remains on IV Lasix 40 mg every 8 hours. Chest x-ray today reveals CHF. Labs today white blood cell count 14.8, hemoglobin 7.1, BUN of 42 creatinine of 1.31 sodium of 143. 08/21/2024 Patient is seen in follow-up remains in the ICU on mechanical ventilation. Per nursing staff attempting to wean and extubate although unsuccessful and patient is currently maintained on mechanical ventilation FiO2 is 50% with a PEEP of 5. Patient is to continue on IV Lasix and would recommend continuing as there is significant overload noted. Patient only on fluconazole and will repeat blood cultures also reinitiate Zosyn as patient is having elevated white count and low-grade temps. 08/22/2024 Patient seen in the ICU remains on mechanical ventilation with an FiO2 of 50% and PEEP is 5. White count is trending down at 14 today and patient is afebrile. Patient is continued on Zosyn and also fluconazole although will transition to Eraxis. Patient continues on Lasix continues with significant swelling although somewhat improved. Family at bedside with questions and concerns that were answered. Will attempt sedation trials to monitor mentation with no plans of extubation at this time. 08/23/2024 Patient continues in the ICU on mechanical ventilation and PEEP is at 5 with an FiO2 of 30%. Patient is waking up on sedation trials and per at the bedside has been biting on the OG tube although not following commands. No plans of extubation at this time. Patient is continued on Zosyn and also Eraxis and white count is elevated above 14 and having fevers overnight. Patient will continue on antibiotics and follow-up on cultures along with repeat CBC in AM. Patient continues on IV Lasix showing some improvement in of upper lower extremities although continues to be significantly edematous. 08/24/2024 Patient is seen this morning in the ICU recently per nursing staff had been pulling on ET tube and has been extubated per pulmonary ash conveyor operator maintained on 4 L via nasal cannula. Patient continues on low-dose pressor support and being weaned. Patient to continue on Zosyn along with Eraxis and awaiting white count to improve. White count today is further elevated at 16 and patient did have low-grade temps this morning although improved from yesterday. Patient is currently maintained on TPN and will continue for now per surgery. Follow-up on repeat labs in the AM. Unable to complete a review of systems as patient is currently extubated and somewhat sedated PHYSICAL EXAMINATION: GENERAL: The patient is sedated, currently extubated this morning maintained on 4 L. Well developed, ill-appearing, elderly appearing, obese. Pale HEENT: Pupils are round and equally reacting to light. EOMI. No scleral icterus. No conjunctival pallor. Normocephalic, atraumatic. No pharyngeal erythema. No thyromegaly. CARDIOVASCULAR: S1 and S2 muffled PULMONARY: Diminished breath sounds bilaterally with some faint crackles noted ABDOMEN: Soft, obese, nontender, nondistended, Hypoactive bowel sounds. No palpable organomegaly. Mid line incision intact no surrounding erythema or drainage MUSCULOSKELETAL: No joint swelling or deformity. EXTREMITIES: No cyanosis, clubbing, or pedal edema. Upper and lower generalized edema, 1+ pitting NEUROLOGICAL: Gross neurological examination did not reveal any focal deficits. Diffusely weak SKIN: No rashes. Pale Assessment: Perforated gastric ulcer pneumoperitoneum postoperative day #10 surgical repair with Kiet patch Septic shock secondary to above Acute kidney injury due to acute tubular necrosis from infection Atrial fibrillation with rapid ventricular rate, currently rate controlled Acute CHF exacerbation, systolic dysfunction EF 35-40%. History of atrial fibrillation, maintained on oral anticoagulant outpatient, currently on heparin Diabetes mellitus type 2, uncontrolled with hyperglycemia History of stage III pancreatic cancer History hypertension Hyperlipidemia Obesity with a BMI of 35.1 VTE prophylaxis continues on IV heparin GI prophylaxis Full code Plan: Patient continues in the ICU with multiple consultations following and per nursing staff had been pulling on ET tube this morning and after further assessment and blood gas analysis, pulmonary ash conveyor operator recommending extubation patient is currently maintained on 4 L. Patient is extremely lethargic although is arousable and following commands patient continues on pressor support along with IV heparin. Cardiology is following White count remains elevated and patient having fevers overnight again. Recommend repeat labs and will follow-up on repeat labs, continue Zosyn and Eraxis. Consider infectious disease consult Continue IV Lasix and monitor kidney functions closely as patient is significantly edematous Recommend aspiration precautions with head of the bed elevated 30 to 45 degrees at all times Continue TPN with pharmacy and dietary to dose Replace electrolytes per protocol Continue monitoring Accu-Cheks before meals and at bedtime and will adjust insulins as blood sugars have been elevated. Patient is also on long-acting twice daily which has been increased. We will continue to follow with general surgery during hospitalization. Thank you for this consultation. Overall prognosis is guarded at this time The impression and plan of care has been dictated by Chinyere Pruitt, Nurse Practitioner as directed. Dr. Miky MD I have performed a history and physical examination and medical decision making of this patient, discussed the same with the dictator, and agree with the dictators assessment and plan as written, documented as a scribe. Based on total visit time, I have performed more than 50% of this visit. Objective - Vital Signs Vital signs: Vital Signs Temp 97.9 F 08/25/24 04:00 Pulse 115 H 08/25/24 05:15 Resp 26 H 08/25/24 05:15 BP 118/83 08/25/24 05:15 Pulse Ox 96 08/25/24 05:15 FiO2 4 08/25/24 00:00 Intake & Output 08/24/24 08/24/24 08/25/24 06:59 18:59 06:59 Intake Total 3174.738 2703.945 628.020 Output Total 3300 1690 1785 Balance -349.384 8386.945 -1156.980 Weight 109 kg 105 kg Intake: IV 1440 1365 385 .9NS KVO 130 110 100 ACETAMINOPHEN IV (For NPO 100 100 100 ) 1,000 mg In Empty Bag 1 bag @ 400 mls/hr IVPB Q6HR PRN Rx#:[id number] Anidulafungin 100 mg In 100 Sodium Chloride 0.9% 100 ml @ 84 mls/hr IVPB DAILY @2000 [facility] Rx#:[id number] Mvi, Adult No.4 with Vit 960 880 160 K 10 ml Trace (Conc-1Ml/ Dose) 1 ml Sodium Acetate 16 meq Potassium Acetate 14 meq Potassium Phosphate 21 mmol Magnesium Sulfate gm 0.75 gm Calcium Gluconate 1 gm In Amino Acids 5 %/ Dextrose 20 % 1,000 ml @ 75 mls/hr IV .[id number] [facility] Rx#:[id number] Piperacillin-Tazobactam 3 150 175 25 .375 gm In Sodium Chloride 0.9% 100 ml @ 25 mls/hr IVPB Q8HR [facility] Rx# :[id number] Potassium Chloride 10 meq 100 In Water For Injection 1 100ml.bag @ 100 mls/hr IVPB Q1H [facility] Rx#: [id number] Intake, IV Titration 1586.255 1954.945 3.020 Amount Dexmedetomidine/0.9% NaCl 161.931 100.000 3.020 (Pmx) 400 mcg In Empty Bag 1 bag @ 0.2 MCG/KG/HR 5.575 mls/hr IV .[id number] [facility] Rx#:[id number] Heparin Sod,Pork in 0.45% 396.555 147.776 NaCl 25,000 unit In 0.45 % NaCl 1 250ml.bag @ 6. 826 UNITS/KG/HR 10 mls/hr IV .Q24H [facility] Rx#: [id number] Mvi, Adult No.4 with Vit 1051.5 K 10 ml Trace (Conc-1Ml/ Dose) 1 ml Sodium Acetate 22 meq Potassium Phosphate 9 mmol Magnesium Sulfate gm 0.75 gm Potassium Chloride 30 meq Calcium Gluconate 1 gm In Amino Acid 5%-D15w 1,000 ml @ 80 mls/hr IV . BY DURATION [facility] Rx#: [id number] Norepinephrine 4 mg In 135.752 39.669 0 Sodium Chloride 0.9% 250 ml @ 0.03 MCG/KG/MIN 12. 55 mls/hr IV .[id number] [facility] Rx#:[id number] Sodium Acetate 22 meq 1040.5 Potassium Phosphate 9 mmol Magnesium Sulfate gm 0.75 gm Potassium Chloride 30 meq Calcium Gluconate 1 gm In Amino Acid 5%-D15w 1,000 ml @ 80 mls/hr IV .BY DURATION [facility] Rx#:[id number] TPN/PPN 240 Mvi, Adult No.4 with Vit 240 K 10 ml Trace (Conc-1Ml/ Dose) 1 ml Sodium Acetate 16 meq Potassium Acetate 14 meq Potassium Phosphate 21 mmol Magnesium Sulfate gm 0.75 gm Calcium Gluconate 1 gm In Amino Acids 5 %/ Dextrose 20 % 1,000 ml @ 75 mls/hr IV .[id number] [facility] Rx#:[id number] Output: Drainage 20 10 Right abdominal ABDIAZIZ drain 20 10 Urine 3280 1690 1775 Other: Voiding Method Indwelling Catheter Indwelling Catheter Indwelling Catheter # Bowel Movements 1 ABP, PAP, CO, CI - Last Documented Arterial Blood Pressure 126/54 - Labs CBC & Chem 7: 08/25/24 02:48 08/25/24 02:48 Labs: Abnormal Lab Results - Last 24 Hours (Table) 08/24/24 08/24/24 08/24/24 Range/Units 03:11 05:23 05:28 WBC (3.8-10.6) k/uL RBC (4.30-5.90) m/uL Hgb (13.0-17.5) gm/dL Hct (39.0-53.0) % MCHC (31.0-37.0) g/dL RDW (11.5-15.5) % APTT (22.0-30.0) sec ABG pH 7.50 H (7.35-7.45) ABG pCO2 32 L (35-45) mmHg ABG pO2 68 L (83-108) mmHg ABG Total CO2 26 H (19-24) mmol/L Hemoglobin 8.8 L (13.0-17.5) gm/dL Sodium 135 L 135 L (137-145) mmol/L BUN 46 H 47 H (9-20) mg/dL Creatinine 1.26 H (0.66-1.25) mg/dL Glucose 219 H 238 H (74-99) mg/dL POC Glucose (mg/dL) (70-110) mg/dL Calcium 8.3 L 7.8 L (8.4-10.2) mg/dL Phosphorus 4.7 H (2.5-4.5) mg/dL 08/24/24 08/24/24 08/24/24 Range/Units 06:00 10:39 11:57 WBC (3.8-10.6) k/uL RBC (4.30-5.90) m/uL Hgb (13.0-17.5) gm/dL Hct (39.0-53.0) % MCHC (31.0-37.0) g/dL RDW (11.5-15.5) % APTT 82.1 H (22.0-30.0) sec ABG pH (7.35-7.45) ABG pCO2 (35-45) mmHg ABG pO2 (83-108) mmHg ABG Total CO2 (19-24) mmol/L Hemoglobin (13.0-17.5) gm/dL Sodium (137-145) mmol/L BUN (9-20) mg/dL Creatinine (0.66-1.25) mg/dL Glucose (74-99) mg/dL POC Glucose (mg/dL) 295 H 253 H (70-110) mg/dL Calcium (8.4-10.2) mg/dL Phosphorus (2.5-4.5) mg/dL 08/24/24 08/24/24 08/25/24 Range/Units 18:00 23:29 02:48 WBC (3.8-10.6) k/uL RBC (4.30-5.90) m/uL Hgb (13.0-17.5) gm/dL Hct (39.0-53.0) % MCHC (31.0-37.0) g/dL RDW (11.5-15.5) % APTT 63.0 H (22.0-30.0) sec ABG pH (7.35-7.45) ABG pCO2 (35-45) mmHg ABG pO2 (83-108) mmHg ABG Total CO2 (19-24) mmol/L Hemoglobin (13.0-17.5) gm/dL Sodium 135 L (137-145) mmol/L BUN 44 H (9-20) mg/dL Creatinine (0.66-1.25) mg/dL Glucose 143 H (74-99) mg/dL POC Glucose (mg/dL) 134 H (70-110) mg/dL Calcium 8.2 L (8.4-10.2) mg/dL Phosphorus (2.5-4.5) mg/dL 08/25/24 Range/Units 02:48 WBC 18.8 H (3.8-10.6) k/uL RBC 3.39 L (4.30-5.90) m/uL Hgb 8.7 L (13.0-17.5) gm/dL Hct 28.5 L (39.0-53.0) % MCHC 30.5 L (31.0-37.0) g/dL RDW 19.6 H (11.5-15.5) % APTT (22.0-30.0) sec ABG pH (7.35-7.45) ABG pCO2 (35-45) mmHg ABG pO2 (83-108) mmHg ABG Total CO2 (19-24) mmol/L Hemoglobin (13.0-17.5) gm/dL Sodium (137-145) mmol/L BUN (9-20) mg/dL Creatinine (0.66-1.25) mg/dL Glucose (74-99) mg/dL POC Glucose (mg/dL) (70-110) mg/dL Calcium (8.4-10.2) mg/dL Phosphorus (2.5-4.5) mg/dL Microbiology - Last 24 Hours (Table) 08/21/24 14:35 Blood Culture - Preliminary Blood
[2024-08-25 06:39] LABS: Glucose,Whole Blood 186 mg/dL (70-110)
[2024-08-25] MEDS: POTASSIUM CHLORIDE 10 MEQ in WATER FOR INJECTION 1 100ML.BAG IVPB SCH (06:48)
[2024-08-25 06:54] LABS: Anisocytosis (M) Present; Band Neutrophils % 11 %; Eosinophils # (M) 0.19 k/uL (0-0.7); Lymphocytes # (M) 0.56 k/uL (1.0-4.8); Monocytes # (M) 0.94 k/uL (0-1.0); Neutrophils % (M) 80 %; Nucleated Red Blood Cells 0 /100 WBC (0-0); Polychromasia Present; Target Cells Present; Total Cells Counted 100
--- NOTE | 2024-08-25 10:00 | P.PN ---
Subjective Patient seen and evaluated at bedside. Patient doing well, recently extubated, however patient is febrile and still somewhat tender in the abdomen. Objective - Vital Signs Vital signs: Vital Signs Temp 97.9 F 08/25/24 04:00 Pulse 95 08/25/24 07:51 Resp 30 H 08/25/24 07:00 BP 108/73 08/25/24 07:00 Pulse Ox 97 08/25/24 07:00 FiO2 4 08/25/24 00:00 Intake & Output 08/24/24 08/25/24 08/25/24 18:59 06:59 18:59 Intake Total 2703.945 926.752 91.115 Output Total 1690 2010 75 Balance 1013.945 -1083.248 16.115 Weight 105 kg Intake: IV 1365 405 10 .9NS KVO 110 120 10 ACETAMINOPHEN IV (For NPO 100 100 ) 1,000 mg In Empty Bag 1 bag @ 400 mls/hr IVPB Q6HR PRN Rx#:[id number] Mvi, Adult No.4 with Vit 880 160 K 10 ml Trace (Conc-1Ml/ Dose) 1 ml Sodium Acetate 16 meq Potassium Acetate 14 meq Potassium Phosphate 21 mmol Magnesium Sulfate gm 0.75 gm Calcium Gluconate 1 gm In Amino Acids 5 %/ Dextrose 20 % 1,000 ml @ 75 mls/hr IV .[id number] [facility] Rx#:[id number] Piperacillin-Tazobactam 3 175 25 .375 gm In Sodium Chloride 0.9% 100 ml @ 25 mls/hr IVPB Q8HR [facility] Rx# :[id number] Potassium Chloride 10 meq 100 In Water For Injection 1 100ml.bag @ 100 mls/hr IVPB Q1H [facility] Rx#: [id number] Intake, IV Titration 1338.945 121.752 1.115 Amount Dexmedetomidine/0.9% NaCl 100.000 100.000 1.115 (Pmx) 400 mcg In Empty Bag 1 bag @ 0.2 MCG/KG/HR 5.575 mls/hr IV .[id number] [facility] Rx#:[id number] Heparin Sod,Pork in 0.45% 147.776 NaCl 25,000 unit In 0.45 % NaCl 1 250ml.bag @ 6. 826 UNITS/KG/HR 10 mls/hr IV .Q24H [facility] Rx#: [id number] Mvi, Adult No.4 with Vit 1051.5 K 10 ml Trace (Conc-1Ml/ Dose) 1 ml Sodium Acetate 22 meq Potassium Phosphate 9 mmol Magnesium Sulfate gm 0.75 gm Potassium Chloride 30 meq Calcium Gluconate 1 gm In Amino Acid 5%-D15w 1,000 ml @ 80 mls/hr IV . BY DURATION [facility] Rx#: [id number] Norepinephrine 4 mg In 39.669 21.752 Sodium Chloride 0.9% 250 ml @ 0.03 MCG/KG/MIN 12. 55 mls/hr IV .[id number] [facility] Rx#:[id number] TPN/PPN 400 80 Mvi, Adult No.4 with Vit 400 80 K 10 ml Trace (Conc-1Ml/ Dose) 1 ml Sodium Acetate 16 meq Potassium Acetate 14 meq Potassium Phosphate 21 mmol Magnesium Sulfate gm 0.75 gm Calcium Gluconate 1 gm In Amino Acids 5 %/ Dextrose 20 % 1,000 ml @ 75 mls/hr IV .[id number] [facility] Rx#:[id number] Output: Drainage 10 Right abdominal SIS drain 10 Urine 1690 2000 75 Other: Voiding Method Indwelling Catheter Indwelling Catheter # Bowel Movements 1 ABP, PAP, CO, CI - Last Documented Arterial Blood Pressure 126/54 - Exam gen: nad cv: rrr pul: non labored on vent abd: soft, distended, tenderness to palpation c/d/i sis drain serosang - Labs CBC & Chem 7: 08/25/24 02:48 08/25/24 02:48 Labs: Abnormal Lab Results - Last 24 Hours (Table) 08/24/24 08/24/24 08/24/24 Range/Units 10:39 11:57 18:00 WBC (3.8-10.6) k/uL RBC (4.30-5.90) m/uL Hgb (13.0-17.5) gm/dL Hct (39.0-53.0) % MCHC (31.0-37.0) g/dL RDW (11.5-15.5) % Neutrophils # (Manual) (1.3-7.7) k/uL Lymphocytes # (Manual) (1.0-4.8) k/uL APTT 82.1 H 63.0 H (22.0-30.0) sec Sodium (137-145) mmol/L BUN (9-20) mg/dL Glucose (74-99) mg/dL POC Glucose (mg/dL) 253 H (70-110) mg/dL Calcium (8.4-10.2) mg/dL 08/24/24 08/25/24 08/25/24 Range/Units 23:29 02:48 02:48 WBC 18.8 H (3.8-10.6) k/uL RBC 3.39 L (4.30-5.90) m/uL Hgb 8.7 L (13.0-17.5) gm/dL Hct 28.5 L (39.0-53.0) % MCHC 30.5 L (31.0-37.0) g/dL RDW 19.6 H (11.5-15.5) % Neutrophils # (Manual) 17.10 H (1.3-7.7) k/uL Lymphocytes # (Manual) 0.56 L (1.0-4.8) k/uL APTT (22.0-30.0) sec Sodium 135 L (137-145) mmol/L BUN 44 H (9-20) mg/dL Glucose 143 H (74-99) mg/dL POC Glucose (mg/dL) 134 H (70-110) mg/dL Calcium 8.2 L (8.4-10.2) mg/dL 08/25/24 08/25/24 Range/Units 06:37 08:11 WBC (3.8-10.6) k/uL RBC (4.30-5.90) m/uL Hgb (13.0-17.5) gm/dL Hct (39.0-53.0) % MCHC (31.0-37.0) g/dL RDW (11.5-15.5) % Neutrophils # (Manual) (1.3-7.7) k/uL Lymphocytes # (Manual) (1.0-4.8) k/uL APTT 47.2 H (22.0-30.0) sec Sodium (137-145) mmol/L BUN (9-20) mg/dL Glucose (74-99) mg/dL POC Glucose (mg/dL) 186 H (70-110) mg/dL Calcium (8.4-10.2) mg/dL Microbiology - Last 24 Hours (Table) 08/21/24 14:35 Blood Culture - Preliminary Blood Assessment and Plan Assessment: 1. Perforated gastric ulcer status post exploratory laparotomy and modified Kiet patch 2. Hypokalemia improved 3. A-fib on IV heparin PLAN: -Recommend upper GI after patient is more awake -Also tomorrow will consider CT with oral Gastrografin contrast to further investigate source of fevers -Continue TPN for nutrition support -Continue ICU management -Continue supportive care -Continue NG tube to low intermittent suction -Keep n.p.o. -Continue antibiotics -Continue to monitor SIS drain output -Continue IV Protonix -Continue to monitor hemoglobin -Continue IV Tylenol for pain management and fevers discussed w/ icu, ok with ctap w/ oral contrast to evaluate intra-abdominal source of infection as well as test the integrity of repair. Román Lucero DO Physician [employer] Builder note has been reviewed by physician. Signing provider agrees with the documented findings, assessment, and plan of care. Time with Patient: Less than 30
[2024-08-25 11:14] LABS: Glucose,Whole Blood 177 mg/dL (70-110)
--- NOTE | 2024-08-25 11:37 | XR ---
EXAMINATION TYPE: XR chest 1V portable DATE OF EXAM: 08/25/2024 11:22 AM COMPARISON: Chest radiograph from one day prior. CLINICAL INDICATION: Male, 79 years old with history of Shortness of breath; [facility] TECHNIQUE: XR chest 1V portable Frontal view of the chest. FINDINGS: Lungs/Pleura: No evidence of focal consolidation or pneumothorax. Blunting of the costophrenic angles is present. Pulmonary vascularity: Pulmonary vascular congestion. Heart/mediastinum: Cardiomediastinal silhouette is enlarged. Musculoskeletal: No acute osseous pathology. Other findings: None Lines/Tubes: Nasogastric tube with its distal tip and side-port projecting under the diaphragm. Right central venous catheter with distal tip at the cavoatrial junction. IMPRESSION: Cardiomegaly, pulmonary vascular congestion and bilateral pleural effusions. Correlate with BNP for c ongestive heart failure. [facility], , 08/25/2024 11:35 AM
--- NOTE | 2024-08-25 12:56 | US ---
EXAMINATION TYPE: US chest DATE OF EXAM: 08/25/2024 COMPARISON: XR(Today) CLINICAL INDICATION: Male, 79 years old with history of right pleural effusion; TECHNIQUE: Grayscale imaging of the chest. Targeted ultrasound of the posterior lower right hemithor ax FINDINGS: EXAM MEASUREMENTS: Right Pleural Effusion pocket size: No fluid seen on today's study Pulmonologists are able to review the images in the patient?s EMR. IMPRESSIONS: No significant fluid identified [facility], , 08/25/2024 12:54 PM
--- NOTE | 2024-08-25 13:04 | P.PN ---
Subjective Progress Note Date: 08/25/24 Principal diagnosis: Acute pneumoperitoneum secondary to perforated gastric ulcer status post exploratory laparotomy, abdominal washout and modified Kiet patch procedure postoperative day #13 On 08/14/2024, this patient is being seen for a follow-up. The patient is postop day #2. The patient was found to have a perforated gastric ulcer with pneumoperitoneum. The patient underwent expected laparotomy abdominal washout and a modified Kiet patch. The patient is postop day #2. This morning, the patient remains intubated on mechanical ventilator. The patient on propofol running at 40 mcg/kg/min. Remains on active drinking at 125 cc an hour. Remains on norepinephrine running at 0.11 mcg/kg/min and vasopressin physiologic dose. On a mechanical ventilator, assist-control mode with rate of 18, tidal volume of 500, FiO2 30% with a PEEP of 5. Blood gas with a pH of 7.38 with a pCO2 of 33 and pO2 of 79. The patient's rhythm is atrial fibrillation. The patient has a ABDIAZIZ drain output is minimal at this point, the patient is covered with a combination of Zosyn and Diflucan. The patient received a total of 2 units of packed RBC postop. Blood work from today shows a WBC count of 26, hemoglobin 9.5 and a platelet count of 457. Sodium is at 139, BUN is 18 with a creatinine of 2.5 and a BUN of 71. Serum bicarbonate of 18. The patient does have an underlying acute on top of chronic kidney disease. He is febrile with a temperature of 101.7. He remains tachycardic. On 08/15/2024, the patient is being seen for a follow-up. This morning, the patient is still intubated on the mechanical ventilator. The patient sedated on propofol which is running at 40 mcg/kg/min. Remains on a mechanical ventilator assist-control mode at rate of 18, tidal volume of 500, FiO2 of 30% with a PEEP of 5. Blood gas from today showed a pH of 7.45 with a pCO2 of 35 and pO2 of 75. Chest x-ray from today shows ET tube in adequate location. Findings are consistent with CHF and volume overload and some worsening in the left basilar opacity/atelectasis. Hemodynamically, the patient remains in atrial fibrillation. Heart rate is under better control. The patient is on Cardizem drip that this has been weaned down to 2.5 mg an hour and the patient remains on IV heparin this was tolerated yesterday. At the same time, the patient remains on norepinephrine running at 0.1 mcg/kg/min and vasopressin physiologic dose. Lactated Ringer's running at a rate of 125 cc an hour and the patient is a positive fluid balance of 2.4 L. ABDIAZIZ output is minimal in the order of 5 to 10 cc over the past 12 hours. NG output is also minimal. Rest of the blood work showed a white cell count of 27.7, hemoglobin 8.5 and a platelet count of 407. The sodium levels at 141, BUN 58 with a creatinine of 2.1. Serum bicarb is at 23 and the chloride is 109. Glucose is 870. The blood cultures are still negative.Echocardiogram showed a impaired LV function with ejection fraction of 35 to 40%. Right ventricular systolic pressure is at 54. 08/16/2024, patient is being seen for a follow-up in the intensive care unit. This morning, the patient remains intubated on mechanical ventilator. The patient sedated on propofol running at 40 mcg/kg/min. The patient is on assist- control mode with rate of 18, tidal volume of 500, FiO2 30% with a PEEP of 5. Blood gas showed a pH of 7.46 with a pCO2 of 37 and pO2 of 71. Chest x-ray from this morning shows worsening pulmonary vascular congestion and cardiomegaly with development of bilateral pleural effusions. There are some atelectatic changes in lung bases bilaterally. The patient was started on TPN which is currently running at 30 cc an hour. IV fluids are currently at KVO. Output from the NG tube is minimal in the order of 10 cc over the past 8 hours, output from the ABDIAZIZ is minimal in the order of 10 cc an hour. The patient is in atrial fibrillation. The patient is having occasional PVCs. Remains on Cardizem drip at 2.5 mg an hour and the patient is also on IV heparin. Norepinephrine is running at 0.09 mcg/kg/min. The white cell count is improved and is currently down to 20 with a hemoglobin of 8 and a platelet count of 345. BUN is 49 with a creatinine of 1.87. Sodium levels at 142, potassium level is at 3.7, chloride is 110. Remains on a combination of Zosyn and Diflucan. On 08/17/2024, patient is being seen for a follow-up. This morning, the patient remains on propofol which is running at 40 mcg/kg/min. The patient was given sedation holiday yesterday. This was reported as the patient started having significant activities. The cardiac rhythm remains atrial fibrillation with controlled rate. This morning, the patient is calm and comfortable on propofol. He is on assist-control mode of mechanical ventilation at rate of 14, tidal volume of 500, FiO2 of 30% with a PEEP of 5. IV fluids are currently at KVO and the patient remains on TPN at a rate of 50 cc an hour. The patient is on low-dose norepinephrine running at 0.01 mcg/kg/min. The blood gas showed a pH of 7.46 with a pCO2 35 and pO2 of 70. Chest x-ray shows atelectatic changes and bilateral pleural effusions. NG tube output is in order of 100 cc over the past 8 hours. ABDIAZIZ output is in the order of 60 cc over the past 12 hours. The patient remains on IV heparin. The patient is off the Cardizem drip for now. The rest of the blood work shows a white cell count of 18, hemoglobin of 7.5 and a platelet count of 305. The sodium levels at 142, potassium level 3.8, chloride 112 and the bicarbonate is a 24. BUN 39 and a creatinine of 1.6. Blood sugars are elevated and the Lantus insulin dose will be further adjusted. No fever. No other significant events. Abdominal wound is dry clean and intact. 08/18/2024, the patient is being seen for a follow-up. She had another sedation holiday because of tachypnea and restlessness and asynchrony with a mechanical ventilator. This morning, he is on propofol. Will do a gradual propofol wean and use Precedex if needed. He is currently on propofol running at 20 mcg/kg/min. Remains on assist-control mode at rate of 14, tidal volume of 500, FiO2 of 30% with a PEEP of 5. Blood gas showed a pH of 7.43 with a pCO2 of 39 and pO2 of 88. Chest x-ray is unchanged and there is atelectatic change in the fusion lung base bilaterally. Remains on TPN for nutritional support with rate of 50 cc an hour. IV fluids are KVO. NG output is in the order of 200 cc over the past 24 hours. ABDIAZIZ output is in the order of 45 cc. Remains on norepinephrine at a dose of 0.01 mcg/kg/min. The fluid balance is -1.2 L over the past 24 hours and the patient remains on IV Lasix 40 mg every 12 hours. The patient is also on Zosyn and Diflucan. Afebrile. Hemodynamically stable with low-dose pressors. The white cell count is 18, hemoglobin 7.4 and a platelet count of 335. The BUN is 38 with a creatinine of 1.4. Sodium is at 142, bicarb is at 24. Blood sugars at 230 and Lantus dose has been modified. No other significant events overnight. On 08/19/2024, the patient is being seen for a follow-up. Remains intubated on mechanical ventilatory patient has been off propofol for the past 24 hours. He is opening his eyes and moving. Nevertheless, is not following commands yet. Bobbi coronado continues to be quite sedated. As such, no weaning trials have been done awaiting further improvement in his mentation. Cardiac rhythm is atrial fibrillation and the patient remains on IV heparin. Rate is controlled. Remains on low-dose norepinephrine which is running at 0.05 mcg/kg/min. He is on TPN at rate of 80 cc an hour. He is on the IV Lasix 40 mg every 12 hours and the fluid balance -238 cc over the past 24 hours. He is on the mechanical ventilator assist-control mode at rate of 14, tidal volume of 500, FiO2 of 30% with a PEEP of 5. Blood gas showed a pH of 7.43 with a pCO2 of 39 and pO2 of 95. NG tube output has been 50 cc over the past 12 hours. ABDIAZIZ output is minimal. Blood work from today shows a white cell count of 17, hemoglobin 7.3 and a platelet count of 319. Sodium is at 143, BUN 37 and the creatinine is at 1.45. Remains on Zosyn and Diflucan. Blood sugar control with Lantus. On 08/20/2024, the patient is off sedation the patient has been off propofol for the past 48 hours. He is still not fully awake. He moves around. Withdraws to painful stimulation. At times, he gets slightly restless. Nevertheless, he is not awake and he is not following any commands and his level of alertness remains quite diminished. For that reason, I recommended a CAT scan of the head to investigate ongoing altered mentation. The patient remains on the mechanical ventilator assist-control mode rate of 14, tidal volume of 500, FiO2 30% with a PEEP of 5. Blood gas showed a pH of 7.44 with pCO2 41 and pO2 of 97. Fluid balance is negative to 11 cc over the past 24 hours. Hemoglobin stable at 7.1 and the creatinine is down to 1.3. The patient remains on low-dose norepinephrine running at 0.02 mcg/kg/min. NG tube output is in the order of 150 cc over the past 24 hours and the patient was started on TPN for additional support. IV fluids are currently at KVO. The patient continues to be in atrial fibrillation with a controlled rate. The patient is having frequent ectopies. The patient remains on IV heparin. Antibiotic coverage include Zosyn and antico agulation with Diflucan. He is being diuresed with IV Lasix 40 mg p.o. 12 hours and a dose will be modified. The patient is on Lantus insulin 20 units twice a day and sliding scale coverage. No other significant events overnight. Patient was evaluated today on 08/21/2024, remains in the ICU intubated and mechanically ventilated, on assist-control rate of 14 tidal volume 500 FiO2 30% and PEEP of 5. Patient is now postoperative day #8, his ABG showed a pO2 of 136 pCO2 4 0 pH of 7.47 hence I did not make any ventilator changes. Patient remains on TPN, he is off propofol today, and I would like to give him a trial of weaning if we need to place on Precedex, will keep placed on Precedex, and give the patient a trial of weaning possibly today. We tried this today, and the patient became extremely agitated restless, he had to be placed back on mechanical ventilation/assist-control rate, he was tried on a pressure support of 10 and CPAP, tolerated for less than half an hour. But then as he got agitated patient required Dilaudid, and now I am recommending Precedex trial on this patient. His hemoglobin today is 6.9, hence he will receive 1 unit of packed RBCs. Remains on Zosyn and Diflucan, remains on Lasix 40 mg IV push every 8 hours. His ABDIAZIZ drain is showing minimal drainage, CT of the abdomen is negative. Patient is now postoperative day #8, had a perforated gastric ulcer. The goal today is to hopefully address weaning, his chest x-ray shows a good sized right-sided pleural effusion, may eventually require thoracentesis. Continues to have leukocytosis with WC BC count of 13.7 hemoglobin 6.9 basic metabolic profile is normal bicarb is 32 BUN is 44 creatinine 1.28, steadily improving compared to creatinine of 2.55 on admission. Patient was seen today on 08/22/2024, remains in the ICU, intubated and mechanically ventilated. On assist-control rate of 14 tidal volume 500 FiO2 30% PEEP of 5 ABG showed a pO2 of 79 pCO2 37 pH of 7.48, hence patient was kept on the same vent settings, and considering the patient is calm on Precedex today, I am recommending that we give him a trial of pressure support of 12 and CPAP. If tolerated will go to a pressure support of 8 and CPAP for about half an hour and then if tolerated we could consider checking weaning parameters, ABG on pressure support of 8 and CPAP, and if he continues to do well may even proceed to extubation. His hemoglobin today is 9.1, patient received a total of 4 units of packed RBCs since this admission. Patient is still requiring norepinephrine at 0.03 mcg per kilo per minute he is also on TPN at 80 cc/h he is on heparin drip, Precedex, and off propofol. Labs were all reviewed, WBC count is 13.1 hemoglobin is 9.1. Basic metabolic profile is normal BUN is 44 creatinine 1.17, steadily improving since his admission with creatinine of 2.55 initially. Chest x-ray showed right lower lobe atelectasis and possibly a small right-sided pleural effusion Patient was seen today on 08/23/2024, remains in ICU, intubated, mechanically ventilated, he is on assist-control rate of 14 tidal volume 500 FiO2 30% PEEP of 5. Yesterday the patient tolerated about 7 hours of pressure support of 8 and CPAP, however patient had very poor weaning parameters very marginal, and he was noted to be extremely weak, and sleepy hence patient was not extubated yesterday and I will try to do the same thing today. As a matter fact patient went for 1 hour on pressure support of 10 and CPAP, did fairly well except he remains very weak, and sleepy, and I did not feel that the patient is ready to be extubated. In addition to this the patient does have a temp of 102, white count is up to 14, and debating whether to consider CT of the abdomen and pelvis, although clinically his abdominal exam seems to be relatively benign. No tenderness, no rebound, no guarding. Patient is not requiring any norepinephrine at this point, however he is on heparin he is on Precedex at 0.3 TPN at 80 mL/h, and his chest x-ray continues to show right lower lobe atelectasis and small pleural effusion. Patient is on fluconazole and Zosyn. Again abdomen is soft, and does not seem to be surgical at this point. ABG showed a pO2 of 68 pCO2 37 pH of 7.47 and this was done on a pressure support of 10 and CPAP after 1 hour. WBC count is 14.3 hemoglobin 9.8 electrolytes are normal BUN is 45 creatinine 1.32. Patient was seen today on 08/24/2024, patient remains intubated and mechanically ventilated, remains on the same vent settings including tidal volume of 500 rate 14 FiO2 30% and PEEP of 5. However as I walked in to see the patient, minutes earlier apparently the patient extubated himself, and the tube has to be ad vanced by respiratory therapy back, and it was already pulled almost 5 cm proximally. Patient is having anxiety and agitation, there is some air leak, patient is not getting his tidal volumes, hence I recommended that we proceed to extubating the patient to BiPAP. Patient is following instructions, but he seems to be generally weak and slow. He is on Precedex he is on TPN, he is also on heparin and norepinephrine is presently on hold. Reviewed his chest x-ray today, showed mostly atelectasis and small right-sided pleural effusion which may or may not require thoracentesis. Reviewed his labs, and ABG this morning showed a pO2 of 68 pCO2 32 pH of 7.50 his basic metabolic profile is normal. Creatinine 1.26, blood sugar is 238. Considering the patient was marginal for extubation and considering the event this morning, I went ahead and recommended extubating the patient to BiPAP. And this was done, patient seemed to tolerate that better than being on mechanical ventilation at this point. Patient was seen today on 08/25/2024, patient remains in the ICU very marginal and remains quite ill. He tolerated the extubation so far, but the patient is not quite ready to be transferred out of the ICU as he remains very marginal mostly with his profound weakness and unable to cough vigorously to clear his secretions. Chest x-ray continues to show right lower lobe atelectasis and pleural effusion hence I am recommending an ultrasound of the chest may consider thoracentesis on this patient. In the meantime I discussed his condition with surgery today, seem to be concerned about his abdomen and recommending CT of the abdomen pelvis with oral contrast which will be done today. Today the patient is on 4 L nasal cannula, he is on Precedex because of agitation yesterday he is on 0.3 mcg/kg/h he is also on TPN, Zosyn and Eraxis and norepinephrine is presently on hold. Ultrasound of the chest did not actually show a right-sided pocket or fluid hence no marking was placed, and I believe the findings are mostly findings of atelectasis no pleural effusion that is worth pursuing at this point. Patient is having worsening leukocytosis with WBC of 18.8 hemoglobin is 8.7 his electrolytes are normal renal profile is normal BUN is 44 creatinine 1.17 PTT is 47.2 Objective - Vital Signs Vital signs: Vital Signs Temp 98.6 F 08/25/24 08:00 Pulse 109 H 08/25/24 11:56 Resp 28 H 08/25/24 10:30 BP 134/92 08/25/24 10:15 Pulse Ox 94 L 08/25/24 10:30 FiO2 4 08/25/24 00:00 Intake & Output 08/24/24 08/25/24 08/25/24 18:59 06:59 18:59 Intake Total 2703.945 926.752 91.115 Output Total 1690 2010 345 Balance 1013.945 -1083.248 -253.885 Weight 105 kg 105 kg Intake: IV 1365 405 10 .9NS KVO 110 120 10 ACETAMINOPHEN IV (For NPO 100 100 ) 1,000 mg In Empty Bag 1 bag @ 400 mls/hr IVPB Q6HR PRN Rx#:[id number] Mvi, Adult No.4 with Vit 880 160 K 10 ml Trace (Conc-1Ml/ Dose) 1 ml Sodium Acetate 16 meq Potassium Acetate 14 meq Potassium Phosphate 21 mmol Magnesium Sulfate gm 0.75 gm Calcium Gluconate 1 gm In Amino Acids 5 %/ Dextrose 20 % 1,000 ml @ 75 mls/hr IV .[id number] [facility] Rx#:[id number] Piperacillin-Tazobactam 3 175 25 .375 gm In Sodium Chloride 0.9% 100 ml @ 25 mls/hr IVPB Q8HR [facility] Rx# :[id number] Potassium Chloride 10 meq 100 In Water For Injection 1 100ml.bag @ 100 mls/hr IVPB Q1H [facility] Rx#: [id number] Intake, IV Titration 1338.945 121.752 1.115 Amount Dexmedetomidine/0.9% NaCl 100.000 100.000 1.115 (Pmx) 400 mcg In Empty Bag 1 bag @ 0.2 MCG/KG/HR 5.575 mls/hr IV .[id number] [facility] Rx#:[id number] Heparin Sod,Pork in 0.45% 147.776 NaCl 25,000 unit In 0.45 % NaCl 1 250ml.bag @ 6. 826 UNITS/KG/HR 10 mls/hr IV .Q24H [facility] Rx#: [id number] Mvi, Adult No.4 with Vit 1051.5 K 10 ml Trace (Conc-1Ml/ Dose) 1 ml Sodium Acetate 22 meq Potassium Phosphate 9 mmol Magnesium Sulfate gm 0.75 gm Potassium Chloride 30 meq Calcium Gluconate 1 gm In Amino Acid 5%-D15w 1,000 ml @ 80 mls/hr IV . BY DURATION [facility] Rx#: [id number] Norepinephrine 4 mg In 39.669 21.752 Sodium Chloride 0.9% 250 ml @ 0.03 MCG/KG/MIN 12. 55 mls/hr IV .[id number] [facility] Rx#:[id number] TPN/PPN 400 80 Mvi, Adult No.4 with Vit 400 80 K 10 ml Trace (Conc-1Ml/ Dose) 1 ml Sodium Acetate 16 meq Potassium Acetate 14 meq Potassium Phosphate 21 mmol Magnesium Sulfate gm 0.75 gm Calcium Gluconate 1 gm In Amino Acids 5 %/ Dextrose 20 % 1,000 ml @ 75 mls/hr IV .[id number] [facility] Rx#:[id number] Output: Drainage 10 Right abdominal ABDIAZIZ drain 10 Urine 1690 2000 345 Other: Voiding Method Indwelling Catheter Indwelling Catheter # Bowel Movements 1 ABP, PAP, CO, CI - Last Documented Arterial Blood Pressure 126/54 - Exam GENERAL EXAM: Revealed 79-year-old white male on 4 L nasal cannula seems to be frail, chronically ill, generally weak HEAD: Normocephalic. EYES: PERRLA, EOMI, nonicteric NOSE: Clear with pink turbinates. Nasogastric tube remains in place THROAT: No erythema or exudates. Orogastric tube and endotracheal tube are intact. NECK: No masses, no JVD. Right IJ triple-lumen catheter in place. CHEST: No chest wall deformity. LUNGS: Diminished breath sounds, crackles at the bases. CVS: S1 and S irregular consistent with atrial fibrillation with no audible murmur, irregular rhythm. The rate is controlled. ABDOMEN: Abdominal dressing dry and intact. ABDIAZIZ drain in place. No hepatospleno megaly. No rebound, no guarding. No tenderness. NERVOUS SYSTEM: Arousable follows simple instructions but seems to be generally weak EXTREMITIES: 1+ bipedal edema, no cyanosis. - Labs CBC & Chem 7: 08/25/24 02:48 08/25/24 02:48 Labs: Abnormal Lab Results - Last 24 Hours (Table) 08/24/24 08/24/24 08/25/24 Range/Units 18:00 23:29 02:48 WBC (3.8-10.6) k/uL RBC (4.30-5.90) m/uL Hgb (13.0-17.5) gm/dL Hct (39.0-53.0) % MCHC (31.0-37.0) g/dL RDW (11.5-15.5) % Neutrophils # (Manual) (1.3-7.7) k/uL Lymphocytes # (Manual) (1.0-4.8) k/uL APTT 63.0 H (22.0-30.0) sec Sodium 135 L (137-145) mmol/L BUN 44 H (9-20) mg/dL Glucose 143 H (74-99) mg/dL POC Glucose (mg/dL) 134 H (70-110) mg/dL Calcium 8.2 L (8.4-10.2) mg/dL 08/25/24 08/25/24 08/25/24 Range/Units 02:48 06:37 08:11 WBC 18.8 H (3.8-10.6) k/uL RBC 3.39 L (4.30-5.90) m/uL Hgb 8.7 L (13.0-17.5) gm/dL Hct 28.5 L (39.0-53.0) % MCHC 30.5 L (31.0-37.0) g/dL RDW 19.6 H (11.5-15.5) % Neutrophils # (Manual) 17.10 H (1.3-7.7) k/uL Lymphocytes # (Manual) 0.56 L (1.0-4.8) k/uL APTT 47.2 H (22.0-30.0) sec Sodium (137-145) mmol/L BUN (9-20) mg/dL Glucose (74-99) mg/dL POC Glucose (mg/dL) 186 H (70-110) mg/dL Calcium (8.4-10.2) mg/dL 08/25/24 Range/Units 11:13 WBC (3.8-10.6) k/uL RBC (4.30-5.90) m/uL Hgb (13.0-17.5) gm/dL Hct (39.0-53.0) % MCHC (31.0-37.0) g/dL RDW (11.5-15.5) % Neutrophils # (Manual) (1.3-7.7) k/uL Lymphocytes # (Manual) (1.0-4.8) k/uL APTT (22.0-30.0) sec Sodium (137-145) mmol/L BUN (9-20) mg/dL Glucose (74-99) mg/dL POC Glucose (mg/dL) 177 H (70-110) mg/dL Calcium (8.4-10.2) mg/dL Microbiology - Last 24 Hours (Table) 08/21/24 14:35 Blood Culture - Preliminary Blood Assessment and Plan Assessment: Impression: Acute hypoxic respiratory failure secondary to acute surgical abdomen and abdominal sepsis with septic shock Acute pneumoperitoneum secondary to perforated gastric ulcer, status post exploratory laparotomy abdominal washout and modified Kiet patch postoperative day #13 Acute abdominal sepsis and septic shock remains on antibiotics, remains on norepinephrine at 0.03 mcg/kg/min., Remains on antibiotics including Zosyn and Diflucan Hypotension, secondary to abdominal sepsis and septic shock still requiring norepinephrine Right-sided pleural effusion and bipedal edema patient is demonstrating third spacing most likely secondary to hypoalbuminemia Severe LV dysfunction with ejection fraction of 35% Acute blood loss anemia patient received so far 2 units of packed RBCs since admission Leukocytosis secondary to abdominal sepsis Acute kidney injury secondary to sepsis and septic shock Chronic atrial fibrillation, rate controlled History of hypertension History of prostate cancer Recommendation: Agree with CT of the abdomen today Continue to monitor in the ICU, Continue antibiotics and antifungal for his abdominal sepsis Continue to hold narcotics and sedatives, but continue Precedex and titrate accordingly Continue GI and DVT prophylaxis, Continue to monitor renal status Continue Lasix Ultrasound of the chest was reviewed, no significant pleural effusion to consider thoracentesis on this patient, patient has mostly atelectasis. Continue TPN at 80 cc/h/nutritional support Continue insulin and sliding scale coverage Continue to monitor hemodynamics, use norepinephrine if necessary. Continue to monitor hemoglobin, transfuse as needed or if hemoglobin below 7 Discussed the patient's condition with surgery on the case, the plan is to proceed with CT of abdomen and pelvis Patient remains critically ill. Prognosis is poor and guarded. Critical care time is 32 minutes Time with Patient: Greater than 30
[2024-08-25] MEDS: BARIUM SULFATE 2% - 450 ML ORAL.SUSP BOTTLE PO PRN (13:06)
[2024-08-25] MEDS: [UNRECOGNIZED DRUG - REMARK] IV SCH (16:06)
--- NOTE | 2024-08-25 18:04 | CT ---
EXAMINATION TYPE: CT abdomen pelvis wo con CT DLP: 1516.4 mGycm, Automated exposure control for dose reduction was used. DATE OF EXAM: 08/25/2024 5:44 PM COMPARISON: CT abdomen pelvis 08/12/2024, PET/CT 07/13/2024, CT urogram 04/03/2024, ultrasound chest 08/25, chest radiograph 08/25/2024 CLINICAL INDICATION:Male, 79 years old with history of abdominal pain, fever,; Abdominal pain, fever. TECHNIQUE: Standard CT of the abdomen and pelvis following the administration of oral contrast. Cor onal and sagittal reformats were performed. FINDINGS: Evaluation is limited due to lack of intravenous contrast. LOWER CHEST: Trace left and small right pleural effusions. Left lower lobe patchy consolidative opaci ty with air bronchograms. Left lower lobe calcified granuloma. Patchy consolidative opacities involvi ng the right lower lobe with air bronchograms. Additional patchy nodular opacities within the visuali zed right middle lobe and right upper lobe. Cardiomegaly. No pericardial effusion. Mild coronary nathan rial calcifications. Small aortic valvular calcifications. No visualized mediastinal adenopathy. Elev ation of the right hemidiaphragm. Bilateral gynecomastia. ABDOMEN LIVER: Stable anterior right hepatic lobe 4.1 cm cyst. Diffusely hypoattenuating liver consistent wit h steatosis. GALLBLADDER AND BILE DUCTS: Unremarkable. PANCREAS: Mild atrophic. SPLEEN: Scattered calcified granulomas. ADRENAL GLANDS: Unremarkable. KIDNEYS AND URETERS: No evidence of hydronephrosis. Nonobstructive right renal calculi. Stable periph erally calcified exophytic cyst within the superior right kidney. Additional stable exophytic left re nal cyst. Right renal inferior pole exophytic 5.0 cm cyst redemonstrated. PELVIS BLADDER: Nondistended with Woody catheter in place. REPRODUCTIVE: Coarse calcifications of the prostate gland are identified. ABDOMEN & PELVIS STOMACH AND BOWEL: Enteric tube terminates appropriately within the stomach.Enteric contrast reaches the rectum. Distal colonic diverticulosis without evidence for acute diverticulitis. No extravasation of contrast. The appendix appears within normal limits. No focal bowel wall thickening or surroundin g inflammatory changes. No evidence of bowel obstruction. No extravasation of enteric contrast. PERITONEUM: No evidence of pneumoperitoneum. Trace perisplenic ascites. Resolution of previously demo nstrated pneumoperitoneum. No organized fluid collection identified. Right mid abdominal ventral wall approach surgical drain identified with distal tip terminating in the anterior midabdomen. No surrou nding fluid. VASCULATURE: Mild atherosclerotic calcifications are present throughout the abdominal aorta and its b ranches. No evidence of aortic aneurysm. MUSCULOSKELETAL: No acute osseous abnormalities. Postsurgical changes of the lumbar spine from L1 thr ough S1 with bilateral pedicle screws and rods involving L1-L2 and L5-S1. Multilevel disc spacers of the lumbar spine except for L3-L4. Multilevel degenerative disc disease. LYMPH NODES: No gross evidence for lymphadenopathy. SOFT TISSUE/ABDOMINAL WALL: Right lateral abdominal wall anasarca. Surgical changes of the midline an terior abdominal wall with skin светлана. No organized fluid collection. IMPRESSION: 1. Postsurgical changes without evidence for concerning acute intra-abdominal/pelvic process. No org anized fluid collection. 2. Colonic diverticulosis without evidence for acute diverticulitis. 3. Patchy consolidative opacities within the bilateral lower lobes with right greater than left. Smal l right and trace left pleural effusions. Additional patchy nodular opacities within the right upper and right middle lobes. Findings are concerning for multifocal pneumonia. 4. Trace perisplenic ascites. 5. Bilateral renal cysts with nonobstructive right renal calculi. [facility], , 08/25/2024 6:02 PM
[2024-08-25 18:17] LABS: Glucose,Whole Blood 154 mg/dL (70-110)
--- NOTE | 2024-08-25 18:47 | P.PN ---
Subjective Patient is seen for follow-up for acute kidney injury. Maintained on IV Lasix Serum creatinine at 1.17 mg/dL Good urine output noted. Objective - Vital Signs Vital signs: Vital Signs Temp 99.0 F 08/25/24 16:00 Pulse 92 08/25/24 18:15 Resp 28 H 08/25/24 18:15 BP 113/41 08/25/24 18:15 Pulse Ox 96 08/25/24 18:15 FiO2 4 08/25/24 00:00 Intake & Output 08/24/24 08/25/24 08/25/24 18:59 06:59 18:59 Intake Total 2703.945 9386.813 3757.244 Output Total 1690 2010 1815 Balance 1013.945 -877.579 -435.756 Weight 105 kg 105 kg Intake: IV 1365 405 835 .9NS KVO 110 120 110 ACETAMINOPHEN IV (For NPO 100 100 ) 1,000 mg In Empty Bag 1 bag @ 400 mls/hr IVPB Q6HR PRN Rx#:[id number] Mvi, Adult No.4 with Vit 880 160 725 K 10 ml Trace (Conc-1Ml/ Dose) 1 ml Sodium Acetate 16 meq Potassium Acetate 14 meq Potassium Phosphate 21 mmol Magnesium Sulfate gm 0.75 gm Calcium Gluconate 1 gm In Amino Acids 5 %/ Dextrose 20 % 1,000 ml @ 75 mls/hr IV .[id number] [facility] Rx#:[id number] Piperacillin-Tazobactam 3 175 25 .375 gm In Sodium Chloride 0.9% 100 ml @ 25 mls/hr IVPB Q8HR [facility] Rx# :[id number] Potassium Chloride 10 meq 100 In Water For Injection 1 100ml.bag @ 100 mls/hr IVPB Q1H [facility] Rx#: [id number] Intake, IV Titration 1338.945 327.421 464.244 Amount Dexmedetomidine/0.9% NaCl 100.000 100.000 53.244 (Pmx) 400 mcg In Empty Bag 1 bag @ 0.2 MCG/KG/HR 5.575 mls/hr IV .[id number] [facility] Rx#:[id number] Fat Emulsion 20% 250 ml 126 In Empty Bag 1 bag @ 21 mls/hr IV Q72H [facility] Rx#: [id number] Heparin Sod,Pork in 0.45% 147.776 205.669 NaCl 25,000 unit In 0.45 % NaCl 1 250ml.bag @ 6. 826 UNITS/KG/HR 10 mls/hr IV .Q24H [facility] Rx#: [id number] Mvi, Adult No.4 with Vit 1051.5 K 10 ml Trace (Conc-1Ml/ Dose) 1 ml Sodium Acetate 22 meq Potassium Phosphate 9 mmol Magnesium Sulfate gm 0.75 gm Potassium Chloride 30 meq Calcium Gluconate 1 gm In Amino Acid 5%-D15w 1,000 ml @ 80 mls/hr IV . BY DURATION [facility] Rx#: [id number] Norepinephrine 4 mg In 39.669 21.752 Sodium Chloride 0.9% 250 ml @ 0.03 MCG/KG/MIN 12. 55 mls/hr IV .[id number] [facility] Rx#:[id number] Piperacillin-Tazobactam 3 100 .375 gm In Sodium Chloride 0.9% 100 ml @ 25 mls/hr IVPB Q8HR [facility] Rx# :[id number] Potassium Chloride 10 meq 100 In Water For Injection 1 100ml.bag @ 100 mls/hr IVPB Q1H [facility] Rx#: [id number] Sodium Acetate 26 meq 85 Potassium Phosphate 9 mmol Magnesium Sulfate gm 0.75 gm Potassium Chloride 30 meq Calcium Gluconate 1 gm In Amino Acids 5 %/Dextrose 20 % 1 ,000 ml @ 85 mls/hr IV . BY DURATION [facility] Rx#: [id number] TPN/PPN 400 80 Mvi, Adult No.4 with Vit 400 80 K 10 ml Trace (Conc-1Ml/ Dose) 1 ml Sodium Acetate 16 meq Potassium Acetate 14 meq Potassium Phosphate 21 mmol Magnesium Sulfate gm 0.75 gm Calcium Gluconate 1 gm In Amino Acids 5 %/ Dextrose 20 % 1,000 ml @ 75 mls/hr IV .[id number] [facility] Rx#:[id number] Output: Drainage 10 40 Right abdominal ABDIAZIZ drain 10 40 Urine 1690 2000 1775 Other: Voiding Method Indwelling Catheter Indwelling Catheter Indwelling Catheter # Bowel Movements 1 ABP, PAP, CO, CI - Last Documented Arterial Blood Pressure 126/54 - Exam Patient is awake, on BiPAP Examination of the heart S1 and S2 Examination of the lungs bilateral breath sounds are heard Abdomen is dressed Examination lower extremity shows edema 1+ bilateral - Labs CBC & Chem 7: 08/25/24 02:48 08/25/24 13:37 Labs: Abnormal Lab Results - Last 24 Hours (Table) 08/24/24 08/24/24 08/25/24 Range/Units 18:00 23:29 02:48 WBC (3.8-10.6) k/uL RBC (4.30-5.90) m/uL Hgb (13.0-17.5) gm/dL Hct (39.0-53.0) % MCHC (31.0-37.0) g/dL RDW (11.5-15.5) % Neutrophils # (Manual) (1.3-7.7) k/uL Lymphocytes # (Manual) (1.0-4.8) k/uL APTT 63.0 H (22.0-30.0) sec Sodium 135 L (137-145) mmol/L BUN 44 H (9-20) mg/dL Glucose 143 H (74-99) mg/dL POC Glucose (mg/dL) 134 H (70-110) mg/dL Calcium 8.2 L (8.4-10.2) mg/dL 08/25/24 08/25/24 08/25/24 Range/Units 02:48 06:37 08:11 WBC 18.8 H (3.8-10.6) k/uL RBC 3.39 L (4.30-5.90) m/uL Hgb 8.7 L (13.0-17.5) gm/dL Hct 28.5 L (39.0-53.0) % MCHC 30.5 L (31.0-37.0) g/dL RDW 19.6 H (11.5-15.5) % Neutrophils # (Manual) 17.10 H (1.3-7.7) k/uL Lymphocytes # (Manual) 0.56 L (1.0-4.8) k/uL APTT 47.2 H (22.0-30.0) sec Sodium (137-145) mmol/L BUN (9-20) mg/dL Glucose (74-99) mg/dL POC Glucose (mg/dL) 186 H (70-110) mg/dL Calcium (8.4-10.2) mg/dL 08/25/24 08/25/24 Range/Units 11:13 18:16 WBC (3.8-10.6) k/uL RBC (4.30-5.90) m/uL Hgb (13.0-17.5) gm/dL Hct (39.0-53.0) % MCHC (31.0-37.0) g/dL RDW (11.5-15.5) % Neutrophils # (Manual) (1.3-7.7) k/uL Lymphocytes # (Manual) (1.0-4.8) k/uL APTT (22.0-30.0) sec Sodium (137-145) mmol/L BUN (9-20) mg/dL Glucose (74-99) mg/dL POC Glucose (mg/dL) 177 H 154 H (70-110) mg/dL Calcium (8.4-10.2) mg/dL Microbiology - Last 24 Hours (Table) 08/21/24 14:35 Blood Culture - Preliminary Blood Assessment and Plan Assessment: 1. Acute kidney injury secondary to ATN. Creatinine 1.5 in January 2024 and 2.5 this admission. Renal function improving. Currently being diuresed. Creatinine 1.1. Nonoliguric. No hydronephrosis noted on CT. 2. Perforated gastric ulcer with pneumoperitoneum status post ex lap with cl osure of ulcer August 13, 2024. 3. Septic shock on vasopressor support. 4. Metabolic acidosis secondary to acute kidney injury and lactic acidosis. Improved. 5. Diabetes mellitus. 6. A-fib with RVR. On oral meds. Cardiology following. 7. Volume overload. Improving with diuresis. Plan: Continue with IV Lasix Maintained on TPN Monitor electrolytes
[2024-08-25 23:09] LABS: Glucose,Whole Blood 245 mg/dL (70-110)
[2024-08-26] MEDS: DEXTROSE 5% IN WATER 100 ML with AMIODARONE 150 MG IV ONE (00:50)
[2024-08-26] MEDS: AMIODARONE 360 MG in DEXTROSE 5% IN WATER 200 ML IV ONE (01:05)
--- NOTE | 2024-08-26 02:35 | XR ---
EXAM: XR Chest, 1 View CLINICAL HISTORY: increased work of breathing TECHNIQUE: Frontal view of the chest. COMPARISON: Yesterday FINDINGS: Lungs: Moderate-large amount of airspace opacities throughout both lungs, more on the right, similar. Pleural space: Persistent bilateral pleural effusions. Mediastinum: Unremarkable. Normal mediastinal contour. Bones/joints: No acute findings. Tubes, lines and devices: Supporting tube and line are unchanged. IMPRESSION: No substantial change.
[2024-08-26 05:25] LABS: African American GFR (CKD) 67 (>60 ml/min/1.73 sqM); Anion Gap 8 mmol/L; Blood Urea Nitrogen 44 mg/dL (9-20); Calcium 8.3 mg/dL (8.4-10.2); Carbon Dioxide 25 mmol/L (22-30); Chloride 102 mmol/L (98-107); Glucose 274 mg/dL (74-99); Magnesium 2.1 mg/dL (1.6-2.3); Non-African American GFR(CKD) 58 (>60 ml/min/1.73 sqM); Phosphorus 3.7 mg/dL (2.5-4.5); Potassium 3.7 mmol/L (3.5-5.1); Sodium 135 mmol/L (137-145)
[2024-08-26 05:38] LABS: Anisocytosis Slight; HCT 29.6 % (39.0-53.0); HGB 8.7 gm/dL (13.0-17.5); Hypochromasia Marked; MCH 24.8 pg (25.0-35.0); MCHC 29.3 g/dL (31.0-37.0); MCV 84.3 fL (80.0-100.0); Mean Platelet Volume 9.3; Microcytosis Slight; Platelet Count 385 k/uL (150-450); Poikilocytosis Slight; RBC 3.51 m/uL (4.30-5.90); RDW 19.6 % (11.5-15.5); WBC 16.7 k/uL (3.8-10.6)
[2024-08-26 05:52] LABS: Glucose,Whole Blood 310 mg/dL (70-110)
[2024-08-26] MEDS: AMIODARONE 450 MG in DEXTROSE 5% IN WATER 250 ML IV SCH (05:52)
[2024-08-26] MEDS: POTASSIUM CHLORIDE 10 MEQ in WATER FOR INJECTION 1 100ML.BAG IVPB SCH (06:13)
[2024-08-26 06:35] LABS: Neutrophils % (M) 84 %
[2024-08-26 06:36] LABS: Eosinophils # (M) 0.33 k/uL (0-0.7); Lymphocytes # (M) 2.34 k/uL (1.0-4.8); Monocytes # (M) 0.17 k/uL (0-1.0); Neutrophils # (M) 14.03 k/uL (1.3-7.7); Nucleated Red Blood Cells 0 /100 WBC (0-0); Total Cells Counted 200
--- NOTE | 2024-08-26 06:46 | P.PN ---
Subjective Progress Note Date: 08/25/24 This is a 79-year-old male who was monitored in the intensive care unit. He is postoperative day #2 repair of perforated gastric ulcer with Kiet patch. He remains sedated and intubated on the mechanical ventilator. Patient has been febrile with a Tmax of 101.7 axillary in the last 24 hours. He was noted to be in atrial fibrillation with RVR and has been started on IV Cardizem. Eliquis remains on hold postsurgically. Patient continues on multiple antibiotic therapy including IV fluconazole IV Zosyn with infectious disease following closely. He is currently sedated with propofol he is requiring Levophed and vasopressin support. Blood culture remains negative so far. Labs reveal a white blood cell complement 3.7, hemoglobin 9.5, sodium 139, potassium 4.1, BUN of 31 creatinine 3.52 calcium of 6.8 chest x-ray today reveals continued CHF exacerbation and fluid overload state with no significant for 1 day earlier. Patient does have hypotensive bowel sounds. 08/15/2024 Patient is evaluated in the ICU he remains on the mechanical ventilator with PEEP of 5 and FiO2 of 30%. He is postoperative day #3 repair of perforated gastric ulcer with kiet patch. Currently sedated with propofol. Chest xray findings suggest continued CHF exacerbation fluid over load state. worsening left basilar opacity could reflect acute infiltrate and or atelectasis. Correlate clinically. White blood cell count 27.7, hgb 8.5, sodium 141, potassium 3.9, BUN 58, creatinine 2.10. Magnesium 1.8. 08/16/2024 Patient is evaluated today in the intensive care unit he is postoperative day #4 to get with Kiet patch. Patient remains sedated with propofol. He is currently intubated and on mechanical ventilator with a PEEP of 5 and FiO2 of 30%. Chest x-ray today reveals worsening CHF. His white blood cell count today is 20.9, hemoglobin 8, BUN of 49 creatinine of 1.87. Patient remains on room. He was having runs of V. tach and was taken off IV Cardizem started on an oral metoprolol on an outpatient basis. his heart rate is controlled. He continues on IV Zosyn. He remains on IV fluconazole. Blood sugars are elevated after the start of TPN. He was started on a small dose of Lantus and we will continue to monitor and make adjustments as needed. 08/17/2024 Patient is evaluated today in the ICU. He remains sedated and intubated on the mechanical ventilator. PEEP of 5 and FiO2 of 40%. Patient currently undergoing sedation holiday and has not been responsive. Patient received IV lasix x 1 and has since been started on IV lasix 40 mg [id number]. Patient remains on IV heparin. Continues on IV metoprolol and no further reports of ectopi noted. White blood cell count 18.0, hgb 7.5, BUN 39, creatinine 1.64. Blood glucose remains elevated in the 200s. Chest xray today reveals continued CHF. 08/18/2024 Patient is evaluated in follow-up in the intensive care unit. He remains sedated and intubated on mechanical ventilator. Patient is a PEEP of 5 and FiO2 of 40%. Labs today reveals white blood cell count 18.4, hgb 7.4, BUN 38, creatinine 1.45. Blood glucose in the 200s. Patient remains on IV fluconazole and IV zosyn. Remains on IV heparin. Patient on small dose of levo. Continues on TPN. Patient had low grade fever 100.1 overnight. 08/19/2024 Patient is eval seen in follow-up in the intensive care unit. He remains sedated and intubated on mechanical ventilator. He is any sedation held today and is more awake alert with spontaneous eye opening and tracking. His daughter is at the bedside. Ventilator settings were adjusted and he continues on a PEEP of 5 with an FiO2 of 30%. He remains on IV fluconazole and IV Zosyn. Chest x- ray today reveals stable findings suggestive of CHF overload state. He continues on IV Lasix which was increased to 40 mg every 8 hours. He continues on IV heparin. He is on a small dose of Levophed. 08/20/2024 Patient is evaluated in follow-up in the intensive care unit. Patient remains a sedated intubated on the mechanical ventilator his FiO2 remains at 30%. He is more awake alert and oriented. Family at the bedside. Patient continues on a course of IV fluconazole and IV Zosyn. ID following closely. He remains on IV heparin. Patient continues with TPN. He remains on IV Lasix 40 mg every 8 hours. Chest x-ray today reveals CHF. Labs today white blood cell count 14.8, hemoglobin 7.1, BUN of 42 creatinine of 1.31 sodium of 143. 08/21/2024 Patient is seen in follow-up remains in the ICU on mechanical ventilation. Per nursing staff attempting to wean and extubate although unsuccessful and patient is currently maintained on mechanical ventilation FiO2 is 50% with a PEEP of 5. Patient is to continue on IV Lasix and would recommend continuing as there is significant overload noted. Patient only on fluconazole and will repeat blood cultures also reinitiate Zosyn as patient is having elevated white count and low-grade temps. 08/22/2024 Patient seen in the ICU remains on mechanical ventilation with an FiO2 of 50% and PEEP is 5. White count is trending down at 14 today and patient is afebrile. Patient is continued on Zosyn and also fluconazole although will transition to Eraxis. Patient continues on Lasix continues with significant swelling although somewhat improved. Family at bedside with questions and concerns that were answered. Will attempt sedation trials to monitor mentation with no plans of extubation at this time. 08/23/2024 Patient continues in the ICU on mechanical ventilation and PEEP is at 5 with an FiO2 of 30%. Patient is waking up on sedation trials and per at the bedside has been biting on the OG tube although not following commands. No plans of extubation at this time. Patient is continued on Zosyn and also Eraxis and white count is elevated above 14 and having fevers overnight. Patient will continue on antibiotics and follow-up on cultures along with repeat CBC in AM. Patient continues on IV Lasix showing some improvement in of upper lower extremities although continues to be significantly edematous. 08/24/2024 Patient is seen this morning in the ICU recently per nursing staff had been pulling on ET tube and has been extubated per pulmonary lime sludge mixer maintained on 4 L via nasal cannula. Patient continues on low-dose pressor support and being weaned. Patient to continue on Zosyn along with Eraxis and awaiting white count to improve. White count today is further elevated at 16 and patient did have low-grade temps this morning although improved from yesterday. Patient is currently maintained on TPN and will continue for now per surgery. Follow-up on repeat labs in the AM. 08/25/2024 Patient is seen in follow-up in the ICU with multiple consultations following. Patient continues to have an elevated white count above 18 and has continued wit h low-grade temps. General surgery recommending CT abdomen for further evaluation which is pending at this time. Patient continues on low-dose Precedex as patient was agitated and weaning as tolerated. Pressor support currently on hold as blood pressures are minimally improved. Chest x-ray poppy nues to show pleural effusions and a chest ultrasound was ordered and pending. Continue with IV Lasix and monitor kidney functions and electrolytes closely. Replace electrolytes per protocol. Unable to complete a review of systems as patient is lethargic and somewhat sedated Active Medications Albuterol/Ipratropium (Ipratropium-Albuterol 3 Ml Neb) 3 ml INHALATION RT-Q4H [facility] Last Admin: 08/26/24 04:16 Dose: 3 ml Atorvastatin Calcium (Atorvastatin 20 Mg Tab) 20 mg PO DAILY [facility] Last Admin: 08/25/24 09:21 Dose: Not Given Barium Sulfate (Barium Sulfate 2% - 450 Ml Oral.Susp Bottle) 450 ml PO Q3HR PRN PRN Reason: CT Scan Stop: 08/26/24 12:14 Last Admin: 08/25/24 16:37 Dose: 450 ml Dextrose/Water (Dextrose 50% Syringe 50 Ml) 25 ml IVP PER PROTOCOL PRN; Protocol PRN Reason: Hypoglycemia Dextrose/Water (Dextrose 50% Syringe 50 Ml) 50 ml IVP PER PROTOCOL PRN; Protocol PRN Reason: Hypoglycemia Escitalopram Oxalate (Escitalopram 10 Mg Tab) 10 mg PO DAILY [facility] Last Admin: 08/25/24 09:21 Dose: Not Given Folic Acid (Folic Acid 1 Mg Tab) 1 mg PO DAILY [facility] Last Admin: 08/25/24 09:21 Dose: Not Given Furosemide (Furosemide 10 Mg/Ml 4 Ml Vial) 40 mg IV Q8HR [facility] Last Admin: 08/25/24 23:17 Dose: 40 mg Heparin Sodium (Porcine) (Heparin Sodium 1,000 Un/Ml (10ml Vl)) 0 unit IV PER PROTOCOL PRN; Protocol PRN Reason: Low PTT Last Admin: 08/24/24 04:52 Dose: 4,000 unit Hydromorphone HCl (Hydromorphone 0.5 Mg/0.5 Ml Syringe) 0.5 mg IVP Q4HR PRN PRN Reason: Moderate Pain (Scale 4 to 6) Last Admin: 08/22/24 00:44 Dose: 0.5 mg Hydromorphone HCl (Hydromorphone 1 Mg/Ml 1 Ml Syringe) 1 mg IVP Q4HR PRN PRN Reason: Severe Pain (Scale 7 to 10) Last Admin: 08/21/24 06:57 Dose: 1 mg Heparin Sodium/Sodium Chloride (25,000 unit/ Sodium Chloride) 250 mls @ 10 mls/hr IV .Q24H [facility]; Protocol Last Admin: 08/26/24 02:19 Dose: 12.82 units/kg/hr, 18.781 mls/hr Fat Emulsion Intravenous 250 (ml/ IV Solution) 250 mls @ 21 mls/hr IV Q72H [facility] Last Admin: 08/25/24 11:02 Dose: 21 mls/hr Dexmedetomidine HCl 400 mcg/ (IV Solution) 100 mls @ 5.575 mls/hr IV .[id number] [facility]; Protocol Last Titration: 08/26/24 06:15 Dose: 0.4 mcg/kg/hr, 11.15 mls/hr Piperacillin Sod/Tazobactam (Sod 3.375 gm/ Sodium Chloride) 100 mls @ 25 mls/hr IVPB Q8HR [facility]; Protocol Last Admin: 08/25/24 23:16 Dose: 25 mls/hr Anidulafungin 100 mg/ Sodium (Chloride) 100 mls @ 84 mls/hr IVPB DAILY@2000 [facility]; Protocol Last Admin: 08/25/24 20:27 Dose: 84 mls/hr Norepinephrine Bitartrate 4 mg (/ Sodium Chloride) 254 mls @ 12.55 mls/hr IV .[id number] [facility]; Protocol Last Admin: 08/26/24 05:01 Dose: Not Given Parenteral Vitamin Supplement 10 ml/ Zinc/Copper/Manganese/Selenium 1 ml/ Sodium Acetate 26 meq/ Potassium Phosphate 9 mmol/ Magnesium Sulfate 0.75 gm/ Potassium Chloride 30 meq/Calcium Gluconate 1 gm/ Amino Acids/Dextrose 1,053.5 mls @ 85 m ls/hr IV .BY DURATION [facility] Stop: 08/26/24 17:59 Last Admin: 08/26/24 05:46 Dose: 85 mls/hr Sodium Acetate 26 meq/Potassium Phosphate 9 mmol/Magnesium Sulfate 0.75 gm/Potassium Chloride 30 meq/Calcium Gluconate 1 gm/ Amino Acids/Dextrose 1,042.5 mls @ 85 mls/hr IV .BY DURATION [facility] Stop: 08/26/24 17:59 Last Admin: 08/25/24 16:06 Dose: 85 mls/hr Amiodarone HCl 450 mg/ (Dextrose/Water) 250 mls @ 16.667 mls/hr IV .Q15H [facility]; Protocol Stop: 08/27/24 00:29 Last Admin: 08/26/24 05:52 Dose: 0.5 mg/min, 16.667 mls/hr Potassium Chloride 10 meq/ IV (Solution) 100 mls @ 100 mls/hr IVPB Q1H [facility]; Protocol Stop: 08/26/24 08:14 Last Admin: 08/26/24 06:13 Dose: 100 mls/hr Parenteral Vitamin Supplement 10 ml/ Zinc/Copper/Manganese/Selenium 1 ml/ Sodium Acetate 32 meq/ Potassium Phosphate 9 mmol/ Magnesium Sulfate 0.75 gm/ Potassium Chloride 32 meq/Calcium Gluconate 1 gm/ Amino Acids/Dextrose 1,057.5 mls @ 85 mls/hr IV .BY DURATION [facility] Sodium Acetate 32 meq/Potassium Phosphate 9 mmol/Magnesium Sulfate 0.75 gm/Potassium Chloride 32 meq/Calcium Gluconate 1 gm/ Amino Acids/Dextrose 1 ,046.5 mls @ 85 mls/hr IV .BY DURATION [facility] Insulin Glargine (Insulin Glargine (Lantus) 100 Unit/Ml Syr) 20 unit SQ HS [facility] Last Admin: 08/25/24 20:27 Dose: 20 unit Insulin Glargine (Insulin Glargine (Lantus) 100 Unit/Ml Syr) 30 unit SQ DAILY@0700 [facility] Last Admin: 08/26/24 06:11 Dose: 30 unit Insulin Human Lispro (Insulin Lispro (Humalog) 100 Unit/Ml 10 Ml Vl) 0 unit SQ Q6HR [facility]; Protocol Last Admin: 08/26/24 05:57 Dose: 16 unit Metoprolol Tartrate (Metoprolol Tartrate 5 Mg/5 Ml Vial) 5 mg IVP Q6H [facility] Last Admin: 08/26/24 05:56 Dose: 5 mg Miscellaneous Information (Potassium Replacement Protocol 1 Each Misc) 1 each MISCELLANE DAILY PRN; Protocol PRN Reason: Per Protocol Multivitamins (Multivitamins, Thera 1 Each Tab) 1 each PO DAILY [facility] Last Admin: 08/25/24 09:22 Dose: Not Given Naloxone HCl (Naloxone 0.4 Mg/Ml 1 Ml Vial) 0.2 mg IV Q2M PRN PRN Reason: Opioid Reversal Pantoprazole Sodium (Pantoprazole 40 Mg/10 Ml Vial) 40 mg IVP BID [facility] Last Admin: 08/25/24 20:27 Dose: 40 mg Thiamine HCl (Thiamine 100 Mg Tab) 100 mg PO DAILY [facility] Last Admin: 08/25/24 09:22 Dose: Not Given Timolol Maleate (Timolol 0.5% Ophth Drops 5 Ml Btl) 1 drops BOTH EYES DAILY [facility] Last Admin: 08/25/24 09:51 Dose: 1 drops PHYSICAL EXAMINATION: GENERAL: The patient is somewhat lethargic, mildly sedated maintained on low- dose Precedex, currently on 4 L. Well developed, ill-appearing, elderly appearing, obese. Pale HEENT: Pupils are round and equally reacting to light. EOMI. No scleral icterus. No conjunctival pallor. Normocephalic, atraumatic. No pharyngeal erythema. No thyromegaly. CARDIOVASCULAR: S1 and S2 muffled PULMONARY: Diminished breath sounds bilaterally with some faint crackles noted ABDOMEN: Soft, obese, nontender, nondistended, Hypoactive bowel sounds. No palpable organomegaly. Mid line incision intact no surrounding erythema or drainage MUSCULOSKELETAL: No joint swelling or deformity. EXTREMITIES: No cyanosis, clubbing, or pedal edema. Upper and lower generalized edema, 1+ pitting NEUROLOGICAL: Gross neurological examination did not reveal any focal deficits. Diffusely weak SKIN: No rashes. Pale Assessment: Perforated gastric ulcer pneumoperitoneum postoperative day #11 surgical repair with Kiet patch Septic shock secondary to above Acute hypoxic respiratory failure secondary to assessment #1 requiring mechanical ventilation, recently extubated maintained on 4 L Acute kidney injury due to acute tubular necrosis from infection Atrial fibrillation with rapid ventricular rate, currently rate controlled Acute CHF exacerbation, systolic dysfunction EF 35-40%. History of atrial fibrillation, maintained on oral anticoagulant outpatient, currently on heparin Diabetes mellitus type 2, uncontrolled with hyperglycemia History of stage III pancreatic cancer History hypertension Hyperlipidemia Obesity with a BMI of 35.1 VTE prophylaxis continues on IV heparin GI prophylaxis Full code Plan: Patient continues in the ICU with multiple consultations following and recently extubated maintained on 4 L. Patient also continues on and is being weaned off pressor support Chest x-ray continues to show significant consolidation with concerns of pneumonia, pleural effusion and continued ongoing. Chest ultrasound was obtained to assess for possible thoracentesis although not enough at this time per pulmonary. White count remains elevated and patient having continued ongoing low-grade fevers maintained on Zosyn and Eraxis. CT abdomen pelvis is ordered and pending per surgery Continue IV Lasix and monitor kidney functions closely as patient is significantly edematous Recommend aspiration precautions with head of the bed elevated 30 to 45 degrees at all times Continue TPN with pharmacy and dietary to dose Replace electrolytes per protocol Continue monitoring Accu-Cheks before meals and at bedtime and will adjust insulins as blood sugars have been elevated. Patient is also on long-acting twice daily which has been increased. We will continue to follow with general surgery during hospitalization. Thank you for this consultation. Overall prognosis is extremely guarded at this time The impression and plan of care has been dictated by Chinyere Pruitt, Nurse Practitioner as directed. Dr. Miky MD I have performed a history and physical examination and medical decision making of this patient, discussed the same with the dictator, and agree with the dictators assessment and plan as written, documented as a scribe. Based on total visit time, I have performed more than 50% of this visit. Objective - Vital Signs Vital signs: Vital Signs Temp 99.2 F 08/26/24 04:00 Pulse 112 H 08/26/24 06:00 Resp 32 H 08/26/24 06:00 BP 121/87 08/26/24 06:00 Pulse Ox 94 L 08/26/24 06:00 FiO2 60 08/26/24 04:41 Intake & Output 08/25/24 08/25/24 08/26/24 06:59 18:59 06:59 Intake Total 3264.577 5761.077 1666.512 Output Total 2009 5276 0995 Balance -877.579 -556.923 -108.488 Weight 105 kg 105 kg 107.6 kg Intake: IV 048 259 8506 .9NS KVO 120 130 110 ACETAMINOPHEN IV (For NPO 100 ) 1,000 mg In Empty Bag 1 bag @ 400 mls/hr IVPB Q6HR PRN Rx#:[id number] Mvi, Adult No.4 with Vit 160 810 935 K 10 ml Trace (Conc-1Ml/ Dose) 1 ml Sodium Acetate 16 meq Potassium Acetate 14 meq Potassium Phosphate 21 mmol Magnesium Sulfate gm 0.75 gm Calcium Gluconate 1 gm In Amino Acids 5 %/ Dextrose 20 % 1,000 ml @ 75 mls/hr IV .[id number] [facility] Rx#:[id number] Piperacillin-Tazobactam 3 25 .375 gm In Sodium Chloride 0.9% 100 ml @ 25 mls/hr IVPB Q8HR [facility] Rx# :[id number] Intake, IV Titration 327.421 638.077 421.512 Amount Dexmedetomidine/0.9% NaCl 100.000 100.077 51.059 (Pmx) 400 mcg In Empty Bag 1 bag @ 0.2 MCG/KG/HR 5.575 mls/hr IV .[id number] [facility] Rx#:[id number] Fat Emulsion 20% 250 ml 168 126 In Empty Bag 1 bag @ 21 mls/hr IV Q72H [facility] Rx#: [id number] Heparin Sod,Pork in 0.45% 205.669 244.453 NaCl 25,000 unit In 0.45 % NaCl 1 250ml.bag @ 6. 826 UNITS/KG/HR 10 mls/hr IV .Q24H [facility] Rx#: [id number] Norepinephrine 4 mg In 21.752 Sodium Chloride 0.9% 250 ml @ 0.03 MCG/KG/MIN 12. 55 mls/hr IV .[id number] [facility] Rx#:[id number] Piperacillin-Tazobactam 3 100 .375 gm In Sodium Chloride 0.9% 100 ml @ 25 mls/hr IVPB Q8HR [facility] Rx# :[id number] Potassium Chloride 10 meq 100 In Water For Injection 1 100ml.bag @ 100 mls/hr IVPB Q1H [facility] Rx#: [id number] Sodium Acetate 26 meq 170 Potassium Phosphate 9 mmol Magnesium Sulfate gm 0.75 gm Potassium Chloride 30 meq Calcium Gluconate 1 gm In Amino Acids 5 %/Dextrose 20 % 1 ,000 ml @ 85 mls/hr IV . BY DURATION [facility] Rx#: [id number] Tube Feeding 110 TPN/PPN 400 80 Mvi, Adult No.4 with Vit 400 80 K 10 ml Trace (Conc-1Ml/ Dose) 1 ml Sodium Acetate 16 meq Potassium Acetate 14 meq Potassium Phosphate 21 mmol Magnesium Sulfate gm 0.75 gm Calcium Gluconate 1 gm In Amino Acids 5 %/ Dextrose 20 % 1,000 ml @ 75 mls/hr IV .[id number] [facility] Rx#:[id number] Other 90 Output: Drainage 10 40 Right abdominal ABDIAZIZ drain 10 40 Urine 2000 [id number] Other: Voiding Method Indwelling Catheter Indwelling Catheter Indwelling Catheter # Bowel Movements 1 1 ABP, PAP, CO, CI - Last Documented Arterial Blood Pressure 126/54 - Labs CBC & Chem 7: 08/26/24 03:59 08/26/24 03:59 Labs: Abnormal Lab Results - Last 24 Hours (Table) 08/25/24 08/25/24 08/25/24 Range/Units 02:48 06:37 08:11 WBC (3.8-10.6) k/uL RBC (4.30-5.90) m/uL Hgb (13.0-17.5) gm/dL Hct (39.0-53.0) % MCH (25.0-35.0) pg MCHC (31.0-37.0) g/dL RDW (11.5-15.5) % Neutrophils # (Manual) 17.10 H (1.3-7.7) k/uL Lymphocytes # (Manual) 0.56 L (1.0-4.8) k/uL APTT 47.2 H (22.0-30.0) sec Sodium (137-145) mmol/L BUN (9-20) mg/dL Glucose (74-99) mg/dL POC Glucose (mg/dL) 186 H (70-110) mg/dL Calcium (8.4-10.2) mg/dL 08/25/24 08/25/24 08/25/24 Range/Units 11:13 18:16 23:08 WBC (3.8-10.6) k/uL RBC (4.30-5.90) m/uL Hgb (13.0-17.5) gm/dL Hct (39.0-53.0) % MCH (25.0-35.0) pg MCHC (31.0-37.0) g/dL RDW (11.5-15.5) % Neutrophils # (Manual) (1.3-7.7) k/uL Lymphocytes # (Manual) (1.0-4.8) k/uL APTT (22.0-30.0) sec Sodium (137-145) mmol/L BUN (9-20) mg/dL Glucose (74-99) mg/dL POC Glucose (mg/dL) 177 H 154 H 245 H (70-110) mg/dL Calcium (8.4-10.2) mg/dL 08/26/24 08/26/24 08/26/24 Range/Units 03:59 03:59 05:51 WBC 16.7 H (3.8-10.6) k/uL RBC 3.51 L (4.30-5.90) m/uL Hgb 8.7 L (13.0-17.5) gm/dL Hct 29.6 L (39.0-53.0) % MCH 24.8 L (25.0-35.0) pg MCHC 29.3 L (31.0-37.0) g/dL RDW 19.6 H (11.5-15.5) % Neutrophils # (Manual) 14.03 H (1.3-7.7) k/uL Lymphocytes # (Manual) (1.0-4.8) k/uL APTT (22.0-30.0) sec Sodium 135 L (137-145) mmol/L BUN 44 H (9-20) mg/dL Glucose 274 H (74-99) mg/dL POC Glucose (mg/dL) 310 H (70-110) mg/dL Calcium 8.3 L (8.4-10.2) mg/dL
--- NOTE | 2024-08-26 11:03 | P.PN ---
Subjective Progress Note Date: 08/26/24 Principal diagnosis: Acute pneumoperitoneum secondary to perforated gastric ulcer status post exploratory laparotomy, abdominal washout and modified Kiet patch procedure postoperative day #14 On 08/14/2024, this patient is being seen for a follow-up. The patient is postop day #2. The patient was found to have a perforated gastric ulcer with pneumoperitoneum. The patient underwent expected laparotomy abdominal washout and a modified Kiet patch. The patient is postop day #2. This morning, the patient remains intubated on mechanical ventilator. The patient on propofol running at 40 mcg/kg/min. Remains on active drinking at 125 cc an hour. Remains on norepinephrine running at 0.11 mcg/kg/min and vasopressin physiologic dose. On a mechanical ventilator, assist-control mode with rate of 18, tidal volume of 500, FiO2 30% with a PEEP of 5. Blood gas with a pH of 7.38 with a pCO2 of 33 and pO2 of 79. The patient's rhythm is atrial fibrillation. The patient has a ABDIAZIZ drain output is minimal at this point, the patient is covered with a combination of Zosyn and Diflucan. The patient received a total of 2 units of packed RBC postop. Blood work from today shows a WBC count of 26, hemoglobin 9.5 and a platelet count of 457. Sodium is at 139, BUN is 18 with a creatinine of 2.5 and a BUN of 71. Serum bicarbonate of 18. The patient does have an underlying acute on top of chronic kidney disease. He is febrile with a temperature of 101.7. He remains tachycardic. On 08/15/2024, the patient is being seen for a follow-up. This morning, the patient is still intubated on the mechanical ventilator. The patient sedated on propofol which is running at 40 mcg/kg/min. Remains on a mechanical ventilator assist-control mode at rate of 18, tidal volume of 500, FiO2 of 30% with a PEEP of 5. Blood gas from today showed a pH of 7.45 with a pCO2 of 35 and pO2 of 75. Chest x-ray from today shows ET tube in adequate location. Findings are consistent with CHF and volume overload and some worsening in the left basilar opacity/atelectasis. Hemodynamically, the patient remains in atrial fibrillation. Heart rate is under better control. The patient is on Cardizem drip that this has been weaned down to 2.5 mg an hour and the patient remains on IV heparin this was tolerated yesterday. At the same time, the patient remains on norepinephrine running at 0.1 mcg/kg/min and vasopressin physiologic dose. Lactated Ringer's running at a rate of 125 cc an hour and the patient is a positive fluid balance of 2.4 L. ABDIAZIZ output is minimal in the order of 5 to 10 cc over the past 12 hours. NG output is also minimal. Rest of the blood work showed a white cell count of 27.7, hemoglobin 8.5 and a platelet count of 407. The sodium levels at 141, BUN 58 with a creatinine of 2.1. Serum bicarb is at 23 and the chloride is 109. Glucose is 870. The blood cultures are still negative.Echocardiogram showed a impaired LV function with ejection fraction of 35 to 40%. Right ventricular systolic pressure is at 54. 08/16/2024, patient is being seen for a follow-up in the intensive care unit. This morning, the patient remains intubated on mechanical ventilator. The patient sedated on propofol running at 40 mcg/kg/min. The patient is on assist- control mode with rate of 18, tidal volume of 500, FiO2 30% with a PEEP of 5. Blood gas showed a pH of 7.46 with a pCO2 of 37 and pO2 of 71. Chest x-ray from this morning shows worsening pulmonary vascular congestion and cardiomegaly with development of bilateral pleural effusions. There are some atelectatic changes in lung bases bilaterally. The patient was started on TPN which is currently running at 30 cc an hour. IV fluids are currently at KVO. Output from the NG tube is minimal in the order of 10 cc over the past 8 hours, output from the ABDIAZIZ is minimal in the order of 10 cc an hour. The patient is in atrial fibrillation. The patient is having occasional PVCs. Remains on Cardizem drip at 2.5 mg an hour and the patient is also on IV heparin. Norepinephrine is running at 0.09 mcg/kg/min. The white cell count is improved and is currently down to 20 with a hemoglobin of 8 and a platelet count of 345. BUN is 49 with a creatinine of 1.87. Sodium levels at 142, potassium level is at 3.7, chloride is 110. Remains on a combination of Zosyn and Diflucan. On 08/17/2024, patient is being seen for a follow-up. This morning, the patient remains on propofol which is running at 40 mcg/kg/min. The patient was given sedation holiday yesterday. This was reported as the patient started having significant activities. The cardiac rhythm remains atrial fibrillation with controlled rate. This morning, the patient is calm and comfortable on propofol. He is on assist-control mode of mechanical ventilation at rate of 14, tidal volume of 500, FiO2 of 30% with a PEEP of 5. IV fluids are currently at KVO and the patient remains on TPN at a rate of 50 cc an hour. The patient is on low-dose norepinephrine running at 0.01 mcg/kg/min. The blood gas showed a pH of 7.46 with a pCO2 35 and pO2 of 70. Chest x-ray shows atelectatic changes and bilateral pleural effusions. NG tube output is in order of 100 cc over the past 8 hours. ABDIAZIZ output is in the order of 60 cc over the past 12 hours. The patient remains on IV heparin. The patient is off the Cardizem drip for now. The rest of the blood work shows a white cell count of 18, hemoglobin of 7.5 and a platelet count of 305. The sodium levels at 142, potassium level 3.8, chloride 112 and the bicarbonate is a 24. BUN 39 and a creatinine of 1.6. Blood sugars are elevated and the Lantus insulin dose will be further adjusted. No fever. No other significant events. Abdominal wound is dry clean and intact. 08/18/2024, the patient is being seen for a follow-up. She had another sedation holiday because of tachypnea and restlessness and asynchrony with a mechanical ventilator. This morning, he is on propofol. Will do a gradual propofol wean and use Precedex if needed. He is currently on propofol running at 20 mcg/kg/min. Remains on assist-control mode at rate of 14, tidal volume of 500, FiO2 of 30% with a PEEP of 5. Blood gas showed a pH of 7.43 with a pCO2 of 39 and pO2 of 88. Chest x-ray is unchanged and there is atelectatic change in the fusion lung base bilaterally. Remains on TPN for nutritional support with rate of 50 cc an hour. IV fluids are KVO. NG output is in the order of 200 cc over the past 24 hours. ABDIAZIZ output is in the order of 45 cc. Remains on norepinephrine at a dose of 0.01 mcg/kg/min. The fluid balance is -1.2 L over the past 24 hours and the patient remains on IV Lasix 40 mg every 12 hours. The patient is also on Zosyn and Diflucan. Afebrile. Hemodynamically stable with low-dose pressors. The white cell count is 18, hemoglobin 7.4 and a platelet count of 335. The BUN is 38 with a creatinine of 1.4. Sodium is at 142, bicarb is at 24. Blood sugars at 230 and Lantus dose has been modified. No other significant events overnight. On 08/19/2024, the patient is being seen for a follow-up. Remains intubated on mechanical ventilatory patient has been off propofol for the past 24 hours. He is opening his eyes and moving. Nevertheless, is not following commands yet. Bobbi coronado continues to be quite sedated. As such, no weaning trials have been done awaiting further improvement in his mentation. Cardiac rhythm is atrial fibrillation and the patient remains on IV heparin. Rate is controlled. Remains on low-dose norepinephrine which is running at 0.05 mcg/kg/min. He is on TPN at rate of 80 cc an hour. He is on the IV Lasix 40 mg every 12 hours and the fluid balance -238 cc over the past 24 hours. He is on the mechanical ventilator assist-control mode at rate of 14, tidal volume of 500, FiO2 of 30% with a PEEP of 5. Blood gas showed a pH of 7.43 with a pCO2 of 39 and pO2 of 95. NG tube output has been 50 cc over the past 12 hours. ABDIAZIZ output is minimal. Blood work from today shows a white cell count of 17, hemoglobin 7.3 and a platelet count of 319. Sodium is at 143, BUN 37 and the creatinine is at 1.45. Remains on Zosyn and Diflucan. Blood sugar control with Lantus. On 08/20/2024, the patient is off sedation the patient has been off propofol for the past 48 hours. He is still not fully awake. He moves around. Withdraws to painful stimulation. At times, he gets slightly restless. Nevertheless, he is not awake and he is not following any commands and his level of alertness remains quite diminished. For that reason, I recommended a CAT scan of the head to investigate ongoing altered mentation. The patient remains on the mechanical ventilator assist-control mode rate of 14, tidal volume of 500, FiO2 30% with a PEEP of 5. Blood gas showed a pH of 7.44 with pCO2 41 and pO2 of 97. Fluid balance is negative to 11 cc over the past 24 hours. Hemoglobin stable at 7.1 and the creatinine is down to 1.3. The patient remains on low-dose norepinephrine running at 0.02 mcg/kg/min. NG tube output is in the order of 150 cc over the past 24 hours and the patient was started on TPN for additional support. IV fluids are currently at KVO. The patient continues to be in atrial fibrillation with a controlled rate. The patient is having frequent ectopies. The patient remains on IV heparin. Antibiotic coverage include Zosyn and antico agulation with Diflucan. He is being diuresed with IV Lasix 40 mg p.o. 12 hours and a dose will be modified. The patient is on Lantus insulin 20 units twice a day and sliding scale coverage. No other significant events overnight. Patient was evaluated today on 08/21/2024, remains in the ICU intubated and mechanically ventilated, on assist-control rate of 14 tidal volume 500 FiO2 30% and PEEP of 5. Patient is now postoperative day #8, his ABG showed a pO2 of 136 pCO2 4 0 pH of 7.47 hence I did not make any ventilator changes. Patient remains on TPN, he is off propofol today, and I would like to give him a trial of weaning if we need to place on Precedex, will keep placed on Precedex, and give the patient a trial of weaning possibly today. We tried this today, and the patient became extremely agitated restless, he had to be placed back on mechanical ventilation/assist-control rate, he was tried on a pressure support of 10 and CPAP, tolerated for less than half an hour. But then as he got agitated patient required Dilaudid, and now I am recommending Precedex trial on this patient. His hemoglobin today is 6.9, hence he will receive 1 unit of packed RBCs. Remains on Zosyn and Diflucan, remains on Lasix 40 mg IV push every 8 hours. His ABDIAZIZ drain is showing minimal drainage, CT of the abdomen is negative. Patient is now postoperative day #8, had a perforated gastric ulcer. The goal today is to hopefully address weaning, his chest x-ray shows a good sized right-sided pleural effusion, may eventually require thoracentesis. Continues to have leukocytosis with WC BC count of 13.7 hemoglobin 6.9 basic metabolic profile is normal bicarb is 32 BUN is 44 creatinine 1.28, steadily improving compared to creatinine of 2.55 on admission. Patient was seen today on 08/22/2024, remains in the ICU, intubated and mechanically ventilated. On assist-control rate of 14 tidal volume 500 FiO2 30% PEEP of 5 ABG showed a pO2 of 79 pCO2 37 pH of 7.48, hence patient was kept on the same vent settings, and considering the patient is calm on Precedex today, I am recommending that we give him a trial of pressure support of 12 and CPAP. If tolerated will go to a pressure support of 8 and CPAP for about half an hour and then if tolerated we could consider checking weaning parameters, ABG on pressure support of 8 and CPAP, and if he continues to do well may even proceed to extubation. His hemoglobin today is 9.1, patient received a total of 4 units of packed RBCs since this admission. Patient is still requiring norepinephrine at 0.03 mcg per kilo per minute he is also on TPN at 80 cc/h he is on heparin drip, Precedex, and off propofol. Labs were all reviewed, WBC count is 13.1 hemoglobin is 9.1. Basic metabolic profile is normal BUN is 44 creatinine 1.17, steadily improving since his admission with creatinine of 2.55 initially. Chest x-ray showed right lower lobe atelectasis and possibly a small right-sided pleural effusion Patient was seen today on 08/23/2024, remains in ICU, intubated, mechanically ventilated, he is on assist-control rate of 14 tidal volume 500 FiO2 30% PEEP of 5. Yesterday the patient tolerated about 7 hours of pressure support of 8 and CPAP, however patient had very poor weaning parameters very marginal, and he was noted to be extremely weak, and sleepy hence patient was not extubated yesterday and I will try to do the same thing today. As a matter fact patient went for 1 hour on pressure support of 10 and CPAP, did fairly well except he remains very weak, and sleepy, and I did not feel that the patient is ready to be extubated. In addition to this the patient does have a temp of 102, white count is up to 14, and debating whether to consider CT of the abdomen and pelvis, although clinically his abdominal exam seems to be relatively benign. No tenderness, no rebound, no guarding. Patient is not requiring any norepinephrine at this point, however he is on heparin he is on Precedex at 0.3 TPN at 80 mL/h, and his chest x-ray continues to show right lower lobe atelectasis and small pleural effusion. Patient is on fluconazole and Zosyn. Again abdomen is soft, and does not seem to be surgical at this point. ABG showed a pO2 of 68 pCO2 37 pH of 7.47 and this was done on a pressure support of 10 and CPAP after 1 hour. WBC count is 14.3 hemoglobin 9.8 electrolytes are normal BUN is 45 creatinine 1.32. Patient was seen today on 08/24/2024, patient remains intubated and mechanically ventilated, remains on the same vent settings including tidal volume of 500 rate 14 FiO2 30% and PEEP of 5. However as I walked in to see the patient, minutes earlier apparently the patient extubated himself, and the tube has to be ad vanced by respiratory therapy back, and it was already pulled almost 5 cm proximally. Patient is having anxiety and agitation, there is some air leak, patient is not getting his tidal volumes, hence I recommended that we proceed to extubating the patient to BiPAP. Patient is following instructions, but he seems to be generally weak and slow. He is on Precedex he is on TPN, he is also on heparin and norepinephrine is presently on hold. Reviewed his chest x-ray today, showed mostly atelectasis and small right-sided pleural effusion which may or may not require thoracentesis. Reviewed his labs, and ABG this morning showed a pO2 of 68 pCO2 32 pH of 7.50 his basic metabolic profile is normal. Creatinine 1.26, blood sugar is 238. Considering the patient was marginal for extubation and considering the event this morning, I went ahead and recommended extubating the patient to BiPAP. And this was done, patient seemed to tolerate that better than being on mechanical ventilation at this point. Patient was seen today on 08/25/2024, patient remains in the ICU very marginal and remains quite ill. He tolerated the extubation so far, but the patient is not quite ready to be transferred out of the ICU as he remains very marginal mostly with his profound weakness and unable to cough vigorously to clear his secretions. Chest x-ray continues to show right lower lobe atelectasis and pleural effusion hence I am recommending an ultrasound of the chest may consider thoracentesis on this patient. In the meantime I discussed his condition with surgery today, seem to be concerned about his abdomen and recommending CT of the abdomen pelvis with oral contrast which will be done today. Today the patient is on 4 L nasal cannula, he is on Precedex because of agitation yesterday he is on 0.3 mcg/kg/h he is also on TPN, Zosyn and Eraxis and norepinephrine is presently on hold. Ultrasound of the chest did not actually show a right-sided pocket or fluid hence no marking was placed, and I believe the findings are mostly findings of atelectasis no pleural effusion that is worth pursuing at this point. Patient is having worsening leukocytosis with WBC of 18.8 hemoglobin is 8.7 his electrolytes are normal renal profile is normal BUN is 44 creatinine 1.17 PTT is 47.2 Seen today on 08/26/2024, patient is presently on BiPAP, 12/5/60%. Remains on Precedex at 0.5 mg/kg/h. Patient is on amiodarone as he went into atrial fibrillation with RVR earlier this morning and I recommended amiodarone bolus and amiodarone drip. His amiodarone is at 0.5 mg/min. He patient is on heparin, TPN at 85 cc/h vital HP at 10 mL/h. Remains on Zosyn, patient is extremely weak, arousable but seems to be very weak, follows very simple instructions only. His chest x-ray continues to show right lower lobe consolidation no pleural effusion noted on ultrasound. Patient is having difficulty clearing his secretions, does not seem to have a vigorous cough to clear his airways. And I had a feeling that the patient may end up going back on mechanical ventilation. Will have to address his CODE STATUS with the family as the patient seems to have very poor prognostic picture, and seems to have failure to thrive. His CT of the abdomen yesterday showed no evidence of any surgical process. Remains empirically on Zosyn. Remains on Lasix 40 mg IV push every 8 hours, he has good urine output. Patient is also on Eraxis. And now he is on amiodarone which was added this morning. Looking at his overall clinical picture, I have a strong feeling that the patient may end up requiring reintubation mechanical ventilation, at this point he is marginal. And if he does end up intubated and mechanically ventilated, patient will need to have tracheostomy and PEG tube placement down the line. WBC count today is 16.7 hemoglobin is 8.7 PTT is 57 electrolytes are normal BUN is 44 creatinine 1.19 blood sugar is 274 Objective - Vital Signs Vital signs: Vital Signs Temp 99.7 F H 08/26/24 08:15 Pulse 75 08/26/24 10:00 Resp 27 H 08/26/24 10:00 BP 136/78 08/26/24 10:00 Pulse Ox 99 08/26/24 10:00 FiO2 50 08/26/24 09:13 Intake & Output 08/25/24 08/26/24 08/26/24 18:59 06:59 18:59 Intake Total 4693.390 2885.512 470 Output Total 2215 1775 700 Balance -556.923 -108.488 -230 Weight 105 kg 107.6 kg Intake: IV 940 1045 410 .9NS KVO 130 110 40 Mvi, Adult No.4 with Vit 810 935 170 K 10 ml Trace (Conc-1Ml/ Dose) 1 ml Sodium Acetate 16 meq Potassium Acetate 14 meq Potassium Phosphate 21 mmol Magnesium Sulfate gm 0.75 gm Calcium Gluconate 1 gm In Amino Acids 5 %/ Dextrose 20 % 1,000 ml @ 75 mls/hr IV .[id number] [facility] Rx#:[id number] Piperacillin-Tazobactam 3 100 .375 gm In Sodium Chloride 0.9% 100 ml @ 25 mls/hr IVPB Q8HR [facility] Rx# :[id number] Potassium Chloride 10 meq 100 In Water For Injection 1 100ml.bag @ 100 mls/hr IVPB Q1H [facility] Rx#: [id number] Intake, IV Titration 638.077 421.512 Amount Dexmedetomidine/0.9% NaCl 100.077 51.059 (Pmx) 400 mcg In Empty Bag 1 bag @ 0.2 MCG/KG/HR 5.575 mls/hr IV .[id number] [facility] Rx#:[id number] Fat Emulsion 20% 250 ml 168 126 In Empty Bag 1 bag @ 21 mls/hr IV Q72H [facility] Rx#: [id number] Heparin Sod,Pork in 0.45% 244.453 NaCl 25,000 unit In 0.45 % NaCl 1 250ml.bag @ 6. 826 UNITS/KG/HR 10 mls/hr IV .Q24H [facility] Rx#: [id number] Piperacillin-Tazobactam 3 100 .375 gm In Sodium Chloride 0.9% 100 ml @ 25 mls/hr IVPB Q8HR [facility] Rx# :[id number] Potassium Chloride 10 meq 100 In Water For Injection 1 100ml.bag @ 100 mls/hr IVPB Q1H [facility] Rx#: [id number] Sodium Acetate 26 meq 170 Potassium Phosphate 9 mmol Magnesium Sulfate gm 0.75 gm Potassium Chloride 30 meq Calcium Gluconate 1 gm In Amino Acids 5 %/Dextrose 20 % 1 ,000 ml @ 85 mls/hr IV . BY DURATION [facility] Rx#: [id number] Tube Feeding 110 30 TPN/PPN 80 Mvi, Adult No.4 with Vit 80 K 10 ml Trace (Conc-1Ml/ Dose) 1 ml Sodium Acetate 16 meq Potassium Acetate 14 meq Potassium Phosphate 21 mmol Magnesium Sulfate gm 0.75 gm Calcium Gluconate 1 gm In Amino Acids 5 %/ Dextrose 20 % 1,000 ml @ 75 mls/hr IV .[id number] [facility] Rx#:[id number] Other 90 30 Output: Drainage 40 Right abdominal ABDIAZIZ drain 40 Urine 2175 1775 700 Other: Voiding Method Indwelling Catheter Indwelling Catheter Indwelling Catheter # Bowel Movements 1 ABP, PAP, CO, CI - Last Documented Arterial Blood Pressure 126/54 - Exam GENERAL EXAM: Revealed 79-year-old white male on BiPAP 05/11/60% HEAD: Normocephalic. Atraumatic EYES: PERRLA, EOMI, nonicteric NOSE: Clear with pink turbinates. Nasogastric tube remains in place THROAT: No erythema or exudates. NECK: No masses, no JVD. Right IJ triple-lumen catheter in place. CHEST: No chest wall deformity. LUNGS: Crackles at the bases mostly at the right base. CVS: S1 and S irregular consistent with atrial fibrillation with no audible murmur, irregular rhythm. Patient is now on amiodarone ABDOMEN: Abdominal dressing dry and intact. ABDIAZIZ drain in place. No hepatosplenomegaly. No rebound, no guarding. No tenderness. NERVOUS SYSTEM: Patient seems to be generally weak, profound weakness is noted, arousable follows simple instructions EXTREMITIES: 2+ bipedal edema, no cyanosis. - Labs CBC & Chem 7: 08/26/24 03:59 08/26/24 03:59 Labs: Abnormal Lab Results - Last 24 Hours (Table) 08/25/24 08/25/24 08/25/24 Range/Units 11:13 18:16 23:08 WBC (3.8-10.6) k/uL RBC (4.30-5.90) m/uL Hgb (13.0-17.5) gm/dL Hct (39.0-53.0) % MCH (25.0-35.0) pg MCHC (31.0-37.0) g/dL RDW (11.5-15.5) % Neutrophils # (Manual) (1.3-7.7) k/uL APTT (22.0-30.0) sec Sodium (137-145) mmol/L BUN (9-20) mg/dL Glucose (74-99) mg/dL POC Glucose (mg/dL) 177 H 154 H 245 H (70-110) mg/dL Calcium (8.4-10.2) mg/dL 08/26/24 08/26/24 08/26/24 Range/Units 03:59 03:59 05:51 WBC 16.7 H (3.8-10.6) k/uL RBC 3.51 L (4.30-5.90) m/uL Hgb 8.7 L (13.0-17.5) gm/dL Hct 29.6 L (39.0-53.0) % MCH 24.8 L (25.0-35.0) pg MCHC 29.3 L (31.0-37.0) g/dL RDW 19.6 H (11.5-15.5) % Neutrophils # (Manual) 14.03 H (1.3-7.7) k/uL APTT (22.0-30.0) sec Sodium 135 L (137-145) mmol/L BUN 44 H (9-20) mg/dL Glucose 274 H (74-99) mg/dL POC Glucose (mg/dL) 310 H (70-110) mg/dL Calcium 8.3 L (8.4-10.2) mg/dL 08/26/24 Range/Units 08:14 WBC (3.8-10.6) k/uL RBC (4.30-5.90) m/uL Hgb (13.0-17.5) gm/dL Hct (39.0-53.0) % MCH (25.0-35.0) pg MCHC (31.0-37.0) g/dL RDW (11.5-15.5) % Neutrophils # (Manual) (1.3-7.7) k/uL APTT 57.1 H (22.0-30.0) sec Sodium (137-145) mmol/L BUN (9-20) mg/dL Glucose (74-99) mg/dL POC Glucose (mg/dL) (70-110) mg/dL Calcium (8.4-10.2) mg/dL Assessment and Plan Assessment: Impression: Acute hypoxic respiratory failure secondary to acute surgical abdomen and abdominal sepsis with septic shock Acute pneumoperitoneum secondary to perforated gastric ulcer, status post e xploratory laparotomy abdominal washout and modified Kiet patch postoperative day #14 Acute abdominal sepsis and septic shock remains on antibiotics, remains on norepinephrine at 0.03 mcg/kg/min., Remains on antibiotics including Zosyn and Diflucan Hypotension, secondary to abdominal sepsis and septic shock still requiring norepinephrine Hypoalbuminemia with edema and third spacing Severe LV dysfunction with ejection fraction of 35% Acute blood loss anemia patient received so far 2 units of packed RBCs since admission Leukocytosis secondary to abdominal sepsis Acute kidney injury secondary to sepsis and septic shock Chronic atrial fibrillation, rate controlled History of hypertension History of prostate cancer Critical illness polyneuropathy, and failure to thrive Recommendation: Continue BiPAP however if clinical condition worsens may have to be intubated. And I have a strong feeling that he may end up reintubated. Unless CODE STATUS is changed by family. Reviewed the results of the CT of the abdomen, nonsurgical Started the patient earlier this morning on amiodarone for atrial fibrillation with RVR asked cardiology to reevaluate Continue Zosyn and Eraxis Continue to hold narcotics and sedatives,, continue. Precedex Continue GI and DVT prophylaxis, Continue Lasix 40 mg IV push every 8 hours, and monitor daily labs including daily electrolytes and renal profile CT of the chest showed consolidation of the right lower lobe patient has difficulty clearing secretions hence will recommend chest PT. Continue TPN at 80 cc/h/nutritional support Continue insulin and sliding scale coverage Continue hemodynamics monitoring and address with norepinephrine if necessary. Transfuse for hemoglobin below 7 Will discuss with family his overall prognostic picture, as I have a strong feeling that the patient will end up back on mechanical ventilation, and if he does he will eventually require tracheostomy and PEG tube placement. Patient seems to be a failure to thrive., And he is critically ill. No plans to transfer the patient out of the ICU at the proximal point. Critical care time is 33 minutes Time with Patient: Greater than 30
--- NOTE | 2024-08-26 11:10 | P.PN ---
Subjective Patient is seen for follow-up for acute kidney injury. Maintained on IV Lasix Serum creatinine at 1.17 mg/dL Patient was extubated however he remains significantly weak and may need to be reintubated. Good urine output noted. Objective - Vital Signs Vital signs: Vital Signs Temp 99.7 F H 08/26/24 08:15 Pulse 75 08/26/24 10:00 Resp 27 H 08/26/24 10:00 BP 136/78 08/26/24 10:00 Pulse Ox 99 08/26/24 10:00 FiO2 50 08/26/24 09:13 Intake & Output 08/25/24 08/26/24 08/26/24 18:59 06:59 18:59 Intake Total 5072.364 1135.512 470 Output Total 2215 1775 700 Balance -556.923 -108.488 -230 Weight 105 kg 107.6 kg Intake: IV 940 1045 410 .9NS KVO 130 110 40 Mvi, Adult No.4 with Vit 810 935 170 K 10 ml Trace (Conc-1Ml/ Dose) 1 ml Sodium Acetate 16 meq Potassium Acetate 14 meq Potassium Phosphate 21 mmol Magnesium Sulfate gm 0.75 gm Calcium Gluconate 1 gm In Amino Acids 5 %/ Dextrose 20 % 1,000 ml @ 75 mls/hr IV .[id number] [facility] Rx#:[id number] Piperacillin-Tazobactam 3 100 .375 gm In Sodium Chloride 0.9% 100 ml @ 25 mls/hr IVPB Q8HR [facility] Rx# :[id number] Potassium Chloride 10 meq 100 In Water For Injection 1 100ml.bag @ 100 mls/hr IVPB Q1H [facility] Rx#: [id number] Intake, IV Titration 638.077 421.512 Amount Dexmedetomidine/0.9% NaCl 100.077 51.059 (Pmx) 400 mcg In Empty Bag 1 bag @ 0.2 MCG/KG/HR 5.575 mls/hr IV .[id number] [facility] Rx#:[id number] Fat Emulsion 20% 250 ml 168 126 In Empty Bag 1 bag @ 21 mls/hr IV Q72H [facility] Rx#: [id number] Heparin Sod,Pork in 0.45% 244.453 NaCl 25,000 unit In 0.45 % NaCl 1 250ml.bag @ 6. 826 UNITS/KG/HR 10 mls/hr IV .Q24H [facility] Rx#: [id number] Piperacillin-Tazobactam 3 100 .375 gm In Sodium Chloride 0.9% 100 ml @ 25 mls/hr IVPB Q8HR [facility] Rx# :[id number] Potassium Chloride 10 meq 100 In Water For Injection 1 100ml.bag @ 100 mls/hr IVPB Q1H [facility] Rx#: [id number] Sodium Acetate 26 meq 170 Potassium Phosphate 9 mmol Magnesium Sulfate gm 0.75 gm Potassium Chloride 30 meq Calcium Gluconate 1 gm In Amino Acids 5 %/Dextrose 20 % 1 ,000 ml @ 85 mls/hr IV . BY DURATION [facility] Rx#: [id number] Tube Feeding 110 30 TPN/PPN 80 Mvi, Adult No.4 with Vit 80 K 10 ml Trace (Conc-1Ml/ Dose) 1 ml Sodium Acetate 16 meq Potassium Acetate 14 meq Potassium Phosphate 21 mmol Magnesium Sulfate gm 0.75 gm Calcium Gluconate 1 gm In Amino Acids 5 %/ Dextrose 20 % 1,000 ml @ 75 mls/hr IV .[id number] [facility] Rx#:[id number] Other 90 30 Output: Drainage 40 Right abdominal ABDIAZIZ drain 40 Urine 1328 7057 700 Other: Voiding Method Indwelling Catheter Indwelling Catheter Indwelling Catheter # Bowel Movements 1 ABP, PAP, CO, CI - Last Documented Arterial Blood Pressure 126/54 - Exam Patient is awake, on BiPAP Examination of the heart S1 and S2 Examination of the lungs bilateral breath sounds are heard Abdomen is dressed Examination lower extremity shows edema 2+ bilateral - Labs CBC & Chem 7: 08/26/24 03:59 08/26/24 03:59 Labs: Abnormal Lab Results - Last 24 Hours (Table) 08/25/24 08/25/24 08/25/24 Range/Units 11:13 18:16 23:08 WBC (3.8-10.6) k/uL RBC (4.30-5.90) m/uL Hgb (13.0-17.5) gm/dL Hct (39.0-53.0) % MCH (25.0-35.0) pg MCHC (31.0-37.0) g/dL RDW (11.5-15.5) % Neutrophils # (Manual) (1.3-7.7) k/uL APTT (22.0-30.0) sec Sodium (137-145) mmol/L BUN (9-20) mg/dL Glucose (74-99) mg/dL POC Glucose (mg/dL) 177 H 154 H 245 H (70-110) mg/dL Calcium (8.4-10.2) mg/dL 08/26/24 08/26/24 08/26/24 Range/Units 03:59 03:59 05:51 WBC 16.7 H (3.8-10.6) k/uL RBC 3.51 L (4.30-5.90) m/uL Hgb 8.7 L (13.0-17.5) gm/dL Hct 29.6 L (39.0-53.0) % MCH 24.8 L (25.0-35.0) pg MCHC 29.3 L (31.0-37.0) g/dL RDW 19.6 H (11.5-15.5) % Neutrophils # (Manual) 14.03 H (1.3-7.7) k/uL APTT (22.0-30.0) sec Sodium 135 L (137-145) mmol/L BUN 44 H (9-20) mg/dL Glucose 274 H (74-99) mg/dL POC Glucose (mg/dL) 310 H (70-110) mg/dL Calcium 8.3 L (8.4-10.2) mg/dL 08/26/24 Range/Units 08:14 WBC (3.8-10.6) k/uL RBC (4.30-5.90) m/uL Hgb (13.0-17.5) gm/dL Hct (39.0-53.0) % MCH (25.0-35.0) pg MCHC (31.0-37.0) g/dL RDW (11.5-15.5) % Neutrophils # (Manual) (1.3-7.7) k/uL APTT 57.1 H (22.0-30.0) sec Sodium (137-145) mmol/L BUN (9-20) mg/dL Glucose (74-99) mg/dL POC Glucose (mg/dL) (70-110) mg/dL Calcium (8.4-10.2) mg/dL Assessment and Plan Assessment: 1. Acute kidney injury secondary to ATN. Creatinine 1.5 in January 2024 and 2.5 this admission. Renal function improving. Currently being diuresed. Creatinine 1.1. Nonoliguric. No hydronephrosis noted on CT. 2. Perforated gastric ulcer with pneumoperitoneum status post ex lap with closure of ulcer August 13, 2024. 3. Septic shock on vasopressor support. 4. Metabolic acidosis secondary to acute kidney injury and lactic acidosis. Improved. 5. Diabetes mellitus. 6. A-fib with RVR. On oral meds. Cardiology following. 7. Volume overload. Maintained on IV Lasix. Patient remains with significant edema Plan: Continue with IV Lasix Add Zaroxolyn Maintained on TPN Monitor electrolytes
--- NOTE | 2024-08-26 11:13 | P.PN ---
Subjective Patient seen and evaluated at bedside. Patient doing well, recently extubated, however patient is febrile and still somewhat tender in the abdomen. Objective - Vital Signs Vital signs: Vital Signs Temp 99.7 F H 08/26/24 08:15 Pulse 75 08/26/24 10:00 Resp 27 H 08/26/24 10:00 BP 136/78 08/26/24 10:00 Pulse Ox 99 08/26/24 10:00 FiO2 50 08/26/24 09:13 Intake & Output 08/25/24 08/26/24 08/26/24 18:59 06:59 18:59 Intake Total 2345.156 6874.512 470 Output Total 2215 1775 700 Balance -556.923 -108.488 -230 Weight 105 kg 107.6 kg Intake: IV 940 1045 410 .9NS KVO 130 110 40 Mvi, Adult No.4 with Vit 810 935 170 K 10 ml Trace (Conc-1Ml/ Dose) 1 ml Sodium Acetate 16 meq Potassium Acetate 14 meq Potassium Phosphate 21 mmol Magnesium Sulfate gm 0.75 gm Calcium Gluconate 1 gm In Amino Acids 5 %/ Dextrose 20 % 1,000 ml @ 75 mls/hr IV .[id number] [facility] Rx#:[id number] Piperacillin-Tazobactam 3 100 .375 gm In Sodium Chloride 0.9% 100 ml @ 25 mls/hr IVPB Q8HR [facility] Rx# :[id number] Potassium Chloride 10 meq 100 In Water For Injection 1 100ml.bag @ 100 mls/hr IVPB Q1H [facility] Rx#: [id number] Intake, IV Titration 638.077 421.512 Amount Dexmedetomidine/0.9% NaCl 100.077 51.059 (Pmx) 400 mcg In Empty Bag 1 bag @ 0.2 MCG/KG/HR 5.575 mls/hr IV .[id number] [facility] Rx#:[id number] Fat Emulsion 20% 250 ml 168 126 In Empty Bag 1 bag @ 21 mls/hr IV Q72H [facility] Rx#: [id number] Heparin Sod,Pork in 0.45% 244.453 NaCl 25,000 unit In 0.45 % NaCl 1 250ml.bag @ 6. 826 UNITS/KG/HR 10 mls/hr IV .Q24H [facility] Rx#: [id number] Piperacillin-Tazobactam 3 100 .375 gm In Sodium Chloride 0.9% 100 ml @ 25 mls/hr IVPB Q8HR [facility] Rx# :[id number] Potassium Chloride 10 meq 100 In Water For Injection 1 100ml.bag @ 100 mls/hr IVPB Q1H [facility] Rx#: [id number] Sodium Acetate 26 meq 170 Potassium Phosphate 9 mmol Magnesium Sulfate gm 0.75 gm Potassium Chloride 30 meq Calcium Gluconate 1 gm In Amino Acids 5 %/Dextrose 20 % 1 ,000 ml @ 85 mls/hr IV . BY DURATION [facility] Rx#: [id number] Tube Feeding 110 30 TPN/PPN 80 Mvi, Adult No.4 with Vit 80 K 10 ml Trace (Conc-1Ml/ Dose) 1 ml Sodium Acetate 16 meq Potassium Acetate 14 meq Potassium Phosphate 21 mmol Magnesium Sulfate gm 0.75 gm Calcium Gluconate 1 gm In Amino Acids 5 %/ Dextrose 20 % 1,000 ml @ 75 mls/hr IV .[id number] [facility] Rx#:[id number] Other 90 30 Output: Drainage 40 Right abdominal SIS drain 40 Urine 2175 1775 700 Other: Voiding Method Indwelling Catheter Indwelling Catheter Indwelling Catheter # Bowel Movements 1 ABP, PAP, CO, CI - Last Documented Arterial Blood Pressure 126/54 - Exam gen: nad cv: rrr pul: non labored on vent abd: soft, distended, tenderness to palpation c/d/i sis drain serosang - Labs CBC & Chem 7: 08/26/24 03:59 08/26/24 03:59 Labs: Abnormal Lab Results - Last 24 Hours (Table) 08/25/24 08/25/24 08/25/24 Range/Units 11:13 18:16 23:08 WBC (3.8-10.6) k/uL RBC (4.30-5.90) m/uL Hgb (13.0-17.5) gm/dL Hct (39.0-53.0) % MCH (25.0-35.0) pg MCHC (31.0-37.0) g/dL RDW (11.5-15.5) % Neutrophils # (Manual) (1.3-7.7) k/uL APTT (22.0-30.0) sec Sodium (137-145) mmol/L BUN (9-20) mg/dL Glucose (74-99) mg/dL POC Glucose (mg/dL) 177 H 154 H 245 H (70-110) mg/dL Calcium (8.4-10.2) mg/dL 08/26/24 08/26/24 08/26/24 Range/Units 03:59 03:59 05:51 WBC 16.7 H (3.8-10.6) k/uL RBC 3.51 L (4.30-5.90) m/uL Hgb 8.7 L (13.0-17.5) gm/dL Hct 29.6 L (39.0-53.0) % MCH 24.8 L (25.0-35.0) pg MCHC 29.3 L (31.0-37.0) g/dL RDW 19.6 H (11.5-15.5) % Neutrophils # (Manual) 14.03 H (1.3-7.7) k/uL APTT (22.0-30.0) sec Sodium 135 L (137-145) mmol/L BUN 44 H (9-20) mg/dL Glucose 274 H (74-99) mg/dL POC Glucose (mg/dL) 310 H (70-110) mg/dL Calcium 8.3 L (8.4-10.2) mg/dL 08/26/24 Range/Units 08:14 WBC (3.8-10.6) k/uL RBC (4.30-5.90) m/uL Hgb (13.0-17.5) gm/dL Hct (39.0-53.0) % MCH (25.0-35.0) pg MCHC (31.0-37.0) g/dL RDW (11.5-15.5) % Neutrophils # (Manual) (1.3-7.7) k/uL APTT 57.1 H (22.0-30.0) sec Sodium (137-145) mmol/L BUN (9-20) mg/dL Glucose (74-99) mg/dL POC Glucose (mg/dL) (70-110) mg/dL Calcium (8.4-10.2) mg/dL Assessment and Plan Assessment: 1. Perforated gastric ulcer status post exploratory laparotomy and modified Kiet patch 2. Hypokalemia improved 3. A-fib on IV heparin PLAN: -advance tube feeds to goal -Continue TPN for nutrition support -Continue ICU management -Continue supportive care -Continue antibiotics -Continue to monitor SIS drain output -Continue IV Protonix -Continue to monitor hemoglobin -Continue IV Tylenol for pain management and fevers Time with Patient: Less than 30
[2024-08-26 11:36] LABS: Glucose,Whole Blood 266 mg/dL (70-110)
[2024-08-26] MEDS: metOLazone 5 MG TAB PO SCH (12:30)
--- NOTE | 2024-08-26 13:00 | P.PN ---
Subjective Progress Note Date: 08/26/24 The patient is a 79-year-old male who is currently admitted for perforated gastric ulcer and patient had previously been consulted for atrial fibrillation management. We had signed off on the case, however after to the patient was extubated he again developed A-fib with RVR. He was started on an amiodarone drip and is now rate controlled. He is able to tolerate oral feeds and is being transitioned over to oral medications. Interviewed and examined on BiPAP. He is quite agitated and in respiratory distress. Nursing staff states he will likely be reintubated due to pulmonary congestion. GENERAL: Well-appearing, ill-nourished and mild respiratory distress. Currently on BiPAP NECK: Supple without JVD or thyromegaly. LUNGS: Breath sounds coarse to auscultation bilaterally. Respiration equal and unlabored. Bilateral rhonchi. HEART: Irregular rate and rhythm without murmurs, rubs or gallops. S1 and S2 heard. EXTREMITIES: Normal range of motion, mild edema. No clubbing or cyanosis. Peripheral pulses intact and strong. TELEMETRY: Atrial fibrillation, rate controlled LABS: WBC 16.7, hemoglobin 8.7, hematocrit 29.6, platelet 385, sodium 135, potassium 3.7, BUN 44, creatinine 1.19 IMPRESSION: Persistent atrial fibrillation Perforated gastric ulcer, status post exploratory laparotomy with modified Kiet patch repair Cardiomyopathy, EF 35 to 40% Pulmonary hypertension Hypoxic respiratory failure, currently ventilated Anemia, defer to primary team PLAN: Continue IV amiodarone Will transition to oral tomorrow Consider beta asad if needed I am dictating on behalf of Dr Rui Pham's history/physical and assessment/plan. Objective - Vital Signs Vital signs: Vital Signs Temp 99.7 F H 08/26/24 08:15 Pulse 75 08/26/24 10:00 Resp 27 H 08/26/24 10:00 BP 136/78 08/26/24 10:00 Pulse Ox 99 08/26/24 10:00 FiO2 50 08/26/24 09:13 Intake & Output 08/25/24 08/26/24 08/26/24 18:59 06:59 18:59 Intake Total 4546.832 4635.512 470 Output Total 2215 1775 700 Balance -556.923 -108.488 -230 Weight 105 kg 107.6 kg Intake: IV 940 1045 410 .9NS KVO 130 110 40 Mvi, Adult No.4 with Vit 810 935 170 K 10 ml Trace (Conc-1Ml/ Dose) 1 ml Sodium Acetate 16 meq Potassium Acetate 14 meq Potassium Phosphate 21 mmol Magnesium Sulfate gm 0.75 gm Calcium Gluconate 1 gm In Amino Acids 5 %/ Dextrose 20 % 1,000 ml @ 75 mls/hr IV .[id number] [facility] Rx#:[id number] Piperacillin-Tazobactam 3 100 .375 gm In Sodium Chloride 0.9% 100 ml @ 25 mls/hr IVPB Q8HR [facility] Rx# :[id number] Potassium Chloride 10 meq 100 In Water For Injection 1 100ml.bag @ 100 mls/hr IVPB Q1H [facility] Rx#: [id number] Intake, IV Titration 638.077 421.512 Amount Dexmedetomidine/0.9% NaCl 100.077 51.059 (Pmx) 400 mcg In Empty Bag 1 bag @ 0.2 MCG/KG/HR 5.575 mls/hr IV .[id number] [facility] Rx#:[id number] Fat Emulsion 20% 250 ml 168 126 In Empty Bag 1 bag @ 21 mls/hr IV Q72H [facility] Rx#: [id number] Heparin Sod,Pork in 0.45% 244.453 NaCl 25,000 unit In 0.45 % NaCl 1 250ml.bag @ 6. 826 UNITS/KG/HR 10 mls/hr IV .Q24H [facility] Rx#: [id number] Piperacillin-Tazobactam 3 100 .375 gm In Sodium Chloride 0.9% 100 ml @ 25 mls/hr IVPB Q8HR [facility] Rx# :[id number] Potassium Chloride 10 meq 100 In Water For Injection 1 100ml.bag @ 100 mls/hr IVPB Q1H [facility] Rx#: [id number] Sodium Acetate 26 meq 170 Potassium Phosphate 9 mmol Magnesium Sulfate gm 0.75 gm Potassium Chloride 30 meq Calcium Gluconate 1 gm In Amino Acids 5 %/Dextrose 20 % 1 ,000 ml @ 85 mls/hr IV . BY DURATION [facility] Rx#: [id number] Tube Feeding 110 30 TPN/PPN 80 Mvi, Adult No.4 with Vit 80 K 10 ml Trace (Conc-1Ml/ Dose) 1 ml Sodium Acetate 16 meq Potassium Acetate 14 meq Potassium Phosphate 21 mmol Magnesium Sulfate gm 0.75 gm Calcium Gluconate 1 gm In Amino Acids 5 %/ Dextrose 20 % 1,000 ml @ 75 mls/hr IV .[id number] [facility] Rx#:[id number] Other 90 30 Output: Drainage 40 Right abdominal ABDIAZIZ drain 40 Urine 2175 1778 700 Other: Voiding Method Indwelling Catheter Indwelling Catheter Indwelling Catheter # Bowel Movements 1 ABP, PAP, CO, CI - Last Documented Arterial Blood Pressure 126/54 - Labs CBC & Chem 7: 08/26/24 03:59 08/26/24 03:59 Labs: Abnormal Lab Results - Last 24 Hours (Table) 08/25/24 08/25/24 08/26/24 Range/Units 18:16 23:08 03:59 WBC (3.8-10.6) k/uL RBC (4.30-5.90) m/uL Hgb (13.0-17.5) gm/dL Hct (39.0-53.0) % MCH (25.0-35.0) pg MCHC (31.0-37.0) g/dL RDW (11.5-15.5) % Neutrophils # (Manual) (1.3-7.7) k/uL APTT (22.0-30.0) sec Sodium 135 L (137-145) mmol/L BUN 44 H (9-20) mg/dL Glucose 274 H (74-99) mg/dL POC Glucose (mg/dL) 154 H 245 H (70-110) mg/dL Calcium 8.3 L (8.4-10.2) mg/dL 08/26/24 08/26/24 08/26/24 Range/Units 03:59 05:51 08:14 WBC 16.7 H (3.8-10.6) k/uL RBC 3.51 L (4.30-5.90) m/uL Hgb 8.7 L (13.0-17.5) gm/dL Hct 29.6 L (39.0-53.0) % MCH 24.8 L (25.0-35.0) pg MCHC 29.3 L (31.0-37.0) g/dL RDW 19.6 H (11.5-15.5) % Neutrophils # (Manual) 14.03 H (1.3-7.7) k/uL APTT 57.1 H (22.0-30.0) sec Sodium (137-145) mmol/L BUN (9-20) mg/dL Glucose (74-99) mg/dL POC Glucose (mg/dL) 310 H (70-110) mg/dL Calcium (8.4-10.2) mg/dL 08/26/24 Range/Units 11:34 WBC (3.8-10.6) k/uL RBC (4.30-5.90) m/uL Hgb (13.0-17.5) gm/dL Hct (39.0-53.0) % MCH (25.0-35.0) pg MCHC (31.0-37.0) g/dL RDW (11.5-15.5) % Neutrophils # (Manual) (1.3-7.7) k/uL APTT (22.0-30.0) sec Sodium (137-145) mmol/L BUN (9-20) mg/dL Glucose (74-99) mg/dL POC Glucose (mg/dL) 266 H (70-110) mg/dL Calcium (8.4-10.2) mg/dL
[2024-08-26] MEDS: CEFEPIME 2 GM in SODIUM CHLORIDE 0.9% 100 ML IVPB SCH (16:47)
[2024-08-26 18:08] LABS: Glucose,Whole Blood 334 mg/dL (70-110)
--- NOTE | 2024-08-26 18:09 | PN ---
PROGRESS NOTE DATE OF SERVICE: 08/26/2024 SUBJECTIVE: This 79-year-old gentleman, who was admitted after a perforated gastric ulcer, is on BiPAP. The patient had respiratory difficulties, unable to clear the cough. Chest x- ray showed possible pleural effusion, pneumonia in the right side. CAT scan of the abdomen showed postsurgical changes. PAST MEDICAL HISTORY: Could not be taken. REVIEW OF SYSTEMS: Could not be taken. CURRENT MEDICATIONS: Reviewed. PHYSICAL EXAM: VITAL SIGNS: Pulse is 70, blood pressure 85/55, respirations 30. CHEST: A few scattered rhonchi. ABDOMEN: Soft. NERVOUS SYSTEM: Diffusely weak. LABORATORY DATA: WBC 16.7. ASSESSMENT: 1. Perforated gastric ulcer and pneumoperitoneum, status post surgery with patch. 2. Septic shock. 3. Acute hypoxic respiratory failure. 4. Right lower lobe pneumonia with pleural effusion. 5. Congestive heart failure with acute exacerbation, ejection fraction 35% to 40%. 6. Multiple complex medical issues. RECOMMENDATIONS: Recommend to continue current management and symptomatic treatment. Otherwise, at this time, I recommend change Zosyn to cefepime. Continue the bronchodilators. Continue rest of medications and monitor blood sugars closely. Continue with Lasix. Guarded prognosis. Further recommendations to follow. MMODL / IJN: [id number] /
[2024-08-26 18:55] LABS: Influenza A Not Detected (Not Detectd); Influenza B Not Detected (Not Detectd); RSV Not Detected (Not Detectd)
[2024-08-26 19:59] LABS: Glucose,Whole Blood 364 mg/dL (70-110)
[2024-08-26 23:17] LABS: Glucose,Whole Blood 336 mg/dL (70-110)
[2024-08-27] MEDS: POTASSIUM BICARBONATE/CIT AC 20 MEQ TABLET.EFF NG-TUBE SCH ×3 (00:38→12:26)
--- NOTE | 2024-08-27 00:58 | XR ---
EXAMINATION TYPE: XR chest 1V portable DATE OF EXAM: 08/26/2024 11:09 PM COMPARISON: 08/26/2024 CLINICAL INDICATION: Male, 79 years old with history of SOB; [facility] TECHNIQUE: XR chest 1V portable Frontal view of the chest. FINDINGS: Lungs/Pleura: Right-sided airspace opacities. No evidence of focal consolidation or pneumothorax. Jn nting of the costophrenic angles is present. Pulmonary vascularity: Unremarkable. Heart/mediastinum: Cardiomediastinal silhouette is partially obscured due to overlying and adjacent o pacities. Musculoskeletal: No acute osseous pathology. Other findings: None Lines/Tubes: Nasogastric tube with its distal tip and side-port projecting under the diaphragm. Righ central venous catheter with distal tip at the cavoatrial junction. IMPRESSION: Right-sided airspace opacities compatible with consolidation seen on 08/25/2024 CT. Moderate to large right pleural effusion and small left pleural effusion. [facility], , 08/27/2024 12:56 AM
[2024-08-27 06:02] LABS: Anisocytosis Slight; HCT 30.5 % (39.0-53.0); HGB 8.8 gm/dL (13.0-17.5); Hypochromasia Marked; MCH 24.8 pg (25.0-35.0); MCHC 29.1 g/dL (31.0-37.0); MCV 85.4 fL (80.0-100.0); Mean Platelet Volume 8.8; Microcytosis Slight; Platelet Count 396 k/uL (150-450); RBC 3.57 m/uL (4.30-5.90); RDW 19.6 % (11.5-15.5)
[2024-08-27 06:11] LABS: Glucose,Whole Blood 364 mg/dL (70-110)
[2024-08-27 06:18] LABS: African American GFR (CKD) 68 (>60 ml/min/1.73 sqM); Anion Gap 8 mmol/L; Blood Urea Nitrogen 49 mg/dL (9-20); Calcium 8.5 mg/dL (8.4-10.2); Carbon Dioxide 27 mmol/L (22-30); Chloride 99 mmol/L (98-107); Glucose 329 mg/dL (74-99); Non-African American GFR(CKD) 59 (>60 ml/min/1.73 sqM); Potassium 3.9 mmol/L (3.5-5.1); Sodium 134 mmol/L (137-145)
[2024-08-27 06:19] LABS: Magnesium 2.2 mg/dL (1.6-2.3); Phosphorus 3.8 mg/dL (2.5-4.5)
--- NOTE | 2024-08-27 07:13 | XR ---
EXAMINATION TYPE: XR chest 1V portable DATE OF EXAM: 08/27/2024 CLINICAL INDICATION: Male, 79 years old with history of SOB, BiPAP dependent, progress study. TECHNIQUE: Single AP portable upright view of the chest is obtained. COMPARISON: Chest x-ray from one day earlier and older studies. FINDINGS: Stable right internal jugular central venous catheter and nasogastric tube. Persistent jehdq-we-gedonlyl size right greater than left pleural effusions. Persistent cardiomegaly with central vascular congestion. Persistent right greater than left lower lung increased opacities. Surgical changes of lumbar spine is partially imaged similar to prior. IMPRESSION: Persistent cardiomegaly with moderate sized right and small sized left pleural effusions. Persistent right mid to lower lung acute infiltrate and/or atelectasis. No significant change from o ne day earlier. [facility], , 08/27/2024 7:10 AM
[2024-08-27 07:19] LABS: Lymphocytes # (M) 1.65 k/uL (1.0-4.8); Monocytes # (M) 0.75 k/uL (0-1.0); Neutrophils % (M) 84 %; Nucleated Red Blood Cells 0 /100 WBC (0-0); Total Cells Counted 100
[2024-08-27 07:21] LABS: Poikilocytosis (M) Present
[2024-08-27] MEDS: AMIODARONE 450 MG in DEXTROSE 5% IN WATER 250 ML IV SCH (10:25)
[2024-08-27] MEDS: AMIODARONE 200 MG TAB PO SCH (10:44)
--- NOTE | 2024-08-27 11:12 | P.PN ---
Subjective Patient is seen for follow-up for acute kidney injury. Maintained on IV Lasix Serum creatinine at 1.1 mg/dL Patient was quite short of breath yesterday. CODE STATUS changed to no code no intubation. Currently maintained on BiPAP. Good urine output noted. Objective - Vital Signs Vital signs: Vital Signs Temp 99.2 F 08/27/24 08:00 Pulse 71 08/27/24 11:00 Resp 26 H 08/27/24 11:00 BP 100/53 08/27/24 11:00 Pulse Ox 98 08/27/24 11:00 FiO2 60 08/27/24 09:24 Intake & Output 08/26/24 08/27/24 08/27/24 18:59 06:59 18:59 Intake Total 151.158 2266.886 541.659 Output Total 1745 2205 1375 Balance -777.693 -1029.114 -833.341 Weight 106 kg Intake: IV 490 120 390 .9NS KVO 120 120 50 Mvi, Adult No.4 with Vit 170 340 K 10 ml Trace (Conc-1Ml/ Dose) 1 ml Sodium Acetate 16 meq Potassium Acetate 14 meq Potassium Phosphate 21 mmol Magnesium Sulfate gm 0.75 gm Calcium Gluconate 1 gm In Amino Acids 5 %/ Dextrose 20 % 1,000 ml @ 75 mls/hr IV .[id number] [facility] Rx#:[id number] Piperacillin-Tazobactam 3 100 .375 gm In Sodium Chloride 0.9% 100 ml @ 25 mls/hr IVPB Q8HR [facility] Rx# :[id number] Potassium Chloride 10 meq 100 In Water For Injection 1 100ml.bag @ 100 mls/hr IVPB Q1H [facility] Rx#: [id number] Intake, IV Titration 307.307 845.886 71.659 Amount Amiodarone 450 mg In 250 Dextrose 5% in Water 250 ml @ 0.5 MG/MIN 16.667 mls/hr IV .Q15H [facility] Rx#: [id number] Dexmedetomidine/0.9% NaCl 71.918 345.886 71.659 (Pmx) 400 mcg In Empty Bag 1 bag @ 0.2 MCG/KG/HR 5.575 mls/hr IV .[id number] [facility] Rx#:[id number] Heparin Sod,Pork in 0.45% 235.389 250 NaCl 25,000 unit In 0.45 % NaCl 1 250ml.bag @ 6. 826 UNITS/KG/HR 10 mls/hr IV .Q24H [facility] Rx#: [id number] Tube Feeding 110 120 50 Other 60 90 30 Output: Drainage 30 Right abdominal ABDIAZIZ drain 30 Urine 1745 2175 1375 Other: Voiding Method Indwelling Catheter Indwelling Catheter Indwelling Catheter ABP, PAP, CO, CI - Last Documented Arterial Blood Pressure 126/54 - Exam Patient is awake, on BiPAP, very weak Examination of the heart S1 and S2 Examination of the lungs bilateral breath sounds are heard Abdomen is dressed Examination lower extremity shows edema 2+ bilateral - Labs CBC & Chem 7: 08/27/24 05:22 08/27/24 09:41 Labs: Abnormal Lab Results - Last 24 Hours (Table) 08/26/24 08/26/24 08/26/24 Range/Units 11:34 18:06 19:57 WBC (3.8-10.6) k/uL RBC (4.30-5.90) m/uL Hgb (13.0-17.5) gm/dL Hct (39.0-53.0) % MCH (25.0-35.0) pg MCHC (31.0-37.0) g/dL RDW (11.5-15.5) % Neutrophils # (Manual) (1.3-7.7) k/uL APTT (22.0-30.0) sec Sodium (137-145) mmol/L BUN (9-20) mg/dL Glucose (74-99) mg/dL POC Glucose (mg/dL) 266 H 334 H 364 H (70-110) mg/dL 08/26/24 08/27/24 08/27/24 Range/Units 23:15 05:18 05:22 WBC 15.0 H (3.8-10.6) k/uL RBC 3.57 L (4.30-5.90) m/uL Hgb 8.8 L (13.0-17.5) gm/dL Hct 30.5 L (39.0-53.0) % MCH 24.8 L (25.0-35.0) pg MCHC 29.1 L (31.0-37.0) g/dL RDW 19.6 H (11.5-15.5) % Neutrophils # (Manual) 12.60 H (1.3-7.7) k/uL APTT (22.0-30.0) sec Sodium 134 L (137-145) mmol/L BUN 49 H (9-20) mg/dL Glucose 329 H (74-99) mg/dL POC Glucose (mg/dL) 336 H (70-110) mg/dL 08/27/24 08/27/24 Range/Units 06:09 07:20 WBC (3.8-10.6) k/uL RBC (4.30-5.90) m/uL Hgb (13.0-17.5) gm/dL Hct (39.0-53.0) % MCH (25.0-35.0) pg MCHC (31.0-37.0) g/dL RDW (11.5-15.5) % Neutrophils # (Manual) (1.3-7.7) k/uL APTT 58.1 H (22.0-30.0) sec Sodium (137-145) mmol/L BUN (9-20) mg/dL Glucose (74-99) mg/dL POC Glucose (mg/dL) 364 H (70-110) mg/dL Microbiology - Last 24 Hours (Table) 08/21/24 14:35 Blood Culture - Final Blood Assessment and Plan Assessment: 1. Acute kidney injury secondary to ATN. Creatinine 1.5 in January 2024 and 2.5 this admission. Renal function improving. Currently being diuresed. Creati nine 1.1. Nonoliguric. No hydronephrosis noted on CT. 2. Perforated gastric ulcer with pneumoperitoneum status post ex lap with closure of ulcer August 13, 2024. 3. Septic shock on vasopressor support. 4. Metabolic acidosis secondary to acute kidney injury and lactic acidosis. Improved. 5. Diabetes mellitus. 6. A-fib with RVR. On oral meds. Cardiology following. 7. Volume overload. Maintained on IV Lasix. Patient remains with significant edema. Zaroxolyn added Plan: Continue with IV Lasix, increased dose to 60 mg every 8 hours Continue with Zaroxolyn Maintained on TPN Monitor electrolytes
--- NOTE | 2024-08-27 11:56 | P.PN ---
Subjective Progress Note Date: 08/27/24 Principal diagnosis: Acute pneumoperitoneum secondary to perforated gastric ulcer status post exploratory laparotomy, abdominal washout and modified Kiet patch procedure postoperative day #15 On 08/14/2024, this patient is being seen for a follow-up. The patient is postop day #2. The patient was found to have a perforated gastric ulcer with pneumoperitoneum. The patient underwent expected laparotomy abdominal washout and a modified Kiet patch. The patient is postop day #2. This morning, the patient remains intubated on mechanical ventilator. The patient on propofol running at 40 mcg/kg/min. Remains on active drinking at 125 cc an hour. Remains on norepinephrine running at 0.11 mcg/kg/min and vasopressin physiologic dose. On a mechanical ventilator, assist-control mode with rate of 18, tidal volume of 500, FiO2 30% with a PEEP of 5. Blood gas with a pH of 7.38 with a pCO2 of 33 and pO2 of 79. The patient's rhythm is atrial fibrillation. The patient has a ABDIAZIZ drain output is minimal at this point, the patient is covered with a combination of Zosyn and Diflucan. The patient received a total of 2 units of packed RBC postop. Blood work from today shows a WBC count of 26, hemoglobin 9.5 and a platelet count of 457. Sodium is at 139, BUN is 18 with a creatinine of 2.5 and a BUN of 71. Serum bicarbonate of 18. The patient does have an underlying acute on top of chronic kidney disease. He is febrile with a temperature of 101.7. He remains tachycardic. On 08/15/2024, the patient is being seen for a follow-up. This morning, the patient is still intubated on the mechanical ventilator. The patient sedated on propofol which is running at 40 mcg/kg/min. Remains on a mechanical ventilator assist-control mode at rate of 18, tidal volume of 500, FiO2 of 30% with a PEEP of 5. Blood gas from today showed a pH of 7.45 with a pCO2 of 35 and pO2 of 75. Chest x-ray from today shows ET tube in adequate location. Findings are consistent with CHF and volume overload and some worsening in the left basilar opacity/atelectasis. Hemodynamically, the patient remains in atrial fibrillation. Heart rate is under better control. The patient is on Cardizem drip that this has been weaned down to 2.5 mg an hour and the patient remains on IV heparin this was tolerated yesterday. At the same time, the patient remains on norepinephrine running at 0.1 mcg/kg/min and vasopressin physiologic dose. Lactated Ringer's running at a rate of 125 cc an hour and the patient is a positive fluid balance of 2.4 L. ABDIAZIZ output is minimal in the order of 5 to 10 cc over the past 12 hours. NG output is also minimal. Rest of the blood work showed a white cell count of 27.7, hemoglobin 8.5 and a platelet count of 407. The sodium levels at 141, BUN 58 with a creatinine of 2.1. Serum bicarb is at 23 and the chloride is 109. Glucose is 870. The blood cultures are still negative.Echocardiogram showed a impaired LV function with ejection fraction of 35 to 40%. Right ventricular systolic pressure is at 54. 08/16/2024, patient is being seen for a follow-up in the intensive care unit. This morning, the patient remains intubated on mechanical ventilator. The patient sedated on propofol running at 40 mcg/kg/min. The patient is on assist- control mode with rate of 18, tidal volume of 500, FiO2 30% with a PEEP of 5. Blood gas showed a pH of 7.46 with a pCO2 of 37 and pO2 of 71. Chest x-ray from this morning shows worsening pulmonary vascular congestion and cardiomegaly with development of bilateral pleural effusions. There are some atelectatic changes in lung bases bilaterally. The patient was started on TPN which is currently running at 30 cc an hour. IV fluids are currently at KVO. Output from the NG tube is minimal in the order of 10 cc over the past 8 hours, output from the ABDIAZIZ is minimal in the order of 10 cc an hour. The patient is in atrial fibrillation. The patient is having occasional PVCs. Remains on Cardizem drip at 2.5 mg an hour and the patient is also on IV heparin. Norepinephrine is running at 0.09 mcg/kg/min. The white cell count is improved and is currently down to 20 with a hemoglobin of 8 and a platelet count of 345. BUN is 49 with a creatinine of 1.87. Sodium levels at 142, potassium level is at 3.7, chloride is 110. Remains on a combination of Zosyn and Diflucan. On 08/17/2024, patient is being seen for a follow-up. This morning, the patient remains on propofol which is running at 40 mcg/kg/min. The patient was given sedation holiday yesterday. This was reported as the patient started having significant activities. The cardiac rhythm remains atrial fibrillation with controlled rate. This morning, the patient is calm and comfortable on propofol. He is on assist-control mode of mechanical ventilation at rate of 14, tidal volume of 500, FiO2 of 30% with a PEEP of 5. IV fluids are currently at KVO and the patient remains on TPN at a rate of 50 cc an hour. The patient is on low-dose norepinephrine running at 0.01 mcg/kg/min. The blood gas showed a pH of 7.46 with a pCO2 35 and pO2 of 70. Chest x-ray shows atelectatic changes and bilateral pleural effusions. NG tube output is in order of 100 cc over the past 8 hours. ABDIAZIZ output is in the order of 60 cc over the past 12 hours. The patient remains on IV heparin. The patient is off the Cardizem drip for now. The rest of the blood work shows a white cell count of 18, hemoglobin of 7.5 and a platelet count of 305. The sodium levels at 142, potassium level 3.8, chloride 112 and the bicarbonate is a 24. BUN 39 and a creatinine of 1.6. Blood sugars are elevated and the Lantus insulin dose will be further adjusted. No fever. No other significant events. Abdominal wound is dry clean and intact. 08/18/2024, the patient is being seen for a follow-up. She had another sedation holiday because of tachypnea and restlessness and asynchrony with a mechanical ventilator. This morning, he is on propofol. Will do a gradual propofol wean and use Precedex if needed. He is currently on propofol running at 20 mcg/kg/min. Remains on assist-control mode at rate of 14, tidal volume of 500, FiO2 of 30% with a PEEP of 5. Blood gas showed a pH of 7.43 with a pCO2 of 39 and pO2 of 88. Chest x-ray is unchanged and there is atelectatic change in the fusion lung base bilaterally. Remains on TPN for nutritional support with rate of 50 cc an hour. IV fluids are KVO. NG output is in the order of 200 cc over the past 24 hours. ABDIAZIZ output is in the order of 45 cc. Remains on norepinephrine at a dose of 0.01 mcg/kg/min. The fluid balance is -1.2 L over the past 24 hours and the patient remains on IV Lasix 40 mg every 12 hours. The patient is also on Zosyn and Diflucan. Afebrile. Hemodynamically stable with low-dose pressors. The white cell count is 18, hemoglobin 7.4 and a platelet count of 335. The BUN is 38 with a creatinine of 1.4. Sodium is at 142, bicarb is at 24. Blood sugars at 230 and Lantus dose has been modified. No other significant events overnight. On 08/19/2024, the patient is being seen for a follow-up. Remains intubated on mechanical ventilatory patient has been off propofol for the past 24 hours. He is opening his eyes and moving. Nevertheless, is not following commands yet. Bobbi coronado continues to be quite sedated. As such, no weaning trials have been done awaiting further improvement in his mentation. Cardiac rhythm is atrial fibrillation and the patient remains on IV heparin. Rate is controlled. Remains on low-dose norepinephrine which is running at 0.05 mcg/kg/min. He is on TPN at rate of 80 cc an hour. He is on the IV Lasix 40 mg every 12 hours and the fluid balance -238 cc over the past 24 hours. He is on the mechanical ventilator assist-control mode at rate of 14, tidal volume of 500, FiO2 of 30% with a PEEP of 5. Blood gas showed a pH of 7.43 with a pCO2 of 39 and pO2 of 95. NG tube output has been 50 cc over the past 12 hours. ABDIAZIZ output is minimal. Blood work from today shows a white cell count of 17, hemoglobin 7.3 and a platelet count of 319. Sodium is at 143, BUN 37 and the creatinine is at 1.45. Remains on Zosyn and Diflucan. Blood sugar control with Lantus. On 08/20/2024, the patient is off sedation the patient has been off propofol for the past 48 hours. He is still not fully awake. He moves around. Withdraws to painful stimulation. At times, he gets slightly restless. Nevertheless, he is not awake and he is not following any commands and his level of alertness remains quite diminished. For that reason, I recommended a CAT scan of the head to investigate ongoing altered mentation. The patient remains on the mechanical ventilator assist-control mode rate of 14, tidal volume of 500, FiO2 30% with a PEEP of 5. Blood gas showed a pH of 7.44 with pCO2 41 and pO2 of 97. Fluid balance is negative to 11 cc over the past 24 hours. Hemoglobin stable at 7.1 and the creatinine is down to 1.3. The patient remains on low-dose norepinephrine running at 0.02 mcg/kg/min. NG tube output is in the order of 150 cc over the past 24 hours and the patient was started on TPN for additional support. IV fluids are currently at KVO. The patient continues to be in atrial fibrillation with a controlled rate. The patient is having frequent ectopies. The patient remains on IV heparin. Antibiotic coverage include Zosyn and antico agulation with Diflucan. He is being diuresed with IV Lasix 40 mg p.o. 12 hours and a dose will be modified. The patient is on Lantus insulin 20 units twice a day and sliding scale coverage. No other significant events overnight. Patient was evaluated today on 08/21/2024, remains in the ICU intubated and mechanically ventilated, on assist-control rate of 14 tidal volume 500 FiO2 30% and PEEP of 5. Patient is now postoperative day #8, his ABG showed a pO2 of 136 pCO2 4 0 pH of 7.47 hence I did not make any ventilator changes. Patient remains on TPN, he is off propofol today, and I would like to give him a trial of weaning if we need to place on Precedex, will keep placed on Precedex, and give the patient a trial of weaning possibly today. We tried this today, and the patient became extremely agitated restless, he had to be placed back on mechanical ventilation/assist-control rate, he was tried on a pressure support of 10 and CPAP, tolerated for less than half an hour. But then as he got agitated patient required Dilaudid, and now I am recommending Precedex trial on this patient. His hemoglobin today is 6.9, hence he will receive 1 unit of packed RBCs. Remains on Zosyn and Diflucan, remains on Lasix 40 mg IV push every 8 hours. His ABDIAZIZ drain is showing minimal drainage, CT of the abdomen is negative. Patient is now postoperative day #8, had a perforated gastric ulcer. The goal today is to hopefully address weaning, his chest x-ray shows a good sized right-sided pleural effusion, may eventually require thoracentesis. Continues to have leukocytosis with WC BC count of 13.7 hemoglobin 6.9 basic metabolic profile is normal bicarb is 32 BUN is 44 creatinine 1.28, steadily improving compared to creatinine of 2.55 on admission. Patient was seen today on 08/22/2024, remains in the ICU, intubated and mechanically ventilated. On assist-control rate of 14 tidal volume 500 FiO2 30% PEEP of 5 ABG showed a pO2 of 79 pCO2 37 pH of 7.48, hence patient was kept on the same vent settings, and considering the patient is calm on Precedex today, I am recommending that we give him a trial of pressure support of 12 and CPAP. If tolerated will go to a pressure support of 8 and CPAP for about half an hour and then if tolerated we could consider checking weaning parameters, ABG on pressure support of 8 and CPAP, and if he continues to do well may even proceed to extubation. His hemoglobin today is 9.1, patient received a total of 4 units of packed RBCs since this admission. Patient is still requiring norepinephrine at 0.03 mcg per kilo per minute he is also on TPN at 80 cc/h he is on heparin drip, Precedex, and off propofol. Labs were all reviewed, WBC count is 13.1 hemoglobin is 9.1. Basic metabolic profile is normal BUN is 44 creatinine 1.17, steadily improving since his admission with creatinine of 2.55 initially. Chest x-ray showed right lower lobe atelectasis and possibly a small right-sided pleural effusion Patient was seen today on 08/23/2024, remains in ICU, intubated, mechanically ventilated, he is on assist-control rate of 14 tidal volume 500 FiO2 30% PEEP of 5. Yesterday the patient tolerated about 7 hours of pressure support of 8 and CPAP, however patient had very poor weaning parameters very marginal, and he was noted to be extremely weak, and sleepy hence patient was not extubated yesterday and I will try to do the same thing today. As a matter fact patient went for 1 hour on pressure support of 10 and CPAP, did fairly well except he remains very weak, and sleepy, and I did not feel that the patient is ready to be extubated. In addition to this the patient does have a temp of 102, white count is up to 14, and debating whether to consider CT of the abdomen and pelvis, although clinically his abdominal exam seems to be relatively benign. No tenderness, no rebound, no guarding. Patient is not requiring any norepinephrine at this point, however he is on heparin he is on Precedex at 0.3 TPN at 80 mL/h, and his chest x-ray continues to show right lower lobe atelectasis and small pleural effusion. Patient is on fluconazole and Zosyn. Again abdomen is soft, and does not seem to be surgical at this point. ABG showed a pO2 of 68 pCO2 37 pH of 7.47 and this was done on a pressure support of 10 and CPAP after 1 hour. WBC count is 14.3 hemoglobin 9.8 electrolytes are normal BUN is 45 creatinine 1.32. Patient was seen today on 08/24/2024, patient remains intubated and mechanically ventilated, remains on the same vent settings including tidal volume of 500 rate 14 FiO2 30% and PEEP of 5. However as I walked in to see the patient, minutes earlier apparently the patient extubated himself, and the tube has to be ad vanced by respiratory therapy back, and it was already pulled almost 5 cm proximally. Patient is having anxiety and agitation, there is some air leak, patient is not getting his tidal volumes, hence I recommended that we proceed to extubating the patient to BiPAP. Patient is following instructions, but he seems to be generally weak and slow. He is on Precedex he is on TPN, he is also on heparin and norepinephrine is presently on hold. Reviewed his chest x-ray today, showed mostly atelectasis and small right-sided pleural effusion which may or may not require thoracentesis. Reviewed his labs, and ABG this morning showed a pO2 of 68 pCO2 32 pH of 7.50 his basic metabolic profile is normal. Creatinine 1.26, blood sugar is 238. Considering the patient was marginal for extubation and considering the event this morning, I went ahead and recommended extubating the patient to BiPAP. And this was done, patient seemed to tolerate that better than being on mechanical ventilation at this point. Patient was seen today on 08/25/2024, patient remains in the ICU very marginal and remains quite ill. He tolerated the extubation so far, but the patient is not quite ready to be transferred out of the ICU as he remains very marginal mostly with his profound weakness and unable to cough vigorously to clear his secretions. Chest x-ray continues to show right lower lobe atelectasis and pleural effusion hence I am recommending an ultrasound of the chest may consider thoracentesis on this patient. In the meantime I discussed his condition with surgery today, seem to be concerned about his abdomen and recommending CT of the abdomen pelvis with oral contrast which will be done today. Today the patient is on 4 L nasal cannula, he is on Precedex because of agitation yesterday he is on 0.3 mcg/kg/h he is also on TPN, Zosyn and Eraxis and norepinephrine is presently on hold. Ultrasound of the chest did not actually show a right-sided pocket or fluid hence no marking was placed, and I believe the findings are mostly findings of atelectasis no pleural effusion that is worth pursuing at this point. Patient is having worsening leukocytosis with WBC of 18.8 hemoglobin is 8.7 his electrolytes are normal renal profile is normal BUN is 44 creatinine 1.17 PTT is 47.2 Seen today on 08/26/2024, patient is presently on BiPAP, 12/5/60%. Remains on Precedex at 0.5 mg/kg/h. Patient is on amiodarone as he went into atrial fibrillation with RVR earlier this morning and I recommended amiodarone bolus and amiodarone drip. His amiodarone is at 0.5 mg/min. He patient is on heparin, TPN at 85 cc/h vital HP at 10 mL/h. Remains on Zosyn, patient is extremely weak, arousable but seems to be very weak, follows very simple instructions only. His chest x-ray continues to show right lower lobe consolidation no pleural effusion noted on ultrasound. Patient is having difficulty clearing his secretions, does not seem to have a vigorous cough to clear his airways. And I had a feeling that the patient may end up going back on mechanical ventilation. Will have to address his CODE STATUS with the family as the patient seems to have very poor prognostic picture, and seems to have failure to thrive. His CT of the abdomen yesterday showed no evidence of any surgical process. Remains empirically on Zosyn. Remains on Lasix 40 mg IV push every 8 hours, he has good urine output. Patient is also on Eraxis. And now he is on amiodarone which was added this morning. Looking at his overall clinical picture, I have a strong feeling that the patient may end up requiring reintubation mechanical ventilation, at this point he is marginal. And if he does end up intubated and mechanically ventilated, patient will need to have tracheostomy and PEG tube placement down the line. WBC count today is 16.7 hemoglobin is 8.7 PTT is 57 electrolytes are normal BUN is 44 creatinine 1.19 blood sugar is 274 Seen today on 08/27/2024, patient's clinical status deteriorated and worsened yesterday as expected, I was notified about this patient desaturating down to the 70s, hence I recommended increasing his FiO2, kept him on BiPAP 18/11, actually I recommended immediate intubation as she remained the is keeping him full code. However shortly after I found that the wanted him to be D NR, and did not want him to be intubated. Hands kept him on BiPAP he is on 18/11/60% right now he is on Precedex at 1 mcg/kg/h heparin drip, TPN at 85 cc/h amiodarone at 0.5 mg/min vital HP at 10 cc/h patient remains on Lasix 40 IV push acute 8 hours and he is also on cefepime. WBC count today is 15 hemoglobin 8.8 PTT is 58 electrolytes are normal BUN is 49 creatinine 1.18 blood sugar is 329. Chest x-ray continues show evidence of cardiomegaly and right-sided consolidation/atelectasis. Objective - Vital Signs Vital signs: Vital Signs Temp 99.2 F 08/27/24 08:00 Pulse 66 08/27/24 11:45 Resp 26 H 08/27/24 11:00 BP 100/53 08/27/24 11:00 Pulse Ox 98 08/27/24 11:00 FiO2 60 08/27/24 11:31 Intake & Output 08/26/24 08/27/24 08/27/24 18:59 06:59 18:59 Intake Total 074.140 3400.886 541.659 Output Total 1745 2205 1375 Balance -777.693 -1029.114 -833.341 Weight 106 kg Intake: IV 490 120 390 .9NS KVO 120 120 50 Mvi, Adult No.4 with Vit 170 340 K 10 ml Trace (Conc-1Ml/ Dose) 1 ml Sodium Acetate 16 meq Potassium Acetate 14 meq Potassium Phosphate 21 mmol Magnesium Sulfate gm 0.75 gm Calcium Gluconate 1 gm In Amino Acids 5 %/ Dextrose 20 % 1,000 ml @ 75 mls/hr IV .[id number] [facility] Rx#:[id number] Piperacillin-Tazobactam 3 100 .375 gm In Sodium Chloride 0.9% 100 ml @ 25 mls/hr IVPB Q8HR [facility] Rx# :[id number] Potassium Chloride 10 meq 100 In Water For Injection 1 100ml.bag @ 100 mls/hr IVPB Q1H [facility] Rx#: [id number] Intake, IV Titration 307.307 845.886 71.659 Amount Amiodarone 450 mg In 250 Dextrose 5% in Water 250 ml @ 0.5 MG/MIN 16.667 mls/hr IV .Q15H [facility] Rx#: [id number] Dexmedetomidine/0.9% NaCl 71.918 345.886 71.659 (Pmx) 400 mcg In Empty Bag 1 bag @ 0.2 MCG/KG/HR 5.575 mls/hr IV .[id number] [facility] Rx#:[id number] Heparin Sod,Pork in 0.45% 235.389 250 NaCl 25,000 unit In 0.45 % NaCl 1 250ml.bag @ 6. 826 UNITS/KG/HR 10 mls/hr IV .Q24H [facility] Rx#: [id number] Tube Feeding 110 120 50 Other 60 90 30 Output: Drainage 30 Right abdominal ABDIAZIZ drain 30 Urine 1745 2175 1375 Other: Voiding Method Indwelling Catheter Indwelling Catheter Indwelling Catheter ABP, PAP, CO, CI - Last Documented Arterial Blood Pressure 126/54 - Exam GENERAL EXAM: Revealed 79-year-old white male on BiPAP 14/6/70%, changed to 60% FiO2 HEAD: Normocephalic. Atraumatic EYES: PERRLA, EOMI, nonicteric NOSE: Clear with pink turbinates. Nasogastric tube remains in place THROAT: No erythema or exudates. NECK: No masses, no JVD. Right IJ triple-lumen catheter in place. CHEST: No chest wall deformity. LUNGS: Crackles at the bases mostly at the right base. CVS: S1 and S irregular consistent with atrial fibrillation with no audible murmur, irregular rhythm. Patient is now on amiodarone ABDOMEN: Abdominal dressing dry and intact. ABDIAZIZ drain in place. No hepatosplenomegaly. No rebound, no guarding. No tenderness. NERVOUS SYSTEM: Patient seems to be generally weak, profound weakness is noted, arousable, not following instructions today. EXTREMITIES: 2+ bipedal edema, no cyanosis. - Labs CBC & Chem 7: 08/27/24 05:22 08/27/24 09:41 Labs: Abnormal Lab Results - Last 24 Hours (Table) 08/26/24 08/26/24 08/26/24 Range/Units 18:06 19:57 23:15 WBC (3.8-10.6) k/uL RBC (4.30-5.90) m/uL Hgb (13.0-17.5) gm/dL Hct (39.0-53.0) % MCH (25.0-35.0) pg MCHC (31.0-37.0) g/dL RDW (11.5-15.5) % Neutrophils # (Manual) (1.3-7.7) k/uL APTT (22.0-30.0) sec Sodium (137-145) mmol/L BUN (9-20) mg/dL Glucose (74-99) mg/dL POC Glucose (mg/dL) 334 H 364 H 336 H (70-110) mg/dL 08/27/24 08/27/24 08/27/24 Range/Units 05:18 05:22 06:09 WBC 15.0 H (3.8-10.6) k/uL RBC 3.57 L (4.30-5.90) m/uL Hgb 8.8 L (13.0-17.5) gm/dL Hct 30.5 L (39.0-53.0) % MCH 24.8 L (25.0-35.0) pg MCHC 29.1 L (31.0-37.0) g/dL RDW 19.6 H (11.5-15.5) % Neutrophils # (Manual) 12.60 H (1.3-7.7) k/uL APTT (22.0-30.0) sec Sodium 134 L (137-145) mmol/L BUN 49 H (9-20) mg/dL Glucose 329 H (74-99) mg/dL POC Glucose (mg/dL) 364 H (70-110) mg/dL 08/27/24 Range/Units 07:20 WBC (3.8-10.6) k/uL RBC (4.30-5.90) m/uL Hgb (13.0-17.5) gm/dL Hct (39.0-53.0) % MCH (25.0-35.0) pg MCHC (31.0-37.0) g/dL RDW (11.5-15.5) % Neutrophils # (Manual) (1.3-7.7) k/uL APTT 58.1 H (22.0-30.0) sec Sodium (137-145) mmol/L BUN (9-20) mg/dL Glucose (74-99) mg/dL POC Glucose (mg/dL) (70-110) mg/dL Microbiology - Last 24 Hours (Table) 08/21/24 14:35 Blood Culture - Final Blood Assessment and Plan Assessment: Impression: Acute hypoxic respiratory failure secondary to acute surgical abdomen and abdominal sepsis with septic shock Acute pneumoperitoneum secondary to perforated gastric ulcer, status post exploratory laparotomy abdominal washout and modified Kiet patch postoperative day #15 Acute abdominal sepsis and septic shock remains on antibiotics, remains on norepinephrine at 0.03 mcg/kg/min., Remains on antibiotics including Zosyn and Diflucan Hypotension, secondary to abdominal sepsis and septic shock still requiring norepinephrine Hypoalbuminemia with edema and third spacing Severe LV dysfunction with ejection fraction of 35% Acute blood loss anemia patient received so far 2 units of packed RBCs since admission Leukocytosis secondary to abdominal sepsis Acute kidney injury secondary to sepsis and septic shock Chronic atrial fibrillation, rate controlled History of hypertension History of prostate cancer Critical illness polyneuropathy, and failure to thrive Recommendation: Continue BiPAP Continue present supportive care measures Continue amiodarone Continue Zosyn and Eraxis Continue to hold narcotics and sedatives,, continue. Precedex Continue GI and DVT prophylaxis, Continue diuretic Continue TPN at 80 cc/h/nutritional support Continue insulin and sliding scale coverage Continue hemodynamics monitoring and address with norepinephrine if necessary. Continue to monitor daily CBC and hemoglobin transfuse if necessary. Fully agree with CODE STATUS/DNR. Overall prognosis is extremely poor and guarded Family may consider comfort care measures depending how the clinical scenario goes in the next 24 hours. Patient remains critically ill Critical care time is 32 minutes Time with Patient: Greater than 30
--- NOTE | 2024-08-27 12:03 | P.PN ---
Subjective Progress Note Date: 08/27/24 The patient is a 79-year-old male who is currently admitted for perforated gastric ulcer and patient had previously been consulted for atrial fibrillation management. We had signed off on the case, however after to the patient was extubated he again developed A-fib with RVR. He was started on an amiodarone drip and is now rate controlled. Interviewed and examined and comfortably on BiPAP. He continues to have labored breathing but is less anxious today. GENERAL: Well-appearing, ill-nourished and mild respiratory distress. Currently on BiPAP NECK: Supple without JVD or thyromegaly. LUNGS: Breath sounds coarse to auscultation bilaterally. Respiration equal and unlabored. Bilateral rhonchi. HEART: Irregular rate and rhythm without murmurs, rubs or gallops. S1 and S2 heard. EXTREMITIES: Normal range of motion, mild edema. No clubbing or cyanosis. Peripheral pulses intact and strong. TELEMETRY: Atrial fibrillation, rate controlled LABS: WBC 15.0, hemoglobin 8.8, hematocrit 30.5, platelet 396, sodium 137, potassium 3.9, BUN 49, creatinine 1.18 IMPRESSION: Persistent atrial fibrillation Perforated gastric ulcer, status post exploratory laparotomy with modified Kiet patch repair Cardiomyopathy, EF 35 to 40% Pulmonary hypertension Hypoxic respiratory failure, currently ventilated Anemia, defer to primary team PLAN: Patient to oral amiodarone Continue supportive treatment Patient is now DNR CODE STATUS No further recommendations from the cardiac standpoint I am dictating on behalf of Dr Rui Pham's history/physical and assessment/plan. Objective - Vital Signs Vital signs: Vital Signs Temp 99.2 F 08/27/24 08:00 Pulse 66 08/27/24 11:45 Resp 26 H 08/27/24 11:00 BP 100/53 08/27/24 11:00 Pulse Ox 98 08/27/24 11:00 FiO2 60 08/27/24 11:31 Intake & Output 08/26/24 08/27/24 08/27/24 18:59 06:59 18:59 Intake Total 818.767 4072.886 541.659 Output Total 1745 2205 1375 Balance -777.693 -1029.114 -833.341 Weight 106 kg Intake: IV 490 120 390 .9NS KVO 120 120 50 Mvi, Adult No.4 with Vit 170 340 K 10 ml Trace (Conc-1Ml/ Dose) 1 ml Sodium Acetate 16 meq Potassium Acetate 14 meq Potassium Phosphate 21 mmol Magnesium Sulfate gm 0.75 gm Calcium Gluconate 1 gm In Amino Acids 5 %/ Dextrose 20 % 1,000 ml @ 75 mls/hr IV .[id number] [facility] Rx#:[id number] Piperacillin-Tazobactam 3 100 .375 gm In Sodium Chloride 0.9% 100 ml @ 25 mls/hr IVPB Q8HR [facility] Rx# :[id number] Potassium Chloride 10 meq 100 In Water For Injection 1 100ml.bag @ 100 mls/hr IVPB Q1H [facility] Rx#: [id number] Intake, IV Titration 307.307 845.886 71.659 Amount Amiodarone 450 mg In 250 Dextrose 5% in Water 250 ml @ 0.5 MG/MIN 16.667 mls/hr IV .Q15H [facility] Rx#: [id number] Dexmedetomidine/0.9% NaCl 71.918 345.886 71.659 (Pmx) 400 mcg In Empty Bag 1 bag @ 0.2 MCG/KG/HR 5.575 mls/hr IV .[id number] [facility] Rx#:[id number] Heparin Sod,Pork in 0.45% 235.389 250 NaCl 25,000 unit In 0.45 % NaCl 1 250ml.bag @ 6. 826 UNITS/KG/HR 10 mls/hr IV .Q24H [facility] Rx#: [id number] Tube Feeding 110 120 50 Other 60 90 30 Output: Drainage 30 Right abdominal ABDIAZIZ drain 30 Urine 1745 2175 1375 Other: Voiding Method Indwelling Catheter Indwelling Catheter Indwelling Catheter ABP, PAP, CO, CI - Last Documented Arterial Blood Pressure 126/54 - Labs CBC & Chem 7: 08/27/24 05:22 08/27/24 09:41 Labs: Abnormal Lab Results - Last 24 Hours (Table) 08/26/24 08/26/24 08/26/24 Range/Units 18:06 19:57 23:15 WBC (3.8-10.6) k/uL RBC (4.30-5.90) m/uL Hgb (13.0-17.5) gm/dL Hct (39.0-53.0) % MCH (25.0-35.0) pg MCHC (31.0-37.0) g/dL RDW (11.5-15.5) % Neutrophils # (Manual) (1.3-7.7) k/uL APTT (22.0-30.0) sec Sodium (137-145) mmol/L BUN (9-20) mg/dL Glucose (74-99) mg/dL POC Glucose (mg/dL) 334 H 364 H 336 H (70-110) mg/dL 08/27/24 08/27/24 08/27/24 Range/Units 05:18 05:22 06:09 WBC 15.0 H (3.8-10.6) k/uL RBC 3.57 L (4.30-5.90) m/uL Hgb 8.8 L (13.0-17.5) gm/dL Hct 30.5 L (39.0-53.0) % MCH 24.8 L (25.0-35.0) pg MCHC 29.1 L (31.0-37.0) g/dL RDW 19.6 H (11.5-15.5) % Neutrophils # (Manual) 12.60 H (1.3-7.7) k/uL APTT (22.0-30.0) sec Sodium 134 L (137-145) mmol/L BUN 49 H (9-20) mg/dL Glucose 329 H (74-99) mg/dL POC Glucose (mg/dL) 364 H (70-110) mg/dL 08/27/24 Range/Units 07:20 WBC (3.8-10.6) k/uL RBC (4.30-5.90) m/uL Hgb (13.0-17.5) gm/dL Hct (39.0-53.0) % MCH (25.0-35.0) pg MCHC (31.0-37.0) g/dL RDW (11.5-15.5) % Neutrophils # (Manual) (1.3-7.7) k/uL APTT 58.1 H (22.0-30.0) sec Sodium (137-145) mmol/L BUN (9-20) mg/dL Glucose (74-99) mg/dL POC Glucose (mg/dL) (70-110) mg/dL Microbiology - Last 24 Hours (Table) 08/21/24 14:35 Blood Culture - Final Blood
[2024-08-27 12:24] LABS: Glucose,Whole Blood 339 mg/dL (70-110)
--- NOTE | 2024-08-27 12:25 | P.PN ---
Subjective Patient seen and evaluated at bedside. Patient doing well, recently extubated, however patient is febrile and still somewhat tender in the abdomen. Objective - Vital Signs Vital signs: Vital Signs Temp 99.2 F 08/27/24 08:00 Pulse 66 08/27/24 11:45 Resp 26 H 08/27/24 11:00 BP 100/53 08/27/24 11:00 Pulse Ox 98 08/27/24 11:00 FiO2 60 08/27/24 11:31 Intake & Output 08/26/24 08/27/24 08/27/24 18:59 06:59 18:59 Intake Total 225.367 5567.886 561.659 Output Total 1745 2205 1675 Balance -777.693 -1029.114 -1113.341 Weight 106 kg Intake: IV 490 120 400 .9NS KVO 120 120 60 Mvi, Adult No.4 with Vit 170 340 K 10 ml Trace (Conc-1Ml/ Dose) 1 ml Sodium Acetate 16 meq Potassium Acetate 14 meq Potassium Phosphate 21 mmol Magnesium Sulfate gm 0.75 gm Calcium Gluconate 1 gm In Amino Acids 5 %/ Dextrose 20 % 1,000 ml @ 75 mls/hr IV .[id number] [facility] Rx#:[id number] Piperacillin-Tazobactam 3 100 .375 gm In Sodium Chloride 0.9% 100 ml @ 25 mls/hr IVPB Q8HR [facility] Rx# :[id number] Potassium Chloride 10 meq 100 In Water For Injection 1 100ml.bag @ 100 mls/hr IVPB Q1H [facility] Rx#: [id number] Intake, IV Titration 307.307 845.886 71.659 Amount Amiodarone 450 mg In 250 Dextrose 5% in Water 250 ml @ 0.5 MG/MIN 16.667 mls/hr IV .Q15H [facility] Rx#: [id number] Dexmedetomidine/0.9% NaCl 71.918 345.886 71.659 (Pmx) 400 mcg In Empty Bag 1 bag @ 0.2 MCG/KG/HR 5.575 mls/hr IV .[id number] [facility] Rx#:[id number] Heparin Sod,Pork in 0.45% 235.389 250 NaCl 25,000 unit In 0.45 % NaCl 1 250ml.bag @ 6. 826 UNITS/KG/HR 10 mls/hr IV .Q24H [facility] Rx#: [id number] Tube Feeding 110 120 60 Other 60 90 30 Output: Drainage 30 Right abdominal SIS drain 30 Urine 1745 2175 1675 Other: Voiding Method Indwelling Catheter Indwelling Catheter Indwelling Catheter ABP, PAP, CO, CI - Last Documented Arterial Blood Pressure 126/54 - Exam gen: nad cv: rrr pul: non labored on vent abd: soft, distended, tenderness to palpation c/d/i sis drain serosang - Labs CBC & Chem 7: 08/27/24 05:22 08/27/24 09:41 Labs: Abnormal Lab Results - Last 24 Hours (Table) 08/26/24 08/26/24 08/26/24 Range/Units 18:06 19:57 23:15 WBC (3.8-10.6) k/uL RBC (4.30-5.90) m/uL Hgb (13.0-17.5) gm/dL Hct (39.0-53.0) % MCH (25.0-35.0) pg MCHC (31.0-37.0) g/dL RDW (11.5-15.5) % Neutrophils # (Manual) (1.3-7.7) k/uL APTT (22.0-30.0) sec Sodium (137-145) mmol/L BUN (9-20) mg/dL Glucose (74-99) mg/dL POC Glucose (mg/dL) 334 H 364 H 336 H (70-110) mg/dL 08/27/24 08/27/24 08/27/24 Range/Units 05:18 05:22 06:09 WBC 15.0 H (3.8-10.6) k/uL RBC 3.57 L (4.30-5.90) m/uL Hgb 8.8 L (13.0-17.5) gm/dL Hct 30.5 L (39.0-53.0) % MCH 24.8 L (25.0-35.0) pg MCHC 29.1 L (31.0-37.0) g/dL RDW 19.6 H (11.5-15.5) % Neutrophils # (Manual) 12.60 H (1.3-7.7) k/uL APTT (22.0-30.0) sec Sodium 134 L (137-145) mmol/L BUN 49 H (9-20) mg/dL Glucose 329 H (74-99) mg/dL POC Glucose (mg/dL) 364 H (70-110) mg/dL 08/27/24 Range/Units 07:20 WBC (3.8-10.6) k/uL RBC (4.30-5.90) m/uL Hgb (13.0-17.5) gm/dL Hct (39.0-53.0) % MCH (25.0-35.0) pg MCHC (31.0-37.0) g/dL RDW (11.5-15.5) % Neutrophils # (Manual) (1.3-7.7) k/uL APTT 58.1 H (22.0-30.0) sec Sodium (137-145) mmol/L BUN (9-20) mg/dL Glucose (74-99) mg/dL POC Glucose (mg/dL) (70-110) mg/dL Microbiology - Last 24 Hours (Table) 08/21/24 14:35 Blood Culture - Final Blood Assessment and Plan Assessment: 1. Perforated gastric ulcer status post exploratory laparotomy and modified Kiet patch 2. Hypokalemia improved 3. A-fib on IV heparin Prognosis is poor as patient is having continued poor respiratory reserve currently on bipap, made patient dnr/dni PLAN: -advance tube feeds to goal as tolerated -Continue TPN for nutrition support -Continue ICU management -Continue supportive care -Continue antibiotics -Continue to monitor SIS drain output -Continue IV Protonix -Continue to monitor hemoglobin -Continue IV Tylenol for pain management and fevers Time with Patient: Less than 30
[2024-08-27] MEDS: FUROSEMIDE 10 MG/ML 10 ML VIAL IV SCH (15:58)
[2024-08-27 18:03] LABS: Glucose,Whole Blood 303 mg/dL (70-110)
[2024-08-27] MEDS: INSULIN GLARGINE (LANTUS) 100 UNIT/ML SYR SQ SCH (21:12)
[2024-08-27 23:47] LABS: Glucose,Whole Blood 320 mg/dL (70-110)
--- NOTE | 2024-08-28 00:57 | PN ---
PROGRESS NOTE DATE OF SERVICE: 08/27/2024 SUBJECTIVE: This 79-year-old gentleman admitted after perforated gastric ulcers, was improving initially, but now the patient has taken a turn for the worse. The patient is on BiPAP. The patient is extremely weak and emaciated. The patient is currently no code. PAST MEDICAL HISTORY: Could not be taken. REVIEW OF SYSTEMS: Could not be taken. CURRENT MEDICATIONS: Reviewed. PHYSICAL EXAMINATION: VITAL SIGNS: Pulse 65, blood pressure 97/53, and respirations 26. HEENT: Conjunctivae normal. CARDIOVASCULAR: S1, S2. RESPIRATION: Breath sounds diminished at the bases. A few scattered rhonchi. ABDOMEN: Soft. NERVOUS SYSTEM: Diffusely weak. LABORATORY DATA: Glucose 389. ASSESSMENT: 1. Perforated gastric ulcer with pneumoperitoneum, status post surgery with patch. 2. Septic shock. 3. Acute hypoxic respiratory failure. 4. Right lower lobe pneumonia with pleural effusion. 5. Congestive heart failure acute exacerbation, ejection fraction 35% to 40%. 6. Multiple complex medical issues. RECOMMENDATIONS: Recommend to continue current management and symptomatic treatment. Recommend increase the dose of insulin and continue to monitor. Sugars consistently elevated. Further recommendations to follow. MMODL / IJN: [id number] /
[2024-08-28 06:46] LABS: Glucose,Whole Blood 374 mg/dL (70-110)
[2024-08-28 06:52] LABS: African American GFR (CKD) 61 (>60 ml/min/1.73 sqM); Anion Gap 7 mmol/L; Blood Urea Nitrogen 54 mg/dL (9-20); Calcium 9.1 mg/dL (8.4-10.2); Carbon Dioxide 33 mmol/L (22-30); Chloride 93 mmol/L (98-107); Glucose 337 mg/dL (74-99); Non-African American GFR(CKD) 53 (>60 ml/min/1.73 sqM); Phosphorus 3.8 mg/dL (2.5-4.5); Sodium 133 mmol/L (137-145)
--- NOTE | 2024-08-28 09:44 | P.PN ---
Subjective Patient is seen in follow-up for acute kidney injury. Renal function fairly stable. Nonoliguric. On IV Lasix. Receiving TPN. On BiPAP. Vital signs stable. General: Resting in bed. HEENT: On BiPAP. LUNGS: Scattered rhonchi. HEART: Regular rate and rhythm. EXTREMITITES: 1+ edema. Objective - Vital Signs Vital signs: Vital Signs Temp 99.3 F 08/28/24 08:00 Pulse 69 08/28/24 09:00 Resp 22 08/28/24 09:00 BP 108/54 08/28/24 09:00 Pulse Ox 97 08/28/24 09:00 FiO2 70 08/28/24 09:00 Intake & Output 08/27/24 08/28/24 08/28/24 18:59 06:59 18:59 Intake Total 0423.510 9762.318 453.956 Output Total 3065 3370 225 Balance -1383.547 -1697.682 228.956 Weight 104.6 kg Intake: IV 970 1155 95 .9NS KVO 120 120 10 Cefepime 2 gm In Sodium 100 Chloride 0.9% 100 ml @ 25 mls/hr IVPB Q12H [facility] Rx# :[id number] Mvi, Adult No.4 with Vit 850 935 85 K 10 ml Trace (Conc-1Ml/ Dose) 1 ml Sodium Acetate 16 meq Potassium Acetate 14 meq Potassium Phosphate 21 mmol Magnesium Sulfate gm 0.75 gm Calcium Gluconate 1 gm In Amino Acids 5 %/ Dextrose 20 % 1,000 ml @ 75 mls/hr IV .[id number] [facility] Rx#:[id number] Intake, IV Titration 501.453 307.318 348.956 Amount Dexmedetomidine/0.9% NaCl 251.453 307.318 98.956 (Pmx) 400 mcg In Empty Bag 1 bag @ 0.2 MCG/KG/HR 5.575 mls/hr IV .[id number] [facility] Rx#:[id number] Heparin Sod,Pork in 0.45% 250 250 NaCl 25,000 unit In 0.45 % NaCl 1 250ml.bag @ 6. 826 UNITS/KG/HR 10 mls/hr IV .Q24H [facility] Rx#: [id number] Tube Feeding 120 120 10 Other 90 90 Output: Urine 3065 3370 225 Other: Voiding Method Indwelling Catheter Indwelling Catheter ABP, PAP, CO, CI - Last Documented Arterial Blood Pressure 126/54 - Labs CBC & Chem 7: 08/27/24 05:22 08/28/24 05:28 Labs: Abnormal Lab Results - Last 24 Hours (Table) 08/27/24 08/27/24 08/27/24 Range/Units 12:23 18:02 23:45 APTT (22.0-30.0) sec Sodium (137-145) mmol/L Chloride (98-107) mmol/L Carbon Dioxide (22-30) mmol/L BUN (9-20) mg/dL Creatinine (0.66-1.25) mg/dL Glucose (74-99) mg/dL POC Glucose (mg/dL) 339 H 303 H 320 H (70-110) mg/dL 08/28/24 08/28/24 08/28/24 Range/Units 05:28 05:28 06:45 APTT 46.8 H (22.0-30.0) sec Sodium 133 L (137-145) mmol/L Chloride 93 L (98-107) mmol/L Carbon Dioxide 33 H (22-30) mmol/L BUN 54 H (9-20) mg/dL Creatinine 1.29 H (0.66-1.25) mg/dL Glucose 337 H (74-99) mg/dL POC Glucose (mg/dL) 374 H (70-110) mg/dL Assessment and Plan Plan: Assessment: 1. Acute kidney injury secondary to ATN. Creatinine 1.5 in January 2024 and 2.5 this admission. Renal function improved. Creatinine fairly stable at 1.29. Nonoliguric. No hydronephrosis noted on CT. 2. Perforated gastric ulcer with pneumoperitoneum status post ex lap with closure of ulcer August 13, 2024. 3. Septic shock on vasopressor support. 4. Metabolic acidosis secondary to acute kidney injury and lactic acidosis. Improved. 5. Diabetes mellitus. 6. A-fib with RVR. On oral meds. Cardiology following. 7. Volume overload. Improving with diuresis. Plan: Maintain Lasix. TPN per surgery. Patient remains BiPAP dependent. Mentation poor. Comfort measures being considered.
--- NOTE | 2024-08-28 11:20 | P.PN ---
Subjective Progress Note Date: 08/28/24 SURGICAL PROGRESS NOTE CHIEF COMPLAINT: Perforated gastric ulcer HISTORY OF PRESENT ILLNESS: Patient is status post exploratory laparotomy and modified Kiet patch for perforated gastric ulcer on 08/13/24. Patient remains on BiPAP. He is on TPN for nutrition support. CODE STATUS is no code. Family is deciding to proceed with comfort care. PHYSICAL EXAM: VITAL SIGNS: Reviewed. GENERAL: no acute distress. ABDOMEN: Soft. Nondistended. NEUROLOGIC: Lethargic ASSESSMENT: 1. Perforated gastric ulcer status post exploratory laparotomy and modified Kiet patch 2. Hypokalemia improved 3. A-fib on IV heparin PLAN: -Family decided to proceed with comfort care possibly later today -Overall prognosis is poor and guarded -Continue TPN for nutrition support -Continue antibiotics -Continue IV Protonix Physician [employer] note has been reviewed by physician. Signing provider agrees with the documented findings, assessment, and plan of care. Objective - Vital Signs Vital signs: Vital Signs Temp 99.3 F 08/28/24 08:00 Pulse 73 08/28/24 10:00 Resp 24 08/28/24 10:00 BP 101/53 08/28/24 10:00 Pulse Ox 97 08/28/24 10:00 FiO2 70 08/28/24 09:00 Intake & Output 08/27/24 08/28/24 08/28/24 18:59 06:59 18:59 Intake Total 0181.482 1075.318 798.956 Output Total 3065 3370 1025 Balance -1383.547 -1697.682 -226.044 Weight 104.6 kg Intake: IV 970 1155 380 .9NS KVO 120 120 40 Cefepime 2 gm In Sodium 100 Chloride 0.9% 100 ml @ 25 mls/hr IVPB Q12H [facility] Rx# :[id number] Mvi, Adult No.4 with Vit 850 935 340 K 10 ml Trace (Conc-1Ml/ Dose) 1 ml Sodium Acetate 16 meq Potassium Acetate 14 meq Potassium Phosphate 21 mmol Magnesium Sulfate gm 0.75 gm Calcium Gluconate 1 gm In Amino Acids 5 %/ Dextrose 20 % 1,000 ml @ 75 mls/hr IV .[id number] [facility] Rx#:[id number] Intake, IV Titration 501.453 307.318 348.956 Amount Dexmedetomidine/0.9% NaCl 251.453 307.318 98.956 (Pmx) 400 mcg In Empty Bag 1 bag @ 0.2 MCG/KG/HR 5.575 mls/hr IV .[id number] [facility] Rx#:[id number] Heparin Sod,Pork in 0.45% 250 250 NaCl 25,000 unit In 0.45 % NaCl 1 250ml.bag @ 6. 826 UNITS/KG/HR 10 mls/hr IV .Q24H [facility] Rx#: [id number] Tube Feeding 120 120 40 Other 90 90 30 Output: Urine 3065 3370 1025 Other: Voiding Method Indwelling Catheter Indwelling Catheter Indwelling Catheter ABP, PAP, CO, CI - Last Documented Arterial Blood Pressure 126/54 - Labs CBC & Chem 7: 08/27/24 05:22 08/28/24 05:28 Labs: Abnormal Lab Results - Last 24 Hours (Table) 08/27/24 08/27/24 08/27/24 Range/Units 12:23 18:02 23:45 APTT (22.0-30.0) sec Sodium (137-145) mmol/L Chloride (98-107) mmol/L Carbon Dioxide (22-30) mmol/L BUN (9-20) mg/dL Creatinine (0.66-1.25) mg/dL Glucose (74-99) mg/dL POC Glucose (mg/dL) 339 H 303 H 320 H (70-110) mg/dL 08/28/24 08/28/24 08/28/24 Range/Units 05:28 05:28 06:45 APTT 46.8 H (22.0-30.0) sec Sodium 133 L (137-145) mmol/L Chloride 93 L (98-107) mmol/L Carbon Dioxide 33 H (22-30) mmol/L BUN 54 H (9-20) mg/dL Creatinine 1.29 H (0.66-1.25) mg/dL Glucose 337 H (74-99) mg/dL POC Glucose (mg/dL) 374 H (70-110) mg/dL Assessment and Plan Assessment: 79 yo male s/p gastric ulcer -continue tube feeds as tolerated Time with Patient: Less than 30
[2024-08-28 12:06] LABS: Glucose,Whole Blood 379 mg/dL (70-110)
--- NOTE | 2024-08-28 12:06 | P.PN ---
Subjective Progress Note Date: 08/28/24 Principal diagnosis: Abdominal pain. Patient was seen today on 08/23/2024, remains in ICU, intubated, mechanically ventilated, he is on assist-control rate of 14 tidal volume 500 FiO2 30% PEEP of 5. Yesterday the patient tolerated about 7 hours of pressure support of 8 and CPAP, however patient had very poor weaning parameters very marginal, and he was noted to be extremely weak, and sleepy hence patient was not extubated yesterday and I will try to do the same thing today. As a matter fact patient went for 1 hour on pressure support of 10 and CPAP, did fairly well except he remains very weak, and sleepy, and I did not feel that the patient is ready to be extubated. In addition to this the patient does have a temp of 102, white count is up to 14, and debating whether to consider CT of the abdomen and pelvis, although clinically his abdominal exam seems to be relatively benign. No tenderness, no rebound, no guarding. Patient is not requiring any norepinephrine at this point, however he is on heparin he is on Precedex at 0.3 TPN at 80 mL/h, and his chest x-ray continues to show right lower lobe atelectasis and small pleural effusion. Patient is on fluconazole and Zosyn. Again abdomen is soft, and does not seem to be surgical at this point. ABG showed a pO2 of 68 pCO2 37 pH of 7.47 and this was done on a pressure support of 10 and CPAP after 1 hour. WBC count is 14.3 hemoglobin 9.8 electrolytes are normal BUN is 45 creatinine 1.32. Patient was seen today on 08/24/2024, patient remains intubated and mechanically ventilated, remains on the same vent settings including tidal volume of 500 rate 14 FiO2 30% and PEEP of 5. However as I walked in to see the patient, minutes earlier apparently the patient extubated himself, and the tube has to be adva nced by respiratory therapy back, and it was already pulled almost 5 cm proximally. Patient is having anxiety and agitation, there is some air leak, patient is not getting his tidal volumes, hence I recommended that we proceed to extubating the patient to BiPAP. Patient is following instructions, but he seems to be generally weak and slow. He is on Precedex he is on TPN, he is also on heparin and norepinephrine is presently on hold. Reviewed his chest x-ray today, showed mostly atelectasis and small right-sided pleural effusion which may or may not require thoracentesis. Reviewed his labs, and ABG this morning showed a pO2 of 68 pCO2 32 pH of 7.50 his basic metabolic profile is normal. Creatinine 1.26, blood sugar is 238. Considering the patient was marginal for extubation and considering the event this morning, I went ahead and recommended extubating the patient to BiPAP. And this was done, patient seemed to tolerate that better than being on mechanical ventilation at this point. Patient was seen today on 08/25/2024, patient remains in the ICU very marginal and remains quite ill. He tolerated the extubation so far, but the patient is not quite ready to be transferred out of the ICU as he remains very marginal mostly with his profound weakness and unable to cough vigorously to clear his secretions. Chest x-ray continues to show right lower lobe atelectasis and pleural effusion hence I am recommending an ultrasound of the chest may consider thoracentesis on this patient. In the meantime I discussed his condition with surgery today, seem to be concerned about his abdomen and recommending CT of the abdomen pelvis with oral contrast which will be done today. Today the patient is on 4 L nasal cannula, he is on Precedex because of agitation yesterday he is on 0.3 mcg/kg/h he is also on TPN, Zosyn and Eraxis and norepinephrine is presently on hold. Ultrasound of the chest did not actually show a right-sided pocket or fluid hence no marking was placed, and I believe the findings are mostly findings of atelectasis no pleural effusion that is worth pursuing at this point. Patient is having worsening leukocytosis with WBC of 18.8 hemoglobin is 8.7 his electrolytes are normal renal profile is normal BUN is 44 creatinine 1.17 PTT is 47.2 Seen today on 08/26/2024, patient is presently on BiPAP, 12/5/60%. Remains on Precedex at 0.5 mg/kg/h. Patient is on amiodarone as he went into atrial fibrillation with RVR earlier this morning and I recommended amiodarone bolus and amiodarone drip. His amiodarone is at 0.5 mg/min. He patient is on heparin, TPN at 85 cc/h vital HP at 10 mL/h. Remains on Zosyn, patient is extremely weak, arousable but seems to be very weak, follows very simple instructions only. His chest x-ray continues to show right lower lobe consolidation no pleural effusion noted on ultrasound. Patient is having difficulty clearing his secretions, does not seem to have a vigorous cough to clear his airways. And I had a feeling that the patient may end up going back on mechanical ventilation. Will have to address his CODE STATUS with the family as the patient seems to have very poor prognostic picture, and seems to have failure to thrive. His CT of the abdomen yesterday showed no evidence of any surgical process. Remains empirically on Zosyn. Remains on Lasix 40 mg IV push every 8 hours, he has good urine output. Patient is also on Eraxis. And now he is on amiodarone which was added this morning. Looking at his overall clinical picture, I have a strong feeling that the patient may end up requiring reintubation mechanical ventilation, at this point he is marginal. And if he does end up intubated and mechanically ventilated, patient will need to have tracheostomy and PEG tube placement down the line. WBC count today is 16.7 hemoglobin is 8.7 PTT is 57 electrolytes are normal BUN is 44 creatinine 1.19 blood sugar is 274 Seen today on 08/27/2024, patient's clinical status deteriorated and worsened yesterday as expected, I was notified about this patient desaturating down to the 70s, hence I recommended increasing his FiO2, kept him on BiPAP 18/11, actually I recommended immediate intubation as she remained the is keeping him full code. However shortly after I found that the wanted him to be DNR , and did not want him to be intubated. Hands kept him on BiPAP he is on 18/11/60% right now he is on Precedex at 1 mcg/kg/h heparin drip, TPN at 85 cc/h amiodarone at 0.5 mg/min vital HP at 10 cc/h patient remains on Lasix 40 IV push acute 8 hours and he is also on cefepime. WBC count today is 15 hemoglobin 8.8 PTT is 58 electrolytes are normal BUN is 49 creatinine 1.18 blood sugar is 329. Chest x-ray continues show evidence of cardiomegaly and right-sided consolidation/atelectasis. Progress note dated August 28, 2024. This is a 79-year-old male who seen in room 255. His was in the room. We had a long conversation about CODE STATUS and about comfort care. The patient was admitted back on August 12 with abdominal pain, and was found to have a perforated gastric ulcer. He had surgery, and has been intubated, between August 13 and August 24. On the , he apparently self extubated himself. Currently, he is getting TPN at 85 cc an hour. He continues on BiPAP of 14/6 and 70%. He is getting saline at KVO, and heparin via weight-based protocol. In addition, he had patient is on Precedex, at 1 mcg/kg/h. Current labs include a PTT of 46.8, sodium 133, potassium 4, chloride 93, CO2 33, BUN 54, creatinine 1.29. Glucose 374. Calcium 9.1, phosphorus 3.8, magnesium 2.0. Cultures are negative. Chest x-ray was not done today. Objective - Vital Signs Vital signs: Vital Signs Temp 99.3 F 08/28/24 08:00 Pulse 69 08/28/24 11:25 Resp 18 08/28/24 11:00 BP 95/59 08/28/24 11:00 Pulse Ox 96 08/28/24 11:00 FiO2 70 08/28/24 11:16 Intake & Output 08/27/24 08/28/24 08/28/24 18:59 06:59 18:59 Intake Total 7883.196 4489.318 903.956 Output Total 3065 3370 1375 Balance -1383.547 -1697.682 -471.044 Weight 104.6 kg Intake: IV 970 1155 475 .9NS KVO 120 120 50 Cefepime 2 gm In Sodium 100 Chloride 0.9% 100 ml @ 25 mls/hr IVPB Q12H [facility] Rx# :[id number] Mvi, Adult No.4 with Vit 850 935 425 K 10 ml Trace (Conc-1Ml/ Dose) 1 ml Sodium Acetate 16 meq Potassium Acetate 14 meq Potassium Phosphate 21 mmol Magnesium Sulfate gm 0.75 gm Calcium Gluconate 1 gm In Amino Acids 5 %/ Dextrose 20 % 1,000 ml @ 75 mls/hr IV .[id number] [facility] Rx#:[id number] Intake, IV Titration 501.453 307.318 348.956 Amount Dexmedetomidine/0.9% NaCl 251.453 307.318 98.956 (Pmx) 400 mcg In Empty Bag 1 bag @ 0.2 MCG/KG/HR 5.575 mls/hr IV .[id number] [facility] Rx#:[id number] Heparin Sod,Pork in 0.45% 250 250 NaCl 25,000 unit In 0.45 % NaCl 1 250ml.bag @ 6. 826 UNITS/KG/HR 10 mls/hr IV .Q24H [facility] Rx#: [id number] Tube Feeding 120 120 50 Other 90 90 30 Output: Urine 3065 3370 1375 Other: Voiding Method Indwelling Catheter Indwelling Catheter Indwelling Catheter ABP, PAP, CO, CI - Last Documented Arterial Blood Pressure 126/54 - Exam No acute distress, poorly responsive, BiPAP mask in place. HEENT examination is grossly unremarkable. Neck supple. Full range of motion. No adenopathy thyromegaly or neck vein distention. Cardiovascular examination reveals regular rhythm rate. S1-S2 normal. No S3 or S4. No discernible murmur noted. Heart sounds are distant. Lungs reveal scattered bilateral rhonchi. No wheezes or crackles. Breath sounds equal bilaterally. Saturations are 96%. Abdomen soft and without bowel sounds. No masses or tenderness. Extremities are intact. No cyanosis clubbing or edema. Skin is without rash or lesion. Neurologic examination cannot be adequately evaluated at this time. - Labs CBC & Chem 7: 08/27/24 05:22 08/28/24 05:28 Labs: Abnormal Lab Results - Last 24 Hours (Table) 08/27/24 08/27/24 08/27/24 Range/Units 12:23 18:02 23:45 APTT (22.0-30.0) sec Sodium (137-145) mmol/L Chloride (98-107) mmol/L Carbon Dioxide (22-30) mmol/L BUN (9-20) mg/dL Creatinine (0.66-1.25) mg/dL Glucose (74-99) mg/dL POC Glucose (mg/dL) 339 H 303 H 320 H (70-110) mg/dL 08/28/24 08/28/24 08/28/24 Range/Units 05:28 05:28 06:45 APTT 46.8 H (22.0-30.0) sec Sodium 133 L (137-145) mmol/L Chloride 93 L (98-107) mmol/L Carbon Dioxide 33 H (22-30) mmol/L BUN 54 H (9-20) mg/dL Creatinine 1.29 H (0.66-1.25) mg/dL Glucose 337 H (74-99) mg/dL POC Glucose (mg/dL) 374 H (70-110) mg/dL Assessment and Plan Assessment: Acute hypoxemic respiratory failure secondary to acute surgical abdomen, perforated gastric ulcer, and subsequent surgery. Pneumoperitoneum, status post exploratory laparotomy abdominal washout, and modified Kiet patch, postop day #16. Abdominal sepsis. Hypotension secondary to sepsis, recovered. Hypoalbuminemia. Severe left ventricular dysfunction with an ejection fraction of 35%. Acute blood loss anemia, status post 2 units of packed red blood cells. Acute kidney injury secondary to septic shock. Chronic atrial fibrillation. History of hypertension. History of prostate cancer. Critical illness polyneuropathy. Failure to thrive. Plan: Plan dated August 28, 2024. The patient has not been here for 16 days. He was initially admitted back on August 12 with abdominal pain, and was found to have a perforated gastric ulcer. The patient had surgery that same night, and came back into the intensive care unit, and was there on the ventilator between August 13 and August 24. Since that time, he has done very poorly. He continues on TPN at 85 cc an hour, BiPAP with settings of 14/6 and 70%, and heparin via weight-based protocol. In addition, he continues on Precedex at 1 mcg/kg/h. I had a long conversation with the , who is at the bedside. The patient already was a DNR. We talked about comfort care. The patient apparently would never have wanted to be this way, and she agreed to proceed with comfort care, and her family members were on their way into the hospital. It was a good conversation, witnessed by the nurses, and our nurse practitioner. All labs x-rays, and medications are reviewed. Dictation was produced using [employer] software. Please excuse any grammatical, word or spelling errors. Time with Patient: Greater than 30
[2024-08-28 12:11] VITALS: BMI 33.0
[2024-08-28 13:34] VITALS: TEMP 100.2
[2024-08-28] MEDS ORDERED: ARTIFICIAL TEARS-HYPROMELLOSE DROPS 15 ML BTL BOTH EYES PRN (13:37)
[2024-08-28] MEDS ORDERED: LORazepam 2 MG/ML INJ IV PRN (13:37)
[2024-08-28] MEDS: MORPHINE SULFATE 4 MG/ML SYRINGE IVP PRN (13:48)
[2024-08-28] MEDS: MORPHINE SULFATE 100 MG in SODIUM CHLORIDE 0.9% 90 ML IV SCH (14:01)
[2024-08-28] MEDS: SCOPOLAMINE 1 MG/72 HR PATCH TRANSDERM SCH (14:03)
[2024-08-28] MEDS: LORazepam 1 MG/0.5 ML VIAL IV PRN (14:16)
[2024-08-28 14:33] VITALS: BP 106/63; PULSE 84; RESP 28
[2024-08-28] MEDS: 1: MVI, ADULT NO.4 WITH VIT K 10 ML, TRACE (CONC-1ML/DOSE) 1 ML, SODIUM CHLORIDE 4MEQ/ML IV SCH (16:26)
--- NOTE | 2024-08-29 09:57 | P.PN ---
Subjective Progress Note Date: 08/28/24 This is a 79-year-old male who was monitored in the intensive care unit. He is postoperative day #2 repair of perforated gastric ulcer with Kiet patch. He remains sedated and intubated on the mechanical ventilator. Patient has been febrile with a Tmax of 101.7 axillary in the last 24 hours. He was noted to be in atrial fibrillation with RVR and has been started on IV Cardizem. Eliquis remains on hold postsurgically. Patient continues on multiple antibiotic therapy including IV fluconazole IV Zosyn with infectious disease following closely. He is currently sedated with propofol he is requiring Levophed and vasopressin support. Blood culture remains negative so far. Labs reveal a white blood cell complement 3.7, hemoglobin 9.5, sodium 139, potassium 4.1, BUN of 31 creatinine 3.52 calcium of 6.8 chest x-ray today reveals continued CHF exacerbation and fluid overload state with no significant for 1 day earlier. Patient does have hypotensive bowel sounds. 08/15/2024 Patient is evaluated in the ICU he remains on the mechanical ventilator with PEEP of 5 and FiO2 of 30%. He is postoperative day #3 repair of perforated gastric ulcer with kiet patch. Currently sedated with propofol. Chest xray findings suggest continued CHF exacerbation fluid over load state. worsening left basilar opacity could reflect acute infiltrate and or atelectasis. Correlate clinically. White blood cell count 27.7, hgb 8.5, sodium 141, potassium 3.9, BUN 58, creatinine 2.10. Magnesium 1.8. 08/16/2024 Patient is evaluated today in the intensive care unit he is postoperative day #4 to get with Kiet patch. Patient remains sedated with propofol. He is currently intubated and on mechanical ventilator with a PEEP of 5 and FiO2 of 30%. Chest x-ray today reveals worsening CHF. His white blood cell count today is 20.9, hemoglobin 8, BUN of 49 creatinine of 1.87. Patient remains on room. He was having runs of V. tach and was taken off IV Cardizem started on an oral metoprolol on an outpatient basis. his heart rate is controlled. He continues on IV Zosyn. He remains on IV fluconazole. Blood sugars are elevated after the start of TPN. He was started on a small dose of Lantus and we will continue to monitor and make adjustments as needed. 08/17/2024 Patient is evaluated today in the ICU. He remains sedated and intubated on the mechanical ventilator. PEEP of 5 and FiO2 of 40%. Patient currently undergoing sedation holiday and has not been responsive. Patient received IV lasix x 1 and has since been started on IV lasix 40 mg [id number]. Patient remains on IV heparin. Continues on IV metoprolol and no further reports of ectopi noted. White blood cell count 18.0, hgb 7.5, BUN 39, creatinine 1.64. Blood glucose remains elevated in the 200s. Chest xray today reveals continued CHF. 08/18/2024 Patient is evaluated in follow-up in the intensive care unit. He remains sedated and intubated on mechanical ventilator. Patient is a PEEP of 5 and FiO2 of 40%. Labs today reveals white blood cell count 18.4, hgb 7.4, BUN 38, creatinine 1.45. Blood glucose in the 200s. Patient remains on IV fluconazole and IV zosyn. Remains on IV heparin. Patient on small dose of levo. Continues on TPN. Patient had low grade fever 100.1 overnight. 08/19/2024 Patient is eval seen in follow-up in the intensive care unit. He remains sedated and intubated on mechanical ventilator. He is any sedation held today and is more awake alert with spontaneous eye opening and tracking. His daughter is at the bedside. Ventilator settings were adjusted and he continues on a PEEP of 5 with an FiO2 of 30%. He remains on IV fluconazole and IV Zosyn. Chest x- ray today reveals stable findings suggestive of CHF overload state. He continues on IV Lasix which was increased to 40 mg every 8 hours. He continues on IV heparin. He is on a small dose of Levophed. 08/20/2024 Patient is evaluated in follow-up in the intensive care unit. Patient remains a sedated intubated on the mechanical ventilator his FiO2 remains at 30%. He is more awake alert and oriented. Family at the bedside. Patient continues on a course of IV fluconazole and IV Zosyn. ID following closely. He remains on IV heparin. Patient continues with TPN. He remains on IV Lasix 40 mg every 8 hours. Chest x-ray today reveals CHF. Labs today white blood cell count 14.8, hemoglobin 7.1, BUN of 42 creatinine of 1.31 sodium of 143. 08/21/2024 Patient is seen in follow-up remains in the ICU on mechanical ventilation. Per nursing staff attempting to wean and extubate although unsuccessful and patient is currently maintained on mechanical ventilation FiO2 is 50% with a PEEP of 5. Patient is to continue on IV Lasix and would recommend continuing as there is significant overload noted. Patient only on fluconazole and will repeat blood cultures also reinitiate Zosyn as patient is having elevated white count and low-grade temps. 08/22/2024 Patient seen in the ICU remains on mechanical ventilation with an FiO2 of 50% and PEEP is 5. White count is trending down at 14 today and patient is afebrile. Patient is continued on Zosyn and also fluconazole although will transition to Eraxis. Patient continues on Lasix continues with significant swelling although somewhat improved. Family at bedside with questions and concerns that were answered. Will attempt sedation trials to monitor mentation with no plans of extubation at this time. 08/23/2024 Patient continues in the ICU on mechanical ventilation and PEEP is at 5 with an FiO2 of 30%. Patient is waking up on sedation trials and per at the bedside has been biting on the OG tube although not following commands. No plans of extubation at this time. Patient is continued on Zosyn and also Eraxis and white count is elevated above 14 and having fevers overnight. Patient will continue on antibiotics and follow-up on cultures along with repeat CBC in AM. Patient continues on IV Lasix showing some improvement in of upper lower extremities although continues to be significantly edematous. 08/24/2024 Patient is seen this morning in the ICU recently per nursing staff had been pulling on ET tube and has been extubated per pulmonary ship unloader maintained on 4 L via nasal cannula. Patient continues on low-dose pressor support and being weaned. Patient to continue on Zosyn along with Eraxis and awaiting white count to improve. White count today is further elevated at 16 and patient did have low-grade temps this morning although improved from yesterday. Patient is currently maintained on TPN and will continue for now per surgery. Follow-up on repeat labs in the AM. 08/25/2024 Patient is seen in follow-up in the ICU with multiple consultations following. Patient continues to have an elevated white count above 18 and has continued wit h low-grade temps. General surgery recommending CT abdomen for further evaluation which is pending at this time. Patient continues on low-dose Precedex as patient was agitated and weaning as tolerated. Pressor support currently on hold as blood pressures are minimally improved. Chest x-ray poppy nues to show pleural effusions and a chest ultrasound was ordered and pending. Continue with IV Lasix and monitor kidney functions and electrolytes closely. Replace electrolytes per protocol. 08/28/2024 Patient is seen in follow-up today remains in poor critical condition with no significant improvements discussing comfort care and has been made no code. Patient maintained on antibiotics with multiple consultations following. Patient remains on nasal cannula and family awaiting further family and will proceed with comfort care. Overall prognosis guarded and poor at this time. Unable to complete a review of systems as patient is lethargic and mostly obtunded PHYSICAL EXAMINATION: GENERAL: The patient is obtunded, lethargic, currently on 4 L. Well developed, ill-appearing, elderly appearing, obese. Pale HEENT: Pupils are round and equally reacting to light. EOMI. No scleral icterus. No conjunctival pallor. Normocephalic, atraumatic. No pharyngeal erythema. No thyromegaly. CARDIOVASCULAR: S1 and S2 muffled PULMONARY: Diminished breath sounds bilaterally with some faint crackles and significant bronchial congestion noted ABDOMEN: Soft, obese, nontender, nondistended, Hypoactive bowel sounds. No palpable organomegaly. MUSCULOSKELETAL: No joint swelling or deformity. EXTREMITIES: No cyanosis, clubbing, or pedal edema. Upper and lower generalized edema, 1+ pitting NEUROLOGICAL: Gross neurological examination did not reveal any focal deficits. Diffusely weak SKIN: No rashes. Pale Assessment: Perforated gastric ulcer pneumoperitoneum postoperative surgical repair with Kiet patch Septic shock secondary to above Acute hypoxic respiratory failure secondary to assessment #1 requiring mechanical ventilation, recently extubated maintained on 4 L Acute kidney injury due to acute tubular necrosis from infection Atrial fibrillation with rapid ventricular rate, currently rate controlled Acute CHF exacerbation, systolic dysfunction EF 35-40%. History of atrial fibrillation, maintained on oral anticoagulant outpatient, currently on heparin Diabetes mellitus type 2, uncontrolled with hyperglycemia History of stage III pancreatic cancer History hypertension Hyperlipidemia Obesity with a BMI of 35.1 VTE prophylaxis continues on IV heparin GI prophylaxis No code Plan: Patient continues in the ICU with multiple consultations following and recently extubated maintained on 4 L. Patient also continues on and is being weaned off pressor support Overall prognosis is poor and lengthy discussion was had with family and ship unloader and was made no code and will be made comfort measures later this afternoon when rest of family arrives Patient is maintained on antibiotics continues to have an elevated white count and low-grade temps Mentation is poor and mostly obtunded. We will follow with general surgery as needed. Thank you kindly for this consultation Again overall prognosis is extremely poor at this time. The impression and plan of care has been dictated by Chinyere Pruitt, Nurse Practitioner as directed. Dr. Cruz MD I have performed a history and physical examination and medical decision making of this patient, discussed the same with the dictator, and agree with the dictators assessment and plan as written, documented as a scribe. Based on total visit time, I have performed more than 50% of this visit. Objective - Vital Signs Vital signs: Vital Signs Temp 100.2 F H 08/28/24 12:00 Pulse 84 08/28/24 14:00 Resp 28 H 08/28/24 14:00 BP 106/63 08/28/24 14:00 Pulse Ox 97 08/28/24 13:00 FiO2 70 08/28/24 12:00 Intake & Output 08/28/24 08/29/24 08/29/24 18:59 06:59 18:59 Intake Total 2501.715 Output Total 1975 Balance 526.715 Weight 104.6 kg Intake: IV 707 .9NS KVO 70 Fat Emulsion 20% 250 ml 42 In Empty Bag 1 bag @ 21 mls/hr IV Q72H [facility] Rx#: [id number] Mvi, Adult No.4 with Vit 595 K 10 ml Trace (Conc-1Ml/ Dose) 1 ml Sodium Acetate 16 meq Potassium Acetate 14 meq Potassium Phosphate 21 mmol Magnesium Sulfate gm 0.75 gm Calcium Gluconate 1 gm In Amino Acids 5 %/ Dextrose 20 % 1,000 ml @ 75 mls/hr IV .[id number] [facility] Rx#:[id number] Intake, IV Titration 1664.715 Amount Dexmedetomidine/0.9% NaCl 245.879 (Pmx) 400 mcg In Empty Bag 1 bag @ 0.2 MCG/KG/HR 5.575 mls/hr IV .[id number] [facility] Rx#:[id number] Heparin Sod,Pork in 0.45% 359.869 NaCl 25,000 unit In 0.45 % NaCl 1 250ml.bag @ 6. 826 UNITS/KG/HR 10 mls/hr IV .Q24H [facility] Rx#: [id number] Morphine Sulfate 100 mg 6.967 In Sodium Chloride 0.9% 90 ml @ 2 MG/HR 2 mls/hr IV .Q24H [facility] Rx#: [id number] Sodium Acetate 40 meq 1052 Potassium Phosphate 9 mmol Magnesium Sulfate gm 0.5 gm Potassium Chloride 36 meq Calcium Gluconate 1 gm In Amino Acids 5 %/Dextrose 20 % 1 ,000 ml @ 85 mls/hr IV . BY DURATION [facility] Rx#: [id number] Tube Feeding 70 Other 60 Output: Urine 1975 Other: Voiding Method Indwelling Catheter ABP, PAP, CO, CI - Last Documented Arterial Blood Pressure 126/54 - Labs CBC & Chem 7: 08/27/24 05:22 08/28/24 05:28 Labs: Abnormal Lab Results - Last 24 Hours (Table) 08/28/24 Range/Units 12:04 POC Glucose (mg/dL) 379 H (70-110) mg/dL
--- NOTE | 2024-08-30 11:51 | CDI ---
Documentation Clarification Form Date: 08/31/2024 11:27:37 AM From: Nancy Pickard Phone: Admit Date: 08/12/2024 10:10:00 PM Patient Name: Clinton Simmons Visit Number: [id number] Discharge Date: 08/28/2024 10:42:00 PM ATTENTION: The Clinical Documentation Specialists (CDI) and [facility] Coding Staff appreciate your assistance in clarifying documentation. Please respond to the clarification below the line at the bottom and electronically sign. The CDI & [facility] Coding staff will review the response and follow-up if needed. Please note: Queries are made part of the Legal Health Record. If you have any questions, please contact the author of this message via ITS. Doctor/Provider: Tonio Dill Unspecified CKD is documented per multiple Progress Notes. Additional clarification regarding the stage of CKD is requested. History/Risk Factors: 79yo M, oliguric, ATN, perforated gastric ulcers, septic shock, ABLA, AHRF on vent, persistent A Fib, DMII w hyperglycemia, Prostate Cx, Hx pancreatic Cx, HLD, obesity Creatinine 1.5 in January 2024 and 2.5 this admission Clinical Indicators: BUN: 08/12 93 08/16 49 08/23 45 08/28 54 CR: 08/12 2.55 08/16 1.87 08/23 1.32 08/28 1.29 GFR: 08/12 23 08/16 34-39 08/23 52-60 08/28 53-61 Treatment: Renal function improved. Creatinine fairly stable at 1.29. Nonoliguric. Nohydronephrosisnoted onCT. Please clarify the stage of the CKD, if known: [ ] CKD Stage 2 [ ] CKD Stage 3a [ ] CKD Stage 3b [ ] Other, please specify [ ] Unable to determine Reference: National Kidney Foundation Stage 1 eGFR = 90 and kidney damage for =3 months Stage 2 eGFR 60-89 and kidney damage for =3 months Stage 3a eGFR 45-59 and kidney damage for =3 months Stage 3b eGFR 30-44 and kidney damage for =3 months Stage 4 eGFR 15-29 r and kidney damage for =3 months Stage 5 eGFR <15 and kidney damage for =3 months (Template last revised: June 2023) MTDD
--- NOTE | 2024-08-31 11:04 | CDI ---
Documentation Clarification Form Date: 08/31/2024 11:02:25 AM From: Nancy Pickard Phone: Admit Date: 08/12/2024 10:10:00 PM Patient Name: Clinton Simmons Visit Number: [id number] Discharge Date: 08/28/2024 10:42:00 PM ATTENTION: The Clinical Documentation Specialists (CDI) and [facility] Coding Staff appreciate your assistance in clarifying documentation. Please respond to the clarification below the line at the bottom and electronically sign. The CDI & [facility] Coding staff will review the response and follow-up if needed. Please note: Queries are made part of the Legal Health Record. If you have any questions, please contact the author of this message via ITS. Doctor/Provider: Tonio Dill Unspecified CKD is documented per multiple Progress Notes. Additional clarification regarding the stage of CKD is requested. History/Risk Factors: 79yo M, oliguric, ATN, perforated gastric ulcers, septic shock, ABLA, AHRF on vent, persistent A Fib, DMII w hyperglycemia, Prostate Cx, Hx pancreatic Cx, HLD, obesity Creatinine 1.5 in January 2024 and 2.5 this admission Clinical Indicators: BUN: 08/12 93 08/16 49 08/23 45 08/28 54 CR: 08/12 2.55 08/16 1.87 08/23 1.32 08/28 1.29 GFR: 08/12 23 08/16 34-39 08/23 52-60 08/28 53-61 Treatment: Renal function improved. Creatinine fairly stable at 1.29. Nonoliguric. Nohydronephrosisnoted onCT. Please clarify the stage of the CKD, if known: [ ] CKD Stage 2 [ x] CKD Stage 3a [ ] CKD Stage 3b [ ] Other, please specify [ ] Unable to determine Reference: National Kidney Foundation Stage 1 eGFR = 90 and kidney damage for =3 months Stage 2 eGFR 60-89 and kidney damage for =3 months Stage 3a eGFR 45-59 and kidney damage for =3 months Stage 3b eGFR 30-44 and kidney damage for =3 months Stage 4 eGFR 15-29 r and kidney damage for =3 months Stage 5 eGFR <15 and kidney damage for =3 months (Template last revised: June 2023) MTDD
--- NOTE | 2024-09-06 22:16 | P.DS ---
Providers Date of admission: 08/12/24 22:10 Attending physician: Maik Raymond DO Consults: 08/12/24 22:01 Consult Physician Stat Consulting Provider: Edin Carbajal Consult Reason/Comments: ICU management/pneumoperitoneum Do you want consulting provider notified?: Yes Consult Physician Urgent Consulting Provider: Peña Bolaños Consult Reason/Comments: med management Do you want consulting provider notified?: Yes 08/13/24 05:28 Consult Physician Urgent Consulting Provider: Breanna Kwon Consult Reason/Comments: TY Do you want consulting provider notified?: Yes 08/14/24 00:44 Consult Physician Routine Consulting Provider: Dion Campbell Consult Reason/Comments: Afib RVR Do you want consulting provider notified?: Yes, Notify in am 08/26/24 09:41 Consult Physician Routine Consulting Provider: Rui Pham Consult Reason/Comments: a-fib Do you want consulting provider notified?: Yes Primary care physician: Brian Beach MD Hospital Course: The patient was brought to the hospital emergently secondary to abdominal pain and CT scan revealed a perforation the patient was taken to the operating room for emergent exploratory laparotomy with repair of gastric perforation. Of note family was at bedside and patient had a history of drinking. He remained intubated postoperatively was in the ICU for several days with TPN dependence. Once the patient was optimized from pulmonary standpoint the patient was finally extubated upper GI study was done and showed that the perforation was completely repaired and was started on tube feeds however patient struggled with his pulmonary status was make comfort care. The patient 08/31 Patient Condition at Discharge: Critical Plan - Discharge Summary New Discharge Prescriptions: No Action Timolol 0.5% Ophth Soln [Timoptic 0.5% Ophth Soln] 1 drop BOTH EYES DAILY Atorvastatin [Lipitor] 20 mg PO DAILY metFORMIN HCL ER [Glucophage XR] 1,000 mg PO BID Insulin Glargine/Lixisenatide [Soliqua 100 Unit-33 Mcg/ml Pen] 25 units SQ DAILY@0600 Metoprolol Tartrate [Lopressor] 100 mg PO Q8H Escitalopram [Lexapro] 10 mg PO DAILY Tamsulosin HCl [Flomax] 0.4 mg PO DAILY Rivaroxaban [Xarelto] 20 mg PO W/SUPPER Dapagliflozin Propanediol [Farxiga] 10 mg PO DAILY Digoxin [Lanoxin] 125 mcg PO DAILY Discharge Medication List Atorvastatin [Lipitor] 20 mg PO DAILY 01/24/19 [History] Timolol 0.5% Ophth Soln [Timoptic 0.5% Ophth Soln] 1 drop BOTH EYES DAILY 01/24/19 [History] Dapagliflozin Propanediol [Farxiga] 10 mg PO DAILY 08/13/24 [History] Digoxin [Lanoxin] 125 mcg PO DAILY 08/13/24 [History] Escitalopram [Lexapro] 10 mg PO DAILY 08/13/24 [History] Insulin Glargine/Lixisenatide [Soliqua 100 Unit-33 Mcg/ml Pen] 25 units SQ DAILY@0600 08/13/24 [History] Metoprolol Tartrate [Lopressor] 100 mg PO Q8H 08/13/24 [History] Rivaroxaban [Xarelto] 20 mg PO W/SUPPER 08/13/24 [History] Tamsulosin HCl [Flomax] 0.4 mg PO DAILY 08/13/24 [History] metFORMIN HCL ER [Glucophage XR] 1,000 mg PO BID 08/13/24 [History] Follow up Appointment(s)/Referral(s): Brian Beach MD [Primary Care Provider] - 1-2 days Discharge Disposition: - Preliminary Cause of Preliminary Cause of : cardiopulmonary disease Pending Studies Pending Results: none
== END 2024-08-28 22:42 | disposition expired | DRG 853 ==
LOC: EC 20:22 → 2SICU 22:10
PROVIDERS: ADMIT Surgery; ATTEND Surgery
PROC: 0DQ60ZZ Repair Stomach, Open Approach (ICD-10-PCS; principal; 2024-08-13)
PROC: 3E033XZ Introduction of Vasopressor into Peripheral Vein, Percutaneous Approach (ICD-10-PCS; 2024-08-13)
PROC: 30233N1 Transfusion of Nonautologous Red Blood Cells into Peripheral Vein, Percutaneous Approach (ICD-10-PCS; 2024-08-13)
PROC: 5A1955Z Respiratory Ventilation, Greater than 96 Consecutive Hours (ICD-10-PCS; 2024-08-13)
PROC: 02HV33Z Insertion of Infusion Device into Superior Vena Cava, Percutaneous Approach (ICD-10-PCS; 2024-08-14)
PROC: 3E0436Z Introduction of Nutritional Substance into Central Vein, Percutaneous Approach (ICD-10-PCS; 2024-08-14)
PROC: 0D9670Z Drainage of Stomach with Drainage Device, Via Natural or Artificial Opening (ICD-10-PCS; 2024-08-14)
PROC: 6A550Z0 Pheresis of Erythrocytes, Single (ICD-10-PCS; 2024-08-21)
PROC: 5A09357 Assistance with Respiratory Ventilation, Less than 24 Consecutive Hours, Continuous Positive Airway Pressure (ICD-10-PCS; 2024-08-24)
PROC: 3E033RZ Introduction of Antiarrhythmic into Peripheral Vein, Percutaneous Approach (ICD-10-PCS; 2024-08-25)
DX: A41.9 Sepsis, unspecified organism (principal); I50.23 Acute on chronic systolic (congestive) heart failure; R65.21 Severe sepsis with septic shock; K25.6 Chronic or unspecified gastric ulcer with both hemorrhage and perforation; N17.0 Acute kidney failure with tubular necrosis; J96.01 Acute respiratory failure with hypoxia; K65.1 Peritoneal abscess; J18.9 Pneumonia, unspecified organism; G62.81 Critical illness polyneuropathy; I27.22 Pulmonary hypertension due to left heart disease; J91.8 Pleural effusion in other conditions classified elsewhere; C61 Malignant neoplasm of prostate; I13.0 Hypertensive heart and chronic kidney disease with heart failure and stage 1 through stage 4 chronic kidney disease, or unspecified chronic kidney disease; E11.65 Type 2 diabetes mellitus with hyperglycemia; N18.31 Chronic kidney disease, stage 3a; E66.9 Obesity, unspecified; D50.9 Iron deficiency anemia, unspecified; I42.9 Cardiomyopathy, unspecified; I48.19 Other persistent atrial fibrillation; R64 Cachexia; E87.20 Acidosis, unspecified; D62 Acute posthemorrhagic anemia; J93.82 Other air leak; I47.10 Supraventricular tachycardia, unspecified; E11.22 Type 2 diabetes mellitus with diabetic chronic kidney disease; Z79.4 Long term (current) use of insulin; Z51.5 Encounter for palliative care; Z66 Do not resuscitate; R62.7 Adult failure to thrive; K66.8 Other specified disorders of peritoneum; E88.09 Other disorders of plasma-protein metabolism, not elsewhere classified; Z68.35 Body mass index [BMI] 35.0-35.9, adult; E78.5 Hyperlipidemia, unspecified; E87.6 Hypokalemia; I49.3 Ventricular premature depolarization; R45.1 Restlessness and agitation; F41.9 Anxiety disorder, unspecified; Z85.07 Personal history of malignant neoplasm of pancreas; Z79.84 Long term (current) use of oral hypoglycemic drugs; Z79.82 Long term (current) use of aspirin; Z79.899 Other long term (current) drug therapy
CPT/HCPCS: 36415; 36430; 36600; 70450; 71045; 74176; 76604; 80048; 80053; 81001; 82040; 82150; 82330; 82533; 82805; 83605; 83690; 83735; 84100; 84132; 84478; 84484; 85025; 85027; 85610; 85730; 86850; 86900; 86901; 86920; 87040; 87636; 93005; 93306; 93308; 94002; 94003; 94640; 94660; 96361; 96365; 96375; 96376; 99291